=== PATIENT | female | born 1995 | race Caucasian/White ===

== ENCOUNTER → 2017-09-01 10:30 | Outpatient (CLI) | payer OTHER, SELFPAY | PROVIDERS: Visit Provider Obstetrics & Gynecology | DX: Z12.4 Encounter for screening for malignant neoplasm of cervix (principal) | CPT/HCPCS: 88175; G0145 ==

== ENCOUNTER → 2019-07-25 | Outpatient (CLI) | payer OTHER, SELFPAY ==
[2019-07-28 17:56] LABS: HPV Reflexed? NOT INDICATED
== END | disposition home or self-care (01) ==
PROVIDERS: Referring Provider Obstetrics & Gynecology; Visit Provider Obstetrics & Gynecology
DX: Z12.4 Encounter for screening for malignant neoplasm of cervix (principal)
CPT/HCPCS: 88175; G0145

== ENCOUNTER 2020-02-13 19:51 | Emergency (ER) | payer OTHER, SELFPAY ==
[2020-02-13 19:52] VITALS: BP 146/70; PULSE 89; RESP 16; TEMP 36.4; O2SAT 99; BMI 43.2
--- NOTE | 2020-02-13 20:12 | US_ITS ---
STUDY: ULTRASOUND TRANSVAGINAL CLINICAL: Female, 25 years old. Dysfunctional uterine bleeding. Bleeding since IUD removal in SEPTEMBER. TECHNIQUE: Transvaginal COMPARISON: None. FINDINGS: The uterus is anteverted and tilted to the left. It measures 9.5 x 4.7 x 5.7 cm There are no myometrial masses. Normal endometrial thickness measuring 20 mm. The endometrium is heterogenous.. There are no endometrial masses, and there is no fluid in the endometrial cavity. Is a nabothian cyst within the cervix. Normal right ovary, measuring 4.3 x 3.4 x 3.1 cm. There is a 3.2 x 2.6 x 2.4 cm simple cyst. DOPPLER signal in the right ovary is limited due to patient habitus and bowel gas. Left ovary is not visualized due to bowel gas and patient habitus. No left adnexal mass. There is mild free fluid in posterior cul-de-sac. Polycystic ovary disease: No. US/Transvaginal Non- IMPRESSION: 1. Thickened heterogenous endometrium. 2. Nabothian cyst. 3. Large right ovarian cyst. Left ovary is obscured. 4. Minimal free fluid in the posterior cul-de-sac. Electronically Signed: Johnnie Gleason DO at 21:33 EST Tel [phone], Service support ,
--- NOTE | 2020-02-13 20:13 | ED.VIS.GEN ---
History of Present Illness Chief Complaint: Vag Bleeding Informant: Patient Narrative: Patient is a 25-year-old female who presents to the emergency department for heavy vaginal bleeding. She states that she has had a chronic issue with this since being stopped on her IUD in October. She has had intermittent heavy bleeding since then. She is currently on a progesterone taper. This was started yesterday. She completed a similar taper last week which did help temporarily but when she came off it she started bleeding again. She states on average she typically will fill up to 4 menstrual cups. She did feel mildly lightheaded today but denies any chest pain, shortness of breath or heart palpitations. She does have some suprapubic abdominal cramping with this. She is on a progesterone only control she does have a history of blood clots. She denies any bleeding or easy bruising elsewhere. She denies any fevers or chills. No urinary symptoms. She denies ever being . Past Medical History - Allergies and Home Meds Allergies/Adverse Reactions: Allergies No Known Allergies Allergy (Verified 02/13/20 19:55) Prior records reviewed: Yes Smoking Status: Never smoker Review of Systems All systems negative except as indicated General: Denies: Chills, Fever, Sweats Eyes: Denies: Visual changes - bilaterally, Diplopia ENT: Denies: Rhinorrhea, Sore throat Cardiovascular: Denies: Chest pain, Palpitations Respiratory: Denies: Dyspnea, Cough, Dyspnea on exertion Gastrointestinal: Denies: Abdominal pain, Nausea, Vomiting, Diarrhea Genitourinary: Denies: Dysuria, Hematuria, Frequency Musculoskeletal: Denies: Back pain, Extremity Pain Skin: Denies: Rash, Wounds Neurological: Denies: Headache, Weakness, Numbness Physical Exam Vital Signs/Narrative: Vital Signs Temp Pulse Resp BP Pulse Ox 02/13/20 19:52 97.6 F L 89 16 146/70 H 99 Inital Vital Signs reviewed: Yes General: Well nourished, Well developed, No Acute Distress Head: Normocephalic, Atraumatic Eyes: Perrl, EOMI ENT: Moist mucous membranes, No rhinorrhea Neck: Supple, Nontender Cardiovascular: Regular rate, Regular rhythm, No murmurs Respiratory: No distress, CTA bilaterally, Chest nontender Abdomen: Soft, Nontender, Nondistended, Normal bowel sounds Back: Nontender, Normal Inspection. Negative for: CVA tenderness Extremities: Nontender, No edema Skin: Normal color, No rash Neurological: Alert, Normal Strength, Normal Sensation Psychological: Normal affect, Normal Mood Diagnostic/Tx/Re-eval - Medical Decision Making Patient presents to the emergency department for heavy vaginal bleeding. Upon arrival to the emergency department blood pressure within normal limits and she is not tachycardic. She does not appear in any acute distress. No significant pain on palpation of her abdomen. Will check basic lab work to evaluate for anemia status and obtain ultrasound of the pelvis. Patient's H&H did not reveal the patient to be significantly anemic. Does have a mildly elevated white blood cell count. Ultrasound of the pelvis showed a thickening of the endometrium as well as a nabothian cyst. No significant acute abnormality. She otherwise has been stable throughout ED stay. She is going to follow-up with her [employer] tomorrow. Warning signs and symptoms for which to return to the ED are reviewed with her. She understands and is agreeable this plan. All questions answered. ED Disposition - Plan for ED Patient: Disposition: Home or Assisted Living Diagnosis: Dysfunctional uterine bleeding Instructions: ED Bleed Irregular Vaginal Referrals: Tona Herron MD [Primary Care Provider] - 2 Days
[2020-02-13 20:29] LABS: Bacteria 0 SEEN /hpf (None Seen); Mucous, Urine 0 SEEN /hpf (<or=2+); Red Blood Cells-Urine 0 SEEN /hpf (0-5); White Blood Cells 0 SEEN /hpf (0-5)
[2020-02-13 20:37] LABS: Color, Urine Yellow (Yellow); Glucose, Dipstick Normal (Normal); Ketone-Dipstick 50 mg/dl (Negative); Leukocyte Esterase-Dipstick Negative /ul (Negative); Nitrite-Dipstick Negative (Negative); Occult Blood-Urine 25 /ul (Negative); Protein-Dipstick 30 mg/dl (Negative); Specific Gravity, Urine 1.015 (1.002-1.030); Urine Bilirubin Dipstick Negative (Negative); Urine Clarity Clear (Clear); Urine Urobilinogen Normal (Normal); Urine pH 6.5 (5.0 - 8.0)
[2020-02-13 20:39] LABS: Internal QC Validated? YES +Cl - CLEAR BKGD; Pregnancy, Urine Negative Negative
[2020-02-13 20:43] LABS: Absolute Lymphocyte Count 2.71 X10^3/uL (0.83-4.51); Absolute Neutrophil Count 12.4 X10^3/uL (2.0-7.7); Basophil# 0.04 X10^3/uL; Basophil% 0.2 % (0-1); Eosinophil# 0.04 X10^3/uL; Eosinophils% 0.2 % (0-5); Hematocrit 37.7 % (37-47); Hemoglobin 11.8 g/dL (12.0-15.0); Lymphocyte # 2.71 X10^3/ul (4.0); Lymphocyte % 16.6 % (19-41); Mean Corp Hgb Conc 31.3 g/dL (32-36); Mean Corpuscular Hgb 25.8 pg (27.0-32.0); Mean Corpuscular Volume 82.5 fL (81-99); Mean Platelet Vol. 11.2 fl (6.2-12.0); Monocyte# 1.07 X10^3/uL; Monocyte% 6.5 % (0-10); NRBC Flagged by Analyzer 0 % (0-5); Neutrophil # 12.44 X10^3/uL (2.7-7.7); Neutrophil % 76.2 % (47-70); Platelet Count 446 K/mm3 (150-450); RBC Distribution Width SD 44.8 fl (35.1-43.9); Red Blood Count 4.57 M/mm3 (4.2-5.4); White Blood Count 16.4 K/mm3 (4.4-11.0)
[2020-02-13 20:44] LABS: Squamous Epithelial Cells - UA 0-5 SEEN /hpf (5-10)
[2020-02-13 20:59] LABS: Anion Gap 10 (5-15); BUN 14 mg/dL (7-18); BUN/Creat Ratio 16.1 RATIO (10-20); Calcium,Total 9.1 mg/dL (8.5-10.1); Chloride 107 mmol/L (98-107); Creatinine, Serum 0.87 mg/dL (0.55-1.02); EST Glomerular Filtration Rate 83 mL/min (>60); Est Glom Filt Rate - Afr Amer 101 mL/min (>60); Glucose 88 mg/dL (74-106); Potassium 3.5 mmol/L (3.5-5.1); Sodium Level 139 mmol/L (136-145)
== END 2020-02-13 21:44 | disposition home or self-care (01) ==
PROVIDERS: Emergency Provider Emergency Medicine; PCP Family Medicine
DX: N93.8 Other specified abnormal uterine and vaginal bleeding (principal); Z86.718 Personal history of other venous thrombosis and embolism
CPT/HCPCS: 76830; 80048; 81001; 81025; 85025; 99282; A4216

== ENCOUNTER → 2020-02-17 14:48 | Outpatient (CLI) | payer OTHER, SELFPAY ==
[2020-02-13 19:52] VITALS: BMI 43.2
--- NOTE | 2020-02-17 14:40 | EMB_PTH ---
PATIENT: JAZMYN CASTELLANOS LOC: [facility] U#:[id number] AGE/SX: 30/F ROOM: RE02/17/[address]: Dr. Armen Herron MD : 1995 BED: DIS: SPEC #: [id number] RECD: 02/17/20 16:08 STATUS: SUSAN RETenzin #: [id number] NEENA: 02/17/20 14:[address]: Armen Herron DEPT: SURGICAL PATHOLOGY RECD BY: Lori Hdz ENTERED: 02/20/20 08:29 SP TYPE: ENDOM BX/C HERNANDEZ DR: Dr. Tona Herron MD Tissues: Endometrium, NOS Procedures: Surgery Specimen Level IV HEADER OPERATION: Endometrial biopsy PRE-OP DIAGNOSIS: Menometrorrhagia TISSUE SUBMITTED: Endometrial biopsy MICROSCOPIC DIAGNOSIS Endometrial biopsy: Fragments of benign endometrial tissue with extensive exogenous hormone effects. SJ:prabhakar 02/21/20 MICROSCOPIC DESCRIPTION Slides are reviewed. GROSS DESCRIPTION Received in fixative is one container labeled with the patient's name and designated EMB. The specimen consists of multiple fragments of hemorrhagic soft tissue that in aggregate measure 5 x 3 x 0.3 cm. The entire specimen is submitted in two cassettes. / SJ:prabhakar 02/20/20 TC:5 CPT: 51502
[2020-02-17 16:43] LABS: Follicle Stimulating Hormone 0.4 mIU/mL; Luteinizing Hormone < 0.2 mIU/mL; Prolactin 31.2 ng/mL
[2020-02-20 10:33] LABS: T4 Free Direct 1.14 ng/dL (0.76-1.46); Thyroid Stim Hormone (TSH) 0.52 uIU/mL (0.358-3.74)
[2020-02-24 21:28] LABS: 17-Hydroxyprogesterone 28 ng/dL (.)
== END ==
PROVIDERS: PCP Family Medicine; Visit Provider Obstetrics & Gynecology
DX: N92.0 Excessive and frequent menstruation with regular cycle (principal)
CPT/HCPCS: 36415; 82627; 83001; 83002; 83498; 84146; 84402; 84439; 84443; 88305; 82626

== ENCOUNTER 2020-03-12 09:55 | Day surgery (SDC) | payer OTHER, SELFPAY ==
--- NOTE | 2020-03-11 20:58 | HP.PCM_ITS ---
History and Physical Date of Admission: 03/12/20 Surgical History and Physical Laura Geiger, a 25 year old female 0 0 0 0 0, presents for D and C and hysteroscopy on March 12, 2020 at 11:45. -- Menorrhagia not responsive to medical management. Menorrhagia which began 7 months ago. Laura claims it started gradually and has been present 7 months. It is located in the Uterus. Severity is severe and worsening; It is relieved by progesterone taper. Associated signs and symptoms are cramps. MEDICATIONS HISTORY: Current medications prescribed by our practice are: 1. Aygestin 5 mg tablet, 1 daily ALLERGIES: NKDA Infections - chicken pox vaccine Illnesses - none Accidents - None Hospitalizations - see surgery Review of Systems: GENERAL - Denies fever, or chills SKIN - Denies skin changes EYES - Denies visual changes EARS - Denies difficulty hearing NOSE - Denies nasal congestion or bleeding MOUTH - Denies sore throat or difficulty swallowing NECK - Denies pain or swelling RESPIRATORY - Denies shortness of breath or wheezing CARDIOVASCULAR - Denies palpitations or chest pain GASTROINTESTINAL - Denies nausea, vomiting, diarrhea, constipation GENITOURINARY - prolonged vaginal bleeding MUSCULOSKELETAL - Denies joint or muscle pain NEUROLOGICAL - Denies localized numbness or weakness PSYCHIATRIC - Denies depression or anxiety ENDOCRINE - Denies heat or cold intolerance, weight loss or gain HEMATO-IMMUNOLOGIC - Denies excesive bleeding with cuts SOCIAL HISTORY: Alcohol Use - None Smoking - Never Diet - no special diet Lifestyle - moderate stress lifestyle and single Exercise - active Seat Belt Use - most of the time Employer - [employer] 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 Appendectomy, 2001 ; Romario Herron - 2. 2010 (L) ACL Reconstruction ; - 3. Lt Knee sx for meniscus repair 2017 ; Dr Ole Herron - 4. Ankle Surgery/plate and screws, 2018 ; - PHYSICAL EXAM BP- 130/84 R lower arm Weight- 262.79907 lbs Height- 64 inch BMI:45.07 CONSTITUTIONAL - NAD, well nourished, and well developed SKIN - No rash, lesions, or ulcers HEENT - Normocephalic, PERRLA, EOMI NECK - No nodes, no nuchal rigidity and thyroid normal size and texture LYMPH NODES - Palpation of lymph nodes in neck and groins within normal limits ABDOMEN - Without hepatosplenomegaly, distention, masses, rebound, or guarding; normal bowel sounds; no hernias EXTREMITIES - No edema or calf tenderness NEUROLOGICAL - Cranial nerves II-XII grossly intact PSYCHIATRIC - A and O to time, place, person, mood and affect External Genitial Vagina - non-tender without lesions Urethra/Urethral Meatus - non-tender Bladder - non-tender Vagina - vaginal issa are pink and moist without loss of rugae and no evidence of atropy Cervix - without cervical motion tenderness and has normal size and features without evident lesions Uterus - 5-6 cm in size, mobile and nontender Adnexa - clear without massess or tenderness ASSESSMENT/PLAN: 1. Irregular Menstrual Cycle Pt with AUB for her whole life. Pt has been on multiple Aygestin tapers with some relief. Initially had relief from IUD then had bleeding again and cramping, IUD was removed. Hx of PE after ankle surgery. Avoiding OCP. EMB benign follicular phase. Labs with elevated testosterone PCOS in appearance. Pt currently on Aygestin 5mg. After discussing Progesterone only vs IUD with or without Progeterone pill pt elects for Progesterone only pill. Also desires to take natural pathic meds. Not working so desires to proceed with D and C. Discussed RBAs and all questions answered.
[2020-03-12] VITALS (9 sets, daily range): BP systolic 107–135; BP diastolic 53–86; PULSE 52–73; RESP 14–16; TEMP 36.2–37.1; O2SAT 92–100; BMI 42.9
[2020-03-12 10:24] LABS: Hematocrit 41.1 % (37-47); Hemoglobin 12.5 g/dL (12.0-15.0); Mean Corp Hgb Conc 30.4 g/dL (32-36); Mean Corpuscular Volume 82.2 fL (81-99); Mean Platelet Vol. 10.7 fl (6.2-12.0); Platelet Count 408 K/mm3 (150-450); RBC Distribution Width CV 13.2 % (11.6-14.6); RBC Distribution Width SD 39.8 fl (35.1-43.9); White Blood Count 8.6 K/mm3 (4.4-11.0)
[2020-03-12 10:33] LABS: International Normalized Ratio 1.2; Partial Thromboplast Time 27.1 Seconds (24.1-36.2); Prothrombin Time (Protime)PT. 14.3 SECONDS (11.7-14.9)
[2020-03-12 10:37] LABS: Internal QC Validated? YES +Cl - CLEAR BKGD; Pregnancy, Urine Negative Negative
[2020-03-12] MEDS: Lactated Ringers 1,000 ML 100 ML IV ×2 (10:53→14:49)
[2020-03-12 10:54] LABS: Internal QC Validated? YES +Cl - CLEAR BKGD; Pregnancy, Serum, hCG Quali. NEGATIVE Negative
--- NOTE | 2020-03-12 11:14 | PCM.OPRPT ---
Report of Operation Date of Procedure: 03/12/20 Pre-Operative Diagnosis: Irregular Menstrual Bleeding Post-Operative Diagnosis: Irregular Menstrual Bleeding, Endometrial Polyps Surgery/Procedure Performed:: Diagnostic Hysteroscopy and Dilation and Curettage Description of Surgical Findings:: 8 cm endometrial cavity without fibroids. A single 0.25 cm polyp was noted near the right internal ostia and two 0.25 cm polyps were noted near the left internal tubal ostia. These were removed with the D&C specimen. Type of Anesthesia:: MAC Anesthesiologist: Chelsy Nevarez Specimen's removed: Endometrial curettings Estimated Blood Loss (mL): Minimal Fluids Replaced: Crystalloid Description of Procedure: Surgeon: Juma Das MD, FACOG Indications: This is a 25 year old patient who has the above diagnosis. The patient has been counseled regarding the risk and indications of this procedure including the possibility of bleeding, infection, and injury to surrounding structures such as bowel bladder. All questions were answered and we consider the patient well-informed. Procedure: The patient was taken to the operating room where after induction of general anesthesia, she was placed in the dorsolithotomy position and prepped and draped in the usual sterile fashion. The bladder was drained of approximately 300 cc of clear yellow urine with a red rubber catheter. Anterior cervix was grasped with the tenaculum and dilated to about 4-5 mm. A 3 mm hysteroscope was placed in the uterus of the above findings were noted. Cervix was dilated to about 7-8 mm and uterus was gently curetted removing all contents. Hysteroscope was reinserted and all material was noted to be removed. In the course of the procedure approximately 100 cc of saline distending media was used and virtually all of this was recovered. Patient tolerated procedure well was taken to recovery room in satisfactory condition sponge instrument and needle counts were all reportedly correct. Ancef 1 g IV was given in the course of the procedure. Estimated blood loss for the case was minimal. Specimens to pathology was endometrial curettings Complications: None Grafts/Implants Used: None - Admit VTE Documentation VTE Present on Admission: Yes VTE Mechan Device Prophylaxis: SCD's
--- NOTE | 2020-03-12 11:19 | DCINST_ITS ---
Discharge Diet: No Restrictions Discharge Activity: Return to Normal Activity, May Shower, May Take a Tub Bath May resume sexual activity in: 2 weeks Call your doctor if you observe: Fever of 101 or Higher, Inability to urinate, Inability to have a bowel movement, Using more than one pad per hour Allergies/Adverse Reactions: Allergies No Known Allergies Allergy (Verified 03/06/20 09:32) Medications to take at Discharge Aspirin E.C. [Ecotrin] 81 mg PO DAILY@0800 03/06/20 Norethindrone [Dian] 0.35 mg PO DAILY 03/06/20 Prebiotic 1 cap PO DAILY 03/06/20 Orders to be completed after discharge: Type & Screen - PAT ONLY Time Frame: 03/12/20, Facility: [facility], Location: Laboratory Primary Care Physician: Tona Herron MD [Primary Care Provider] - Test Results: Test results from this visit will be discussed in further detail at your follow- up appointment, if applicable. Please Follow Up With: Juma Das MD When: 2 to 3 weeks
--- NOTE | 2020-03-12 11:50 | EMB_PTH ---
PATIENT: JAZMYN CASTELLANOS LOC: [facility] [place] U#:[id number] AGE/SX: 25/F ROOM: RE03/12/[address]: Dr. Juma Das MD : 1995 BED: DIS: 03/12/2020 SPEC #: [id number] RECD: 03/12/20 12:28 STATUS: SUSAN TERA #: [id number] NEENA: 03/12/20 11:[address]: Juma Das DEPT: SURGICAL PATHOLOGY RECD BY: Lori Hdz ENTERED: 03/12/20 12:55 SP TYPE: ENDOM BX/C HERNANDEZ DR: Dr. Tona Herron MD Tissues: Endometrium, NOS Procedures: Surgery Specimen Level IV HEADER OPERATION: Hysteroscopy, dilation and curettage PRE-OP DIAGNOSIS: Irregular menstrual cycle; uterine polyps TISSUE SUBMITTED: Endometrial curettings and uterine polyp MICROSCOPIC DIAGNOSIS Endometrial curettings and uterine polyp: Proliferative endometrium. Mild chronic endometritis. Fragments of benign ectocervical epithelium and benign endocervical mucosa. Fragments of myometrium. See comment. CLARISSE:prabhakar 03/13/20 COMMENT Please make reference to previous specimen ([id number]) endometrial biopsy with diagnosis of fragments of benign endometrial tissue with extensive exogenous hormone effects. MICROSCOPIC DESCRIPTION Slides are reviewed. GROSS DESCRIPTION Received in fixative is one container labeled with the patient's name and designated endometrial curettings and uterine polyp. The specimen consists of multiple fragments of hemorrhagic soft tissue that in aggregate measure 7.5 x 3 x 0.3 cm. The specimen is totally submitted in three cassettes. / CLARISSE:prabhakar 03/12/20 TC:5 CPT: 14696
[2020-03-12] MEDS: Cefotetan 2 GM in 0.9% NS 100 ML IV (11:51)
== END 2020-03-12 15:32 | disposition home or self-care (01) ==
LOC: SDC 09:57 → AC 09:57
PROVIDERS: Anesthesiology; PCP Family Medicine; Referring Provider Obstetrics & Gynecology; Visit Provider Obstetrics & Gynecology
PROC: 0UDB8ZZ Extraction of Endometrium, Via Natural or Artificial Opening Endoscopic (ICD-10-PCS; CPT 58558; principal; 2020-03-12 11:40)
DX: N92.6 Irregular menstruation, unspecified (principal); N84.0 Polyp of corpus uteri; N71.1 Chronic inflammatory disease of uterus; G47.30 Sleep apnea, unspecified; Z79.3 Long term (current) use of hormonal contraceptives; Z20.828 Contact with and (suspected) exposure to other viral communicable diseases
CPT/HCPCS: 00952; 58558; 36415; 81025; 84703; 85027; 85610; 85730; 86850; 86900; 86901; 87426; 88305; C9803; J7120

== ENCOUNTER 2021-05-01 14:45 | Outpatient (CLI) | payer OTHER, SELFPAY ==
[2021-05-06 11:40] LABS: HPV Reflexed? NOT INDICATED
== END 2021-05-01 23:59 | disposition short-term general hospital (02) ==
LOC: LABSPEC 14:46
PROVIDERS: PCP Family Medicine; Visit Provider Obstetrics & Gynecology
DX: Z12.4 Encounter for screening for malignant neoplasm of cervix (principal)
CPT/HCPCS: 88175; G0145

== ENCOUNTER → 2022-12-05 | Outpatient (CLI) | payer OTHER, SELFPAY ==
[2022-12-05 16:08] LABS: Hemoglobin A1c 5.5 % (3.8-5.6)
[2022-12-05 16:49] LABS: Estradiol 112.8 pg/mL; Follicle Stimulating Hormone 2.4 mIU/mL; Luteinizing Hormone 1.5 mIU/mL; Prolactin 12.5 ng/mL; T4 Free Direct 0.93 ng/dL (0.76-1.46); Thyroid Stim Hormone (TSH) 0.81 uIU/mL (0.358-3.74)
[2022-12-12 11:09] LABS: Testosterone, % Free 1.38 % (0.50-2.80); Testosterone, Free 0.29 ng/dL (0.10-0.85); Testosterone, Total 21 ng/dL (13-71)
== END | disposition home or self-care (01) ==
LOC: WOBLAB 15:25
PROVIDERS: PCP Family Medicine; Visit Provider Obstetrics & Gynecology
DX: N93.9 Abnormal uterine and vaginal bleeding, unspecified (principal)
CPT/HCPCS: 36415; 82627; 82670; 83001; 83002; 83036; 84146; 84402; 84403; 84439; 84443; 82626

== ENCOUNTER 2024-10-21 12:24 | Emergency (ER) | payer OTHER, SELFPAY ==
[2024-10-21 12:24] VITALS: BP 128/81; PULSE 81; RESP 14; TEMP 36.7; O2SAT 98; BMI 41.0
[2024-10-21 14:24] VITALS: BP 128/70; PULSE 70; O2SAT 100
--- NOTE | 2024-10-21 15:10 | EX.ED.DYSGE1 ---
HPI History of Present Illness Chief Complaint: Headache Narrative Narrative: Chief complaint and HPI: Headache. 29-year-old female who is at 23 weeks presents for evaluation of headache. Patient states several days ago she woke up with a mild headache that progressively worsened. Associated symptoms are light and sound sensitivity. She states she has been taking Tylenol with some relief. She has had headaches in the past. She denies any fever, chills, neck pain, vision changes, numbness/tingling, weakness, neurological deficit, vomiting, URI symptoms, chest pain, shortness of breath. She states that she has baseline nausea from her . Patient was seen at the [employer]OR [employer] office today in which they told her to come over to the emergency department to receive a migraine cocktail. Review of systems: See HPI Medications: As listed on the chart Allergies: As listed on the chart PFSH: Per chart Vital signs: As listed on the chart. Reviewed. Physical exam: Gen: A&O x3, NAD, sitting with the lights dimmed Head: Normocephalic, atraumatic Eyes: No sclera icterus, conjunctiva clear, PERRL, EOMI ENT: TMs clear BL, moist mucous membranes, no facial asymmetry CV: RRR, no murmurs, no peripheral edema Resp: Lungs CTA BL, no w/r/c Musc: Full ROM, no deformity, strength +5/5 in all extremities Skin: Warm, dry, intact Neuro: Alert, oriented, grossly intact, sensation intact, no focal deficits Psych: Cooperative, appropriate mood and affect PFSH PFSH Medical History no medical history Home Medications ?Medication ?Instructions ?Recorded ?Last Taken ?Type Norethindrone [Dian] 0.35 mg PO DAILY 03/06/20 Unknown History Prebiotic 1 cap PO DAILY 03/06/20 Unknown History aspirin 81 mg tablet,delayed 81 mg PO DAILY@0800 03/06/20 Unknown History release Allergy/AdvReac Type Severity Reaction Status Date / Time No Known Allergies Allergy Verified 10/21/24 12:25 Surgical History no surgical history Social History Smoking Status: Never smoker EXAM Physical Exam Const Vital Signs: 10/21/24 12:24 10/21/24 14:24 Temperature 98.1 F Temperature Source Temporal Pulse Rate 81 70 Respiratory Rate 14 Blood Pressure 128/81 H 128/70 H Blood Pressure Mean 96 89 Pulse Ox 98 100 Oxygen Delivery Method Room Air MDM MDM MDM Narrative Medical decision making narrative: 29-year-old female who is at 23 weeks presents for evaluation of headache. Patient states several days ago she woke up with a mild headache that progressively worsened. Associated symptoms are light and sound sensitivity. She states she has been taking Tylenol with some relief. Patient was seen at the [employer] office today in which they told her to come over to the emergency department to receive a migraine cocktail. Denies acute onset of headache reaching maximal intensity in under one hour. The onset of the headache was not timed with exertional activity or trauma. Patient has not experienced any fever, unusual neck pain or stiffness, syncope, near syncope, neurological deficit. On presentation, patient in no acute distress. Her vitals are stable. Physical exam is unremarkable. Patient's symptoms consist of tension headache, migraine headache. Will give migraine cocktail however given she is will not give Toradol and instead will give morphine. Patient was given the risk and benefits of morphine during . She consented. On reevaluation, patient states her headache has improved. Patient is stable to discharge home. Follow-up with primary care physician. Return precautions explained. She felt understand the plan. Patient stable to discharge home. Impression: 1. Headache, suspect migraine 2. Second trimester Discharge Plan Triage Chief Complaint: Headache ED Provider: Aldo Rodriguez Dx/Rx/DC Orders Prescriptions: No Action aspirin 81 MG tablet 81 mg PO DAILY@0800 Norethindrone [Dian] 0.35 MG tablet 0.35 mg PO DAILY Prebiotic 1 cap PO DAILY Primary Care Provider: Tona Herron Referrals: Tona Herron MD [Primary Care Provider] - Print Language: Azeri
[2024-10-21] MEDS: 0.9% Normal Saline (1000mL) 1,000 ML 1000 ML IV (15:27)
[2024-10-21] MEDS: DiphenhydrAMINE 50 MG/ML Syringe 25 MG IV (15:27)
[2024-10-21 16:00] VITALS: BP 103/59; PULSE 61; RESP 22; O2SAT 99
[2024-10-21 16:22] VITALS: BP 103/59; PULSE 61; RESP 22; TEMP 37; O2SAT 99
== END 2024-10-21 16:26 | disposition home or self-care (01) ==
PROVIDERS: Emergency Provider Surgery; PCP Family Medicine; Visit Provider Surgery
DX: O99.891 Other specified diseases and conditions complicating pregnancy (principal); R51.9 Headache, unspecified; Z3A.23 23 weeks gestation of pregnancy
CPT/HCPCS: 96361; 96374; 96375; 99284; A4216

== ENCOUNTER 2024-12-26 14:20 | Outpatient (CLI) | payer OTHER, SELFPAY ==
[2024-12-26 14:38] VITALS: BP 136/70; PULSE 77
[2024-12-26 14:43] VITALS: BMI 41.6
[2024-12-26 15:29] LABS: ROM Internal Control Test YES-OK TO RESULT pt. (Internal QC); ROM Patient Test Negative (Negative)
[2024-12-26 15:30] LABS: Record Kit Lot#, ROM+ K3358
--- NOTE | 2024-12-26 18:26 | OB.TRI.NOTE ---
HPI - General General Date of Admission: 12/26/24 Date of Service: 12/26/24 Chief Complaint: LOF HPI Narrative JAZMYN CASTELLANOS, is a 29 F who presents after 1 gush of fluid at home. no further leaking or gushes of fluid. no bleeding or ctx's. good FM. PFSH PFSH Home Medications ?Medication ?Instructions ?Recorded ?Last Taken ?Type aspirin 81 mg tablet,delayed 81 mg PO DAILY@0800 03/06/20 12/25/24 21:30 History release calcium carb-ergocalciferol (vit tab PO 12/26/24 12/25/24 21:30 History D2) 600 mg calcium-200 unit tablet coenzyme Q10 100 mg capsule (Co 100 mg PO DAILY 12/26/24 12/26/24 12:30 History Q-10) metformin 500 mg tablet,extended 1,000 mg PO BID 12/26/24 12/26/24 12:30 History release 24 hr vit no.95-ferrous 1 tab PO DAILY 12/26/24 12/26/24 10:30 History fumarate 28 mg-folic acid 800 mcg tablet () Allergy/AdvReac Type Severity Reaction Status Date / Time chlorhexidine (From AdvReac Rash Verified 12/26/24 15:00 Hibiclens) Latex, Natural Rubber AdvReac Rash Verified 12/26/24 14:45 Social History Smoking Status: Never smoker NST FHR Rate Baby A Baseline: 140 Variability:: Moderate Accelerations:: 15 x 15 Decelerations:: None NST Reactive:: Yes FHR Category:: Category I Uterine Activity:: none Assessment & Plan (1) 33 weeks gestation of : (2) Vaginal discharge: PLAN: 1small gush of fluid at home. No continuous or further leaking. Pad dry during observation in triage ROM plus negative Return precautions given
== END 2024-12-26 16:06 | disposition home or self-care (01) ==
LOC: WPOUT 14:29 → WP 14:31
PROVIDERS: PCP Family Medicine; Referring Provider Obstetrics & Gynecology; Visit Provider Obstetrics & Gynecology
DX: O99.891 Other specified diseases and conditions complicating pregnancy (principal); N89.8 Other specified noninflammatory disorders of vagina; Z3A.33 33 weeks gestation of pregnancy
CPT/HCPCS: 59025; 59050; 84112; 99221; G0378

== ENCOUNTER 2025-01-19 13:41 | Outpatient (CLI) | payer OTHER, SELFPAY | END 2025-01-19 14:25 | disposition home or self-care (01) | LOC: WPOUT 13:42 → WP 13:42 | PROVIDERS: PCP Family Medicine; Referring Provider Obstetrics & Gynecology; Visit Provider Obstetrics & Gynecology | DX: Z34.90 Encounter for supervision of normal pregnancy, unspecified, unspecified trimester (principal) | CPT/HCPCS: 96158 ==

== ENCOUNTER 2025-01-31 19:13 | Inpatient (IN) | payer OTHER, SELFPAY ==
--- OUTSIDE RECORDS SUMMARY | 2025-01-31 19:03 | XMS RPT_ITS | CCD ---
Author Organization [facility] Inform ion Partnership [facility] Care Team Providers Care Nocturnist Name Role Phone Unavailable [facility] Unavail able [facility] Primary Care Provider Unavail able DAIANA ESPOSITO Attending Unavaila ble VANNESA HOOD Attending Unavailable ALFRED HOOD C.N.PJuanjo Attending Unavailabl e ALFRED HOOD.N.PJuanjo Attending [facility] [place] Primary Care Provider Unavail able CL BLANC MD Admitting Unavailable CL BLANC MD Attending Unavailable CL BLANC MD Primary Care Unavailable REINA BOGGS MD Consulting Unavailable PROVIDER, UNKNOWN Consulting Unavailable PROVIDER, UNKNOWN Consulting Unavailable PROVIDER, UNKNOWN Consulting Unavailable YASMIN DELVALLE Referring Unavailable MARY MENJIVAR Attending Unavailable CL BLANC Referring UnaJULIA Srinivasan Referring Unavailable Dr. Aldo Rodriguez DO Emergency Provider Jose C MARION, Dr. Aquino Primary Care Provider [facility], RJ Almeida Unavailable [phone] GRAHAM Unavailable Unavailable OLE BOGGS MD Unavailable AMANDA NEWTON Unavailable BLESSING PENA MD Unavailable [phone] JENA ELLSWORTH Unavailable Unavailable Elle CHASE MD Unavailable [phone] Dara Boggs Unavailable Unavailable Jane BOGGS MD Unavailable Lesly Butler Unavailable Unavailable Chloe Burnett Unavailable Unavailable SAURABH, XOCHITL Unavailable Unavailable Jono, Tasha Unavailable Unavailable Jono, Kulwinder Unavailable Unavailable EMANUEL, BRENT Unavailable Unavailable Castro, Antoinette Unavailable Unavailable Unavailable Unavailable Michael WAN, Dr. Carlson Attending Provider Dr. Lisandro Palencia DO Attending Provider Talha DO, Dr. Bryant Referring Provider Tad Ashley Attending Unavailable Mishra, Ashley Admitting Unavailable Pnea, Blessing Primary Care Unavailable Mishra, Ashley Referring Unavailable Wiswell, Lisandro Referring Unavailable Wiswell, Lisandro Attending Unavailable Pena, Blessing Primary Care Unavailable Aldo Rodriguez Attending Unavailabl e Pena, Blessing Primary Care Unavailable Wiswell, Lisandro Referring Unavailable Wiswell, Lisandro Attending Unavailable Pena, Blessing Primary Care Unavailable MISHRA, ASHLEY Referring Unavailable MISHRA, ASHLEY Referring Unavailable MISHRA, ASHLEY Attending Unavailable YASMIN DELVALLE Attending Unavailable MISHRA, ASHLEY Referring Unavailable MISHRA, ASHLEY Attending Unavailable MISHRA, ASHLEY Referring Unavailable MIR, JULIA Referring Unavailable MISHRA, ASHLEY Attending Unavailable SELF Referring Unavailable JUNE, MARYANN Referring Unavailable DEVANG DELUNA Attending Unavailable YASMIN DELVALLE Attending Unavailable DEVANG DELUNA Attending Unavailable MIR, JULIA Attending Unavailable RENETTA CABRERA Attending Unavailable [facility] Referring Glenny vailable MIR, JULIA Referring Unavailable MISHRA, ASHLEY Attending Unavailable MIR, JULIA Referring Unavailable CITLALY STUART Attending Unavail able MISHRA, ASHLEY Referring Unavailable ADELIA, YASMIN L Attending Unavailable MISHRA, ASHLEY Referring Unavailable MISHRA, ASHLEY Attending Unavailable WISWELL, LISANDRO Attending Unavailable MISHRA, ASHLEY Referring Unavailable MIR, JULIA Referring Unavailable MISHRA, ASHLEY Referring Unavailable ADELIA, YASMIN L Referring Unavailable Allergies Allergy Classification Reported Allergen(s) Allergy Type Date of Onset Reaction(s) Facility (20 sources) Chlorhexidine; Translations: [CHLORHEXIDINE] Drug Allergy 4 Itching [facility] Comment on above: [facility] (20 sources) Latex; Translations: [LATEX] Drug Allergy 5 Rash [facility] (3 sources) Hibiclens *ANTISEPTICS & DISINFECTANTS* 1 Eczema [facility] (1 source) natural latex rubber Propensity to adverse reactions 5 Rash [facility] (1 source) Chlorhexidine Drug Allergy 5 [facility] (1 source) natural latex rubber Drug allergy (disorder) 5 [facility] Medications Current Medications Medication Drug Class(es) Dates Sig (Normalized) Sig (Original) aspirin 81 mg delayed release oral tablet (20 sources) Platelet Aggregation Inhibitor, Nonsteroidal Anti-inflammatory Drug Start: 03-06-2020 take 1 tablet by mouth once daily aspirin, enteric coated (ECOTRIN LOW STRENGTH) 81 mg EC tablet Indications: Encounter for care in first trimester of first (HCC) , 7 weeks gestation of (HCC) Take 1 tablet by mouth once daily. 90 tablet 3 06/27/2024 Active benzonatate 100 mg oral capsule (1 source) Non-narcotic Antitussive Start: 06-18-2022 End: 06-25-2022 take 2 capsules by mouth three times daily as needed for cough benzonatate (TESSALON PERLES) 100 mg capsule Indications: Viral upper respiratory tract infection Take 2 capsules by mouth three times daily as needed for cough for up to 7 days. 42 capsule 0 06/18/2022 06/25/2022 Active Comment on above: Take 2 capsules by m out three times daily as needed for cough for up to 7 days. Breast Pump (6 sources) Start: 11-23-2024 End: 11-23-2025 Breast Pump Use as directed 1 each 11/23/2024 11/23/2025 Active Calcium Carbonate / vitamin D3 (20 sources) take 1 capsule by mouth once daily calcium carbonate/vitamin D3 (CALCIUM 600 + D ORAL) Take 1 capsule by mouth once daily. 200 international unit(s) of Vitamin D Active Calcium Carbonate-Vitamin D2 600 mg calcium- 200 unit tablet (1 source) Start: 12-26-2024 Calcium Carbonate-Vitamin D2 600 mg calcium- 200 unit tablet Active {tbl} PO December 26, 2024 12:00am cholecalciferol, vitamin D3, (VITAMIN D3 ORAL) (20 sources) take 2000 [IU] by mouth once daily cholecalciferol, vitamin D3, (VITAMIN D3 ORAL) Take 2,000 Units by mouth once daily. Active isopropyl alcohol 0.7 ml/ml medicated pad (12 sources) Start: 09-28-2024 alcohol swabs (ALCOHOL PREP PADS) Indications: 20 weeks gestation of ([facility]) , Supervision of high risk , antepartum ([facility]) , Obesity in ([facility]) , Diet controlled gestational diabetes mellitus (GDM) in second trimester ([facility]) Use as directed to check glucose levels up to seven times daily. 200 each 8 09/28/2024 Active 24 hr metFORMIN hydrochloride 500 mg extended release oral tablet (20 sources) Biguanide Start: 05-26-2024 End: 05-26-2025 take 40-44.9 tablets by mouth twice daily at mealtime metFORMIN ER (GLUCOPHAGE XR) 500 mg 24 hr tablet Indications: PCOS (polycystic ovarian syndrome) , Class 3 severe obesity with serious comorbidity and body mass index (BMI) of 40.0 to 44.9 in adult, unspecified obesity type (HCC) Take 2 tablets by mouth two times a day with meals. 360 tablet 3 05/26/2024 05/26/2025 Active Start: 06-16-2023 End: 09-23-2024 take 40-44.9 tablets by mouth twice daily at mealtime metFORMIN (GLUCOPHAGE) 500 mg tablet Indications: PCOS (polycystic ovarian syndrome) , Class 3 severe obesity with serious comorbidity and body mass index (BMI) of 40.0 to 44.9 in adult, unspecified obesity type (HCC) Take 2 tablets by mouth two times a day with meals. 360 tablet 3 09/24/2023 05/26/2024 Discontinued Comment on above: Take 1 tablet by jeannine th two times a day with meals. metoclopramide 10 mg oral tablet (9 sources) Dopamine-2 Receptor Antagonist Start: 025 take 1 tablet by mouth every eight hours as needed metoclopramide HCl (REGLAN) 10 mg tablet Take 1 tablet by mouth three times a day as needed (headache or nausea). 60 tablet 1 10/26/2024 Active multivitamin with iron (DAILY VITAMINS/IRON ORAL) (5 sources) multivitamin wit h iron (DAILY VITAMINS/IRON ORAL) Take by mouth. Active nitrofurantoin, macrocrystals 25 mg / nitrofurantoin, monohydrate 75 mg oral capsule (1 source) Nitrofuran Antibacterial Start: End: take 1 capsule by mouth twice daily nitrofurantoin monohydrate and macrocrystal (MACROBID) 100 mg capsule Take 1 capsule by mouth two times a day for 7 days. 14 capsule 0 09/17/2023 09/24/2023 Active phentermine hydrochloride 37.5 mg oral tablet (10 sources) Sympathomimetic Amine Anorectic Start: End: take 40-44.9 tablets by mouth once daily before breakfast Phentermine HCl 37.5 mg tablet Indications: NIVIA on CPAP , PCOS (polycystic ovarian syndrome) , Class 3 severe obesity with serious comorbidity and body mass index (BMI) of 40.0 to 44.9 in adult, unspecified obesity type (HCC) Take 1 tablet by mouth daily before breakfast for 90 days. 90 tablet 01/27/2024 04/26/2024 Active Start: 11-04-2023 End: 02-02-2024 take 40-44.9 capsules by mouth once daily before breakfast Phentermine HCl 37.5 mg capsule Indications: NIVIA on CPAP , PCOS (polycystic ovarian syndrome) , Class 3 severe obesity with serious comorbidity and body mass index (BMI) of 40.0 to 44.9 in adult, unspecified obesity type (HCC) Take 1 capsule by mouth daily before breakfast for 90 days. 90 capsule 11/04/2023 01/27/2024 Discontinued Start: 09-17-2023 End: 11-01-2023 take 40-44.9 tablets by mouth once daily before breakfast Phentermine HCl 37.5 mg tablet Indications: NIVIA on CPAP , PCOS (polycystic ovarian syndrome) , Class 3 severe obesity with serious comorbidity and body mass index (BMI) of 40.0 to 44.9 in adult, unspecified obesity type (HCC) Take 1 tablet by mouth daily before breakfast for 45 days. 45 tablet 0 09/17/2023 11/01/2023 Active Start: 08-06-2023 End: 09-20-2023 take 40-44.9 capsules by mouth once daily before breakfast Phentermine HCl 15 mg capsule Indications: NIVIA (obstructive sleep apnea) , Class 3 severe obesity with serious comorbidity and body mass index (BMI) of 40.0 to 44.9 in adult, unspecified obesity type (HCC) Take 1 capsule by mouth daily before breakfast for 45 days. 45 capsule 0 08/06/2023 09/17/2023 Discontinued Pnv No.95-Ferrous Fumarate-Fa () 28 mg iron- 800 mcg tablet (1 source) Start: 12-26-2024 Pnv No.95-Ferr ous Fumarate-Fa () 28 mg iron- 800 mcg tablet Active 1 {tbl} PO DAILY December 26, 2024 12:00am vit37/iron/folic acid (PRENATA ORAL) (20 sources) take 2 capsules by mouth once daily vit37/iron/folic acid (PRENATA ORAL) Take 2 capsules by mouth once daily. Active ubidecarenone 100 mg oral capsule (20 sources) Start: 12-26-2024 Coenzyme Q10 ( Co Q-10) 100 mg capsule Active 100 mg PO DAILY December 26, 2024 12:00am coenzyme Q10 (CO Q-10) 100 mg cap capsule Take 200 mg by mouth once daily. Active vitamin b12 1 mg extended release oral tablet (20 sources) Vitamin B12 take 1 tablet by mouth once daily Cyanocobalamin (VITAMIN B-12) 1,000 mcg TbER Take 1 tablet by mouth once daily. Active Completed/Discontinued Medications Medication Drug Class(es) Dates Sig (Normalized) Sig (Original) apixaban 5 mg oral tablet (3 sources) Factor Xa Inhibitor take 1 tablet by mouth twice daily Eliquis 5 MG Oral Tablet ; 1 two times daily (5 MG) Status: Inactive Blood-Glucose Meter (1 source) Start: 09-28-2024 End: 09-29-2024 Blood-Glucose Meter Indications: 20 weeks gestation of ([facility]) , Supervision of high risk , antepartum ([facility]) , Obesity in ([facility]) , Diet controlled gestational diabetes mellitus (GDM) in second trimester ([facility]) Use as directed to check glucose levels up to seven times daily. 1 each 09/28/2024 09/29/2024 cephalexin 500 mg oral capsule (3 sources) Cephalosporin Antibacterial Start: 06-30-2024 End: 07-05-2024 take 1 capsule by mouth four times daily cephALEXin (KEFLEX) 500 mg capsule Take 1 capsule by mouth four times daily for 5 days. 20 capsule 06/30/2024 07/05/2024 CPAP/BIPAP/OTHER (8 sources) Start: 09-14-2023 End: 06-27-2024 CPAP/BIPAP/OTHER Type .CPAPSettings into a note to see current settings/supplies/ DME information. 1 Each 09/14/2023 06/27/2024 Discontinued Start: 09-14-2023 End: 01-29-2051 CPAP/BIPAP/OTHER Type .CPAPS ettings into a note to see current settings/supplies/DME information. 1 Each 09/14/2023 01/29/2051 Active Start: 09-14-2023 End: 01-29-2051 CPAP/BIPAP/OTHER Type .CPAPS ettings into a note to see current settings/supplies/DME information. 1 Each 0 09/14/2023 01/29/2051 Active dextromethorphan hydrobromide 2 mg/ml / guaiFENesin 20 mg/ml oral solution (3 sources) Uncompetitive P-madpvq-I-aspartate Receptor Antagonist, Sigma-1 Agonist Start: 04-20-2017 End: 07-13-2017 take 5 mL by mouth every four to six hours as needed for cough Guaifenesin-DM 100-10 MG/5ML Oral Syrup ; 5 Milliliter every 4-6 hours as needed for cough for 0 days Quantity: 120 {Milliliter} Refills: 0 Ordered: 13-Jul-2017 Start: 20-Apr-2017 End: 13-Jul-2017 Status: Inactive Comments: Medication taken as needed. Comment on above: Medication taken as needed. Ethinyl Estradiol / norgestimate (3 sources) Progestin, Estrogen Start: 07-09-2015 End: 10-22-2015 take 1 tablet by mouth once daily SPRINTEC 28, 0.25-35MG-MCG (Oral Tablet) ; 1 (one) Tablet daily for 0 days Quantity: 1 {Package} Refills: 2 Ordered: 22-Oct-2015 Chloe Burnett Start: 09-Jul-2015 End: 22-Oct-2015 Status: Inactive ferrous sulfate 325 mg oral tablet (3 sources) take 1 tablet by mouth once daily Iron (Ferrous Sulfate) 325 MG Oral Tablet ; 1 daily (325 MG) Status: Inactive Inulin (13 sources) End: 11-04-2023 inulin (PREBIOTIC FIBER ORAL) Take by mouth. 0 11/04/2023 Discontinued inulin (PREBIOTI C FIBER ORAL) Take by mouth. 0 Active Comment on above: Take by mouth. Lactobacillus acidophilus (14 sources) End: 01-27-2024 Lactobacillus acidophilus (PROBIOTIC ORAL) Take by mouth. 01/27/2024 Discontinued Lactobacillus ac idophilus (PROBIOTIC ORAL) Take by mouth. 0 Active Comment on above: Take by mouth. letrozole 2.5 mg oral tablet (10 sources) Aromatase Inhibitor Start: 2023 End: 2023 letrozole (FEMARA) 2.5 mg tablet Take 1 tablet by mouth once daily. cycle day 3-7 5 tablet 2 04/17/2023 09/14/2023 Discontinued Comment on above: Take 1 tablet by jeannine th once daily. cycle day 3-7 medroxyPROGESTERone acetate 10 mg oral tablet (17 sources) Progestin Start: 2023 End: 2024 take 1 tablet by mouth once daily as needed medroxyPROGESTERone (PROVERA) 10 mg tablet Take 1 tablet by mouth once daily. 10 days a month as needed to start menses 30 tablet 1 06/08/2023 06/27/2024 Discontinued (Other) Start: 04-17-2023 take 1 tablet by jeannine th once daily as needed medroxyPROGESTERone (PROVERA) 10 mg tablet Take 1 tablet by mouth once daily. 10 days a month as needed to start menses 30 tablet 1 04/17/2023 Active Comment on above: Take 1 tablet by jeannine th once daily. 10 days a month as needed to start menses Mestranol / Norethindrone (3 sources) Estrogen Necon (28) Status: Inactive MULTI VITAMIN DAILY (Oral Tablet) (3 sources) take 1 tablet by mouth once daily MULTI VITAMIN DAILY (Oral Tablet) ; 1 (one) daily Status: Inactive MULTIVITAMIN ORAL (17 sources) End: MULTIVITAMIN ORAL Take by mouth. 06/27/2024 Discontinued (Other) MULTIVITAMIN ORA L Take by mouth. Active MULTIVITAMIN ORA L Take by mouth. 0 Active Comment on above: Take by mouth. norethindrone 0.35 mg oral tablet (6 sources) Start: 03-06-2020 End: 12-26-2024 take 1 tablet by mouth once daily Norethindrone (Dian) 0.35 MG tablet Discontinued 0.35 mg PO DAILY March 06, 2020 1:00am December 26, 2024 2:56pm Start: 03-06-2020 End: 03-12-2020 take 1 tablet by mouth once daily Norethindrone Acetate 5 MG tablet Discontinued 5 mg PO DAILY March 06, 2020 1:00am March 12, 2020 12:20pm Prebiotic (3 sources) Start: 03-06-2020 End: 12-26-2024 Prebiotic Discontinued 1 NMA PO DAILY March 06, 2020 1:00am December 26, 2024 2:56pm Start: 03-06-2020 Prebiotic Acti ve 1 NMA PO DAILY March 06, 2020 1:00am Start: 03-06-2020 take 1 capsule by mo uth once daily Prebiotic Active 1 CAP PO DAILY March 06, 2020 1:00am progesterone 200 mg oral capsule (3 sources) Progesterone take 1 capsule by mouth once daily Progesterone Micronized 200 MG Oral Capsule ; 1 daily (200 MG) Status: Inactive progesterone vaginal suppository 200 mg (CPD) (13 sources) End: 10-26-2024 progesterone vaginal suppository 200 mg (CPD) Use 200 mg vaginally daily at bedtime. Unwrap and insert as directed. 10/26/2024 Discontinued progesterone vag inal suppository 200 mg (CPD) Use 200 mg vaginally daily at bedtime. Unwrap and insert as directed. Active sulfamethoxazole 800 mg / trimethoprim 160 mg oral tablet (3 sources) Dihydrofolate Reductase Inhibitor Antibacterial, Sulfonamide Antimicrobial Start: 01-23-2023 End: 01-28-2023 Bactrim DS 800 mg-160 mg tablet ; 1 (one) Tablet two times daily for 5 days Quantity: 10 {Tablet} Refills: 0 Ordered: 30-Jan-2023 AYO BOGGS Start: 23-Jan-2023 End: 28-Jan-2023 Status: Inactive triamcinolone acetonide 5 mg/ml topical cream (3 sources) Corticosteroid Start: 04-20-2020 End: 11-14-2020 Triamcinolone Acetonide 0.5 % External Cream ; 1 (one) Application Application two times daily for 0 days Quantity: 1 {Tube} Refills: 0 Ordered: 14-Nov-2020 Start: 20-Apr-2020 End: 14-Nov-2020 Status: Inactive Problems Active Problems Problem Classification Problem Date Documented Date Episodic/Chronic Administrative/social admission (16 sources) Patient encounter status; Translations: [Dietary counseling and surveillance] 06-30-2023 Episodic Allergic reactions (9 sources) Hand eczema; Translations: [Dermatitis, unspecified] 12-06-2018 Episodic Deficiency and other anemia (3 sources) Anemia; Translations: [Anemia, unspecified] 05-30-2011 Episodic Female infertility (20 sources) Oligo-ovulation; Translations: [Female infertility associated with anovulation] Onset: 02-05-2024 04-17-2023 Chronic Headache; including migraine (2 sources) Migraine; Translations: [Migraine, unspecified, not intractable, without status migrainosus] 10-21-2024 Chronic Headache; including migraine (1 source) Headache; including migraine; Translations: [ headache in second trimester (HCC)] Onset: 10-26-2024 Immunizations and screening for infectious disease (9 sources) Needs influenza immunization; Translations: [Encounter for immunization] 02-03-2018 Episodic Malaise and fatigue (12 sources) Malaise and fatigue; Translations: [Other malaise] 06-30-2023 Episodic Menopausal disorders (20 sources) Other primary ovarian failure; 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] Onset: 02-03-2024 02-05-2024 Chronic Menstrual disorders (5 sources) Menstrual period late; Translations: [Irregular menstruation, unspecified] Onset: 05-22-2023 06-04-2023 Chronic Other circulatory disease (1 source) Elevated blood-pressure reading, without diagnosis of hypertension; Translations: [Elevated BP without diagnosis of hypertension] Onset: 01-27-2025 Episodic Other complications of (20 sources) Obesity; Translations: [Obesity complicating , unspecified trimester] Onset: 09-06-2024 08-09-2024 Chronic Other complications of (8 sources) Anemia in mother complicating , childbirth AND/OR puerperium; Translations: [Anemia complicating , third trimester] Onset: 11-27-2024 12-06-2024 Chronic Other complications of (1 source) Obesity complicating , unspecified trimester; Translations: [Obesity in (HCC)] Onset: 10-26-2024 Chronic Other complications of (1 source) Anemia complicating , third trimester; Translations: [Antepartum anemia complicating in third trimester ([facility])] Onset: 11-27-2024 Chronic Other complications of (1 source) Urinary tract infection in ; Translations: [Unspecified infection of urinary tract in , first trimester] 07-14-2024 Episodic Other complications of (1 source) Unspecified infection of urinary tract in , first trimester; Translations: [Recurrent urinary tract infection affecting in first trimester ([facility])] Onset: 07-19-2024 Episodic Other complications of (2 sources) Headache; Translations: [Other specified related conditions, second trimester] 10-21-2024 Episodic Other complications of (1 source) Supervision of high risk , unspecified, unspecified trimester; Translations: [Supervision of high risk , antepartum ([facility])] Onset: 01-19-2025 Episodic Other congenital anomalies (1 source) Chromosomal abnormality, unspecified; Translations: [Nonspecific abnormal findings on chromosomal analysis] Onset: 02-03-2024 Chronic Other endocrine disorders (20 sources) Polycystic ovary syndrome; Translations: [Polycystic ovarian syndrome] Onset: 06-16-2023 04-17-2023 Chronic Other endocrine disorders (1 source) Polycystic ovarian syndrome; Translations: [PCOS (polycystic ovarian syndrome)] Onset: 06-16-2023 Chronic Other female genital disorders (12 sources) Abnormal uterine bleeding; Translations: [Other specified abnormal uterine and vaginal bleeding] 02-14-2020 Chronic Other female genital disorders (6 sources) Vaginal bleeding; Translations: [Abnormal uterine and vaginal bleeding, unspecified] 10-22-2015 Chronic Other non-traumatic joint disorders (9 sources) Pain in left knee; Translations: [Pain in joint, lower leg] 11-16-2017 Episodic Other nutritional; endocrine; and metabolic disorders (1 source) Morbid obesity; Translations: [Morbid (severe) obesity due to excess calories] 04-17-2023 Chronic Other nutritional; endocrine; and metabolic disorders (20 sources) Body mass index 30+ - obesity; Translations: [Body mass index (BMI) 35.0-35.9, adult] Onset: 07-12-2017 06-27-2024 Chronic Other nutritional; endocrine; and metabolic disorders (1 source) Morbid (severe) obesity due to excess calories; Translations: [Class 3 severe obesity with serious comorbidity and body mass index (BMI) of 40.0 to 44.9 in adult, unspecified obesity type (HCC)] Onset: 09-16-2023 Chronic Other nutritional; endocrine; and metabolic disorders (1 source) Body mass index (BMI) 40.0-44.9, adult; Translations: [Class 3 severe obesity with serious comorbidity and body mass index (BMI) of 40.0 to 44.9 in adult, unspecified obesity type (HCC)] Onset: 09-16-2023 Chronic Other screening for suspected conditions (not mental disorders or infectious disease) (4 sources) Cancer cervix screening status; Translations: [Encounter for screening for malignant neoplasm of cervix] Onset: 02-03-2024 08-05-2023 Episodic Other upper respiratory infections (4 sources) Viral upper respiratory tract infection; Translations: [Acute upper respiratory infection, unspecified] Episodic Pulmonary heart disease (20 sources) Pulmonary embolism; Translations: [Other pulmonary embolism without acute cor pulmonale] Onset: 04-13-2017 06-27-2024 Episodic Comment on above: associated with leg fracture. Residual codes; unclassified (20 sources) Obstructive sleep apnea syndrome; Translations: [Obstructive sleep apnea (adult) (pediatric)] Onset: 06-16-2023 06-16-2023 Chronic Residual codes; unclassified (3 sources) Daytime somnolence; Translations: [Other hypersomnia] 06-30-2023 Chronic Residual codes; unclassified (1 source) Obstructive sleep apnea (adult) (pediatric); Translations: [NIVIA on CPAP] Onset: 11-03-2023 Chronic Residual codes; unclassified (1 source) Insomnia; Translations: [Insomnia, unspecified] 09-14-2023 Episodic Residual codes; unclassified (1 source) Immunization not carried out because of patient refusal; Translations: [COVID-19 vaccine series declined] Onset: 02-05-2024 Episodic Residual codes; unclassified (4 sources) Gestation period, 7 weeks; Translations: [Less than 8 weeks gestation of ] 06-27-2024 Episodic Residual codes; unclassified (2 sources) Gestation period, 13 weeks; Translations: [13 weeks gestation of ] 08-09-2024 Episodic Residual codes; unclassified (1 source) Gestation period, 17 weeks; Translations: [17 weeks gestation of ] 09-06-2024 Episodic Residual codes; unclassified (3 sources) Gestation period, 20 weeks; Translations: [20 weeks gestation of ] 10-04-2024 Episodic Residual codes; unclassified (1 source) Gestation period, 23 weeks; Translations: [23 weeks gestation of ] 10-21-2024 Episodic Residual codes; unclassified (6 sources) Overweight; Translations: [Other specified conditions influencing health status] 11-14-2020 Episodic Residual codes; unclassified (1 source) Gestation period, 24 weeks; Translations: [24 weeks gestation of ] 10-26-2024 Episodic Residual codes; unclassified (1 source) Gestation period, 28 weeks; Translations: [28 weeks gestation of ] 11-25-2024 Episodic Residual codes; unclassified (1 source) Gestation period, 30 weeks; Translations: [30 weeks gestation of ] 12-06-2024 Episodic Residual codes; unclassified (2 sources) Gestation period, 32 weeks; Translations: [32 weeks gestation of ] 12-22-2024 Episodic Residual codes; unclassified (1 source) 37 weeks gestation of ; Translations: [37 weeks gestation of (HCC)] Onset: 01-27-2025 Episodic Residual codes; unclassified (1 source) 36 weeks gestation of ; Translations: [36 weeks gestation of (HCC)] Onset: 01-19-2025 Episodic Residual codes; unclassified (1 source) 34 weeks gestation of ; Translations: [34 weeks gestation of (HCC)] Onset: 01-04-2025 Episodic Residual codes; unclassified (1 source) 32 weeks gestation of ; Translations: [32 weeks gestation of (HCC)] Onset: 12-22-2024 Episodic Residual codes; unclassified (1 source) 30 weeks gestation of ; Translations: [30 weeks gestation of (HCC)] Onset: 12-06-2024 Episodic Residual codes; unclassified (1 source) 28 weeks gestation of ; Translations: [28 weeks gestation of (HCC)] Onset: 11-23-2024 Episodic Sprains and strains (3 sources) Sprain of left ankle; Translations: [Sprain of unspecified ligament of left ankle, initial encounter] 07-14-2016 Episodic Unclassified (1 source) COVID-19 vaccine series declined; Translations: [COVID-19 vaccine series declined] Onset: 02-05-2024 Unclassified (20 sources) [facility] - COMMON Onset: 06-23-2024 06-23-2024 Unclassified (3 sources) LAB DRAW - The labs drawn today include: CBC. The lab was ordered by Harjit BryantGYNJuanjo 02-03-2020 Unclassified (3 sources) Knee Pain - The knee pain is characterized as a sharp stabbing. The knee pain is described as being located in the posterior knee (L side). The knee pain is aggravated by physical activity and sports activities. Note for Knee Pain: States tore ACL and was repaired [address] Lee. Has been doing PT for both ankle and knee. 11-16-2017 Unclassified (3 sources) LAB DRAW - The labs drawn today include: other: hgb and hct.. The lab was drawn from the left antecubital vein. The lab was ordered by Dr. dr. davion rodriguez. fax #: [phone] and Address: [facility]. 05-30-2011 Unclassified (1 source) Other specified diseases and conditions complicating ; Translations: [Other specified diseases and conditions complicating ] Onset: 01-09-2025 Unclassified (1 source) Class 3 severe obesity with serious comorbidity and body mass index (BMI) of 40.0 to 44.9 in adult, unspecified obesity type (HCC); Translations: [Class 3 severe obesity with serious comorbidity and body mass index (BMI) of 40.0 to 44.9 in adult, unspecified obesity type (HCC)] Onset: 09-16-2023 Urinary tract infections (7 sources) Urinary tract infection, site not specified; Translations: [Urinary tract infectious disease] Onset: 05-24-2023 01-23-2023 Episodic Past or Other Problems Problem Classification Problem Date Documented Date Episodic/Chronic Contraceptive and procreative management (20 sources) Encounter for fertility preservation procedure; Translations: [H/O: malignant neoplasm] Onset: 02-03-2024 02-05-2024 Episodic Diabetes mellitus without complication (12 sources) High hemoglobin A1c level; Translations: [Other abnormal glucose] Onset: 10-26-2024 10-26-2024 Episodic Diabetes or abnormal glucose tolerance complicating ; childbirth; or the puerperium (20 sources) Gestational diabetes mellitus; Translations: [Gestational diabetes mellitus in , diet controlled] Onset: 10-04-2024 10-04-2024 Episodic Genitourinary symptoms and ill-defined conditions (3 sources) Urinary symptoms ; Translations: [Unspecified symptoms and signs involving the genitourinary system] Onset: 05-24-2023 09-17-2023 Episodic Other complications of (20 sources) High risk ; Translations: [Supervision of high risk , unspecified, unspecified trimester] Onset: 06-27-2024 06-27-2024 Episodic Other complications of (1 source) Other specified related conditions, second trimester; Translations: [ headache in second trimester (HCC)] Onset: 10-26-2024 Episodic Other nervous system disorders (20 sources) Circadian rhythm sleep disorder of shift work type; Translations: [Circadian rhythm sleep disorder, shift work type] Onset: 06-16-2023 Resolved: 09-14-2023 06-16-2023 Chronic Other nutritional; endocrine; and metabolic disorders (20 sources) Severe obesity; Translations: [Morbid (severe) obesity due to excess calories] Onset: 07-15-2023 Resolved: 09-06-2024 06-30-2023 Chronic Other nutritional; endocrine; and metabolic disorders (20 sources) Obese class II; Translations: [Obesity, unspecified] Onset: 09-14-2023 Resolved: 09-06-2024 09-14-2023 Chronic Other and delivery including normal (10 sources) First trimester ; Translations: [ with uncertain dates] Onset: 06-27-2024 06-27-2024 Episodic Residual codes; unclassified (2 sources) Less than 8 weeks gestation of ; Translations: [7 weeks gestation of (HCC)] Onset: 07-19-2024 Episodic Residual codes; unclassified (1 source) 24 weeks gestation of ; Translations: [24 weeks gestation of (HCC)] Onset: 10-26-2024 Episodic Residual codes; unclassified (1 source) 23 weeks gestation of ; Translations: [23 weeks gestation of (HCC)] Onset: 10-21-2024 Episodic Residual codes; unclassified (1 source) 20 weeks gestation of ; Translations: [20 weeks gestation of (HCC)] Onset: 09-28-2024 Episodic Residual codes; unclassified (1 source) 17 weeks gestation of ; Translations: [17 weeks gestation of (HCC)] Onset: 09-06-2024 Episodic Residual codes; unclassified (1 source) 13 weeks gestation of ; Translations: [13 weeks gestation of (HCC)] Onset: 08-09-2024 Episodic Unclassified (1 source) 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[facility] Onset: 12-18-2021 Unclassified (3 sources) Urinary Tract Problems - The urinary symptoms are described as painful urination, frequency, burning and nocturia. The symptoms have been occurring for 3 days. The urine is described as yellow (cloudy). There has been no associated fever. 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 11-14-2020 Unclassified (3 sources) Physical examination - Her last menstrual period date was 09/03/2020, regular. Note for Physical examination: Pt. is changing jobs and would like a physical for pre-employment. Pt. was diagnosed with PCOS and has lost weight and started taking care of herself. Pt. 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 09-17-2020 Unclassified (3 sources) Immunization 02-03-2018 Unclassified (3 sources) Leg pain - The leg pain has been occurring for 4 months. The course has been without change. The leg pain is described as a sharp stabbing. Note for Leg pain: Pt. has history of DVT and broken left fibula 10-19-2017 Unclassified (3 sources) [ADDITIONAL REASON] Fatigue - Symptoms include fatigue. Onset was 2 week(s) ago. Note for Fatigue: Pt. is wondering if progesterone causes fatigue. 10-19-2017 Unclassified (3 sources) Chest pain - The onset of the chest pain has been acute and has been occurring in an intermittent pattern for 4 weeks. The chest pain is described as being located in the substernal area. The chest pain does not radiate. There are no precipitating factors. Note for Chest pain: felt the chest pain since in the hospital 4-5 weeks ago and they said it would get better in 2-3 weeks. 08-10-2017 Unclassified (3 sources) Transition into care - The patient is transitioning into care from a hospital ([facility] 07/05/17 - 07/08/17 for PE.) and a summary of care was reviewed. 07-13-2017 Unclassified (3 sources) cough - The onset of the cough has been acute and has been occurring in a persistent pattern for 3 days. The cough is characterized as productive of mucoid sputum. 04-20-2017 Unclassified (3 sources) Vaginal bleeding - The bleeding has been occuring in an irregular pattern. Menses: Last menstrual period date: (08/10/2016). Note for Vaginal bleeding: Similar symptoms 06/2015, started on BCP. No longer taking and menses are irregular.. 08-19-2016 Unclassified (3 sources) Ankle Pain - This condition occurred following a specific injury. The patient sustained an injury to the left ankle. The injury resulted from a fall. Symptoms include ankle pain, swelling, decreased range of motion and difficulty bearing weight. 07-14-2016 Unclassified (3 sources) !Patient notification of lab results 1 - Flakita. Note for !Patient notification of lab results 1: Laura, everything looked good on your ultrasound. So as long as your bleeding stays regular then there is nothing to worry about.Let us know if you have any questions. 10-26-2015 Unclassified (3 sources) Unspecified Diagnosis 10-22-2015 Unclassified (3 sources) Vaginal bleeding - The bleeding has been occuring in an irregular pattern. Note for Vaginal bleeding: Has not had mensrual period since off med, due to start at this time 10-22-2015 Unclassified (3 sources) !Patient notification of lab results 1 - Flakita. Note for !Patient notification of lab results 1: Laura, not suprisingly, you do have mild anemia. I don't think you need to add any iron to your diet though as long as your bleeding stops.If your bleeding hasn't completely stopped by now please let me know. 07-10-2015 Unclassified (3 sources) Vaginal bleeding - The bleeding has been occuring for 4 weeks. Note for Vaginal bleeding: Did not have a period for 3 months. Now has bled for 4 weeks - the first 2 weeks was heavy with clots and the last 2 weeks was light. Has had issues before and was on the pill. See notes from [address] Rodriguez on 201007-09-2015 Unclassified (3 sources) Immunization - Adacel was given. An immunization information sheet was provided. 08-10-2013 Results Test Name Value Interpretation Reference Range Facil ity SVETLANANon 01-30-2025 CNPN Telephone (OBGYWM) ---- LAURA CASTELLANOS ([id number]) [address] [facility] Date Time Provider Department 01/30/25 ASHLEY MISHRA During your visit today, we recorded the following information about you: Narciso Dunn RN 01/30/2025 10:27 AM Signed Ashley Mishra APRN.CNM to [facility] [employer] Pool 01/30/25 8:31 AM Result Note Labs normal. Lab did not get her urine. Can you please call patient and see how she is feeling. Thanks, Ashley Mishra APRN.CNM COMPLETE BLOOD COUNT AND DIFFERENTIAL; URIC ACID; COMPREHENSIVE METABOLIC PANEL Narciso Dunn RN 01/30/2025 10:27 AM Signed Pt notified. Pt states overall she feels pretty good today. States she just took her BP AND 137/86. BGT 96 this AM. Active movement. Pt has no concerns at this time and advised to call the office if she does have any concerns with decreased FM, high BP/or blood glucose levels. Pt voiced understanding. Do you want Pt to return to lab to have urine completed? Please advise. NIKHIL Abreu Jessica, APRN.CNM 01/30/2025 11:37 AM Signed She has induction tomorrow so not at this time unless BP 140/90. Thanks, Ashley Mishra APRN.CNM Allergies As of Date: 01/30/2025 Noted Allergy Reaction CHLORHEXIDINE 05/24/2023 9 - Itching LATEX 06/22/2024 2 - Rash Date Reviewed: 01/27/2025 Reviewed by: Alison Heard MA - Fully Assessed Reason for Visit: Patient Update [1234] Prescriptions as of 01/30/2025 - FERROUS SULFATE DRIED ORAL Take by mouth once daily. - Breast Pump Use as directed - metoclopramide HCl (REGLAN) 10 mg tablet Take 1 tablet by mouth three times a day as needed (headache or nausea). - blood sugar diagnostic test strip Use as directed to check glucose levels up to seven times daily. - Lancets Use as directed to check glucose levels up to seven times daily. - alcohol swabs (ALCOHOL PREP PADS) Use as directed to check glucose levels up to seven times daily. - aspirin, enteric coated (ECOTRIN LOW STRENGTH) 81 mg EC tablet Take 1 tablet by mouth once daily. - vit37/iron/folic acid (PRENATA ORAL) Take 2 capsules by mouth once daily. - coenzyme Q10 (CO Q-10) 100 mg cap capsule Take 200 mg by mouth once daily. - cholecalciferol, vitamin D3, (VITAMIN D3 ORAL) Take 2,000 Units by mouth once daily. - calcium carbonate/vitamin D3 (CALCIUM 600 + D ORAL) Take 1 capsule by mouth once daily. 200 international unit(s) of Vitamin D - Cyanocobalamin (VITAMIN B-12) 1,000 mcg TbER Take 1 tablet by mouth once daily. - metFORMIN ER (GLUCOPHAGE XR) 500 mg 24 hr tablet Take 2 tablets by mouth two times a day with meals. 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] 02/05/2024 History of pulmonary embolism [Z86.711] 2018 BMI 35.0-35.9,adult [Z68.35] 06/27/2024 Supervision of high risk , antepartum *06/27/2024 Obesity in (HCC) [O99.210] 09/06/2024 Diet controlled gestational diabetes mellitus (*10/04/2024 Elevated hemoglobin A1c [R73.09] 10/26/2024 Antepartum anemia complicating in thi*11/27/2024 Encounter Status:Closed by NARCISO DUNN on 01/30/25 Normal [facility] CBC W Auto Differential pane l (Bld)on 01-27-2025 Basophils (Bld) [#/Vol] 10*3/uL Normal <0.11 C [facility] Comment on above: Order Comment: Speci men Type: BLOOD SPECIMEN Ordering Facility: [facility] Address: [address] [place] [address] Performed By: #### 7 3752-8, 88929-7, 6-4 #### [facility] CLIA [id number] [address] [place] [address] [place] Basophils/100 WBC (Bld) 0.2 % Normal C [facility] Comment on above: Order Comment: Speci men Type: BLOOD SPECIMEN Ordering Facility: [facility] Address: [address] [place] [address] Performed By: #### 7 3752-8, 33058-9, 6-4 #### [facility] CLIA [id number] [address] [place] [address] [place] Differential cell count method Nom (Bld) Auto Normal [facility] Comment on above: Order Comment: Speci men Type: BLOOD SPECIMEN Ordering Facility: [facility] Address: [address] [place] [address] Performed By: #### 7 3752-8, 85392-4, 6-4 #### [facility] CLIA [id number] [address] [place] [address] [place] Eosinophils (Bld) [#/Vol] 0.05 10*3/uL Normal <0.46 [facility] Comment on above: Order Comment: Speci men Type: BLOOD SPECIMEN Ordering Facility: [facility] Address: [address] [place] [address] Performed By: #### 7 3752-8, 73715-6, 2275-4 #### [facility] CLIA [id number] [address] [place] [address] [place] Eosinophils/100 WBC (Bld) 0.4 % Normal [facility] Comment on above: Order Comment: Speci men Type: BLOOD SPECIMEN Ordering Facility: [facility] Address: [address] [place] [address] Performed By: #### 7 3752-8, 94322-1, 2275-4 #### [facility] CLIA [id number] [address] [place] [address] [place] Erythrocyte distribution width (RBC) [Ratio] 14.2 % Normal 11.5-15.0 [facility] Comment on above: Order Comment: Speci men Type: BLOOD SPECIMEN Ordering Facility: [facility] Address: [address] [place] [address] Performed By: #### 7 3752-8, 55037-7, 4 #### [facility] CLIA [id number] [address] [place] [address] [place] Hematocrit (Bld) [Volume fraction] 36.1 % Normal 36.0-46.0 [facility] Comment on above: Order Comment: Speci men Type: BLOOD SPECIMEN Ordering Facility: [facility] Address: [address] [place] [address] Performed By: #### 7 3752-8, 94464-0, 2275-4 #### [facility] CLIA [id number] [address] [place] [address] [place] Hemoglobin (Bld) [Mass/Vol] 11.9 g/dL Normal 11.5-15.5 [facility] Comment on above: Order Comment: Speci men Type: BLOOD SPECIMEN Ordering Facility: [facility] Address: [address] [place] [address] Performed By: #### 7 3752-8, 05755-8, 4 #### [facility] CLIA [id number] [address] [place] [address] [place] Immature granulocytes (Bld) [#/Vol] 0.07 10*3/uL Normal <0.10 [facility] Comment on above: Order Comment: Speci men Type: BLOOD SPECIMEN Ordering Facility: [facility] Address: [address] [place] [address] Performed By: #### 7 3752-8, 59043-6, 2275-07 #### [facility] CLIA [id number] [address] [place] [address] [place] Immature granulocytes/100 WBC (Bld) 0.6 % Normal [facility] Comment on above: Order Comment: Speci men Type: BLOOD SPECIMEN Ordering Facility: [facility] Address: [address] [place] [address] Performed By: #### 7 3752-8, 66128-6, 2275-07 #### [facility] CLIA [id number] [address] [place] [address] [place] Lymphocytes (Bld) [#/Vol] 1.61 10*3/uL Normal 1.00-4.00 [facility] Comment on above: Order Comment: Speci men Type: BLOOD SPECIMEN Ordering Facility: [facility] Address: [address] [place] [address] Performed By: #### 7 3752-8, 47939-0, 2275-4 #### [facility] CLIA [id number] [address] [place] [address] [place] Lymphocytes/100 WBC (Bld) 13.9 % Normal [facility] Comment on above: Order Comment: Speci men Type: BLOOD SPECIMEN Ordering Facility: [facility] Address: [address] [place] [address] Performed By: #### 7 3752-8, 78528-0, 2275-07 #### [facility] CLIA [id number] [address] [place] [address] [place] MCH (RBC) [Entitic mass] 29.1 pg Normal 26.0-34.0 [facility] Comment on above: Order Comment: Speci men Type: BLOOD SPECIMEN Ordering Facility: [facility] Address: [address] [place] [address] Performed By: #### 7 3752-8, 15592-0, 2275-07 #### [facility] CLIA [id number] [address] [place] [address] [place] MCHC (RBC) [Mass/Vol] 33.0 g/dL Normal 30.5-36.0 [facility] Comment on above: Order Comment: Speci men Type: BLOOD SPECIMEN Ordering Facility: [facility] Address: [address] [place] [address] Performed By: #### 7 3752-8, 67998-6, 2275-07 #### [facility] CLIA [id number] [address] [place], [place] [address] [place] MCV (RBC) [Entitic vol] 88.3 fL Normal 80.0-100.0 C [facility] Comment on above: Order Comment: Speci men Type: BLOOD SPECIMEN Ordering Facility: [facility] Address: [address] [place] [address] Performed By: #### 7 3752-8, 64916-4, 4 #### [facility] CLIA [id number] [address] [place] [address] [place] Monocytes (Bld) [#/Vol] 0.87 10*3/uL High <0.87 [facility] Comment on above: Order Comment: Speci men Type: BLOOD SPECIMEN Ordering Facility: [facility] Address: [address] [place] [address] Performed By: #### 7 3752-8, 32686-7, 4 #### [facility] CLIA [id number] [address] [place] [address] [place] Monocytes/100 WBC (Bld) 7.5 % Normal [facility] Comment on above: Order Comment: Speci men Type: BLOOD SPECIMEN Ordering Facility: [facility] Address: [address] [place] [address] Performed By: #### 7 3752-8, 93199-5, 4 #### [facility] CLIA [id number] [address] [place] [address] [place] Neutrophils (Bld) [#/Vol] 8.94 10*3/uL High 1.45-7.50 [facility] Comment on above: Order Comment: Speci men Type: BLOOD SPECIMEN Ordering Facility: [facility] Address: [address] [place] [address] Performed By: #### 7 3752-8, 20218-1, 2275-07 #### [facility] CLIA [id number] [address] [place] [address] [place] Neutrophils/100 WBC (Bld) 77.4 % Normal [facility] Comment on above: Order Comment: Speci men Type: BLOOD SPECIMEN Ordering Facility: [facility] Address: [address] [place] [address] Performed By: #### 7 3752-8, 49370-7, 2275-4 #### [facility] CLIA [id number] [address] [place] [address] [place] Nucleated RBC (Bld) [#/Vol] 10*3/uL Normal <0.01 [facility] Comment on above: Order Comment: Speci men Type: BLOOD SPECIMEN Ordering Facility: [facility] Address: [address] [place], [place] [id number] Performed By: #### 7 3752-8, 44149-0, 2275-4 #### [facility] CLIA [id number] [address] [place], [place] [address] [place] Nucleated RBC/100 WBC (Bld) [Ratio] 0.0 /100 WBC Normal [facility] Comment on above: Order Comment: Speci men Type: BLOOD SPECIMEN Ordering Facility: [facility] Address: [address] [place] [address] Performed By: #### 7 3752-8, 65791-0, 2275-4 #### [facility] CLIA [id number] [address] [place], [place] [address] [place] Platelet mean volume (Bld) [Entitic vol] 12.3 fL Normal 9.0-12.7 [facility] Comment on above: Order Comment: Speci men Type: BLOOD SPECIMEN Ordering Facility: [facility] Address: [address] [place] [address] Performed By: #### 7 3752-8, 27037-4, 2275- #### [facility] CLIA [id number] [address] [place], [place] [address] [place] Platelets (Bld) [#/Vol] 290 10*3/uL Normal 150-400 [facility] Comment on above: Order Comment: Speci men Type: BLOOD SPECIMEN Ordering Facility: [facility] Address: [address] [place] [address] Performed By: #### 7 3752-8, 72541-8, 2275-4 #### [facility] CLIA [id number] [address] [place], [place] [address] [place] RBC (Bld) [#/Vol] 4.09 10*6/uL Normal 3.90-5.20 [facility] Comment on above: Order Comment: Speci men Type: BLOOD SPECIMEN Ordering Facility: [facility] Address: [address] [place] [address] Performed By: #### 7 3752-8, 99765-6, 2276-4 #### [facility] CLIA [id number] [address] [place] [address] [place] WBC (Bld) [#/Vol] 11.56 10*3/uL High 3.70-11.00 [facility] Comment on above: Order Comment: Speci men Type: BLOOD SPECIMEN Ordering Facility: [facility] Address: [address] [place] [address] Performed By: #### 7 3752-8, 28185-9, 6-4 #### [facility] CLIA [id number] [address] [place] [address] [place] Comprehensive metabolic 2000 panelon 01-27-2025 Albumin [Mass/Vol] 3.8 g/dL Low 3.9-4.9 [facility] Comment on above: Order Comment: Speci men Type: BLOOD SPECIMEN Ordering Facility: [facility] Address: [address] [place] [address] Performed By: #### 7 3752-8, 07946-8, 6-4 #### [facility] CLIA [id number] [address] [place] [address] [place] ALP [Catalytic activity/Vol] 94 U/L Normal 34-123 [facility] Comment on above: Order Comment: Speci men Type: BLOOD SPECIMEN Ordering Facility: [facility] Address: [address] [place] [address] Performed By: #### 7 3752-8, 35298-1, 6-4 #### [facility] CLIA [id number] [address] [place] [address] [place] ALT [Catalytic activity/Vol] 26 U/L Normal 7-38 [facility] Comment on above: Order Comment: Speci men Type: BLOOD SPECIMEN Ordering Facility: [facility] Address: [address] [place] [address] Performed By: #### 7 3752-8, 44384-7, 6-4 #### [facility] CLIA [id number] [address] [place] [address] [place] Anion gap [Moles/Vol] 15 mmol/L Normal 8-15 [facility] Comment on above: Order Comment: Speci men Type: BLOOD SPECIMEN Ordering Facility: [facility] Address: [address] [place] [address] Performed By: #### 7 3752-8, 75186-8, 2275-4 #### [facility] CLIA [id number] [address] [place] [address] [place] AST [Catalytic activity/Vol] 16 U/L Normal 13-35 [facility] Comment on above: Order Comment: Speci men Type: BLOOD SPECIMEN Ordering Facility: [facility] Address: [address] [place] [address] Performed By: #### 7 3752-8, 88521-1, 4 #### [facility] CLIA [id number] [address] [place] [address] [place] Bilirubin [Mass/Vol] 0.2 mg/dL Normal 0.2-1.3 [facility] Comment on above: Order Comment: Speci men Type: BLOOD SPECIMEN Ordering Facility: [facility] Address: [address] [place] [address] Performed By: #### 7 3752-8, 99636-1, 2275-4 #### [facility] CLIA [id number] [address] [place] [address] [place] Calcium [Mass/Vol] 9.7 mg/dL Normal 8.5-10.2 [facility] Comment on above: Order Comment: Speci men Type: BLOOD SPECIMEN Ordering Facility: [facility] Address: [address] [place] [address] Performed By: #### 7 3752-8, 18761-3, 4 #### [facility] CLIA [id number] [address] [place] [address] [place] Chloride [Moles/Vol] 104 mmol/L Normal 98-107 [facility] Comment on above: Order Comment: Speci men Type: BLOOD SPECIMEN Ordering Facility: [facility] Address: [address] [place] [address] Performed By: #### 7 3752-8, 23702-5, 2275-07 #### [facility] CLIA [id number] [address] [place] [address] [place] CO2 [Moles/Vol] 18 mmol/L Low 22-30 [facility] Comment on above: Order Comment: Speci men Type: BLOOD SPECIMEN Ordering Facility: [facility] Address: [address] [place] [address] Performed By: #### 7 3752-8, 32827-6, 2275-07 #### [facility] CLIA [id number] [address] [place] [address] [place] Creatinine [Mass/Vol] 0.53 mg/dL Low 0.58-0.96 [facility] Comment on above: Order Comment: Speci men Type: BLOOD SPECIMEN Ordering Facility: [facility] Address: [address] [place] [address] Performed By: #### 7 3752-8, 66031-2, 4 #### [facility] CLIA [id number] [address] [place], [place] [id number] [place] eGFRcr SerPlBld CKD-EPI 2020 127 mL/min/1.73m??? Normal >=60 [facility] Comment on above: Order Comment: Romelia sanchez Type: BLOOD SPECIMEN Ordering Facility: [facility] Address: [address] [place] [address] Result Comment: Katerine mated Glomerular Filtration Rate (eGFR) is calculated using the 2020 CKD-EPI creatinine equation. This equation utilizes serum creatinine, sex, and age as parameters. The creatinine assay has traceable calibration to isotope dilution-mass spectrometry. Refer to KDIGO guidelines for clinical interpretation. In patients with unstable renal function, e.g. those with acute kidney injury, the eGFR may not accurately reflect actual GFR. Performed By: #### 7 3752-8, 63443-1, 2276-4 #### [facility] CLIA [id number] [address] [place] [address] [place] Glucose [Mass/Vol] 83 mg/dL Normal 74-99 [facility] Comment on above: Order Comment: Romelia sanchez Type: BLOOD SPECIMEN Ordering Facility: [facility] Address: [address] [place] [address] Result Comment: The [place] Diabetes [employer] (ADA) provides guidance for cutoff values for fasting glucose and random glucose. The ADA defines fasting as no caloric intake for at least 8 hours. Fasting plasma glucose results between 100 to 125 mg/dL indicate increased risk for diabetes (prediabetes). Fasting plasma glucose results greater than or equal to 126 mg/dL meet the criteria for diagnosis of diabetes. In the absence of unequivocal hyperglycemia, results should be confirmed by repeat testing. In a patient with classic symptoms of hyperglycemia or hyperglycemic crisis, random plasma glucose results greater than or equal to 200 mg/dL meet the criteria for diagnosis of diabetes. Reference: Standards of Medical Care in Diabetes 2016, [place] [employer]. Diabetes Care. 2016.39(Suppl 1). Performed By: #### 7 3752-8, 11646-2, 6-4 #### [facility] CLIA [id number] [address] [place] [address] [place] Potassium [Moles/Vol] 3.9 mmol/L Normal 3.7-5.1 [facility] Comment on above: Order Comment: Speci men Type: BLOOD SPECIMEN Ordering Facility: [facility] Address: [address] [place] [address] Performed By: #### 7 3752-8, 20576-5, 6-4 #### [facility] CLIA [id number] [address] [place] [address] [place] Protein [Mass/Vol] 7.1 g/dL Normal 6.3-8.0 [facility] Comment on above: Order Comment: Speci men Type: BLOOD SPECIMEN Ordering Facility: [facility] Address: [address] [place] [address] Performed By: #### 7 3752-8, 33178-8, 6-4 #### [facility] CLIA [id number] [address] [place] [address] [place] Sodium [Moles/Vol] 137 mmol/L Normal 136-144 [facility] Comment on above: Order Comment: Speci men Type: BLOOD SPECIMEN Ordering Facility: [facility] Address: [address] [place] [address] Performed By: #### 7 3752-8, 83730-4, 6-4 #### [facility] CLIA [id number] [address] [place] [address] [place] Urea nitrogen [Mass/Vol] 13 mg/dL Normal 7-21 [facility] Comment on above: Order Comment: Speci men Type: BLOOD SPECIMEN Ordering Facility: [facility] Address: [address] [place] [address] Performed By: #### 7 3752-8, 58564-8, 6-4 #### [facility] CLIA [id number] [address] [place] [address] [place] Urate SerPl-mCncon 17- 5 Urate [Mass/Vol] 5.5 mg/dL Normal 2.5-6.6 [facility] Comment on above: Order Comment: Speci men Type: BLOOD SPECIMEN Ordering Facility: [facility] Address: [address] [place] [address] Performed By: #### 7 3752-8, 89214-2, 2276-4 #### [facility] CLIA [id number] [address] [place] [address] [place] ROUTINE, GROUP B ST REPTOCOCCUS BY PCRon 01-19-2025 ROUTINE, GROUP B STREPTOCOCCUS BY PCR Not detected Normal [facility] Comment on above: Performed By: #### 7 3752-8, 40945-3, 2276-4 #### [facility] CLIA [id number] [address] [place] [address] OF [facility] CNPNon 01-05-2025 CNPN Telephone (OBGYWM) ---- LAURA CASTELLANOS ([id number]) 1995 [facility] Date Time Provider Department 01/05/25 LISANDRO PALENCIA OBGYWLance During your visit today, we recorded the following information about you: Regina Benitez RN 01/05/2025 4:51 PM Signed 34w4d Received written order from [facility] for GDM program. Left detailed message for patient to call office. Want to clarify that patient does want us to complete this for her. She already has testing supplies. Is she wanting us to check off the breast pump order? Form in nurse triage room. NIKHIL Bonilla Trisha, RN 01/06/2025 12:33 PM Signed Patient does want order completed because that is how she can get reimbursed for her testing supplies. She does want breast pump order checked off too. Order form filled out. To SW to sign. NIKHIL Wilkerson Sara, MD 01/06/2025 5:10 PM Signed signed Regina Benitez RN 01/09/2025 9:54 AM Signed Faxed. Regina Benitez RN Allergies As of Date: 01/05/2025 Noted Allergy Reaction CHLORHEXIDINE 05/24/2023 9 - Itching LATEX 06/22/2024 2 - Rash Date Reviewed: 01/04/2025 Reviewed by: Marcelle Mehta LPN - Fully Assessed Reason for Visit: Forms/letter [7661] Prescriptions as of 01/09/2025 - FERROUS SULFATE DRIED ORAL Take by mouth once daily. - multivitamin with iron (DAILY VITAMINS/IRON ORAL) Take by mouth. - Breast Pump Use as directed - metoclopramide HCl (REGLAN) 10 mg tablet Take 1 tablet by mouth three times a day as needed (headache or nausea). - blood sugar diagnostic test strip Use as directed to check glucose levels up to seven times daily. - Lancets Use as directed to check glucose levels up to seven times daily. - alcohol swabs (ALCOHOL PREP PADS) Use as directed to check glucose levels up to seven times daily. - aspirin, enteric coated (ECOTRIN LOW STRENGTH) 81 mg EC tablet Take 1 tablet by mouth once daily. - vit37/iron/folic acid (PRENATA ORAL) Take 2 capsules by mouth once daily. - coenzyme Q10 (CO Q-10) 100 mg cap capsule Take 200 mg by mouth once daily. - cholecalciferol, vitamin D3, (VITAMIN D3 ORAL) Take 2,000 Units by mouth once daily. - calcium carbonate/vitamin D3 (CALCIUM 600 + D ORAL) Take 1 capsule by mouth once daily. 200 international unit(s) of Vitamin D - Cyanocobalamin (VITAMIN B-12) 1,000 mcg TbER Take 1 tablet by mouth once daily. - metFORMIN ER (GLUCOPHAGE XR) 500 mg 24 hr tablet Take 2 tablets by mouth two times a day with meals. Problem List As Of Date 01/05/2025 Noted Resolved NIVIA on CPAP [G47.33] 06/16/2023 PCOS (polycystic ovarian syndrome) [E28.2] 06/16/2023 Circadian rhythm sleep disorder, shift work typ*06/16/2023 09/14/2023 Class 3 severe obesity with serious comorbidity* 024 09/06/2024 Obesity, Class II, BMI 35-39.9 [E66.812] 09/14/2023 09/06/2024 COVID-19 vaccine series declined [Z28.21, Z28.3*02/05/2024 Encounter for fertility preservation procedure *02/05/2024 Female infertility of uterine origin [N97.2] 02/05/2024 Resistant ovary syndrome [E28.39] 02/05/2024 History of pulmonary embolism [Z86.711] 2018 BMI 35.0-35.9,adult [Z68.35] 06/27/2024 Supervision of high risk , antepartum *06/27/2024 Obesity in (HCC) [O99.210] 09/06/2024 Diet controlled gestational diabetes mellitus (*10/04/2024 Elevated hemoglobin A1c [R73.09] 10/26/2024 Antepartum anemia complicating in thi*11/27/2024 Encounter Status:Closed by REGINA BENITEZ on 01/09/25 [facility] Of Membraneson 12-26-2024 ROM Negative Normal Negative [facility] Work Phone: Comment on above: Result Comment: Amni otic fluid not present indicates No Rupture of Membranes at time of specimen collection. Performed By: #### L 205.1000 #### [facility] [address] [place] [address]. [place], [address] [facility] 12-26-2024 [facility] Telephone (OBGYWM) ---- LAURA CASTELLANOS ([id number]) 1995 [address] [facility] [place] Date Time Provider Department 12/26/24 LISANDRO PALENCIA OBJUNEWLance During your visit today, we recorded the following information about you: Regina Benitez RN 12/26/2024 11:11 AM Signed 33w1d Patient states that while walking up the stairs she felt a gush of fluid. Happened 20 min before she called. Changed clothes, not wearing a pad/liner, and hasn't experienced any more since. Denies cramping, contractions, or VB. Having good FM. Advised to continue to monitor until she hears back from the office. Would you like her seen here, [facility], or [facility] to rule out SROM? NIKHIL Bonilla Sara, MD 12/26/2024 12:15 PM Signed Recommend [facility] for Cat Hinkle RN 12/26/2024 12:31 PM Signed Patient notified and [facility] notified patient coming in. Cat Villanueva RN Allergies As of Date: 12/26/2024 Noted Allergy Reaction CHLORHEXIDINE 05/24/2023 9 - Itching LATEX 06/22/2024 2 - Rash Date Reviewed: 12/22/2024 Reviewed by: Chelsy Walter MA - Fully Assessed Reason for Visit: OB Leaking Fluid [Other] Prescriptions as of 12/26/2024 - multivitamin with iron (DAILY VITAMINS/IRON ORAL) Take by mouth. - Breast Pump Use as directed - metoclopramide HCl (REGLAN) 10 mg tablet Take 1 tablet by mouth three times a day as needed (headache or nausea). - blood sugar diagnostic test strip Use as directed to check glucose levels up to seven times daily. - Lancets Use as directed to check glucose levels up to seven times daily. - alcohol swabs (ALCOHOL PREP PADS) Use as directed to check glucose levels up to seven times daily. - aspirin, enteric coated (ECOTRIN LOW STRENGTH) 81 mg EC tablet Take 1 tablet by mouth once daily. - vit37/iron/folic acid (PRENATA ORAL) Take 2 capsules by mouth once daily. - coenzyme Q10 (CO Q-10) 100 mg cap capsule Take 200 mg by mouth once daily. - cholecalciferol, vitamin D3, (VITAMIN D3 ORAL) Take 2,000 Units by mouth once daily. - calcium carbonate/vitamin D3 (CALCIUM 600 + D ORAL) Take 1 capsule by mouth once daily. 200 international unit(s) of Vitamin D - Cyanocobalamin (VITAMIN B-12) 1,000 mcg TbER Take 1 tablet by mouth once daily. - metFORMIN ER (GLUCOPHAGE XR) 500 mg 24 hr tablet Take 2 tablets by mouth two times a day with meals. Problem List As Of Date 12/26/2024 Noted Resolved NIVIA on CPAP [G47.33] 06/16/2023 PCOS (polycystic ovarian syndrome) [E28.2] 06/16/2023 Circadian rhythm sleep disorder, shift work typ*06/16/2023 09/14/2023 Class 3 severe obesity with serious comorbidity* 024 09/06/2024 Obesity, Class II, BMI 35-39.9 [E66.812] 09/14/2023 09/06/2024 COVID-19 vaccine series declined [Z28.21, Z28.3*02/05/2024 Encounter for fertility preservation procedure *02/05/2024 Female infertility of uterine origin [N97.2] 02/05/2024 Resistant ovary syndrome [E28.39] 02/05/2024 History of pulmonary embolism [Z86.711] 2018 BMI 35.0-35.9,adult [Z68.35] 06/27/2024 Supervision of high risk , antepartum *06/27/2024 Obesity in (HCC) [O99.210] 09/06/2024 Diet controlled gestational diabetes mellitus (*10/04/2024 Elevated hemoglobin A1c [R73.09] 10/26/2024 Antepartum anemia complicating in thi*11/27/2024 Encounter Status:Closed by CAT VILLANUEVA on 12/26/24 Normal [facility] OB Triage Physician Noteon 0 12-26-2024 OB Triage Physician Note [facility] Medical Records Department [address] [place] [address] OB Triage Physician Note 12/26/24 [id number] MR#: [id number] Acct: [id number] Name: LAURA CASTELLANOS Rep #: [id number] : 1995 29 From: Lisandro Palencia DO PCP: Dr. Blessing Pena MD Status:DEP CLI Y Location: [facility] HPI - General General Date of Admission: 12/26/24 Date of Service: 12/26/24 Chief Complaint: LOF HPI Narrative LAURA CASTELLANOS, is a 29 F who presents after 1 gush of fluid at home. no further leaking or gushes of fluid. no bleeding or ctx's. good FM. PFSH PFSH Home Medications ???Medication ???Instructions ???Recorded ???Last Taken ???Type aspirin 81 mg tablet,delayed 81 mg PO DAILY@0800 03/06/2012/25 21:30 History release calcium carb-ergocalciferol (vit tab PO 12/26/24 12/25/24 21:30 His tory D2) 600 mg calcium-200 unit tablet coenzyme Q10 100 mg capsule (Co 100 mg PO DAILY 12/26/24 12/26/24 12:30 History Q-10) metformin 500 mg tablet,extended 1,000 mg PO BID 12/26/24 12/26/24 12:30 History release 24 hr vit no.95-ferrous 1 tab PO DAILY 12/26/24 12/26/24 1 0:30 History fumarate 28 mg-folic acid 800 mcg tablet () Allergy/AdvReac Type Severity Reaction Status Date / Time chlorhexidine (From AdvReac Rash Verified 12/26/24 15:00 Hibiclens) Latex, Natural Rubber AdvReac Rash Verified 12/26/24 14:45 Social History Smoking Status: Never smoker NST FHR Rate Baby A Baseline: 140 Variability:: Moderate Accelerations:: 15 x 15 Decelerations:: None NST Reactive:: Yes FHR Category:: Category I Uterine Activity:: none Assessment Plan (1) 33 weeks gestation of : (2) Vaginal discharge: PLAN: 1small gush of fluid at home. No continuous or further leaking. Pad dry during observation in triage ROM plus negative Return precautions given 12/26/241826 Date Lisandro Palencia DO Cosigner Signature (if applicable): Date __ CC: Dr. Lisandro Palencia DO; Dr. Blessing Pena MD Signed Normal [facility] Examination level ultrasound on 12-23-2024 [facility] Examination level ultrasound on 12-22-2024 Radiology Study observation (narrative) [facility] URINE OB DIP B/Oon Glucose Ql (U) Negative Neg mg/dL [facility] Protein.monoclonal (U) [Mass/Vol] Negative Neg mg/dL [facility] Examination level ultrasound on 11-25-2024 [facility] CBC W Auto Differential pane l (Bld)on 11-23-2024 Basophils (Bld) [#/Vol] 10*3/uL Normal <0.11 C [facility] Comment on above: Order Comment: Speci men Type: BLOOD SPECIMEN Ordering Facility: [facility] Address: [address] [place] [address] Performed By: #### 5 7021-8 #### [facility] CLIA [id number] [address] [place] [address] [place] Basophils/100 WBC (Bld) 0.2 % Normal C [facility] Comment on above: Order Comment: Speci men Type: BLOOD SPECIMEN Ordering Facility: [facility] Address: [address] [place] [address] Performed By: #### 5 7021-8 #### [facility] CLIA [id number] [address] [place] [address] [place] Differential cell count method Nom (Bld) Auto Normal [facility] Comment on above: Order Comment: Speci men Type: BLOOD SPECIMEN Ordering Facility: [facility] Address: [address] [place] [address] Performed By: #### 5 7021-8 #### [facility] CLIA [id number] [address] [place] [address] [place] Eosinophils (Bld) [#/Vol] 0.06 10*3/uL Normal <0.46 [facility] Comment on above: Order Comment: Speci men Type: BLOOD SPECIMEN Ordering Facility: [facility] Address: [address] [place] [address] Performed By: #### 5 7021-8 #### [facility] CLIA [id number] [address] [place] [address] [place] Eosinophils/100 WBC (Bld) 0.5 % Normal [facility] Comment on above: Order Comment: Speci men Type: BLOOD SPECIMEN Ordering Facility: [facility] Address: [address] [place] [address] Performed By: #### 5 7021-8 #### [facility] CLIA [id number] [address] [place] [address] [place] Erythrocyte distribution width (RBC) [Ratio] 13.9 % Normal 11.5-15.0 [facility] Comment on above: Order Comment: Speci men Type: BLOOD SPECIMEN Ordering Facility: [facility] Address: [address] [place] [address] Performed By: #### 5 7021-8 #### [facility] CLIA [id number] [address] [place] [address] [place] Hematocrit (Bld) [Volume fraction] 33.2 % Low 36.0-46.0 [facility] Comment on above: Order Comment: Speci men Type: BLOOD SPECIMEN Ordering Facility: [facility] Address: [address] [place] [address] Performed By: #### 5 7021-8 #### [facility] CLIA [id number] [address] [place] [address] [place] Hemoglobin (Bld) [Mass/Vol] 10.7 g/dL Low 11.5-15.5 [facility] Comment on above: Order Comment: Speci men Type: BLOOD SPECIMEN Ordering Facility: [facility] Address: [address] [place] [address] Performed By: #### 5 7021-8 #### [facility] CLIA [id number] [address] [place] [address] [place] Immature granulocytes (Bld) [#/Vol] 0.05 10*3/uL Normal <0.10 [facility] Comment on above: Order Comment: Speci men Type: BLOOD SPECIMEN Ordering Facility: [facility] Address: [address] [place] [address] Performed By: #### 5 7021-8 #### [facility] CLIA [id number] [address] [place] [address] [place] Immature granulocytes/100 WBC (Bld) 0.4 % Normal [facility] Comment on above: Order Comment: Speci men Type: BLOOD SPECIMEN Ordering Facility: [facility] Address: [address] [place] [address] Performed By: #### 5 7021-8 #### [facility] CLIA [id number] [address] [place] [address] [place] Lymphocytes (Bld) [#/Vol] 1.68 10*3/uL Normal 1.00-4.00 [facility] Comment on above: Order Comment: Speci men Type: BLOOD SPECIMEN Ordering Facility: [facility] Address: [address] [place] [address] Performed By: #### 5 7021-8 #### [facility] CLIA [id number] [address] [place] [address] [place] Lymphocytes/100 WBC (Bld) 13.4 % Normal [facility] Comment on above: Order Comment: Speci men Type: BLOOD SPECIMEN Ordering Facility: [facility] Address: [address] [place] [address] Performed By: #### 5 7021-8 #### [facility] CLIA [id number] [address] [place] [address] [place] MCH (RBC) [Entitic mass] 28.1 pg Normal 26.0-34.0 [facility] Comment on above: Order Comment: Speci men Type: BLOOD SPECIMEN Ordering Facility: [facility] Address: [address] [place] [address] Performed By: #### 5 7021-8 #### [facility] CLIA [id number] [address] [place] [address] [place] MCHC (RBC) [Mass/Vol] 32.2 g/dL Normal 30.5-36.0 [facility] Comment on above: Order Comment: Speci men Type: BLOOD SPECIMEN Ordering Facility: [facility] Address: [address] [place] [address] Performed By: #### 5 7021-8 #### [facility] CLIA [id number] [address] [place] [address] [place] MCV (RBC) [Entitic vol] 87.1 fL Normal 80.0-100.0 C [facility] Comment on above: Order Comment: Speci men Type: BLOOD SPECIMEN Ordering Facility: [facility] Address: [address] [place] [address] Performed By: #### 5 7021-8 #### [facility] CLIA [id number] [address] [place] [address] [place] Monocytes (Bld) [#/Vol] 0.92 10*3/uL High <0.87 [facility] Comment on above: Order Comment: Speci men Type: BLOOD SPECIMEN Ordering Facility: [facility] Address: [address] [place] [address] Performed By: #### 5 7021-8 #### [facility] CLIA [id number] [address] [place] [address] [place] Monocytes/100 WBC (Bld) 7.4 % Normal C [facility] Comment on above: Order Comment: Speci men Type: BLOOD SPECIMEN Ordering Facility: [facility] Address: [address] [place] [address] Performed By: #### 5 7021-8 #### [facility] CLIA [id number] [address] [place] [address] [place] Neutrophils (Bld) [#/Vol] 9.78 10*3/uL High 1.45-7.50 [facility] Comment on above: Order Comment: Speci men Type: BLOOD SPECIMEN Ordering Facility: [facility] Address: [address] [place] [address] Performed By: #### 5 7021-8 #### [facility] CLIA [id number] [address] [place] [address] [place] Neutrophils/100 WBC (Bld) 78.1 % Normal [facility] Comment on above: Order Comment: Speci men Type: BLOOD SPECIMEN Ordering Facility: [facility] Address: [address] [place] [address] Performed By: #### 5 7021-8 #### [facility] CLIA [id number] [address] [place] [address] [place] Nucleated RBC (Bld) [#/Vol] 10*3/uL Normal <0.01 [facility] Comment on above: Order Comment: Speci men Type: BLOOD SPECIMEN Ordering Facility: [facility] Address: [address] [place] [address] Performed By: #### 5 7021-8 #### [facility] CLIA [id number] [address] [place] [address] [place] Nucleated RBC/100 WBC (Bld) [Ratio] 0.0 /100 WBC Normal [facility] Comment on above: Order Comment: Speci men Type: BLOOD SPECIMEN Ordering Facility: [facility] Address: [address] [place] [address] Performed By: #### 5 7021-8 #### [facility] [facility] CLIA [id number] [address] [place] [address] [place] Platelet mean volume (Bld) [Entitic vol] 11.4 fL Normal 9.0-12.7 [facility] Comment on above: Order Comment: Speci men Type: BLOOD SPECIMEN Ordering Facility: [facility] Address: [address] [place] [address] Performed By: #### 5 7021-8 #### [facility] CLIA [id number] [address] [place] [address] [place] Platelets (Bld) [#/Vol] 259 10*3/uL Normal 150-400 [facility] Comment on above: Order Comment: Speci men Type: BLOOD SPECIMEN Ordering Facility: [facility] Address: [address] [place] [address] Performed By: #### 5 7021-8 #### [facility] CLIA [id number] [address] [place] [address] [place] RBC (Bld) [#/Vol] 3.81 10*6/uL Low 3.90-5.20 [facility] Comment on above: Order Comment: Speci men Type: BLOOD SPECIMEN Ordering Facility: [facility] Address: [address] [place] [address] Performed By: #### 5 7021-8 #### [facility] CLIA [id number] [address] [place] [address] [place] WBC (Bld) [#/Vol] 12.51 10*3/uL High 3.70-11.00 [facility] Comment on above: Order Comment: Speci men Type: BLOOD SPECIMEN Ordering Facility: [facility] Address: [address] [place] [address] Performed By: #### 5 7021-8 #### [facility] CLIA [id number] [address] [place], [place] [address] [place] Examination level ultrasound on 11-23-2024 Radiology Study observation (narrative) [facility] Ferritin [Mass/Vol] 15.5 ng/mL Normal 14.7-205.1 [facility] Comment on above: Order Comment: Speci men Type: BLOOD SPECIMEN Ordering Facility: [facility] Address: [address] [place] [address] Performed By: #### 7 3752-8, 93330-2, 6-4 #### [facility] CLIA [id number] [address] [place] [address] [place] Iron and Iron binding capaci ty panelon 11-23-2024 Iron [Mass/Vol] 47 ug/dL Normal 41-186 [facility] Comment on above: Order Comment: Speci men Type: BLOOD SPECIMEN Ordering Facility: [facility] Address: [address] [place] [address] Performed By: #### 7 3752-8, 29966-7, 4 #### [facility] CLIA [id number] [address] [place] [address] [place] Iron binding capacity [Mass/Vol] 534 ug/dL High 232-386 [facility] Comment on above: Order Comment: Speci men Type: BLOOD SPECIMEN Ordering Facility: [facility] Address: [address] [place] [address] Performed By: #### 7 3752-8, 71000-3, 4 #### [facility] CLIA [id number] [address] [place] [address] [place] Iron/TIBC [Molar ratio] 8.8 % Low 15.0-57.0 C [facility] Comment on above: Order Comment: Speci men Type: BLOOD SPECIMEN Ordering Facility: [facility] Address: [address] [place] [address] Performed By: #### 7 3752-8, 13331-7, 6-4 #### [facility] CLIA [id number] [address] [place] [address] [place] Reagin and Treponema pallidu m IgG and IgM [Interp]on 11-23-2024 T. pallidum IgG+IgM IA Ql (S) Non-Reactive Normal Nonreactive [facility] Comment on above: Order Comment: Romelia sanchez Type: BLOOD SPECIMEN Ordering Facility: [facility] Address: [address] [place] [address] Performed By: #### 7 3752-8, 98608-9, 2276-4 #### [facility] CLIA [id number] [address] [place] [address] [place] Reagin+T pallidum IgG+IgM Se rPl-Impon 11-23-2024 Reagin and Treponema pallidum IgG and IgM [Interp] Cannot exclude recent Treponemal infection if specimen collected within 7-10 days after appearance of suspect lesions or 2-3 weeks after an exposure. Clinical correlation is required. Normal [facility] Comment on above: Order Comment: Romelia sanchez Type: BLOOD SPECIMEN Ordering Facility: [facility] Address: [address] [place] [address] Performed By: #### 7 3752-8, 65437-1, 2275-4 #### [facility] CLIA [id number] [address] [place] [address] [place] CBC panel Auto (Bld)on 10-26 Erythrocyte distribution width (RBC) [Ratio] 13.7 % 11.5 - 15.0 % [facility] Hematocrit (Bld) [Volume fraction] 35 % Low 36.0 - 46.0 % [facility] Hemoglobin (Bld) [Mass/Vol] 11.7 g/dL 11.5 - 15.5 g/dL [facility] Interpretation and review of laboratory results Abnormal [facility] MCH (RBC) [Entitic mass] 28.5 pg 26.0 - 34.0 pg [facility] MCHC (RBC) [Mass/Vol] 33.4 g/dL 30.5 - 36.0 g/dL [facility] MCV (RBC) [Entitic vol] 85.2 fL 80.0 - 100.0 fL [facility] Nucleated RBC (Bld) [#/Vol] NINF [facility] Platelet mean volume (Bld) [Entitic vol] 11.1 fL 9.0 - 12.7 fL [facility] Platelets (Bld) [#/Vol] 289 10*3/uL [facility] RBC (Bld) [#/Vol] 4.11 10*6/uL 3.90 - 5.2 0 m/uL [facility] WBC (Bld) [#/Vol] 12.51 10*3/uL High [facility] Erythrocyte distribution width (RBC) [Ratio] 13.7 % Normal 11.5-15.0 [facility] Comment on above: Order Comment: Speci men Type: BLOOD SPECIMEN Ordering Facility: [facility] Address: [address] [place] [address] Performed By: #### 7 3752-8, 14637-7, 2275-4 #### [facility] CLIA [id number] [address] [place] [address] [place] Hematocrit (Bld) [Volume fraction] 35.0 % Low 36.0-46.0 [facility] Comment on above: Order Comment: Speci men Type: BLOOD SPECIMEN Ordering Facility: [facility] Address: [address] [place] [address] Performed By: #### 7 3752-8, 83953-5, 2275-4 #### [facility] CLIA [id number] [address] [place] [address] [place] Hemoglobin (Bld) [Mass/Vol] 11.7 g/dL Normal 11.5-15.5 [facility] Comment on above: Order Comment: Speci men Type: BLOOD SPECIMEN Ordering Facility: [facility] Address: [address] [place] [address] Performed By: #### 7 3752-8, 90833-6, 2275-4 #### [facility] CLIA [id number] [address] [place] [address] [place] MCH (RBC) [Entitic mass] 28.5 pg Normal 26.0-34.0 [facility] Comment on above: Order Comment: Speci men Type: BLOOD SPECIMEN Ordering Facility: [facility] Address: [address] [place] [address] Performed By: #### 7 3752-8, 53314-5, 4 #### [facility] CLIA [id number] [address] [place] [address] [place] MCHC (RBC) [Mass/Vol] 33.4 g/dL Normal 30.5-36.0 [facility] Comment on above: Order Comment: Speci men Type: BLOOD SPECIMEN Ordering Facility: [facility] Address: [address] [place] [address] Performed By: #### 7 3752-8, 38406-2, 4 #### [facility] CLIA [id number] [address] [place] [address] [place] MCV (RBC) [Entitic vol] 85.2 fL Normal 80.0-100.0 [facility] Comment on above: Order Comment: Speci men Type: BLOOD SPECIMEN Ordering Facility: [facility] Address: [address] [place] [address] Performed By: #### 7 3752-8, 20435-8, 2275-07 #### [facility] CLIA [id number] [address] [place] [address] [place] Nucleated RBC (Bld) [#/Vol] 10*3/uL Normal <0.01 [facility] Comment on above: Order Comment: Speci men Type: BLOOD SPECIMEN Ordering Facility: [facility] Address: [address] [place] [address] Performed By: #### 7 3752-8, 69787-5, 4 #### [facility] CLIA [id number] [address] [place] [address] [place] Platelet mean volume (Bld) [Entitic vol] 11.1 fL Normal 9.0-12.7 [facility] Comment on above: Order Comment: Speci men Type: BLOOD SPECIMEN Ordering Facility: [facility] Address: [address] [place] [address] Performed By: #### 7 3752-8, 28143-5, 6-4 #### [facility] CLIA [id number] [address] [place] [address] [place] Platelets (Bld) [#/Vol] 289 10*3/uL Normal 150-400 [facility] Comment on above: Order Comment: Speci men Type: BLOOD SPECIMEN Ordering Facility: [facility] Address: [address] [place] [address] Performed By: #### 7 3752-8, 41157-8, 2275-4 #### [facility] CLIA [id number] [address] [place] [address] [place] RBC (Bld) [#/Vol] 4.11 10*6/uL Normal 3.90-5.20 [facility] Comment on above: Order Comment: Speci men Type: BLOOD SPECIMEN Ordering Facility: [facility] Address: [address] [place] [address] Performed By: #### 7 3752-8, 04816-2, 4 #### [facility] CLIA [id number] [address] [place] [address] [place] WBC (Bld) [#/Vol] 12.51 10*3/uL High 3.70-11.00 [facility] Comment on above: Order Comment: Speci men Type: BLOOD SPECIMEN Ordering Facility: [facility] Address: [address] [place] [address] Performed By: #### 7 3752-8, 82986-0, 2275-4 #### [facility] CLIA [id number] [address] [place], [place] [address] [place] Comprehensive metabolic 2000 panelOrdered By: Mary Jo Blair on 10-26-2024 Albumin [Mass/Vol] 3.9 g/dL 3.9 - 4.9 g/dL [facility] ALP [Catalytic activity/Vol] 66 U/L 34 - 123 U/L [facility] ALT [Catalytic activity/Vol] 24 U/L 7 - 38 U/L [facility] Anion gap [Moles/Vol] 14 mmol/L 8 - 15 mmol/L [facility] AST [Catalytic activity/Vol] 12 U/L Low 13 - 35 U/L [facility] Bilirubin [Mass/Vol] 0.2 mg/dL 0.2 - 1.3 mg/dL [facility] Calcium [Mass/Vol] 10.1 mg/dL 8.5 - 10. 2 mg/dL [facility] Chloride [Moles/Vol] 101 mmol/L 98 - 107 mmol/L [facility] CO2 [Moles/Vol] 19 mmol/L Low 22 - 30 mmol/L [facility] Creatinine [Mass/Vol] 0.65 mg/dL 0.58 - 0.96 mg/dL [facility] GFR/1.73 sq M.predicted among non-blacks MDRD (S/P/Bld) [Vol rate/Area] 121 mL/min/{1.73_m2} - PINF [facility] Comment on above: Estimated Glomerular Filtration Rate (eGFR) is calculated using the 2020 CKD-EPI creatinine equation. This equation utilizes serum creatinine, sex, and age as parameters. The creatinine assay has traceable calibration to isotope dilution-mass spectrometry. Refer to KDIGO guidelines for clinical interpretation. In patients with unstable renal function, e.g. those with acute kidney injury, the eGFR may not accurately reflect actual GFR. Glucose [Mass/Vol] 79 mg/dL 74 - 99 mg/dL [facility] Comment on above: The [place] Diab[employer] s Association (ADA) provides guidance for cutoff values for fasting glucose and random glucose. The ADA defines fasting as no caloric intake for at least 8 hours. Fasting plasma glucose results between 100 to 125 mg/dL indicate increased risk for diabetes (prediabetes). Fasting plasma glucose results greater than or equal to 126 mg/dL meet the criteria for diagnosis of diabetes. In the absence of unequivocal hyperglycemia, results should be confirmed by repeat testing. In a patient with classic symptoms of hyperglycemia or hyperglycemic crisis, random plasma glucose results greater than or equal to 200 mg/dL meet the criteria for diagnosis of diabetes. Reference: Standards of Medical Care in Diabetes 2016, [place] [employer]. Diabetes Care. 2016.39(Suppl 1). Interpretation and review of laboratory results Abnormal [facility] Potassium [Moles/Vol] 3.8 mmol/L 3.7 - 5.1 mmol/L [facility] Protein [Mass/Vol] 7.4 g/dL 6.3 - 8.0 g/dL [facility] Sodium [Moles/Vol] 134 mmol/L Low 136 - 144 mmol/L [facility] Urea nitrogen [Mass/Vol] 11 mg/dL 7 - 21 mg/dL [facility] Comprehensive metabolic 2000 panelon 10-26-2024 Albumin [Mass/Vol] 3.9 g/dL Normal 3.9-4.9 [facility] Comment on above: Order Comment: Romelia sanchez Type: BLOOD SPECIMEN Ordering Facility: [facility] Address: [address] [place] [address] Performed By: #### 7 3752-8, 42568-2, 2275-4 #### [facility] CLIA [id number] [address] [place] [address] [place] ALP [Catalytic activity/Vol] 66 U/L Normal 34-123 [facility] Comment on above: Order Comment: Romelia sanchez Type: BLOOD SPECIMEN Ordering Facility: [facility] Address: [address] [place] [address] Performed By: #### 7 3752-8, 53881-0, 2275-4 #### [facility] CLIA [id number] [address] [place] [address] [place] ALT [Catalytic activity/Vol] 24 U/L Normal 7-38 [facility] Comment on above: Order Comment: Hermiloi laura Type: BLOOD SPECIMEN Ordering Facility: [facility] Address: [address] [place] [address] Performed By: #### 7 3752-8, 05376-3, 2275-4 #### [facility] CLIA [id number] [address] [place] [address] [place] Anion gap [Moles/Vol] 14 mmol/L Normal 8-15 [facility] Comment on above: Order Comment: Speci men Type: BLOOD SPECIMEN Ordering Facility: [facility] Address: [address] [place] [address] Performed By: #### 7 3752-8, 92277-4, 2275-4 #### [facility] CLIA [id number] [address] [place] [address] [place] AST [Catalytic activity/Vol] 12 U/L Low 13-35 [facility] Comment on above: Order Comment: Speci men Type: BLOOD SPECIMEN Ordering Facility: [facility] Address: [address] [place] [address] Performed By: #### 7 3752-8, 30520-1, 4 #### [facility] CLIA [id number] [address] [place] [address] [place] Bilirubin [Mass/Vol] 0.2 mg/dL Normal 0.2-1.3 [facility] Comment on above: Order Comment: Speci men Type: BLOOD SPECIMEN Ordering Facility: [facility] Address: [address] [place] [address] Performed By: #### 7 3752-8, 59129-8, 4 #### [facility] CLIA [id number] [address] [place] [address] [place] Calcium [Mass/Vol] 10.1 mg/dL Normal 8.5-10.2 [facility] Comment on above: Order Comment: Speci men Type: BLOOD SPECIMEN Ordering Facility: [facility] Address: [address] [place] [address] Performed By: #### 7 3752-8, 04953-8, 2275-4 #### [facility] CLIA [id number] [address] [place] [address] [place] Chloride [Moles/Vol] 101 mmol/L Normal 98-107 [facility] Comment on above: Order Comment: Speci men Type: BLOOD SPECIMEN Ordering Facility: [facility] Address: [address] [place] [address] Performed By: #### 7 3752-8, 10144-2, 6-4 #### [facility] CLIA [id number] [address] [place] [address] [place] CO2 [Moles/Vol] 19 mmol/L Low 22-30 [facility] Comment on above: Order Comment: Speci men Type: BLOOD SPECIMEN Ordering Facility: [facility] Address: [address] [place] [address] Performed By: #### 7 3752-8, 79986-0, 6-4 #### [facility] CLIA [id number] [address] [place] [address] [place] Creatinine [Mass/Vol] 0.65 mg/dL Normal 0.58-0.96 [facility] Comment on above: Order Comment: Speci men Type: BLOOD SPECIMEN Ordering Facility: [facility] Address: [address] [place] [address] Performed By: #### 7 3752-8, 47192-9, 6-4 #### [facility] CLIA [id number] [address] [place] [address] [place] eGFRcr SerPlBld CKD-EPI 2020 121 mL/min/1.73m??? Normal >=60 [facility] Comment on above: Order Comment: Speci men Type: BLOOD SPECIMEN Ordering Facility: [facility] Address: [address] [place] [address] Result Comment: Katerine mated Glomerular Filtration Rate (eGFR) is calculated using the 2020 CKD-EPI creatinine equation. This equation utilizes serum creatinine, sex, and age as parameters. The creatinine assay has traceable calibration to isotope dilution-mass spectrometry. Refer to KDIGO guidelines for clinical interpretation. In patients with unstable renal function, e.g. those with acute kidney injury, the eGFR may not accurately reflect actual GFR. Performed By: #### 7 3752-8, 24852-1, 2275-4 #### [facility] CLIA [id number] [address] [place] [address] [place] Glucose [Mass/Vol] 79 mg/dL Normal 74-99 [facility] Comment on above: Order Comment: Romelia sanchez Type: BLOOD SPECIMEN Ordering Facility: [facility] Address: [address] [place] [address] Result Comment: The [place] Diabetes Association (ADA) provides guidance for cutoff values for fasting glucose and random glucose. The ADA defines fasting as no caloric intake for at least 8 hours. Fasting plasma glucose results between 100 to 125 mg/dL indicate increased risk for diabetes (prediabetes). Fasting plasma glucose results greater than or equal to 126 mg/dL meet the criteria for diagnosis of diabetes. In the absence of unequivocal hyperglycemia, results should be confirmed by repeat testing. In a patient with classic symptoms of hyperglycemia or hyperglycemic crisis, random plasma glucose results greater than or equal to 200 mg/dL meet the criteria for diagnosis of diabetes. Reference: Standards of Medical Care in Diabetes 2016, [place] [employer]. Diabetes Care. 2016.39(Suppl 1). Performed By: #### 7 3752-8, 59913-9, 4 #### [facility] CLIA [id number] [address] [place] [address] [place] Potassium [Moles/Vol] 3.8 mmol/L Normal 3.7-5.1 [facility] Comment on above: Order Comment: Romelia sanchez Type: BLOOD SPECIMEN Ordering Facility: [facility] Address: [address] [place] [address] Performed By: #### 7 3752-8, 82304-3, 4 #### [facility] CLIA [id number] [address] [place], [place] [address] [place] Protein [Mass/Vol] 7.4 g/dL Normal 6.3-8.0 [facility] Comment on above: Order Comment: Romelia sanchez Type: BLOOD SPECIMEN Ordering Facility: [facility] Address: [address] [place] [address] Performed By: #### 7 3752-8, 78002-9, 2275-4 #### [facility] CLIA [id number] [address] [place] [address] [place] Sodium [Moles/Vol] 134 mmol/L Low 136-144 [facility] Comment on above: Order Comment: Speci men Type: BLOOD SPECIMEN Ordering Facility: [facility] Address: [address] [place] [address] Performed By: #### 7 3752-8, 41579-9, 4 #### [facility] CLIA [id number] [address] [place] [address] [place] Urea nitrogen [Mass/Vol] 11 mg/dL Normal 7-21 [facility] Comment on above: Order Comment: Speci men Type: BLOOD SPECIMEN Ordering Facility: [facility] Address: [address] [place] [address] Performed By: #### 7 3752-8, 58418-9, 4 #### [facility] CLIA [id number] [address] [place] [address] [place] Prot/Creat Uron 10-26-2024 Protein/Creatinine (U) [Mass ratio] mg/g High <0.15 [facility] Comment on above: Order Comment: Speci men Type: BLOOD SPECIMEN Ordering Facility: [facility] Address: [address] [place] [address] Result Comment: Adul t Proteinuria Categories: <0.15 mg/mg is considered normal to mildly increased 0.15 - 0.50 mg/mg is considered moderately increased >0.50 mg/mg is considered severely increased KDIGO. (2013). KDIGO 2012 Clinical Practice Guideline for the Evaluation and Management of Chronic Kidney Disease. Official Journal of the International Society of Nephrology, 3(1), 1-150. Performed By: #### 7 3752-8, 47963-7, 2275-4 #### [facility] CLIA [id number] [address] [place], [place] [address] [place] Protein/Creatinine (U) [Mass ratio]on 10-26-2024 Creatinine (U) [Mass/Vol] 15.6 mg/dL Low 20.0-300.0 [facility] Comment on above: Order Comment: Speci men Type: BLOOD SPECIMEN Ordering Facility: [facility] Address: [address] [place] [address] Performed By: #### 7 3752-8, 98809-9, 2276-4 #### [facility] CLIA [id number] [address] [place] [address] [place] Protein (U) [Mass/Vol] mg/dL Normal 0-20 [facility] Comment on above: Order Comment: Speci men Type: BLOOD SPECIMEN Ordering Facility: [facility] Address: [address] [place] [address] Performed By: #### 7 3752-8, 42674-4, 2276-4 #### [facility] CLIA [id number] [address] [place] [address] [place] Emergency Department Summary on 10-21-2024 Emergency Department Summary [facility] Medical Records Department [address] [place] [id number] Emergency Department Summary 10/21/24 MR#: [id number] Acct: [id number] Name: LAURA CASTELLANOS Rep #: [id number] : 1995 29 From: Aldo Rodriguez DO PCP: Dr. Blessing Pena MD Status:REG ER Location: ED ADDENDUM by Dr. Aldo Rodriguez DO on 10/21/24 at 1614 Given that patient has no neurological deficits or concerning symptoms I do not think CT head was needed. Patient's pain also improved with migraine cocktail. 10/21/24 1614 Cosigner Signature (if applicable): cc: Dr. Blessing Pena MD * Signed HPI History of Present Illness Chief Complaint: Headache Narrative Narrative: Chief complaint and HPI: Headache. 29-year-old female who is at 23 weeks presents for evaluation of headache. Patient states several days ago she woke up with a mild headache that progressively worsened. Associated symptoms are light and sound sensitivity. She states she has been taking Tylenol with some relief. She has had headaches in the past. She denies any fever, chills, neck pain, vision changes, numbness/tingling, weakness, neurological deficit, vomiting, URI symptoms, chest pain, shortness of breath. She states that she has baseline nausea from her . Patient was seen at the [facility] office today in which they told her to come over to the emergency department to receive a migraine cocktail. Review of systems: See HPI Medications: As listed on the chart Allergies: As listed on the chart PFSH: Per chart Vital signs: As listed on the chart. Reviewed. Physical exam: Gen: A O x3, NAD, sitting with the lights dimmed Head: Normocephalic, atraumatic Eyes: No sclera icterus, conjunctiva clear, PERRL, EOMI ENT: TMs clear BL, moist mucous membranes, no facial asymmetry CV: RRR, no murmurs, no peripheral edema Resp: Lungs CTA BL, no w/r/c Musc: Full ROM, no deformity, strength +5/5 in all extremities Skin: Warm, dry, intact Neuro: Alert, oriented, grossly intact, sensation intact, no focal deficits Psych: Cooperative, appropriate mood and affect PFSH PFSH Medical History no medical history Home Medications ???Medication ???Instructions ???Recorded ???Last Taken ???Type Norethindrone [Dian] 0.35 mg PO DAILY 03/06/20 Unknown History Prebiotic 1 cap PO DAILY 03/06/20 Unknown Hi story aspirin 81 mg tablet,delayed 81 mg PO DAILY@0800 03/06/20 Unkno wn History release Allergy/AdvReac Type Severity Reaction Status Date / Time No Known Allergies Allergy Verified 10/21/24 12:25 Surgical History no surgical history Social History Smoking Status: Never smoker EXAM Physical Exam Const Vital Signs: 10/21/24 12:24 10/21/24 14:24 Temperature 98.1 F Temperature Source Temporal Pulse Rate 81 70 Respiratory Rate 14 Blood Pressure 128/81 H 128/70 H Blood Pressure Mean 96 89 Pulse Ox 98 100 Oxygen Delivery Method Room Air MDM MDM MDM Narrative Medical decision making narrative: 29-year-old female who is at 23 weeks presents for evaluation of headache. Patient states several days ago she woke up with a mild headache that progressively worsened. Associated symptoms are light and sound sensitivity. She states she has been taking Tylenol with some relief. Patient was seen at the [facility] office today in which they told her to come over to the emergency department to receive a migraine cocktail. Denies acute onset of headache reaching maximal intensity in under one hour. The onset of the headache was not timed with exertional activity or trauma. Patient has not experienced any fever, unusual neck pain or stiffness, syncope, near syncope, neurological deficit. On presentation, patient in no acute distress. Her vitals are stable. Physical exam is unremarkable. Patient's symptoms consist of tension headache, migraine headache. Will give migraine cocktail however given she is will not give Toradol and instead will give morphine. Patient was given the risk and benefits of morphine during . She consented. On reevaluation, patient states her headache has improved. Patient is stable to discharge home. Follow-up with primary care physician. Return precautions explained. She felt understand the plan. Patient stable to discharge home. Impression: 1. Headache, suspect migraine 2. Second trimester Discharge Plan Triage Chief Complaint: Headache ED Provider: Lorenzo Rodriguez Dx/Rx/DC Orders Prescriptions: No Action aspirin 81 MG tablet 81 mg PO DAILY@0800 Norethindrone [Dian] 0.35 MG tablet 0.35 mg PO DAILY Prebiotic 1 cap PO DAILY Primary Care Provider: Tona Boggs Referrals: Tona Boggs MD [Primary Care Provider] - Print Gregory (more content not included)... Normal Harjit [facility] Examination level ultrasound on 09-28-2024 Indication Detailed anatomic survey, Maternal obesity, BMI >30 Impression The patient is referred for a detailed anatomic survey. - Single, live, intrauterine . - biometry is consistent with the established gestational age. - No malformations were visualized on a complete detailed anatomic survey. - The amniotic fluid volume is normal amount. - The placenta is anterior, fundal. - The Transabdominal cervical length measures 42.7 mm with no evidence of funneling or other dynamic changes. - Not all structural malformations can be detected by ultrasound examination. Recommendations - growth every 4 weeks starting at 28 weeks. - Additional follow up as clinically indicated. Maternal Assessment Height 168 cm Height (ft) 5 ft Height (in) 6 in Physical Exam Initial weight (lb) 227 lb Initial BMI 36.64 kg/m Method Transabdominal ultrasound examination. View: Adequate visualization Taylor . Number of fetuses: 1 Dating LMP on: 05/08/2024 GA by LMP 20 w + 3 d PHYLLIS by LMP: 02/12/2025 GA by prior assessment 20 w + 3 d PHYLLIS by prior assessment: 02/12/2025 Ultrasound examination on: 09/28/2024 GA by U/S based upon: AC, BPD, Femur, HC GA by U/S 20 w + 3 d PHYLLIS by U/S: 02/12/2025 Assigned: based on the LMP, selected on 06/27/2024 Assigned GA 20 w + 3 d Assigned PHYLLIS: 02/12/2025 General Evaluation Cardiac activity present. FHR 148 bpm. movements: present. Presentation: variable Placenta: Placental site: anterior, fundal Umbilical cord: Cord vessels: 3 vessel cord. Insertion site: normal insertion Amniotic fluid: Amount of AF: normal amount. MVP 5.9 cm Growth Overview Exam date GA BPD (mm) HC (mm) AC (mm) FL (mm) HL (mm) EFW (g) 09/28/2024 20w 3d 46.8 37% 171.5 28% 165.4 80% 32.2 49% 29.6 24% 371 59% Biometry Standard BPD 46.8 mm 20w 1d 37% Hadlock OFD 60.7 mm 19w 5d 32% Nicolaides HC 171.5 mm 19w 5d 28% Trent Cerebellum tr 21.5 mm 20w 2d 67% Hill Nuchal fold 3.7 mm AC 165.4 mm 21w 4d 80% Hadlock Femur 32.2 mm 20w 1d 49% Trent Humerus 29.6 mm 19w 5d 24% Trent EFW 371 g 20w 4d 59% Hadlock EFW (lb) 0 lb EFW (oz) 13 oz EFW by: Hadlock (HC-AC-FL) Extended Carpet Sewer 7.0 mm CM 4.3 mm 23% Nicolaides Nasal bone 7.5 mm Extremities / Bony Struc FL / HC 0.19 55% Hadlock Other Structures FHR 148 bpm Anatomy Cranium: normal Lateral ventricles: normal Choroid plexus: normal Midline falx: normal Cavum septi pellucidi: normal Cerebellum: normal Cisterna magna: normal Head / Neck Vermis: normal Neck: normal Nuchal fold: normal Lips: normal Profile: normal Nose: normal Face Maxilla: normal Mandible: normal Orbits: normal Lens: normal 4-chamber view: normal RVOT view: normal LVOT view: normal 3-vessel view: normal 2-gigref-dziaepq view: normal Heart / Thorax Situs: situs solitus (normal) Aortic arch view: normal SVC: normal IVC: normal Cardiac axis: normal Rt lung: normal Lt lung: normal Diaphragm: normal Cord insertion: normal Stomach: normal Kidneys: normal Bladder: normal Genitals: normal Abdomen Abdom. wall: normal Cervical spine: normal Thoracic spine: normal Lumbar spine: normal Sacral spine: normal Arms: normal Legs: normal Rt upper arm: normal Rt forearm: normal Rt hand: normal Rt fingers: normal Lt upper arm: normal Lt forearm: normal Lt hand: normal Lt fingers: normal Rt upper leg: normal Rt lower leg: normal Rt foot: normal Lt upper leg: normal Lt lower leg: normal Lt foot: normal sex: female Wants to know sex: yes Maternal Structures Uterus / Cervix Uterus: Visualized Cervix: Visualized Approach: Transabdominal Cervical length 42.7 mm Other: Patient declined transvaginal ultrasound for cervical length. Ovaries / Tubes / Adnexa Rt ovary: Suboptimal Lt ovary: Suboptimal Performed By: Batool Ruiz RDMS Read By: Maryann Acosta M.D. MATERNAL MEDICINE [facility] Radiology Study observation (narrative) Justa askew [facility] Examination level ultrasound on 08-10-2024 Indication First trimester anatomic survey, Maternal obesity, BMI >35 Impression The patient is referred for a first trimester anatomy scan including nuchal translucency measurement as clinically indicated. - Single, live, intrauterine . - [place] rump length measurement is consistent with the established gestational age. - A qualitative screen of the nuchal translucency and other anatomic structures was unremarkable on a complete first trimester anatomic assessment. - Not all structural malformations can be detected by ultrasound examination. Maternal Structures: Right Ovary: Size 26 mm x 24 mm x 21 mm Left Ovary: Size 24 mm x 19 mm x 32 mm Recommendations - A standard anatomic survey at 16 weeks can be offered and a detailed exam at 20 weeks is recommended for increased risk. Maternal Assessment Height 168 cm Height (ft) 5 ft Height (in) 6 in Physical Exam Initial weight (lb) 227 lb Initial BMI 36.64 kg/m Method Transabdominal ultrasound examination, Color Doppler examination. View: Suboptimal view: limited by position Taylor . Number of fetuses: 1 Dating LMP on: 05/08/2024 GA by LMP 13 w + 2 d PHYLLIS by LMP: 02/12/2025 GA by prior assessment 13 w + 2 d PHYLLIS by prior assessment: 02/12/2025 Ultrasound examination on: 08/09/2024 GA by U/S based upon: CRL GA by U/S 13 w + 0 d PHYLLIS by U/S: 02/14/2025 Assigned: based on the LMP, selected on 06/27/2024 Assigned GA 13 w + 2 d Assigned PHYLLIS: 02/12/2025 General Evaluation Cardiac activity present Placenta: anterior Cord vessels: 3 vessel cord Amniotic fluid: normal amount Biometry Standard FHR 135 bpm CRL 67.5 mm 13w 0d 29% Hadlock First Trimester Anatomy Calvarium: normal Falx cerebri: normal Choroid plexus: normal Profile: normal Nasal bone: normal Retronasal triangle: normal Maxilla: normal Mandible: normal Nuchal translucency: Unremarkable Situs: normal Cardiac position: normal Cardiac axis: normal 4-chamber view: normal 4-chamber view with color: normal 9-onoeqp-ngtzutu view: normal Abdominal cord insertion: normal Stomach: normal Kidneys: normal Bladder: normal Color doppler of perivesical umbilical arteries: normal Vertebral alignment: normal Arms: normal Hands: normal Legs: normal Feet: normal Maternal Structures Uterus / Cervix Uterus: Visualized Uterus length 168 mm Uterus width 99 mm Uterus height 82 mm Uterus Vol 708.6 cm Ovaries / Tubes / Adnexa Rt ovary D1 26 mm Rt ovary D2 24 mm Rt ovary D3 21 mm Rt ovary Vol 6.8 cm Lt ovary D1 24 mm Lt ovary D2 19 mm Lt ovary D3 32 mm Lt ovary Vol 7.3 cm Performed By: Pooja Ahn RDMS Read By: Ana Laura Dumont M.D. MATERNAL MEDICINE [facility] Examination level ultrasound on 08-09-2024 Radiology Study observation (narrative) [facility] Bacteria Ur Culton Bacteria identified Cx Nom (U) CULTURE, URINE: No growth (<1,000 CFU/ml) Normal [facility] Comment on above: Performed By: #### 6 30-4 #### [facility] CLIA [id number] [address] [place] [address] [place] [address] [place] CBC W Auto Differential pane l (Bld)on 07-19-2024 Basophils (Bld) [#/Vol] 10*3/uL Normal <0.11 [facility] Comment on above: Order Comment: Speci men Type: BLOOD SPECIMEN Ordering Facility: [facility] Address: [address] [place] [address] Performed By: #### 5 7021-8 #### [facility] CLIA [id number] [address] [place] [address] [place] Basophils/100 WBC (Bld) 0.1 % Normal [facility] Comment on above: Order Comment: Speci men Type: BLOOD SPECIMEN Ordering Facility: [facility] Address: [address] [place] [address] Performed By: #### 5 7021-8 #### [facility] CLIA [id number] [address] [place] [address] [place] Differential cell count method Nom (Bld) Auto Normal [facility] Comment on above: Order Comment: Speci men Type: BLOOD SPECIMEN Ordering Facility: [facility] Address: [address] [place] [address] Performed By: #### 5 7021-8 #### [facility] CLIA [id number] [address] [place] [address] [place] Eosinophils (Bld) [#/Vol] 0.08 10*3/uL Normal <0.46 [facility] Comment on above: Order Comment: Speci men Type: BLOOD SPECIMEN Ordering Facility: [facility] Address: [address] [place] [address] Performed By: #### 5 7021-8 #### [facility] CLIA [id number] [address] [place] [address] [place] Eosinophils/100 WBC (Bld) 1.0 % Normal [facility] Comment on above: Order Comment: Speci men Type: BLOOD SPECIMEN Ordering Facility: [facility] Address: [address] [place] [address] Performed By: #### 5 7021-8 #### [facility] CLIA [id number] [address] [place] [address] [place] Erythrocyte distribution width (RBC) [Ratio] 13.0 % Normal 11.5-15.0 [facility] Comment on above: Order Comment: Speci men Type: BLOOD SPECIMEN Ordering Facility: [facility] Address: [address] [place] [address] Performed By: #### 5 7021-8 #### [facility] CLIA [id number] [address] [place] [address] [place] Hematocrit (Bld) [Volume fraction] 37.3 % Normal 36.0-46.0 [facility] Comment on above: Order Comment: Speci men Type: BLOOD SPECIMEN Ordering Facility: [facility] Address: [address] [place] [address] Performed By: #### 5 7021-8 #### [facility] CLIA [id number] [address] [place] [address] [place] Hemoglobin (Bld) [Mass/Vol] 11.7 g/dL Normal 11.5-15.5 [facility] Comment on above: Order Comment: Speci men Type: BLOOD SPECIMEN Ordering Facility: [facility] Address: [address] [place] [address] Performed By: #### 5 7021-8 #### [facility] CLIA [id number] [address] [place] [address] [place] Immature granulocytes (Bld) [#/Vol] 0.03 10*3/uL Normal <0.10 [facility] Comment on above: Order Comment: Speci men Type: BLOOD SPECIMEN Ordering Facility: [facility] Address: [address] [place] [address] Performed By: #### 5 7021-8 #### [facility] CLIA [id number] [address] [place] [address] [place] Immature granulocytes/100 WBC (Bld) 0.4 % Normal [facility] Comment on above: Order Comment: Speci men Type: BLOOD SPECIMEN Ordering Facility: [facility] Address: [address] [place] [address] Performed By: #### 5 7021-8 #### [facility] CLIA [id number] [address] [place] [address] [place] Lymphocytes (Bld) [#/Vol] 1.60 10*3/uL Normal 1.00-4.00 [facility] Comment on above: Order Comment: Speci men Type: BLOOD SPECIMEN Ordering Facility: [facility] Address: [address] [place] [address] Performed By: #### 5 7021-8 #### [facility] CLIA [id number] [address] [place] [address] [place] Lymphocytes/100 WBC (Bld) 19.8 % Normal [facility] Comment on above: Order Comment: Speci men Type: BLOOD SPECIMEN Ordering Facility: [facility] Address: [address] [place] [address] Performed By: #### 5 7021-8 #### [facility] CLIA [id number] [address] [place] [address] [place] MCH (RBC) [Entitic mass] 27.5 pg Normal 26.0-34.0 [facility] Comment on above: Order Comment: Speci men Type: BLOOD SPECIMEN Ordering Facility: [facility] Address: [address] [place] [address] Performed By: #### 5 7021-8 #### [facility] CLIA [id number] [address] [place] [address] [place] MCHC (RBC) [Mass/Vol] 31.4 g/dL Normal 30.5-36.0 [facility] Comment on above: Order Comment: Speci men Type: BLOOD SPECIMEN Ordering Facility: [facility] Address: [address] [place] [address] Performed By: #### 5 7021-8 #### [facility] CLIA [id number] [address] [place] [address] [place] MCV (RBC) [Entitic vol] 87.6 fL Normal 80.0-100.0 [facility] Comment on above: Order Comment: Speci men Type: BLOOD SPECIMEN Ordering Facility: [facility] Address: [address] [place] [address] Performed By: #### 5 7021-8 #### [facility] CLIA [id number] [address] [place] [address] [place] Monocytes (Bld) [#/Vol] 0.50 10*3/uL Normal <0.87 [facility] Comment on above: Order Comment: Speci men Type: BLOOD SPECIMEN Ordering Facility: [facility] Address: [address] [place] [address] Performed By: #### 5 7021-8 #### [facility] CLIA [id number] [address] [place] [address] [place] Monocytes/100 WBC (Bld) 6.2 % Normal [facility] Comment on above: Order Comment: Speci men Type: BLOOD SPECIMEN Ordering Facility: [facility] Address: [address] [place] [address] Performed By: #### 5 7021-8 #### [facility] CLIA [id number] [address] [place] [address] [place] Neutrophils (Bld) [#/Vol] 5.85 10*3/uL Normal 1.45-7.50 [facility] Comment on above: Order Comment: Speci men Type: BLOOD SPECIMEN Ordering Facility: [facility] Address: [address] [place] [address] Performed By: #### 5 7021-8 #### [facility] CLIA [id number] [address] [place] [address] [place] Neutrophils/100 WBC (Bld) 72.5 % Normal [facility] Comment on above: Order Comment: Speci men Type: BLOOD SPECIMEN Ordering Facility: [facility] Address: [address] [place] [address] Performed By: #### 5 7021-8 #### [facility] CLIA [id number] [address] [place] [address] [place] Nucleated RBC (Bld) [#/Vol] 10*3/uL Normal <0.01 [facility] Comment on above: Order Comment: Speci men Type: BLOOD SPECIMEN Ordering Facility: [facility] Address: [address] [place] [address] Performed By: #### 5 7021-8 #### [facility] CLIA [id number] [address] [place] [address] [place] Nucleated RBC/100 WBC (Bld) [Ratio] 0.0 /[address] [facility] Comment on above: Order Comment: Speci men Type: BLOOD SPECIMEN Ordering Facility: [facility] Address: [address] [place] [address] Performed By: #### 5 7021-8 #### [facility] CLIA [id number] [address] [place] [address] [place] Platelet mean volume (Bld) [Entitic vol] 10.9 fL Normal 9.0-12.7 [facility] Comment on above: Order Comment: Speci men Type: BLOOD SPECIMEN Ordering Facility: [facility] Address: [address] [place] [address] Performed By: #### 5 7021-8 #### [facility] CLIA [id number] [address] [place] [address] [place] Platelets (Bld) [#/Vol] 314 10*3/uL Normal 150-400 [facility] Comment on above: Order Comment: Speci men Type: BLOOD SPECIMEN Ordering Facility: [facility] Address: [address] [place] [address] Performed By: #### 5 7021-8 #### [facility] CLIA [id number] [address] [place] [address] [place] RBC (Bld) [#/Vol] 4.26 10*6/uL Normal 3.90-5.20 [facility] Comment on above: Order Comment: Speci men Type: BLOOD SPECIMEN Ordering Facility: [facility] Address: [address] [place] [address] Performed By: #### 5 7021-8 #### [facility] CLIA [id number] [address] [place] [address] [place] WBC (Bld) [#/Vol] 8.07 10*3/uL Normal 3.70-11.00 [facility] Comment on above: Order Comment: Speci men Type: BLOOD SPECIMEN Ordering Facility: [facility] Address: [address] [place] [address] Performed By: #### 5 7021-8 #### [facility] CLIA [id number] [address] [place] [address] [place] HBV surface Ag Ser Qlon 04- HBV surface Ag Ql (S) Negative Normal Negative [facility] Comment on above: Order Comment: Speci men Type: BLOOD SPECIMEN Ordering Facility: [facility] Address: [address] [place] [address] Performed By: #### 5 195-3 #### [facility] CLIA [id number] [address] [place] [address] [place] HCV Ab Ser Qlon 07-19-2024 HCV Ab Ql (S) Negative Normal Negative [facility] Comment on above: Order Comment: Speci men Type: BLOOD SPECIMEN Ordering Facility: [facility] Address: [address] [place] [address] Result Comment: The result suggests no evidence of infection with Hepatitis C virus. Should recent infection be suspected, repeat testing may be considered 4-6 weeks after this draw. Performed By: #### 1 6128-1 #### [facility] CLIA [id number] [address] [place] [address] [place] HIV 1+2 Ab IA Qlon HIV 1 and 2 Ab IA.rapid Nom (S/P/Bld) [facility] Comment on above: Order Comment: Speci men Type: BLOOD SPECIMEN Ordering Facility: [facility] Address: [address] [place] [address] Result Comment: Test not indicated. Performed By: #### 3 1201-7, 40744-8 #### [facility] CLIA [id number] [address] [place] [address] [place] HIV 1+2 Ab+HIV1 p24 Ag IA Ql Non-Reactive Normal Nonreactive [facility] Comment on above: Order Comment: Speci men Type: BLOOD SPECIMEN Ordering Facility: [facility] Address: [address] [place] [address] Performed By: #### 3 1201-7, 42885-3 #### [facility] CLIA [id number] [address] [place] [address] [place] HIV immunoassay testing algorithm interpretation (S/P/Bld) [Interp] [facility] Comment on above: Order Comment: Speci men Type: BLOOD SPECIMEN Ordering Facility: [facility] Address: [address] [place] [address] Result Comment: No e vidence of HIV-1 or HIV-2 infection. Should recent infection be suspected, repeat testing may be considered 2-3 weeks after this draw. [place] Rev. Code 3701.243(E): This information has been disclosed to you from confidential records protected from disclosure by state law. ???You shall make no further disclosure of this information without the specific, written, and informed release of the individual to whom it pertains or as otherwise permitted by state law. A general authorization for the release of medical or other information is not sufficient for the purpose of the release of HIV test results or diagnoses. Performed By: #### 3 1201-7, 09542-4 #### [facility] CLIA [id number] [address] [place] [address] [place] HbA1c (Bld)on 07-19-2024 Average glucose Estimated from glycated hemoglobin (Bld) [Mass/Vol] 117 mg/dL [facility] Comment on above: Order Comment: Speci men Type: BLOOD SPECIMEN Ordering Facility: [facility] Address: [address] [place] [address] Result Comment: eAG: (Estimated average glucose) is a calculated value from HgbA1c and is resources representative of the average blood glucose level in the last 2-3 month period. Performed By: #### 5 5454-3 #### [facility] CLIA [id number] [address] [place] [address] [place] HbA1c (Bld) [Mass fraction] 5.7 % Normal 4.3-6.1 [facility] Comment on above: Order Comment: Romelia sanchez Type: BLOOD SPECIMEN Ordering Facility: [facility] Address: [address] [place] [address] Result Comment: [place] Diabetes Association guidelines indicate that patients with HgbA1c in the range 5.7-6.4% are at increased risk for development of diabetes, and intervention by lifestyle modification may be beneficial. HgbA1c greater or equal to 6.5% is considered diagnostic of diabetes. Performed By: #### 5 5454-3 #### [facility] CLIA [id number] [address] [place] [address] [place] [id number] PLUSon 07-19-2024 Cell-free DNA./Cell-free DNA.total Dosage of chromosome-specific cfDNA (cfDNA) [Molar fraction] 13% Normal [facility] Comment on above: Order Comment: Romelia sanchez Type: BLOOD SPECIMEN Ordering Facility: [facility] Address: [address] [place] [address] Performed By: #### M AT21 #### [facility] CLIA [id number] [address] [place] [address] Chr 13+18+21+X+Y aneuploidy Dosage of chromosome-specific cfDNA Ql (cfDNA) Negative Normal [facility] Comment on above: Order Comment: Romelia sanchez Type: BLOOD SPECIMEN Ordering Facility: [facility] Address: [address] [place] [id number] Performed By: #### M AT21 #### [facility] CLIA [id number] [address] [place] [address] Chr 21 trisomy Dosage of chromosome-specific cfDNA Ql (cfDNA) Negative [facility] Comment on above: Order Comment: Speci men Type: BLOOD SPECIMEN Ordering Facility: [facility] Address: [address] [place] [address] Performed By: #### M AT21 #### [facility] CLIA [id number] [address] [place] [address] Chr X and Y aneuploidy risk Sequencing Ql (cfDNA) [Interp] Not detected [facility] Comment on above: Order Comment: Speci men Type: BLOOD SPECIMEN Ordering Facility: [facility] Address: [address] [place] [address] Result Comment: Not Detected Not Detected Performed By: #### M AT21 #### [facility] CLIA [id number] [address] [place] [address] Citation Osei (Reference lab test) Comment [facility] Comment on above: Order Comment: Speci men Type: BLOOD SPECIMEN Ordering Facility: [facility] Address: [address] [place] [address] Result Comment: 1. P herminio DURAN, et al. Julita Med. 2012;14(3):296-305. 2. Angelique CROWDER, et al. Prenat Diag. 2013;33(6):591-597. 3. Patrice C, et al. Clin Chem. 2015 Apr;61(4):608-616. 4. Shreyas DURAN, et al. Julita Med. 2011;13(11):913-920. 5. ACOG/SMFM Practice Bulletin No. 226, Jan 2020. Performed By: #### M AT21 #### [facility] CLIA [id number] [address] [place] [address] Gestational age Estimated from conception date Taylor [facility] Comment on above: Order Comment: Speci men Type: BLOOD SPECIMEN Ordering Facility: [facility] Address: [address] [place] [address] Performed By: #### M AT21 #### [facility] CLIA [id number] [address] [place] [address] GESTATIONALAGE AGE > OR = 9W Yes [facility] Comment on above: Order Comment: Romelia sanchez Type: BLOOD SPECIMEN Ordering Facility: [facility] Address: [address] [place] [address] Performed By: #### M AT21 #### [facility] CLIA [id number] [address] [place] [address] Laboratory comment Osei (Report) Comment [facility] Comment on above: Order Comment: Romelia sanchez Type: BLOOD SPECIMEN Ordering Facility: [facility] Address: [address] [place] [address] Result Comment: The MaterniT(R) 21 PLUS laboratory-developed test (LDT) analyzes circulating cell-free DNA from a maternal blood sample. This test is used for screening purposes and not diagnostic. Clinical correlation is recommended. Validation data on twin pregnancies is limited and the ability of this test to detect aneuploidy in higher multiple gestations has not yet been validated. Performed By: #### M AT21 #### [facility] CLIA [id number] [address] [place] [id number] activities director name Nom (Provider) Comment [facility] Comment on above: Order Comment: Romelia sanchez Type: BLOOD SPECIMEN Ordering Facility: [facility] Address: [address] [place] [address] Result Comment: This specimen showed an expected representation of chromosome 21, 18 and 13 material. Clinical correlation is suggested. Comment Elton Castaneda MD, PhD, Director, [employer] Performed By: #### M AT21 #### [facility] CLIA [id number] [address] [place] [address] LIMITATIONS OF THE TEST Comment [facility] Comment on above: Order Comment: Romelia sanchez Type: BLOOD SPECIMEN Ordering Facility: [facility] Address: [address] [place] [address] Result Comment: Arlene brizuela the results of these tests are highly reliable, discordant results, including inaccurate sex prediction, may occur due to placental, maternal, or mosaicism or neoplasm; vanishing twin; prior maternal organ transplant; or other causes. These tests are screening tests and not diagnostic; they do not replace the accuracy and precision of diagnosis with CVS or amniocentesis. A patient with a positive test result should be referred for genetic counseling and offered invasive diagnosis for confirmation of test results.[5] The results of this testing, including the benefits and limitations, should be discussed with a qualified healthcare provider. management decisions, including termination of the , should not be based on the results of these tests alone. The healthcare provider is responsible for the use of this information in the management of their patient. Sex chromosomal aneuploidies are not reportable for known multiple gestations. A negative result does not ensure an unaffected nor does it exclude the possibility of other chromosomal abnormalities or defects which are not a part of these tests. An uninformative result may be reported, the causes of which may include, but are not limited to, insufficient sequencing coverage, noise or artifacts in the region, amplification or sequencing bias, or insufficient fraction. These tests are not intended to identify pregnancies at risk for neural tube defects or ventral wall defects. Testing for whole chromosome abnormalities (including sex chromosomes) and for subchromosomal abnormalities could lead to the potential discovery of both and maternal genomic abnormalities that could have major, minor, or no, clinical significance. Evaluating the significance of a positive or a non-reportable result may involve both invasive testing and additional studies on the mother. Such investigations may lead to a diagnosis of maternal chromosomal or subchromosomal abnormalities, which on occasion may be associated with benign or malignant maternal neoplasms. These tests may not accurately identify triploidy, balanced rearrangements, or the precise location of subchromosomal duplications or deletions; these may be detected by diagnosis with CVS or amniocentesis. The ability to report results may be impacted by maternal BMI, maternal weight, maternal systemic lupus erythematosus (SLE) and/or by certain pharmaceutical agents such as low molecular weight heparin (for example: Lovenox(R), Xaparin(R), Clexane(R) and Fragmin(R)). Performed By: #### M AT21 #### [facility] CLIA [id number] [address] [place] [address] Monosomy X risk Dosage of chromosome-specific cfDNA Ql (Plasma cell-free+WBC DNA) [Interp] Not detected Normal [facility] Comment on above: Order Comment: Speci men Type: BLOOD SPECIMEN Ordering Facility: [facility] Address: [address] [place] [address] Performed By: #### M AT21 #### [facility] CLIA [id number] [address] [place] [address] NEGATIVE PREDICTIVE VALUE Note [facility] Comment on above: Order Comment: [facility] Type: BLOOD SPECIMEN Ordering Facility: [facility] Address: [address] [place] [address] Result Comment: The Negative Predictive Value (NPV) for trisomy 21, 18, and 13 is greater than 99%. The NPV for SCA and ESS cannot be calculated as SCA and ESS are only reported when an abnormality is detected. Performed By: #### M AT21 #### [facility] CLIA [id number] [address] [place] [address] PERFORMANCE CHARACTERISTICS Note [facility] Comment on above: Order Comment: Romelia [facility] Type: BLOOD SPECIMEN Ordering Facility: [facility] Address: [address] [place] [address] Result Comment: ! Sex ! Accuracy: 99.4% ! ! ! ! Region (associated syndrome) ! Est. Sens# ! Est. Spec ! ! ! ! Trisomy 21 (Down Syndrome) ! 99.1% ! 99.9% ! ! ! ! Trisomy 18 (Norris Syndrome) ! >99.9% ! 99.6% ! ! ! ! Trisomy 13 (Patau Syndrome) ! 91.7% ! 99.7% ! ! ! ! Sex Chromosome Aneuploidies## ! 96.2% ! 99.7% ! ! ! * As reported in [facility] database nstd37 [https://www.ncbi.nlm.nih.gov/dbvar/studies/nstd37/ ] # Estimated Sensitivity. Sensitivity estimated across the observed size distribution of each syndrome [per [facility] database nstd37] and across the range of fractions observed in routine clinical NIPT. Actual sensitivity can also be influenced by other factors such as the size of the event, total sequence counts, amplification bias, or sequence bias. ## Taylor gestation only. Performed By: #### M AT21 #### [facility] CLIA [id number] [address] [place] [address] POSITIVE PREDICTIVE VALUE N/A [facility] Comment on above: Order Comment: Romelia sanchez Type: BLOOD SPECIMEN Ordering Facility: [facility] Address: [address] [place] [address] Performed By: #### M AT21 #### [facility] CLIA [id number] [address] [place] [address] Reference Lab Test Method Comment [facility] Comment on above: Order Comment: Romelia sanchez Type: BLOOD SPECIMEN Ordering Facility: [facility] Address: [address] [place] [address] Result Comment: See Notes Circulating cell-free DNA was purified from the plasma component of maternal blood. The extracted DNA was then converted into a genomic DNA library for aneuploidy analysis of chromosomes 21, 18, and 13 via next generation sequencing.[1] Optional findings based on the test order include sex chromosome aneuploidy (SCA)[2], and enhanced sequencing series (ESS)[3], which will only be reported on as an additional finding when an abnormality is detected. SCA testing includes information on X and Y representation, while ESS testing includes deletions in selected regions (22q, 15q, 11q, 8q, 5p, 4p, 1p) and trisomy of chromosomes 16 and 22. Performed By: #### M AT21 #### [facility] CLIA [id number] [address] [place] [address] Service comment (Unsp spec) [Interp] Comment [facility] Comment on above: Order Comment: Speci men Type: BLOOD SPECIMEN Ordering Facility: [facility] Address: [address] [place] [address] Result Comment: See Notes [employer]. is a subsidiary of [employer], using the brand [employer]. This test was developed and its performance characteristics determined by [employer]. It has not been cleared or approved by the Food and Drug Administration. This laboratory is certified under the Clinical Laboratory Improvement Amendments (CLIA) as qualified to perform high complexity clinical laboratory testing and accredited by the [employer] (CAP). If there is future clinical need for adding MaterniT GENOME testing, this specimen will be available until term. [facility] samples will not be retained beyond 60 days. [facility] patients will have to send a new sample for re-sequencing ([facility] Test Code: 630076). Performed By: #### M AT21 #### [facility] CLIA [id number] [address] [place] [address] Sex Dosage of chromosome-specific cfDNA Nom (cfDNA) Comment [facility] Comment on above: Order Comment: Speci men Type: BLOOD SPECIMEN Ordering Facility: [facility] Address: [address] [id number] Result Comment: Cons istent with Female Performed By: #### M AT21 #### [facility] CLIA [id number] [address] [place] [address] Test performance information Osei (Unsp spec) Comment [facility] Comment on above: Order Comment: Romelia sanchez Type: BLOOD SPECIMEN Ordering Facility: [facility] Address: [address] [place] [address] Result Comment: The performance characteristics of the MaterniT(R) 21 PLUS laboratory-developed test (LDT) have been determined in a clinical validation study with women at increased risk for chromosomal aneuploidy.[1-4] Performed By: #### M AT21 #### [facility] CLIA [id number] [address] [place] [address] Trisomy 13 risk Dosage of chromosome-specific cfDNA Ql (cfDNA) [Interp] Negative [facility] Comment on above: Order Comment: Romelia sanchez Type: BLOOD SPECIMEN Ordering Facility: [facility] Address: [address] [place] [address] Performed By: #### M AT21 #### [facility] CLIA [id number] [address] [place] [address] Trisomy 18 risk Dosage of chromosome-specific cfDNA Ql (Plasma cell-free+WBC DNA) [Interp] Negative [facility] Comment on above: Order Comment: Romelia sanchez Type: BLOOD SPECIMEN Ordering Facility: [facility] Address: [address] [place] [address] Performed By: #### M AT21 #### [facility] CLIA [id number] [address] [place] [address] RUBELLA IGG ANTIBODYon 07-19 RUBELLA IGG AB, QUAL Positive Normal Positive [facility] Comment on above: Order Comment: Romelia sanchez Type: BLOOD SPECIMEN Ordering Facility: [facility] Address: [address] [place] [address] Result Comment: The result suggests recent or past exposure to Rubella virus or history of Rubella vaccination. Positive result may also be seen due to presence of passively-transferred antibodies. Please correlate with patient's history. Performed By: #### R UBIGG #### [facility] CLIA [id number] [address] [place] [address] [place] Reagin and Treponema pallidu m IgG and IgM [Interp]on 07-19-2024 T. pallidum IgG+IgM IA Ql (S) Non-Reactive Normal Nonreactive [facility] Comment on above: Order Comment: Speci men Type: BLOOD SPECIMEN Ordering Facility: [facility] Address: [address] [place] [address] Performed By: #### M AT21 #### [facility] CLIA [id number] [address] [place] [address] Reagin+T pallidum IgG+IgM Se rPl-Impon 07-19-2024 Reagin and Treponema pallidum IgG and IgM [Interp] Cannot exclude recent Treponemal infection if specimen collected within 7-10 days after appearance of suspect lesions or 2-3 weeks after an exposure. Clinical correlation is required. [facility] Comment on above: Order Comment: Speci men Type: BLOOD SPECIMEN Ordering Facility: [facility] Address: [address] [place] [address] Performed By: #### M AT21 #### [facility] CLIA [id number] [address] [place] [address] TYPE + SCREEN PRENATALon ABO AB [facility] Comment on above: Order Comment: Speci men Type: BLOOD SPECIMEN Ordering Facility: [facility] Address: [address] [place] [address] Performed By: #### T SPN #### [facility] CLIA [id number] [address] [place] [address] [place] Rh Nom (Bld) Positive [facility] Comment on above: Order Comment: Speci men Type: BLOOD SPECIMEN Ordering Facility: [facility] Address: [address] [place] [address] Performed By: #### T SPN #### [facility] CLIA [id number] [address] [place] [address] [place] TYPE AND SCREEN EXPIRATION 07/22/2024 23:[address] [facility] Comment on above: Order Comment: Speci men Type: BLOOD SPECIMEN Ordering Facility: [facility] Address: [address] [place] [id number] Performed By: #### T SPN #### [facility] CLIA [id number] [address] [place] [address] [place] Miracle 06-30-2024 SVETLANAN Telephone (OBGYWM) ---- LAURA CASTELLANOS ([id number]) 1995 F [facility] [place] Date Time Provider Department 06/30/24 JULIA HESTER During your visit today, we recorded the following information about you: Bozena Patton RN 06/30/2024 8:14 AM Signed +UTI, Keflex sent. Julia Hester APRN.Bozena Junior RN 06/30/2024 8:14 AM Signed Left message to call office. NIKHIL Lee Jennifer, RN 06/30/2024 10:02 AM Signed Patient notified. Regina Benitez RN Allergies As of Date: 06/30/2024 Noted Allergy Reaction CHLORHEXIDINE 05/24/2023 9 - Itching LATEX 06/22/2024 2 - Rash Date Reviewed: 06/22/2024 Reviewed by: Katiana Duncan MA - Fully Assessed Reason for Visit: Results [95] Prescriptions as of 06/30/2024 - cephALEXin (KEFLEX) 500 mg capsule Take 1 capsule by mouth four times daily for 5 days. - aspirin, enteric coated (ECOTRIN LOW STRENGTH) 81 mg EC tablet Take 1 tablet by mouth once daily. - vit37/iron/folic acid (PRENATA ORAL) Take 2 capsules by mouth once daily. - coenzyme Q10 (CO Q-10) 100 mg cap capsule Take 200 mg by mouth once daily. - cholecalciferol, vitamin D3, (VITAMIN D3 ORAL) Take 2,000 Units by mouth once daily. - calcium carbonate/vitamin D3 (CALCIUM 600 + D ORAL) Take 1 capsule by mouth once daily. 200 international unit(s) of Vitamin D - Cyanocobalamin (VITAMIN B-12) 1,000 mcg TbER Take 1 tablet by mouth once daily. - progesterone vaginal suppository 200 mg (CPD) Use 200 mg vaginally daily at bedtime. Unwrap and insert as directed. - metFORMIN ER (GLUCOPHAGE XR) 500 mg 24 hr tablet Take 2 tablets by mouth two times a day with meals. 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 saprophyticus urine isolates is not performed because uncomplicated UTIs respond to urine concentrations of agents commonly used (e.g. Nitrofurantoin, TMP/SMX, or a quinolone). Normal [facility] Comment on above: Performed By: #### 7 3752-8, 99630-9, 2276-4 #### [facility] CLIA [id number] [address] [place] [address] [place] C. trachomatis+N. gonorrhoea e DNA ANGELIA+probe Ql (Unsp spec)on 06-27-2024 C. trachomatis rRNA ANGELIA+probe Ql (Unsp spec) Not detected Normal Not detected [facility] Comment on above: Order Comment: Speci men Type: BLOOD SPECIMEN Ordering Facility: [facility] Address: [address] [place] [address] Performed By: #### 7 3752-8, 47479-8, 2276-4 #### [facility] CLIA [id number] [address] [place] [address] [place] N. 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 Confirmation of cardiac activity. Estimation of gestational age Impression cardiac activity is visualized, CRL is appropriate for clinical dates, corresponding to PHYLLIS 02/12/25 Recommendations Follow up for 1st Trimester Anatomy with Nuchal Translucency as clinically indicated if desired. Method Transvaginal ultrasound examination. View: Adequate visualization Taylor . Number of embryos: 1 Dating LMP on: 05/08/2024 GA by LMP 7 w + 1 d PHYLLIS by LMP: 02/12/2025 Ultrasound examination on: 06/27/2024 GA by U/S based upon: CRL GA by U/S 6 w + 5 d PHYLLIS by U/S: 02/15/2025 Assigned: based on the LMP, selected on 06/27/2024 Assigned GA 7 w + 1 d Assigned PHYLLIS: 02/12/2025 Biometry Standard FHR 128 bpm CRL 8.3 mm 6w 5d 16% Hadlock Assessment Gestational sac: visualized Location: intrauterine Yolk sac: visualized Embryo: visualized CRL 8.3 mm 6w 5d 16% Hadlock Cardiac activity: present FHR 128 bpm General Evaluation Cardiac activity present. FHR 128 bpm Performed By: Julia Hester CNP Read By: Julia Hester CNP MATERNAL MEDICINE [facility] Radiology Study observation (narrative) [facility] TRICHOMONAS VAGINALIS NAATon 06-27-2024 T. vaginalis DNA ANGELIA+probe Ql (Unsp spec) Not detected Normal Not detected [facility] Comment on above: Order Comment: Speci men Type: BLOOD SPECIMEN Ordering Facility: [facility] Address: [address] [place] [address] Performed By: #### 7 3752-8, 78667-5, 2276-4 #### [facility] CLIA [id number] [address] [place] [address] [place] Estradiol SerPl-mCncon 02-04 E2 [Mass/Vol] 42 pg/mL Normal See comment [facility] Comment on above: Order Comment: Speci laura Type: BLOOD SPECIMEN Ordering Facility: External Submitter Address: , , Result Comment: Foll icular Phase (-12 to -4 days): 19.5 - 144.2 pg/mL Midcycle Phase (-3 to +2 days): 63.9 - 356.7 pg/mL Luteal Phase (+4 to +12 days): 55.8 - 214.2 pg/mL Post-menopausal females: 0 - 32.2 pg/mL Performed By: #### 2 243-4 #### [facility] CLIA [id number] [address] [place] [address] [place] FSH SerPl-aCncon 02-05-2024 Follitropin Qn 6.5 m[IU]/mL Normal See Comment [facility] Comment on above: Order Comment: Speci laura Type: BLOOD SPECIMEN Ordering Facility: External Sub[facility] Address: , , Result Comment: Asim zaldivar range: Follicular: 2.5 to 10.2 mIU/mL Midcycle: 3.4 to 33.4 mIU/mL Luteal: 1.5 to 9.1 mIU/mL : <0.3 mIU/mL Post Deborah: 23.0 to 116.3 mIU/mL Reference range: Follicular: 3.5-12.5 mIU/mL Ovulation: 4.7-21.5 mIU/mL Luteal: 1.7-7.7 mIU/mL Postmenopausal: 25.8-134.8 mIU/mL Performed By: #### 1 5067-2, 19528-0 #### [facility] CLIA [id number] [address] [place] [address] [place] LH SerPl-aCncon 02-05-2024 Lutropin Qn 1.3 m[IU]/mL Normal See Chart [facility] Comment on above: Order Comment: Speci men Type: BLOOD SPECIMEN Ordering Facility: External Submitter Address: , , Result Comment: Refe rence range: Follicular: 1.9 - 12.5 mIU/mL Midcycle: 8.7 - 76.3 mIU/mL Luteal: 0.5 - 16.9 mIU/mL : 0.0 - 1.5 mIU/mL Post Menopausal: 15.9 - 54.0 mIU/mL Performed By: #### 1 5067-2, 80822-1 #### [facility] CLIA [id number] [address] [place] [address] [place] CHROM ANDRIY PERIPHon 024 BLOOD CYTOGENETICS CHROMO [facility] Comment on above: Order Comment: Speci men Type: BLOOD SPECIMEN Ordering Facility: External Submitter Address: , , Result Comment: Jhon ovalle Accession Number: [id number] Doctor: CL BLANC Clinical diagnosis: Symptomatic premature menopause, Encounter of female for testing for genetic disease carrier status for procreative management Specimen Type: Peripheral blood Received Date: 02/03/2024 Number of cells counted: 20 Number of cells analyzed: 5 Number of cells karyotyped: 5 Banding resolution: 550 Banding method: G-banding DIAGNOSIS: 46,XX INTERPRETATION: Normal, female karyotype COMMENT: Cytogenetic analysis on synchronized and unsynchronized PHA- stimulated, peripheral blood cultures showed a normal, female karyotype (46,XX). There was no significant numerical chromosome abnormality and no structural change detected within the limits of resolution. As reviewed by Antonino Clement, PhD, FACMG Performed by [facility] Molecular Pathology and Cytogenomics ([id number]), Division of Laboratory Medicine Ricardo Cloud [facility], [facility] [id number] [place] [address]. [place] [address] Toll free: Performed By: #### C HRBLD #### [facility] CLIA [id number] [address] [place], [place] [address] [place] [address] [facility] VARICELLA ZOSTER IGG AB [CCF ]on 01-17-2024 RESULT CRITICAL? NO Normal [facility] Comment on above: Performed By: #### 2 19044 #### [facility],[address] [place] [address] Performed By: #### 2 10586 #### [facility],[address] [place], [place] [id number] 17-HYDROXYPROGESTERONE, SERU M[CCL]on 01-16-2024 HydroxyProgesterone 66.63 ng/dL Normal <=206.00 [facility] Comment on above: Result Comment: INTE RPRETIVE INFORMATION for 17-Hydroxyprogesterone in females: Follicular 15 to 70 ng/dL Luteal 35 to 290 ng/dL REFERENCE INTERVAL: 17-Hydroxyprogesterone Qnt, HPLC-MS/MS Access complete set of age- and/or gender-specific reference intervals for this test in the [employer] Test Directory ([employer]). This test was developed and its performance characteristics determined by [facility]. It has not been cleared or approved by the US Food and Drug Administration. This test was performed in a CLIA certified laboratory and is intended for clinical purposes. Performed By: [facility] [address] [place] [id number] Application Development Team Lead: Karl Olivares MD, PhD CLIA Number: [id number] [place] [id number] Isidro Broussard III, M.D. [id number] Performed By: #### 2 [address] #### [address] [address] ANTI MULLERIAN HORMONE [CCL] on 01-16-2024 Anti Ritchie Hormone 0.30 ng/mL Low 0.58-8.13 [facility] Comment on above: Result Comment: [place] [id number] Isidro Broussard III, M.D. [id number] Performed By: #### 2 [address]122 #### [address] [address] HEP B SURFACE AG [CCL]on Hepatitis B Surf. Ag Negative Normal Negative [facility] Comment on above: Result Comment: [address] [address] Isidro Broussard III, M.D. [id number] Performed By: #### 2 95922 #### [address] [address] HEPATITIS C AB IA W/CONFIRM [CCL]on 01-16-2024 Hepatitis C Ab IA Negative Normal Negative [facility] Comment on above: Result Comment: The result suggests no evidence of active infection with Hepatitis C virus. Should recent infection be suspected, repeat testing may be considered 4-6 weeks after this draw. [place] [id number] Isidro Broussard III, M.D. [id number] Performed By: #### 2 17021 #### [address] [address] RPR [CCL]on 01-16-2024 Reagin Ab RPR Ql (S) Non-Reactive Normal Nonreactive [facility] Comment on above: Result Comment: Rapi d plasma reagin (RPR) test detects non-treponemal antibodies. RPR may be reactive in a variety of infectious and non-infectious conditions. Correlation with clinical picture and with treponemal antibody results is required for final interpretation. [place] [id number] Isidro Broussard III, M.D. [id number] Performed By: #### 2 45624 #### [address] [address] RUBELLA IgG ANTIBODY [CCL]on 01-16-2024 Rubella IgG Ab, Qual Positive Normal Positive [facility] Comment on above: Result Comment: The result suggests recent or past exposure to Rubella virus or history of Rubella vaccination. Positive result may also be seen due to presence of passively-transferred antibodies. Please correlate [place] [address] Isidro Broussard III, M.D. [id number] Performed By: #### 2 56886 #### [address] [address] TESTOSTERONE [CCL]on 024 Testosterone [Mass/Vol] 26 ng/dL Normal <40 J [facility] Comment on above: Result Comment: [place] [address] Isidro Broussard III, M.D. [id number] Performed By: #### 2 32410 #### [address] [address] VARICELLA ZOSTER IGG AB [CCF ]on 01-16-2024 V. zoster IgG, Qual Positive Normal Positive [facility] Comment on above: Result Comment: The result suggests recent or past exposure to Varicella-Zoster virus or chickenpox vaccination or zoster vaccination. Positive result may also be seen due to presence of passively-transferred antibodies. Please correlate with [place] [address] Isidro Broussard III, M.D. [id number] Performed By: #### 2 88130 #### [address] [address] HIV 1/2 COMBO (AG/AB) [CCL]o n 01-15-2024 HIV 1/2 COMBO (AG/AB) [CCL] Normal [facility] Comment on above: Result Comment: _HIV 1/2 COMBO (AG/AB) [CCL]_ SEE SEPARATE REPORT Performed By: #### 2 58548 #### [address] [address] DHEA-S [CCL]on 01-14-2024 DHEA-S 362.9 ug/dL Abnormal 98.8 - 340.0 ug/dL [facility] Comment on above: Result Comment: Refe rence ranges are age and gender specific. For additional information, reference range tables can be found in the laboratory test directory. The normal values are based on the following source: Dehydroepiandrosterone sulfate (DHEA S) [package insert V 17.0 Italian]. [facility], [place], [place]: November 2012. [facility] [email or web address] [address] [place] [address] Isidro Broussard III, M.D. [id number] Performed By: #### 2 02602 #### [address] [address] GC/CHLAM AMPLIFICATION [CCL] on 01-14-2024 SEND TO IC? NO Normal [facility] Comment on above: Performed By: #### 2 40153 #### [address] [address] Chlamydia Amplification Negative Normal Nega tive for Chlamydia tr [facility] Comment on above: Result Comment: For screening asymptomatic women, a vaginal swab specimen(APTIMA vaginal swab [id number]) is optimal. Urine specimens have reduced sensitivity for Chlamydia trachomatis or Neisseria gonorrhoeae infection in female patients without symptoms. SOURCE: Urine (Nonspecific) [facility] [address] [place] [address] Isidro Broussard III, M.D. [id number] Performed By: #### 2 91081 #### [facility],[address] [place], [place] [id number] GCAMP Negative Normal Negative for Neisseria go [facility] Comment on above: Performed By: #### 2 46733 #### [facility],[address] [place], [place] [id number] BB TYPE & SCREENon 4 ABO AB Normal [facility] Comment on above: Performed By: #### 2 37669 #### [facility],[address] [place] [address] ANTIBODY SCR Negative Normal [facility] Comment on above: Performed By: #### 2 87472 #### [facility],[address] [place] [address] BB TYPE & SCREEN Normal [facility] Comment on above: Result Comment: TYPE , Rh, AND SCREEN Performed By: #### 2 88249 #### [facility],[address] [place] [address] Rh Nom (Bld) Positive Normal [facility] Comment on above: Performed By: #### 2 81082 #### [facility],[address] [place], [place] [id number] HEMOGLOBIN A1C (POM)on 01-12 Glucose [Mass/Vol] 116.9 mg/dL High 0.0 - 0.0 [facility] Comment on above: Result Comment: BLDo HEMOGLOBIN A1C REFERENCE RANGESBLDo Suggested Diagnosis HbA1c(%) HbA1C (mmol/mol Diabetic >/=6.5 >/=48 Prediabetes 5.7 - 6.4 39 - 47 Normal <5.7 <39 Performed By: #### 2 29655 #### [facility],[address] [place], [place] [id number] HbA1c (Bld) [Mass fraction] 5.7 % Normal 0.0 - 6.5 % [facility] Comment on above: Performed By: #### 2 66852 #### [facility],[address] [place] [address] Laboratory - Blood bankon ABO group Nom (Bld) AB Normal [email or web address]; [facility] Work Phone: Blood group antibody screen Ql Negative Normal [email or web address]; [facility]. Work Phone: Laboratory - Chemistry and C hemistry - challengeon 01-13-2024 Average glucose Estimated from glycated hemoglobin (Bld) [Mass/Vol] 116.9 mg/dL Abnormal 0.0 - 0.0 mg/dL [facility]; [facility]. Work Phone: Testosterone [Mass/Vol] 26 ng/dL Normal E [facility].; [facility]. Work Phone: Laboratory - Microbiology an d Antimicrobial susceptibilityon 01-13-2024 Reagin Ab RPR Ql (S) Non-Reactive Normal [email or web address]; [facility] Work Phone: No Panel Informationon 01-12 Anti Ritchie Hormone 0.30 ng/mL Abnormal 0.58 - 8 .13 ng/mL [email or web address]; [facility]. Work Phone: BB TYPE Normal [facility] Hospital[facility]; [facility]. Work Phone: Chlamydia Amplification Negative Normal E [facility].; [facility]. Work Phone: GCAMP Negative Normal [facility] [email or web address]; [facility] [employer] Work Phone: Hepatitis B Surf. Ag Negative Normal [facility].; [facility]. Work Phone: Hepatitis C Ab IA Negative Normal [facility].; [facility] [employer]. Work Phone: HIV 1/2 COMBO (AG/AB) [CCL] [facility].; [facility]. Work Phone: HydroxyProgesterone 66.63 ng/dL Normal [facility].; [facility]. Work Phone: RESULT CRITICAL? NO Normal [facility].; [facility]. Work Phone: Rubella IgG Ab, Qual Positive [facility].; [facility]. Work Phone: SEND TO IC? NO [facility].; [facility]. Work Phone: V. zoster IgG, Qual Positive [facility].; [facility]. Work Phone: TSHon 01-13-2024 TSH Qn 0.83 m[IU]/L Normal 0.35 - 3.74 {uIU/ml} [facility] Comment on above: Performed By: #### 2 96433 #### [facility],[address] [place] [address] Urinalysis complete panel (U )Ordered By: Myah Schmitz on 09-17-2023 Bacteria LM.HPF (Urine sed) [#/Area] Negative Negative /HPF [facility] Bilirubin Ql (U) Negative Negative [facility] Clarity (Unsp spec) Clear Clear [facility] Color (U) Dark Yellow Abnormal Yellow [facility] Epithelial cells LM.HPF (Urine sed) [#/Area] None Seen /HPF [facility] Glucose Test strip (U) [Mass/Vol] Negative Negative [facility] Hemoglobin Ql (U) 2+ Abnormal Negative [facility] Hyaline casts (Urine sed) [#/Area] 0 /[LPF] 0 /LPF [facility] Interpretation and review of laboratory results Abnormal [facility] Ketones Ql (U) Negative Negative [facility] Leukocyte esterase Test strip Ql (U) 2+ Abnormal Negative [facility] Nitrite Ql (U) Negative Negative [facility] pH (U) 6.5 [pH] NINF - 8.5 [facility] Protein (U) [Mass/Vol] Trace Abnormal Negative [facility] RBC LM.HPF (Urine sed) [#/Area] 6-10 /HPF Abnormal 0-2 /HPF [facility] Specific gravity (U) [Rel density] 1.008 1.005 - 1.030 [facility] Urobilinogen Ql (U) 1.0 EU/dL 0.2-1.0 EU/dL [facility] WBC LM.HPF (Urine sed) [#/Area] /[HPF] Abnormal 0-5 /HPF [facility] Result rechecked. This test was developed and its performance characteristics determined by [facility]'s [facility] Pathology and Laboratory Medicine [place] ([facility]). It has not been cleared or approved by the FDA. [facility] is regulated under CLIA as qualified to perform high-complexity testing. This test is used for clinical purposes. It should not be regarded as investigational or for research. [facility] Bacteria Ur Culton 4 Bacteria identified Cx Nom (U) CULTURE, URINE: 10,000-<50,000 CFU/ml Normal Urogenital Shae Normal [facility] Comment on above: Performed By: #### 6 30-4 #### [facility] CLIA [id number] [address] [place] [address] [place] CNOVon 05-24-2023 CNOV Office Visit (UCMNCA) ---- LAURA CASTELLANOS ([id number]) 1995 F [facility] [place] Date Time Provider Department 05/24/23 11:20 AM M[facility] During your visit today, we recorded the following information about you: Temperature Pulse Respiration Blood pressure 99.2 degrees 75/minute 20/minute 120/76 Weight Last Period 108.9 kg 05/02/23 Mary Menjivar PA-C 05/24/2023 12:59 PM Signed Laura Castellanos is a 28 year old female who presents with Hematuria (S/S ongoing for (6) days) Patient is a 28-year-old female who presents to the office with 6 days of UTI symptoms. Patient states she has had hematuria, dysuria, urgency, frequency and pain with urination. Some nausea associated. Patient states that she has been taking Azo which was helping at first but not anymore. Patient is also been drinking cranberry juice. Denies abdominal pain, flank pain. Patient states he had very mild left lower back pain today. No fever, chills, vomiting, diarrhea, chest pain, shortness of breath, headache weakness. Patient states she did have a UTI back in the fall and was on Bactrim for symptom management. Patient states she has history of appendectomy. LMP May 02. Patient states she is sexually active. Patient states she is trying to get . Denies any additional complaints. The history is provided by the patient. No language translator was used. PAST MEDICAL HISTORY Diagnosis Date PCOS (polycystic ovarian syndrome) There is no problem list on file for this patient. Current Outpatient Medications Medication Sig Dispense Refill MULTIVITAMIN ORAL Take by mouth. inulin (PREBIOTIC FIBER ORAL) Take by mouth. Lactobacillus acidophilus (PROBIOTIC ORAL) Take by mouth. medroxyPROGESTERone (PROVERA) 10 mg tablet Take 1 tablet by mouth once daily. 10 days a month as needed to start menses 30 tablet 1 letrozole (FEMARA) 2.5 mg tablet Take 1 tablet by mouth once daily. cycle day 3-7 5 tablet 2 No current facility-administer ed medications for this visit. Social History Tobacco Use Smoking status: Never Smokeless tobacco: Never Vaping Use Vaping Use: Never used Substance Use Topics Alcohol use: Yes Comment: rarely Drug use: Never Alcohol Use: Yes (rarely) Tobacco Use: Never FAMILY HISTORY Problem Relation Age of Onset Diabetes Mother Review of Systems Constitutional: Negative for chills, fever and malaise/fatigue. HENT: Negative for congestion and sore throat. Eyes: Negative for blurred vision, double vision and pain. Respiratory: Negative for cough, shortness of breath and wheezing. Cardiovascular: Negative for chest pain. Gastrointestinal: Positive for nausea. Negative for abdominal pain, diarrhea and vomiting. Genitourinary: Positive for dysuria, frequency and urgency. Negative for flank pain and hematuria. Musculoskeletal: Positive for back pain (mild). Neurological: Negative for dizziness, weakness and headaches. Unless specified in HPI, remaining review of systems negative. BP 120/76 Pulse 75 Temp 99.2 Resp 20 Wt 240 lb (108.9kg) SpO2 98% LMP 05/02/2023 Physical Exam Vitals and nursing note reviewed. Constitutional: Appearance: Normal appearance. HENT: Head: Normocephalic and atraumatic. Nose: Nose normal. Right Sinus: No maxillary sinus tenderness or frontal sinus tenderness. Left Sinus: No maxillary sinus tenderness or frontal sinus tenderness. Mouth/Throat: Mouth: Mucous membranes are moist. Pharynx: Oropharynx is clear. Eyes: Extraocular Movements: Extraocular movements intact. Conjunctiva/sclera: Conjunctivae normal. Pupils: Pupils are equal, round, and reactive to light. Cardiovascular: Rate and Rhythm: Normal rate and regular rhythm. Pulses: Normal pulses. Heart sounds: Normal heart sounds. Pulmonary: Effort: Pulmonary effort is normal. Breath sounds: Normal breath sounds. Abdominal: General: Abdomen is flat. There is no distension. Palpations: Abdomen is soft. There is no mass. Tenderness: There is abdominal tenderness (mild) in the suprapubic area. There is no right CVA tenderness, left CVA tenderness, guarding or rebound. Negative signs include Moreira's sign, Rovsing's sign and McBurney's sign. Hernia: No hernia is present. Musculoskeletal: Cervical back: Normal range of motion and neck supple. No rigidity or tenderness. Lymphadenopathy: Cervical: No cervical adenopathy. Skin: General: Skin is warm and dry. Neurological: General: No focal deficit present. Mental Status: She is alert and oriented to person, place, and time. Mental status is at baseline. Psychiatric: Mood and Affect: Mood normal. Behavior: Behavior normal. ASSESSMENT/PLAN: 1. Urinary tract infection with hematuria, site unspecified - ICD9: 599.0, 599.70, ICD10: N39.0, R31.9 (primary diagnosis) - CEPHALEXIN 500 MG CAPSULE 2. UTI symptoms - IC (more content not included)... Normal [facility] HCG Preg Ur Qlon 05-24-2023 HCG ( test) Ql (U) Negative Normal Negative [facility] Comment on above: Order Comment: Speci men Type: URINE SPECIMEN Ordering Facility: [facility] Address: [address] [place] [address] Result Comment: This test is intended to aid in the early detection of . Very dilute urine samples, as indicated by a low specific gravity, may not contain resources representative levels of hCG. This test detects intact hCG only. This test does not reliably detect hCG degradation products, including free-beta subunit and beta-core fragment. Therefore, this test may show reduced reactivity in urine after 8 weeks gestation. A number of conditions other than , including trophoblastic disease and certain non-trophoblastic neoplasms cause elevated levels of hCG. As with any assay employing mouse antibodies, the possibility exists for interference by human anti-mouse antibodies (HAMA) in the specimen. The test provides a presumptive diagnosis for . Performed By: #### 2 106-3 #### [facility] CLIA [id number] [address] [place] [address] [place] URINALYSIS, DIPSTICK ONLYon 05-24-2023 Bilirubin Ql (U) Negative Normal Negative [facility] Comment on above: Order Comment: Speci men Type: URINE SPECIMEN Ordering Facility: [facility] Address: [address] [place] [address] Performed By: #### U A #### [facility] CLIA [id number] [address] [place] [address] [place] Clarity (Unsp spec) Cloudy Abnormal Clear [facility] Comment on above: Order Comment: Speci men Type: URINE SPECIMEN Ordering Facility: [facility] Address: [address] [place] [address] Performed By: #### U A #### [facility] CLIA [id number] [address] [place] [address] Color (U) Yellow Normal Yellow [facility] Comment on above: Order Comment: Speci men Type: URINE SPECIMEN Ordering Facility: [facility] Address: [address] [place] [address] Performed By: #### U A #### [facility] CLIA [id number] [address] [place] [address] Glucose Test strip (U) [Mass/Vol] Negative Normal Negative [facility] Comment on above: Order Comment: Speci men Type: URINE SPECIMEN Ordering Facility: [facility] Address: [address] [place] [address] Performed By: #### U A #### [facility] CLIA [id number] [address] [place] [address] Hemoglobin Ql (U) 3+ Abnormal Negative [facility] Comment on above: Order Comment: Speci men Type: URINE SPECIMEN Ordering Facility: [facility] Address: [address] [place] [address] Performed By: #### U A #### [facility] CLIA [id number] [address] [place] [address] Ketones Ql (U) Negative Normal Negative [facility] Comment on above: Order Comment: Speci men Type: URINE SPECIMEN Ordering Facility: [facility] Address: [address] [place] [address] Performed By: #### U A #### [facility] CLIA [id number] [address] [place] [address] Leukocyte esterase Test strip Ql (U) 3+ Abnormal Negative [facility] Comment on above: Order Comment: Speci men Type: URINE SPECIMEN Ordering Facility: [facility] Address: [address] [place] [address] Performed By: #### U A #### [facility] CLIA [id number] [address] [place] [address] [place] Nitrite Ql (U) Negative Normal Negative [facility] Comment on above: Order Comment: Speci men Type: URINE SPECIMEN Ordering Facility: [facility] Address: [address] [place] [address] Performed By: #### U A #### [facility] CLIA [id number] [address] [place] [address] [place] pH (U) 6.0 [pH] Normal 5.0-8.0 [facility] Comment on above: Order Comment: Speci men Type: URINE SPECIMEN Ordering Facility: [facility] Address: [address] [place] [address] Performed By: #### U A #### [facility] CLIA [id number] [address] [place] [address] Protein (U) [Mass/Vol] Negative Normal Negative [facility] Comment on above: Order Comment: Speci men Type: URINE SPECIMEN Ordering Facility: [facility] Address: [address] [place] [address] Performed By: #### U A #### [facility] CLIA [id number] [address] [place] [address] Specific gravity (U) [Rel density] 1.010 Normal 1.005-1.030 [facility] Comment on above: Order Comment: Speci men Type: URINE SPECIMEN Ordering Facility: [facility] Address: [address] [place] [address] Performed By: #### U A #### [facility] CLIA [id number] [address] [place] [address] Urobilinogen Ql (U) Negative Normal Negative [facility] Comment on above: Order Comment: Speci men Type: URINE SPECIMEN Ordering Facility: [facility] Address: [address] [place] [address] Performed By: #### U A #### [facility] CLIA [id number] [address] [place] [id number] [place] Progest SerPl-mCncon 024 Progesterone [Mass/Vol] 3.4 ng/mL Normal See comment [facility] Comment on above: Order Comment: Speci men Type: BLOOD SPECIMEN Ordering Facility: External Submitter Address: , , Result Comment: Mens trual Cycle Progesterone Reference Ranges: Follicular: 0.1 - 1.4 ng/mL Luteal: 3.3 - 25.6 ng/mL Mid-luteal: 4.4 - 28.0 ng/mL Postmenopausal: 0.0 - 0.7 ng/mL Progesterone Reference Ranges vary by gestational period: First Trimester: 11.2 - 90.0 ng/mL Second Trimester: 25.5 - 89.4 ng/mL Third Trimester: 48.4 - 422.5 ng/mL The presence of DHEA-S (a metabolite of DHEA, a steroid hormone that may be used as part of in vitro fertilization (IVF) protocols to improve ovarian response and IVF treatment outcomes), causes falsely elevated progesterone results around the clinically important decision level of 1 ng/mL of progesterone, on the [employer] assay. For patients taking DHEA supplements, an alternate methodology should be used to measure progesterone concentrations. Performed By: #### 2 839-9 #### [facility] CLIA [id number] [address] [place] [id number] [place] Laboratory - Chemistry and C hemistry - challengeon 01-23-2023 Beta HCG ( test) Ql (U) Negative Normal [facility] [employer] [facility] [employer] [facility] Bilirubin Ql (U) Negative Normal [facility] Info [facility] [employer] [facility] Ketones Ql (U) Negative Normal [facility] Info [facility] [employer] Info [facility] pH (U) 6.0 [pH] Normal [facility] [employer] [facility] Mas Info [facility] Specific gravity (U) [Rel density] 1.020 Normal [facility] [employer] [facility].; [facility] Info [facility] Laboratory - Hematology and Cell countson 01-23-2023 Hemoglobin Ql (U) +++ Abnormal [facility] Laboratory - Specimen inform ationon 01-23-2023 Appearance (U) CLOUDY Abnormal [facility] Color (U) YELLOW Normal [facility] Laboratory - Urinalysison Glucose Test strip (U) [Mass/Vol] Negative Normal [facility].; [facility] Leukocyte esterase Test strip Ql (U) 3+ Abnormal [facility] Nitrite Ql (U) Negative Normal [facility] Protein Ql (U) 2+ Abnormal [facility] No Panel Informationon 01-23 UA - ODOR Negative Normal [facility] UA - UROBILIGEN 0.2 Normal [facility], Thumb Reading. Laboratory - Chemistry and C hemistry - challengeOrdered By: Armen Bogsg on 12-05-2022 Free T4 [Mass/Vol] 0.93 ng/dL 0.76-1.46 [facility] No Panel InformationOrdered By: Armen Boggs on 12-05-2022 Follicle Stimulating Hormone 2.4 mIU/mL [facility] Comment on above: NORMAL REFERENCE RAN [facility] FEMALE FOLLICULAR 2.3 - 12.6 mIU/mL MID-CYCLE PEAK 5.2 - 17.5 mIU/mL LUTEAL 1.7 - 12.9 mIU/mL POST-MENOPAUSAL ON MHT 5.9 - 72.8 mIU/mL NOT ON MHT 12.7 - 132.2 mlU/mL MALE 0.7 - 10.8 mIU/mL Luteinizing Hormone 1.5 mIU/mL [facility] Comment on above: NORMAL REFERENCE RAN GES FEMALE FOLLICULAR 1.9 - 26.2 mIU/mL MID-CYCLE PEAK 22.8 - 76.1 mIU/mL LUTEAL 0.6 - 16.6 mIU/mL POST-MENOPAUSAL ON MHT 1.1 - 52.4 mIU/mL NOT ON MHT 8.6 - 61.8 mIU/mL MALE 1.2 - 10.6 mIU/mL Thyroid Stimulating Hormone (TSH) 0.81 uIU/mL 0.358-3.74 [facility] No Panel Informationon 12-05 DHEA SULFATE 278.0 ug/dL Normal 84.8 - 378.0 ug/dL [facility].; [facility], [facility]. Work Phone: ESTRADIOL 112.8 pg/mL Normal [facility]; [facility], [facility]. Work Phone: FSH 2.4 m[iU]/mL Normal [facility].; [facility]. Work Phone: LH 1.5 m[iU]/mL Normal [facility].; [facility], [facility]. Work Phone: PROLACTIN 12.5 ng/mL Normal [facility].; [facility], [facility]. Work Phone: T4 FREE DIRECT 0.93 ng/dL Normal 0.76 - 1.46 ng/dL [facility].; [facility], [facility]. Work Phone: TESTOSTERONE, F 0.29 ng/dL Normal 0.10 - 0.85 ng/dL [facility].; [facility], [facility]. Work Phone: TESTOSTERONE, T 21 ng/dL Normal 13 - 71 ng/dL [facility], [facility].; [facility], [facility]. Work Phone: TESTOSTERONE,%F 1.38 Normal 0.50 - 2.80 [facility].; [facility] Work Phone: TSH 0.81 {uIU/mL} Normal 0.358 - 3.74 {uIU/mL} [facility]; [facility] Work Phone: Serum or plasma estradiol (E 2) measurement (mass/volume)Ordered By: Armen Boggs on 12-05-2022 E2 [Mass/Vol] 112.8 pg/mL [facility] Comment on above: NORMAL REFERENCE RAN [facility] FEMALE FOLLICULAR 21.4 - 164.8 pg/mL MID-CYCLE PEAK 49.9 - 367.2 pg/mL LUTEAL 40.2 - 259.0 pg/mL POST-MENOPAUSAL ON MHT <11.0 - 462.1 pg/mL NOT ON MHT <11.0 - 58.3 pg/mL MALE <11.0 - 52.5 pg/mL NOTE:[employer] HAS CONFIRMED THE DRUG FULVETRANT (FASLODEX) MAY CAUSE FALSELY ELEVATED ESTRADIOL RESULTS WHEN USING THIS TEST METHOD. IF PATIENT IS TAKING FULVESTRANT AN ALTERNATIVE METHOD SHOULD BE USED TO DETERMINE ESTRADIOL CONCENTRATION. Serum or plasma prolactin me asurement (mass/volume)Ordered By: Armen Boggs on 12-05-2022 Prolactin [Mass/Vol] 12.5 ng/mL [facility] Comment on above: NORMAL REFERENCE RAN GES FEMALE NON- 2.2 - 30.3 ng/mL 8.1 - 347.6 ng/mL POST-MENOPAUSAL 0.7 - 31.5 ng/mL MALE 2.5 - 17.4 ng/mL Whole blood hemoglobin A1c/t otal hemoglobin ratio (mass fraction)Ordered By: Armen Boggs on 12-05-2022 HbA1c (Bld) [Mass fraction] 5.5 % Normal 3.8 - 5.6 [facility] Comment on above: Normal < 5.7 % Predi abetic 5.7 - 6.4 % Diabetic >or= 6.5 % Please note range changes. EKGon 11-06-2022 Atrial Rate 57 BPM [facility] Calculated P [place] 12 degrees [facility] Calculated R [place] 28 degrees [facility] Calculated T [place] 17 degrees [facility] P-R Interval 162 ms [facility] QRS Duration 92 ms [facility] QT Interval 426 ms [facility] QTC Calculation (Bazett) 414 ms [facility] Ventricular Rate 57 BPM [facility] CBCon 11-05-2022 BASO# 0.02 x10(3) Normal 0.00-0.10 [facility] Comment on above: Performed By: #### L 200.0010 #### [facility] - LABORATORY [address] [place] [address] 63106 Basophils/100 WBC (Bld) 0.3 % Normal 0.0-1.0 [facility] Comment on above: Performed By: #### L 200.0010 #### [facility] - LABORATORY [address] [place] [address] 26878 EOS# 0.06 x10(3) Normal 0.00-0.54 [facility] Comment on above: Performed By: #### L 200.0010 #### ML - LABORATORY [address] [place] [address] 43961 Eosinophils/100 WBC (Bld) 1.0 % Normal 0.5-4.9 [facility] Comment on above: Performed By: #### L 200.0010 #### [facility] - LABORATORY [address] [place] [address] 18972 Erythrocyte distribution width (RBC) [Ratio] 13.0 % Normal 12.5-15.7 [facility] Comment on above: Performed By: #### L 200.0010 #### [facility] - LABORATORY [address] [place] [address] 87561 Hematocrit (Bld) [Volume fraction] 39.2 % Normal 36.0-48.0 [facility] Comment on above: Performed By: #### L 200.0010 #### [facility] - LABORATORY [address] [place] [address] 93696 Hemoglobin (Bld) [Mass/Vol] 12.6 g/dL Normal 12.0-16.0 [facility] Comment on above: Performed By: #### L 200.0010 #### [facility] - LABORATORY [address] [place] [address] 18431 IMM GRAN# 0.01 x10(3) High 0-0 [facility] Comment on above: Performed By: #### L 200.0010 #### [facility] - LABORATORY [address] [place] [address] 48636 IMM GRAN% 0.2 % Normal [facility] Comment on above: Performed By: #### L 200.0010 #### [facility] - [facility]ATORY [address] [place] [address] 69766 LYMPH# 1.73 x10(3) Normal 1.00-3.50 [facility] Comment on above: Performed By: #### L 200.0010 #### [facility] - LABORATORY [address] [place] [address] 43980 Lymphocytes/100 WBC (Bld) 28.4 % Normal 16.0-48.0 [facility] Comment on above: Performed By: #### L 200.0010 #### ML [facility] [address] [place] [address] 32496 MCH (RBC) [Entitic mass] 27.1 pg Low 28.5-32.9 [facility] Comment on above: Performed By: #### L 200.0010 #### ML - LABORATORY [address] [place] [address] 80023 MCHC (RBC) [Mass/Vol] 32.1 g/dL Low 33.0-36.0 Counts include 234 beds at the [facility] Comment on above: Performed By: #### L 200.0010 #### [facility] - LABORATORY [address] [place] [address] 56352 MCV (RBC) [Entitic vol] 84.3 fL Normal 80.0-99.0 [facility] Comment on above: Performed By: #### L 200.0010 #### [facility] - LABORATORY [address] [place] [address] 55951 MONO# 0.49 x10(3) Normal 0.30-0.80 [facility] Comment on above: Performed By: #### L 200.0010 #### ML [facility] [address] [place] [address] 19235 Monocytes/100 WBC (Bld) 8.0 % Normal 4.3-11.2 [facility] Comment on above: Performed By: #### L 200.0010 #### [facility] - LABORATORY [address] [place] [address] 85191 NEUT# 3.78 x10(3) Normal 1.40-6.50 [facility] Comment on above: Performed By: #### L 200.0010 #### ML - LABORATORY [address] [place] [address] 16468 Neutrophils/100 WBC (Bld) 62.1 % Normal 45.0-73.0 [facility] Comment on above: Performed By: #### L 200.0010 #### ML - LABORATORY [address] [place] [address] 06592 Platelet mean volume (Bld) [Entitic vol] 11.3 fL High 7.5-9.5 [facility] Comment on above: Performed By: #### L 200.0010 #### ML [facility] [address] [place] [address] 78044 PLT 300 X10(3) Normal 150-450 [facility] Comment on above: Performed By: #### L 200.0010 #### ML - LABORATORY [address] [place] [address] 75140 RBC 4.65 x10(6) Normal 3.30-5.00 [facility] Comment on above: Performed By: #### L 200.0010 #### ML - LABORATORY [address] [place] [address] 13780 WBC 6.1 x10(3) Normal 4.5-10.0 [facility] Comment on above: Performed By: #### L 200.0010 #### ML - LABORATORY [address] [place] [address] 93172 CBC W Auto Differential pane l (Bld)on 11-05-2022 BASO ABS 0.02 x10(3) 0.00 - 0.10 x10(3) [facility] Basophils/100 WBC (Bld) 0.3 % 0.0 - 1.0 % [facility] EOS ABS 0.06 x10(3) 0.00 - 0.54 x10(3) [facility] Eosinophils/100 WBC (Bld) 1.0 % 0.5 - 4.9 % [facility] Erythrocyte distribution width (RBC) [Ratio] 13.0 % 12.5 - 15.7 % [facility] Hematocrit (Bld) [Volume fraction] 39.2 % 36.0 - 48.0 % [facility] Hemoglobin (Bld) [Mass/Vol] 12.6 g/dL 12.0 - 16.0 g/dL [facility] Immature Gran % 0.2 % [facility] Immature Gran Abs 0.01 x10(3) High 0 - 0 x10(3) [facility] LYMPH ABS 1.73 x10(3) 1.00 - 3.50 x10(3) [facility] Lymphocytes/100 WBC (Bld) 28.4 % 16.0 - 48.0 % [facility] MCH (RBC) [Entitic mass] 27.1 pg Low 28.5 - 32.9 pg [facility] MCHC (RBC) [Mass/Vol] 32.1 g/dL Low 33.0 - 36.0 g/dL [facility] MCV (RBC) [Entitic vol] 84.3 fL 80.0 - 99.0 fl [facility] MONO ABS 0.49 x10(3) 0.30 - 0.80 x10(3) [facility] Monocytes/100 WBC (Bld) 8.0 % 4.3 - 11.2 % [facility] Neutrophil Ab 3.78 x10(3) 1.40 - 6.50 x10(3) [facility] Neutrophils/100 WBC (Bld) 62.1 % 45.0 - 73.0 % [facility] Platelet mean volume (Bld) [Entitic vol] 11.3 fL High 7.5 - 9.5 fl [facility] Platelets (Bld) [#/Vol] 300 X10(3) 150 - 450 X10(3) [facility] RBC (Bld) [#/Vol] 4.65 x10(6) 3.30 - 5.0 0 x10(6) [facility] WBC (Bld) [#/Vol] 6.1 x10(3) 4.5 - 10.0 x10(3) [facility] CMPon 11-05-2022 A:G RATIO 1.20 Normal 1.1-2.5 [facility] Comment on above: Performed By: #### L 100.0005, L100.0040 #### [facility] - LABORATORY [address] [place] [address] 27841 Albumin [Mass/Vol] 4.2 g/dL Normal 3.5-5.2 [facility] Comment on above: Performed By: #### L 100.0005, L100.0040 #### ML - LABORATORY [address] [place] [address] 55713 ALK. PHOS 59 U/L Normal 35-105 [facility] Comment on above: Performed By: #### L 100.0005, L100.0040 #### ML - LABORATORY [address] [place] [address] 92654 ALT [Catalytic activity/Vol] 12 U/L Normal 5-33 [facility] Comment on above: Performed By: #### L 100.0005, L100.0040 #### ML - LABORATORY [address] [place] [address] 56295 Anion gap [Moles/Vol] 15.9 mmol/L Normal 15-22 [facility] Comment on above: Performed By: #### L 100.0005, L100.0040 #### [facility] - LABORATORY [address] [place] [address] 13620 AST [Catalytic activity/Vol] 14 U/L Normal 5-32 [facility] Comment on above: Performed By: #### L 100.0005, L100.0040 #### ML - LABORATORY [address] [place] [address] 19487 Bilirubin [Mass/Vol] 0.3 mg/dL Normal 0.2-1.2 [facility] Comment on above: Performed By: #### L 100.0005, L100.0040 #### ML - LABORATORY [address] [place] [address] 66777 Calcium [Mass/Vol] 9.5 mg/dL Normal 8.6-10.0 [facility] Comment on above: Performed By: #### L 100.0005, L100.0040 #### ML - LABORATORY [address] [place] [address] 75816 Chloride [Moles/Vol] 104 mmol/L Normal 98-107 [facility] Comment on above: Performed By: #### L 100.0005, L100.0040 #### ML - LABORATORY [address] [place] [address] 32525 CO2 [Moles/Vol] 23 mmol/L Normal 22-29 [facility] Comment on above: Performed By: #### L 100.0005, L100.0040 #### ML [facility] [address] [place] [address] 23093 Creatinine [Mass/Vol] 0.67 mg/dL Normal 0.50-0.90 Counts include 234 beds at the [facility] Comment on above: Performed By: #### L 100.0005, L100.0040 #### ML - LABORATORY [address] [place] [address] 04683 eGFR if AFR GAVIN > 60 ml/min/1.73m2 Normal [facility] Comment on above: Result Comment: eGFR >= 60 Indicates normal kidney function. * eGFR IS AN ESTIMATE * (AFR GAVIN = ) (non-AFR AM = NON-) MDRD calculation used in the eGFR should not be used to dose medications. For further limitations of the eGFR please refer to the Physician Website or the National Kidney Disease Education Program website (www.nkdep.nih.gov). Performed By: #### L 100.0005, L100.0040 #### ML - LABORATORY [address] [place] [address] 38607 eGFR nonAFR Gavin > 60 ml/Min/1.73m2 Normal [facility] Comment on above: Performed By: #### L 100.0005, L100.0040 #### ML - LABORATORY [address] [place] [address] 96417 Globulin (S) [Mass/Vol] 3.5 g/dL Normal 1.5-4.5 [facility] Comment on above: Performed By: #### L 100.0005, L100.0040 #### ML - LABORATORY [address] [place] [address] 07768 Glucose [Mass/Vol] 92 mg/dL Normal 74-106 [facility] Comment on above: Performed By: #### L 100.0005, L100.0040 #### [facility] - [facility] [address] [place] [address] 93462 Potassium [Moles/Vol] 3.9 mmol/L Normal 3.5-5.0 Counts include 234 beds at the [facility] Comment on above: Performed By: #### L 100.0005, L100.0040 #### ML - [facility] [address] [place] [address] 98601 Protein [Mass/Vol] 7.7 g/dL Normal 6.4-8.3 [facility] Comment on above: Performed By: #### L 100.0005, L100.0040 #### ML - LABORATORY [address] [place] [address] 64496 Sodium [Moles/Vol] 139 mmol/L Normal 135-145 [facility] Comment on above: Performed By: #### L 100.0005, L100.0040 #### [facility] - [facility] [address] [place] [address] 92527 Urea nitrogen [Mass/Vol] 17 mg/dL Normal 6-20 [facility] Comment on above: Performed By: #### L 100.0005, L100.0040 #### ML - LABORATORY [address] [place] [address] 99613 Comprehensive metabolic 2000 panelon 11-05-2022 Albumin [Mass/Vol] 4.2 g/dL 3.5 - 5.2 g/dL [facility] Albumin/Globulin [Mass ratio] 1.20 {ratio} 1.1 - 2.5 [facility] ALP [Catalytic activity/Vol] 59 U/L 35 - 105 U/L [facility] ALT [Catalytic activity/Vol] 12 U/L 5 - 33 U/L [facility] Anion gap [Moles/Vol] 15.9 mmol/L 15 - 22 mmol/ L [facility] AST [Catalytic activity/Vol] 14 U/L 5 - 32 U/L [facility] Bilirubin [Mass/Vol] 0.3 mg/dL 0.2 - 1.2 mg/dL [facility] Calcium [Mass/Vol] 9.5 mg/dL 8.6 - 10. 0 mg/dL [facility] Chloride [Moles/Vol] 104 mmol/L 98 - 107 mmol/L [facility] CO2 [Moles/Vol] 23 mmol/L 22 - 29 mmol/L [facility] Creatinine [Mass/Vol] 0.67 mg/dL 0.50 - 0.90 mg/dL [facility] eGFR-All Other Races > 60 ml/Min/1.73m2 [facility] GFR/1.73 sq M.predicted among blacks MDRD (S/P/Bld) [Vol rate/Area] mL/min/{1.73_m2} [facility] Globulin (S) [Mass/Vol] 3.5 g/dL 1.5 - 4.5 g/ dL [facility] Glucose [Mass/Vol] 92 mg/dL 74 - 106 mg/dL Cl [facility] Potassium [Moles/Vol] 3.9 mmol/L 3.5 - 5.0 mmol/L [facility] Protein [Mass/Vol] 7.7 g/dL 6.4 - 8.3 g/dL Cl [facility] Sodium [Moles/Vol] 139 mmol/L 135 - 145 mmol/L [facility] Urea nitrogen [Mass/Vol] 17 mg/dL 6 - 20 mg/dL [facility] ELECTROCARDIOGRAMon 11-06-19 23 [place] [address] [facility]ALTH [facility]FORMATION MANAGEMENT ELECTROCARDIOGRAM REPORT Patient: LAURA CASTELLANOS Ordering: ALFRED HOOD C.N.P. [id number] [age] F Exam Date: 11/05/22 Report #: [id number] Status: REG CLI CARD Test Reason : Blood Pressure : / mmHG Vent. Rate : 057 BPM Atrial Rate : 057 BPM P-R Int : 162 ms QRS Dur : 092 ms QT Int : 426 ms P-R-T Axes : 012 028 017 degrees QTc Int : 414 ms Sinus bradycardia Otherwise normal ECG No previous ECGs available Confirmed by JANETH BLACK MD ([id number]) on 11/06/2022 11:30:03 AM Referred By: Confirmed By:JANETH BLACK MD Signed in GE MUSE 11/06/22 1130 JANETH BLACK M.D. cc: << Signature on File>> Reported By: JANETH BLACK M.D. Signed By: JANETH BLACK M.D. Tests performed at: [address] [address] [facility] LIPID PANELon 11-05-2022 Cholesterol [Mass/Vol] 148 mg/dL Normal 130-200 [facility] Comment on above: Performed By: #### L 100.0005, L100.0040 #### ML - LABORATORY [address] [place] [address] 77744 Cholesterol in HDL [Mass/Vol] 53 mg/dL Normal [facility] Comment on above: Result Comment: Marie onal Cholesterol Education Program (NCEP) guidelines: <40 mg/dL: Low HDL-Cholesterol(major risk factor for CHD) > or = 60 mg/dL: High HDL-Cholesterol(negative risk factor for CHD) HDL-cholesterol is affected by a number of factors, e.g., smoking, exercise, hormones, sex, and age. 4th Generation Test; Results may be approximately 7% lower than previous values. Performed By: #### L 100.0005, L100.0040 #### ML - LABORATORY [address] [place] [address] 15498 Cholesterol in LDL [Mass/Vol] 77 mg/dL Normal [facility] Comment on above: Result Comment: LDL: OPTIMAL FOR PEOPLE AT VERY HIGH RISK <70 OPTIMAL <100 NEAR OPTIMAL 100-129 BORDERLINE HIGH 130-159 HIGH 160-189 VERY HIGH >=190 Source: 2009 NCEP ATP III, ADA Guidelines Reviewed: July, Performed By: #### L 100.0005, L100.0040 #### [facility] - [facility] [address] [place] [address] 13445 Cholesterol in VLDL [Mass/Vol] 18 mg/dL Normal 6-40 [facility] Comment on above: Performed By: #### L 100.0005, L100.0040 #### ML - [facility] [address] [place] [address] LDL/HDL RATIO 1.5 Normal [facility] Comment on above: Performed By: #### L 100.0005, L100.0040 #### ML - [facility] [address] [place] [address] Triglyceride [Mass/Vol] 92 mg/dL Normal [facility] Comment on above: Result Comment: TRIG : DESIRABLE: <150 mg/dL Performed By: #### L 100.0005, L100.0040 #### ML - [facility] [address] [place] [address] 47041 Lipid 1996 panelon 3 Cholesterol [Mass/Vol] 148 mg/dL 130 - 200 mg/ dL [facility] Cholesterol in HDL [Mass/Vol] 53 mg/dL [facility] Cholesterol in LDL [Mass/Vol] 77 mg/dL [facility] LDL:HDL Ratio 1.5 [facility] Triglyceride [Mass/Vol] 92 mg/dL [facility] VLDL Cholesterol 18 mg/dL 6 - 40 mg/dL [facility] XR CHEST 2V FRONTAL/LATon [facility] EXERCISE STRESS WO IMAGINGon 10-20-2022 [facility] NON NUCLEAR STRESS TESTon [place] [address] HEALTH INFORMATION MANAGEMENT CARDIOLOGY REPORT Patient: LAURA CASTELLANOS KATELYTaran Lucas C.N.P. [id number] [age] F Status: REG REF CARD Exam # Type/Exam [id number] CARD / NON NUCLEAR STRESS TEST DATE OF SERVICE: 10/20/2022 PHYSICIAN: Alfred Hood CNP. PROTOCOL: Chirag. REASON FOR TEST: Pre-employment physical. MEDICAL THERAPY: None. HEMODYNAMICS: Resting blood pressure 120/78 with resting heart rate of 60. Maximum blood pressure 178/84, maximum heart rate was 169. Target heart rate was 162, which was achieved. The patient exercised a total of 9 minutes and 15 seconds, which is 10.1 METs. Double product 30,082. EKG: Shows normal sinus rhythm no exercise-induced arrhythmias were appreciated. CONCLUSION: The patient completed stress test via Chirag protocol. Stress test concluded secondary to end of protocol. Hemodynamic response was normal. EKG without arrhythmias. Exercise tolerance excellent. The patient should be cleared for any pre-employment physical activity. The supervising and interpreting provider, Danielle Nix CNP, is immediately available and in the department. Dr. Ruben Fernandes is available by phone for collaboration if needed. Report#: Dict ID [id number] / Int ID [id number] 10/21/22 1320 DANIELLE NIX C.N.P. cc: ALFRED HOOD C.N.P. << Signature on File>> Reported By: DANIELLE NIX C.N.P. Signed By: DANIELLE NIX C.N.P. Tests performed at: [place] [address] [facility] No Panel Informationon 05-01 ADEQ Comment [place] [employer] Work Phone: COMM . Exit41 [facility] Find That File.; [facility] [employer] Work Phone: COMMENT Comment [facility] [employer] [facility].; [facility] [employer] [facility] Work Phone: DIAG Comment [facility] [employer].; [place] [facility] [employer] Work Phone: HPV RFLX Comment [facility] [employer] [place] [facility] [employer] Work Phone: PAPSMR Comment [facility] [employer].; [employer] [facility] [employer] Work Phone: PERFORM Comment [facility] [employer], [employer].; [employer] [facility] [employer] Work Phone: GLUon 06-12-2020 Glucose [Mass/Vol] 78 mg/dL Normal 70 - 110 mg/dL [facility] ([place]) Comment on above: Performed By: #### Sugar JOLLY, LIPID #### [address] [address] LIPIDon 06-12-2020 Cholesterol [Mass/Vol] 131 mg/dL Normal 50 - 199 mg/d L [facility] ([place]) Comment on above: Result Comment: Chol esterol Reference Interval: Less than 200 Desirable 200-239 Borderline high risk 240 and above High risk Performed By: #### Sugar JOLLY, LIPID #### [address] [address] Cholesterol in HDL [Mass/Vol] 45 mg/dL Normal 40 - 59 mg/dL [facility] ([place]) Comment on above: Performed By: #### Sugar JOLLY, LIPID #### [address] [address] Cholesterol in LDL [Mass/Vol] 75 mg/dL Normal 0 - 129 mg/dL [facility] ([place]) Comment on above: Performed By: #### Sugar JOLLY, LIPID #### [address] [address] Triglyceride [Mass/Vol] 54 mg/dL Normal 3 - 149 mg/d L [facility] ([place]) Comment on above: Performed By: #### Sugar JOLLY, LIPID #### [address] [address] HepB SurfaceAb,Quanton 03-21 HepB SurfaceAb,Quant 449.38 mIU/mL High <8.00 [facility] Reference [facility] Comment on above: Performed By: #### M EASLG, AHBSQ, MUMPSG, RUBIGG #### [facility] Routine Lab [address] [place], [place] [address] Measles IgG Antibodyon 03-21 Measles IgG Ab, Qual Abnormal Negative [facility] Reference Lab Comment on above: Result Comment: Posi tive Presence of detectable measles virus IgG antibodies. A positive result generally indicates exposure to measles virus or previous vaccination. Performed By: #### M EASLG, AHBSQ, MUMPSG, RUBIGG #### [facility] Routine Lab [address] [place] [address] Measles IgG Antibody Normal [facility] Reference Lab Comment on above: Result Comment: 205. 0 AU/mL Negative Specimens <13.5 Equivocal Specimens >=13.5 to <16.5 Positive Specimens >=16.5 The magnitude of the measured result, above the cutoff, is not indicative of the amount of antibody present. Value Negative Specimens <13.5 Equivocal Specimens >=13.5 to <16.5 Positive Specimens >=16.5 The magnitude of the measured result, above the cutoff, is not indicative of the amount of antibody present. interpreted as Negative Specimens <13.5 Equivocal Specimens >=13.5 to <16.5 Positive Specimens >=16.5 The magnitude of the measured result, above the cutoff, is not indicative of the amount of antibody present. follows: Negative Specimens <13.5 Equivocal Specimens >=13.5 to <16.5 Positive Specimens >=16.5 The magnitude of the measured result, above the cutoff, is not indicative of the amount of antibody present. Performed By: #### M EASLG, AHBSQ, MUMPSG, RUBIGG #### [facility] Routine Lab [address] [address] Mumps IgG Abon 03-21-2020 Mumps IgG Ab 31.9 AU/mL Normal [facility] Reference Lab Comment on above: Performed By: #### M EASLG, AHBSQ, MUMPSG, RUBIGG #### [facility] Routine Lab [address] [address] Mumps IgG, Qual Positive Abnormal Negative [facility] Reference Lab Comment on above: Performed By: #### M EASLG, AHBSQ, MUMPSG, RUBIGG #### [facility] Routine Lab [address] [address] Rubella IgG Antibodyon 03-21 Rubella IgG Ab 3.35 Index Value Normal [facility] Reference Lab Comment on above: Performed By: #### M EASLG, AHBSQ, MUMPSG, RUBIGG #### [facility] Routine Lab [address] [place], [place] [id number] Rubella IgG Ab, Qual Positive Abnormal Negative [facility] Reference Lab Comment on above: Performed By: #### M EASLG, AHBSQ, MUMPSG, RUBIGG #### [facility] Routine Lab [address] [place], [place] [id number] Laboratory - Chemistry and C hemistry - challengeon 03-20-2020 Cholesterol [Mass/Vol] 144 mg/dL Normal 0 - 240 mg/dL [facility]; [facility] Work Phone: Cholesterol in HDL [Mass or moles/Vol] 44 mg/dL Normal 40 - 60 mg/dL [facility]; [facility] Work Phone: Cholesterol in LDL [Mass/Vol] 89 mg/dL Normal 0 - 129 mg/dL [facility]; [facility] Work Phone: Cholesterol.total/Yamileth sterol in HDL [Mass ratio] 3.3 {ratio} Normal 0.0 - 5.0 [facility]; [facility]. Work Phone: Glucose [Mass/Vol] 83 mg/dL Normal 74 - 106 mg/dL [facility]; [facility] Work Phone: Lipid 1996 panel Normal [facility]; [facility] Work Phone: Triglyceride [Mass/Vol] 53 mg/dL Normal 0 - 150 mg/d L [facility]; [facility], [facility] Work Phone: No Panel Informationon 03-20 COTININE Negative Normal [facility].; [facility], [facility]. Work Phone: HepB SurfaceAb,Quant 449.38 m[iU]/mL Abnormal [facility].; [facility]. Work Phone: Measles IgG Ab, Qual Positive Abnormal [facility].; [facility], [facility]. Work Phone: Measles IgG Antibody 205.0 AU/mL Normal [facility]3].; [facility], [facility]. Work Phone: Mumps IgG Ab 31.9 AU/mL Normal [facility].; [facility]. Work Phone: Mumps IgG, Qual Positive Abnormal [facility].; [facility]. Work Phone: Rubella IgG Ab 3.35 {Indexlue} Normal [facility].; [facility], [facility]. Work Phone: Rubella IgG Ab, Qual Positive Abnormal [facility].; [facility], [facility]. Work Phone: Laboratory - Blood bankon ABO and Rh group Nom (Bld) Blood group AB Rh(D) positive Normal [facility].; [facility]. Work Phone: Laboratory - Coagulationon 1 05-12-2019 aPTT Coag (Bld) [Time] 27.1 s Normal 24.1 - 36.2 s [facility].; [facility]. Work Phone: INR Coag (PPP) [Relative time] 1.2 {INR} Normal [facility].; [facility]. Work Phone: PT Coag (PPP) [Time] 14.3 s Normal 11.7 - 14.9 s [facility]; [facility] Work Phone: Laboratory - Hematology and Cell countson 03-12-2020 Erythrocyte distribution width (RBC) [Ratio] 13.2 % Normal 11.6 - 14.6 % [facility] [email or web address]; [facility] Work Phone: Hematocrit (Bld) [Volume fraction] 41.1 % Normal 37 - 47 % [email or web address]; [facility] Work Phone: Hemoglobin (Bld) [Mass/Vol] 12.5 g/dL Normal 12.0 - 15.0 g/dL [email or web address]; [facility]. Work Phone: MCH (RBC) [Entitic mass] 25.0 pg Abnormal 27.0 - 32.0 pg [facility]; [facility]. Work Phone: MCHC (RBC) [Mass/Vol] 30.4 g/dL Abnormal 32 - 36 g/dL E [facility] Hospital[facility].; [facility]. Work Phone: MCV (RBC) [Entitic vol] 82.2 fL Normal 81 - 99 fL E [facility] Info [facility].; [facility]. Work Phone: Platelet mean volume (Bld) [Entitic vol] 10.7 fL Normal 6.2 - 12.0 fL [facility]; [facility]. Work Phone: Platelets (Bld) [#/Vol] 408 10*3/uL Normal 150 - 450 K /mm3 [facility] Info [facility]; [facility]. Work Phone: RBC (Bld) [#/Vol] 5.00 10*6/uL Normal 4.2 - 5.4 {M/mm3} [facility].; [facility] Work Phone: WBC (Bld) [#/Vol] 8.6 10*3/uL Normal 4.4 - 11.0 K/mm3 [facility].; [facility] Work Phone: No Panel Informationon 03-12 ENDOMETRIAL BX/CURETTINGS See Note Normal [facility].; [facility] Work Phone: HCGSQUAL Negative Normal [facility].; [facility] Work Phone: RDW SD 39.8 fL Normal 35.1 - 43.9 fL [facility].; [facility] Work Phone: No Panel Informationon 02-16 DHEA SULF 4020 264.0 ug/dL Normal 84.8 - 378.0 ug/dL [facility].; [facility] Work Phone: ENDOMETRIAL BX/CURETTINGS See Note Normal [facility].; [facility]. Work Phone: FSH 0.4 m[iU]/mL Normal [facility].; [facility]. Work Phone: HYDROXPROG 17 28 ng/dL Normal [facility].; [facility] Work Phone: LH < 0.2 Normal [facility].; [facility] Work Phone: PROLACTIN 31.2 ng/mL Normal [facility]; [facility]. Work Phone: T4 FREE DIRECT 1.14 ng/dL Normal 0.76 - 1.46 ng/dL [facility] [email or web address]; [facility]. Work Phone: TEST FR [id number] 13.0 pg/mL Abnormal 0.0 - 4.2 pg/mL [facility] [email or web address]; [facility]. Work Phone: TSH 0.52 {uIU/mL} Normal 0.358 - 3.74 {uIU/mL} [facility] [email or web address]; [facility]. Work Phone: .Auto Diffon 02-03-2020 Ammonia (P) [Mass/Vol] 0.70 10 3/mcL Normal 0.09-1.40 [facility] ([place]) Comment on above: Performed By: #### C AVTAR MARSHALL ANEU #### [address] [address] Basophils (Bld) [#/Vol] 0.00 10 3/mcL Normal 0.00-0.27 [facility] ([place]) Comment on above: Performed By: #### AVTAR FU ANEU #### [address] [address] Basophils/100 WBC (Bld) 0.3 % Normal 0.0 - 2.5 % [facility] ([place]) Comment on above: Performed By: #### AVTAR FU ANEU #### [address] [address] Eosinophils (Bld) [#/Vol] 0.10 10 3/mcL Normal 0.00-0.65 [facility] ([place]) Comment on above: Performed By: #### AVTAR FU ANEU #### [address] [address] Eosinophils/100 WBC (Bld) 1.0 % Normal 0.0 - 6.0 % [facility] ([place]) Comment on above: Performed By: #### C AVTAR MARSHALL ANEU #### [address] [address] Lymphocytes (Bld) [#/Vol] 2.10 10 3/mcL Normal 0.90-4.32 [facility] ([place]) Comment on above: Performed By: #### AVTAR FU, ANEU #### [address] [address] Lymphocytes/100 WBC (Bld) 19.9 % Abnormal 20.0 - 40.0 % [facility] ([place]) Comment on above: Performed By: #### AVTAR FU ANEU #### [address] [address] Monocytes/100 WBC (Bld) 6.3 % Normal 2.0 - 13.0 % [facility] ([place]) Comment on above: Performed By: #### AVTAR FU ANEU #### [address] [address] Neutrophils/100 WBC (Bld) 72.5 % Normal 50.0 - 75.0 % [facility] ([place]) Comment on above: Performed By: #### AVTAR FU, ANEU #### [address] [address] .NEUABSon 02-03-2020 Neutrophils (Bld) [#/Vol] 7.60 10 3/mcL Normal 2.25-8.10 [facility] ([place]) Comment on above: Performed By: #### AVTAR FU, ANEU #### [address] [address] CBCon 02-03-2020 Erythrocyte distribution width (RBC) [Ratio] 16.4 % Abnormal 11.5 - 15.5 % [facility] Comment on above: Performed By: #### AVTAR FU, ANEU #### [address] [address] Hematocrit (Bld) [Volume fraction] 34.8 % Normal 34.0 - 46.0 % [facility], [employer]. Comment on above: Performed By: #### C AVTAR MARSHALL ANEU #### [address] [address] Hemoglobin (Bld) [Mass/Vol] 11.5 G/dL Abnormal 12.0 - 16.0 g/dL [facility] Comment on above: Performed By: #### C AVTAR MARSHALL, ANEU #### [address] [address] MCH (RBC) [Entitic mass] 26.3 pg Abnormal 27.0 - 33.0 pg [facility] Comment on above: Performed By: #### C AVTAR MARSHALL ANEU #### [address] [address] MCHC (RBC) [Mass/Vol] 33.0 G/dL Normal 32.0 - 36.0 g/dL [facility] Comment on above: Performed By: #### C AVTAR MARSHALL ANEU #### [address] [address] MCV (RBC) [Entitic vol] 79.7 fL Abnormal 80.0 - 99.0 fL [facility], [employer]. Comment on above: Performed By: #### C AVTAR MARSHALL, ANEU #### [address] [address] Platelet mean volume (Bld) [Entitic vol] 9.4 fL Normal 6.6 - 10.5 fL [facility], [facility].; [facility] Comment on above: Performed By: #### C AVTAR MARSHALL, ANEU #### [address] [address] Platelets (Bld) [#/Vol] 349 10 3/mcL Normal 150-450 [facility] ([place]) Comment on above: Performed By: #### C AVTAR MARSHALL ANEU #### [facility] [address] [place] [address] RBC (Bld) [#/Vol] 4.37 10 6/mcL Normal 4.10-5.30 [facility] ([place]) Comment on above: Performed By: #### C BC, ADIFF, ANEU #### [facility] [address] [place] [address] WBC (Bld) [#/Vol] 10.50 10 3/mcL Normal 4.50-10.80 [facility] ([place]) Comment on above: Performed By: #### C BC, ADIFF, ANEU #### [facility] [address] [place] [address] Laboratory - Hematology and Cell countson 02-03-2020 Basophils (Bld) [#/Vol] 0.00 {10^3/mcL} Normal 0 .00 - 0.27 {10^3/mcL} [place] [employer] [facility] [employer]. Work Phone: Eosinophils (Bld) [#/Vol] 0.10 {10^3/mcL} Normal 0.00 - 0.65 {10^3/mcL} [place] [employer] [facility] [employer]. Work Phone: Lymphocytes (Bld) [#/Vol] 2.10 {10^3/mcL} Normal 0.90 - 4.32 {10^3/mcL} [place] [place] [employer] [facility] [employer]. Work Phone: Monocytes (Bld) [#/Vol] 0.70 {10^3/mcL} Normal 0 .09 - 1.40 {10^3/mcL} [place] [employer] [facility] [employer]. Work Phone: Neutrophils (Bld) [#/Vol] 7.60 {10^3/mcL} Normal 2.25 - 8.10 {10^3/mcL} [place] [employer] [facility] [employer]. Work Phone: [phone] Platelets (Bld) [#/Vol] 349 {10^3/mcL} Normal 15 0 - 450 {10^3/mcL} [place] [employer]. RBC (Bld) [#/Vol] 4.37 {10^6/mcL} Normal 4.10 - 5.30 {10^6/mcL} [place] [facility] [employer]. WBC (Bld) [#/Vol] 10.50 {10^3/mcL} Normal 4.50 - 10.80 {10^3/mcL} [place] [facility] [employer]. No Panel Informationon 02-02 Eosinophil, Absolute 0.10 {10^3/mcL} Normal 0.00 - 0.65 {10^3/mcL} [place] [employer] [facility] [employer]. Work Phone: .Auto Diffon 02-01-2020 Ammonia (P) [Mass/Vol] 0.80 10 3/mcL Normal 0.09-1.40 [facility] ([place]) Comment on above: Performed By: #### AVTAR FU ANEU #### [address] [address] Basophils (Bld) [#/Vol] 0.00 10 3/mcL Normal 0.00-0.27 [facility] ([place]) Comment on above: Performed By: #### AVTAR FU ANEU #### [address] [address] Basophils/100 WBC (Bld) 0.3 % Normal 0.0-2.5 [facility] ([place] Comment on above: Performed By: #### AVTAR FU ANEU #### [address] [address] Eosinophils (Bld) [#/Vol] 0.10 10 3/mcL Normal 0.00-0.65 [facility] ([place]) Comment on above: Performed By: #### AVTAR FU ANEU #### [address] [address] Eosinophils/100 WBC (Bld) 0.7 % Normal 0.0-6.0 [facility] ([place]) Comment on above: Performed By: #### C AVTAR MARSHALL, ANEU #### [address] [address] Lymphocytes (Bld) [#/Vol] 2.30 10 3/mcL Normal 0.90-4.32 [facility] ([place]) Comment on above: Performed By: #### C AVTAR MARSHALL, ANEU #### [address] [address] Lymphocytes/100 WBC (Bld) 20.7 % Normal 20.0-40.0 [facility] ([place]) Comment on above: Performed By: #### C AVTAR MARSHALL, ANEU #### [address] [address] Monocytes/100 WBC (Bld) 7.7 % Normal 2.0-13.0 [facility] ([place]) Comment on above: Performed By: #### C AVTAR MARSHALL, ANEU #### [address] [address] Neutrophils/100 WBC (Bld) 70.6 % Normal 50.0-75.0 [facility] ([place]) Comment on above: Performed By: #### C AVTAR MARSHALL, ANEU #### [address] [address] .NEUABSon 02-01-2020 Neutrophils (Bld) [#/Vol] 7.80 10 3/mcL Normal 2.25-8.10 [facility] ([place]) Comment on above: Performed By: #### C AVTAR MARSHALL, ANEU #### [address] [address] CBCon 02-01-2020 Erythrocyte distribution width (RBC) [Ratio] 16.2 % High 11.5-15.5 [facility] ([place]) Comment on above: Performed By: #### C AVTAR MARSHALL, ANEU #### [address] [address] Hematocrit (Bld) [Volume fraction] 36.8 % Normal 34.0-46.0 [facility] ([place]) Comment on above: Performed By: #### AVTAR FU ANEU #### [address] [address] Hemoglobin (Bld) [Mass/Vol] 12.0 G/dL Normal 12.0-16.0 [facility] ([place]) Comment on above: Performed By: #### AVTAR FU, ANEU #### [address] [address] MCH (RBC) [Entitic mass] 26.1 pg Low 27.0-33.0 [facility] ([place]) Comment on above: Performed By: #### AVTAR FU, ANEU #### [address] [address] MCHC (RBC) [Mass/Vol] 32.7 G/dL Normal 32.0-36.0 [facility] ([place]) Comment on above: Performed By: #### C AVTAR MARSHALL, MANJU #### [address] [address] MCV (RBC) [Entitic vol] 80.0 fL Normal 80.0-99.0 [facility] ([place]) Comment on above: Performed By: #### C AVTAR MARSHALL, ANEU #### [address] [address] Platelet mean volume (Bld) [Entitic vol] 8.4 fL Normal 6.6-10.5 [facility] ([place]) Comment on above: Performed By: #### C AVTAR MARSHALL, ANEU #### [address] [address] Platelets (Bld) [#/Vol] 336 10 3/mcL Normal 150-450 [facility] ([place]) Comment on above: Performed By: #### AVTAR FU, MANJU #### [address] [address] RBC (Bld) [#/Vol] 4.60 10 6/mcL Normal 4.10-5.30 [facility] ([place]) Comment on above: Performed By: #### C AVTAR MARSHALL, ANEU #### [address] [address] WBC (Bld) [#/Vol] 11.10 10 3/mcL High 4.50-10.80 [facility] ([place]) Comment on above: Performed By: #### C AVTAR MARSHALL, ANEU #### [address] [address] GLUon 12-27-2019 Glucose [Mass/Vol] 92 mg/dL Normal 70 - 110 mg/dL [facility] ([place]) Comment on above: Performed By: #### Sugar JOLLY, LIPID #### [address] [address] LIPIDon 12-27-2019 Cholesterol [Mass/Vol] 148 mg/dL Normal 50 - 199 mg/d L [facility] ([place]) Comment on above: Result Comment: Chol esterol Reference Interval: Less than 200 Desirable 200-239 Borderline high risk 240 and above High risk Performed By: #### Sugar JOLLY, LIPID #### [place] [address] Cholesterol in HDL [Mass/Vol] 48 mg/dL Normal 40 - 59 mg/dL [facility] ([place]) Comment on above: Performed By: #### Sugar JOLLY, LIPID #### [place] [address] Cholesterol in LDL [Mass/Vol] 81 mg/dL Normal 0 - 129 mg/dL [facility] ([place]) Comment on above: Performed By: #### Sugar JOLLY, LIPID #### [place] [address] Triglyceride [Mass/Vol] 97 mg/dL Normal 3 - 149 mg/d L [facility] ([place]) Comment on above: Performed By: #### Sugar JOLLY, LIPID #### [address] [address] HBSABon 07-21-2019 Hep B Surf Ab >1000.0 Normal [facility] ([place]) Comment on above: Result Comment: Anti -HBs Interpretation: 0 to <5.0 mIU/mL Negative Patient is considered to be not immune to infection with HBV. >/= 5.0 and <12.0 mIU/mL Equivocal Unable to determine if anti-HBs is present at levels consistent with immunity. Patient's immune status should be further assessed by considering other clinical information or retesting another sample drawn at a later time. >/= 12.0 mIU/mL Positive Patient is considered to be immune to infection with HBV. It has not been determined what the clinical significance is for values greater than or equal to 12.0 mIU/mL, other than the individual is considered to be immune to HBV infection. Performed By: #### H BSAB #### [place] [address] Laboratory - Chemistry and C hemistry - challengeon 10-19-2017 Albumin BCP dye [Mass/Vol] 3.9 g/dL Normal 3.2 - 4.8 g/dL [facility], [facility].; [facility], [facility]. Albumin/Globulin [Mass ratio] 1.0 {ratio} Normal 0.9 - 1.6 {ratio} [facility].; [facility], [facility]. ALP [Catalytic activity/Vol] 70 U/L Normal 38 - 126 U/L [facility].; [facility], [facility]. ALT No additional P-5'-P [Catalytic activity/Vol] 20 U/L Normal 10 - 49 U/L [facility].; [facility], [facility]. ALT With P-5'-P [Catalytic activity/Vol] 20 U/L Normal 10 - 49 U/L [facility].; [facility], [facility]. AST [Catalytic activity/Vol] 10 U/L Normal 8 - 34 U/L [facility], [facility].; [facility], [facility]. AST With P-5'-P [Catalytic activity/Vol] 10 U/L Normal 8 - 34 U/L [facility], [facility].; [facility], [facility]. Bilirubin [Mass/Vol] 0.4 mg/dL Normal 0.2 - 1.2 mg/dL [facility]; [facility] Calcium [Mass/Vol] 10.1 mg/dL Normal 8.4 - 10. 1 mg/dL [facility]; [facility] Chloride [Moles/Vol] 106 mmol/L Normal 98 - 110 meq/L [facility]; [facility] CO2 [Moles/Vol] 24 mmol/L Normal 22 - 32 meq/L [facility]; [facility] Creatinine [Mass/Vol] 0.70 mg/dL Normal 0.50 - 1.20 mg/dL [facility]; [facility] GFR/1.73 sq M.predicted among blacks MDRD (S/P/Bld) [Vol rate/Area] mL/min/{1.73_m2} Normal [facility]; [facility] Work Phone: GFR/1.73 sq M.predicted among non-blacks MDRD (S/P/Bld) [Vol rate/Area] mL/min/{1.73_m2} Normal [facility].; [facility], [facility] Work Phone: Globulin (S) [Mass/Vol] 3.9 g/dL Abnormal 1.5 - 3.8 g/ dL [facility]; [facility] Glucose [Mass/Vol] 85 mg/dL Normal 70 - 110 mg/dL [facility]; [facility] Potassium [Moles/Vol] 4.1 mmol/L Normal 3.5 - 5.0 meq/ L [facility]; [facility], [facility] Protein [Mass/Vol] 7.8 g/dL Normal 6.0 - 8.5 g/dL [facility].; [facility] Sodium [Moles/Vol] 142 mmol/L Normal 136 - 145 meq/L [facility].; [facility] TSH Qn 0.440 m[IU]/L Normal 0.360 - 3.740 {mcIU/mL} [facility].; [facility] Urea nitrogen [Mass/Vol] 10.0 mg/dL Normal 8.0 - 22.0 mg/dL [facility]; [facility] Urea nitrogen/Creatinine [Mass ratio] 14.3 {ratio} Normal 10.0 - 22.0 {ratio} [facility].; [facility] Laboratory - Hematology and Cell countson 10-19-2017 Basophils (Bld) [#/Vol] 0.00 {10^3/mcL} Normal 0 .00 - 0.27 {10^3/mcL} [facility].; [facility] Work Phone: Basophils/100 WBC (Bld) 0.4 % Normal 0.0 - 2.5 % [facility]; [facility] Work Phone: Eosinophils (Bld) [#/Vol] 0.00 {10^3/mcL} Normal 0.00 - 0.65 {10^3/mcL} [facility].; [facility] Work Phone: Eosinophils/100 WBC (Bld) 0.4 % Normal 0.0 - 6.0 % [facility].; [facility] Work Phone: Erythrocyte distribution width (RBC) [Ratio] 14.6 % Normal 11.5 - 15.5 % [facility].; [facility] Hematocrit (Bld) [Volume fraction] 38.0 % Normal 34.0 - 46.0 % [facility]; [facility] Hemoglobin (Bld) [Mass/Vol] 12.6 g/dL Normal 12.0 - 16.0 g/dL [facility].; [facility], [facility] Lymphocytes (Bld) [#/Vol] 1.30 {10^3/mcL} Normal 0.90 - 4.32 {10^3/mcL} [facility].; [facility] Work Phone: Lymphocytes/100 WBC (Bld) 16.8 % Abnormal 20.0 - 40.0 % [facility].; [facility] Work Phone: MCH (RBC) [Entitic mass] 26.8 pg Abnormal 27.0 - 33.0 pg [facility].; [facility], [facility] MCHC (RBC) [Mass/Vol] 33.0 g/dL Normal 32.0 - 36.0 g/dL [facility].; [facility], [facility] MCV (RBC) [Entitic vol] 81.1 fL Normal 80.0 - 99.0 fL [facility]; [facility] Monocytes (Bld) [#/Vol] 0.50 {10^3/mcL} Normal 0 .09 - 1.40 {10^3/mcL} [facility].; [facility], [facility]. Work Phone: Monocytes/100 WBC (Bld) 6.9 % Normal 2.0 - 13.0 % [facility].; [facility]. Work Phone: Neutrophils (Bld) [#/Vol] 6.00 {10^3/mcL} Normal 2.25 - 8.10 {10^3/mcL} [facility].; [facility]. Work Phone: Neutrophils/100 WBC (Bld) 75.5 % Abnormal 50.0 - 75.0 % [place] [facility] [employer]. Work Phone: Platelet mean volume (Bld) [Entitic vol] 10.0 fL Normal 6.6 - 10.5 fL [facility] [employer].; [facility] [employer]. Platelets (Bld) [#/Vol] 316 {10^3/mcL} Normal 15 0 - 450 {10^3/mcL} [facility] [employer].; [facility] [employer] RBC (Bld) [#/Vol] 4.69 {10^6/mcL} Normal 4.10 - 5.30 {10^6/mcL} [place] [employer] WBC (Bld) [#/Vol] 8.00 {10^3/mcL} Normal 4.50 - 10.80 {10^3/mcL} [place] [facility] [employer]. No Panel Informationon 10-19 Electrolyte Balance 12.0 meq/L Normal 4.0 - 15 .0 meq/L [facility] [employer].; [employer] [facility] [employer]. Eosinophil, Absolute 0.00 {10^3/mcL} Normal 0.00 - 0.65 {10^3/mcL} [place] [facility] [employer] Work Phone: Laboratory - Chemistry and C hemistry - challengeon 07-13-2017 Hemoglobin.gastrointest inal Ql (Stl) Negative Normal [place].; [facility] [employer] [facility] [employer] Laboratory - Coagulationon 0 07-08-2017 Clotting time.intrinsic coagulation system activated Rotational TEG (Bld) 80.4 {sec} Abnormal 43.0 - 78.0 {sec} [place].; [employer] [facility] [employer] Work Phone: Laboratory - Hematology and Cell countson 07-08-2017 Basophils (Bld) [#/Vol] 0.00 {x10EE3/UL} Normal 0.00 - 0.10 {x10EE3/UL} [facility] [email or web address]; [facility] Work Phone: Basophils/100 WBC (Bld) 0.5 % Normal 0.0 - 2.0 % [facility] [email or web address]; [facility]. Work Phone: Eosinophils (Bld) [#/Vol] 0.20 {x10EE3/UL} Normal 0.00 - 0.50 {x10EE3/UL} [facility].; [facility]. Work Phone: Eosinophils/100 WBC (Bld) 2.6 % Normal 0.0 - 7.0 % [facility] [email or web address]; [facility]. Work Phone: Erythrocyte distribution width (RBC) [Ratio] 13.9 % Normal 12.0 - 15.6 % [facility] HospitalL[facility]; [facility] Work Phone: Hematocrit (Bld) [Volume fraction] 34.5 % Normal 34.0 - 46.0 % [facility] HospitalL[facility]; [facility] Work Phone: Hemoglobin (Bld) [Mass/Vol] 11.5 g/dL Abnormal 12.0 - 16.0 g/dL [facility] [email or web address]; [facility]. Work Phone: Lymphocytes (Bld) [#/Vol] 2.50 {x10EE3/UL} Normal 0.80 - 2.80 {x10EE3/UL} [facility] HospitalLing[facility]ub; [facility] ClinicsBio[facility]. Work Phone: Lymphocytes/100 WBC (Bld) 26.3 % Normal 20.0 - 45.0 % [facility].; [facility]. Work Phone: MCH (RBC) [Entitic mass] 27 pg Normal 27 - 33 pg [facility].; [facility]. Work Phone: MCHC (RBC) [Mass/Vol] 33 {X10_3} Normal 32 - 36 {X10_3 } [facility].; [facility]. Work Phone: MCV (RBC) [Entitic vol] 81 fL Normal 80 - 99 fL [facility].; [facility]. Work Phone: Monocytes (Bld) [#/Vol] 0.60 {x10EE3/UL} Normal 0.20 - 1.00 {x10EE3/UL} [facility].; [facility]. Work Phone: Monocytes/100 WBC (Bld) 6.5 % Normal 0.0 - 10.0 % [facility] HospitalBio[facility].; [facility]. Work Phone: Morphology Osei (Bld) [Interp] N/A Normal [facility].; [facility]. Work Phone: Neutrophils (Bld) [#/Vol] 6.10 {x10EE3/UL} Normal 1.50 - 7.10 {x10EE3/UL} [facility].; [facility]. Work Phone: Neutrophils/100 WBC (Bld) 64.1 % Normal 46.0 - 76.0 % [facility].; [facility]icsBio[employer]. Work Phone: Platelet mean volume (Bld) [Entitic vol] 9.5 fL Normal 6.6 - 10.5 fL [facility].; [facility] Healthcare[facility]. Work Phone: Platelets (Bld) [#/Vol] 299 {x10EE3/UL} Normal 1 50 - 450 {x10EE3/UL} [facility] [employer].; [facility]. Work Phone: RBC (Bld) [#/Vol] 4.28 {x_10EE6/UL} Normal 4.10 - 5.30 {x_10EE6/UL} [facility] [employer].; [facility] [employer]. Work Phone: WBC (Bld) [#/Vol] 9.5 {x_10EE3/UL} Normal 4.5 - 10.8 {x_10EE3/UL} [facility].; [facility] [employer]. Work Phone: No Panel Informationon 07-08 MANUAL DIFF N/A Normal [facility]; [facility] [employer]. Work Phone: Laboratory - Coagulationon 0 07-07-2017 Clotting time.intrinsic coagulation system activated Rotational TEG (Bld) 65.8 {sec} Normal 43.0 - 78.0 {sec} [facility].; [facility] [employer]. Work Phone: Laboratory - Hematology and Cell countson 07-07-2017 Basophils (Bld) [#/Vol] 0.00 {x10EE3/UL} Normal 0.00 - 0.10 {x10EE3/UL} [employer] [facility].; [facility] [employer]. Work Phone: Basophils/100 WBC (Bld) 0.5 % Normal 0.0 - 2.0 % [facility].; [facility] [employer]. Work Phone: Eosinophils (Bld) [#/Vol] 0.20 {x10EE3/UL} Normal 0.00 - 0.50 {x10EE3/UL} [facility]; [facility] Work Phone: Eosinophils/100 WBC (Bld) 2.0 % Normal 0.0 - 7.0 % [facility]; [facility] Work Phone: Erythrocyte distribution width (RBC) [Ratio] 14.2 % Normal 12.0 - 15.6 % [facility]; [facility] Work Phone: Hematocrit (Bld) [Volume fraction] 33.3 % Abnormal 34.0 - 46.0 % [facility]; [facility] Work Phone: Hemoglobin (Bld) [Mass/Vol] 11.1 g/dL Abnormal 12.0 - 16.0 g/dL [facility]; [facility]. Work Phone: Lymphocytes (Bld) [#/Vol] 2.40 {x10EE3/UL} Normal 0.80 - 2.80 {x10EE3/UL} [facility].; [facility]. Work Phone: Lymphocytes/100 WBC (Bld) 24.1 % Normal 20.0 - 45.0 % [facility]; [facility] Work Phone: MCH (RBC) [Entitic mass] 27 pg Normal 27 - 33 pg [facility]; [facility] Work Phone: MCHC (RBC) [Mass/Vol] 33 {X10_3} Normal 32 - 36 {X10_3 } [facility]; [facility] ClinicsBio[facility]. Work Phone: MCV (RBC) [Entitic vol] 81 fL Normal 80 - 99 fL E [facility] HospitalBio[facility].; [facility]icsBio[facility]. Work Phone: Monocytes (Bld) [#/Vol] 0.70 {x10EE3/UL} Normal 0.20 - 1.00 {x10EE3/UL} [facility].; [facility]icsBio[facility]. Work Phone: Monocytes/100 WBC (Bld) 6.9 % Normal 0.0 - 10.0 % [facility] HospitalBio[facility].; [facility]. Work Phone: Morphology Osei (Bld) [Interp] N/A Normal [facility] HospitalBio[facility].; [facility]. Work Phone: Neutrophils (Bld) [#/Vol] 6.50 {x10EE3/UL} Normal 1.50 - 7.10 {x10EE3/UL} [facility]Bio[facility].; [facility]. Work Phone: Neutrophils/100 WBC (Bld) 66.5 % Normal 46.0 - 76.0 % [facility] HospitalBio[facility].; [facility]. Work Phone: Platelet mean volume (Bld) [Entitic vol] 9.5 fL Normal 6.6 - 10.5 fL [facility] Info [facility] HealthcareBio[facility].; [facility]. Work Phone: Platelets (Bld) [#/Vol] 290 {x10EE3/UL} Normal 1 50 - 450 {x10EE3/UL} [facility].; [facility]icsBio[facility]. Work Phone: RBC (Bld) [#/Vol] 4.10 {x_10EE6/UL} Normal 4.10 - 5.30 {x_10EE6/UL} [place].; [facility] [employer]. Work Phone: WBC (Bld) [#/Vol] 9.8 {x_10EE3/UL} Normal 4.5 - 10.8 {x_10EE3/UL} [facility].; [facility] [employer]. Work Phone: No Panel Informationon 07-07 MANUAL DIFF N/A Normal [facility]; [facility] [employer]. Work Phone: Laboratory - Coagulationon 0 07-06-2017 Clotting time.intrinsic coagulation system activated Rotational TEG (Bld) 61.0 {sec} Normal 43.0 - 78.0 {sec} [facility] [employer].; [employer] [facility]. Work Phone: Clotting time.intrinsic coagulation system activated Rotational TEG (Bld) 61.6 {sec} Normal 43.0 - 78.0 {sec} [place].; [employer] [facility] [employer]. Work Phone: Laboratory - Hematology and Cell countson 07-06-2017 Basophils (Bld) [#/Vol] 0.10 {x10EE3/UL} Normal 0.00 - 0.10 {x10EE3/UL} [place].; [facility] [employer]. Work Phone: Basophils/100 WBC (Bld) 0.7 % Normal 0.0 - 2.0 % [place]; [employer] [facility] [employer]. Work Phone: Eosinophils (Bld) [#/Vol] 0.10 {x10EE3/UL} Normal 0.00 - 0.50 {x10EE3/UL} [facility] [employer].; [facility] [employer]. Work Phone: Eosinophils/100 WBC (Bld) 1.7 % Normal 0.0 - 7.0 % [facility]; [facility] Work Phone: Erythrocyte distribution width (RBC) [Ratio] 14.1 % Normal 12.0 - 15.6 % [facility]; [facility]. Work Phone: Hematocrit (Bld) [Volume fraction] 33.2 % Abnormal 34.0 - 46.0 % [facility].; [facility] Work Phone: Hemoglobin (Bld) [Mass/Vol] 11.1 g/dL Abnormal 12.0 - 16.0 g/dL [facility]; [facility] Work Phone: Lymphocytes (Bld) [#/Vol] 2.80 {x10EE3/UL} Normal 0.80 - 2.80 {x10EE3/UL} [facility].; [facility]. Work Phone: Lymphocytes/100 WBC (Bld) 32.2 % Normal 20.0 - 45.0 % [facility]; [facility] Work Phone: MCH (RBC) [Entitic mass] 27 pg Normal 27 - 33 pg [facility]; [facility] Work Phone: MCHC (RBC) [Mass/Vol] 33 {X10_3} Normal 32 - 36 {X10_3 } [facility].; [facility]. Work Phone: MCV (RBC) [Entitic vol] 80 fL Normal 80 - 99 fL E [facility].; [facility] Work Phone: Monocytes (Bld) [#/Vol] 0.80 {x10EE3/UL} Normal 0.20 - 1.00 {x10EE3/UL} [facility].; [facility]. Work Phone: Monocytes/100 WBC (Bld) 8.7 % Normal 0.0 - 10.0 % [facility].; [facility]. Work Phone: Morphology Osei (Bld) [Interp] N/A Normal [facility].; [facility]. Work Phone: Neutrophils (Bld) [#/Vol] 4.90 {x10EE3/UL} Normal 1.50 - 7.10 {x10EE3/UL} [facility].; [facility]. Work Phone: Neutrophils/100 WBC (Bld) 56.7 % Normal 46.0 - 76.0 % [facility].; [facility]. Work Phone: Platelet mean volume (Bld) [Entitic vol] 9.5 fL Normal 6.6 - 10.5 fL [facility].; [facility]. Work Phone: Platelets (Bld) [#/Vol] 320 {x10EE3/UL} Normal 1 50 - 450 {x10EE3/UL} [facility].; [facility]. Work Phone: RBC (Bld) [#/Vol] 4.13 {x_10EE6/UL} Normal 4.10 - 5.30 {x_10EE6/UL} [facility] HospitalBio[facility].; [facility]. Work Phone: WBC (Bld) [#/Vol] 8.7 {x_10EE3/UL} Normal 4.5 - 10.8 {x_10EE3/UL} [facility] HospitalLing[facility]ub; [facility]icsBio[employer]. Work Phone: No Panel Informationon 07-06 MANUAL DIFF N/A Normal [facility]; [facility]icsBio[facility]. Work Phone: Laboratory - Chemistry and C hemistry - challengeon 07-05-2017 Anion gap [Moles/Vol] 16 mmol/L Normal 10 - 20 mmol/L [facility] HospitalZ[facility] [email or web address]; [facility]icsBio[employer]. Work Phone: Calcium [Mass/Vol] 9.4 mg/dL Normal 8.6 - 10. 2 mg/dL [facility] HospitalL[facility]; [facility]icsBio[employer]. Work Phone: Chloride [Moles/Vol] 105 mmol/L Normal 98 - 107 mmol/L [facility]; [facility]icsBio[employer]. Work Phone: CO2 [Moles/Vol] 21.1 mmol/L Normal 21.0 - 31.0 mmol/L [facility]; [facility]ics[facility] Work Phone: Creatinine [Mass/Vol] 0.8 mg/dL Normal 0.6 - 1.2 mg/d L [facility]; [facility]icsBio[facility]. Work Phone: GFR/1.73 sq M.predicted among blacks MDRD (S/P/Bld) [Vol rate/Area] mL/min/{1.73_m2} Normal 60 - 999 {ML/MINUTE} [facility]Bio[facility].; [facility]icsBio[facility]. Work Phone: GFR/1.73 sq M.predicted MDRD (S/P/Bld) [Vol rate/Area] mL/min/{1.73_m2} Normal 60 - 999 {ML/MINUTE} [facility]; [facility] Work Phone: Glucose [Mass/Vol] 113 mg/dL Abnormal 74 - 106 mg/dL [facility]; [facility] Work Phone: Potassium [Moles/Vol] 3.7 mmol/L Normal 3.5 - 5.1 mmol/L [facility]; [facility] Work Phone: Sodium [Moles/Vol] 138 mmol/L Normal 136 - 145 mmol/L [facility]; [facility] Work Phone: Urea nitrogen [Mass/Vol] 13 mg/dL Normal 6 - 20 mg/dL [facility]; [facility] Work Phone: Laboratory - Coagulationon 0 07-05-2017 aPTT Coag (Bld) [Time] 23.1 s Normal 21.6 - 35.4 {sec} [facility]; [facility] Work Phone: aPTT Coag (Bld) [Time] 75.3 s Abnormal 21.6 - 35.4 {sec} [facility]; [facility] Work Phone: Clotting time.intrinsic coagulation system activated Rotational TEG (Bld) 64.8 {sec} Normal 43.0 - 78.0 {sec} [facility]; [facility] Work Phone: INR Coag (PPP) [Relative time] 1.1 {INR} Normal 0.8 - 1.2 [facility]; [facility] Work Phone: PT Coag (Bld) [Time] 13.0 s Normal [facility]Bio[facility].; [facility]. Work Phone: Laboratory - Hematology and Cell countson 07-05-2017 Basophils (Bld) [#/Vol] 0.10 {x10EE3/UL} Normal 0.00 - 0.10 {x10EE3/UL} [facility].; [facility]. Work Phone: Basophils/100 WBC (Bld) 0.7 % Normal 0.0 - 2.0 % [facility].; [facility]. Work Phone: CBC panel Auto (Bld) Normal [facility] [email or web address]; [facility]. Work Phone: Eosinophils (Bld) [#/Vol] 0.10 {x10EE3/UL} Normal 0.00 - 0.50 {x10EE3/UL} [facility].; [facility]. Work Phone: Eosinophils/100 WBC (Bld) 0.8 % Normal 0.0 - 7.0 % [facility].; [facility], [facility]. Work Phone: Erythrocyte distribution width (RBC) [Ratio] 13.9 % Normal 12.0 - 15.6 % [facility] HospitalBio[facility].; [facility]. Work Phone: Hematocrit (Bld) [Volume fraction] 38.0 % Normal 34.0 - 46.0 % [facility] HospitalBio[facility].; [facility]. Work Phone: Hemoglobin (Bld) [Mass/Vol] 12.7 g/dL Normal 12.0 - 16.0 g/dL [facility] HospitalBio[facility].; [facility]. Work Phone: Lymphocytes (Bld) [#/Vol] 2.20 {x10EE3/UL} Normal 0.80 - 2.80 {x10EE3/UL} [facility].; [facility]. Work Phone: Lymphocytes/100 WBC (Bld) 19.9 % Abnormal 20.0 - 45.0 % [facility].; [facility]. Work Phone: MCH (RBC) [Entitic mass] 27 pg Normal 27 - 33 pg [facility].; [facility]. Work Phone: MCHC (RBC) [Mass/Vol] 33 {X10_3} Normal 32 - 36 {X10_3 } [facility].; [facility]. Work Phone: MCV (RBC) [Entitic vol] 80 fL Normal 80 - 99 fL E [facility]Bio[facility].; [facility]ics[facility]. Work Phone: Monocytes (Bld) [#/Vol] 1.00 {x10EE3/UL} Normal 0.20 - 1.00 {x10EE3/UL} [facility].; [facility]. Work Phone: Monocytes/100 WBC (Bld) 8.7 % Normal 0.0 - 10.0 % [facility].; [facility]. Work Phone: Morphology Osei (Bld) [Interp] N/A Normal [facility].; [facility]. Work Phone: Neutrophils (Bld) [#/Vol] 7.90 {x10EE3/UL} Abnormal 1.50 - 7.10 {x10EE3/UL} [facility].; [facility]. Work Phone: Neutrophils/100 WBC (Bld) 69.9 % Normal 46.0 - 76.0 % [facility].; [facility] Info [facility]. Work Phone: Platelet mean volume (Bld) [Entitic vol] 9.1 fL Normal 6.6 - 10.5 fL [facility] [employer]. Work Phone: Platelets (Bld) [#/Vol] 389 {x10EE3/UL} Normal 1 50 - 450 {x10EE3/UL} [facility].; [facility] Info [facility]. Work Phone: RBC (Bld) [#/Vol] 4.76 {x_10EE6/UL} Normal 4.10 - 5.30 {x_10EE6/UL} [facility] Info [facility]. Work Phone: WBC (Bld) [#/Vol] 11.3 {x_10EE3/UL} Abnormal 4.5 - 10.8 {x_10EE3/UL} [facility].; [facility] [employer]. Work Phone: No Panel Informationon 07-05 AGE 22 {years} Normal [facility] [employer].; [facility] [employer]. Work Phone: BMP with eGFR Normal [facility] [employer].; [facility] [employer]. Work Phone: MANUAL DIFF N/A Normal [facility] [employer].; [facility] [employer]. Work Phone: PROTHROMBIN TIME AND INR Normal [facility] [employer].; [facility]. Work Phone: Laboratory - Hematology and Cell countson 06-24-2017 Basophils (Bld) [#/Vol] 0.00 {x10EE3/UL} Normal 0.00 - 0.10 {x10EE3/UL} [facility].; [facility] Work Phone: Basophils/100 WBC (Bld) 0.4 % Normal 0.0 - 2.0 % [facility].; [facility]. Work Phone: CBC panel Auto (Bld) Normal [facility]; [facility]. Work Phone: Eosinophils (Bld) [#/Vol] 0.10 {x10EE3/UL} Normal 0.00 - 0.50 {x10EE3/UL} [facility].; [facility]. Work Phone: Eosinophils/100 WBC (Bld) 1.5 % Normal 0.0 - 7.0 % [facility].; [facility]. Work Phone: Erythrocyte distribution width (RBC) [Ratio] 14.0 % Normal 12.0 - 15.6 % [facility] HospitalStarbelly.com; [facility] Work Phone: Hematocrit (Bld) [Volume fraction] 37.4 % Normal 34.0 - 46.0 % [facility].; [facility]. Work Phone: Hemoglobin (Bld) [Mass/Vol] 12.5 g/dL Normal 12.0 - 16.0 g/dL [facility].; [facility] Work Phone: Lymphocytes (Bld) [#/Vol] 1.70 {x10EE3/UL} Normal 0.80 - 2.80 {x10EE3/UL} [facility].; [facility]. Work Phone: Lymphocytes/100 WBC (Bld) 22.4 % Normal 20.0 - 45.0 % [facility].; [facility]. Work Phone: MCH (RBC) [Entitic mass] 27 pg Normal 27 - 33 pg [facility].; [facility]. Work Phone: MCHC (RBC) [Mass/Vol] 34 {X10_3} Normal 32 - 36 {X10_3 } [facility].; [facility]. Work Phone: MCV (RBC) [Entitic vol] 81 fL Normal 80 - 99 fL E [facility].; [facility]. Work Phone: Monocytes (Bld) [#/Vol] 0.60 {x10EE3/UL} Normal 0.20 - 1.00 {x10EE3/UL} [facility].; [facility]. Work Phone: Monocytes/100 WBC (Bld) 8.4 % Normal 0.0 - 10.0 % [facility].; [facility]. Work Phone: Morphology Osei (Bld) [Interp] N/A Normal [facility].; [facility]. Work Phone: Neutrophils (Bld) [#/Vol] 5.20 {x10EE3/UL} Normal 1.50 - 7.10 {x10EE3/UL} [facility].; [facility], [employer]. Work Phone: Neutrophils/100 WBC (Bld) 67.3 % Normal 46.0 - 76.0 % [facility].; [facility]. Work Phone: Platelet mean volume (Bld) [Entitic vol] 9.3 fL Normal 6.6 - 10.5 fL [facility] [employer].; [facility]. Work Phone: Platelets (Bld) [#/Vol] 276 {x10EE3/UL} Normal 1 50 - 450 {x10EE3/UL} [facility].; [facility]. Work Phone: RBC (Bld) [#/Vol] 4.62 {x_10EE6/UL} Normal 4.10 - 5.30 {x_10EE6/UL} [facility].; [facility] Info [facility]. Work Phone: WBC (Bld) [#/Vol] 7.7 {x_10EE3/UL} Normal 4.5 - 10.8 {x_10EE3/UL} [facility].; [facility]. Work Phone: No Panel Informationon 06-24 INTERNAL QC PASS Normal [facility] [employer]; [facility]. Work Phone: MANUAL DIFF N/A Normal [facility].; [facility]. Work Phone: Observation duration YES Normal [facility] [employer].; [facility] Info [facility]. Work Phone: UR Negative Normal [facility].; [facility] Info [facility]. Work Phone: Laboratory - Hematology and Cell countson 07-09-2015 Basophils/100 WBC (Bld) 0.4 % Normal 0.0 - 2.5 % [facility] [employer].; [facility] Eosinophils/100 WBC (Bld) 1.8 % Normal 0.0 - 6.0 % [facility]; [facility], [facility] Erythrocyte distribution width (RBC) [Ratio] 13.5 % Normal 11.5 - 15.5 % [facility]; [facility] Hematocrit (Bld) [Volume fraction] 34.4 % Normal 34.0 - 46.0 % [facility]; [facility], [facility] Hemoglobin (Bld) [Mass/Vol] 11.4 g/dL Abnormal 12.0 - 16.0 g/dL [facility]; [facility], [facility] Lymphocytes/100 WBC (Bld) 18.8 % Abnormal 20.0 - 40.0 % [facility]; [facility], [facility] MCH (RBC) [Entitic mass] 27.3 pg Normal 27.0 - 33.0 pg [facility]; [facility], [facility] MCHC (RBC) [Mass/Vol] 33.1 g/dL Normal 32.0 - 36.0 g/dL [facility].; [facility], [facility]. MCV (RBC) [Entitic vol] 82.4 fL Normal 80.0 - 99.0 fL [facility]; [facility], [facility] Monocytes/100 WBC (Bld) 9.4 % Normal 2.0 - 13.0 % [facility].; [facility], [facility] Neutrophils (Bld) [#/Vol] 5.00 {10_3/mcL} Normal 1.90 - 7.90 {10_3/mcL} [facility].; [facility], [facility] Neutrophils/100 WBC (Bld) 69.6 % Normal 50.0 - 75.0 % [facility].; [facility], [facility] Platelet mean volume (Bld) [Entitic vol] 9.5 fL Normal 6.6 - 10.5 fL [facility]; [facility]. Platelets (Bld) [#/Vol] 305 {10_3/mcL} Normal 15 0 - 450 {10_3/mcL} [facility].; [facility], [facility]. RBC (Bld) [#/Vol] 4.18 {10_6/mcL} Normal 4.10 - 5.30 {10_6/mcL} [facility].; [facility]. WBC (Bld) [#/Vol] 7.10 {10_3/mcL} Normal 4.50 - 10.80 {10_3/mcL} [facility].; [facility], [employer]. Laboratory - Hematology and Cell countson 05-30-2011 Hematocrit (Bld) [Volume fraction] 35.2 % Normal 34.0 - 46.0 % [facility].; [facility]. Work Phone: Hemoglobin (Bld) [Mass/Vol] 11.9 g/dL Abnormal 12.0 - 16.0 g/dL [facility].; [facility]. Work Phone: Vital Signs Date Time Vital Sign Value Performing Clinician Facility 12-26-2024 14:43-0400 Body height 165.[address] Aldo Rodriguez DO Work Phone: [facility] 12-26-2024 14:43-0400 Body mass index (BMI) [Ratio] 41.6 kg/m2 Dr. Aldo Rodriguez DO Work Phone: [facility] 12-26-2024 14:43-0400 Body weight 113.[address] Aldo Rodriguez DO Work Phone: [facility] 12-26-2024 14:38-0400 Diastolic blood pressure 70 mm[Hg] Dr. Aldo Rodriguez DO Work Phone: [facility] 12-26-2024 14:38-0400 Heart rate 77 /min Dr. Aldo Rodriguez DO Work Phone: [facility] 12-26-2024 14:38-0400 Systolic blood pressure 136 mm[Hg] Dr. Aldo Rodriguez DO Work Phone: [facility] 12-22-2024 15:36-0400 Body mass index (BMI) [Ratio] 41.48 kg/m2 Lisandro Palencia MD Work Phone: [facility] 12-22-2024 15:36-0400 Body weight 116.57 kg Lisandro Palencia MD Work Phone: [facility] 12-22-2024 15:36-0400 Diastolic blood pressure 64 mm[Hg] Lisandro Palencia MD Work Phone: [facility] 12-22-2024 15:36-0400 Systolic blood pressure 120 mm[Hg] Lisandro Palencia MD Work Phone: [facility] 12-06-2024 14:28-0400 Body mass index (BMI) [Ratio] 41 kg/m2 Ashley Misrha FEDERAL APPELLATE CLERK.CNM Work Phone: [facility] 12-06-2024 14:28-0400 Body weight 115.21 kg Ashley Mishra FEDERAL APPELLATE CLERK.CNM Work Phone: [facility] 12-06-2024 14:28-0400 Diastolic blood pressure 64 mm[Hg] Ashley Mishra FEDERAL APPELLATE CLERK.CNM Work Phone: [facility] 12-06-2024 14:28-0400 Systolic blood pressure 120 mm[Hg] Ashley Mishra FEDERAL APPELLATE CLERK.CNM Work Phone: [facility] 11-23-2024 15:39-0400 Body mass index (BMI) [Ratio] 41 kg/m2 Yasmin Delvalle MD Work Phone: [facility] 11-23-2024 15:39-0400 Body weight 115.21 kg Yasmin Delvalle MD Work Phone: [facility] 11-23-2024 15:39-0400 Diastolic blood pressure 64 mm[Hg] Yasmin Delvalle MD Work Phone: [facility] 11-23-2024 15:39-0400 Systolic blood pressure 116 mm[Hg] Yasmin Delvalle MD Work Phone: [facility] 10-26-2024 14:39-0400 Body mass index (BMI) [Ratio] 39.71 kg/m2 Yasmin Delvalle MD Work Phone: [facility] 10-26-2024 14:39-0400 Body weight 111.58 kg Yasmin Delvalle MD Work Phone: [facility] 10-26-2024 14:39-0400 Diastolic blood pressure 68 mm[Hg] Yasmin Delvalle MD Work Phone: [facility] 10-26-2024 14:39-0400 Systolic blood pressure 116 mm[Hg] Yasmin Delvalle MD Work Phone: [facility] 10-21-2024 16:22-0400 Body temperature 98.6 [degF] Dr. Aldo Rodriguez DO Work Phone: [facility] 10-21-2024 16:22-0400 Diastolic blood pressure 59 mm[Hg] Dr. Aldo Rodriguez DO Work Phone: [facility] 10-21-2024 16:22-0400 Heart rate 61 /min Dr. Aldo Rodriguez DO Work Phone: [facility] 10-21-2024 16:22-0400 Respiratory rate 22 /min Dr. Aldo Rodriguez DO Work Phone: [facility] 10-21-2024 16:22-0400 SaO2% (BldA) [Mass fraction] 99 % Dr. Aldo Rodriguez DO Work Phone: [facility] 10-21-2024 16:22-0400 Systolic blood pressure 103 mm[Hg] Dr. Aldo Rodriguez DO Work Phone: [facility] 10-21-2024 12:24-0400 Body height 165.[address] Aldo Rodriguez DO Work Phone: [facility] 10-21-2024 12:24-0400 Body mass index (BMI) [Ratio] 41 kg/m2 Dr. Aldo Rodrigeuz DO Work Phone: [facility] 10-21-2024 12:24-0400 Body weight 111.[address] Aldo Rodriguez DO Work Phone: [facility] 10-21-2024 11:40-0400 Body mass index (BMI) [Ratio] 39.93 kg/m2 Ashley Mishra APRN.CNM Work Phone: [facility] 10-21-2024 11:40-0400 Body weight 112.22 kg Ashley Mishra APRN.CNM Work Phone: [facility] 10-21-2024 11:40-0400 Diastolic blood pressure 74 mm[Hg] Ashley Tad FEDERAL APPELLATE CLERK.CNM Work Phone: [facility] 10-21-2024 11:40-0400 Systolic blood pressure 122 mm[Hg] Ashley Tad FEDERAL APPELLATE CLERK.CNM Work Phone: [facility] 09-28-2024 13:47-0400 Body mass index (BMI) [Ratio] 39.77 kg/m2 Ashleyclarissa Mishra FEDERAL APPELLATE CLERK.CNM Work Phone: [facility] 09-28-2024 13:47-0400 Body weight 111.77 kg Ashley Mishra FEDERAL APPELLATE CLERK.CNM Work Phone: [facility] 09-28-2024 13:47-0400 Diastolic blood pressure 70 mm[Hg] Ashley Mishra FEDERAL APPELLATE CLERK.CNM Work Phone: [facility] 09-28-2024 13:47-0400 Systolic blood pressure 110 mm[Hg] Ashley Mishra FEDERAL APPELLATE CLERK.CNM Work Phone: [facility] 09-06-2024 13:23-0400 Body mass index (BMI) [Ratio] 38.9 kg/m2 Ashley Mishra FEDERAL APPELLATE CLERK.CNM Work Phone: [facility] 09-06-2024 13:23-0400 Body weight 109.32 kg Ashley Mishra FEDERAL APPELLATE CLERK.CNM Work Phone: [facility] 09-06-2024 13:23-0400 Diastolic blood pressure 60 mm[Hg] Ashley Mishra FEDERAL APPELLATE CLERK.CNM Work Phone: [facility] 09-06-2024 13:23-0400 Systolic blood pressure 98 mm[Hg] Ashley Mishra FEDERAL APPELLATE CLERK.CNM Work Phone: [facility] 08-09-2024 16:09-0400 Body mass index (BMI) [Ratio] 37.61 kg/m2 Citlaly Rutherford MD Work Phone: [facility] 08-09-2024 16:09-0400 Body weight 105.69 kg Citlaly Rutherford MD Work Phone: [facility] 08-09-2024 16:09-0400 Diastolic blood pressure 60 mm[Hg] Citlaly Rutherford MD Work Phone: [facility] 08-09-2024 16:09-0400 Systolic blood pressure 106 mm[Hg] Citlaly Rutherford MD Work Phone: [facility] 06-27-2024 14:36-0400 Body height 167.6 cm Julia [place] FEDERAL APPELLATE CLERK.MORTGAGE COUNSELOR Work Phone: [facility] 06-27-2024 14:36-0400 Body mass index (BMI) [Ratio] 36.67 kg/m2 Julia [place] FEDERAL APPELLATE CLERK.MORTGAGE COUNSELOR Work Phone: [facility] 06-27-2024 14:36-0400 Body weight 103.06 kg Julia Mir FEDERAL APPELLATE CLERK.MORTGAGE COUNSELOR Work Phone: [facility] Comment on above: weight at home today was 219 06-27-2024 14:36-0400 Diastolic blood pressure 64 mm[Hg] Julia [place] FEDERAL APPELLATE CLERK.MORTGAGE COUNSELOR Work Phone: [facility] 06-27-2024 14:36-0400 Systolic blood pressure 116 mm[Hg] Julia Mir FEDERAL APPELLATE CLERK.MORTGAGE COUNSELOR Work Phone: [facility] 05-26-2024 11:28-0500 Body mass index (BMI) [Ratio] 33.86 kg/m2 Renetta Cabrera FEDERAL APPELLATE CLERK.MORTGAGE COUNSELOR Work Phone: [facility] 05-26-2024 11:28-0500 Body weight 96.62 kg Renetta Cabrera APRN.MORTGAGE COUNSELOR Work Phone: [facility] 05-26-2024 11:28-0500 Diastolic blood pressure 75 mm[Hg] Renetta Cabrera APRN.MORTGAGE COUNSELOR Work Phone: [facility] 05-26-2024 11:28-0500 Heart rate 65 /min Renetta Cabrera APRN.MORTGAGE COUNSELOR Work Phone: [facility] 05-26-2024 11:28-0500 Systolic blood pressure 124 mm[Hg] Renetta Cabrera FEDERAL APPELLATE CLERK.MORTGAGE COUNSELOR Work Phone: [facility] 01-27-2024 15:58-0400 Body mass index (BMI) [Ratio] 35.29 kg/m2 Renetta Cabrera APRN.MORTGAGE COUNSELOR Work Phone: [facility] 01-27-2024 15:58-0400 Body weight 100.7 kg Renetta Cabrera APRN.MORTGAGE COUNSELOR Work Phone: [facility] 01-27-2024 15:58-0400 Diastolic blood pressure 84 mm[Hg] Renetta Santanahrie FEDERAL APPELLATE CLERK.MORTGAGE COUNSELOR Work Phone: [facility] 01-27-2024 15:58-0400 Heart rate 88 /min Renetta Cabrera APRN.MORTGAGE COUNSELOR Work Phone: [facility] 01-27-2024 15:58-0400 Systolic blood pressure 129 mm[Hg] Renetta Cabrera APRN.MORTGAGE COUNSELOR Work Phone: [facility] 11-04-2023 10:10-0400 Body mass index (BMI) [Ratio] 35.93 kg/m2 Renetta Cabrera APRN.MORTGAGE COUNSELOR Work Phone: [facility] 11-04-2023 10:10-0400 Body weight 102.51 kg Renetta Cabrera APRN.MORTGAGE COUNSELOR Work Phone: [facility] 11-04-2023 10:10-0400 Diastolic blood pressure 74 mm[Hg] Renetta Cabrera APRN.MORTGAGE COUNSELOR Work Phone: [facility] 11-04-2023 10:10-0400 Heart rate 74 /min Renetta Cabrera APRN.MORTGAGE COUNSELOR Work Phone: [facility] 11-04-2023 10:10-0400 Systolic blood pressure 133 mm[Hg] Renetta Cabrera APRN.MORTGAGE COUNSELOR Work Phone: [facility] 09-17-2023 14:02-0400 Body mass index (BMI) [Ratio] 39.11 kg/m2 Renetta Cabrera APRN.MORTGAGE COUNSELOR Work Phone: [facility] 09-17-2023 14:02-0400 Body weight 111.58 kg Renetta Cabrera APRN.MORTGAGE COUNSELOR Work Phone: [facility] 09-17-2023 14:02-0400 Diastolic blood pressure 66 mm[Hg] Renetta Cabrera APRN.MORTGAGE COUNSELOR Work Phone: [facility] 09-17-2023 14:02-0400 Heart rate 84 /min Renetta Cabrera APRN.MORTGAGE COUNSELOR Work Phone: [facility] 09-17-2023 14:02-0400 SaO2% (BldA) [Mass fraction] 96 % Renetta Cabrera APRN.MORTGAGE COUNSELOR Work Phone: [facility] 09-17-2023 14:02-0400 Systolic blood pressure 124 mm[Hg] Renetta Cabrera APRN.MORTGAGE COUNSELOR Work Phone: [facility] 09-14-2023 09:10-0400 Body mass index (BMI) [Ratio] 39.52 kg/m2 Yasmin Vero FEDERAL APPELLATE CLERK.MORTGAGE COUNSELOR Work Phone: [facility] 09-14-2023 09:10-0400 Body weight 112.76 kg Yasmin Vero FEDERAL APPELLATE CLERK.MORTGAGE COUNSELOR Work Phone: [facility] 09-14-2023 09:10-0400 Diastolic blood pressure 82 mm[Hg] Yasmin Vero FEDERAL APPELLATE CLERK.MORTGAGE COUNSELOR Work Phone: [facility] 09-14-2023 09:10-0400 Heart rate 70 /min Yasmin Vero FEDERAL APPELLATE CLERK.MORTGAGE COUNSELOR Work Phone: [facility] 09-14-2023 09:10-0400 Respiratory rate 18 /min Yasmin Vero FEDERAL APPELLATE CLERK.MORTGAGE COUNSELOR Work Phone: [facility] 09-14-2023 09:10-0400 SaO2% (BldA) [Mass fraction] 98 % Yasmin Vero FEDERAL APPELLATE CLERK.MORTGAGE COUNSELOR Work Phone: [facility] 09-14-2023 09:10-0400 Systolic blood pressure 147 mm[Hg] Yasmin Vero FEDERAL APPELLATE CLERK.MORTGAGE COUNSELOR Work Phone: [facility] 08-06-2023 13:58-0400 Body mass index (BMI) [Ratio] 39.91 kg/m2 Renetta Cabrera APRN.MORTGAGE COUNSELOR Work Phone: [facility] 08-06-2023 13:58-0400 Body weight 113.85 kg Renetta Cabrera APRN.MORTGAGE COUNSELOR Work Phone: [facility] 08-06-2023 13:58-0400 Diastolic blood pressure 80 mm[Hg] Renetta Cabrera APRN.MORTGAGE COUNSELOR Work Phone: [facility] 08-06-2023 13:58-0400 Heart rate 73 /min Renetta Cabrera APRN.MORTGAGE COUNSELOR Work Phone: [facility] 08-06-2023 13:58-0400 Systolic blood pressure 115 mm[Hg] Renetta Cabrera APRN.MORTGAGE COUNSELOR Work Phone: [facility] 08-05-2023 14:240400 Body height 168.9 cm Yasmin Delvalle MD Work Phone: [facility] 08-05-2023 14:24-040 Body mass index (BMI) [Ratio] 39.91 kg/m2 Yasmin Delvalle MD Work Phone: [facility] 08-05-2023 14:24040 Body weight 113.85 kg Yasmin Delvalle MD Work Phone: [facility] 08-05-2023 14:240400 Diastolic blood pressure 82 mm[Hg] Yasmin Delvalle MD Work Phone: [facility] 08-05-2023 14:24040 Systolic blood pressure 116 mm[Hg] Yasmin Delvalle MD Work Phone: [facility] 07-15-2023 10:03040 Body weight 115.12 kg Renetta Cabrera APRN.MORTGAGE COUNSELOR Work Phone: [facility] 07-15-2023 10:03-0400 Diastolic blood pressure 74 mm[Hg] Renetta Cabrera APRN.MORTGAGE COUNSELOR Work Phone: [facility] 07-15-2023 10:03-0400 Heart rate 68 /min Renetta Cabrera APRN.MORTGAGE COUNSELOR Work Phone: [facility] 07-15-2023 10:03-0400 SaO2% (BldA) [Mass fraction] 97 % Renetta Cabrera APRN.MORTGAGE COUNSELOR Work Phone: [facility] 07-15-2023 10:03-0400 Systolic blood pressure 122 mm[Hg] Renetta Cabrera APRN.MORTGAGE COUNSELOR Work Phone: [facility] 06-30-2023 12:21-0400 Body height 168.[address] [facility] 06-30-2023 12:210400 Body weight 116.[address] [facility] 04-17-2023 14:050 Body weight 117.48 kg Yasmin Delvalle MD Work Phone: [facility] 04-17-2023 14:29-0500 Diastolic blood pressure 74 mm[Hg] Yasmin Delvalle MD Work Phone: [facility] 04-17-2023 14:29-0500 Systolic blood pressure 112 mm[Hg] Yasmin Delvalle MD Work Phone: [facility] 01-23-2023 10:33-0400 Body temperature 98.6 [degF] RJ BOGGS REPOSSESSOR-BC Work Phone: [facility].; [facility] Info [facility] Comment on above: Method: Oral 01-23-2023 10:33-0400 Body weight 112.04 kg RJ BOGGS REPOSSESSOR-BC Work Phone: [facility].; [facility] Info [facility]. 01-23-2023 10:33-0400 Diastolic blood pressure 78 mm[Hg] RJ BOGGS REPOSSESSOR-BC Work Phone: [facility] Info [facility].; [facility] Info [facility]. Comment on above: Patient Position: Sitting; Cuff Location : Left Arm; Cuff Size: Standard 01-23-2023 10:33-0400 Heart rate 79 /min RJ FLAKITA REPOSSESSOR-BC Work Phone: [facility].; [place] [employer] [facility]. Comment on above: Pattern: Regular 01-23-2023 10:33-0400 Systolic blood pressure 129 mm[Hg] RJ FLAKITA REPOSSESSOR-BC Work Phone: [employer] [facility].; [place] [employer] [facility] [employer]. Comment on above: Patient Position: Sitting; Cuff Location : Left Arm; Cuff Size: Standard 06-18-2022 08:07-0500 Body temperature 98.2 [degF] Gilbert Vail APRN.CNP Work Phone: [facility] 06-18-2022 08:07-0500 Body weight 99.79 kg Gilbert Vail APRN.MORTGAGE COUNSELOR Work Phone: [facility] 06-18-2022 08:07-0500 Diastolic blood pressure 86 mm[Hg] Gilbert Vail APRN.MORTGAGE COUNSELOR Work Phone: [facility] 06-18-2022 08:07-0500 Heart rate 73 /min Gilbert Vail APRN.MORTGAGE COUNSELOR Work Phone: [facility] 06-18-2022 08:07-0500 Respiratory rate 16 /min Gilbert Vail APRN.MORTGAGE COUNSELOR Work Phone: [facility] 06-18-2022 08:07-0500 SaO2% (BldA) [Mass fraction] 98 % Gilbert Vail APRN.MORTGAGE COUNSELOR Work Phone: [facility] 06-18-2022 08:07-0500 Systolic blood pressure 133 mm[Hg] Gilbert Vail APRN.MORTGAGE COUNSELOR Work Phone: [facility] 11-14-2020 11:17-0400 Body height 165.1 cm RJ BOGGS REPOSSESSOR- Work Phone: [employer] [facility].; [employer] [facility] [employer] [facility]. 11-14-2020 11:17-0400 Body mass index (BMI) [Ratio] 31.95 kg/m2 RJ BOGGS REPOSSESSOR- Work Phone: [facility] [employer] [facility].; [employer] [facility] [employer]. 11-14-2020 11:17-0400 Body surface area Derived from formula 1.94 m2 RJ BOGGS REPOSSESSOR- Work Phone: [employer]. 11-14-2020 11:17-0400 Body weight 87.09 kg RJ BOGGS REPOSSESSOR-BC Work Phone: [facility] [employer] [facility].; [employer]. 11-14-2020 11:17-0400 Diastolic blood pressure 70 mm[Hg] RJ BOGGS REPOSSESSOR-BC Work Phone: [facility]; [employer] [facility] Info [facility]. Comment on above: Patient Position: Sitting; Cuff Location : Right Arm; Cuff Size: Standard 11-14-2020 11:17-0400 Heart rate 69 /min RJ BOGGS REPOSSESSOR-BC Work Phone: [facility]; [employer] [facility] Info [facility]. Comment on above: Pattern: Regular 11-14-2020 11:17-0400 Inhaled oxygen concentration 21 % RJ BOGGS REPOSSESSOR-BC Work Phone: [facility]; [employer] [facility] Info [facility]. Comment on above: Room air 11-14-2020 11:17-0400 Respiratory rate 16 /min RJ BOGGS REPOSSESSOR-BC Work Phone: [facility]; [employer] [facility] Info [facility]. Comment on above: Pattern: Unlabored 11-14-2020 11:17-0400 SaO2% (BldA) [Mass fraction] 98 % RJ BOGGS REPOSSESSOR-BC Work Phone: [facility]; [employer] [facility] Info [facility]. 11-14-2020 11:17-0400 Systolic blood pressure 116 mm[Hg] RJ BOGGS REPOSSESSOR-BC Work Phone: [facility]; [employer] [facility] Info [facility]. Comment on above: Patient Position: Sitting; Cuff Location : Right Arm; Cuff Size: Standard 09-17-2020 14:05-0400 Body height 165.1 cm Dara Tee Boggs [facility] Info [facility].; [facility]. 09-17-2020 14:05-0400 Body mass index (BMI) [Ratio] 32.52 kg/m2 Dara Tee Boggs [facility].; [facility] Info [facility]. 09-17-2020 14:05-0400 Body surface area Derived from formula 1.96 m2 Dara Sorensen [employer] [facility].; [place] [employer] [facility] [employer] [facility] 09-17-2020 14:05-0400 Body weight 88.63 kg Dara Sorensen Mas Info [facility].; [facility] Info [facility] 09-17-2020 14:05-0400 Diastolic blood pressure 67 mm[Hg] Dara Sorensen [employer] [facility].; [facility] Info [facility] Comment on above: Patient Position: Sitting; Cuff Location : Left Arm; Cuff Size: Standard 09-17-2020 14:05-0400 Heart rate 56 /min Dara Sorensen [employer] [facility] Inc.; [place] [employer] [facility] Info [facility] Comment on above: Pattern: Regular 09-17-2020 14:05-0400 Systolic blood pressure 100 mm[Hg] Dara Sorensen [employer] [facility] Inc.; [place] [employer] [facility] Info [facility] Comment on above: Patient Position: Sitting; Cuff Location : Left Arm; Cuff Size: Standard 11-16-2017 11:23-0400 Body height 165.1 cm RJ BOGGS [employer] Work Phone: [employer] [place] [employer] 11-16-2017 11:23-0400 Body mass index (BMI) [Ratio] 40.94 kg/m2 RJ BOGGS REPOSSESSOR-BC Work Phone: [employer] [place] [employer] [facility] [employer] 11-16-2017 11:23-0400 Body surface area Derived from formula 2.16 m2 RJ Headright GamesP-C[employer] Work Phone: [employer].; [place] [employer] 11-16-2017 11:23-0400 Body weight 111.59 kg RJ Headright GamesP-BC Work Phone: [employer].; [place] [employer] 11-16-2017 11:23-0400 Diastolic blood pressure 82 mm[Hg] RJ BOGGS REPOSSESSOR-BC Work Phone: [employer].; [facility] [employer]. Comment on above: Patient Position: Sitting; Cuff Location : Left Arm; Cuff Size: Large 11-16-2017 11:23-0400 Heart rate 73 /min RJ BOGGS REPOSSESSOR-BC Work Phone: [employer].; [facility] [employer] Comment on above: Pattern: Regular 11-16-2017 11:23-0400 Systolic blood pressure 123 mm[Hg] RJ BOGGS REPOSSESSOR-BC Work Phone: [employer].; [facility] [employer] Comment on above: Patient Position: Sitting; Cuff Location : Left Arm; Cuff Size: Large 10-19-2017 11:20-0400 Body height 165.1 cm Dara Tee [employer].; [facility] [employer] 10-19-2017 11:20-0400 Body mass index (BMI) [Ratio] 41.27 kg/m2 Dara Tee [employer], [employer].; [facility] [employer] 10-19-2017 11:20-0400 Body surface area Derived from formula 2.17 m2 Dara Tee [employer].; [facility] [employer] 10-19-2017 11:20-0400 Body weight 112.49 kg Dara Tee [employer].; [facility] [employer] 10-19-2017 11:20-0400 Diastolic blood pressure 73 mm[Hg] Dara Tee [employer].; [facility] [employer] Comment on above: Patient Position: Sitting; Cuff Location : Left Arm; Cuff Size: Large 10-19-2017 11:20-0400 Heart rate 68 /min Dara Tee [employer].; [facility] [employer] Comment on above: Pattern: Regular 10-19-2017 11:20-0400 Systolic blood pressure 138 mm[Hg] Dara Boggs [facility] [employer] [facility].; [facility]. Comment on above: Patient Position: Sitting; Cuff Location : Left Arm; Cuff Size: Large 08-13-2017 11:54-0400 Diastolic blood pressure 90 mm[Hg] RJ BOGGS REPOSSESSOR-BC Work Phone: [employer] [place] [employer] [facility] [employer] Comment on above: Patient Position: Sitting; Cuff Location : Left Arm; Cuff Size: Large 08-13-2017 11:54-0400 Heart rate 89 /min RJ BOGGS REPOSSESSOR-BC Work Phone: [employer].; [facility] [employer] Comment on above: Pattern: Regular 08-13-2017 11:54-0400 Systolic blood pressure 142 mm[Hg] RJ BOGGS REPOSSESSOR-BC Work Phone: [facility] [employer].; [place] [employer] [facility] [employer]. Comment on above: Patient Position: Sitting; Cuff Location : Left Arm; Cuff Size: Large 08-10-2017 13:24-0400 Body height 165.1 cm RJ BOGGS REPOSSESSOR-BC Work Phone: [employer].; [employer] 08-10-2017 13:24-0400 Body mass index (BMI) [Ratio] 42.43 kg/m2 RJ BOGGS REPOSSESSOR-BC Work Phone: [employer].; [employer] 08-10-2017 13:24-0400 Body surface area Derived from formula 2.19 m2 RJ BOGGS REPOSSESSOR-BC Work Phone: [employer].; [employer]. 08-10-2017 13:24-0400 Body weight 115.67 kg RJ BOGGS REPOSSESSOR-BC Work Phone: [employer].; [employer]. 08-10-2017 13:24-0400 Diastolic blood pressure 86 mm[Hg] RJ Headright GamesP-BC Work Phone: [employer].; [place] [employer]. Comment on above: Patient Position: Sitting; Cuff Location : Left Arm; Cuff Size: Large 08-10-2017 13:24-0400 Heart rate 104 /min RJ BOGGS REPOSSESSOR-BC Work Phone: [employer].; [employer]. Comment on above: Pattern: Regular 08-10-2017 13:24-0400 Systolic blood pressure 180 mm[Hg] RJ Headright GamesP-BC Work Phone: [employer].; [place] [employer]. Comment on above: Patient Position: Sitting; Cuff Location : Left Arm; Cuff Size: Large 07-13-2017 13:40-0400 Body height 165.1 cm RJ Headright GamesP-BC Work Phone: [employer].; [place] [employer] [facility] [employer] 07-13-2017 13:40-0400 Body mass index (BMI) [Ratio] 42.43 kg/m2 RJ Headright GamesP-BC Work Phone: [employer].; [place] [employer] [facility] [employer] 07-13-2017 13:40-0400 Body surface area Derived from formula 2.19 m2 RJ Headright GamesP-BC Work Phone: [employer].; [facility] SCIenergy [facility] [employer] 07-13-2017 13:40-0400 Body weight 115.67 kg RJ Headright GamesP-BC Work Phone: [employer].; [facility] [employer]. 07-13-2017 13:40-0400 Diastolic blood pressure 80 mm[Hg] RJ Headright GamesP-BC Work Phone: [employer].; [place] [employer] [facility] [employer]. Comment on above: Patient Position: Sitting; Cuff Location : Left Arm; Cuff Size: Large 07-13-2017 13:40-0400 Heart rate 84 /min RJ BOGGS REPOSSESSOR-BC Work Phone: [employer].; [place] [employer] [facility] [employer]. Comment on above: Pattern: Regular 07-13-2017 13:40-0400 Systolic blood pressure 120 mm[Hg] RJ BOGGS REPOSSESSOR-BC Work Phone: [employer].; [place] [employer] [facility] [employer]. Comment on above: Patient Position: Sitting; Cuff Location : Left Arm; Cuff Size: Large 04-20-2017 11:14-0500 Body temperature 97.7 [degF] RJ BOGGS REPOSSESSOR-BC Work Phone: [employer].; [facility] [employer]. Comment on above: Method: Oral 04-20-2017 11:14-0500 Body weight 115.85 kg RJ BOGGS REPOSSESSOR-BC Work Phone: [employer].; [employer]. 04-20-2017 11:14-0500 Diastolic blood pressure 91 mm[Hg] RJ BOGGS REPOSSESSOR-BC Work Phone: [employer].; [facility] [employer]. Comment on above: Patient Position: Sitting; Cuff Location : Left Arm; Cuff Size: Large 04-20-2017 11:14-0500 Heart rate 79 /min RJ BOGGS REPOSSESSOR-BC Work Phone: [employer].; [employer]. Comment on above: Pattern: Regular 04-20-2017 11:14-0500 Inhaled oxygen concentration 21 % RJ BOGGS REPOSSESSOR-BC Work Phone: [employer].; [employer]. Comment on above: Room air 04-20-2017 11:14-0500 SaO2% (BldA) [Mass fraction] 98 % RJ BOGGS REPOSSESSOR-BC Work Phone: [employer]; [employer]. 04-20-2017 11:14-0500 Systolic blood pressure 146 mm[Hg] RJ BOGGS REPOSSESSOR-BC Work Phone: [employer].; [employer]. Comment on above: Patient Position: Sitting; Cuff Location : Left Arm; Cuff Size: Large 08-19-2016 08:52-0400 Body height 165.1 cm RJ BOGGS REPOSSESSOR-BC Work Phone: [employer]; [facility] [employer] 08-19-2016 08:52-0400 Body mass index (BMI) [Ratio] 41.77 kg/m2 RJ BOGGS REPOSSESSOR-BC Work Phone: [employer]; [facility] [employer]. 08-19-2016 08:52-0400 Body surface area Derived from formula 2.18 m2 RJ BOGGS REPOSSESSOR-BC Work Phone: [employer]; [facility] [employer]. 08-19-2016 08:52-0400 Body weight 113.85 kg RJ BOGGS REPOSSESSOR-BC Work Phone: [employer]; [facility] [employer]. 08-19-2016 08:52-0400 Diastolic blood pressure 85 mm[Hg] RJ BOGGS REPOSSESSOR-BC Work Phone: [employer]; [facility] [employer] Comment on above: Patient Position: Sitting; Cuff Location : Left Arm; Cuff Size: Standard 08-19-2016 08:52-0400 Heart rate 103 /min RJ BOGGS REPOSSESSOR-BC Work Phone: [employer]; [facility] [employer] Comment on above: Pattern: Regular 08-19-2016 08:52-0400 Systolic blood pressure 135 mm[Hg] RJ BOGGS REPOSSESSOR-BC Work Phone: [employer].; [facility] [employer]. Comment on above: Patient Position: Sitting; Cuff Location : Left Arm; Cuff Size: Standard 07-14-2016 10:45-0400 Body height 165.1 cm RJ BOGGS REPOSSESSOR-BC Work Phone: [employer].; [facility] [employer]. 07-14-2016 10:45-0400 Body mass index (BMI) [Ratio] 40.94 kg/m2 RJ BOGGS REPOSSESSOR-BC Work Phone: [employer].; [facility] [employer]. 07-14-2016 10:45-0400 Body surface area Derived from formula 2.16 m2 RJ BOGGS REPOSSESSOR-BC Work Phone: [employer].; [facility] [employer]. 07-14-2016 10:45-0400 Body weight 111.59 kg RJ BOGGS REPOSSESSOR-BC Work Phone: [employer].; [facility] [employer]. 07-14-2016 10:45-0400 Diastolic blood pressure 82 mm[Hg] RJ BOGGS REPOSSESSOR-BC Work Phone: [employer].; [facility] [employer]. Comment on above: Patient Position: Sitting; Cuff Location : Left Arm; Cuff Size: Large 07-14-2016 10:45-0400 Heart rate 76 /min RJ BOGGS REPOSSESSOR-BC Work Phone: [employer].; [facility] [employer]. Comment on above: Pattern: Regular 07-14-2016 10:45-0400 Systolic blood pressure 132 mm[Hg] RJ BOGGS REPOSSESSOR-BC Work Phone: [employer].; [place] [employer] [facility]. Comment on above: Patient Position: Sitting; Cuff Location : Left Arm; Cuff Size: Large 10-22-2015 10:40-0400 Body height 165.1 cm [facility].; [facility] Info [facility] 10-22-2015 10:40-0400 Body mass index (BMI) [Ratio] 41.93 kg/m2 [facility] Info [facility] Inc.; [facility] Inc[facility] 10-22-2015 10:40-0400 Body surface area Derived from formula 2.18 m2 [facility] [place] Info [facility].; [facility] Info [facility]. 10-22-2015 10:40-0400 Body weight 114.31 kg [facility] [place] Info [facility].; [facility] Info [facility]. 10-22-2015 10:40-0400 Diastolic blood pressure 86 mm[Hg] [facility] [place] Info [facility].; [facility] Info [facility]. Comment on above: Patient Position: Sitting; Cuff Location : Left Arm; Cuff Size: Standard 10-22-2015 10:40-0400 Heart rate 81 /min [facility] [place] Info [facility].; [place] [employer] [facility] Info [facility]. Comment on above: Pattern: Regular 10-22-2015 10:40-0400 Systolic blood pressure 131 mm[Hg] [facility] [place] Info [facility].; [facility] Info [facility] Comment on above: Patient Position: Sitting; Cuff Location : Left Arm; Cuff Size: Standard 07-09-2015 10:38-0400 Body height 165.1 cm RJ Headright GamesP-C[employer] Work Phone: [facility].; [facility] [employer] 07-09-2015 10:38-0400 Body mass index (BMI) [Ratio] 42.27 kg/m2 RJ Headright GamesP-BC Work Phone: [facility].; [place] [facility] [place] Find That File. 07-09-2015 10:38-0400 Body surface area Derived from formula 2.19 m2 RJ BOGGS REPOSSESSOR-BC Work Phone: [employer]; [employer]. 07-09-2015 10:38-0400 Body temperature 99.7 [degF] RJ BOGGS REPOSSESSOR-BC Work Phone: [employer]; [employer]. Comment on above: Method: Oral 07-09-2015 10:38-0400 Body weight 115.21 kg RJ BOGGS REPOSSESSOR-BC Work Phone: [employer]; [employer]. 07-09-2015 10:38-0400 Diastolic blood pressure 71 mm[Hg] RJ BOGGS REPOSSESSOR-BC Work Phone: [employer]; [employer]. Comment on above: Patient Position: Sitting; Cuff Location : Left Arm; Cuff Size: Standard 07-09-2015 10:38-0400 Heart rate 71 /min RJ BOGGS REPOSSESSOR-BC Work Phone: [employer]; [employer]. Comment on above: Pattern: Regular 07-09-2015 10:38-0400 Systolic blood pressure 117 mm[Hg] RJ BOGGS REPOSSESSOR-BC Work Phone: [employer]; [employer]. Comment on above: Patient Position: Sitting; Cuff Location : Left Arm; Cuff Size: Standard Encounters Encounter Date Encounter Type Care Provider Facility Start: 01-31-2025 ambulatory [facility] Facility: [facility] Start: 01-27-2025 End: 01-27-2025 ambulatory [facility] Facility:[facility] Start: 01-27-2025 End: 01-27-2025 ambulatory [facility] Facility:[facility] Start: 01-24-2025 End: 01-24-2025 ambulatory [facility] Facility:[facility] Start: 01-19-2025 End: 01-19-2025 ambulatory ASHLEY MISHRA Facility:[facility] Start: 01-19-2025 End: 01-19-2025 ambulatory Lisandro Palencia Facility:[facility] Start: 01-04-2025 End: 01-04-2025 ambulatory YASMIN DELVALLE Facility:[facility] Start: 12-26-2024 End: 12-26-[address] Aldo Rodriguez DO Work Phone: [facility] Start: 12-26-2024 End: 12-26-[address] Lisandro Palencia DO -[facility] Work Phone: Start: 12-26-2024 End: 12-26-2024 Telephone encounter Lisandro Palencia MD Work Phone: OB/Gynecology Comment on above: OB Leaking Fluid Start: 12-22-2024 End: 12-22-2024 Patient encounter procedure Lisandro Palencia MD Work Phone: OB/Gynecology Comment on above: Supervision of high risk , antepartum (HCC) (Primary Dx); Obesity in (HCC); Diet controlled gestational diabetes mellitus (GDM) in third trimester (HCC); 32 weeks gestation of (HCC) 20 weeks gestation o f (HCC); Supervision of high risk , antepartum (HCC); Obesity in (HCC); Diet controlled gestational diabetes mellitus (GDM) in second trimester (HCC) Start: 12-22-2024 End: 12-22-2024 ambulatory LISANDRO PALENCIA Facility:[facility] Start: 12-06-2024 End: 12-06-2024 Patient encounter procedure Ashley Mishra APRN.CNM Work Phone: OB/Gynecology Comment on above: Supervision of high risk , antepartum (HCC) (Primary Dx); 30 weeks gestation of (HCC); Obesity in (HCC); Diet controlled gestational diabetes mellitus (GDM) in second trimester (HCC); Antepartum anemia complicating in third trimester (HCC); Elevated hemoglobin A1c; History of pulmonary embolism; NIVIA on CPAP Start: 12-06-2024 End: 12-07-2024 ambulatory Ashley Mishra APRN.CNM Work Phone: OB/Gynecology Comment on above: BGL Start: 11-23-2024 End: 11-23-2024 ambulatory ASHLEY MISHRA Facility:[facility] Start: 11-23-2024 End: 11-23-2024 Patient encounter procedure Yasmin Delvalle MD Work Phone: OB/Gynecology Comment on above: Supervision of high risk , antepartum (HCC) (Primary Dx); Obesity in (HCC); Diet controlled gestational diabetes mellitus (GDM) in second trimester (HCC) 28 weeks gestation o f (HCC) (Primary Dx); Obesity in (HCC); Suspected problem with growth not found Start: 10-26-2024 End: 10-26-2024 ambulatory YASMIN DELVALLE Facility:[facility] Start: 10-26-2024 End: 12-26-2024 Follow-up encounter Yasmin Delvalle MD Work Phone: OB/Gynecology Start: 10-26-2024 End: 10-26-2024 Patient encounter procedure Yasmin Delvalle MD Work Phone: OB/Gynecology Comment on above: Supervision of high risk , antepartum (HCC) (Primary Dx); 24 weeks gestation of (HCC); Obesity in (HCC); Elevated hemoglobin A1c; headache in second trimester (HCC); History of pulmonary embolism Start: 10-21-2024 End: 10-21-2024 Emergency department patient visit Dr. Aldo Rodriguez DO Work Phone: -Emergency Department Work Phone: Start: 10-21-2024 End: 10-21-2024 Patient encounter procedure Ashley Mishra APRN.CNM Work Phone: OB/Gynecology Comment on above: Supervision of high risk , antepartum (HCC) (Primary Dx); 23 weeks gestation of (HCC); headache in second trimester (HCC) Start: 10-21-2024 End: 10-21-2024 ambulatory ASHLEY MISHRA Facility:[facility] Start: 10-20-2024 End: 10-21-2024 ambulatory Ashley Mishra APRN.CNM Work Phone: OB/Gynecology Comment on above: Headache Start: 09-28-2024 End: 09-28-2024 Patient encounter procedure [employer] 1 Layer [employer] [facility] Comment on above: Obesity in (HCC) (Primary Dx); Encounter for care in first trimester of first (HCC); 7 weeks gestation of (HCC) 20 weeks gestation o f (HCC) (Primary Dx); Supervision of high risk , antepartum (HCC); Obesity in (HCC); Diet controlled gestational diabetes mellitus (GDM) in second trimester (HCC); NIVIA on CPAP; History of pulmonary embolism Start: 09-28-2024 End: 09-28-2024 [facility] Facility:[facility] Start: 09-06-2024 End: 09-06-2024 Patient encounter procedure Ashley Mishra APRN.CNM Work Phone: OB/Gynecology Comment on above: Supervision of high risk , antepartum (HCC) (Primary Dx); 17 weeks gestation of (HCC); Obesity in (HCC); NIVIA on CPAP; History of pulmonary embolism Start: 09-06-2024 End: 09-06-2024 [facility] Facility:[facility] Start: 08-09-2024 End: 08-09-2024 Patient encounter procedure Citlaly Rutherford MD Work Phone: OB/Gynecology Comment on above: Supervision of high risk , antepartum (HCC) (Primary Dx); Pulmonary embolism, unspecified chronicity, unspecified pulmonary embolism type, unspecified whether acute cor pulmonale present (HCC); Obesity in (HCC); 13 weeks gestation of (HCC) Encounter for antena margie screening for malformation using ultrasound (HCC) (Primary Dx); 13 weeks gestation of (HCC) Start: 08-09-2024 End: 08-09-2024 ambulatory [facility] Facility:[facility] Start: 07-19-2024 End: 07-19-2024 [facility] Facility:[id number] Start: 07-13-2024 End: 07-14-2024 ambulatory Julia Hester FEDERAL APPELLATE CLERK.MORTGAGE COUNSELOR Work Phone: OB/Gynecology Comment on above: NIPT testing Start: 07-01-2024 End: 07-01-2024 ambulatory Julia Machucaruben BAUGHN.MORTGAGE COUNSELOR Work Phone: OB/Gynecology Comment on above: Symptoms Start: 06-30-2024 End: 06-30-2024 Telephone encounter Julia Mirleon MONTES DE OCA.MORTGAGE COUNSELOR Work Phone: OB/Gynecology Comment on above: Results Start: 06-27-2024 End: 06-27-2024 ambulatory JULIA COWARD Facility:[facility] Start: 06-27-2024 End: 06-27-2024 Patient encounter procedure Julia Mir TAVON.MORTGAGE COUNSELOR Work Phone: OB/Gynecology Comment on above: Supervision of high risk , antepartum (Primary Dx); 7 weeks gestation of ; with uncertain dates in first trimester; Encounter for care in first trimester of first ; BMI 35.0-35.9,adult Start: 06-27-2024 End: 08-27-2024 Follow-up encounter Julia Hester APRN.SVETLANA Work Phone: OB/Gynecology Comment on above: Results Start: 05-26-2024 End: 05-26-2024 ambulatory Renetta Cabrera APRN.MORTGAGE COUNSELOR Work Phone: OB/Gynecology Comment on above: NIVIA on CPAP (Primary Dx); PCOS (polycystic ovarian syndrome); Class 3 severe obesity with serious comorbidity and body mass index (BMI) of 40.0 to 44.9 in adult, unspecified obesity type (HCC) Start: 05-26-2024 End: 05-26-2024 Telemedicine consultation with patient Renetta Cabrera APRN.SVETLANA Work Phone: OB/Gynecology Start: 02-05-2024 End: 02-05-2024 ambulatory CL [facility] Facility:[id number] Start: 02-03-2024 End: 02-03-2024 ambulatory JULIA COWARD Facility:[id number] Start: 01-27-2024 End: 01-27-2024 Telemedicine consultation with patient Renetta Cabrera APRN.MORTGAGE COUNSELOR Work Phone: OB/Gynecology Start: 01-27-2024 End: 01-28-2024 ambulatory Renetta Cabrera APRN.MORTGAGE COUNSELOR Work Phone: OB/Gynecology Comment on above: NIVIA on CPAP (Primary Dx); PCOS (polycystic ovarian syndrome); Class 3 severe obesity with serious comorbidity and body mass index (BMI) of 40.0 to 44.9 in adult, unspecified obesity type (HCC) Vitals Start: 01-13-2024 End: 01-13-2024 ambulatory CL [facility] Start: 11-04-2023 End: 11-04-2023 ambulatory Renetta Cabrera APRN.MORTGAGE COUNSELOR Work Phone: OB/Gynecology Comment on above: NIVIA on CPAP (Primary Dx); PCOS (polycystic ovarian syndrome); Class 3 severe obesity with serious comorbidity and body mass index (BMI) of 40.0 to 44.9 in adult, unspecified obesity type (HCC) Start: 11-04-2023 End: 11-04-2023 Telemedicine consultation with patient Renetta Cabrera APRN.MORTGAGE COUNSELOR Work Phone: OB/Gynecology Start: 09-17-2023 End: 09-17-2023 Office outpatient visit 25 minutes Renetta Cabrera APRN.MORTGAGE COUNSELOR Work Phone: OB/Gynecology Comment on above: NIVIA on CPAP (Primary Dx); PCOS (polycystic ovarian syndrome); Class 3 severe obesity with serious comorbidity and body mass index (BMI) of 40.0 to 44.9 in adult, unspecified obesity type (HCC); UTI symptoms Start: 09-17-2023 Orders Only Renetta SANDOVAL RN.MORTGAGE COUNSELOR Work Phone: OB/Gynecology Start: 09-14-2023 End: 09-14-2023 Patient encounter procedure Yasmin Pham APRN.MORTGAGE COUNSELOR Work Phone: Neurology Comment on above: NIVIA (obstructive sle ep apnea) (Primary Dx); Insomnia, unspecified type; Obesity, Class II, BMI 35-39.9 Start: 09-10-2023 Telephone encounter Neurology Provid er Neurology Start: 08-06-2023 End: 08-06-2023 Office outpatient visit 25 minutes Renetta Cabrera APRN.MORTGAGE COUNSELOR Work Phone: OB/Gynecology Comment on above: NIVIA (obstructive sle ep apnea) (Primary Dx); PCOS (polycystic ovarian syndrome); Circadian rhythm sleep disorder, shift work type; Excessive daytime sleepiness; Malaise and fatigue; Class 3 severe obesity with serious comorbidity and body mass index (BMI) of 40.0 to 44.9 in adult, unspecified obesity type (HCC) Start: 08-05-2023 End: 08-05-2023 Patient encounter procedure Yasmin Delvalle MD Work Phone: OB/Gynecology Comment on above: Encounter for gyneco logical examination (general) (routine) without abnormal findings (Primary Dx); Screening for cervical cancer; Encounter for screening for human papillomavirus (HPV) Start: 08-05-2023 End: 08-05-2023 Patient encounter status Yasmin Delvalle MD Work Phone: [facility] Start: 07-15-2023 End: 07-15-2023 Patient encounter procedure Renetta Cabrera APRN.MORTGAGE COUNSELOR Work Phone: OB/Gynecology Comment on above: NIVIA (obstructive sle ep apnea) (Primary Dx); PCOS (polycystic ovarian syndrome); Circadian rhythm sleep disorder, shift work type; Excessive daytime sleepiness; Malaise and fatigue; Class 3 severe obesity with serious comorbidity and body mass index (BMI) of 40.0 to 44.9 in adult, unspecified obesity type (HCC) Start: 06-30-2023 End: 06-30-[address] OB/Gynecology Comment on above: Assessment; Patient Education Start: 06-21-2023 ambulatory Yasmin august MD Work Phone: OB/Gynecology Comment on above: Period Start: 06-04-2023 ambulatory Yasmin august MD Work Phone: OB/Gynecology Comment on above: 34 Start: 05-24-2023 End: 05-24-2023 ambulatory MARY MENJIVAR Facility:[id number] Start: 05-22-2023 End: 05-22-2023 ambulatory Yasmin Delvalle MD Work Phone: OB/Gynecology Comment on above: Progesterone Start: 04-17-2023 End: 04-17-2023 Patient encounter procedure Yasmin Delvalle MD Work Phone: OB/Gynecology Comment on above: Oligo-ovulation (Elena kermit Dx); Morbid obesity (HCC); PCOS (polycystic ovarian syndrome) Start: 01-23-2023 End: 01-23-2023 Office outpatient visit 15 minutes RJ BOGGS [facility]- Work Phone: [facility] Start: 12-23-2022 ambulatory Yasmin august MD Work Phone: OB/Gynecology Comment on above: Received Outside [facility] Records Start: 12-05-2022 End: 12-05-2022 ambulatory [facility] Work Phone: Start: 12-05-2022 End: 12-05-2022 Patient encounter procedure [facility]-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, [place]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 Start: 11-05-2022 ambulatory ALFRED Snyder cility:UNI Start: 11-05-2022 ambulatory WW-ALFRED Tao lity:UNI Start: 11-05-2022 End: 11-05-2022 Subsequent hospital visit by physician Alfred Hood APRN.MORTGAGE COUNSELOR Work Phone: [facility] Comment on above: PRE-EMPLOYMENT Start: 11-05-2022 End: 11-05-2022 Subsequent hospital visit by physician Provider [facility] Comment on above: PRE EMPLOY UDS CXR L ABS PFT/[employer] Start: 10-20-2022 ambulatory ALFRED Snyder cility:UNI Start: 10-20-2022 End: 10-20-2022 Subsequent hospital visit by physician Provider [facility] Comment on above: PRE EMPLOYMENT PHYSI SUJATHA/FIRE DEPT [place] Start: 06-18-2022 End: 06-18-2022 Patient encounter procedure Gilbert Vail APRN.MORTGAGE COUNSELOR Work Phone: [facility] Comment on above: Viral upper respirat ory tract infection (Primary Dx) Start: 12-18-2021 ambulatory WW-NICK Nay ESPOSITO Facility:UNI Start: 12-18-2021 End: 12-18-2021 Subsequent hospital visit by physician Provider [facility] Comment on above: 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 [employer] Start: 09-17-2020 End: 09-17-2020 Patient encounter status Elle CHASE MD Work Phone: [employer] [employer] Start: 09-17-2020 End: 09-17-2020 Periodic preventive med est patient 18-39 yrs RJ BOGGS REPOSSESSOR-BC Work Phone: [facility] [employer] Start: 07-23-2020 End: 07-23-2020 Subsequent hospital visit by physician Provider [facility] Comment on above: PRE EMP UDS/ SUGAR[place] [employer] Start: 02-03-2020 End: 02-03-2020 Lab Only RJ BOGGS REPOSSESSOR-BC Work Phone: [facility] [employer] Start: 12-06-2018 End: 12-06-2018 Medication Refill/Order RJ BOGGS REPOSSESSOR-BC Work Phone: [facility] [employer] Start: 06-05-2018 End: 06-05-2018 Historical Summary RJ FLAKITA REPOSSESSOR-BC Work Phone: [place] [employer] Start: 02-03-2018 End: 02-03-2018 Injection/immunization only RJ BOGGS REPOSSESSOR-BC Work Phone: [facility] [employer] Start: 11-20-2017 End: 11-20-2017 Historical Summary RJ BOGGS REPOSSESSOR-BC Work Phone: [facility] Start: 11-16-2017 End: 11-16-2017 Transition of Care RJ BOGGS REPOSSESSOR-BC Work Phone: [facility] Start: 11-16-2017 End: 11-16-2017 Office outpatient visit 15 minutes RJ BOGGS REPOSSESSOR-BC Work Phone: [facility] Start: 10-20-2017 End: 10-20-2017 Historical Summary RJ BOGGS REPOSSESSOR-BC Work Phone: [facility] Start: 10-20-2017 End: 10-20-2017 Historical Summary RJ BOGGS REPOSSESSOR-BC Work Phone: [facility] Start: 10-19-2017 End: 10-19-2017 Office outpatient visit 15 minutes RJ BOGGS REPOSSESSOR-BC Work Phone: [facility] Start: 08-13-2017 End: 08-13-2017 Historical Summary RJ BOGGS REPOSSESSOR-BC Work Phone: [facility] Start: 08-10-2017 End: 08-10-2017 Office outpatient visit 10 minutes RJ BOGGS REPOSSESSOR-BC Work Phone: [facility] Start: 07-20-2017 End: 07-20-2017 Historical Summary RJ BOGGS REPOSSESSOR-BC Work Phone: [facility] Start: 07-13-2017 End: 07-13-2017 Office outpatient visit 15 minutes RJ BOGGS REPOSSESSOR-BC Work Phone: [facility] Start: 07-06-2017 End: 07-06-2017 Historical Summary RJ BOGGS REPOSSESSOR-BC Work Phone: [facility] [employer] Start: 04-20-2017 End: 04-20-2017 Office outpatient visit 15 minutes RJ BOGGS REPOSSESSOR-BC Work Phone: [employer] [facility] [employer] Start: 08-19-2016 End: 08-19-2016 Office outpatient visit 10 minutes RJ BOGGS REPOSSESSOR-BC Work Phone: [facility] [employer]. Start: 07-14-2016 End: 07-14-2016 Office outpatient visit 10 minutes RJ BOGGS REPOSSESSOR-BC Work Phone: [facility] [employer] Start: 10-26-2015 End: 10-26-2015 Results Review RJ BOGGS REPOSSESSOR-BC Work Phone: [employer] [facility] [employer] Start: 10-22-2015 End: 10-22-2015 Office outpatient visit 10 minutes RJ BOGGS REPOSSESSOR-BC Work Phone: [facility] [employer] Start: 07-10-2015 End: 07-10-2015 Results Review RJ BOGGS REPOSSESSOR-BC Work Phone: [facility] Start: 07-09-2015 End: 07-09-2015 Office outpatient visit 10 minutes RJ BOGGS REPOSSESSOR-BC Work Phone: [employer] [facility] [employer] Start: 08-10-2013 End: 08-10-2013 Injection/immunization only RJ BOGGS REPOSSESSOR-BC Work Phone: [employer] [facility] [employer]. Start: 05-30-2011 End: 05-30-2011 Lab Only RJ BOGGS REPOSSESSOR-BC Work Phone: [employer] Procedures Date Procedure Procedure Detail Performing Clinician Start: 12-26-2024 Measurement of pH in vaginal fluid specimen using nitrazine yellow for detection of rupture of amniotic membrane Dr. Aldo Rodriguez DO Work Phone: Comment on above: Amniotic fluid not p resent indicates No Rupture of FetalMembranes at time of specimen collection. Start: 12-22-2024 Urnls dip stick/tabl et rgnt non-auto w/o micrscp Lisandro Palencia MD Work Phone: Start: 12-22-2024 Us preg uterus after 1st trimest 1/ gestation Ashley Mishra FEDERAL APPELLATE CLERK.CNM Work Phone: Start: 11-23-2024 Us preg uterus after 1st trimest 1/ gestation Maryann Acosta MD Work Phone: Start: 09-28-2024 Us preg uterus after 1st trimest 1/ gestation Julia Hester FEDERAL APPELLATE CLERK.MORTGAGE COUNSELOR Work Phone: Start: 08-09-2024 Us preg uterus after 1st trimest 1/ gestation Julia Mir FEDERAL APPELLATE CLERK.MORTGAGE COUNSELOR Work Phone: Start: 07-19-2024 Antibody screen JULIA ROMANO Comment on above: Order Comment: Speci men Type: BLOOD SPECIMEN Ordering Facility: [facility] Address: [address] [place] [address] Performed By: #### [facility] #### [facility] [place] [id number] [address] [place] [address] [place] Start: 06-27-2024 Us uterus l imited 1/> fetuses Julia [place] FEDERAL APPELLATE CLERK.MORTGAGE COUNSELOR Work Phone: Start: 02-05-2024 Vaccine refused by patient COV ID-19 vaccine series declined Renetta Cabrera FEDERAL APPELLATE CLERK.MORTGAGE COUNSELOR Work Phone: Start: 01-23-2023 End: 01-23-2023 Dischrg meds reconciled w/current med list RJ BOGGS REPOSSESSOR-BC Work Phone: Start: 11-05-2022 CBC + DIFF Alfred puckett FEDERAL APPELLATE CLERK.MORTGAGE COUNSELOR Work Phone: Start: 11-05-2022 Comprehensive metabo lic 2000 panel - Serum or Plasma Alfred Hood FEDERAL APPELLATE CLERK.MORTGAGE COUNSELOR Work Phone: Start: 11-05-2022 LIPID PANEL BASIC Ingli sh Cassidy[place] FEDERAL APPELLATE CLERK.MORTGAGE COUNSELOR Work Phone: Start: 11-05-2022 Ecg routine ecg w/le ast 12 lds trcg only w/o i&r [facility] Provider Start: 11-05-2022 Radiologic exam ches t 2 views Ingaiden Hood FEDERAL APPELLATE CLERK.MORTGAGE COUNSELOR Work Phone: Start: 10-20-2022 Cv strs tst xers&/or rx cont ecg w/si&r Inglish Cassidyut FEDERAL APPELLATE CLERK.MORTGAGE COUNSELOR Work Phone: Start: 11-14-2020 End: 11-14-2020 Dischrg meds reconciled w/current med list Elle CHASE MD Work Phone: Start: 11-14-2020 End: 11-14-2020 Urinary Incontinence RJ BOGGS [facility]- Work Phone: Comment on above: Normal. Start: 04-14-2020 End: 04-14-2020 Vaccination given Dara Boggs Comment on above: Moderna, 2nd dose wa s May 09, 2020 Start: 03-13-2020 End: 03-13-2020 D&C Elle CHASE MD Work Phone: Comment on above: Dr. Newton Start: 03-12-2020 Antibody screen RJ MENDOZA REPOSSESSOR- Work Phone: Start: 11-11-2017 End: 11-11-2017 Sleep Study Diagnostic J REINA BOGGS MD Work Phone: Comment on above: Abnormal. mild NIVIA Start: 06-11-2017 End: 06-11-2017 L fibular fx Elle CHASE MD Work Phone: Comment on above: Surgical repair Dr. Ole Boggs Start: 08-10-2013 End: 08-10-2013 Adacel RJ BOGGS REPOSSESSOR-BC Work Phone: Start: 04-13-2009 End: 04-13-2009 ACL reconstruction Elle CHASE MD Work Phone: Appendectomy Elle CHASE MD Work Phone: Plan of Treatment Date Care Activity Detail Author Start: 08-04-2028 Screening for malignant neoplasm of cervix [facility] Start: 05-01-2026 Screening for malignant neoplasm of cervix Pap Testing [facility] Start: 02-02-2025 End: 02-02-2025 Patient encounter procedure 02/02/2025 1:15 PM EDT Routine Office Visit OB/Gynecology [address] [place] [address] Angelina Meek APRN.CNM [address] [place] [address] OB OB/Gynecology Comment on above: OB Start: 01-27-2025 End: 01-27-2025 Patient encounter procedure 01/27/2025 2:30 PM EDT Routine Office Visit OB/Gynecology [address] [place] [address] Ashley Mishra APRN.CNM [address] [place] [address] OB OB/Gynecology Comment on above: OB Start: 01-19-2025 End: 01-19-2025 Patient encounter procedure [facility] Comment on above: Growth Start: 01-04-2025 End: 01-04-2025 Patient encounter procedure 01/04/2025 4:20 PM EDT Routine Office Visit OB/Gynecology [address] [place] [address] Yasmin Delvalle MD [address] [place] [address] OB OB/Gynecology Comment on above: OB Start: 12-26-2024 Nonstress test [facility] Start: 12-26-2024 Obstetric monitoring [facility] Start: 12-26-2024 Vital signs measurements [facility] Start: 12-26-2024 [facility] Start: 12-26-2024 Patient discharge [facility] Start: 12-22-2024 End: 12-22-2024 Patient encounter procedure [facility] Comment on above: Growth OB Start: 12-18-2024 RSV Vaccine (1 - Risk 1-dose series) RSV Vaccine (1 - Risk 1-dose series) [facility] Start: 12-12-2024 Influenza vaccination [facility] Start: 12-06-2024 End: 12-06-2024 Patient encounter procedure 12/06/2024 2:30 PM EDT Routine Office Visit OB/Gynecology [address] [place] [address] Ashley Mishra APRN.CNM [address] [place] [address] OB OB/Gynecology Comment on above: OB Start: 11-26-2024 End: 02-25-2025 ANEMIA REFLEX PANEL ANEMIA REFLEX PANEL Lab Routine Supervision of high risk , antepartum (HCC) Expected: 11/26/2024, Expires: 02/25/2025 [facility] Comment on above: Expected: 11/26/2024, Expires: 5 Start: 11-26-2024 End: 10-26-2025 SYPHILIS TREPONEMAL W/REFLEX SYPHILIS TREPONEMAL W/REFLEX Lab Routine Supervision of high risk , antepartum (HCC) Expected: 11/26/2024, Expires: 10/26/2025 [facility] Work Phone: Comment on above: Expected: 11/26/2024, Expires: 6 Start: 11-23-2024 End: 11-23-2024 Patient encounter procedure [facility] Comment on above: growth Growth/OB Start: 10-26-2024 End: 10-26-2024 Patient encounter procedure Maternal Fet al Medicine Comment on above: Growth Growth/OB Start: 10-26-2024 End: 01-25-2025 Protein/Creatinine [Mass Ratio] in Urine [facility] Comment on above: Expected: 10/26/2024, Expires: 5 Start: 10-21-2024 [facility] Start: 09-28-2024 End: 09-28-2024 Patient encounter procedure [facility] Comment on above: Anatomy Scan OB Routine Start: 09-06-2024 End: 09-06-2024 Patient encounter procedure 09/06/2024 1:15 PM EDT Routine Office Visit OB/Gynecology [address] [place] [address] Ashley Mishra APRN.CNM [address] [place] [address] OB Routine OB/Gynecology Comment on above: OB Routine Start: 08-24-2024 End: 08-24-2024 Patient encounter procedure 08/24/2024 11:30 AM EDT Office Visit OB/Gynecology [address] [place] [address] Renetta Cabrera APRN.MORTGAGE COUNSELOR [address] [place] [address] wt mgmt f/u OB/Gynecology Comment on above: wt mgmt f/u Start: 08-19-2024 End: 08-19-2024 Patient encounter procedure 08/19/2024 2:20 PM EDT Office Visit OB/Gynecology [address] [place] [address] Yasmin Delvalle MD [address] [place] [address] Annual OB/Gynecology Comment on above: Annual Start: 08-09-2024 End: 08-09-2024 Patient encounter procedure [facility] Comment on above: NUCAL OB Start: 07-14-2024 End: 10-13-2024 Bacteria identified in Urine by Culture BACTERIAL CULTURE, URINE Microbiology Routine Recurrent urinary tract infection affecting in first trimester (HCC) Expected: 07/14/2024, Expires: 10/13/2024 [facility] Comment on above: Expected: 07/14/2024, Expires: Start: 07-14-2024 End: 10-13-2024 Chromosome 21 trisomy [Presence] in Blood or Tissue by Cytogenetics [id number] PLUS Lab Routine Encounter for supervision of normal first in first trimester ([facility]) Expected: 07/14/2024, Expires: 10/13/2024 [facility] Work Phone: Comment on above: Expected: 07/14/2024, Expires: Start: 06-27-2024 End: 09-26-2024 ANEMIA REFLEX PANEL ANEMIA REFLEX PANEL Lab Routine Encounter for care in first trimester of first 7 weeks gestation of Expected: 06/27/2024, Expires: 09/26/2024 [facility] Work Phone: Comment on above: Expected: 06/27/2024, Expires: Start: 06-27-2024 End: 09-26-2024 Hemoglobin A1c in Blood HEMOGLOBIN A1C Lab Routine Encounter for care in first trimester of first 7 weeks gestation of Expected: 06/27/2024, Expires: 09/26/2024 [facility] Comment on above: Expected: 06/27/2024, Expires: Start: 06-27-2024 End: 09-26-2024 Hepatitis B virus surface Ag [Presence] in Serum HEPATITIS B SURFACE ANTIGEN Lab Routine Encounter for care in first trimester of first 7 weeks gestation of Expected: 06/27/2024, Expires: 09/26/2024 [facility] Comment on above: Expected: 06/27/2024, Expires: Start: 06-27-2024 End: 09-26-2024 Hepatitis C virus Ab [Presence] in Serum HEPATITIS C ANTIBODY IA WITH CONFIRMATION Lab Routine Encounter for care in first trimester of first 7 weeks gestation of Expected: 06/27/2024, Expires: 09/26/2024 [facility] Comment on above: Expected: 06/27/2024, Expires: Start: 06-27-2024 End: 09-26-2024 HIV 1+2 Ab [Presence] in Serum or Plasma by Immunoassay HIV 1/2 COMBO WITH REFLEX TO DIFFERENTIATION Lab Routine Encounter for care in first trimester of first 7 weeks gestation of Expected: 06/27/2024, Expires: 09/26/2024 [facility] Comment on above: Expected: 06/27/2024, Expires: Start: 06-27-2024 End: 06-27-2025 OBSTETRIC ULTRASOUND WHI OBSTETRIC ULTRASOUND WHI Anc Imaging Routine Encounter for care in first trimester of first 7 weeks gestation of Expected: 06/27/2024, Expires: 06/27/2025 [facility] Comment on above: Expected: 06/27/2024, Expires: Start: 06-27-2024 End: 09-26-2024 RUBELLA IGG ANTIBODY RUBELLA IGG ANTIBODY Lab Routine Encounter for care in first trimester of first 7 weeks gestation of Expected: 06/27/2024, Expires: 09/26/2024 [facility] Comment on above: Expected: 06/27/2024, Expires: Start: 06-27-2024 End: 09-26-2024 SYPHILIS TREPONEMAL W/REFLEX SYPHILIS TREPONEMAL W/REFLEX Lab Routine Encounter for care in first trimester of first 7 weeks gestation of Expected: 06/27/2024, Expires: 09/26/2024 [facility] Comment on above: Expected: 06/27/2024, Expires: Start: 06-27-2024 End: 09-26-2024 TYPE + SCREEN TYPE + SCREEN Blood Bank Routine Encounter for care in first trimester of first 7 weeks gestation of Expected: 06/27/2024, Expires: 09/26/2024 [facility] Comment on above: Expected: 06/27/2024, Expires: Start: 01-27-2024 End: 01-27-2024 ambulatory 01/27/2024 4:00 PM EDT [facility] OB/Gynecology [address] [place] [address] Renetta Cabrera APRN.MORTGAGE COUNSELOR [address] [place] [address] [facility] OB/Gynecology Comment on above: Wgt Mgmt Start: 12-13-2023 Covid-19 Vaccine ( season) Covid-19 Vaccine () [facility] Start: 12-13-2023 Influenza vaccination Influ[facility] (#1) [facility] Start: 11-04-2023 End: 11-04-2023 ambulatory 11/04/2023 10:00 AM EDT [facility] OB/Gynecology [address] [place] [address] Renetta Cabrera, FEDERAL APPELLATE CLERK.MORTGAGE COUNSELOR [address] [place] [address] wt mgmt f/u OB/Gynecology Comment on above: wt mgmt f/u Start: 09-17-2023 End: 12-17-2023 Bacteria identified in Urine by Culture [facility] Work Phone: Comment on above: Expected: 09/17/2023, Expires: Start: 09-17-2023 End: 09-17-2023 Patient encounter procedure 09/17/2023 2:00 PM EDT Office Visit OB/Gynecology [address] [place] [address] Renetta Cabrera, FEDERAL APPELLATE CLERK.MORTGAGE COUNSELOR [address] [place] [address] WT MGMT F/U OB/Gynecology Comment on above: WT MGMT F/U Start: 09-14-2023 End: 09-14-2023 Patient encounter procedure 09/14/2023 9:00 AM EDT Office Visit Neurology [address] [place] [address] Yasmin Pham, FEDERAL APPELLATE CLERK.MORTGAGE COUNSELOR [address] [address] NIVIA (obstructive sleep apnea) [G47.33]; Class 3 severe obesity with serious comorbidity and body mass index (BMI) of 40.0 to 44.9 in adult, unspecified obesity type (HCC) [E66.01, Z68.41] Neurology Comment on above: NIVIA (obstructive sleep apnea) [G47.33]; Class 3 severe obesity with serious comorbidity and body mass index (BMI) of 40.0 to 44.9 in adult, unspecified obesity type (HCC) [E66.01, Z68.41] Start: 08-11-2023 Urine microalbumin profile DTaP,Tdap,Td Vaccine (7 - Td or Tdap) [facility] Start: 08-06-2023 End: 08-06-2023 Patient encounter procedure 08/06/2023 2:00 PM EDT Office Visit OB/Gynecology [address] [place] [address] Renetta Cabrera APRN.MORTGAGE COUNSELOR [address] [place] [address] 3 wk mgmt follow up appt OB/Gynecology Comment on above: 3 wk mgmt follow up appt Start: 06-04-2023 End: 09-03-2023 Choriogonadotropin.beta subunit [Units/volume] in Serum or Plasma [facility] Work Phone: Comment on above: Expected: 06/04/2023, Expires: Start: 04-13-2023 Behavioral Health Screening Behavioral Health Screening [facility] Start: 04-13-2023 Depression Assessment Depression Assessment [facility] Start: 2023 Screening for malignant neoplasm of cervix HPV Testing [facility] Start: 12-12-2022 Covid-19 Vaccine ( season) Covid-19 Vaccine ( season) [facility] Start: 12-12-2022 Influenza vaccination Influenza Vaccine (#1) [facility] Start: 04-13-2022 DEPRESSION ASSESSMENT DEPRESSION ASSESSMENT [facility] Start: 12-12-2021 Influenza vaccination INFLUENZA (#1) [facility] Start: 11-14-2020 Patient Education [facility], [facility]. Start: 10-07-2020 COVID-19 VACCINE (3 - Booster for Moderna series) COVID-19 VACCINE (3 - Booster for Moderna series) [facility] Start: 07-04-2020 COVID-19 VACCINE (3 - Booster for Moderna series) COVID-19 VACCINE (3 - Booster for Moderna series) [facility] Start: 07-04-2020 Covid-19 Vaccine (3 - Moderna series) Covid-19 Vaccine (3 - Moderna series) [facility] Start: 02-09-2020 HPV Vaccine (1 - 3-dose SCDM series) HPV Vaccine (1 - 3-dose SCDM series) [facility] Start: 11-16-2017 Mri any jt lower extrem w/o contrast matrl MRI KNEE W/O CONTRAST ([id number]) Start: 16-Nov-2017 Intent Comments: left [facility]; [employer] Comment on above: left Start: 10-20-2017 Polysom any age sleep stage 1-3 addl lianne attnd POLYSOMNOGRAPHY, 1-3 (69390) Start: 20-Oct-2017 Intent [facility]; [facility]. Start: 07-14-2016 Patient Education ANKLE SPRAIN Indication: Sprain of left ankle, unspecified ligament, initial encounter Start: 14-Jul-2016 Instruction Type: Patient Education [facility]. Start: 10-22-2015 Us pelvic nonobstetric real-time image complete US PELVIS, COMPLETE ([id number]) Start: 22-Oct-2015 Intent [facility]. Start: 2014 PAP TESTING PAP TESTING [facility] Start: 02-09-2012 Urine microalbumin profile [facility] Start: 05-30-2011 Blood count hemoglobin HGB (HEMOGLOBIN) (20483) Start: 30-May-2011 09:22-05:00 Request [facility] [employer] Start: 05-30-2011 Blood count hematocrit HCT (HEMATOCRIT) ([id number]) Start: 30-May-2011 09:22-05:00 Request [facility] [employer]. Start: 2011 Anxiety Screening Anxiety Screening [facility] Start: 2011 Depression Screening Depression Screening [facility] Start: 2011 HEPATITIS C SCREENING HEPATITIS C SCREENING [facility] Start: 2011 Hepatitis C screening Hepatitis C Screening [facility] Start: 2011 HIV SCREENING HIV SCREENING [facility] Start: 2011 HIV screening HIV Screening [facility] Start: 2005 Adult depression screening assessment DEPRESSION SCREENING [facility] Start: 02-09-2004 Urine microalbumin profile DTaP,Tdap,Td Vaccine (6 - Tdap) [facility] Start: 1993 HEPATITIS B (1 of 3 - 3-dose series) HEPATITIS B (1 of 3 - 3-dose series) [facility] Start: 1993 Hepatitis B Vaccine (1 of 3 - 3-dose series) Hepatitis B Vaccine (1 of 3 - 3-dose series) [facility] Bacteria identified in Urine by Culture BACTERIAL CULTURE, URINE Microbiology Routine Encounter for care in first trimester of first 7 weeks gestation of 06/27/2024 3:26 PM EDT [facility] Chlamydia trachomatis+Neisseria gonorrhoeae DNA [Presence] in Unspecified specimen by ANGELIA with probe detection GONORRHEA/CHLAMYDIA NAAT Lab Routine Encounter for care in first trimester of first 7 weeks gestation of 06/27/2024 3:26 PM EDT [facility] Dehydroepiandrostero ne sulfate (DHEA-S) [Mass/volume] in Serum or Plasma [facility] End: 02-12-2025 nonstress test NON-STRESS TEST Procedures Routine Supervision of high risk , antepartum (HCC) Obesity in (HCC) Diet controlled gestational diabetes mellitus (GDM) in third trimester (HCC) 32 weeks gestation of (HCC) Once per week for 5 Occurrences starting 12/22/2024 until 02/12/2025 [facility] Work Phone: Comment on above: Once per week for 5 Occurrences starting 12/22/2024 until 02/12/2025 End: 03-27-2025 OBSTETRIC ULTRASOUND WHI OBSTETRIC ULTRASOUND WHI Anc Imaging Routine Obesity in (HCC) Once per month for 5 Occurrences starting 09/28/2024 until 03/27/2025 [facility] Work Phone: Comment on above: Once per month for 5 Occurrences startin g 09/28/2024 until 03/27/2025 End: 02-21-2025 OBSTETRIC ULTRASOUND WHI OBSTETRIC ULTRASOUND WHI Anc Imaging Routine 20 weeks gestation of (HCC) Supervision of high risk , antepartum (HCC) Obesity in (HCC) Diet controlled gestational diabetes mellitus (GDM) in second trimester (HCC) Once per month for 5 Occurrences starting 09/28/2024 until 02/21/2025 [facility] Work Phone: Comment on above: Once per month for 5 Occurrences startin g 09/28/2024 until 02/21/2025 PAP TEST PAP TEST Lab [facility] allen Encounter for gynecological examination (general) (routine) without abnormal findings Screening for cervical cancer Encounter for screening for human papillomavirus (HPV) 08/05/2023 2:45 PM EDT [facility] Work Phone: Patient Education [facility] Work Phone: Testosterone Free [Mass/volume] in Serum or Plasma [facility] Testosterone measurement [facility] TRICHOMONAS VAGINALIS NAAT TRICH OMONAS VAGINALIS NAAT Lab Routine 7 weeks gestation of 06/27/2024 3:26 PM EDT [facility] URINE OB DIP B/O URINE OB DIP B/ O Lab Routine Supervision of high risk , antepartum (HCC) Obesity in (HCC) Diet controlled gestational diabetes mellitus (GDM) in second trimester (HCC) Ordered: 11/23/2024 [facility] Work Phone: Comment on above: Ordered: 11/23/2024 URINE OB DIP B/O URINE OB DIP B/ O Lab Routine Supervision of high risk , antepartum (HCC) 30 weeks gestation of (HCC) Obesity in (HCC) Diet controlled gestational diabetes mellitus (GDM) in second trimester (HCC) Antepartum anemia complicating in third trimester (HCC) Elevated hemoglobin A1c History of pulmonary embolism NIVIA on CPAP Ordered: 12/06/2024 [facility] Work Phone: Comment on above: Ordered: 12/06/2024 [facility] Immunizations Immunization Date Immunization Notes Care Provider Claudio renandez 02-18-2023 influenza, injectabl e, quadrivalent, preservative free Yasmin Delvalle MD Work Phone: [facility] 02-18-2023 influenza virus vaccine, unspecified formulation Renetta Cabrera APRN.MORTGAGE COUNSELOR Work Phone: [facility] 02-21-2022 influenza, injectabl e, quadrivalent, preservative free Yasmin Delvalle MD Work Phone: [facility] 11-26-2020 tuberculin skin test ; purified protein derivative solution, intradermal Renetta Cabrera APRN.MORTGAGE COUNSELOR Work Phone: [facility] 05-09-2020 COVID-Moderna (100 MCG/0.5 ML) [facility] Work Phone: [facility] [employer] 04-14-2020 COVID-Moderna (100 MCG/0.5 ML) [facility] Work Phone: [facility] [employer]. 02-03-2018 influenza virus vaccine, unspecified formulation [facility] Work Phone: [facility] [employer]. Comment on above: Had immunization. 02-03-2018 unknown vaccine or immune globulin [facility]- Work Phone: [facility]; [facility]. 02-03-2018 influenza, injectabl e, quadrivalent, contains preservative [facility]- Work Phone: [facility] [employer] Comment on above: Site: Left DeltoidVI S Given: * Influenza - Inactivated (11/17/14) 08-10-2013 *IMMUNIZATION ADMIN ([id number]) [facility]- Work Phone: [facility] 08-10-2013 tetanus toxoid, redu divya diphtheria toxoid, and acellular pertussis vaccine, adsorbed [facility]- Work Phone: [facility].; [facility]. Comment on above: Site: Deltoid (Left) 09-03-1999 hepatitis B vaccine, pediatric or pediatric/adolescent dosage Yasmin Delvalle MD Work Phone: [facility] 02-13-1999 diphtheria, tetanus toxoids and acellular pertussis vaccine, unspecified formulation Yasmin Delvalle MD Work Phone: [facility] 02-13-1999 hepatitis B vaccine, pediatric or pediatric/adolescent dosage Yasmin Delvalle MD Work Phone: [facility] 02-13-1999 measles, mumps and rubella virus vaccine Yasmin Delvalle MD Work Phone: [facility] 02-13-1999 trivalent poliovirus vaccine, live, oral Yasmin Delvalle MD Work Phone: [facility] 07-20-1998 hepatitis B vaccine, pediatric or pediatric/adolescent dosage Yasmin Delvalle MD Work Phone: [facility] 07-20-1998 varicella virus vaccine Hilary Delvalle MD Work Phone: [facility] 09-30-1994 DTP-Haemophilus influenzae type b conjugate vaccine Yasmin Delvalle MD Work Phone: [facility] 09-30-1994 measles, mumps and rubella virus vaccine Yasmin Delvalle MD Work Phone: [facility] 02-18-1994 diphtheria, tetanus toxoids and pertussis vaccine Yasmin Delvalle MD Work Phone: [facility] 02-18-1994 haemophilus influenz ae type b vaccine, conjugate unspecified formulation Yasmin Delvalle MD Work Phone: [facility] 02-18-1994 trivalent poliovirus vaccine, live, oral Yasmin Delvalle MD Work Phone: [facility] 1993 diphtheria, tetanus toxoids and pertussis vaccine Yasmin Delvalle MD Work Phone: [facility] 1993 trivalent poliovirus vaccine, live, oral Yasmin Delvalle MD Work Phone: [facility] 1993 diphtheria, tetanus toxoids and pertussis vaccine Yasmin Delvalle MD Work Phone: [facility] 1993 haemophilus influenz ae type b vaccine, conjugate unspecified formulation Yasmin Delvalle MD Work Phone: [facility] 1993 trivalent poliovirus vaccine, live, oral Yasmin Delvalle MD Work Phone: [facility] Payers Date Payer Category Payer Self-pay [id number] 2024 Private Health Insurance [employer] [id number] 2022 Unknown [id number] 2022 Unknown [id number] 2020 Unknown [id number] Self-pay [id number] Unknown [id number] Unknown [id number] Unknown [facility] [id number] Unknown [id number] Unknown [id number] Unknown [id number] Unknown [id number] Social History Date Type Detail Facility Tobacco smoking stat [facility] Unknown if ever smoked [facility] Start: 1995 Sex Assigned At Not on file [facility] Start: 03-06-2020 Tobacco smoking stat [facility] Tobacco smoking consumption unknown [facility] Start: 06-18-2022 End: 10-21-2024 Tobacco smoking status PRIS Never smoked tobacco [facility] Start: 06-18-2022 Tobacco use and exposure Smokeless tobacco non-user [facility] Start: 03-06-2020 Non-smoker [facility] Start: 1995 Sex Assigned At Female [facility] Start: 06-18-2022 End: 09-14-2023 History of Social function [facility] Start: 06-18-2022 End: 09-14-2023 Tobacco use panel [facility] Start: 11-26-2017 National Score (1-100), lower number is lower risk Not on file [facility] Start: 04-17-2023 End: 05-26-2024 Alcohol intake Current drinker of alcohol (finding) [facility] Start: 04-13-2023 Gender identity Identifies as female gender (finding) [facility] Start: 05-24-2023 Alcohol Comment rarely [facility] Start: 06-27-2024 End: 10-21-2024 Alcoholic beverage intake Ex-drinker (finding) [facility] Start: 06-22-2024 Education 15 [facility] Start: 05-22-2024 [facility] Alcohol Use: Alcohol Use: ; Occasional [facility] use. [facility] Tobacco use: Tobacco use: ; N ever smoker. [facility] Medical Equipment Procedure Code Equipment Code Equipment Origin al Text Equipment Identifier Dates Use as directed to check glucose levels up to seven times daily. [id number] Start: 09-28-2024 Use as directed to check glucose levels up to seven times daily. [id number] Start: 09-28-2024 Goals Date Patient Goal Desired Activity /State Personal health goal Personal health goal Mental Status Date Assessment Result Facility 10-21-2024 Cognitive function Level Of Cons ciousness Awake;Alert;Appropriate;Follow s Commands [facility] Work Phone: Clinical Notes 06-18-2022 to 01-30-2025 Telephone Encounter - Cat Villanueva RN - 12/26/2024 12:28 PM EDTTelephone Encounter - Cat Villanueva RN - 12/26/2024 12:28 PM EDTTelephone Encounter - Lisandro Palencia MD - 12/26/2024 12:14 PM EDT Note Date & Type Note Facility 01-30-2025 Note HNO ID: [id number] Author: MARTINA VASQUEZ, ? Service: ? 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 No direct outreach was made. Reason for Outreach Medicaid OB/Peds Care Gaps due: N/A Patient Contacted: Unable or unnecessary to reach patient: line patroller added Navigation Signature: Martina Vasquez Population Health Navigator January 30, 2025 7:35 AM [facility] 01-30-2025 Note Patient Outreach (JOSSY GENAO) LAURA CASTELLANOS ([id number]) 1995 F [facility] [place] Date Time Provider Department 01/30/25 CECILIATiaMARTINA CARLA During your visit today, we recorded the following information about you: Martina Vasquez 01/30/2025 7:35 AM Signed POPULATION HEALTH NAVIGATION OUTREACH Action/FYI Added line patroller to the chart through a note. No direct outreach was made. Reason for Outreach Medicaid OB/Peds Care Gaps due: N/A Patient Contacted: Unable or unnecessary to reach patient: [place] line patroller added Navigation Signature: Martina Vasquez Population Health Navigator January 30, 2025 7:35 AM Allergies As of Date: 01/30/2025 Noted Allergy Reaction CHLORHEXIDINE 05/24/2023 9 - Itching LATEX 06/22/2024 2 - Rash Date Reviewed: 01/27/2025 Reviewed by: Alison Heard MA - Fully Assessed Reason for Visit: Population Health Navigation Outreach [3910] Cmt: to PCP/OB Prescriptions as of 01/30/2025 - FERROUS SULFATE DRIED ORAL Take by mouth once daily. - Breast Pump Use as directed - metoclopramide HCl (REGLAN) 10 mg tablet Take 1 tablet by mouth three times a day as needed (headache or nausea). - blood sugar diagnostic test strip Use as directed to check glucose levels up to seven times daily. - Lancets Use as directed to check glucose levels up to seven times daily. - alcohol swabs (ALCOHOL PREP PADS) Use as directed to check glucose levels up to seven times daily. - aspirin, enteric coated (ECOTRIN LOW STRENGTH) 81 mg EC tablet Take 1 tablet by mouth once daily. - vit37/iron/folic acid (PRENATA ORAL) Take 2 capsules by mouth once daily. - coenzyme Q10 (CO Q-10) 100 mg cap capsule Take 200 mg by mouth once daily. - cholecalciferol, vitamin D3, (VITAMIN D3 ORAL) Take 2,000 Units by mouth once daily. - calcium carbonate/vitamin D3 (CALCIUM 600 + D ORAL) Take 1 capsule by mouth once daily. 200 international unit(s) of Vitamin D - Cyanocobalamin (VITAMIN B-12) 1,000 mcg TbER Take 1 tablet by mouth once daily. - metFORMIN ER (GLUCOPHAGE XR) 500 mg 24 hr tablet Take 2 tablets by mouth two times a day with meals. 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 Author Type: Physician Type: Progress Notes Filed: 01/24/2025 16:01 Note Text: NST SUMMARY PROVIDER ASSESSMENT AND INTERPRETATION Laura Castellanos is a 29 year old female, , who is at 37w2d with an PHYLLIS of 02/12/2025, by Last Menstrual Period dating method. Indications for NST: Decreased Movement Baseline: 150 Variability: Moderate Accelerations: Present 15 X 15 Decelerations: Variable Contractions: TOCO: None Interpretation: Reactive SIGNATURE: Devang Deluna MD [facility] 12-26-2024 Telephone encount er Note Patient notified and L&D notified patient coming in. Cat Villanueva RN [facility] 12-26-2024 Miscellaneous Notes Formattin g of this note might be different from the original. Patient notified and L&D notified patient coming in. Cat Villanueva RN Recommend L&D for eval 33w1d Patient states that while walking up the stairs she felt a gush of fluid. Happened 20 min before she called. Changed clothes, not wearing a pad/liner, and hasn't experienced any more since. Denies cramping, contractions, or VB. Having good FM. Advised to continue to monitor until she hears back from the office. Would you like her seen here, L&D, or [facility] to rule out SROM? Regina Benitez RN documented in this encounter [facility] 12-26-2024 Telephone encount er Note Recommend L&D for eval [facility] Work Phone: 12-26-2024 Telephone encount er Note 33w1d Patient states that while walking up the stairs she felt a gush of fluid. Happened 20 min before she called. Changed clothes, not wearing a pad/liner, and hasn't experienced any more since. Denies cramping, contractions, or VB. Having good FM. Advised to continue to monitor until she hears back from the office. Would you like her seen here, L&D, or [facility] to rule out SROM? Regina Benitez, RN [facility] 12-23-2024 Note Indication Evaluation of growth Gestational diabetes mellitus before 24 weeks, Maternal obesity, BMI >35 Impression REMOTE READ - Single, live, intrauterine . - presentation is cephalic. - The biometry is consistent with the assigned gestational dating. - The EFW is 2134 g, at the 59%. AC is at the 79%. - Amniotic fluid volume is normal amount with an MVP of 6.7 cm and SAÚL of 23.3 cm. - The placenta is posterior, fundal. - No malformations visualized on a limited survey as detailed below. Recommendations - growth scan every 4 weeks - Additional follow up as clinically indicated. Maternal Assessment Height 168 cm Height (ft) 5 ft Height (in) 6 in Physical Exam Initial weight (lb) 227 lb Initial BMI 36.64 kg/m Maternal assessment other: 1 Para 0 Method Transabdominal ultrasound examination Taylor . Number of fetuses: 1 Dating LMP on: 05/08/2024 GA by LMP 32 w + 4 d PHYLLIS by LMP: 02/12/2025 GA by prior assessment 32 w + 4 d PHYLLIS by prior assessment: 02/12/2025 Ultrasound examination on: 12/22/2024 GA by U/S based upon: AC, BPD, Femur, HC GA by U/S 33 w + 1 d PHYLLIS by U/S: 2025 Assigned: based on stated PHYLLIS, selected on 12/22/2024 Assigned GA 32 w + 4 d Assigned PHYLLIS: 02/12/2025 General Evaluation Cardiac activity present. FHR 137 bpm. movements: present. Presentation: cephalic Placenta: Placental site: posterior, fundal Umbilical cord: Cord vessels: 3 vessel cord Amniotic fluid: Amount of AF: normal amount. MVP 6.7 cm. SAÚL 23.3 cm. Q1 5.3 cm, Q2 6.1 cm, Q3 5.2 cm, Q4 6.7 cm Growth Overview Exam date GA BPD (mm) HC (mm) AC (mm) FL (mm) HL (mm) EFW (g) 09/28/2024 20w 3d 46.8 37% 171.5 28% 165.4 80% 32.2 49% 29.6 24% 371 59% 11/23/2024 28w 3d 70.9 39% 269.8 60% 236.9 30% 51.2 28% 1164 24% 12/22/2024 32w 4d 83.4 72% 314.2 80% 296.1 79% 60.2 26% 2134 59% Biometry Standard BPD 83.4 mm 33w 4d 72% Hadlock OFD 112.4 mm 34w 3d 82% Nicolaides HC 314.2 mm 34w 2d 80% Trent AC 296.1 mm 33w 4d 79% Hadlock Femur 60.2 mm 31w 2d 26% Trent EFW 2,134 g 32w 6d 59% Hadlock EFW (lb) 4 lb EFW (oz) 11 oz EFW by: Hadlock (HC-AC-FL) Extended Carpet Sewer 7.2 mm Extremities / Bony Struc FL / HC 0.19 Other Structures FHR 137 bpm Anatomy Lateral ventricles: normal Cavum septi pellucidi: normal Cerebellum: normal Cisterna magna: normal 4-chamber view: normal RVOT view: normal LVOT view: normal 3-vessel view: normal Heart / Thorax Situs: situs solitus (normal) Diaphragm: normal Stomach: normal Kidneys: normal Bladder: normal sex: female Wants to know sex: yes Performed By: Bozena Roach RDMS, RVT Read By: Maryann Acosta M.D. [facility] 12-22-2024 Progress note Formatting of t his note might be different from the original. SW- Was having cramping last night. She has not noticed cramping today. No contractions, vb, lof. No urinary symptoms of changes in BM's. Good FM. PE: Gen- NAD, well appearing See flowsheet A/p 32 wk gestation - A1GDM: BG log reviewed. Growth US today and final report pending. Repeat growth US 4 weeks - Obesity: Weekly NST's ordered - Cont LDA - H/o PE: Lovenox for 6 weeks - RTO 2 wks Lisandro Palencia DO [facility] 12-22-2024 Miscellaneous Notes Formattin g of this note might be different from the original. SW- Was having cramping last night. She has not noticed cramping today. No contractions, vb, lof. No urinary symptoms of changes in BM's. Good FM. PE: Gen- NAD, well appearing See flowsheet A/p 32 wk gestation - A1GDM: BG log reviewed. Growth US today and final report pending. Repeat growth US 4 weeks - Obesity: Weekly NST's ordered - Cont LDA - H/o PE: Lovenox for 6 weeks - RTO 2 wks Lisandro Palencia DO documented in this encounter [facility] 12-22-2024 Instructions Chelsy Walter MA - 12/22/2024 3:03 PM EDT SEQUENTIAL SCREENINGS The [facility] offers sequential screenings for women who are interested in screenings for chromosomal abnormalities and certain defects during a . The sequential screen combines ultrasound and blood tests to determine the risk of chromosomal abnormalities, including Down's Syndrome (Trisomy 21) and Trisomy 18, as well as open neural tube defects including spina bifida. Ultrasound examination is performed between 11 weeks and 13 weeks gestational age. Blood tests are drawn after the ultrasound and again later in the between 15 and 21 weeks gestational age. Please let your physician know if you are interested in this testing. It will require an appointment with our interactive video technician. This is not an ultrasound performed by a physician in our office during a routine visit. SIGNS AND SYMPTOMS OF LABOR 1. Contractions every 10 minutes or more often 2. Clear, pink, or brownish fluid (water) leaking from vagina 3. Feeling that baby is pushing down, pressure 4. Low, dull backache 5. Cramps that feel like a period 6. Cramps with or without diarrhea If you notice any of the above symptoms, contact our office at [phone] and ask to speak with a nurse. After hours, you can call doctors registry at [phone] OR call [facility] at [phone] and ask to have the doctor transition lead paged. If you consider this an emergency, dial 9-1-1 or go to your nearest emergency department. NEED HELP? Are you dealing with a violent or abusive relationship? Are you a victim of rape or sexual assult? Call [facility] ([place]) 24 hour Crisis Hotline: 455.604.3066 or 721-615-4766. MANUAL Your Guide to a Healthy manual is now on-line. Visit [email or web address] to download your free copy documented in this encounter [facility] 12-07-2024 Telephone encount er Note I can't treat based on those numbers. Needs to be more consistent. Fastings look good. [facility] 12-07-2024 Miscellaneous Notes Formattin g of this note might be different from the original. I can't treat based on those numbers. Needs to be more consistent. Fastings look good. 30w2d Saw JAX today. Cat Villanueva RN documented in this encounter [facility] 12-06-2024 Telephone encount er Note 30w2d Saw JAX today. Cat Villanueva RN [facility] 12-06-2024 Progress note Formatting of t his note might be different from the original. JAX-S: Laura Castellanos is a 29 year old female who presents at 30w2d with PHYLLIS:02/12/2025, by Last Menstrual Period for a routine visit. Denies headache, visual changes, chest pain, shortness of breath, vaginal bleeding, leakage of fluid, or dysuria. Feeling well, no complaints. O: See flow sheet Gen: No apparent distress Abd: Gravid, nontender BG per patient recall, fasting all normal. 3 elevated 2hr levels in last week, 199, 184, 160, all after carbohydrates/maple syrup ASSESSMENT/PLAN: 1. Supervision of high risk , antepartum -Continue PNV -Continue ASA - plan reviewed, desires unmedicated 2. 30 weeks gestation of 3. Obesity in -Pregravid BMI 35 4. Diet controlled gestational diabetes mellitus -Good glycemic control -Reviewed ways to improve PP numbers -Send BG log weekly -Growth US every 4 weeks 5. Antepartum anemia complicating in third trimester -Continue Iron supplement, repeat CBC at 32 weeks 6. Elevated hemoglobin A1c 7. History of pulmonary embolism -Postsurgical PE -Anticoagulation therapy PP 8. NIVIA on CPAP -Recommend follow up with sleep medicine PTL precautions reviewed and when to call RTO in 2 weeks Ashley Mishra APRN.CNM [facility] 12-06-2024 Miscellaneous Notes Formattin g of this note might be different from the original. JAX-S: Laura Castellanos is a 29 year old female who presents at 30w2d with PHYLLIS:02/12/2025, by Last Menstrual Period for a routine visit. Denies headache, visual changes, chest pain, shortness of breath, vaginal bleeding, leakage of fluid, or dysuria. Feeling well, no complaints. O: See flow sheet Gen: No apparent distress Abd: Gravid, nontender BG per patient recall, fasting all normal. 3 elevated 2hr levels in last week, 199, 184, 160, all after carbohydrates/maple syrup ASSESSMENT/PLAN: 1. Supervision of high risk , antepartum -Continue PNV -Continue ASA - plan reviewed, desires unmedicated 2. 30 weeks gestation of 3. Obesity in -Pregravid BMI 35 4. Diet controlled gestational diabetes mellitus -Good glycemic control -Reviewed ways to improve PP numbers -Send BG log weekly -Growth US every 4 weeks 5. Antepartum anemia complicating in third trimester -Continue Iron supplement, repeat CBC at 32 weeks 6. Elevated hemoglobin A1c 7. History of pulmonary embolism -Postsurgical PE -Anticoagulation therapy PP 8. NIVIA on CPAP -Recommend follow up with sleep medicine PTL precautions reviewed and when to call RTO in 2 weeks Ashley Mishra APRN.CNM documented in this encounter [facility] 12-06-2024 Instructions Ewa Salinas MA - 12/06/2024 2:24 PM EDT SEQUENTIAL SCREENINGS The [facility] offers sequential screenings for women who are interested in screenings for chromosomal abnormalities and certain defects during a . The sequential screen combines ultrasound and blood tests to determine the risk of chromosomal abnormalities, including Down's Syndrome (Trisomy 21) and Trisomy 18, as well as open neural tube defects including spina bifida. Ultrasound examination is performed between 11 weeks and 13 weeks gestational age. Blood tests are drawn after the ultrasound and again later in the between 15 and 21 weeks gestational age. Please let your physician know if you are interested in this testing. It will require an appointment with our interactive video technician. This is not an ultrasound performed by a physician in our office during a routine visit. SIGNS AND SYMPTOMS OF LABOR 1. Contractions every 10 minutes or more often 2. Clear, pink, or brownish fluid (water) leaking from vagina 3. Feeling that baby is pushing down, pressure 4. Low, dull backache 5. Cramps that feel like a period 6. Cramps with or without diarrhea If you notice any of the above symptoms, contact our office at [phone] and ask to speak with a nurse. After hours, you can call doctors registry at [phone] OR call [facility] at [phone] and ask to have the doctor transition lead paged. If you consider this an emergency, dial 9-1 or go to your nearest emergency department. NEED HELP? Are you dealing with a violent or abusive relationship? Are you a victim of rape or sexual assult? Call [facility] ([place]) 24 hour Crisis Hotline: 710.911.6550 or 888-807-4349. MANUAL Your Guide to a Healthy manual is now on-line. Visit [email or web address] to download your free copy documented in this encounter [facility] 11-25-2024 Note Indication Evaluation of growth Gestational diabetes mellitus before 24 weeks, Maternal obesity, BMI >35 Impression - Single, live, intrauterine . - presentation is cephalic. - The biometry is consistent with the assigned gestational dating. - The EFW is 1164 g, at the 24%. AC is at the 30%. - Amniotic fluid volume is normal amount with an MVP of 6.7 cm and SAÚL of 22.5 cm. - The placenta is anterior, fundal. - No malformations visualized on a limited survey as detailed below. Recommendations Serial growth ultrasounds every 4 weeks. Weekly testing starting at 36 weeks. Additional follow-up as clinically indicated. Maternal Assessment Height 168 cm Height (ft) 5 ft Height (in) 6 in Physical Exam Initial weight (lb) 227 lb Initial BMI 36.64 kg/m Maternal assessment other: 1 Para 0 REMOTE READ Method Transabdominal ultrasound examination Taylor . Number of fetuses: 1 Dating LMP on: 05/08/2024 GA by LMP 28 w + 3 d PHYLLIS by LMP: 02/12/2025 GA by prior assessment 28 w + 3 d PHYLLIS by prior assessment: 02/12/2025 Ultrasound examination on: 11/23/2024 GA by U/S based upon: AC, BPD, Femur, HC GA by U/S 28 w + 2 d PHYLLIS by U/S: 02/13/2025 Assigned: based on the LMP, selected on 06/27/2024 Assigned GA 28 w + 3 d Assigned PHYLLIS: 02/12/2025 General Evaluation Cardiac activity present. FHR 135 bpm. movements: present. Presentation: cephalic Placenta: Placental site: anterior, fundal Umbilical cord: Cord vessels: 3 vessel cord Amniotic fluid: Amount of AF: normal amount. MVP 6.7 cm. SAÚL 22.5 cm. Q1 6.1 cm, Q2 6.7 cm, Q3 5.6 cm, Q4 4.2 cm Growth Overview Exam date GA BPD (mm) HC (mm) AC (mm) FL (mm) HL (mm) EFW (g) 09/28/2024 20w 3d 46.8 37% 171.5 28% 165.4 80% 32.2 49% 29.6 24% 371 59% 11/23/2024 28w 3d 70.9 39% 269.8 60% 236.9 30% 51.2 28% 1164 24% Biometry Standard BPD 70.9 mm 28w 3d 39% Hadlock OFD 96.8 mm 28w 4d 67% Nicolaides HC 269.8 mm 28w 6d 60% Trent AC 236.9 mm 28w 0d 30% Hadlock Femur 51.2 mm 27w 4d 28% Trent EFW 1,164 g 27w 5d 24% Hadlock EFW (lb) 2 lb EFW (oz) 9 oz EFW by: Hadlock (HC-AC-FL) Extended Carpet Sewer 6.7 mm Extremities / Bony Struc FL / HC 0.19 Other Structures FHR 135 bpm Anatomy Lateral ventricles: normal Cavum septi pellucidi: normal Cerebellum: normal Cisterna magna: normal 4-chamber view: normal RVOT view: normal LVOT view: normal 3-vessel view: normal Heart / Thorax Situs: situs solitus (normal) Diaphragm: normal Stomach: normal Kidneys: normal Bladder: normal sex: female Wants to know sex: yes Performed By: Bozena Roach RDMS, RVT Read By: Katherine Regalado M.D. [facility] 11-23-2024 Progress note Formatting of t his note might be different from the original. RR- VB No. LOF No. CTXS No. Movement: present. Other c/o: YUSUF much improved Medication list reviewed. SENSITIVE EXAM: Sensitive exam not performed. Physical Exam See Flow Sheet Abd: soft, nontender A/P 28w3d Estimated Date of Delivery: 02/12/25 ASSESSMENT/PLAN: 1. Supervision of high risk , antepartum (HCC) - ICD9: V23.9, ICD10: O09.90 (primary diagnosis) 28 week labs today, not 1 hr - URINE OB DIP B/O 2. Obesity in (HCC) - ICD9: 649.10, ICD10: O99.210 growth scans ordered - URINE OB DIP B/O 4. Diet controlled gestational diabetes mellitus (GDM) in second trimester ([facility]) - ICD9: 648.83, ICD10: O24.410 BS log reviewed, only 2 Postprandials elevated, cont. to monitor - URINE OB DIP B/O Yasmin Delvalle MD [facility] 11-23-2024 Miscellaneous Notes Formattin g of this note might be different from the original. RR- VB No. LOF No. CTXS No. Movement: present. Other c/o: YUSUF much improved Medication list reviewed. SENSITIVE EXAM: Sensitive exam not performed. Physical Exam See Flow Sheet Abd: soft, nontender A/P 28w3d Estimated Date of Delivery: 02/12/25 ASSESSMENT/PLAN: 1. Supervision of high risk , antepartum ([facility]) - ICD9: V23.9, ICD10: O09.90 (primary diagnosis) 28 week labs today, not 1 hr - URINE OB DIP B/O 2. Obesity in ([facility]) - ICD9: 649.10, ICD10: O99.210 growth scans ordered - URINE OB DIP B/O 4. Diet controlled gestational diabetes mellitus (GDM) in second trimester ([facility]) - ICD9: 648.83, ICD10: O24.410 BS log reviewed, only 2 Postprandials elevated, cont. to monitor - URINE OB DIP B/O Yasmin Delvalle MD documented in this encounter [facility] 11-23-2024 Instructions Alison Heard MA - 11/23/2024 3:39 PM EDT SEQUENTIAL SCREENINGS The [facility] offers sequential screenings for women who are interested in screenings for chromosomal abnormalities and certain defects during a . The sequential screen combines ultrasound and blood tests to determine the risk of chromosomal abnormalities, including Down's Syndrome (Trisomy 21) and Trisomy 18, as well as open neural tube defects including spina bifida. Ultrasound examination is performed between 11 weeks and 13 weeks gestational age. Blood tests are drawn after the ultrasound and again later in the between 15 and 21 weeks gestational age. Please let your physician know if you are interested in this testing. It will require an appointment with our interactive video technician. This is not an ultrasound performed by a physician in our office during a routine visit. SIGNS AND SYMPTOMS OF LABOR 1. Contractions every 10 minutes or more often 2. Clear, pink, or brownish fluid (water) leaking from vagina 3. Feeling that baby is pushing down, pressure 4. Low, dull backache 5. Cramps that feel like a period 6. Cramps with or without diarrhea If you notice any of the above symptoms, contact our office at [phone] and ask to speak with a nurse. After hours, you can call doctors registry at [phone] OR call [facility] at [phone] and ask to have the doctor transition lead paged. If you consider this an emergency, dial -[phone] or go to your nearest emergency department. NEED HELP? Are you dealing with a violent or abusive relationship? Are you a victim of rape or sexual assult? Call [facility] ([place]) 24 hour Crisis Hotline: 109.514.2707 or 274-926-6965. MANUAL Your Guide to a Healthy manual is now on-line. Visit [email or web address] to download your free copy documented in this encounter [facility] 10-26-2024 Progress note Formatting of t his note might be different from the original. RR- VB No. LOF No. CTXS No. Movement: present. Other c/o: YUSUF since last week. Went to ED for migraine cocktail and helped some but back. No visual changes. Resting helps, closing her eyes. Doesn't keep her awake, tried benadryl and that made her sleep (tried this b/c theygave her in ED). No h/o YUSUF this persistent when not . Feels lightheaded but not like room is spinning. Medication list reviewed. SENSITIVE EXAM: Sensitive exam not performed. Physical Exam See Flow Sheet Abd: soft, nontender, gravid Ext: edema: Trace A/P 24w3d Estimated Date of Delivery: 02/12/25 Assessment & Plan Supervision of high risk , antepartum (HCC) Orders: SYPHILIS TREPONEMAL W/REFLEX; Future ANEMIA REFLEX PANEL; Future COMPLETE BLOOD COUNT; Future COMPREHENSIVE METABOLIC PANEL; Future PROTEIN / CREATININE RATIO; Future 24 weeks gestation of ([facility]) Orders: COMPLETE BLOOD COUNT; Future COMPREHENSIVE METABOLIC PANEL; Future PROTEIN / CREATININE RATIO; Future Obesity in ([facility]) Orders: COMPLETE BLOOD COUNT; Future COMPREHENSIVE METABOLIC PANEL; Future PROTEIN / CREATININE RATIO; Future Elevated hemoglobin A1c GDM FBS 86-95 feels like good control since watching these Orders: COMPLETE BLOOD COUNT; Future COMPREHENSIVE METABOLIC PANEL; Future PROTEIN / CREATININE RATIO; Future headache in second trimester ([facility]) Orders: COMPLETE BLOOD COUNT; Future COMPREHENSIVE METABOLIC PANEL; Future PROTEIN / CREATININE RATIO; Future YUSUF- d/w her symptomatic measures, trial reglan and tylenol, maybe add fioricet if not relieved w/ this, check labs 28 week labs ordered H/o PE< didn't have thrombophilia workup. States father had sushma workup after he had a VTE. D/w her risks/benefits of antiocagulation, would likely recommend PP. Yasmin Delvalle M.D. [facility] 10-26-2024 Miscellaneous Notes Formattin g of this note might be different from the original. RR- VB No. LOF No. CTXS No. Movement: present. Other c/o: YUSUF since last week. Went to ED for migraine cocktail and helped some but back. No visual changes. Resting helps, closing her eyes. Doesn't keep her awake, tried benadryl and that made her sleep (tried this b/c theygave her in ED). No h/o YUSUF this persistent when not . Feels lightheaded but not like room is spinning. Medication list reviewed. SENSITIVE EXAM: Sensitive exam not performed. Physical Exam See Flow Sheet Abd: soft, nontender, gravid Ext: edema: Trace A/P 24w3d Estimated Date of Delivery: 02/12/25 Assessment & Plan Supervision of high risk , antepartum (HCC) Orders: SYPHILIS TREPONEMAL W/REFLEX; Future ANEMIA REFLEX PANEL; Future COMPLETE BLOOD COUNT; Future COMPREHENSIVE METABOLIC PANEL; Future PROTEIN / CREATININE RATIO; Future 24 weeks gestation of (HCC) Orders: COMPLETE BLOOD COUNT; Future COMPREHENSIVE METABOLIC PANEL; Future PROTEIN / CREATININE RATIO; Future Obesity in (HCC) Orders: COMPLETE BLOOD COUNT; Future COMPREHENSIVE METABOLIC PANEL; Future PROTEIN / CREATININE RATIO; Future Elevated hemoglobin A1c GDM FBS 86-95 feels like good control since watching these Orders: COMPLETE BLOOD COUNT; Future COMPREHENSIVE METABOLIC PANEL; Future PROTEIN / CREATININE RATIO; Future headache in second trimester (HCC) Orders: COMPLETE BLOOD COUNT; Future COMPREHENSIVE METABOLIC PANEL; Future PROTEIN / CREATININE RATIO; Future YUSUF- d/w her symptomatic measures, trial reglan and tylenol, maybe add fioricet if not relieved w/ this, check labs 28 week labs ordered H/o PE< didn't have thrombophilia workup. States father had sushma workup after he had a VTE. D/w her risks/benefits of antiocagulation, would likely recommend PP. Yasmin Delvalle M.D. documented in this encounter [facility] 10-21-2024 Discharge summary [facility] 10-21-2024 Discharge summary Note Date/Time October 21, 2024 4:14pm [facility] Medical Records Department [address] [place] [address] Emergency Department Summary 10/21/24 MR#: [id number] Acct: [id number] Name: LAURA CASTELLANOS Rep #:[id number] : 1995 29 From: Aldo martinez DO PCP: Dr. Blessing Pena MD Status:REG E R Location: ED ADDENDUM by Dr. Aldo Rodriguez DO on 10/21/24 at 1614 Given that patient has no neurological deficits or concerning symptoms I do not think CT head was needed. Patient's pain also improved with migraine cocktail. 10/21/24 1614<Electronically signed by Aldo Rodriguez DO> Cosigner Signature (if applicable): cc: Dr. Blessing Pena MD ~* Signed HPI History of Present Illness Chief Complaint: Headache Narrative Narrative: Chief complaint and HPI: Headache. 29-year-old female who is at 23 weeks presents for evaluation of headache. Patient states several days ago she woke up with a mild headache that progressively worsened. Associated symptoms are light and sound sensitivity. She states she has been taking Tylenol with some relief. She has had headaches in the past. She denies any fever, chills, neck pain, vision changes, numbness/tingling, weakness, neurological deficit, vomiting, URI symptoms, chest pain, shortness of breath. She states that she has baseline nausea from her . Patient was seen at the [facility] office today in which they told her to come over to the emergency department to receivea migraine cocktail. Review of systems: See HPI Medications: As listed on the chart Allergies: As listed on the chart PFSH: Per chart Vital signs: As listed on the chart. Reviewed. Physical exam: Gen: A&O x3, NAD, sitting with the lights dimmed Head: Normocephalic, atraumatic Eyes: No sclera icterus, conjunctiva clear, PERRL, EOMI ENT: TMs clear BL, moist mucous membranes, no facial asymmetry CV: RRR, no murmurs, no peripheral edema Resp: Lungs CTA BL, no w/r/c Musc: Full ROM, no deformity, strength +5/5 in all extremities Skin: Warm, dry, intact Neuro: Alert, oriented, grossly intact, sensation intact, no focal deficits Psych: Cooperative, appropriate mood and affect PFSH PFSH Medical History no medical history Home Medications ?Medication ?Instructions ?Recorded ?Last Taken ?Type Norethindrone [Dian] 0.35 mg PO DAILY 03/06/20 Un known History Prebiotic 1 cap PO DAILY 03/06/20 Unkn own History aspirin 81 mg tablet,delayed 81 mg PO DAILY@0800 03/06 Unknown History release Allergy/AdvReac Type Severity Reaction Status Date / Time No Known Allergies Allergy Verified 10/21/24 12:25 Surgical History no surgical history Social History Smoking Status: Never smoker EXAM Physical Exam Const Vital Signs: 10/21/24 12:24 10/21/24 14:24 Temperature 98.1 F Temperature Source Temporal Pulse Rate 81 70 Respiratory Rate 14 Blood Pressure 128/81 H 128/70 H Blood Pressure Mean 96 89 Pulse Ox 98 100 Oxygen Delivery Method Room Air MDM MDM MDM Narrative Medical decision making narrative: 29-year-old female who is at 23 weeks presents for evaluation of headache. Patient states several days ago she woke up with a mild headache that progressively worsened. Associated symptoms are light and sound sensitivity. She states she has been taking Tylenol with some relief. Patient was seen at the [facility] office today in which they told her to come over to the emergency department to receive a migraine cocktail. Denies acute onset of headache reaching maximal intensity in under one hour. The onset of the headache was not timed with exertional activity or trauma. Patient has not experienced any fever, unusual neck pain or stiffness, syncope, near syncope, neurological deficit. On presentation, patient in no acute distress. Her vitals are stable. Physical exam is unremarkable. Patient's symptoms consist of tension headache, migraine headache. Will give migraine cocktail however given she is will not give Toradol and instead will give morphine. Patient was given the risk and benefits of morphine during . She consented. On reevaluation, patient states her headache has improved. Patient is stable to discharge home. Follow-up with primary care physician. Return precautions explained. She felt understand the plan. Patient stable to discharge home. Impression: 1. Headache, suspect migraine 2. Second trimester Discharge Plan Triage Chief Complaint: Headache ED Provider: Aldo Rodriguez Dx/Rx/DC Orders Prescriptions: No Action aspirin 81 MG tablet 81 mg PO DAILY@0800 Norethindrone [Dian] 0.35 MG tablet 0.35 mg PO DAILY Prebiotic 1 cap PO DAILY Primary Care Provider: Tona Boggs Referrals: Tona Boggs MD [Primary Care Provider] - Print Language: Italian What to do if you have Problems For any increased pain, shortness of breath, bleeding, nausea or vomiting, chestpain, or any unexpected problems, contact your Primary Care Provider. Call Doctors Registry ([phone]) or report to the closest Emergency Room. Call 911 if necessary. 10/21/24 1612 <Electronically signed by Aldo Rodriguez DO> Cosigner Signature (if applicable): CC: Dr. Blessing Pena MD ~ Signed [facility] Work Phone: [phone] 963-235907-11-2025 Progress note* Quick Notes - Ashley Mishra APRN.CNM - 10/21/2024 11:53 AM EDT JAX-S: Laura Castellanos is a 29 year old female who presents at 02/12/2025, by Last Menstrual Period for a problem visit. Denies chest pain, shortness of breath, vaginal bleeding, leakage of fluid, or dysuria Headaches since Thursday but getting worse. Improved some on thu and back today. Nauseated. No history of migraines and this is new. Tylenol helped a little but didn't take it away. Headache wraps around head, and today back of neck and frontal behind eyes. Denies any visual changes. Nausea. Blood glucose levels in good range, did not have log. Feels she has good control and avoids what she knows elevates her levels. O: See flow sheet Gen: No apparent distress Abd: Gravid, nontender No clonus, DTR +2/4 bilateral ASSESSMENT/PLAN: 1. Supervision of high risk , antepartum 2. 23 weeks gestation of 3. headache in second trimester -BP normal today, no signs of preeclampsia. -Reviewed option for reglan/benadryl/flexeril for migraine relief or to go to ED since this has been 5 days with no relief. At this time she would like to go to the ED. ED called and notified patientseen and did not need to go to L&D PTL precautions reviewed and when to call RTO as scheduled Ashley Mishra APRN.CNM [facility]07-11-2025 Miscellaneous Notes* Quick Notes - Ashley Mishra APRN.CNM - 10/21/2024 11:53 AM EDT JAX-S: Laura Castellanos is a 29 year old female who presents at 02/12/2025, by Last Menstrual Period for a problem visit. Denies chest pain, shortness of breath, vaginal bleeding, leakage of fluid, or dysuria Headaches since Thursday but getting worse. Improved some on thu and back today. Nauseated. No history of migraines and this is new. Tylenol helped a little but didn't take it away. Headache wraps around head, and today back of neck and frontal behind eyes. Denies any visual changes. Nausea. Blood glucose levels in good range, did not have log. Feels she has good control and avoids what she knows elevates her levels. O: See flow sheet Gen: No apparent distress Abd: Gravid, nontender No clonus, DTR +2/4 bilateral ASSESSMENT/PLAN: 1. Supervision of high risk , antepartum 2. 23 weeks gestation of 3. headache in second trimester -BP normal today, no signs of preeclampsia. -Reviewed option for reglan/benadryl/flexeril for migraine relief or to go to ED since this has been 5 days with no relief. At this time she would like to go to the ED. ED called and notified patientseen and did not need to go to L&D PTL precautions reviewed and when to call RTO as scheduled Ashley Mishra APRN.CNM documented in this encounterTri[facility]25 Instructions* Patient Instructions* Marcelle Mehta LPN - 10/21/2024 11:34 AM EDT SEQUENTIAL SCREENINGS The [facility] offers sequential screenings for women who are interested in screenings for chromosomal abnormalities and certain defects during a . The sequential screen combinesultrasound and blood tests to determine the risk of chromosomal abnormalities, including Down's Syndrome (Trisomy 21) and Trisomy 18, as well as open neural tube defects including spina bifida. Ultrasound examination is performed between 11 weeks and 13 weeks gestational age. Blood tests are drawn after the ultrasound and again later in the between 15 and 21 weeks gestational age. Please let your physician know if you are interested in this testing. It will require an appointment withour interactive video technician. This is not an ultrasound performed by a physician in our office during a routine visit. SIGNS AND SYMPTOMS OF LABOR 1. Contractions every 10 minutes or more often 2. Clear, pink, or brownish fluid (water) leaking from vagina 3. Feeling that baby is pushing down, pressure 4. Low, dull backache 5. Cramps that feel like a period 6. Cramps with or without diarrhea If you notice any of the above symptoms, contact our office at [phone] and ask to speak with anurse. After hours, you can call doctors registry at [phone] OR call [facility] at [phone] ask to have the doctor transition lead paged. If you consider this an emergency, dial 12-12-5 or go to your nearest emergency department. NEED HELP? Are you dealing with a violent or abusive relationship? Are you a victim of rape or sexual assult? Call [facility] ([place]) 24 hour Crisis Hotline: 799.614.2100 or 115-398-2431. MANUAL Your Guide to a Healthy manual is now on-line. Visit [email or web address] to download your free copy documented in this encounterTrihealth [facility]07-11-2025 Telephone encounter Note * Telephone Encounter - Bozena Patton RN - 10/21/2024 10:08 AM EDT Patient called and appointment scheduled. Bozena Patton RN [facility]07-11-2025 Miscellaneous Notes* Telephone Encounter - Bozena Patton RN - 10/21/2024 10:08 AM EDT Patient called and appointment scheduled. Bozena Patton RN * Telephone Encounter - Ashley Mishra APRN.CNM - 10/21/2024 9:56 AM EDT Please just fit her in I will see her at 1130 * Telephone Encounter - Bozena Patton RN - 10/21/2024 9:51 AM EDT Patient calling back in this morning asking for an appointment to be seen. Patient states she is still having a headache. She did take Tylenol last night as Dr. Palencia instructed and she states it did improve her headache but did not take it away. Patient states she has not taken her blood pressure since Thursday, she does have the ability to take it at home, instructed patient to take. Would you like to work patient into your schedule and if so where? Bozena Patton RN * Telephone Encounter - Lisandro Palencia MD - 10/20/2024 4:42 PM EDT Message sent to patient * Telephone Encounter - Bozena Patton RN - 10/20/2024 4:27 PM EDT Can you review in CP's absence? Bozena Patton RN documented in this encounterTrihealth [facility]07-11-2025 Telephone encounter Note * Telephone Encounter - Ashley Mishra APRN.CNM - 10/21/2024 9:56 AM EDT Please just fit her in I will see her at 1130 [facility]07-11-2025 Telephone encounter Note* Telephone Encounter - Bozena Patton RN - 10/21/2024 9:51 AM EDT Patient calling back in this morning asking for an appointment to be seen. Patient states she is still having a headache. She did take Tylenol last night as Dr. Palencia instructed and she states it did improve her headache but did not take it away. Patient states she has not taken her blood pressure since Thursday, she does have the ability to take it at home, instructed patient to take. Would you like to work patient into your schedule and if so where? Bozena Patton RN [facility]07-10-2025 Telephone encounter Note* Telephone Encounter - Lisandro Palencia MD - 10/20/2024 4:42 PM EDT Message sent to patient [facility] Work Phone: 1(742) 722-407007-10-2025 Telephone encounter Note* Telephone Encounter - Bozena Patton RN - 10/20/2024 4:27 PM EDT Can you review in CP's absence? Bozena Patton RN [facility]06-18-2025 NoteHNO ID: [id number] Author: ASHLEY MISHRA APRN.KARI Service: ? Author Type: Cardiology Physician Type: Progress Notes Filed: 10/04/2024 11:38 Note Text: JAX-S: Laura Castellanos is a 29 year old female who presents at 17w2d with PHYLLIS:02/12/2025, by Last Menstrual Period for a routine visit. Denies headache, visual changes, chest pain, shortness of breath, vaginal bleeding, leakage of fluid, or dysuria. Feeling well, no complaints. Had dizzy spell and checked her blood glucose level. This was elevated and instructed to test blood glucose four times a day and to bring to visit today. O: See flow sheet Gen: No apparent distress Abd: Gravid, nontender 6/10 elevated fasting 3/25 1h PP elevated ASSESSMENT/PLAN: 1. Supervision of high risk , antepartum -Continue PNV -Continue ASA -20 wk Anatomy US -Discussed CBE and information 2. 20 weeks gestation of 3. Obesity in -pregravid BMI 35 4. NIVIA on CPAP -Had followed up with sleep medicine and had stopped using it. Recommended to notify provider for recommendations in . 5. Diet Controlled gestational diabetes mellitus in second trimster -Reviewed with blood glucose levels, diagnosis of GDM. Reviewed importance of diet control, walking 15-20 minutes after meals, and testing 4 times a day. To send log weekly. 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 Reviewed if levels continue to be increased will imitate insulin therapy. 6.History of pulmonary embolism -postsurgical PE -Anticoagulation therapy PP PTL precautions reviewed and when to call RTO in 4 weeks Ashley Mishra APRN.CN[facility] History of Present illness Narrative* Ashley Mishra APRN.CNM - 09/28/2024 1:59 PM EDT JAX-S: Laura Castellanos is a 29 year old female who presents at 17w2d with PHYLLIS:02/12/2025, by Last Menstrual Period for a routine visit. Denies headache, visual changes, chest pain, shortness of breath, vaginal bleeding, leakage of fluid, or dysuria. Feeling well, no complaints. Had dizzy spell and checked her blood glucose level. This was elevated and instructed to test blood glucose four times a day and to bring to visit today. O: See flow sheet Gen: No apparent distress Abd: Gravid, nontender 09/20 elevated fasting 07/05 1h PP elevated ASSESSMENT/PLAN: 1. Supervision of high risk , antepartum -Continue PNV -Continue ASA -20 wk Anatomy US -Discussed CBE and information 2. 20 weeks gestation of 3. Obesity in -pregravid BMI 35 4. NIVIA on CPAP -Had followed up with sleep medicine and had stopped using it. Recommended to notify provider for recommendations in . 5. Diet Controlled gestational diabetes mellitus in second trimster -Reviewed with blood glucose levels, diagnosis of GDM. Reviewed importance of diet control, [id number] minutes after meals, and testing 4 times a day. To send log weekly. 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 Reviewed if levels continue to be increased will imitate insulin therapy. 6.History of pulmonary embolism -postsurgical PE -Anticoagulation therapy PP PTL precautions reviewed and when to call RTO in 4 weeks Ashley Mishra APRN.CNM documented in this encounterTrihealth [facility]06-18-2025 Instructions* Patient Instructions* Ashley Mishra APRN.CNM - 09/28/2024 1:46 PM EDT Send blood glucose log weekly SIGNS AND SYMPTOMS OF LABOR 1. Contractions every 10 minutes or more often 2. Clear, pink, or brownish fluid (water) leaking from vagina 3. Feeling that baby is pushing down, pressure 4. Low, dull backache 5. Cramps that feel like a period 6. Cramps with or without diarrhea If you notice any of the above symptoms, contact our office at [phone] and ask to speak with anurse. After hours, you can call doctors registry at [phone] OR call [facility] at [phone] ask to have the doctor transition lead paged. If you consider this an emergency, dial 8-8-3 or go to your nearest emergency department. NEED HELP? Are you dealing with a violent or abusive relationship? Are you a victim of rape or sexual assult? Call [facility] ([place]) 24 hour Crisis Hotline: 653.294.5562 or 943-717-5688. MANUAL Your Guide to a Healthy manual is now on-line. Visit [email or web address] to download your free copy documented in this encounterTrihealth [facility]05-27-2025 Instructions* Patient Instructions* Ashley Mishra APRN.CNM - 09/06/2024 1:21 PM EDT [email or web address]://wwwnc.cdc.gov/travel/destinations/traveler/none/[email or web address]-[email or web address] Lemon Eucalpytus oil SIGNS AND SYMPTOMS OF LABOR 1. Contractions every 10 minutes or more often 2. Clear, pink, or brownish fluid (water) leaking from vagina 3. Feeling that baby is pushing down, pressure 4. Low, dull backache 5. Cramps that feel like a period 6. Cramps with or without diarrhea If you notice any of the above symptoms, contact our office at [phone] and ask to speak with anurse. After hours, you can call doctors registry at [phone] OR call [facility] at [phone] ask to have the doctor transition lead paged. If you consider this an emergency, dial 9-1-9 or go to your nearest emergency department. NEED HELP? Are you dealing with a violent or abusive relationship? Are you a victim of rape or sexual assult? Call [facility] ([place]) 24 hour Crisis Hotline: 655.882.3901 or 040-825-5014. MANUAL Your Guide to a Healthy manual is now on-line. Visit [email or web address] to download your free copy documented in this encounterTrihealth [facility]05-27-2025 Miscellaneous Notes* Quick Notes - Ashley Mishra APRN.CNM - 09/06/2024 1:15 PM EDT JAX-S: Laura Castellanos is a 29 year old female who presents at 17w2d with PHYLLIS:02/12/2025, by Last Menstrual Period for a routine visit. Denies headache, visual changes, chest pain, shortness of breath, vaginal bleeding, leakage of fluid, or dysuria. Feeling well, no complaints. O: See flow sheet Gen: No apparent distress Abd: Gravid, nontender ASSESSMENT/PLAN: 1. Supervision of high risk , antepartum -Continue PNV -Continue ASA -20 wk Anatomy US -Discussed CBE and information 2. 17 weeks gestation of 3. Obesity in -pregravid BMI 35 4. NIVIA on CPAP -Had followed up with sleep medicine and had stopped using it. Recommended to notify provider for recommendations in . 5. History of pulmonary embolism -postsurgical PE -Anticoagulation therapy PP PTL precautions reviewed and when to call RTO in 3 weeks Ashley Mishra APRN.CNM documented in this encounterTrihealth [facility]05-27-2025 Progress note* Quick Notes - Ashley Mishra APRN.CNM - 09/06/2024 1:15 PM EDT JAX-S: Laura Castellanos is a 29 year old female who presents at 17w2d with PHYLLIS:02/12/2025, by Last Menstrual Period for a routine visit. Denies headache, visual changes, chest pain, shortness of breath, vaginal bleeding, leakage of fluid, or dysuria. Feeling well, no complaints. O: See flow sheet Gen: No apparent distress Abd: Gravid, nontender ASSESSMENT/PLAN: 1. Supervision of high risk , antepartum -Continue PNV -Continue ASA -20 wk Anatomy US -Discussed CBE and information 2. 17 weeks gestation of 3. Obesity in -pregravid BMI 35 4. NIVIA on CPAP -Had followed up with sleep medicine and had stopped using it. Recommended to notify provider for recommendations in . 5. History of pulmonary embolism -postsurgical PE -Anticoagulation therapy PP PTL precautions reviewed and when to call RTO in 3 weeks Ashley Mishra APRN.CNM [facility]04-29-2025 Evaluation + Plan note* Assessment & Plan Note - Citlaly Stuart MD - 08/09/2024 5:06 PM EDTAssociated Problem(s): Supervision of high risk , antepartum (HCC) STOP vaginal Progesterone [facility]04-29-2025 Evaluation + Plan note* Assessment & Plan Note - Citlaly Stuart MD - 08/09/2024 5:06 PM EDTAssociated Problem(s): Pulmonary embolism (HCC) - after leg surgery- would offer PP anticoagulation therapy- need to discuss risks/benefits at upcoming appts. I can't see any blood work on her chart or scanned documents- if she had work up done for clotting disorder. Continue ASA at this time [facility]04-29-2025 Miscellaneous Notes* Assessment & Plan Note - Citlaly Stuart MD - 08/09/2024 5:06 PM EDTAssociated Problem(s): Supervision of high risk , antepartum (HCC) STOP vaginal Progesterone * Assessment & Plan Note - Citlaly Stuart MD - 08/09/2024 5:06 PM EDT Associated Problem(s): Pulmonary embolism ([facility]) - after leg surgery- would offer PP anticoagulation therapy- need to discuss risks/benefits at upcoming appts. I can't see any blood work on her chart or scanned documents- if she had work up done for clotting disorder. Continue ASA at this time * Quick Notes - Citlaly Stuart MD - 08/09/2024 4:57 PM EDT DM-Pt doing well. Denies vaginal Bleeding, Leaking fluid, or regular Contractions. Pt reports good movement Physical Exam: Gen: female in no apparent distress Abd: soft, Gravid. Non tender to palpation. See flow sheet @ 13.2 weeks Assessment & Plan Supervision of high risk , antepartum (HCC) STOP vaginal Progesterone Pulmonary embolism, unspecified chronicity, unspecified pulmonary embolism type, unspecified whether acute cor pulmonale present ([facility]) - after leg surgery- would offer PP anticoagulation therapy- need to discuss risks/benefits at upcoming appts. I can't see any blood work on her chart or scanned documents- if she had work up done for clotting disorder. Continue ASA at this time Obesity in (HCC) Asa to continue Declines 16 week anatomy Will schedule 20 week anatomy us 13 weeks gestation of (HCC) Citlaly James MD documented in this encounterTrihealth [facility]04-29-2025 Progress note* Quick Notes - Citlaly Stuart MD - 08/09/2024 4:57 PM EDT DM-Pt doing well. Denies vaginal Bleeding, Leaking fluid, or regular Contractions. Pt reports good movement Physical Exam: Gen: female in no apparent distress Abd: soft, Gravid. Non tender to palpation. See flow sheet @ 13.2 weeks Assessment & Plan Supervision of high risk , antepartum (HCC) STOP vaginal Progesterone Pulmonary embolism, unspecified chronicity, unspecified pulmonary embolism type, unspecified whether acute cor pulmonale present (HCC) - after leg surgery- would offer PP anticoagulation therapy- need to discuss risks/benefits at upcoming appts. I can't see any blood work on her chart or scanned documents- if she had work up done for clotting disorder. Continue ASA at this time Obesity in (HCC) Asa to continue Declines 16 week anatomy Will schedule 20 week anatomy us 13 weeks gestation of (HCC) Citlaly James MD [facility]04-29-[facility] Instructions* Patient Instructions* Chelsy Walter MA - 08/09/2024 3:22 PM EDT SEQUENTIAL SCREENINGS The [facility] offers sequential screenings for women who are interested in screenings for chromosomal abnormalities and certain defects during a . The sequential screen combinesultrasound and blood tests to determine the risk of chromosomal abnormalities, including Down's Syndrome (Trisomy 21) and Trisomy 18, as well as open neural tube defects including spina bifida. Ultrasound examination is performed between 11 weeks and 13 weeks gestational age. Blood tests are drawn after the ultrasound and again later in the between 15 and 21 weeks gestational age. Please let your physician know if you are interested in this testing. It will require an appointment withour interactive video technician. This is not an ultrasound performed by a physician in our office during a routine visit. SIGNS AND SYMPTOMS OF LABOR 1. Contractions every 10 minutes or more often 2. Clear, pink, or brownish fluid (water) leaking from vagina 3. Feeling that baby is pushing down, pressure 4. Low, dull backache 5. Cramps that feel like a period 6. Cramps with or without diarrhea If you notice any of the above symptoms, contact our office at [phone] and ask to speak with anurse. After hours, you can call doctors registry at [phone] OR call [facility] at [phone] ask to have the doctor transition lead paged. If you consider this an emergency, dial 0--6 or go to your nearest emergency department. NEED HELP? Are you dealing with a violent or abusive relationship? Are you a victim of rape or sexual assult? Call [facility] ([place]) 24 hour Crisis Hotline: 367.552.7887 or 866-521-0136. MANUAL Your Guide to a Healthy manual is now on-line. Visit [email or web address] to download your free copy documented in this encounterTrihealth [facility]03-20-2025 Telephone encounter Note * Telephone Encounter - Regina Benitez RN - 06/30/2024 10:01 AM EDT Patient notified. Regina Benitez RN [facility]03-20-2025 Miscellaneous Notes* Telephone Encounter - Regina Benitez RN - 06/30/2024 10:01 AM EDT Patient notified. Regina Benitez RN * Telephone Encounter - Bozena Patton RN - 06/30/2024 8:13 AM EDT Left message to call office. Bozena Patton RN * Telephone Encounter - Bozena Patton RN - 06/30/2024 8:12 AM EDT +UTI, Keflex sent. Julia Hester APRN.CNP documented in this encounterTrihealth Good Sam[facility]03-20-2025 Telephone encounter Note * Telephone Encounter - Bozena Patton RN - 06/30/2024 8:13 AM EDT Left message to call office. Bozena Patton RN [facility]03-20-2025 Telephone encounter Note* Telephone Encounter - Bozena Patton RN - 06/30/2024 8:12 AM EDT +UTI, Keflex sent. Julia Hester APRN.CNP [facility]03-20-2025 Telephone encounter Note* Telephone Encounter - Julia Hester APRN.CNP - 06/30/2024 6:56 AM EDT +UTI, Keflex sent. Julia Hester APRN.MORTGAGE COUNSELOR [facility]03-20-2025 Miscellaneous Notes* Telephone Encounter - Julia Hester APRN.CNP - 06/30/2024 6:56 AM EDT +UTI, Keflex sent. Julia Hester APRN.MORTGAGE COUNSELOR documented in this encounterTrihealth Good Sam[facility]itan Hospital03-17-2025 Instructions* Patient Instructions* Marcelle Mehta LPN - 06/27/2024 2:27 PM EDT Please select the following link to access the [facility] Your Guide to a Healthy . [email or web address] documented in this encounterTrihealth Good Samaritan Hospital03-12-2025 NoteHNO ID: [id number] Author: JULIA HESTER APRN.SVETLANA Service: ? 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 INITIAL OB ASSESSMENT HPI: Laura is a 29 year old White Female here to establish Obstetrical Care. Patient's last menstrual period was 05/08/2024 (approximate). from OB Dating Form. was planned IUI was done 05/23/24 Complaints: No OB History Gravida1 Para0 Term0 Preterm0 AB0 Living0 SAB0 IAB0 Ectopic0 Multiple0 Live Births0 Previous history: Prior : never History of 4th degree laceration: NA History of shoulder dystocia: No History of Hypertensive disorders including pre-eclampsia or gestational hypertension: No History of gestational diabetes: NA Patient's Risk Screening for delivery: Have you had a prior taylor between 20w and 36w6d? No How many pregnancies have you had before? 0 Did you have a previous baby with a GBS Infection? No Please select all that apply for any prior : N/A MEDICAL/PSYCHOSOCIAL HISTORY: History of hemorrhage or bleeding concerns: Yes Self and family hx of blood clots Thyroid Disease: No History of chronic hypertension: No History of pre-existing diabetes: No No results found for: ABORHD BMI 36.67 kg/(m2) Last Pap: 08/17/2023 History of abnormal pap: No Prior treatment for cervical dysplasia: none. Last HPV: 08/17/2023 History of STDs: None Partner History of STDs: None Did you have a partner with Herpes? No Tobacco use: No E-Cigarette/Vaping Use: No Caffeine use: Yes Drug use: No Alcohol use: No Multivitamin with Folic acid: Yes Would refuse blood transfusion if medically necessary: No Social Needs: How often does this describe you? I don't have enough money to pay my bills: Never Within the past 12 months, have you worried that your food would run out before you had money to buy more? Never In the past 12 months, has lack of reliable transportation kept you from going to medical appointments or work, or from getting things needed for daily living? Never In the past 12 months, have you had any concerns about having a place to live, or about the condition or quality of your housing? Never Would you like more information on any of the following (please check all that apply)? Not interested Social History: Do you have any history of depression, anxiety, PTSD, or other mood problems? No Do you have a history of abuse or trauma that may impact your experience? No Are you currently employed? Yes Depression/Anxiety Screening: denies symptoms of depression. OB Depression and Anxiety Screening- This Encounter (since 06/26/2024) None Genetic Screening: Partner present: No Patient verbalized knowledge of partner family health history: Yes Do you or your partner have any personal or family history of defects not previously discussed: No Do you have history of a complicated by anomaly, genetic condition, or demise: No Preeclampsia Risk Screening: Screening for prevention of preeclampsia: High risk factors: None Moderate risk ractors: Nulliparity and Obesity (body mass index greater than 30) OB Risk Screening: Completed, no positive findings documented. Marital Status: Partner: Name: Forrest Age: 36 Occupation: [employer] Gender: Male PAST MEDICAL HISTORY Diagnosis Date Low anti-Mullerian hormone .3 NIVIA on CPAP 2017 2023 - has not been using CPAP PCOS (polycystic ovarian syndrome) Pulmonary embolism (HCC) 2018 post leg surgery PAST SURGICAL HISTORY Procedure Laterality Date APPENDECTOMY HX DANDC, DIAG AND/OR THERAPEUTIC 02/2020 KNEE SURGERY HX 2019 LEG SURGERY HX Current Outpatient Medications Medication Sig Dispense Refill vit37/iron/folic acid (PRENATA ORAL) Take 2 capsules by mouth once daily. coenzyme Q10 (CO Q-10) 100 mg cap capsule Take 200 mg by mouth once daily. cholecalciferol, vitamin D3, (VITAMIN D3 ORAL) Take 2,000 Units by mouth once daily. calcium carbonate/vitamin D3 (CALCIUM 600 + D ORAL) Take 1 capsule by mouth once daily. 200 international unit(s) of Vitamin D Cyanocobalamin (VITAMIN B-12) 1,000 mcg TbER Take 1 tablet by mouth once daily. progesterone vaginal suppository 200 mg (CPD) Use 200 mg vaginally daily at bedtime. Unwrap and insert as directed. metFORMIN ER (GLUCOPHAGE XR) 500 mg 24 hr tablet Take 2 tablets by mouth two times a day with meals. 360 tablet 3 No current facility-administered medications for this visit. 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 INITIAL OB ASSESSMENT HPI: Laura is a 29 year old White Female here to establish Obstetrical Care. Patient's last menstrual period was 05/08/2024 (approximate). from OB Dating Form. was planned IUI was done 05/23/24 Complaints: No OB History Gravida1 Para0 Term0 Preterm0 AB0 Living0 SAB0 IAB0 Ectopic0 Multiple0 Live Births0 Previous history: Prior : never History of 4th degree laceration: NA History of shoulder dystocia: No History of Hypertensive disorders including pre-eclampsia or gestational hypertension: No History of gestational diabetes: NA Patient's Risk Screening for delivery: Have you had a prior taylor between 20w and 36w6d? No How many pregnancies have you had before? 0 Did you have a previous baby with a GBS Infection? No Please select all that apply for any prior : N/A MEDICAL/PSYCHOSOCIAL HISTORY: History of hemorrhage or bleeding concerns: Yes Self and family hx of blood clots Thyroid Disease: No History of chronic hypertension: No History of pre-existing diabetes: No No results found for: ABORHD BMI 36.67 kg/(m^2) Last Pap: 08/17/2023 History of abnormal pap: No Prior treatment for cervical dysplasia: none. Last HPV: 08/17/2023 History of STDs: None Partner History of STDs: None Did you have a partner with Herpes? No Tobacco use: No E-Cigarette/Vaping Use: No Caffeine use: Yes Drug use: No Alcohol use: No Multivitamin with Folic acid: Yes Would refuse blood transfusion if medically necessary: No Social Needs: How often does this describe you? I don't have enough money to pay my bills: Never Within the past 12 months, have you worried that your food would run out before you had money to buy more? Never In the past 12 months, has lack of reliable transportation kept you from going to medical appointments or work, or from getting things needed for daily living? Never In the past 12 months, have you had any concerns about having a place to live, or about the condition or quality of your housing? Never Would you like more information on any of the following (please check all that apply)? Not interested Social History: Do you have any history of depression, anxiety, PTSD, or other mood problems? No Do you have a history of abuse or trauma that may impact your experience? No Are you currently employed? Yes Depression/Anxiety Screening: denies symptoms of depression. OB Depression and Anxiety Screening- This Encounter (since 06/26/2024) None Genetic Screening: Partner present: No Patient verbalized knowledge of partner family health history: Yes Do you or your partner have any personal or family history of defects not previously discussed: No Do you have history of a complicated by anomaly, genetic condition, or demise: No Preeclampsia Risk Screening: Screening for prevention of preeclampsia: High risk factors: None Moderate risk ractors: Nulliparity and Obesity (body mass index greater than 30) OB Risk Screening: Completed, no positive findings documented. Marital Status: Partner: Name: Forrest Age: 38 Occupation: [employer] Gender: Male PAST MEDICAL HISTORY Diagnosis Date Low anti-Mullerian hormone .3 NIVIA on CPAP 2017 2023 - has not been using CPAP PCOS (polycystic ovarian syndrome) Pulmonary embolism (HCC) 2018 post leg surgery PAST SURGICAL HISTORY Procedure Laterality Date APPENDECTOMY HX D&C, DIAG AND/OR THERAPEUTIC 02/2020 KNEE SURGERY HX 2019 LEG SURGERY HX Current Outpatient Medications Medication Sig Dispense Refill vit37/iron/folic acid (PRENATA ORAL) Take 2 capsules by mouth once daily. coenzyme Q10 (CO Q-10) 100 mg cap capsule Take 200 mg by mouth once daily. cholecalciferol, vitamin D3, (VITAMIN D3 ORAL) Take 2,000 Units by mouth once daily. calcium carbonate/vitamin D3 (CALCIUM 600 + D ORAL) Take 1 capsule by mouth once daily. 200 international unit(s) of Vitamin D Cyanocobalamin (VITAMIN B-12) 1,000 mcg TbER Take 1 tablet by mouth once daily. progesterone vaginal suppository 200 mg (CPD) Use 200 mg vaginally daily at bedtime. Unwrap and insert as directed. metFORMIN ER (GLUCOPHAGE XR) 500 mg 24 hr tablet Take 2 tablets by mouth two times a day with meals. 360 tablet 3 No current facility-administered medications for this visit. Allergies As of Date: 06/27/2024 Allergen Noted Reaction CHLORHEXIDINE 05/24/2023 Itching LATEX 06/22/2024 Rash Fully Assessed 06/22/2024 Does patient have penicillin allergy: No REVIEW OF SYSTEMS: GENERAL: Negative for: Fever or Chills HEENT: Negative for: Headache, Impaired Vision, Ringing in Ears, Nosebleeds NECK: Negative for: Swelling, Pain, Stiffness RESPIRATORY: Negative for: Cough, Shortness of breath, Wheezing GASTROINTESTINAL: Negative for: Heartburn, Constipation, Diarrhea, Blood in stool, Vomiting and Positive for: Nausea MUSCULOSKELETAL: Negative for: Muscle or joint pain, stiffness, Joint swelling NEUROLOGIC/PSYCHIATRIC: Negative for: Weakness, Paralysis, Numbness, Tingling, Tremor, Anxiety, Depression, Memory loss SKIN: Negative for: Rash, Itching GENITOURINARY: Negative for: vaginal itching, vaginal discharge, hematuria or dysuria SENSITIVE EXAM: The sensitive examination was discussed with the Patient or Patient's Authorized Race And Sports Book Writer. As applicable, any other physician, advance practice provider, medical student, or other health professional student that will be observing or involved in the sensitive examination for educational or training purposes was discussed with the Patient or Authorized Race And Sports Book Writer. The Patient or Authorized Race And Sports Book Writer has agreed to proceed with the sensitive examination. (Sensitive examination includes inspection and/or palpation of the breasts, pelvis, prostate and anorectal regions). PHYSICAL EXAM: BP 116/64 Ht 5' 6 (1.68m) Wt 227 lb 3.2 oz (103.1kg) LMP 05/08/2024 BMI 36.69 kg/(m^2). GENERAL: pleasant in no apparent distress DERMATOLOGY: Normal, without lesions, non-icteric, and non-hirsute NECK: Supple, full range of motion, no adenopathy, and thyroid normal CHEST: Normal inspiratory effort BREAST: soft, non-tender, symmetric, no dominant mass, normal nipple-areolar complex, no lymphadenopathy, and no nipple discharge ABDOMEN: soft, non-tender, and no masses NEURO: alert and oriented x3,exam grossly non-focal PELVIS: External genitalia normal without lesions. Perineal body intact. No vaginal or cervical lesions. Cervix closed. No adnexal masses or tenderness. Clinical Pelvimetry: Pelvimetry clinically assessed as adequate Limited OB ultrasound exam: single intrauterine , positive cardiac activity, and POCUS performed. +cardiac activity, CRL consistent with LMP. Julia Hester, FEDERAL APPELLATE CLERK.MORTGAGE COUNSELOR ASSESSMENT: 29 year old at 7w1d wks gestational age PLAN: 1) Patient oriented to practice. Patient given new OB orientation folder. Discussed nutrition, folic acid supplementation, dietary guidelines, exercise, smoking, alcohol, caffeine, and drug use. Discussed gestational weight gain guidelines. Discussed routine OB labs including STD/HIV. Discussed how to access Your guide to a health and the Weigher Bulker. Reviewed midwifery and closing specialist services that are available. 2) Screening: Hemoglobin A1C: ordered Baby Aspirin: The patient has been counseled about the potential benefits of low dose aspirin in and our recommendation that this be offered to all patients, regardless of whether they meet the high risk criteria specified above. She Accepts Aneuploidy Screening: Discussed aneuploidy screening, nuchal translucency/first trimester early anatomy ultrasound and NIPT. The risks/benefits and limitations of NIPT/aneuploidy screening were reviewed including the potential for false negative and false positive results. The availability of genetic counseling was reviewed. Information on aneuploidy screening was provided. The patient chooses toproceed with First trimester early anatomy ultrasound (12-13w6d) Myriad Carrier Screening: Discussed myriad carrier screening. We discussed the availability of professional-society guided carrier screening and reviewed the conditions screened and limitations of screening. The availability of genetic counseling was reviewed. Information on carrier screening was provided. The patient Declines 3) Patient offered option of Virtual Visits. Patient unsure. May consider in future. 4) Obesity (BMI >30), will order early glucose screen or Hemoglobin A1C. Waiting on records from [facility] Follow up in 4 weeks or sooner prn. Julia Hester APRN.CNP documented in this encounterTri[facility] Instructions* Patient Instructions* Renetta Cabrera APRN.CNP - 05/26/2024 11:48 AM EST - Whole food balanced protein, controlled carbohydrate nutrition plan - 30 g of protein 3 times a day and up to 30 g of carbs at lunch and dinner only. Breakfast - 30 gm protein with limit of 2 gm carbohydrates. Options include: Premier Protein or generic 30 gm protein 1 gm sugar or 5 eggs or 2-3 eggs and some unbreaded meat and/or cheese. No fruit,vegetables, bread, grain, yogurt, Smoothies, etc. Lunch and dinner - 30 gm protein is the goal with less than 30 gm carbohydrates Snacks - all protein or more protein than carbs Protein - no carbs Egg 1 large - 6g Egg white 1 large 3.6g 3 oz is approximately the size of a deck of cards and equals 21 g protein so 4 oz is 28 gm protein Beef, Chicken, [place], Pork, Tang 1 oz 7g Fish, Tuna Fish 1 oz 7g (Starkist tuna packet 2.6 oz 17 gm protein) Seafood (Crabmeat, Shrimp, Lobster) 1 oz 6g Protein shakes (read labels) Premier Protein or generic [employer] Equate, Me[employer] High Performance- 30g protein & 1g carb - meal replacement Premier Protein powder or generic- 30 gm protein, 1g carb Premier Protein plant protein powder - 25 gm protein, 0 sugar/2 carb Vanilla and chocolate (not a meal replacement) Fairlife 30 gram protein - 30g protein & 3g carb BOOST Glucose Control Max 30g Protein Nutritional Drink - 30g protein & 1 carb - meal replacement Slimfast High Protein - 20g protein & 1g carb Ensure Max Protein Nutrition Shake 30g protein & 2 carb Protein AND carbs Beef/[place] Jerky 1 oz dried 10-15g protein - check carb count, can be high if sugar added Slim Ghulam - 6 gm protein and 4 net carb Great Value original turkey sausage sticks - 7 gm protein and 2 gm carb Sandra & Charanjit (at [facility]) Original smoked sausage sticks - 8 gm protein and 0 carb Imitation Crab Meat 1 oz - 2g protein & 4g carb Milk, skim 2% or 1% 8 oz - 8g protein & 12g carb Fairlife 2% milk 8 oz -13 g protein & 6g carb [place] yogurt Full Fat [place] Yogurt 1 cup - 20.4g protein & 9.1g carb 2% [place] Yogurt 1 cup - 22.7g protein & 9.1g carb 0% (fat-free) [place] Yogurt - 1 cup 24g protein & 9.3g carb Aldi Protein [place] yogurt single svg - 15g protein & 7g carb Chobani Zero Sugar single svg: - 12g protein & 5g carb Dannon Citizen [place] Light + Fit 1 single svg - 12g protein & 9g carb Oikos Pro single svg - 20g protein & 8g carb Oikos Triple Zero [place] Nonfat Yogurt 1 single svg - 15g protein & 7g carb :ratio, KETO Friendly Dairy Snack 1 single svg - 15g protein & 2g carb :ratio Protein 1 single svg - 25g protein & 8g carb Two Good Lowfat [place] Yogurt, [place], Lower Sugar - 12g protein & 2g carb Yoplait Protein 1 single svg 15gm protein & 5gm carb Dairy Free - [place] unsweetened [place] almond/soy 15 gm protein & 3 gm carb Dairy Free - True Goodness by [facility] coconut-based yogurt alternative 1 gm protein 1 gm net carb 180 sujatha Cheese each oz Brie 5.9g protein & 0.1g carb Cheddar 7g protein & 0.4g carb Piotr 6.7g protein & 0.7g carb Cream Cheese 1.7g protein & 1.2g carb Feta 4g protein & 1.2g carb Mozzarella 6.3g protein & 0.6g carb Parmesan 10g protein & 0.9g carb Trinid[place] 7.6g protein & 1.5g carb Cottage Cheese 1/2 c Breakstone 2% 13g protein 7g carb Yesi 2% 13g protein 5 g carb Good Culture 2% 14g protein 3g carb Galo s Low Fat 12g protein & 4g carb Legumes Lentils cup 9g protein & 20g carb Mak beans cup 7g protein & 20g carb Kidney, Black, [place], Cannellini beans cup 8g protein & 20g carb Soybeans 1/2 c 14g complete protein & 8.5g carb [place] milk, unsweetened 8 oz 1g protein & 2g carb Soy milk 8 oz 3.5g protein & 1.6g carb Tofu 1/2 cup 10g protein & 2.3g carb Peanut butter, natural 2 Tbsp 7-8g protein & 4g net carbs, 190 calories PB2 powder 2 Tbsp 6g protein & 5g carb Nuts and Seeds per oz Almonds - 5.9g protein & 6.1g carb [place] Nuts - 4.0g protein & 3.4g carb Cashews - 5.1g protein & 9.2g carb Hazelnuts - 4.2g protein & 4.7g carb Hemp seeds/hearts 3 T/30 gms - 9.5 gm complete protein and 2.5 gm carb Peanuts - 7g protein & 4.6g carb Pecans - 2.6g protein & 3.9g carb Pistachios - 5.8g protein & 7.8g carb Pumpkin Seeds - 6.9g protein & 5g carb [place] Seeds - 5.8g protein & 5.6g carb Walnuts - 4.3g protein & 3.8g carb Edamame Beans (soybean) snack 1 pack 11 gm complete protein 2 carb 5 (FIVE) gram carb vegetable options 1 cup raw OR cup cooked: Asparagus Carrera sprouts Beets Broccoli Brussel sprouts Cabbage Carrots Cauliflower Celery [place] Eggplant Green beans Lettuce Peppers Snap peas Spaghetti squash Spinach Tomato Turnips Zucchini 15 gram carb vegetable options cup cooked corn or hominy corn on the cob, large (5 oz) cup cooked green peas 4.3 gm complete protein cup cooked mak beans 1 small potato or sweet potato cup cooked potato, plain cup cooked sweet potato, plain 1 cup winter squash (pumpkin, acorn, butternut) 1 cup marinara or pasta sauce - check label cup tomato juice cup tomato puree Beans, Seeds, Nuts cup cooked beans (kidney, cr, red, green, etc.) cup cooked lentils cup baked beans 4 tablespoons nut butter <15 gram carb fruit options Berries have the lowest sugar content 1/2 medium apple - 12.5 carbs 1/2 medium avocado - 6.5 gm carbs 1/2 medium banana - 15 carbs 1/2 cup blueberries - 11 carbs - may actually help you lose weight 1/2 cup fresh cherries -11 carbs 1 medium Nella -9 carbs 1/2 cup fresh cranberries - 6.5 carbs 1/2 c grapes - 15 carbs 1/2 medium grapefruit - 10.5 carbs 1/2 cup diced honeydew melon - 8 carbs 1 medium kiwi without skin - 11 carbs 1/2 cup sliced chris -14 carbs 1 medium nectarine - 15 carbs 1 medium orange -15.5 carbs 1 medium peach -14.5 carbs 1/2 cup fresh pineapple -11 carbs 1 medium plum -7.5 carbs 1 prune - 6 carbs 1/4 c raisins - 31.25 carbs 1/2 cup raspberries -7.5 carbs 1/2 c strawberries - 12.7 carbs 1 medium tangerine -12 carbs 1/2 cup diced watermelon - 6 carbs Grains Brown rice 1/2 c 5.5g protein 24 carb White long-grain rice 1/2 c 2g protein 22.5 carb Quinoa 1/2 c 4 gm complete protein 25 carb Oatmeal, old fashioned 1/2 c 5g protein 27g carb High Protein Snack Ideas 1. Jerky 2. [place] mix without dried fruit 3. [place] roll-ups 4. [place] yogurt 5. Veggies and yogurt dip 6. Tuna 7. Hard-boiled eggs 8. Peanut butter with celery 9. Cheese slices/ Cheese Stick 10. Handful of almonds, peanuts or walnuts 11. Cottage Cheese 12. Beef sticks 13. Protein bars 14. Canned [place] 15. Pumpkin seeds 16. Nut butter 17. Protein shakes 18. Avocado and chicken salad 19. Egg muffins 20. Leftover protein or lunch meat 21. 1/2 c blended cottage cheese or [place] yogurt with dry ranch/Mrs. Dash/herb seasoning mix to make protein dip 22. 1/2 c blended cottage cheese with 1 Tbsp sugar-free dry cheesecake pudding mix 12g protein 10 carb 23. Pudding - 1 30 gm protein shake with 1/2 pkg sugar-free pudding 4 svgs - 7.8 gm protein, 5 carbeach svg 24. SF Sunkist or Root Beer with 1-2 Tablespoons heavy whipping cream 25. Mini frozen dessert bites - layer protein yogurt, skinny syrup and crushed nuts and freeze documented in this encounterTri[facility] History of Present illness Narrative* Renetta Cabrera APRN.SVETLANA - 05/26/2024 11:30 AM EST Images from the original note were not included. Virtual Visit: This is a virtual visit using [employer] Zoom Video Visit. It required patient- provider interaction for the medical decision making as documented below. I have communicated my name and active licensure. The patient s identity and physical location wereverified at the time of this visit. Either the patient or their legal resources representative has been informed of the risks and benefits of -- and alternatives to -- treatment through a remote evaluation andconsents to proceed with the evaluation remotely. Some documentation from previous visit of 01/27/2024 was copied and pasted, documentation has been reviewed and edited as necessary for today's visit. Patient Summary: Laura is a 29 year old Female who presents for follow-up evaluation of obesity/weight management to treat NIVIA, PCOS and prevent related co-morbidities. In our previous visits we havediscussed lifestyle intervention including a nutrition recommendations and physical activity optimization. Her last visit was 4 months ago. Assessment/plan from last visit: - Phentermine 37.5 mg in am - Metformin 500 MG for smaller size - 1 gm lunch and dinner Sleep medicine- auto CPAP nasal mask has not been using - does not feel she need it now IUI through [facility] Interval History PT specifies the following items as new or significant updates since the last appointment: Same weight since past 2.5 months. Decreased cravings Went to [facility] - IUI New home. Weight loss since last vist: 9 lbs for a total of 44 lbs Date: Weight: BMI: Medications: 05/26/2024 213 lb 33.86 phentermine DC - [facility] for IUI 01/27/2024 222 lb 35.29 stopped phentermine - see above, plans to restart 11/04/2023 226 lb 35.93 09/17/2023 246 lb 39.11 phentermine 37.5 mg 08/06/2023 251 lb 39.91 phentermine 15 mg 07/15/2023 253 lb 40.35 06/16/2023 257 lb 40.92 WC 45.25 in [place] 15 in Metformin 5% weight loss = 245 lbs, 10% weight loss = 232 lbs [place] body weight: 60.5 kg (133 lb 4.3 oz) Adjusted ideal body weight: 77.3 kg (170 lb 5.8 oz) Anti-obesity medications: Metformin. Benefit: decreased hunger and increased fullness Adverse effects: occasional diarrhea Phentermine Benefit: decreased hunger, increased fullness and decreased cravings Adverse effects: none Weight promoting medications: none Previous Diet (initial appointment): Awake - variable works 24 hrs on and 48 hrs off B - 30-60 min after wakening - chocolate milk at home, also had protein cookie S - 2-3 hrs later - breakfast sandwich at station L - leftovers from home or yogurt or almonds/raisins - Home: tomato soup and toast cheese S - handful almonds D - 4:30 or 6:30 usually unbreaded protein, veg - low-carb and most of the time rice/red potato/corn/pasta S - rarely ice cream Fluids - chocolate milk morning, water, Propel packs Bedtime - varies 5-8 hrs Dietary changes: Awake - 0630 2 days a week or between [id number] B - 0730 or as late as 10 - 30 gm protein shake with iced coffee 5-6 days or rare protein cereal/Fairlife milk S - rare L - 12-1pm leftovers or Aldi protein yogurt with lunch meat/cheese/dill pickle S - none D - 1630-6 pm usually protein, LC veg. Sometimes rice. Rare tapioca. Rare Fairlife chocolate milk with 1/2 protein shake S - rare Dove chocolate Current Barriers: none Exercise: stable made home gym - starting treadmill and weights, still working on house Stress: stable Sleep: stable- 8 hrs NIVIA Yes CPAP auto not using routinely because she does not feel like she needsit CrCl cannot be calculated (Patient's most recent lab result is older than the maximum 180 days allowed.). PAST MEDICAL HISTORY Diagnosis Date NIVIA on CPAP 2017 2023 - has not been using CPAP PCOS (polycystic ovarian syndrome) Pulmonary embolism (HCC) 2018 post leg surgery Current Outpatient Medications Medication Sig Dispense Refill metFORMIN (GLUCOPHAGE) 500 mg tablet Take 2 tablets by mouth two times a day with meals. 360 tablet3 CPAP/BIPAP/OTHER Type .CPAPSettings into a note to see current settings/supplies/DME information. 1Each 0 medroxyPROGESTERone (PROVERA) 10 mg tablet Take 1 tablet by mouth once daily. 10 days a month as needed to start menses 30 tablet 1 MULTIVITAMIN ORAL Take by mouth. No current facility-administered medications for this visit. 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 Latest Ref Rng & Units 06/18/2023 CMP Sodium 136 - 144 mmol/L 139 Potassium 3.7 - 5.1 mmol/L 3.8 Chloride 97 - 105 mmol/L 105 CO2 22 - 30 mmol/L 25 Glucose 74 - 99 mg/dL 94 BUN 7 - 21 mg/dL 15 Creatinine 0.58 - 0.96 mg/dL 0.81 EGFR >=60 mL/min/1.73m 100 Protein, Total 6.3 - 8.0 g/dL 7.5 Albumin 3.9 - 4.9 g/dL 4.2 Calcium 8.5 - 10.2 mg/dL 9.0 Bilirubin, Total 0.2 - 1.3 mg/dL 0.5 AST 13 - 35 U/L 12 ALT 7 - 38 U/L 15 Alkaline Phosphatase 34 - 123 U/L 60 Latest Ref Rng & Units 06/18/2023 CBC WBC 3.70 - 11.00 k/uL 7.28 RBC 3.90 - 5.20 m/uL 4.74 Hemoglobin 11.5 - 15.5 g/dL 13.0 Hematocrit 36.0 - 46.0 % 40.3 MCV 80.0 - 100.0 fL 85.0 MCH 26.0 - 34.0 pg 27.4 MCHC 30.5 - 36.0 g/dL 32.3 RDW-CV 11.5 - 15.0 % 12.7 Platelet Count 150 - 400 k/uL 319 MPV 9.0 - 12.7 fL 10.8 Cholesterol, Total (mg/dL) Date Value 06/18/2023 159 11/05/2022 148 HDL Cholesterol (mg/dL) Date Value 06/18/2023 48 11/05/2022 53 LDL Cholesterol (mg/dL) Date Value 06/18/2023 95 LDL (mg/dL) Date Value 11/05/2022 77 Triglyceride (mg/dL) Date Value 06/18/2023 82 11/05/2022 92 TSH (mIU/L) Date Value 06/18/2023 0.757 Vitamin D 25 Hydroxy (ng/mL) Date Value 06/18/2023 40.7 CrCl cannot be calculated (Patient's most recent lab result is older than the maximum 180 days allowed.). Hemoglobin A1C (%) Date Value 06/18/2023 5.5 FIB-4 Calculation: 0.29 at 06/18/2023 6:41 AM Calculated from: SGOT/AST: 12 U/L at 06/18/2023 6:41 AM SGPT/ALT: 15 U/L at 06/18/2023 6:41 AM Platelets: 319 k/uL at 06/18/2023 6:41 AM Age: 28 years Assessment/Plan: Laura Castellanos is a 29 year old yo with Class III obesity who presented today for follow up for supervised weight loss to treat and prevent related co-morbidities. 1. NIVIA on CPAP - ICD9: 327.23, ICD10: G47.33 (primary diagnosis) - no longer using CPAP as she feels NIVIA has resolved with weight loss - Whole food balanced protein low-carb nutrition 2. PCOS (polycystic ovarian syndrome) - ICD9: 256.4, ICD10: E28.2 - METFORMIN ER 500 MG 3. Class 3 severe obesity with serious comorbidity and body mass index (BMI) of 40.0 to 44.9 in adult, unspecified obesity type (HCC) - ICD9: 278.01, V85.41, ICD10: E66.01, Z68.41 Weight decreasing - METFORMIN ER 500 MG - 1 gm twice a day - Phentermine discontinued as she is seeing [facility] and has started IUI. - Continue Whole food balanced protein low-carb nutrition - Continue to increase physical activity and exercise with goal of 150-200 min/week Prescription instructions reviewed with patient as applicable. Potential red flag symptoms discussed with the patient. Reviewed appropriate action plan to take ifred flag symptoms occur. Patient agreeable to treatment plan. Follow up virtual visit 05/26/2023 Renetta Cabrera CNP Advanced Education from the [employer] I spent a total of 36 minutes on the date of the service which included preparing to see the patient, [id number] patient care, completing clinical documentation, obtaining and/or reviewing separately obtained history, performing a medically appropriate examination, counseling and educating the pat ient/family/caregiver, and ordering medications, tests, or procedures. documented in this encounterTri[facility] NoteHNO ID: [id number] Author: RENETTA CABRERA APRN.CNP Service: ? Author Type: Nurse Practitioner Type: Progress Notes Filed: 05/26/2024 18:46 Note Text: Virtual Visit: This is a virtual visit using [employer] Video Visit. It required patient-provider interaction for the medical decision making as documented below. I have communicated my name and active licensure. The patient?s identity and physical location were verified at the time of this visit. Either the patient or their legal resources representative has been informed of the risks and benefits of -- and alternatives to -- treatment through a remote evaluation and consents to proceed with the evaluation remotely. Some documentation from previous visit of 01/27/2024 was copied and pasted, documentation has been reviewed and edited as necessary for today's visit. Patient Summary: Laura is a 29 year old Female who presents for follow-up evaluation of obesity/weight management to treat NIVIA, PCOS and prevent related co-morbidities. In our previous visits we have discussed lifestyle intervention including a nutrition recommendations and physical activity optimization. Her last visit was 4 months ago. Assessment/plan from last visit: - Phentermine 37.5 mg in am - Metformin 500 MG for smaller size - 1 gm lunch and dinner Sleep medicine- auto CPAP nasal mask has not been using - does not feel she need it now IUI through [facility] Interval History PT specifies the following items as new or significant updates since the last appointment: Same weight since past 2.5 months. Decreased cravings Went to [facility] - IUI New home. Weight loss since last vist: 9 lbs for a total of 44 lbs Date: Weight: BMI: Medications: 05/26/2024 213 lb 33.86 phentermine DC - [facility] for IUI 01/27/2024 222 lb 35.29 stopped phentermine - see above, plans to restart 11/04/2023 226 lb 35.93 09/17/2023 246 lb 39.11 phentermine 37.5 mg 08/06/2023 251 lb 39.91 phentermine 15 mg 07/15/2023 253 lb 40.35 06/16/2023 257 lb 40.92 WC 45.25 in [place] 15 in Metformin 5% weight loss = 245 lbs, 10% weight loss = 232 lbs [place] body weight: 60.5 kg (133 lb 4.3 oz) Adjusted ideal body weight: 77.3 kg (170 lb 5.8 oz) Anti-obesity medications: Metformin. Benefit: decreased hunger and increased fullness Adverse effects: occasional diarrhea Phentermine Benefit: decreased hunger, increased fullness and decreased cravings Adverse effects: none Weight promoting medications: none Previous Diet (initial appointment): Awake - variable works 24 hrs on and 48 hrs off B - 30-60 min after wakening - chocolate milk at home, also had protein cookie S - 2-3 hrs later - breakfast sandwich at station L - leftovers from home or yogurt or almonds/raisins - Home: tomato soup and toast cheese S - handful almonds D - 4:30 or 6:30 usually unbreaded protein, veg - low-carb and most of the time rice/red potato/corn/pasta S - rarely ice cream Fluids - chocolate milk morning, water, Propel packs Bedtime - varies 5-8 hrs Dietary changes: Awake - 0630 2 days a week or between [id number] B - 0730 or as late as 10 - 30 gm protein shake with iced coffee 5-6 days or rare protein cereal/Fairlife milk S - rare L - 12-1pm leftovers or [employer] protein yogurt with lunch meat/cheese/dill pickle S - none D - 1630-6 pm usually protein, LC veg. Sometimes rice. Rare tapioca. Rare Fairlife chocolate milk with 1/2 protein shake S - rare Dove chocolate Current Barriers: none Exercise: stable made home gym - starting treadmill and weights, still working on house Stress: stable Sleep: stable- 8 hrs NIVIA Yes CPAP auto not using routinely because she does not feel like she needs it CrCl cannot be calculated (Patient's most recent lab result is older than the maximum 180 days allowed.). PAST MEDICAL HISTORY Diagnosis Date NIVIA on CPAP 2017 2023 - has not been using CPAP PCOS (polycystic ovarian syndrome) Pulmonary embolism (HCC) 2018 post leg surgery Current Outpatient Medications Medication Sig Dispense Refill metFORMIN (GLUCOPHAGE) 500 mg tablet Take 2 tablets by mouth two times a day with meals. 360 tablet 3 CPAP/BIPAP/OTHER Type .CPAPSettings into a note to see current settings/supplies/DME information. 1 Each 0 medroxyPROGESTERone (PROVERA) 10 mg tablet Take 1 tablet by mouth once daily. 10 days a month as needed to start menses 30 tablet 1 MULTIVITAMIN ORAL Take by mouth. No current facility-administered medications for this visit. 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 Results: recent labs reviewed with the patient. Latest Ref Rng AND Units 06/18/2023 CMP Sodium 136 - 144 mmol/L 139 Potassium 3.7 - 5.1 mmol/L 3.8 Chloride 97 - 105 mmol/ (more content not included)...[facility] 01-27-2024 History of Present illness Narrative* Renetta Cabrera APRN.SVETLANA - 01/27/2024 4:00 PM EDT Images from the original note were not included. Virtual Visit: This is a virtual visit using [employer] Zoom Video Visit. It required patient- provider interaction for the medical decision making as documented below. I have communicated my name and active licensure. The patient s identity and physical location wereverified at the time of this visit. Either the patient or their legal resources representative has been informed of the risks and benefits of -- and alternatives to -- treatment through a remote evaluation andconsents to proceed with the evaluation remotely. Some documentation from previous visit of 11/04/2023 was copied and pasted, documentation has been reviewed and edited as necessary for today's visit. Patient Summary: Laura is a 28 year old Female who presents for follow-up evaluation of obesity/weight management to treat NIVIA, PCOS and prevent related co-morbidities. In our previous visits we havediscussed lifestyle intervention including a nutrition recommendations and physical activity optimization. Her last visit was 3 months ago. Assessment/plan from last visit: Phentermine 37.5 mg in am - stopped 4 weeks ago due to nausea, unsure of cause but did have large ovarian cyst that may need drained if it does not shrink. Increase in appetite slightly. Metformin 500 MG - 1 gm lunch and dinner Sleep medicine- auto CPAP nasal mask using occasionally Femara - stopped for now Interval History PT specifies the following items as new or significant updates since the last appointment: Same weight since past 2.5 months. Decreased cravings Went to [facility] - AMH level low. Will try to get on 's insurance in open enrollment. Not preventing but needs to use cyclic Provera to have withdrawal menses. PCOS New home. Weight loss since last vist: 4 lbs for a total of 35 lbs Date: Weight: BMI: Medications: 01/27/2024 222 lb 35.29 stopped phentermine - see above, plans to restart 11/04/2023 226 lb 35.93 09/17/2023 246 lb 39.11 phentermine 37.5 mg 08/06/2023 251 lb 39.91 phentermine 15 mg 07/15/2023 253 lb 40.35 06/16/2023 257 lb 40.92 WC 45.25 in [place] 15 in Metformin 5% weight loss = 245 lbs, 10% weight loss = 232 lbs [place] body weight: 60.5 kg (133 lb 4.3 oz) Adjusted ideal body weight: 77.3 kg (170 lb 5.8 oz) Anti-obesity medications: Metformin. Benefit: decreased hunger and increased fullness Adverse effects: occasional diarrhea Phentermine Benefit: decreased hunger, increased fullness and decreased cravings Adverse effects: none Weight promoting medications: none Previous Diet (initial appointment): Awake - variable works 24 hrs on and 48 hrs off B - 30-60 min after wakening - chocolate milk at home, also had protein cookie S - 2-3 hrs later - breakfast sandwich at station L - leftovers from home or yogurt or almonds/raisins - Home: tomato soup and toast cheese S - handful almonds D - 4:30 or 6:30 usually unbreaded protein, veg - low-carb and most of the time rice/red potato/corn/pasta S - rarely ice cream Fluids - chocolate milk morning, water, Propel packs Bedtime - varies 5-8 hrs Dietary changes: Awake - 0630 2 days a week or between [id number] B - 0730 or as late as 10 - 30 gm protein shake with iced coffee 5-6 days or protein cereal/Fairlife milk or egg bites with eggs, cottage cheese, rose and shredded cheese S - none L - 12-1pm leftovers or Aldi protein yogurt with lunch meat/cheese/dill pickle S - none D - 1630-6 pm protein, LC veg, freezer slaw, corn bread Occasional Fairlife chocolate milk - equal protein and carbs S - none Current Barriers: none Exercise: increased new dog so going on walks but working on house daily and new job is active Stress: has been increased but calming down Sleep: stable- 8 hrs NIVIA Yes CPAP auto not using routinely CrCl cannot be calculated (Patient's most recent lab result is older than the maximum 180 days allowed.). PAST MEDICAL HISTORY Diagnosis Date NIVIA on CPAP 2017 2023 - has not been using CPAP PCOS (polycystic ovarian syndrome) Pulmonary embolism (HCC) 2018 post leg surgery Current Outpatient Medications Medication Sig Dispense Refill Phentermine HCl 37.5 mg capsule Take 1 capsule by mouth daily before breakfast for 90 days. 90 capsule 0 metFORMIN (GLUCOPHAGE) 500 mg tablet Take 2 tablets by mouth two times a day with meals. 360 tablet3 CPAP/BIPAP/OTHER Type .CPAPSettings into a note to see current settings/supplies/DME information. 1Each 0 medroxyPROGESTERone (PROVERA) 10 mg tablet Take 1 tablet by mouth once daily. 10 days a month as needed to start menses 30 tablet 1 MULTIVITAMIN ORAL Take by mouth. Lactobacillus acidophilus (PROBIOTIC ORAL) Take by mouth. No current facility-administered medications for this visit. 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 Latest Ref Rng & Units 06/18/2023 CMP Sodium 136 - 144 mmol/L 139 Potassium 3.7 - 5.1 mmol/L 3.8 Chloride 97 - 105 mmol/L 105 CO2 22 - 30 mmol/L 25 Glucose 74 - 99 mg/dL 94 BUN 7 - 21 mg/dL 15 Creatinine 0.58 - 0.96 mg/dL 0.81 EGFR >=60 mL/min/1.73m 100 Protein, Total 6.3 - 8.0 g/dL 7.5 Albumin 3.9 - 4.9 g/dL 4.2 Calcium 8.5 - 10.2 mg/dL 9.0 Bilirubin, Total 0.2 - 1.3 mg/dL 0.5 AST 13 - 35 U/L 12 ALT 7 - 38 U/L 15 Alkaline Phosphatase 34 - 123 U/L 60 Latest Ref Rng & Units 06/18/2023 CBC WBC 3.70 - 11.00 k/uL 7.28 RBC 3.90 - 5.20 m/uL 4.74 Hemoglobin 11.5 - 15.5 g/dL 13.0 Hematocrit 36.0 - 46.0 % 40.3 MCV 80.0 - 100.0 fL 85.0 MCH 26.0 - 34.0 pg 27.4 MCHC 30.5 - 36.0 g/dL 32.3 RDW-CV 11.5 - 15.0 % 12.7 Platelet Count 150 - 400 k/uL 319 MPV 9.0 - 12.7 fL 10.8 Cholesterol, Total (mg/dL) Date Value 06/18/2023 159 11/05/2022 148 HDL Cholesterol (mg/dL) Date Value 06/18/2023 48 11/05/2022 53 LDL Cholesterol (mg/dL) Date Value 06/18/2023 95 LDL (mg/dL) Date Value 11/05/2022 77 Triglyceride (mg/dL) Date Value 06/18/2023 82 11/05/2022 92 TSH (mIU/L) Date Value 06/18/2023 0.757 Vitamin D 25 Hydroxy (ng/mL) Date Value 06/18/2023 40.7 CrCl cannot be calculated (Patient's most recent lab result is older than the maximum 180 days allowed.). Hemoglobin A1C (%) Date Value 06/18/2023 5.5 FIB-4 Calculation: 0.29 at 06/18/2023 6:41 AM Calculated from: SGOT/AST: 12 U/L at 06/18/2023 6:41 AM SGPT/ALT: 15 U/L at 06/18/2023 6:41 AM Platelets: 319 k/uL at 06/18/2023 6:41 AM Age: 28 years Assessment/Plan: Laura Castellanos is a 28 year old yo with Class III obesity who presented today for follow up for supervised weight loss to treat and prevent related co-morbidities. 1. NIVIA on CPAP - ICD9: 327.23, ICD10: G47.33 (primary diagnosis) - auto CPAP nasal mask until more weight loss - Whole food balanced protein low-carb nutrition - PHENTERMINE 37.5 MG TAB 2. PCOS (polycystic ovarian syndrome) - ICD9: 256.4, ICD10: E28.2 - continue cyclic provera - METFORMIN 500 MG 3. Class 3 severe obesity with serious comorbidity and body mass index (BMI) of 40.0 to 44.9 in adult, unspecified obesity type (HCC) - ICD9: 278.01, V85.41, ICD10: E66.01, Z68.41 Weight decreasing - METFORMIN 500 MG - 1 gm twice a day, requests 500 mg tablets for smaller size - PHENTERMINE 37.5 MG TAB - restart. Lengthy discussion regarding risks/benefits of taking phentermine with no contraception. She has PCOS and take cyclic provera to induce withdrawal bleed with no history of . Discussed benefit of additional weight loss prior to infertility treatment and that phentermine should be discontinued at beginning of treatment or anytime she wishes. Patient has met the weight loss requirement of 5% TBW in initial 3 months using phentermine withoutany adverse side effects. Pt has responded well and would like to continue use for weight management. She understands that continued use is off label for penitentiary management of weight control. The patient is currently enrolled in a diet and exercise program The patient has no known history of contraindications The patient is free from drug or ETHO abuse The patient is not or and is aware not to become while using this medication OARS was reviewed. PDMP website checked and validated. All prescriptions have been APPROPRIATELY filled. No suspicious activity was identified. - Continue Whole food balanced protein low-carb nutrition - Continue to increase physical activity and exercise with goal of 150-200 min/week Prescription instructions reviewed with patient as applicable. Potential red flag symptoms discussed with the patient. Reviewed appropriate action plan to take ifred flag symptoms occur. Patient agreeable to treatment plan. Follow up virtual visit 05/26/2023 Renetta Cabrera CNP Advanced Education from the [employer]esity [employer] Association Medical Decision Making: Problems: Moderate: 2+ stable chronic illnesses and 1+ chronic illnesses with change Risk: Moderate: Drug management and Moderate risk from testing/treatment Medical Decision Making Level: 4 - Moderate documented in this encounterTri[facility]07-24-[facility]24 Instructions* Patient Instructions* Renetta Cabrera APRN.CNP - 11/04/2023 10:12 AM EDT When thinking about weight-loss, one often has an ideal body weight in mind or an ultimate weight-loss goal. It s very common for people to think that unless they lose dozens of pounds, they will notbe any healthier. This is a misconception. Studies have shown that health benefits resulting from weight-loss are evident with a weight reduction as low as 5-10 percent. This means that an individual that weighs 200 pounds will benefit greatly from losing 10 to 20 pounds. A 5-10 percent weight-loss can result in: A five point increase in HDL cholesterol. Decrease triglycerides by an average of 40 mg/dl Decrease in blood pressure, both systolic and diastolic, by 5 mmHg on average. Decrease HgB A1C by half a point on average Significant decrease in insulin levels May improve sleep apnea and sometimes if the apnea was not very severe, one can be weaned from the CPAP breathing machine Decrease in levels of inflammatory substances circulating in the blood drop significantly and therefore the risk of vascular damage is reduced as well documented in this encounterTri[facility]07-24-2024 History of Present illness Narrative* Renetta Cabrera APRN.SVETLANA - 11/04/2023 10:00 AM EDT Images from the original note were not included. Virtual Visit: This is a virtual visit using [employer] Zoom Video Visit. It required patient- provider interaction for the medical decision making as documented below. I have communicated my name and active licensure. The patient s identity and physical location wereverified at the time of this visit. Either the patient or their legal resources representative has been informed of the risks and benefits of -- and alternatives to -- treatment through a remote evaluation andconsents to proceed with the evaluation remotely. Some documentation from previous visit of 09/17/2023 was copied and pasted, documentation has been reviewed and edited as necessary for today's visit. Patient Summary: Laura is a 28 year old Female who presents for follow-up evaluation of obesity/weight management to treat NIVIA, PCOS and prevent related co-morbidities. In our previous visits we havediscussed lifestyle intervention including a nutrition recommendations and physical activity optimization. Her last office visit was 1.5 months ago. 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 Previous home had mold. Started CPAP 6 weeks ago Decreased cravings Feeling much better about self Weight loss since last vist: 5 lbs for a total of 11lbs 11/04/23 226 lb BMI 35.93 09/17/23 246 lb BMI 39.11 phentermine 37.5 mg 08/06/23 251lb BMI 39.91 phentermine 15 mg 07/15/23 253 lb BMI 40.35 06/16/23 257 lb 12.8 oz (116.9 kg) BMI 40.92 WC 45.25 in [place] 15 in Metformin 5% weight loss = 245 lbs, 10% weight loss = 232 lbs [place] body weight: 60.5 kg (133 lb 4.3 oz) Adjusted ideal body weight: 77.3 kg (170 lb 5.8 oz) Anti-obesity medications: Metformin. Benefit: decreased hunger and increased fullness Adverse effects: occasional diarrhea Phentermine Benefit: decreased hunger, increased fullness and decreased cravings Adverse effects: none Weight promoting medications: none Previous Diet (initial appointment): Awake - variable works 24 hrs on and 48 hrs off B - 30-60 min after wakening - chocolate milk at home, also had protein cookie S - 2-3 hrs later - breakfast sandwich at station L - leftovers from home or yogurt or almonds/raisins - Home: tomato soup and toast cheese S - handful almonds D - 4:30 or 6:30 usually unbreaded protein, veg - low-carb and most of the time rice/red potato/corn/pasta S - rarely ice cream Fluids - chocolate milk morning, water, Propel packs Bedtime - varies 5-8 hrs Dietary changes: Awake - 0630 B - 0730 - 30 gm protein shake with iced coffee S - none L - 12-1pm Aldi yogurt with lunch meat/cheese and sometimes 1/2 Keto sandwich thin(6 gm protein & 2 carb)with lunch meat/cheese S - none D - 6 pm protein, veg - low-carb. Occasional Fairlife chocolate milk - equal protein and carbs S - Rare - ice cream Current Barriers: none Exercise: increased No regular exercise but working on house daily and new job is active Stress: stable Sleep: increased - 8 hrs NIVIA Yes CPAP auto sleeping much better Estimated Creatinine Clearance: 129.7 mL/min (based on SCr of 0.81 mg/dL). PAST MEDICAL HISTORY Diagnosis Date NIVIA on CPAP 2017 2023 - has not been using CPAP PCOS (polycystic ovarian syndrome) Pulmonary embolism (HCC) 2018 post leg surgery Current Outpatient Medications Medication Sig Dispense Refill metFORMIN (GLUCOPHAGE) 500 mg tablet Take 2 tablets by mouth two times a day with meals. 360 tablet3 CPAP/BIPAP/OTHER Type .CPAPSettings into a note to see current settings/supplies/DME information. 1Each 0 medroxyPROGESTERone (PROVERA) 10 mg tablet Take 1 tablet by mouth once daily. 10 days a month as needed to start menses 30 tablet 1 MULTIVITAMIN ORAL Take by mouth. inulin (PREBIOTIC FIBER ORAL) Take by mouth. Lactobacillus acidophilus (PROBIOTIC ORAL) Take by mouth. No current facility-administered medications for this visit. 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 Latest Ref Rng & Units 06/18/2023 CMP Sodium 136 - 144 mmol/L 139 Potassium 3.7 - 5.1 mmol/L 3.8 Chloride 97 - 105 mmol/L 105 CO2 22 - 30 mmol/L 25 Glucose 74 - 99 mg/dL 94 BUN 7 - 21 mg/dL 15 Creatinine 0.58 - 0.96 mg/dL 0.81 EGFR >=60 mL/min/1.73m 100 Protein, Total 6.3 - 8.0 g/dL 7.5 Albumin 3.9 - 4.9 g/dL 4.2 Calcium 8.5 - 10.2 mg/dL 9.0 Bilirubin, Total 0.2 - 1.3 mg/dL 0.5 AST 13 - 35 U/L 12 ALT 7 - 38 U/L 15 Alkaline Phosphatase 34 - 123 U/L 60 Latest Ref Rng & Units 06/18/2023 CBC WBC 3.70 - 11.00 k/uL 7.28 RBC 3.90 - 5.20 m/uL 4.74 Hemoglobin 11.5 - 15.5 g/dL 13.0 Hematocrit 36.0 - 46.0 % 40.3 MCV 80.0 - 100.0 fL 85.0 MCH 26.0 - 34.0 pg 27.4 MCHC 30.5 - 36.0 g/dL 32.3 RDW-CV 11.5 - 15.0 % 12.7 Platelet Count 150 - 400 k/uL 319 MPV 9.0 - 12.7 fL 10.8 Cholesterol, Total (mg/dL) Date Value 06/18/2023 159 11/05/2022 148 HDL Cholesterol (mg/dL) Date Value 06/18/2023 48 11/05/2022 53 LDL Cholesterol (mg/dL) Date Value 06/18/2023 95 LDL (mg/dL) Date Value 11/05/2022 77 Triglyceride (mg/dL) Date Value 06/18/2023 82 11/05/2022 92 TSH (mIU/L) Date Value 06/18/2023 0.757 Vitamin D 25 Hydroxy (ng/mL) Date Value 06/18/2023 40.7 ] Estimated Creatinine Clearance: 129.7 mL/min (based on SCr of 0.81 mg/dL). Hemoglobin A1C (%) Date Value 06/18/2023 5.5 FIB-4 Calculation: 0.29 at 06/18/2023 6:41 AM Calculated from: SGOT/AST: 12 U/L at 06/18/2023 6:41 AM SGPT/ALT: 15 U/L at 06/18/2023 6:41 AM Platelets: 319 k/uL at 06/18/2023 6:41 AM Age: 28 years Assessment/Plan: Laura Castellanos is a 28 year old yo with Class III obesity who presented today for follow up for supervised weight loss to treat and prevent related co-morbidities. 1. NIVIA on CPAP - ICD9: 327.23, ICD10: G47.33 (primary diagnosis) - auto CPAP nasal mask until more weight loss - benefits of weight loss - Whole food balanced protein low-carb nutrition - PHENTERMINE 37.5 MG TAB 2. PCOS (polycystic ovarian syndrome) - ICD9: 256.4, ICD10: E28.2 - continue cyclic provera - has discontinued letrozole temporarily - METFORMIN 500 MG 3. Class 3 severe obesity with serious comorbidity and body mass index (BMI) of 40.0 to 44.9 in adult, unspecified obesity type (HCC) - ICD9: 278.01, V85.41, ICD10: E66.01, Z68.41 Weight decreasing Plan: - METFORMIN 500 MG - 1 gm twice a day, requests 500 mg tablets for smaller size - PHENTERMINE 37.5 MG TAB Patient has met the weight loss requirement of 5% TBW in initial 3 months using phentermine withoutany adverse side effects. Pt has responded well and would like to continue use for weight management. 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 The patient is currently enrolled in a diet and exercise program The patient has no known history of contraindications The patient is free from drug or ETHO abuse The patient is not or and is aware not to become while using this medication OARS was reviewed. PDMP website checked and validated. All prescriptions have been APPROPRIATELY filled. No suspicious activity was identified. - Continue Whole food balanced protein low-carb nutrition - Continue to increase physical activity and exercise with goal of 150-200 min/week Prescription instructions reviewed with patient as applicable. Potential red flag symptoms discussed with the patient. Reviewed appropriate action plan to take ifred flag symptoms occur. Patient agreeable to treatment plan. Will notify of results. Follow up in 12 weeks virtual visit Renetta Cabrera CNP Advanced Education from the [employer] Medical Decision Making: Problems: Moderate: 1+ chronic illnesses with change and 2+ stable chronic illnesses Risk: Moderate: Drug management and Moderate risk from testing/treatment Medical Decision Making Level: 4 - Moderate documented in this encounterTri[facility] Telephone encounter Note * Telephone Encounter - Marcelle Mehta LPN - 09/22/2023 5:40 PM EDT Sleep Study received, no further action. Marcelle Mehta LPN [facility]06-[facility] Miscellaneous Notes* Telephone Encounter - Marcelle Mehta LPN - 09/22/2023 5:40 PM EDT Sleep Study received, no further action. Marcelle Mehta LPN * Telephone Encounter - Marcelle Mehta LPN - 09/14/2023 8:09 AM EDT Phone call placed to [facility] [phone] spoke to Nataly abrams study for review. Marcelle Mehta LPN documented in this encounterTrihealth [facility]06-06-2024 Instructions* Patient Instructions* Renetta Cabrera APRN.MORTGAGE COUNSELOR - 09/17/2023 2:22 PM EDT Weight Management: You have taken the initiative to become a healthier version of yourself and to decrease the risks that come with the diagnosis of obesity or being overweight. We are happy to help you along this journey but know this is a lifetime commitment to yourself. Losing just 3-10 % of your body weight can decrease your risks of many other serious diseases like diabetes, heart disease, osteoarthritis, hypertension, cancer and so many others. During this time you will have triumphs, setbacks and plateaus-your body will fight against you but we are here to give you the tools and the resources to continue to reach your goals. We recommend during this time that you track your weight daily or at least five times per week as well as tracking your nutrition. You may track your activity but do not use hitting your fitness goals as a reward system as this can derail your success. We recommend weekly physical activity of 150-200 min/week-although physical exercise, this will be especially important for weight maintenance. Exe rcise can have many other benefits including improving insulin resistance, improving balance, bone health, improving mental health and cardiovascular health. Do not feel overwhelmed - we will discussthis more at your visits. Our time will be limited with each visit but we will try to touch on factors that are important to you and to your overall goals. We will try to set a goal at the end of each visit and then decide onwhat we want to accomplish with your upcoming visits. On your After Visit Summary (AVS), we will provide you with information that may be useful during this journey so please remember to read the information given. Check your AVS a few days after your appointment because we may have added more information specifically for you. Remember that if you are placed on medications, they are tools that can help you succeed but you must put in the work. Your nutrition will be the main factor. There are medications that work well forsome and not for others- so it may take time to find the right combination for your body's needs. Please remember that factors such as other health co-morbidities one might have, as well as insurance coverage, will play a factor in determining which medications you can take. Most of the newer medications that are all the craze ,injectables, may not be covered or will only be covered if you fail months of oral medications or have Type 2 diabetes so please be patient with the process. It would be beneficial for you to determine what your insurance covers as far as Anti-Obesity Medications (AOMs), Nutritional Counseling, behavioral intervention and weight loss surgery. Please call your health insurance prior to your first appointment and write down coverage for each of those therapies. Most importantly, remember that ultimately our goal is to help you get to a healthier weight which will decrease your overall health risks. We will work together as a team and try to reach your personalized goals as well. Follow-up appointments Please arrive to follow-up visits a minimum of 15 minutes prior to your appointment. Follow-up weight management visits can be virtual. You will need to report a current blood pressure, heart rate (pulse) and weight at the beginning of each virtual appointment so you will need to have a reliable BP cuff, either wrist or upper arm. If you need to reschedule your appointment time or switch from an in-office visit to a virtual visit or vice versa, you need to call our office as we have designated appointment slots. This should not be done on [facility] as you will not be scheduled appropriately and will need to be rescheduled. We appreciate that you have entrusted us with your health and know that we are committed to this process with you. Sincerely, Citlaly Rutherford MD, BROOK[place]NN, CRYSTAL & Renetta Cabrera CNP Advanced Education from the Obesity Medicine Association Protein - no carbs Egg 1 large - 6g Egg white 1 large 3.6g 3 oz is approximately the size of a deck of cards and equals 21 g protein so 4 oz is 28 gm protein Beef, Chicken, [place], Pork, Tang 1 oz 7g Fish, Tuna Fish 1 oz 7g (Starkist tuna packet 2.6 oz 17 gm protein) Seafood (Crabmeat, Shrimp, Lobster) 1 oz 6g Protein shakes (read labels) Premier Protein or generic [employer] Equate, [employer] High Performance- 30g protein & 1g carb - meal replacement Premier Protein powder or generic- 30 gm protein, 1g carb Premier Protein plant protein powder - 25 gm protein, 0 suger/2 carb Vanilla and chocolate (not a meal replacement) Fairlife 30 gram protein - 30g protein & 3g carb BOOST Glucose Control Max 30g Protein Nutritional Drink - 30g protein & 1 carb - meal replacement Slimfast High Protein - 20g protein & 1g carb Ensure Max Protein Nutrition Shake 30g protein & 2 carb Protein AND carbs Beef/[place] Jerky 1 oz dried 10-15g protein - check carb count, can be high if sugar added Slim Ghulam - 6 gm protein and 4 net carb Great Value original turkey sausage sticks - 7 gm protein and 2 gm carb Sandra & Charanjit (at [employer]) Original smoked sausage sticks - 8 gm protein and 0 carb Imitation Crab Meat 1 oz - 2g protein & 4g carb Milk, skim 2% or 1% 8 oz - 8g protein & 12g carb [place] yogurt Full Fat [place] Yogurt 1 cup - 20.4g protein & 9.1g carb 2% [place] Yogurt 1 cup - 22.7g protein & 9.1g carb 0% (fat-free) [place] Yogurt - 1 cup 24g protein & 9.3g carb Aldi Protein Citizen [place] yogurt single svg - 15g protein & 7g carb Chobani Zero Sugar single svg: - 11g protein & 5g carb Dannon Light + Fit 1 single svg - 12g protein & 9g carb Oikos Pro single svg - 20g protein & 8g carb Oikos Triple Zero [place] Nonfat Yogurt 1 single svg - 15g protein & 7g carb :ratio, KETO Friendly Dairy Snack 1 single svg - 15g protein & 2g carb :ratio Protein 1 single svg - 25g protein & 8g carb Two Good Lowfat [place] Yogurt, [place], Lower Sugar - 12g protein & 2g carb Yoplait Protein 1 single svg 15gm protein & 5gm carb Cheese each oz Brie 5.9g protein & 0.1g carb Cheddar Cheese 7g protein & 0.4g carb Mozzarella Cheese 6.3g protein & 0.6g carb Piotr Cheese 6.7g protein & 0.7g carb Parmesan Cheese 10g protein & 0.9g carb Cream Cheese 1.7g protein & 1.2g carb Feta 4g protein & 1.2g carb Trin[place] Cheese 7.6g protein & 1.5g carb Galo s Low Fat Cottage Cheese 1/2cup 12g protein & 4g carb Legumes Lentils cup 9g protein & 20g carb Mak beans cup 7g protein & 20g carb Kidney, Black, [place], Cannellini beans cup 8g protein & 20g carb Soybeans 1/2 c 14g complete protein & 8.5g carb [place] milk, unsweetened 8 oz 1g protein & 2g carb Soy milk 8 oz 3.5g protein & 1.6g carb Tofu 1/2 cup 10g protein & 2.3g carb Peanut butter, natural 2 Tbsp 7-8g protein & 4g net carbs, 190 calories PB2 powder 2 Tbsp 6g protein & 5g carb Nuts and Seeds per oz Almonds - 5.9g protein & 6.1g carb [place] Nuts - 4.0g protein & 3.4g carb Cashews - 5.1g protein & 9.2g carb Hazelnuts - 4.2g protein & 4.7g carb Hemp seeds 3 T/30 gms - 9.5 gm complete protein and 2.5 gm carb Peanuts - 7g protein & 4.6g carb Pecans - 2.6g protein & 3.9g carb Pistachios - 5.8g protein & 7.8g carb Pumpkin Seeds - 6.9g protein & 5g carb [place] Seeds - 5.8g protein & 5.6g carb Walnuts - 4.3g protein & 3.8g carb documented in this encounterTri[facility]06-06-[facility]24 History of Present illness Narrative* Renetta Cabrera APRN.SVETLANA - 09/17/2023 2:00 PM EDT Images from the original note were not included. Some documentation from previous visit of 08/06/2023 was copied and pasted, documentation has been reviewed and edited as necessary for today's visit. Patient Summary: Laura is a 28 year old Female who presents for follow-up evaluation of obesity/weight management to treat NIVIA, PCOS and prevent related co-morbidities. In our previous visits we havediscussed lifestyle intervention including a nutrition recommendations and physical activity optimization. Her last office visit was 1 month ago. 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 Benefit: decreased hunger and increased fullness Adverse effects: occasional diarrhea Phentermine Benefit: decreased hunger, increased fullness and decreased cravings Adverse effects: none Weight promoting medications: none Previous Diet (initial appointment): Awake - variable works 24 hrs on and 48 hrs off B - 30-60 min after wakening - chocolate milk at home, also had protein cookie S - 2-3 hrs later - breakfast sandwich at station L - leftovers from home or yogurt or almonds/raisins - Home: tomato soup and toast cheese S - handful almonds D - 4:30 or 6:30 usually unbreaded protein, veg - low-carb and most of the time rice/red potato/corn/pasta S - rarely ice cream Fluids - chocolate milk morning, water, Propel packs Bedtime - varies 5-8 hrs Dietary changes: Awake - B - 0800 - 30 gm protein shake S - none L - 12-1pm 1/2 Keto sandwich thin(6 gm protein & 2 carb)with lunch meat/cheese and mustard and Aldi yogurt and sometimes berries S - none D - 4:30 or 6:30 protein, veg - low-carb and most of the time sweet potato and black beans S - Rare - ice cream Current Barriers: excessive hunger/lack of satiety signals Exercise: stable No regular exercise but working on house Stress: stable Sleep: increased - 8 hrs NIVIA Yes 2018; CPAP auto Estimated Creatinine Clearance: 130.5 mL/min (based on SCr of 0.81 mg/dL). PAST MEDICAL HISTORY Diagnosis Date NIVIA on CPAP 2017 2023 - has not been using CPAP PCOS (polycystic ovarian syndrome) Pulmonary embolism (HCC) 2018 post leg surgery Current Outpatient Medications Medication Sig Dispense Refill CPAP/BIPAP/OTHER Type .CPAPSettings into a note to see current settings/supplies/DME information. 1Each 0 metFORMIN (GLUCOPHAGE) 500 mg tablet Take 2 tablets by mouth two times a day with meals. 180 tablet0 Phentermine HCl 15 mg capsule Take 1 capsule by mouth daily before breakfast for 45 days. 45 capsule 0 medroxyPROGESTERone (PROVERA) 10 mg tablet Take 1 tablet by mouth once daily. 10 days a month as needed to start menses 30 tablet 1 MULTIVITAMIN ORAL Take by mouth. inulin (PREBIOTIC FIBER ORAL) Take by mouth. Lactobacillus acidophilus (PROBIOTIC ORAL) Take by mouth. No current facility-administered medications for this visit. 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 Latest Ref Rng & Units 06/18/2023 CMP Sodium 136 - 144 mmol/L 139 Potassium 3.7 - 5.1 mmol/L 3.8 Chloride 97 - 105 mmol/L 105 CO2 22 - 30 mmol/L 25 Glucose 74 - 99 mg/dL 94 BUN 7 - 21 mg/dL 15 Creatinine 0.58 - 0.96 mg/dL 0.81 EGFR >=60 mL/min/1.73m 100 Protein, Total 6.3 - 8.0 g/dL 7.5 Albumin 3.9 - 4.9 g/dL 4.2 Calcium 8.5 - 10.2 mg/dL 9.0 Bilirubin, Total 0.2 - 1.3 mg/dL 0.5 AST 13 - 35 U/L 12 ALT 7 - 38 U/L 15 Alkaline Phosphatase 34 - 123 U/L 60 Latest Ref Rng & Units 06/18/2023 CBC WBC 3.70 - 11.00 k/uL 7.28 RBC 3.90 - 5.20 m/uL 4.74 Hemoglobin 11.5 - 15.5 g/dL 13.0 Hematocrit 36.0 - 46.0 % 40.3 MCV 80.0 - 100.0 fL 85.0 MCH 26.0 - 34.0 pg 27.4 MCHC 30.5 - 36.0 g/dL 32.3 RDW-CV 11.5 - 15.0 % 12.7 Platelet Count 150 - 400 k/uL 319 MPV 9.0 - 12.7 fL 10.8 Cholesterol, Total (mg/dL) Date Value 06/18/2023 159 11/05/2022 148 HDL Cholesterol (mg/dL) Date Value 06/18/2023 48 11/05/2022 53 LDL Cholesterol (mg/dL) Date Value 06/18/2023 95 LDL (mg/dL) Date Value 11/05/2022 77 Triglyceride (mg/dL) Date Value 06/18/2023 82 11/05/2022 92 TSH (mIU/L) Date Value 06/18/2023 0.757 Vitamin D 25 Hydroxy (ng/mL) Date Value 06/18/2023 40.7 ] Estimated Creatinine Clearance: 130.5 mL/min (based on SCr of 0.81 mg/dL). Hemoglobin A1C (%) Date Value 06/18/2023 5.5 FIB-4 Calculation: 0.29 at 06/18/2023 6:41 AM Calculated from: SGOT/AST: 12 U/L at 06/18/2023 6:41 AM SGPT/ALT: 15 U/L at 06/18/2023 6:41 AM Platelets: 319 k/uL at 06/18/2023 6:41 AM Age: 28 years Assessment/Plan: Laura Castellanos is a 28 year old yo with Class III obesity who presented today for follow up for supervised weight loss to treat and prevent related co-morbidities. 1. NIVIA on CPAP - ICD9: 327.23, ICD10: G47.33 (primary diagnosis) - auto CPAP nasal mask until more weight loss - benefits of weight loss - Whole food balanced protein low-carb nutrition - PHENTERMINE 37.5 MG TAB 2. PCOS (polycystic ovarian syndrome) - ICD9: 256.4, ICD10: E28.2 - continue cyclic provera - has discontinued letrozole temporarily - METFORMIN 500 MG 3. Class 3 severe obesity with serious comorbidity and body mass index (BMI) of 40.0 to 44.9 in adult, unspecified obesity type (HCC) - ICD9: 278.01, V85.41, ICD10: E66.01, Z68.41 Weight decreasing Plan: - METFORMIN 500 MG - 1 gm twice a day, requests 500 mg tablets for smaller size - - PHENTERMINE 37.5 MG TAB The patient is currently enrolled in a diet and exercise program The patient has no known history of contraindications The patient is free from drug or ETHO abuse The patient is not or and is aware not to become while using this medication [place]ARS was reviewed. PDMP website checked and validated. All prescriptions have been APPROPRIATELY filled. No suspicious activity was identified. - Continue Whole food balanced protein low-carb nutrition - Continue to increase physical activity and exercise with goal of 150-200 min/week Prescription instructions reviewed with patient as applicable. Potential red flag symptoms discussed with the patient. Reviewed appropriate action plan to take ifred flag symptoms occur. Patient agreeable to treatment plan. 4. UTI symptoms - ICD9: 788.99, ICD10: R39.9 PROBLEM: 2 recent UTI's treated with Bactrim. Recurrence of UTI symptoms x 1 week - URINALYSIS, WITH MICROSCOPIC - URINE CULTURE - Cystex supplement, increase fluid intake, avoid bladder irritants. Will notify of results. Follow up in 6 weeks Renetta Cabrera CNP Advanced Education from the Obesity Medicine Association Medical Decision Making: Problems: Low: Acute, uncomplicated illness or injury Moderate: 1+ chronic illnesses with change and 2+ stable chronic illnesses Data: Unique test(s) ordered: 2 Risk: Moderate: Drug management and Moderate risk from testing/treatment Medical Decision Making Level: 4 - Moderate documented in this encounterTri[facility]06-[facility] History of Present illness Narrative* Yasmin Pham APRN.CNP - 09/14/2023 9:00 AM EDT Images from the original note were not included. [facility] New Patient Evaluation PATIENT NAME: Laura Castellanos DATE OF SERVICE: September 11, 2023 CONSULTING PROVIDER: Renetta [address] [facility] [address] REASON FOR CONSULT: Renetta Cabrera sends the patient for an opinion about NIVIA. My findings and recommendations will be transmitted electronically via shared medical record to the consulting provider. HPI: Laura Castellanos is a 28 year old female. Sleep-related history: mild NIVIA Not using her PAP, got it in 2018, used it for 2-3 yrs, lost wt so she didn't need it any longer, but has gained the weight back. No issues with using PAP, just somewhat annoying to use it. Nasal mask. Had an HSAT. LUZ Salazar. SLEEP-WAKE SCHEDULE Bedtime: 9-1030 PM. She does not have a hard time falling asleep. Wake time: 7-8 AM, with an alarm. After falling asleep: she does not usually wake up during the night. But maybe once a week she awakes at 2 am and can't fall back asleep. On weekends, she sleeps until 9 AM Average total sleep time (in a 24 hour period): 7-9 hours. SLEEP-RELATED DETAILS Preferred sleep position: side or back Breathing disturbances and other behaviors during sleep: occas snoring. Bruxism: No GERD or aspiration: No Waking up with heart pounding or racing: No Anxiety or rumination: Yes She does not report having an urge to move the legs in the evening (when resting) that is accompanied or caused by uncomfortable and/or unpleasant sensations in the legs. She has not been told that she has leg kicking during sleep. She denies any history of parasomnias. Daytime sleepiness is not a problem. She does not report sleep paralysis or sleep-related hallucinations or cataplexy WAKE-RELATED DETAILS She works but is not a shift worker. 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 She does not have difficulty with memory or concentration. She denies falling asleep or dozing off when driving. She does not take naps. She does not drink caffeinated beverages. She has lost 10 pounds since 2 mos. Patient Questionnaires Sleep Scores PAST TREATMENTS: AutoPAP PRIOR SLEEP STUDIES: A Home Sleep Test (HST) performed on 11/2017 revealed an AHI of 5.1 PAST MEDICAL HISTORY Diagnosis Date NIVIA on CPAP 2017 2023 - has not been using CPAP PCOS (polycystic ovarian syndrome) Pulmonary embolism (HCC) 2018 post leg surgery PAST SURGICAL HISTORY Procedure Laterality Date APPENDECTOMY HX D&C, DIAG AND/OR THERAPEUTIC 02/2020 KNEE SURGERY HX 2019 LEG SURGERY HX ACTIVE PROBLEM LIST Nivia (Obstructive Sleep Apnea) Pcos (Polycystic Ovarian Syndrome) Circadian Rhythm Sleep Disorder, Shift Work Type Obesity, Class II, Bmi 35-39.9 Allergies As of Date: 09/14/2023 Allergen Noted Reaction CHLORHEXIDINE 05/24/2023 Itching Fully Assessed 09/14/2023 CURRENT MEDICATIONS: metFORMIN (GLUCOPHAGE) 500 mg tablet Take 2 tablets by mouth two times a day with meals. Phentermine HCl 15 mg capsule Take 1 capsule by mouth daily before breakfast for 45 days. medroxyPROGESTERone (PROVERA) 10 mg tablet Take 1 tablet by mouth once daily. 10 days a month as needed to start menses MULTIVITAMIN ORAL Take by mouth. inulin (PREBIOTIC FIBER ORAL) Take by mouth. Lactobacillus acidophilus (PROBIOTIC ORAL) Take by mouth. CPAP/BIPAP/OTHER Type .CPAPSettings into a note to see current settings/supplies/DME information. Review of Systems Constitutional: Negative for recent unintentional weight change. Cardiovascular: Negative for palpitations. Gastrointestinal: Negative for heartburn. Genitourinary: Negative for nocturia. Neurological: Positive for headaches (including morning headaches). SOCIAL HISTORY: Social History Tobacco Use Smoking status: Never Smokeless tobacco: Never Vaping Use Vaping Use: Never used Substance Use Topics Alcohol use: Yes Comment: rarely Drug use: Never FAMILY HISTORY: FAMILY HISTORY Problem Relation Age of Onset Diabetes Mother Obesity Mother Obesity Father Obesity Sister Obesity Sister Obesity Sister Obesity Maternal Grandmother There is a family history of: Sleep apnea. Relative: father PHYSICAL EXAMINATION: Vital Signs: BP 147/82 Pulse 70 Resp 18 Wt 112.8 kg (248 lb 9.6 oz) LMP 07/21/2023 (Approximate) SpO2 98% BMI 39.52 kg/m PHYSICAL EXAM: General appearance: pleasant, NAD Mental status: alert and oriented, able to provide own history Constitutional: obese Skin: No visible rashes on exposed skin Neuro: No focal deficits observed, no tremors ENT : Posterior airspace: Dooley tongue position 2, retrognathia absent. Overbite absent. High arched palate present. Tongue scalloping/ridging absent. Uvula: midline IMPRESSION/PLAN: G47.33 NIVIA (obstructive sleep apnea) (primary encounter diagnosis) G47.00 Insomnia, unspecified type E66.9 Obesity, Class II, BMI 35-39.9 Laura Castellanos is a 28 year old female with PMH of mild NIVIA (AHI 5.1), previous autoCPAP use, occasional sleep maintenance insomnia, obesity, PCOS. She no longer does shift work. We discussed NIVIA, benefit to using PAP therapy to help with weight loss. - Will resume Auto CPAP 4-20 cmH2O with a Nasal mask. I think she only needs to use it until she loses some weight, when no longer snoring like before, since her apnea is so mild. - I will have a prescription sent to a DME (durable medical equipment) company - [employer] who will becalling you in the next 1-2 weeks or so. Please call them directly or us if you do not hear from them in this time frame. - You should be eligible for new supplies approximately every 3-6 months, depending on your insurance coverage. - If your mask doesn't fit well, call the DME company before 30 days are up to get a new mask without an additional charge. - Insurance requires regular usage and periodic office follow ups for PAP therapy, to continue to cover supplies. Yasmin Pham APRN.SVETLANA documented in this encounterTrihealth [facility]06-[facility]24 Telephone encounter Note * Telephone Encounter - Marcelle Mehta LPN - 09/14/2023 8:09 AM EDT Phone call placed to [facility] [phone] spoke to Nataly [facility]omez [facility] review. Marcelle Mehta LPN [facility]04-25-[facility]24 Instructions* Patient Instructions* Renetta Cabrera APRN.SVETLANA - 08/06/2023 2:45 PM EDT Images from the original note were not included. PHENTERMINE -- Please take tablet or capsule as directed. May need to decrease dose or stop if uncontrolled BP or sustained elevated pulse. -- Please monitor your blood pressure (either purchase BP cuff, or go to pharmacy to check your BP at a local pharmacy). Please avoid any stimulants (in the form of caffeinated beverages like coffee,tea, sports drinks) and caution with decongestants. We will require an updated blood pressure and heart rate at follow up visits (this includes virtual visits). -- Please monitor for , if at any point you become please stop the medication. THIS IS A SUMMARY OF OUR DISCUSSION ABOUT THIS MEDICATION. PLEASE READ IT IS IMPORTANT FOR YOUR WEIGHT LOSS PLAN Per updated [place] state rules, initially, a one month supply of phentermine is prescribed. You will need to be seen every month for the first 3 months for follow-up and to assess effectiveness with a total 5% weight loss in that 3 month period. If the phentermine is effective for you, treatment with phentermine can continue with a one month supply of phentermine prescribed at a time with 2 refills. You, the patient, are responsible for making an appointment to see a provider within 12 weeks in order to get a refill of this medication. It is imperative that you get this (and future) phentermine prescriptions within 7 days as pharmacists will NOT refill prescriptions outside this 7 day window per State law. Phentermine can only be prescribed for a 3 month interval at a time. You are aware of the following statements per the [facility] pharmacy board rules. 1. Timely refills are required 2. Every 12 weeks office visits are required. 3. ALL prescriptions need to be filled within 7 days of the written prescription 4. Refills need to be done EVEN IF there is medication still available ? Phentermine (fen ter meen) What are the common names? Adipex-P, Ionamin Why is this medication prescribed? Phentermine was approved by the FDA in 1958 for short term weight loss. It works by decreasing appetite. Phentermine is absorbed by the body and travels to the appetite center of the brain. It works by helping you feel less hungry, less driven to eat, more satisfied with less food. I ve heard about fen-phen. Will phentermine affect my heart? The two drug combination fenfluramine/phentermine, usually called fen-phen, became popular in the early as a diet pill. However, it was withdrawn by the FDA in late 1996 after studies which showed that fenfluramine can cause fatal pulmonary hypertension and heart valve problems. Phentermine is not a combination medication and does not contain the compound fenfluramine. What special precautions should I follow? Before having phentermine prescribed, tell your doctor and pharmacist: If you have allergies to any component of phentermine If you are , plan to become , are breast-feeding, or if you become while taking phentermine What are the absolute contraindications? Stroke or Transient Ischemic Attacks Cardiac arrhythmias or Atrial fibrillation Coronary artery disease Seizure Disorder Uncontrolled blood pressure Angina Congestive Heart Failure Valvular Heart Disease or primary pulmonary hypertension Drug interactions. Use of monamine oxidase inhibitors (MAOI s) What are the side effects of phentermine? Immediately discontinue the medicine and seek medical help if you have severe symptoms such as chest pain, shortness of breath, feeling faint, ability to think clearly, eye pain or other visual symptoms: Palpitations (strong or rapid heartbeat) Difficulty sleeping or falling asleep Elevated blood pressure Dry mouth Anxiety or agitation Getting a stimulant/or hyper effect or jitteriness-(Usually goes away after a few days or weeks) Glaucoma In case of emergency/overdose In case of overdose, call your local poison control center at or call local emergency services at [phone]. What other information should I know? Keep all appointments with your doctor and the laboratory. Do not let anyone else take your medication. Phentermine is a controlled substance. It is FDA approved for up to 3 months. Prescriptions may be refilled only a limited number of times. Keep a written list of all of your prescription and nonprescription ([id number]-[id number]) medicines, in addition to vitamins, minerals, or other dietary supplements. If you are taking the extended-release (long-acting) tablets, do not split, chew, or crush them tablet. There are some tablets that can be crushed and mixed with food Alcohol can make the side effects of phentermine worse How should I monitor while on this medication? Please check your blood pressure (BP) and resting pulse weekly (twice a week in the first 2 weeks).If the BP is over 140/90 (either one), or if the resting pulse is over 96 per minute (count for 10 seconds and multiply by 6), then stop the medication and call your doctor. Continue to improve your dietary and physical activity habits as the combination works best while on this medication. Start out by taking the medication in the morning at least 30 minutes prior to meals. If the effectseems to wear off by dinner time, try taking it later in the morning, but taking too late may result in trouble falling asleep. Be sure to eat regular meals. Less hunger does not make it appropriate to skip meals. Monitor your caffeine intake and use of decongestants as they may worsen the effects of phentermine Make sure to have an eye exam, including the pressure in your eyes (intra-ocular pressure), once a year. What should I do if I forget a dose? Skip the missed dose and continue your regular dosing schedule the next day. Do not take a double dose to make up for a missed one. Sources [facility] Consumer Medication Info: http://www.ncbi.nlm.nih.gov/pubmedhealth/RVA7386286/ AMA patient handouts: http://www.amaassn.org/ama1/pub/upload/mm/433/phrxsurgery.pdf Drugs.com: http://www.drugs.com/pro/phentermine.html documented in this encounterTri[facility] History of Present illness Narrative* Renetta Cabrera APRN.SVETLANA - 08/06/2023 2:00 PM EDT Images from the original note were not included. Some documentation from previous visit of 06/16/2023 was copied and pasted, documentation has been reviewed and edited as necessary for today's visit. Patient Summary: Laura is a 28 year old Female who presents for follow-up evaluation of obesity/weight management to treat and prevent related co- morbidities. In our previous visits we have discussedlifestyle intervention including a nutrition recommendations and physical activity optimization. Her last office visit was 3 weeks ago. 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 Benefit: decreased hunger and increased fullness Adverse effects: occasional diarrhea Weight promoting medications: none Previous Diet (initial appointment): Awake - variable works 24 hrs on and 48 hrs off B - 30-60 min after wakening - chocolate milk at home, also had protein cookie S - 2-3 hrs later - breakfast sandwich at station L - leftovers from home or yogurt or almonds/raisins - Home: tomato soup and toast cheese S - handful almonds D - 4:30 or 6:30 usually unbreaded protein, veg - low-carb and most of the time rice/red potato/corn/pasta S - rarely ice cream Fluids - chocolate milk morning, water, Propel packs Bedtime - varies 5-8 hrs Dietary changes: Awake - 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 Protein fiber ball - protein powder, 2 c oatmeal, flax, fatimah, PB, honey, saumya chips L - Two Good or Triple zero yogurt with berries S - none D - 4:30 or 6:30 protein, veg - low-carb and most of the time rice/red potato/corn/pasta or chickennoodle soup S - Rare - ice cream Current Barriers: grazing/irregular meal patterns and excessive hunger/lack of satiety signals, stress/mindless eating Exercise: stable No regular exercise but going on more walks. Work-related activity: Depends on theday. Gym Membership: no Activity Tracker: yes - doesn't wear it often Stress: stable Work Sleep: stable - goal of 8 hrs but sometimes only 5 hours which could be disrupted hours. NIVIA Yes 2018; CPAP does not use Estimated Creatinine Clearance: 131.3 mL/min (based on SCr of 0.81 mg/dL). PAST MEDICAL HISTORY Diagnosis Date NIVIA on CPAP 2017 2023 - has not been using CPAP PCOS (polycystic ovarian syndrome) Pulmonary embolism (HCC) 2018 post leg surgery Current Outpatient Medications Medication Sig Dispense Refill metFORMIN (GLUCOPHAGE) 500 mg tablet Take 1 tablet by mouth two times a day with meals. 180 tablet 0 medroxyPROGESTERone (PROVERA) 10 mg tablet Take 1 tablet by mouth once daily. 10 days a month as needed to start menses 30 tablet 1 MULTIVITAMIN ORAL Take by mouth. inulin (PREBIOTIC FIBER ORAL) Take by mouth. Lactobacillus acidophilus (PROBIOTIC ORAL) Take by mouth. letrozole (FEMARA) 2.5 mg tablet Take 1 tablet by mouth once daily. cycle day 3- 7 (Patient not taking: Reported on 07/15/2023) 5 tablet 2 No current facility-administered medications for this visit. 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 Latest Ref Rng & Units 06/18/2023 CMP Sodium 136 - 144 mmol/L 139 Potassium 3.7 - 5.1 mmol/L 3.8 Chloride 97 - 105 mmol/L 105 CO2 22 - 30 mmol/L 25 Glucose 74 - 99 mg/dL 94 BUN 7 - 21 mg/dL 15 Creatinine 0.58 - 0.96 mg/dL 0.81 EGFR >=60 mL/min/1.73m 100 Protein, Total 6.3 - 8.0 g/dL 7.5 Albumin 3.9 - 4.9 g/dL 4.2 Calcium 8.5 - 10.2 mg/dL 9.0 Bilirubin, Total 0.2 - 1.3 mg/dL 0.5 AST 13 - 35 U/L 12 ALT 7 - 38 U/L 15 Alkaline Phosphatase 34 - 123 U/L 60 Latest Ref Rng & Units 06/18/2023 CBC WBC 3.70 - 11.00 k/uL 7.28 RBC 3.90 - 5.20 m/uL 4.74 Hemoglobin 11.5 - 15.5 g/dL 13.0 Hematocrit 36.0 - 46.0 % 40.3 MCV 80.0 - 100.0 fL 85.0 MCH 26.0 - 34.0 pg 27.4 MCHC 30.5 - 36.0 g/dL 32.3 RDW-CV 11.5 - 15.0 % 12.7 Platelet Count 150 - 400 k/uL 319 MPV 9.0 - 12.7 fL 10.8 Cholesterol, Total (mg/dL) Date Value 06/18/2023 159 11/05/2022 148 HDL Cholesterol (mg/dL) Date Value 06/18/2023 48 11/05/2022 53 LDL Cholesterol (mg/dL) Date Value 06/18/2023 95 LDL (mg/dL) Date Value 11/05/2022 77 Triglyceride (mg/dL) Date Value 06/18/2023 82 11/05/2022 92 TSH (mIU/L) Date Value 06/18/2023 0.757 Vitamin D 25 Hydroxy (ng/mL) Date Value 06/18/2023 40.7 ] Estimated Creatinine Clearance: 131.3 mL/min (based on SCr of 0.81 mg/dL). Hemoglobin A1C (%) Date Value 06/18/2023 5.5 FIB-4 Calculation: 0.29 at 06/18/2023 6:41 AM Calculated from: SGOT/AST: 12 U/L at 06/18/2023 6:41 AM SGPT/ALT: 15 U/L at 06/18/2023 6:41 AM Platelets: 319 k/uL at 06/18/2023 6:41 AM Age: 28 years Assessment/Plan: Laura Castellanos is a 28 year old yo with Class III obesity who presented today for follow up for supervised weight loss to treat and prevent related co-morbidities. 1. NIVIA (obstructive sleep apnea) - ICD9: 327.23, ICD10: G47.33 (primary diagnosis) - has not been using CPAP - CONSULT sleep medicine - appt 09/2023 - benefits of weight loss discussed - Whole food balanced protein low-carb nutrition 2. PCOS (polycystic ovarian syndrome) - ICD9: 256.4, ICD10: E28.2 - continue cyclic provera - has discontinued letrozole temporarily - METFORMIN 500 MG 3. Circadian rhythm sleep disorder, shift work type - ICD9: 327.36, ICD10: G47.26 - Is currently seeking for day-shift position in near future - CONSULT sleep medicine - appt 09/2023 4. Excessive daytime sleepiness - ICD9: 780.54, ICD10: G47.19 - CONSULT sleep medicine - appt 09/2023 5. Malaise and fatigue - ICD9: 780.79, ICD10: R53.81, R53.83 - CONSULT sleep medicine - appt 09/2023 6. Class 3 severe obesity with serious comorbidity and body mass index (BMI) of 40.0 to 44.9 in adult, unspecified obesity type (HCC) - ICD9: 278.01, V85.41, ICD10: E66.01, Z68.41 Weight decreasing Plan: - CONSULT sleep medicine - appt - had nutrition appointment - METFORMIN 500 MG - 1 gm twice a day, requests 500 mg tablets for smaller size - Continue Whole food balanced protein low-carb nutrition - PHENTERMINE 15 MG CAPSULE Phentermine. Risk/benefits discussed at length including potential side effects of increased anxiety, insomnia, increased heart rate, and increased blood pressure. I have asked the patient to monitorblood pressure and avoid any stimulants (in the form of caffeinated beverages like coffee, tea, sports drinks) initially. Patient denies history of arrhythmias, coronary artery disease (atherosclerosis), heart failure, pulmonary hypertension, stroke, valvular heart disease (prolapse, regurgitation,stenosis). The patient is currently enrolled in a diet and exercise program The patient has no known history of contraindications The patient is free from drug or ETHO abuse The patient is not or and is aware not to become while using this medication OARS was reviewed. PDMP website checked and validated. All prescriptions have been APPROPRIATELY filled. No suspicious activity was identified. - Continue to increase physical activity and exercise with goal of 150-200 min/week - discussed nutrition strategies for vacation. Prescription instructions reviewed with patient as applicable. Potential red flag symptoms discussed with the patient. Reviewed appropriate action plan to take ifred flag symptoms occur. Patient agreeable to treatment plan. Follow up in 6 weeks Renetta Cabrera CNP Advanced Education from the Obesity [employer] Medical Decision Making: Problems: Moderate: 1+ chronic illnesses with change and 2+ stable chronic illnesses Risk: Moderate: Moderate risk from testing/treatment and Drug management Medical Decision Making Level: 4 - Moderate documented in this encounterTri[facility]04-24-[facility] History of Present illness Narrative* Yasmin Delvalle MD - 08/05/2023 2:21 PM EDT Laura is a 28 year old who presents for an annual gynecologic exam with complaints, would like to conceive. Last 2 menses 4 weeks apart. One 3 days, one 5. . Started on metformin for wt loss/insulin resistance Menses: cycles every 28-30 days and 3-5 days of flow. 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: none HPV vaccine: No Last Pap: normal HPV: negative History of abnormal pap: No Last mammogram: never OB History T0 L0 SAB0 IAB0 Ectopic0 Multiple0 Live Births0 [place] History LMP: 07/21/2023 (Approximate), Having periods Age at Menarche: Age at First : Age at Menopause: [place] History Comments: Sexual Activity: Yes; Male 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: No contraception data on record PAST MEDICAL HISTORY Diagnosis Date NIVIA on CPAP 2017 2023 - has not been using CPAP PCOS (polycystic ovarian syndrome) Pulmonary embolism (HCC) 2018 post leg surgery PAST SURGICAL HISTORY Procedure Laterality Date APPENDECTOMY HX D&C, DIAG AND/OR THERAPEUTIC 02/2020 KNEE SURGERY HX 2019 LEG SURGERY HX FAMILY HISTORY Problem Relation Age of Onset Diabetes Mother Obesity Mother Obesity Father Obesity Sister Obesity Sister Obesity Sister Obesity Maternal Grandmother SOCIAL HISTORY Social History Tobacco Use Smoking status: Never Smokeless tobacco: Never Vaping Use Vaping Use: Never used Substance Use Topics Alcohol use: Yes Comment: rarely Drug use: Never REVIEW OF SYSTEMS Abdomen: No abdominal pain, nausea, vomiting, diarrhea, or constipation. No bloating, early satiety, indigestion, or increased flatulence. Bladder: No dysuria, gross hematuria, urinary frequency, urinary urgency, or incontinence. Breast: No breast lumps, nipple d/c, overlying skin changes, redness or skin retraction. Allergies and current medication updated:Yes EXAM: BP 116/82 Ht 5' 6.5 (1.69m) Wt 251 lb (113.9kg) LMP 07/21/2023 BMI 39.91 kg/(m^2). GENERAL: pleasant, female in no apparent distress HEENT: Normocephalic, atraumatic, mucus membranes moist, and no lesions NECK: Supple, full range of motion, no adenopathy, and thyroid normal DERMATOLOGY: Normal, without lesions, non-icteric, and non-hirsute BREAST: soft, non-tender, symmetric, no dominant mass, normal nipple-areolar complex, no lymphadenopathy, and no nipple discharge CHEST: Normal inspiratory effort ABDOMEN: soft, non-tender, and no masses PELVIC: external genitalia normal, normal Bartholin's glands, urethra, [place]'s glands, no vulvar lesions, no cervical lesions, good vaginal support, physiologic discharge present, normal appearing perineal body and perianal region BIMANUAL: uterus normal size, shape and consistency, no adnexal masses, and non-tender RECTOVAGINAL: deferred. NEURO: alert and oriented x3,exam grossly non-focal EXTREMITIES: normal ASSESSMENT/PLAN: 1) Health maintenance: Pap done with HPV. Mammogram starting age 40. 2) 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: none. Contraceptive options reviewed and information provided. 3) STD screening: Declined STD check. 4) Follow up one year or sooner as needed would like to trial julia again now that she is on metformin. enocuraged to cont. w/ wt loss and would be willing to retrial julia for her Yasmin Delvalle MD documented in this encounterTri[facility]04-03-2024 Instructions* Patient Instructions* Renetta Cabrera APRN.MORTGAGE COUNSELOR - 07/15/2023 10:36 AM EDT Metformin - increase gradually to 1 gm twice a day - Whole food low-carb diet with 30 g of protein 3 times a day and up to 30 g of carbs at lunch and dinner only. Meals - protein is a goal and carbohydrates are a limit Snacks - all protein or more protein than carbs Use tracking log as a worksheet and bring with you to your next appointment. Protein - no carbs Egg 1 large - 6g Egg white 1 large 3.6g 3 oz is approximately the size of a deck of cards and equals 21 g protein Beef, Chicken, [place], Pork, Tang 1 oz 7g Fish, Tuna Fish 1 oz 7g (Starkist tuna packet 2.6 oz 17 gm protein) Seafood (Crabmeat, Shrimp, Lobster) 1 oz 6g Protein shakes (read labels) Premier Protein or generic [employer] Equate, [employer] High Performance- 30g protein & 1g carb - meal replacement Premier Protein plant protein powder - 25 gm protein, 0 suger/2 carb Vanilla and chocolate (not a meal replacement) Fairlife 30 gram protein - 30g protein & 3g carb BOOST Glucose Control Max 30g Protein Nutritional Drink - 30g protein & 1 carb - meal replacement Slimfast High Protein - 20g protein & 1g carb Ensure Max Protein Nutrition Shake 30g protein & 2 carb Protein AND carbs Beef/[place] Jerky 1 oz dried 10-15g protein - check carb count, can be high if sugar added Slim Ghulam - 6 gm protein and 4 net carb Great Value original turkey sausage sticks - 7 gm protein and 2 gm carb Sandra & Charanjit (at [employer]) Original smoked sausage sticks - 8 gm protein and 0 carb Imitation Crab Meat 1 oz - 2g protein & 4g carb Milk, skim 2% or 1% 8 oz - 8g protein & 12g carb [place] yogurt Full Fat [place] Yogurt 1 cup - 20.4g protein & 9.1g carb 2% [place] Yogurt 1 cup - 22.7g protein & 9.1g carb 0% (fat-free) [place] Yogurt - 1 cup 24g protein & 9.3g carb :ratio, KETO Friendly Dairy Snack 1 single svg - 15g protein & 2g carb :ratio Protein 1 single svg - 25g protein & 8g carb Dannon Light + Fit 1 single csvg - 12g protein & 9g carb Two Good Lowfat [place] Yogurt, [place], Lower Sugar - 12g protein & 2g carb [place] Triple Zero [place] Nonfat Yogurt 1 single svg - 15g protein & 7g carb Aldi Protein [place] yogurt 15g protein & 7g carb Cheese each oz Brie 5.9g protein & 0.1g carb Cheddar Cheese 7g protein & 0.4g carb Mozzarella Cheese 6.3g protein & 0.6g carb Piotr Cheese 6.7g protein & 0.7g carb Parmesan Cheese 10g protein & 0.9g carb Cream Cheese 1.7g protein & 1.2g carb Feta 4g protein & 1.2g carb [place] Cheese 7.6g protein & 1.5g carb Galo s Low Fat Cottage Cheese 1/2cup 12g protein & 4g carb Legumes Lentils cup 9g protein & 20g carb Mak beans cup 7g protein & 20g carb Kidney, Black, [place], Cannellini beans cup 8g protein & 20g carb Soybeans 1/2 c 14g protein & 8.5g carb Peanut butter, natural 2 Tbsp 7-8g protein & 4g net carbs, 190 calories PB2 powder 2 Tbsp 6g protein & 5g carb [place] milk, unsweetened 8 oz 1g protein & 2g carb Soy milk 8 oz 3.5g protein & 1.6g carb Tofu 1/2 cup 10g protein & 2.3g carb Nuts and Seeds per oz Pumpkin Seeds - 6.9g protein & 5g carb Almonds - 5.9g protein & 6.1g carb [place] Seeds - 5.8g protein & 5.6g carb Pistachios - 5.8g protein & 7.8g carb Cashews - 5.1g protein & 9.2g carb Walnuts - 4.3g protein & 3.8g carb Hazelnuts - 4.2g protein & 4.7g carb [place] Nuts - 4.0g protein & 3.4g carb Pecans - 2.6g protein & 3.9g carb Peanuts - 7g protein & 4.6g carb <15 gram carb fruit options Berries have the lowest sugar content 1/2 cup diced honeydew melon - 8 carbs 1/2 cup diced watermelon - 6 carbs One half medium grapefruit - 10.5 carbs 1 medium orange -15.5 carbs 1 medium peach -14.5 carbs 1/2 cup fresh cranberries - 6.5 carbs 1 medium plum -7.5 carbs 1/2 cup raspberries -7.5 carbs 1 medium Nella -9 carbs 1/2 cup fresh pineapple -11 carbs 1 medium nectarine - 15 carbs 1/2 cup blueberries - 11 carbs - may actually help you lose weight 1 medium kiwi without skin - 11 carbs 1/2 cup fresh cherries -11 carbs 1 medium tangerine -12 carbs 1/2 cup sliced chris -14 carbs 1/2 medium banana 1/2 c grapes 1/2 medium apple - 12.5 carbs 1/2 c strawberries - 12.7 carbs 5 (FIVE) gram carb vegetable options 1 cup raw OR cup cooked: Asparagus Cabbage Spinach Peppers Green beans Carrots Tomato [place] sprouts Cauliflower Lettuce Snap peas Broccoli Eggplant Zucchini Turnips Spaghetti squash Brussel sprouts 15 gram carb vegetable options cup cooked green peas cup cooked corn or hominy corn on the cob, large (5 oz) cup cooked sweet potato, plain cup cooked potato, plain 1 small potato or sweet potato 1 cup winter squash (pumpkin, acorn, butternut) 1 cup marinara or pasta sauce - check label cup tomato juice cup tomato puree Beans, Seeds, Nuts cup cooked beans (kidney, cr, red, green, etc.) cup cooked lentils cup baked beans 4 tablespoons nut butter Grains Brown rice 1/2 c 5.5g protein 24 carb White long-grain rice 1/2 c 2g protein 22.5 carb Quinoa 1/2 c 4 gm complete protein 25 carb Oatmeal, old fashioned 1/2 c 5g protein 27g carb 30 High Protein Snack Ideas 1. Jerky 2. [place] mix without dried fruit 3. [place] roll-ups 4. [place] yogurt 5. Veggies and yogurt dip 6. Tuna 7. Hard-boiled eggs 8. Peanut butter with celery 9. Cheese slices/ Cheese Stick 10. Handful of almonds, peanuts or walnuts 11. Cottage Cheese 12. Beef sticks 13. Protein bars 14. Canned [place] 15. Pumpkin seeds 16. Nut butter 17. Protein shakes 18. Avocado and chicken salad 19. Egg muffins 20. Leftover protein or lunch meat 21. 1/2 c blended cottage cheese with 1 Tbsp sugar-free dry cheesecake pudding mix 12g protein 10 carb documented in this encounterTri[facility]04-03-[facility] History of Present illness Narrative* Renetta Cabrera APRN.CNP - 07/15/2023 10:00 AM EDT Some documentation from previous visit of 06/16/2023 was copied and pasted, documentation has been reviewed and edited as necessary for today's visit. Patient Summary: Laura is a 28 year old Female who presents for follow-up evaluation of obesity/weight management to treat and prevent related co- morbidities. In our previous visits we have discussedlifestyle intervention including a nutrition recommendations and physical activity optimization. Her last office visit was 1 month ago. 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 Benefit: has not noticed any Adverse effects: no side effects Weight promoting medications: none Previous Diet (initial appointment): Awake - variable works 24 hrs on and 48 hrs off B - 30-60 min after wakening - chocolate milk at home, also had protein cookie S - 2-3 hrs later - breakfast sandwich at station L - leftovers from home or yogurt or almonds/raisins - Home: tomato soup and toast cheese S - handful almonds D - 4:30 or 6:30 usually unbreaded protein, veg - low-carb and most of the time rice/red potato/corn/pasta S - rarely ice cream Fluids - chocolate milk morning, water, Propel packs Bedtime - varies 5-8 hrs Dietary changes: Awake - 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 B - 15-60 min after wakening - 30 gm protein shake (hungry within 1-2 hours) S - 1 hour later - oatmeal cookie or sourdough toast with honey/jelly S - 0930 2 HB eggs or cottage cheese or Triple Zero yogurt L - coffee drink with milk, SF jello with cottage cheese or sourdough bread with turkey /cheese or snack type foods S - Rare - had cream stick yesterday D - 4:30 or 6:30 usually unbreaded protein, veg - low-carb and most of the time rice/red potato/corn/pasta S - Rare - ice cream Current Barriers: grazing/irregular meal patterns and excessive hunger/lack of satiety signals, stress/mindless eating Exercise: stable No regular exercise but going on more walks. Work-related activity: Depends on theday. Gym Membership: no Activity Tracker: yes - doesn't wear it often Stress: increased Work Sleep: stable - goal of 8 hrs but sometimes only 5 hourswhich could be disrupted hours. NIVIA Yes 2018; CPAP does not use Estimated Creatinine Clearance: 131.9 mL/min (based on SCr of 0.81 mg/dL). PAST MEDICAL HISTORY Diagnosis Date NIVIA on CPAP 2017 2023 - has not been using CPAP PCOS (polycystic ovarian syndrome) Pulmonary embolism (HCC) 2018 post leg surgery Current Outpatient Medications Medication Sig Dispense Refill metFORMIN (GLUCOPHAGE) 500 mg tablet Take 1 tablet by mouth two times a day with meals. 180 tablet 0 medroxyPROGESTERone (PROVERA) 10 mg tablet Take 1 tablet by mouth once daily. 10 days a month as needed to start menses 30 tablet 1 MULTIVITAMIN ORAL Take by mouth. inulin (PREBIOTIC FIBER ORAL) Take by mouth. Lactobacillus acidophilus (PROBIOTIC ORAL) Take by mouth. letrozole (FEMARA) 2.5 mg tablet Take 1 tablet by mouth once daily. cycle day 3- 7 (Patient not taking: Reported on 07/15/2023) 5 tablet 2 No current facility-administered medications for this visit. 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 Glucose (mg/dL) Date Value 06/18/2023 94 11/05/2022 92 Potassium (mmol/L) Date Value 06/18/2023 3.8 11/05/2022 3.9 Sodium (mmol/L) Date Value 06/18/2023 139 11/05/2022 139 Chloride (mmol/L) Date Value 06/18/2023 105 11/05/2022 104 CO2 (mmol/L) Date Value 06/18/2023 25 11/05/2022 23 Creatinine (mg/dL) Date Value 06/18/2023 0.81 11/05/2022 0.67 BUN (mg/dL) Date Value 06/18/2023 15 11/05/2022 17 Anion Gap (mmol/L) Date Value 06/18/2023 9 11/05/2022 15.9 Calcium (mg/dL) Date Value 11/05/2022 9.5 Calcium, Total (mg/dL) Date Value 06/18/2023 9.0 Protein, Total (g/dL) Date Value 06/18/2023 7.5 11/05/2022 7.7 Albumin (g/dL) Date Value 06/18/2023 4.2 11/05/2022 4.2 Bilirubin, Total (mg/dL) Date Value 06/18/2023 0.5 11/05/2022 0.3 Alkaline Phosphatase (U/L) Date Value 06/18/2023 60 11/05/2022 59 AST (U/L) Date Value 06/18/2023 12 11/05/2022 14 ALT (U/L) Date Value 06/18/2023 15 11/05/2022 12 WBC Date Value 06/18/2023 7.28 k/uL 11/05/2022 6.1 x10(3) RBC Date Value 06/18/2023 4.74 m/uL 11/05/2022 4.65 x10(6) Hemoglobin (g/dL) Date Value 06/18/2023 13.0 11/05/2022 12.6 Hematocrit (%) Date Value 06/18/2023 40.3 11/05/2022 39.2 MCV Date Value 06/18/2023 85.0 fL 11/05/2022 84.3 fl MCH (pg) Date Value 06/18/2023 27.4 11/05/2022 27.1 (L) MCHC (g/dL) Date Value 06/18/2023 32.3 11/05/2022 32.1 (L) RDW-CV (%) Date Value 06/18/2023 12.7 Platelet Count Date Value 06/18/2023 319 k/uL 11/05/2022 300 X10(3) MPV Date Value 06/18/2023 10.8 fL 11/05/2022 11.3 fl (H) Cholesterol, Total (mg/dL) Date Value 06/18/2023 159 11/05/2022 148 HDL Cholesterol (mg/dL) Date Value 06/18/2023 48 11/05/2022 53 LDL Cholesterol (mg/dL) Date Value 06/18/2023 95 LDL (mg/dL) Date Value 11/05/2022 77 Triglyceride (mg/dL) Date Value 06/18/2023 82 11/05/2022 92 Estimated Creatinine Clearance: 131.9 mL/min (based on SCr of 0.81 mg/dL). Hemoglobin A1C (%) Date Value 06/18/2023 5.5 FIB-4 Calculation: 0.29 at 06/18/2023 6:41 AM Calculated from: SGOT/AST: 12 U/L at 06/18/2023 6:41 AM SGPT/ALT: 15 U/L at 06/18/2023 6:41 AM Platelets: 319 k/uL at 06/18/2023 6:41 AM Age: 28 years Assessment/Plan: Laura Castellanos is a 28 year old yo with Class III obesity who presented today for follow up for supervised weight loss to treat and prevent related co-morbidities. 1. NIVIA (obstructive sleep apnea) - ICD9: 327.23, ICD10: G47.33 (primary diagnosis) - has not been using CPAP - CONSULT sleep medicine - appt 09/2023 - benefits of weight loss discussed - Whole food balanced protein low-carb nutrition 2. PCOS (polycystic ovarian syndrome) - ICD9: 256.4, ICD10: E28.2 - continue cyclic provera - will discontinue letrozole temporarily - METFORMIN 500 MG 3. Circadian rhythm sleep disorder, shift work type - ICD9: 327.36, ICD10: G47.26 - Is currently seeking for day-shift position in near future - CONSULT TO SLEEP MEDICINE - ADULT 4. Excessive daytime sleepiness - ICD9: 780.54, ICD10: G47.19 - CONSULT TO SLEEP MEDICINE - ADULT 5. Malaise and fatigue - ICD9: 780.79, ICD10: R53.81, R53.83 - CONSULT TO SLEEP MEDICINE - ADULT 6. Class 3 severe obesity with serious comorbidity and body mass index (BMI) of 40.0 to 44.9 in adult, unspecified obesity type (HCC) - ICD9: 278.01, V85.41, ICD10: E66.01, Z68.41 Plan: -- Based on the severity and resistance of the obesity/overweight with co- morbidities, I believe a combination of behavioral and pharmacological intervention is the best and most appropriate [facility] therapeutic option. - CONSULT TO SLEEP MEDICINE - ADULT - 09/14/2023 - had nutrition appointment - METFORMIN 500 MG - If tolerating will increase to 2 tablets twice a day - Whole food low-carb diet with 30 g of protein 3 times a day and up to 30 g of carbs at lunch and dinner only. Meals - protein is a goal and carbohydrates are a limit Snacks - all protein or more protein than carbs Use tracking log as a worksheet and bring with you to your next appointment. - Continue to increase physical activity and exercise Prescription instructions reviewed with patient as applicable. Potential red flag symptoms discussed with the patient. Reviewed appropriate action plan to take ifred flag symptoms occur. Patient agreeable to treatment plan. Follow up in 4 weeks Renetta Cabrera CNP Advanced Education from the [employer] I spent a total of 35 minutes on the date of the service which included preparing to see the patient, [id number] patient care, completing clinical documentation, obtaining and/or reviewing separately obtained history, performing a medically appropriate examination, counseling and educating the pat ient/family/caregiver, and communicating results to the patient/family/caregiver. documented in this encounterTri[facility]03-19-[facility] Instructions* Patient Instructions* Alondra Jones RD - 06/30/2023 12:54 PM EDT Start exercise, start with 30 min walking 5 days per week (treadmill, part, etc) Aim for approx 30 grams protein per meal, lean meats, beans, high protein grains with added additional protein Spread intake evenly throughout the day All meals and snacks at the dinner table; minimize distractions, no TV while eating. Make meals last at least 20 min, chew each bite of food 20 x per bite.Portion out all foods, never eat out of container. Become more mindful of meal: Enjoy flavors, textures etc. Use hunger/fullness scale. 1.Aim for a well balanced diet of lean proteins, whole grains, fruits and vegetables, healthy fats with very low sugar and refined carbs. Goal for frequent small meals and to avoid large amounts of carb at any one time. 2. Aim for < 30% of calories from fat; 30-35% of calories from protein; 35-40% calories from carb 3. choose lean/lowfat protein sources only; limiting fat-especially saturated fat 4. Choose whole grain/high fiber foods; low glycemic index type foods 5. Aim for frequent small meals to spread carbohydrate intake throughout the day 6. Fiber goal 25-30 grams daily; choose fruits, vegetables, and beans 7. Aim for regular exercise, preferably at least 30 min daily 5-6 times per week; include weight resistance exercise 2-3 days per week 8. limit sodium intake to 2400 mg daily 9. Include an MVI; fish oil supplement 1000 mg omega 3's; ALA 20-50 mg; Vit E 400 IU, B vitamins, Ensure adequate Calcium- aim for 3 servings daily of fat free or low fat milk or dairy and Vit D-may supplement as needed and include a vitamin C Source daily such as citrus fruits, kiwi, red pepper, strawberries, green pepper, broccoli, Brussel sprouts, guava, canteloup, papaya. If not losing weight considering tracking 2-3 x per week aiming for 1700 sujatha, try the pool Milk. documented in this encounterTri[facility]03-19-2024 History of Present illness Narrative* Alondra Jones RD - 06/30/2023 12:19 PM EDT Nutrition Therapy Initial Assessment Nutrition Diagnosis: Overweight/obesity, related to, excess energy intake and physical inactivity, as evidenced by BMI above normative standard for age and gender. RECOMMENDED MALNUTRITION DIAGNOSIS: NO MALNUTRITION IDENTIFIED NUTRITION CARE PLAN Nutrition Intervention 06/30/2023: modify type and amount of food or beverage Start exercise, start with 30 min walking 5 days per week (treadmill, part, etc) Aim for approx 30 grams protein per meal, lean meats, beans, high protein grains with added additional protein Spread intake evenly throughout the day All meals and snacks at the dinner table; minimize distractions, no TV while eating. Make meals last at least 20 min, chew each bite of food 20 x per bite.Portion out all foods, never eat out of container. Become more mindful of meal: Enjoy flavors, textures etc. Use hunger/fullness scale. 1.Aim for a well balanced diet of lean proteins, whole grains, fruits and vegetables, healthy fats with very low sugar and refined carbs. Goal for frequent small meals and to avoid large amounts of carb at any one time. 2. Aim for < 30% of calories from fat; 30-35% of calories from protein; 35-40% calories from carb 3. choose lean/lowfat protein sources only; limiting fat-especially saturated fat 4. Choose whole grain/high fiber foods; low glycemic index type foods 5. Aim for frequent small meals to spread carbohydrate intake throughout the day 6. Fiber goal 25-30 grams daily; choose fruits, vegetables, and beans 7. Aim for regular exercise, preferably at least 30 min daily 5-6 times per week; include weight resistance exercise 2-3 days per week 8. limit sodium intake to 2400 mg daily 9. Include an MVI; fish oil supplement 1000 mg omega 3's; ALA 20-50 mg; Vit E 400 IU, B vitamins, Ensure adequate Calcium- aim for 3 servings daily of fat free or low fat milk or dairy and Vit D-may supplement as needed and include a vitamin C Source daily such as citrus fruits, kiwi, red pepper, strawberries, green pepper, broccoli, Brussel sprouts, guava, canteloup, papaya. If not losing weight considering tracking 2-3 x per week aiming for 1700 sujatha, try the pool Milk. Nutrition Monitoring & Evaluation: 1-2 lb weight loss per week Need for Follow up: 1 month Patient presents for initial MNT as relates to class 3 Body mass index is 40.92 kg/m . Other medical issues NIVIA, PCOS, has had several surgeries, pulmonary embolism. Highest weight 262, lowest [id number] with a goal weight of 190 lb. Struggled with weight all of life. Has tried restricting intake, avoiding foods; Optivia - prepackaged foods, did well with this reaching 190 lbs but regained. Currently avoiding sugar and feels better. Typically eating 3 meals, usually no snacks unless hungry the snacks appropriately on almonds. Beverages appropriate. Has tried tracking but did not like tracking. No regular exercise , some activity at home and at work. 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, occ able to sleep during the night if not busy Patient's symptoms are: Weight Concerns: failure to lose weight Diet History: Breakfast - [place] and premier Sleep: nap Snack - no Lunch - left overs, egg cups made with cottage cheese and veggies; breakfast stack; rose, eggs, hashbrowns; Triple zero daily Snack - no Dinner - when home; vegetable and meat (chicken, occ burger)occ additional carb; if at work: protein and veg Snack - no Beverages - water, propel, Ice drinks, sparkling water Alcohol- occ one x per month if out Vitamins/Supplements - MVI, fish oil, vit D Occ snacks of almonds if needed (hungry) Activity: Activities of Daily Living: activities around the house, some activity at work Additional Activity: Sedentary (Little or no exercise: <1x/week) No - tired Does have a treadmill Anthropometrics: Height: Last 1 Encounter Ht Readings: Date: Ht: 06/30/2023 5' 6.5 (1.689 m) Current weight: Last 1 Encounter Wt Readings: Date: Wt: 06/30/2023 257 lb 6.4 oz (116.8 kg) Body mass index is 40.92 kg/m . Resting Metabolic Rate: 1913 Malnutrition Screening Significant unintentional weight loss? No Eating less than 75% of usual intake for more than 2 weeks? No Potential Signs of Inflammation: no identifiable sources Education Materials Provided: Lean Protein Foods and Whole Foods Plant Based Diet READINESS TO LEARN Cognitive ability: Alert and oriented Motivation to learn: Interested Family support: Unable to assess - Family not present Instruction provided to: Patient Patient learns best by: Individual Instruction Factors affecting learning: None Physical limitations affecting learning: None Referred/Supervised by: Nabor BALL Billing Type: Initial Assess/15 min 3 units SIGNATURE: Alondra Jones RD PATIENT NAME: Laura Castellanos DATE: June 30, 2023 TIME: 12:19 PM documented in this encounterTri[facility]02-22-2024 Miscellaneous Notes* Telephone Encounter - Devang Deluna MD - 06/04/2023 12:12 PM EST Hcg quant ordered Devang Deluna MD * Telephone Encounter - Cat Villanueva RN - 06/04/2023 11:29 AM EST Patient called in because she took another urine test since sending this message and saw a very faint positive result now. Asking if she can get blood work done. Hcg quant order pending if okay. Cat Villanueva RN documented in this encounterTrihealth [facility]02-11-2024 NoteHNO ID: [id number] Author: MARY MENJIVAR PA-C Service: ? Author Type: Physician Sales Communications Manager Type: Progress Notes Filed: 05/24/2023 12:59 Note Text: Laura Castellanos is a 28 year old female who presents with Hematuria (S/S ongoing for (6) days) Patient is a 28-year-old female who presents to the office with 6 days of UTI symptoms. Patient states she has had hematuria, dysuria, urgency, frequency and pain with urination. Some nausea associated. Patient states that she has been taking Azo which was helping at first but not anymore. Patient is also been drinking cranberry juice. Denies abdominal pain, flank pain. Patient states he had very mild left lower back pain today. No fever, chills, vomiting, diarrhea, chest pain, shortness of breath, headache weakness. Patient states she did have a UTI back in the fall and was on Bactrim for symptom management. Patient states she has history of appendectomy. LMP May 02. Patient states she is sexually active. Patient states she is trying to get . Denies any additional complaints. The history is provided by the patient. No language translator was used. PAST MEDICAL HISTORY Diagnosis Date PCOS (polycystic ovarian syndrome) There is no problem list on file for this patient. Current Outpatient Medications Medication Sig Dispense Refill MULTIVITAMIN ORAL Take by mouth. inulin (PREBIOTIC FIBER ORAL) Take by mouth. Lactobacillus acidophilus (PROBIOTIC ORAL) Take by mouth. medroxyPROGESTERone (PROVERA) 10 mg tablet Take 1 tablet by mouth once daily. 10 days a month as needed to start menses 30 tablet 1 letrozole (FEMARA) 2.5 mg tablet Take 1 tablet by mouth once daily. cycle day 3-7 5 tablet 2 No current facility-administered medications for this visit. Social History Tobacco Use Smoking status: Never Smokeless tobacco: Never Vaping Use Vaping Use: Never used Substance Use Topics Alcohol use: Yes Comment: rarely Drug use: Never Alcohol Use: Yes (rarely) Tobacco Use: Never FAMILY HISTORY Problem Relation Age of Onset Diabetes Mother Review of Systems Constitutional: Negative for chills, fever and malaise/fatigue. HENT: Negative for congestion and sore throat. Eyes: Negative for blurred vision, double vision and pain. Respiratory: Negative for cough, shortness of breath and wheezing. Cardiovascular: Negative for chest pain. Gastrointestinal: Positive for nausea. Negative for abdominal pain, diarrhea and vomiting. Genitourinary: Positive for dysuria, frequency and urgency. Negative for flank pain and hematuria. Musculoskeletal: Positive for back pain (mild). Neurological: Negative for dizziness, weakness and headaches. Unless specified in HPI, remaining review of systems negative. BP 120/76 Pulse 75 Temp 99.2 Resp 20 Wt 240 lb (108.9kg) SpO2 98% LMP 05/02/2023 Physical Exam Vitals and nursing note reviewed. Constitutional: Appearance: Normal appearance. HENT: Head: Normocephalic and atraumatic. Nose: Nose normal. Right Sinus: No maxillary sinus tenderness or frontal sinus tenderness. Left Sinus: No maxillary sinus tenderness or frontal sinus tenderness. Mouth/Throat: Mouth: Mucous membranes are moist. Pharynx: Oropharynx is clear. Eyes: Extraocular Movements: Extraocular movements intact. Conjunctiva/sclera: Conjunctivae normal. Pupils: Pupils are equal, round, and reactive to light. Cardiovascular: Rate and Rhythm: Normal rate and regular rhythm. Pulses: Normal pulses. Heart sounds: Normal heart sounds. Pulmonary: Effort: Pulmonary effort is normal. Breath sounds: Normal breath sounds. Abdominal: General: Abdomen is flat. There is no distension. Palpations: Abdomen is soft. There is no mass. Tenderness: There is abdominal tenderness (mild) in the suprapubic area. There is no right CVA tenderness, left CVA tenderness, guarding or rebound. Negative signs include Moreira's sign, Rovsing's sign and McBurney's sign. Hernia: No hernia is present. Musculoskeletal: Cervical back: Normal range of motion and neck supple. No rigidity or tenderness. Lymphadenopathy: Cervical: No cervical adenopathy. Skin: General: Skin is warm and dry. Neurological: General: No focal deficit present. Mental Status: She is alert and oriented to person, place, and time. Mental status is at baseline. Psychiatric: Mood and Affect: Mood normal. Behavior: Behavior normal. ASSESSMENT/PLAN: 1. Urinary tract infection with hematuria, site unspecified - ICD9: 599.0, 599.70, ICD10: N39.0, R31.9 (primary diagnosis) - CEPHALEXIN 500 MG CAPSULE 2. UTI symptoms - ICD9: 788.99, ICD10: R39.9 - URINALYSIS, DIPSTICK ONLY - URINE CULTURE - HCG QUAL UR Latest Reference Range AND Units 05/24/23 12:42 Color Yellow Yellow Clarity Clear Cloudy ! Specific [place], Ur 1.005 - 1.030 1.010 pH, Urine 5.0 - 8.0 6.0 Protein, Urine Negative Negative Glucose, Urine Negative Ne (more content not included)...[facility] 04-17-2023 Instructions* Patient Instructions* Yasmin Delvalle MD - 04/17/2023 3:14 PM EST Start the femara on day 3 of your cycle. Cycle day one is the first day of menstrual flow (usually more than spotting, when you would wear more than a pantyliner for protection). Take the femara for 5 days. If you are prescribed more than one pill of femara you make take them all at the same time. Time intercourse every other day cycle day 9-16. Use an ovulation prediction kit starting at about day 10 if you want. Record date/dates that you get color changes if you get color changes. Get a day 21 progesterone level drawn (if day 21 is a Thursday it is ok to get it a day early or day late). Call with onset of your period or on day 32 w/ the results of a home test if you haven't started your period yet. Risks of ovulation induction include but are not limited to : multiple gestatations (twins or rarely triplets), ovarian hyperstimulation syndrome that results in large ovarian cysts and sometimes pain and electrolyte abnormalities that need treated by hospitalization, increased pain or bleeding with menstruation, moodiness, nausea, breast tenderness or allergic reactions to the medication. documented in this encounterTri[facility]01-[facility]24 History of Present illness Narrative* Yasmin Delvalle MD - 04/17/2023 2:26 PM EST Laura Castellanos is a 28 year old female who presents for problem visit for C/O IRREG MENSES AND PRECONCEPTUAL COUNSELING. HPI: 28 yof PRESENTS ATTEMPTING FOR 6 MONTHS. h/O IRREG MENSES AND THEN WERE REGULAR FOR A WHILE NOW IRREG AGAIN. [facility] in past. Brings w/ her some labs. has never fathered a . Has had Pelvic US in past and dx w/ PCOS in past. Has had EMB in past as well. HadD&C. Has h/o wt loss after D&C and has gained some. OB History [employer] History LMP: 04/16/2023 (Approximate), Having periods Age at Menarche: Age at First : Age at Menopause: [employer] History Comments: Sexual Activity: Yes; Male 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: No contraception data on record PAST MEDICAL HISTORY Diagnosis Date PCOS (polycystic ovarian syndrome) PAST SURGICAL HISTORY Procedure Laterality Date APPENDECTOMY HX D&C, DIAG AND/OR THERAPEUTIC 02/2020 KNEE SURGERY HX 2019 LEG SURGERY HX FAMILY HISTORY Problem Relation Age of Onset Diabetes Mother Social History Tobacco Use Smoking status: Never Smokeless tobacco: Never Vaping Use Vaping Use: Never used Substance Use Topics Alcohol use: Yes Drug use: Never Current Outpatient Medications Medication Sig MULTIVITAMIN ORAL Take by mouth. inulin (PREBIOTIC FIBER ORAL) Take by mouth. Lactobacillus acidophilus (PROBIOTIC ORAL) Take by mouth. No current facility-administered medications for this visit. Allergies As of Date: 04/17/2023 (No Known Allergies) Fully Assessed 04/17/2023 Breast: no galactorrhea. Expanded ROS: N/A Allergies and current medication updated:Yes EXAM: BP 112/74 Wt 259 lb (117.5kg) LMP 04/16/2023 GENERAL: pleasant, female in no apparent distress ASSESSMENT AND PLAN: preconceptual counseling- Family h/o dwarfism for patient's sister. Offered her carrier panel screening and if she knows the type of dwarfism her sister has we can screen potentially for this as well. Patient declines for now but will consider. Had chickenpox vaccine and other routine vaccines as achild. Continue multivitamin with folic acid in anticipation of . obesity-discussed with her health optimization before . Consider 15 to 20 pounds weight loss. Recommend she consider weight management consultation. If patient desires that she will scheduleon the way out. Reviewed patient's labs and previous US that she brought w/ her and does seem to have PCOS and oligo ovulation. We discussed risk benefits and alternatives to trial of Femara for ovulation induction.We reviewed the instructions for this. See patient instructions. Patient would like to proceed withthis. Discussed with her recommend strongly Provera withdrawal monthly to induce menses. She is in u nderstanding and agreement with this plan. Medical Decision Making: Problems: Moderate: New problem with uncertain prognosis Data: Unique test result(s) reviewed: 3+ Risk: Moderate: Drug management Medical Decision Making Level: 4 - Moderate Yasmin Delvalle MD documented in this encounterTri[facility]09-12-[facility]23 History of Present illness Narrative* Regina Benitez RN - 12/23/2022 2:21 PM EDT Received records from [facility]. Placed in binder for upcoming appointment. Regina Benitez RN documented in this encounterTrihealth [facility]03-08-2023 History of Present illness Narrative* Gilbert Vail APRN.MORTGAGE COUNSELOR - 06/18/2022 8:13 AM EST June 18, 2022 HPI: Laura Geiger is a 27 year old female who presents today for cough x 5 days. Patient stated that chest feels congested. OTC: Dayquil. History reviewed. No pertinent past medical history. PAST SURGICAL HISTORY Procedure Laterality Date APPENDECTOMY HX LEG SURGERY HX History reviewed. No pertinent family history. Social History Tobacco Use Smoking status: Never Smokeless tobacco: Never ALLERGIES No Known Allergies Immunization History Administered Date(s) Administered COVID-19 original vaccine, full dose, monovalent (MODERNA) 04/14/2020 05/09/2020 tuberculin skin test (TST-PPD), purified protein derivative, intradermal 11/26/2020 Current Medications: benzonatate (TESSALON PERLES) 100 mg capsule Take 2 capsules by mouth three times daily as needed for cough for up to 7 days. Review of Systems Constitutional: Negative for chills and fever. HENT: Negative for ear pain and sore throat. Respiratory: Positive for cough. Negative for sputum production and shortness of breath. Cardiovascular: Negative for chest pain. All other systems reviewed and are negative. Objective BP 133/86 Pulse 73 Temp 98.2 Resp 16 Wt 220 lb (99.8kg) SpO2 98% LMP 06/10/2022 Physical Exam Constitutional: General: She is not in acute distress. Appearance: Normal appearance. She is not ill-appearing or toxic-appearing. HENT: Head: Normocephalic and atraumatic. Right Ear: Tympanic membrane normal. Left Ear: Tympanic membrane normal. Nose: Nose normal. Mouth/Throat: Mouth: Mucous membranes are moist. Pharynx: Oropharynx is clear. No posterior oropharyngeal erythema. Eyes: Conjunctiva/sclera: Conjunctivae normal. Cardiovascular: Rate and Rhythm: Normal rate and regular rhythm. Pulmonary: Effort: Pulmonary effort is normal. No respiratory distress. Breath sounds: Normal breath sounds. No stridor. No wheezing. Musculoskeletal: Cervical back: No rigidity or tenderness. Lymphadenopathy: Cervical: No cervical adenopathy. Skin: General: Skin is warm and dry. Capillary Refill: Capillary refill takes less than 2 seconds. Findings: No petechiae or rash. Neurological: Mental Status: She is alert and oriented to person, place, and time. Psychiatric: Mood and Affect: Mood normal. Behavior: Behavior normal. ASSESSMENT/PLAN: 1. Viral upper respiratory tract infection - ICD9: 465.9, ICD10: J06.9 - Discussed viral etiology and rationale for treatment. - Symptomatic treatment with prn analgesia - Supportive care with fluids and rest - Follow up in 3-5 days if symptoms persist or sooner if worsening of symptoms - BENZONATATE 100 MG CAPSULE Gilbert Vail APRN.CNP [facility] Inst[facility]* Patient Instructions* Gilbert Vail APRN.CNP - 06/18/2022 8:13 AM EST Pt will follow up with PCP if not better in 2-3 days or go to emergency department if worsening condition RESPIRATORY INFECTION GENERAL INFORMATION: An upper respiratory tract infection, or cold, is a viral infection of the airway passages. It can be caused by any one of almost 200 different viruses. Common symptoms include a runny or stuffy nose, sneezing, watery eyes, sore throat, cough, and slight fever. Colds are contagious, especially during the first 3 or 4 days and cannot be cured by antibiotics. They are spread by coughs, sneezes, anddirect contact, especially [id number]. A respiratory tract infection usually clears up in a few days, but some people may be sick for a week or two. INSTRUCTIONS: 1. Be careful not to blow your nose too hard because this may cause a nosebleed. 2. Use a cool-mist humidifier (vaporizer) to increase air moisture. This will make it easier for you to breathe. Do not use hot steam. 3. Rest as much as possible and get plenty of sleep. 4. Wash your hands often, especially after you blow your nose. Cover your mouth and nose with a tissue when you sneeze or cough. 5. Drink plenty of clear fluids (8 glasses a day) such as water, fruit juice, tea, clear soups, andcarbonated beverages. CONTACT YOUR DOCTOR IF : 1. Your fever lasts more than 3 days. 2. You have a sore throat that gets worse or you see white or yellow spots in your throat. 3. Your cough gets worse or lasts more than 10 days. 4. You develop a rash anywhere on your skin. 5. You have an earache or a headache. 6. You have thick greenish or yellowish discharge from your nose. RETURN IMMEDIATELY IF: 1. You cough up thick yellow, green, hughes, or bloody sputum. 2. You have difficulty breathing, pain in your chest, or your skin or nails look hughes or blue. 3. You have shaking chills or a temperature over 102 F (39 C). [facility]* Diagnosis Viral upper respiratory tract infection- Primary Acute upper respiratory infections of unspecified site [facility] noteNo assessment information availableWDetwiler [facility] Work Phone: Evaluation note* Diagnosis Oligo-ovulation- Primary Female infertility associated with anovulation Morbid obesity (HCC) Morbid obesity PCOS (polycystic ovarian syndrome) Polycystic ovaries documented in this encounter [facility] note* Diagnosis Late menses- Primary Other disorder of menstruation and other abnormal bleeding from female genital tract documented in [facility]* Diagnosis Dietary counseling- Primary Dietary surveillance and counseling NIVIA (obstructive sleep apnea) Obstructive sleep apnea (adult) (pediatric) PCOS (polycystic ovarian syndrome) Polycystic ovaries Circadian rhythm sleep disorder, shift work type Excessive daytime sleepiness Malaise and fatigue Other malaise and fatigue Class 3 severe obesity with serious comorbidity and body mass index (BMI) of 40.0 to 44.9 in adult, unspecified obesity type (HCC) documented in [facility]* Diagnosis NIVIA (obstructive sleep apnea)- Primary Obstructive sleep apnea (adult) (pediatric) PCOS (polycystic ovarian syndrome) Polycystic ovaries Circadian rhythm sleep disorder, shift work type Excessive daytime sleepiness Malaise and fatigue Other malaise and fatigue Class 3 severe obesity with serious comorbidity and body mass index (BMI) of 40.0 to 44.9 in adult, unspecified obesity type (HCC) documented in this encounter [facility] note* Diagnosis Encounter for gynecological examination (general) (routine) without abnormal findings- Primary Screening for cervical cancer Screening for malignant neoplasm of the cervix Encounter for screening for human papillomavirus (HPV) Special screening examination for human papillomavirus (HPV) NIVIA (obstructive sleep apnea)- Primary Obstructive sleep apnea (adult) (pediatric) PCOS (polycystic ovarian syndrome) Polycystic ovaries Circadian rhythm sleep disorder, shift work type Excessive daytime sleepiness Malaise and fatigue Other malaise and fatigue Class 3 severe obesity with serious comorbidity and body mass index (BMI) of 40.0 to 44.9 in adult, unspecified obesity type (HCC) [facility] Diagnosis NIVIA (obstructive sleep apnea)- Primary Obstructive sleep apnea (adult) (pediatric) PCOS (polycystic ovarian syndrome) Polycystic ovaries Circadian rhythm sleep disorder, shift work type Excessive daytime sleepiness Malaise and fatigue Other malaise and fatigue Class 3 severe obesity with serious comorbidity and body mass index (BMI) of 40.0 to 44.9 in adult, unspecified obesity type (HCC) [facility]* Diagnosis NIVIA (obstructive sleep apnea)- Primary Obstructive sleep apnea (adult) (pediatric) Insomnia, unspecified type Obesity, Class II, BMI 35-39.9 Obesity, unspecified [facility]* Diagnosis NIVIA on CPAP- Primary Obstructive sleep apnea (adult) (pediatric) PCOS (polycystic ovarian syndrome) Polycystic ovaries Class 3 severe obesity with serious comorbidity and body mass index (BMI) of 40.0 to 44.9 in adult, unspecified obesity type (HCC) UTI symptoms Other symptoms involving urinary system [facility]* Diagnosis NIVIA on CPAP- Primary Obstructive sleep apnea (adult) (pediatric) PCOS (polycystic ovarian syndrome) Polycystic ovaries Class 3 severe obesity with serious comorbidity and body mass index (BMI) of 40.0 to 44.9 in adult, unspecified obesity type (HCC) [facility]* Diagnosis NIVIA on CPAP- Primary Obstructive sleep apnea (adult) (pediatric) PCOS (polycystic ovarian syndrome) Polycystic ovaries Class 3 severe obesity with serious comorbidity and body mass index (BMI) of 40.0 to 44.9 in adult, unspecified obesity type (HCC) [facility]* Diagnosis NIVIA on CPAP- Primary Obstructive sleep apnea (adult) (pediatric) PCOS (polycystic ovarian syndrome) Polycystic ovaries Class 3 severe obesity with serious comorbidity and body mass index (BMI) of 40.0 to 44.9 in adult, unspecified obesity type (HCC) documented in [facility]* Diagnosis Supervision of high risk , antepartum- Primary 7 weeks gestation of state, incidental with uncertain dates in first trimester Encounter for care in first trimester of first BMI 35.0-35.9,adult Body Mass Index 35.0-35.9, adult documented in this encounter [facility]* Diagnosis Encounter for supervision of normal first in first trimester (HCC)- Primary Supervision of normal first Recurrent urinary tract infection affecting in first trimester (HCC) documented in this encounter [facility]* Diagnosis Supervision of high risk , antepartum (HCC)- Primary Pulmonary embolism, unspecified chronicity, unspecified pulmonary embolism type, unspecified whether acute cor pulmonale present (HCC) Obesity in (HCC) Obesity complicating , childbirth, or the puerperium, unspecified as to episode of care or not applicable 13 weeks gestation of ([facility]) state, incidental documented in [facility]* Diagnosis Supervision of high risk , antepartum (HCC)- Primary Pulmonary embolism, unspecified chronicity, unspecified pulmonary embolism type, unspecified whether acute cor pulmonale present (HCC) Obesity in (HCC) Obesity complicating , childbirth, or the puerperium, unspecified as to episode of care or not applicable 13 weeks gestation of ([facility]) state, incidental Encounter for screening for malformation using ultrasound ([facility])- Primary 13 weeks gestation of ([facility]) state, incidental documented in this [facility]* Diagnosis Supervision of high risk , antepartum (HCC)- Primary Pulmonary embolism, unspecified chronicity, unspecified pulmonary embolism type, unspecified whether acute cor pulmonale present (HCC) Obesity in (HCC) Obesity complicating , childbirth, or the puerperium, unspecified as to episode of care or not applicable 13 weeks gestation of ([facility]) state, incidental Supervision of high risk , antepartum (HCC)- Primary 17 weeks gestation of ([facility]) state, incidental Obesity in (HCC) Obesity complicating , childbirth, or the puerperium, unspecified as to episode of care or not applicable NIVIA on CPAP Obstructive sleep apnea (adult) (pediatric) History of pulmonary embolism Personal history of pulmonary embolism [facility] Diagnosis Supervision of high risk , antepartum (HCC)- Primary Pulmonary embolism, unspecified chronicity, unspecified pulmonary embolism type, unspecified whether acute cor pulmonale present (HCC) Obesity in (HCC) Obesity complicating , childbirth, or the puerperium, unspecified as to episode of care or not applicable 13 weeks gestation of (HCC) state, incidental Obesity in (HCC)- Primary Obesity complicating , childbirth, or the puerperium, unspecified as to episode of care or not applicable Encounter for care in first trimester of first ([facility]) 7 weeks gestation of ([facility]) state, incidental documented in this [facility]* Diagnosis Supervision of high risk , antepartum (HCC)- Primary Pulmonary embolism, unspecified chronicity, unspecified pulmonary embolism type, unspecified whether acute cor pulmonale present (HCC) Obesity in (HCC) Obesity complicating , childbirth, or the puerperium, unspecified as to episode of care or not applicable 13 weeks gestation of ([facility]) state, incidental 20 weeks gestation of ([facility])- Primary state, incidental Supervision of high risk , antepartum (HCC) Obesity in (HCC) Obesity complicating , childbirth, or the puerperium, unspecified as to episode of care or not applicable Diet controlled gestational diabetes mellitus (GDM) in second trimester ([facility]) NIVIA on CPAP Obstructive sleep apnea (adult) (pediatric) History of pulmonary embolism Personal history of pulmonary embolism [facility]* Diagnosis Supervision of high risk , antepartum (HCC)- Primary Pulmonary embolism, unspecified chronicity, unspecified pulmonary embolism type, unspecified whether acute cor pulmonale present (HCC) Obesity in (HCC) Obesity complicating , childbirth, or the puerperium, unspecified as to episode of care or not applicable 13 weeks gestation of (HCC) state, incidental Supervision of high risk , antepartum (HCC)- Primary 23 weeks gestation of ([facility]) state, incidental headache in second trimester ([facility]) documented in this [facility]* Diagnosis Supervision of high risk , antepartum (HCC)- Primary Pulmonary embolism, unspecified chronicity, unspecified pulmonary embolism type, unspecified whether acute cor pulmonale present (HCC) Obesity in (HCC) Obesity complicating , childbirth, or the puerperium, unspecified as to episode of care or not applicable 13 weeks gestation of (HCC) state, incidental Supervision of high risk , antepartum (HCC)- Primary 24 weeks gestation of (HCC) state, incidental Obesity in (HCC) Obesity complicating , childbirth, or the puerperium, unspecified as to episode of care or not applicable Elevated hemoglobin A1c Other abnormal blood chemistry headache in second trimester (HCC) History of pulmonary embolism Personal history of pulmonary embolism * Assessment & Plan Note - Yasmin Delvalle MD - 10/26/2024 3:08 PM EDT Associated Problem(s): Supervision of high risk , antepartum (HCC) Orders: SYPHILIS TREPONEMAL W/REFLEX; Future ANEMIA REFLEX PANEL; Future COMPLETE BLOOD COUNT; Future COMPREHENSIVE METABOLIC PANEL; Future PROTEIN / CREATININE RATIO; Future * Assessment & Plan Note - Yasmin Delvalle MD - 10/26/2024 3:08 PM EDT Associated Problem(s): Obesity in (HCC) Orders: COMPLETE BLOOD COUNT; Future COMPREHENSIVE METABOLIC PANEL; Future PROTEIN / CREATININE RATIO; Future * Assessment & Plan Note - Yasmin Delvalle MD - 10/26/2024 3:08 PM EDT Associated Problem(s): Elevated hemoglobin A1c GDM FBS 86-95 feels like good control since watching these Orders: COMPLETE BLOOD COUNT; Future COMPREHENSIVE METABOLIC PANEL; Future PROTEIN / CREATININE RATIO; Future documented in [facility]* Diagnosis Supervision of high risk , antepartum (HCC)- Primary Pulmonary embolism, unspecified chronicity, unspecified pulmonary embolism type, unspecified whether acute cor pulmonale present (HCC) Obesity in (HCC) Obesity complicating , childbirth, or the puerperium, unspecified as to episode of care or not applicable 13 weeks gestation of ([facility]) state, incidental Supervision of high risk , antepartum ([facility])- Primary 24 weeks gestation of ([facility]) state, incidental Obesity in ([facility]) Obesity complicating , childbirth, or the puerperium, unspecified as to episode of care or not applicable Elevated hemoglobin A1c Other abnormal blood chemistry headache in second trimester ([facility]) History of pulmonary embolism Personal history of pulmonary embolism Supervision of high risk , antepartum ([facility])- Primary Obesity in ([facility]) Obesity complicating , childbirth, or the puerperium, unspecified as to episode of care or not applicable Diet controlled gestational diabetes mellitus (GDM) in second trimester ([facility]) documented in [facility]* Diagnosis Supervision of high risk , antepartum ([facility])- Primary Pulmonary embolism, unspecified chronicity, unspecified pulmonary embolism type, unspecified whether acute cor pulmonale present ([facility]) Obesity in ([facility]) Obesity complicating , childbirth, or the puerperium, unspecified as to episode of care or not applicable 13 weeks gestation of ([facility]) state, incidental Supervision of high risk , antepartum ([facility])- Primary 24 weeks gestation of ([facility]) state, incidental Obesity in ([facility]) Obesity complicating , childbirth, or the puerperium, unspecified as to episode of care or not applicable Elevated hemoglobin A1c Other abnormal blood chemistry headache in second trimester ([facility]) History of pulmonary embolism Personal history of pulmonary embolism 28 weeks gestation of ([facility])- Primary state, incidental Obesity in ([facility]) Obesity complicating , childbirth, or the puerperium, unspecified as to episode of care or not applicable Suspected problem with growth not found [facility] Diagnosis Supervision of high risk , antepartum ([facility])- Primary Pulmonary embolism, unspecified chronicity, unspecified pulmonary embolism type, unspecified whether acute cor pulmonale present (HCC) Obesity in ([facility]) Obesity complicating , childbirth, or the puerperium, unspecified as to episode of care or not applicable 13 weeks gestation of ([facility]) state, incidental Supervision of high risk , antepartum ([facility])- Primary 24 weeks gestation of ([facility]) state, incidental Obesity in (HCC) Obesity complicating , childbirth, or the puerperium, unspecified as to episode of care or not applicable Elevated hemoglobin A1c Other abnormal blood chemistry headache in second trimester ([facility]) History of pulmonary embolism Personal history of pulmonary embolism Supervision of high risk , antepartum ([facility])- Primary 30 weeks gestation of ([facility]) state, incidental Obesity in ([facility]) Obesity complicating , childbirth, or the puerperium, unspecified as to episode of care or not applicable Diet controlled gestational diabetes mellitus (GDM) in second trimester ([facility]) Antepartum anemia complicating in third trimester ([facility]) Elevated hemoglobin A1c Other abnormal blood chemistry History of pulmonary embolism Personal history of pulmonary embolism NIVIA on CPAP Obstructive sleep apnea (adult) (pediatric) documented in [facility]* Diagnosis Supervision of high risk , antepartum ([facility])- Primary Pulmonary embolism, unspecified chronicity, unspecified pulmonary embolism type, unspecified whether acute cor pulmonale present ([facility]) Obesity in ([facility]) Obesity complicating , childbirth, or the puerperium, unspecified as to episode of care or not applicable 13 weeks gestation of ([facility]) state, incidental Supervision of high risk , antepartum ([facility])- Primary 24 weeks gestation of ([facility]) state, incidental Obesity in ([facility]) Obesity complicating , childbirth, or the puerperium, unspecified as to episode of care or not applicable Elevated hemoglobin A1c Other abnormal blood chemistry headache in second trimester ([facility]) History of pulmonary embolism Personal history of pulmonary embolism Supervision of high risk , antepartum ([facility])- Primary Obesity in ([facility]) Obesity complicating , childbirth, or the puerperium, unspecified as to episode of care or not applicable Diet controlled gestational diabetes mellitus (GDM) in third trimester ([facility]) 32 weeks gestation of ([facility]) state, incidental documented in [facility]* Diagnosis Supervision of high risk , antepartum ([facility])- Primary Pulmonary embolism, unspecified chronicity, unspecified pulmonary embolism type, unspecified whether acute cor pulmonale present (HCC) Obesity in (HCC) Obesity complicating , childbirth, or the puerperium, unspecified as to episode of care or not applicable 13 weeks gestation of (HCC) state, incidental Supervision of high risk , antepartum (HCC)- Primary 24 weeks gestation of ([facility]) state, incidental Obesity in (HCC) Obesity complicating , childbirth, or the puerperium, unspecified as to episode of care or not applicable Elevated hemoglobin A1c Other abnormal blood chemistry headache in second trimester ([facility]) History of pulmonary embolism Personal history of pulmonary embolism 20 weeks gestation of ([facility]) state, incidental Supervision of high risk , antepartum ([facility]) Obesity in (HCC) Obesity complicating , childbirth, or the puerperium, unspecified as to episode of care or not applicable Diet controlled gestational diabetes mellitus (GDM) in second trimester ([facility]) [facility] Diagnosis Supervision of high risk , antepartum (HCC)- Primary Pulmonary embolism, unspecified chronicity, unspecified pulmonary embolism type, unspecified whether acute cor pulmonale present (HCC) Obesity in (HCC) Obesity complicating , childbirth, or the puerperium, unspecified as to episode of care or not applicable 13 weeks gestation of ([facility]) state, incidental Supervision of high risk , antepartum (HCC)- Primary 24 weeks gestation of ([facility]) state, incidental Obesity in (HCC) Obesity complicating , childbirth, or the puerperium, unspecified as to episode of care or not applicable Elevated hemoglobin A1c Other abnormal blood chemistry headache in second trimester ([facility]) History of pulmonary embolism Personal history of pulmonary embolism Antepartum anemia complicating in third trimester ([facility])- Primary [facility] Dis[facility] instructionsAdditional Instructions Follow-up with primary care physician. Return back to the ED as symptoms change or worsen.[facility] Work Phone: Hospital Discharge instructionsAdditional Instructions follow up as scheduled or neededWDetw[facility] Work Phone: Reason for referral (narrative)No reason for referral information availableWDetwiler Memorial Hospital Work Phone: Reason for visit Narrative* Consult, Test, Treat (Routine) - Authorized Specialty Diagnoses / Procedures Referred By Staci simmons Referred To Contact Bricklayer / MEDICARE COORDINATOR Diagnoses NIVIA on CPAP OB Procedures OFFICE/OUTPATIENT ESTABLISHED HIGH MDM 40 MIN OFFICE/OUTPATIENT EST PT MAY NOT REQ PHYS/QHP EST [facility] OB Julia Hester, TAVON.MORTGAGE COUNSELOR [address] [place] [address] Phone: tel: fax: Citlaly Stuart MD [address] [place] [address] Phone: tel: fax: Referral ID Status Reason Start Date Expiration Date V isits Requested Visits Authorized [id number] Authorized 09/06/2024 04/12/2025 99 99 [facility] Summary Purpose Family History No Family History Records Found Brother (s) Status:Active Comments:1. Father Status:Active Comments:1965 Grzegorz; CIARAs Mother Status:Active Comments:. 1961 ; Jena Carr; DM2 Sister (s) Status:Active Comments:3. Brother (s) Status:Active Comments:1. Father Status:Active Comments:1965 Grzegorz; DVTs Mother Status:Active Comments:b. 1961 ; Jena Carr; DM2 Sister (s) Status:Active Comments:3. Brother (s) Status:Active Comments:1. Father Status:Active Comments:1965 Grzegorz; DVTs Mother Status:Active Comments:. 1961 ; Jena Carr; DM2 Sister (s) Status:Active Comments:3. Advance Directives No Advanced Directives Records Found Advance Directive Response Recorded Date/ Time Living Will No March 06 10:34am Power of Documentation Coordinator No March 06, 2020 10:34am Advance Directive Response Recorded Date/ Time Do you have a Healthcare Power of Documentation Coordinator? No October 21, 2024 3:42pm Reason for Referral Specialty Diagnoses / Procedures Referred By Staci simmons Referred To Contact Diagnoses NIVIA (obstructive sleep apnea) Class 3 severe obesity with serious comorbidity and body mass index (BMI) of 40.0 to 44.9 in adult, unspecified obesity type (HCC) Renetta Cabrera APRN.MORTGAGE COUNSELOR [address] [place] [address] Referral ID Status Reason Start Date Expiration Date Visits Re quested Visits Authorized [id number] Closed 1 1 Chief Complaint and Reason for Visit Chief Complaint Admit Date MIGRAINE October 21, 2024 12:2 4pm Chief Complaint Admit Date MIGRAINE October 21, 2024 12:2 4pm R/O ROM December 26, 2024 2:20pm Additional Source Comments INFORMATION SOURCE (unrecogn ized section and content) DATE CREATED AUTHOR 03/22/2020 [facility] DATE CREATED AUTHOR AUTHOR'S ORGANIZ ATION 06/13/2020 [facility] ([place]) DATE CREATED AUTHOR AUTHOR'S ORGANIZ ATION 11/06/2022 [facility] DATE CREATED AUTHOR AUTHOR'S ORGANIZ ATION 01/18/2024 [facility] DATE CREATED AUTHOR AUTHOR'S ORGANIZ ATION 02/07/2024 [facility] DATE CREATED AUTHOR AUTHOR'S ORGANIZ ATION 07/25/2024 [facility] DATE CREATED AUTHOR AUTHOR'S ORGANIZ ATION 01/29/2025 [facility] DATE CREATED AUTHOR AUTHOR'S ORGANIZ ATION 01/31/2025 [facility] Source Comments (unrecognize d section and content) In the event this informatio n is protected by the Federal Confidentiality of Alcohol and Drug Abuse Patient Records regulations: The Federal rules restrict any use of the information to criminally investigate or prosecute any alcohol or drug abuse patient.[facility] HospitalIn the event this information is protected by the Federal Confidentiality of Alcohol and Drug Abuse Patient Records regulations: The Federal rules restrict any use of the information to criminally investigate or prosecute any alcohol or drug abuse patient.[facility] the event this information is protected by the Federal Confidentiality of Alcohol and Drug Abuse Patient Records regulations: The Federal rules restrict any use of the information to criminally investigate or prosecute any alcohol or drug abuse patient.[facility] HospitalIn the event this information is protected by the Federal Confidentiality of Alcohol and Drug Abuse Patient Records regulations: The Federal rules restrict any use of the information to criminally investigate or prosecute any alcohol or drug abuse patient.[facility] HospitalIn the event this information is protected by the Federal Confidentiality of Alcohol and Drug Abuse Patient Records regulations: The Federal rules restrict any use of the information to criminally investigate or prosecute any alcohol or drug abuse patient.[facility] HospitalIn the event this information is protected by the Federal Confidentiality of Alcohol and Drug Abuse Patient Records regulations: The Federal rules restrict any use of the information to criminally investigate or prosecute any alcohol or drug abuse patient.[facility] HospitalIn the event this information is protected by the Federal Confidentiality of Alcohol and Drug Abuse Patient Records regulations: The Federal rules restrict any use of the information to criminally investigate or prosecute any alcohol or drug abuse patient.[facility] HospitalIn the event this information is protected by the Federal Confidentiality of Alcohol and Drug Abuse Patient Records regulations: The Federal rules restrict any use of the information to criminally investigate or prosecute any alcohol or drug abuse patient.[facility] HospitalIn the event this information is protected by the Federal Confidentiality of Alcohol and Drug Abuse Patient Records regulations: The Federal rules restrict any use of the information to criminally investigate or prosecute any alcohol or drug abuse patient.[facility] HospitalIn the event this information is protected by the Federal Confidentiality of Alcohol and Drug Abuse Patient Records regulations: The Federal rules restrict any use of the information to criminally investigate or prosecute any alcohol or drug abuse patient.[facility] HospitalIn the event this information is protected by the Federal Confidentiality of Alcohol and Drug Abuse Patient Records regulations: The Federal rules restrict any use of the information to criminally investigate or prosecute any alcohol or drug abuse patient.[facility] HospitalIn the event this information is protected by the Federal Confidentiality of Alcohol and Drug Abuse Patient Records regulations: The Federal rules restrict any use of the information to criminally investigate or prosecute any alcohol or drug abuse patient.[facility] HospitalIn the event this information is protected by the Federal Confidentiality of Alcohol and Drug Abuse Patient Records regulations: The Federal rules restrict any use of the information to criminally investigate or prosecute any alcohol or drug abuse patient.[facility] HospitalIn the event this information is protected by the Federal Confidentiality of Alcohol and Drug Abuse Patient Records regulations: The Federal rules restrict any use of the information to criminally investigate or prosecute any alcohol or drug abuse patient.[facility] HospitalIn the event this information is protected by the Federal Confidentiality of Alcohol and Drug Abuse Patient Records regulations: The Federal rules restrict any use of the information to criminally investigate or prosecute any alcohol or drug abuse patient.[facility] HospitalIn the event this information is protected by the Federal Confidentiality of Alcohol and Drug Abuse Patient Records regulations: The Federal rules restrict any use of the information to criminally investigate or prosecute any alcohol or drug abuse patient.[facility] HospitalIn the event this information is protected by the Federal Confidentiality of Alcohol and Drug Abuse Patient Records regulations: The Federal rules restrict any use of the information to criminally investigate or prosecute any alcohol or drug abuse patient.[facility] HospitalIn the event this information is protected by the Federal Confidentiality of Alcohol and Drug Abuse Patient Records regulations: The Federal rules restrict any use of the information to criminally investigate or prosecute any alcohol or drug abuse patient.[facility] HospitalIn the event this information is protected by the Federal Confidentiality of Alcohol and Drug Abuse Patient Records regulations: The Federal rules restrict any use of the information to criminally investigate or prosecute any alcohol or drug abuse patient.[facility] HospitalIn the event this information is protected by the Federal Confidentiality of Alcohol and Drug Abuse Patient Records regulations: The Federal rules restrict any use of the information to criminally investigate or prosecute any alcohol or drug abuse patient.[facility] HospitalIn the event this information is protected by the Federal Confidentiality of Alcohol and Drug Abuse Patient Records regulations: The Federal rules restrict any use of the information to criminally investigate or prosecute any alcohol or drug abuse patient.[facility] HospitalIn the event this information is protected by the Federal Confidentiality of Alcohol and Drug Abuse Patient Records regulations: The Federal rules restrict any use of the information to criminally investigate or prosecute any alcohol or drug abuse patient.[facility] HospitalIn the event this information is protected by the Federal Confidentiality of Alcohol and Drug Abuse Patient Records regulations: The Federal rules restrict any use of the information to criminally investigate or prosecute any alcohol or drug abuse patient.[facility] HospitalIn the event this information is protected by the Federal Confidentiality of Alcohol and Drug Abuse Patient Records regulations: The Federal rules restrict any use of the information to criminally investigate or prosecute any alcohol or drug abuse patient.[facility] HospitalIn the event this information is protected by the Federal Confidentiality of Alcohol and Drug Abuse Patient Records regulations: The Federal rules restrict any use of the information to criminally investigate or prosecute any alcohol or drug abuse patient.[facility] HospitalIn the event this information is protected by the Federal Confidentiality of Alcohol and Drug Abuse Patient Records regulations: The Federal rules restrict any use of the information to criminally investigate or prosecute any alcohol or drug abuse patient.[facility] HospitalIn the event this information is protected by the Federal Confidentiality of Alcohol and Drug Abuse Patient Records regulations: The Federal rules restrict any use of the information to criminally investigate or prosecute any alcohol or drug abuse patient.[facility] HospitalIn the event this information is protected by the Federal Confidentiality of Alcohol and Drug Abuse Patient Records regulations: The Federal rules restrict any use of the information to criminally investigate or prosecute any alcohol or drug abuse patient.[facility] HospitalIn the event this information is protected by the Federal Confidentiality of Alcohol and Drug Abuse Patient Records regulations: The Federal rules restrict any use of the information to criminally investigate or prosecute any alcohol or drug abuse patient.[facility] HospitalIn the event this information is protected by the Federal Confidentiality of Alcohol and Drug Abuse Patient Records regulations: The Federal rules restrict any use of the information to criminally investigate or prosecute any alcohol or drug abuse patient.[facility] HospitalIn the event this information is protected by the Federal Confidentiality of Alcohol and Drug Abuse Patient Records regulations: The Federal rules restrict any use of the information to criminally investigate or prosecute any alcohol or drug abuse patient.[facility] HospitalIn the event this information is protected by the Federal Confidentiality of Alcohol and Drug Abuse Patient Records regulations: The Federal rules restrict any use of the information to criminally investigate or prosecute any alcohol or drug abuse patient.[facility] HospitalIn the event this information is protected by the Federal Confidentiality of Alcohol and Drug Abuse Patient Records regulations: The Federal rules restrict any use of the information to criminally investigate or prosecute any alcohol or drug abuse patient.[facility] HospitalIn the event this information is protected by the Federal Confidentiality of Alcohol and Drug Abuse Patient Records regulations: The Federal rules restrict any use of the information to criminally investigate or prosecute any alcohol or drug abuse patient.[facility] HospitalIn the event this information is protected by the Federal Confidentiality of Alcohol and Drug Abuse Patient Records regulations: The Federal rules restrict any use of the information to criminally investigate or prosecute any alcohol or drug abuse patient.[facility] HospitalIn the event this information is protected by the Federal Confidentiality of Alcohol and Drug Abuse Patient Records regulations: The Federal rules restrict any use of the information to criminally investigate or prosecute any alcohol or drug abuse patient.[facility] HospitalIn the event this information is protected by the Federal Confidentiality of Alcohol and Drug Abuse Patient Records regulations: The Federal rules restrict any use of the information to criminally investigate or prosecute any alcohol or drug abuse patient.[facility] HospitalIn the event this information is protected by the Federal Confidentiality of Alcohol and Drug Abuse Patient Records regulations: The Federal rules restrict any use of the information to criminally investigate or prosecute any alcohol or drug abuse patient.[facility] HospitalIn the event this information is protected by the Federal Confidentiality of Alcohol and Drug Abuse Patient Records regulations: The Federal rules restrict any use of the information to criminally investigate or prosecute any alcohol or drug abuse patient.[facility] HospitalIn the event this information is protected by the Federal Confidentiality of Alcohol and Drug Abuse Patient Records regulations: The Federal rules restrict any use of the information to criminally investigate or prosecute any alcohol or drug abuse patient.[facility] HospitalIn the event this information is protected by the Federal Confidentiality of Alcohol and Drug Abuse Patient Records regulations: The Federal rules restrict any use of the information to criminally investigate or prosecute any alcohol or drug abuse patient.[facility] HospitalIn the event this information is protected by the Federal Confidentiality of Alcohol and Drug Abuse Patient Records regulations: The Federal rules restrict any use of the information to criminally investigate or prosecute any alcohol or drug abuse patient.[facility] HospitalIn the event this information is protected by the Federal Confidentiality of Alcohol and Drug Abuse Patient Records regulations: The Federal rules restrict any use of the information to criminally investigate or prosecute any alcohol or drug abuse patient.[facility] HospitalIn the event this information is protected by the Federal Confidentiality of Alcohol and Drug Abuse Patient Records regulations: The Federal rules restrict any use of the information to criminally investigate or prosecute any alcohol or drug abuse patient.[facility] HospitalIn the event this information is protected by the Federal Confidentiality of Alcohol and Drug Abuse Patient Records regulations: The Federal rules restrict any use of the information to criminally investigate or prosecute any alcohol or drug abuse patient.[facility] Care Teams (unrecognized sec tion and content) Nocturnist Relationship Specialty Start Date End Date [facility] PCP - General 11/26/20 Nocturnist Relationship Specialty Start Date End Date [facility] PCP - General 11/26/20 Team Status: Active Member Role Status Dates Dr. Tona Boggs MD Primary Care Provider Active Team Status: Inactive Member Role Status Dates Dr. Tona Boggs MD Primary Care Provider Active Dr. Armen Boggs MD Attending Provider Active Nocturnist Relationship Specialty Start Date End Date [facility] PCP - General 11/26/20 Nocturnist Relationship Specialty Start Date End Date [facility] PCP - General 11/26/20 Nocturnist Relationship Specialty Start Date End Date [facility] PCP - General 11/26/20 Nocturnist Relationship Specialty Start Date End Date [facility] PCP - General 11/26/20 Nocturnist Relationship Specialty Start Date End Date [facility] PCP - General 11/26/20 Nocturnist Relationship Specialty Start Date End Date [facility] PCP - General 11/26/20 Nocturnist Relationship Specialty Start Date End Date [facility] PCP - General 11/26/20 Nocturnist Relationship Specialty Start Date End Date [facility] PCP - General 11/26/20 Nocturnist Relationship Specialty Start Date End Date [facility] PCP - General 11/26/20 Nocturnist Relationship Specialty Start Date End Date [facility] PCP - General 11/26/20 Nocturnist Relationship Specialty Start Date End Date [facility] PCP - General 11/26/20 Nocturnist Relationship Specialty Start Date End Date Family [facility] PCP - General 11/26/20 Nocturnist Relationship Specialty Start Date End Date Family [facility] PCP - General 11/26/20 Nocturnist Relationship Specialty Start Date End Date Family [facility] PCP - General 11/26/20 Nocturnist Relationship Specialty Start Date End Date Family [facility] PCP - General 11/26/20 Nocturnist Relationship Specialty Start Date End Date Family [facility] PCP - General 11/26/20 Nocturnist Relationship Specialty Start Date End Date Family [facility] PCP - General 11/26/20 Nocturnist Relationship Specialty Start Date End Date Family [facility] PCP - General 11/26/20 Nocturnist Relationship Specialty Start Date End Date Family [facility] PCP - General 11/26/20 Nocturnist Relationship Specialty Start Date End Date Family [facility] PCP - General 11/26/20 Nocturnist Relationship Specialty Start Date End Date Family [facility] PCP - General 11/26/20 Nocturnist Relationship Specialty Start Date End Date Family [facility] PCP - General 11/26/20 Nocturnist Relationship Specialty Start Date End Date Family [facility] PCP - General 11/26/20 Nocturnist Relationship Specialty Start Date End Date Family [facility] PCP - General 11/26/20 Nocturnist Relationship Specialty Start Date End Date Family [facility] PCP - General 11/26/20 Nocturnist Relationship Specialty Start Date End Date Family [facility] PCP - General 11/26/20 Team Status: Active Member Role/Relationship Status Dates Dr. Blessing Pena MD Primary Care Provider Active Team Status: Inactive Member Role/Relationship Status Dates Dr. Aldo Rodriguez DO Emergency Provider Activ e Start: October 21, 2024 End: October 21, 2024 Dr. Blessing Pena MD Primary Care Provider Active Start: October 21, 2024 End: October 21, 2024 Nocturnist Relationship Specialty Start Date End Date Family [facility] PCP - General 11/26/20 Nocturnist Relationship Specialty Start Date End Date Family [facility] PCP - General 11/26/20 Nocturnist Relationship Specialty Start Date End Date Family [facility] PCP - General 11/26/20 Nocturnist Relationship Specialty Start Date End Date Family [facility] PCP - General 11/26/20 Nocturnist Relationship Specialty Start Date End Date Family [facility] PCP - General 11/26/20 Nocturnist Relationship Specialty Start Date End Date Edu [facility] PCP - General 11/26/20 Nocturnist Relationship Specialty Start Date End Date Edu [facility] PCP - General 11/26/20 Nocturnist Relationship Specialty Start Date End Date Edu [facility] PCP - General 11/26/20 Nocturnist Relationship Specialty Start Date End Date Edu [facility] PCP - General 11/26/20 Team Status: Inactive Member Role/Relationship Status Dates Dr. Aldo Rodriguez DO Attending Provider Activ e Start: October 21, 2024 End: October 21, 2024 Dr. Aldo Rodriguez DO Emergency Provider Activ e Start: October 21, 2024 End: October 21, 2024 Dr. Blessing Pena MD Primary Care Provider Active Start: October 21, 2024 End: October 21, 2024 Team Status: Inactive Member Role/Relationship Status Dates Dr. Blessing Pena MD Primary Care Provider Active Start: December 26, 2024 End: December 26, 2024 Dr. Lisandro Palencia DO Attending Provider Active Start: December 26, 2024 End: December 26, 2024 Dr. Lisandro Palencia DO Referring Provider Active Start: December 26, 2024 End: December 26, 2024 Nocturnist Relationship Specialty Start Date End Date [facility] - General 11/26/20 Nocturnist Relationship Specialty Start Date End Date Edu [facility] PCP - General 11/26/20 Reason for Visit (unrecogniz ed section and content) Reason Onset Date Comments Care 11/23/2024 Specialty Diagnoses / Procedures Referred By Staci simmons Referred To Contact Bricklayer / MEDICARE COORDINATOR Diagnoses NIVIA on CPAP OB Procedures OFFICE/OUTPATIENT ESTABLISHED HIGH MDM 40 MIN OFFICE/OUTPATIENT EST PT MAY NOT REQ PHYS/QHP EST WHI OB [place], Julia, FEDERAL APPELLATE CLERK.MORTGAGE COUNSELOR [address] [place] [address] Phone: tel: fax:[phone] Citlaly Stuart MD [address] [place] [place] [address] Phone: tel: fax: Referral ID Status Reason Start Date Expiration Date V isits Requested Visits Authorized [id number] Authorized 09/06/2024 04/12/2025 99 99 Reason Onset Date Comments Care 10/21/2024 Reason Onset Date Comments Care 09/06/2024 Reason Comments Weight Management Specialty Diagnoses / Procedures Referred By Contac t Referred To Contact [facility]MENT Diagnoses . Procedures . [facility] [address] [place] [address] [facility] [place] [address] Referral ID Status Reason Start Date Expiration Date V isits Requested Visits Authorized [id number] Closed Financial Clearance Required - Self Pay Patient Cleared - Qualified for [id number] 02/06/2024 05/03/2024 1 1 Specialty Diagnoses / Procedures Referred By Contac t Referred To Contact Gynecology / MEDICARE COORDINATOR Diagnoses Wgt Mgmt Procedures VIDEO EST WHI PATIENT Self Renetta Cabrera APRN.MORTGAGE COUNSELOR [address] [place] [address] Referral ID Status Reason Start Date Expiration Date V isits Requested Visits Authorized [id number] Closed Financial Clearance Required - Self Pay Clearance Not Met - Admin/Order Entry Administrator /Director Advise to Postpone/Heydi edule or Not Proceed Patient Cleared - Qualified for [id number] 01/27/2024 04/26/2024 1 1 Specialty Diagnoses / Procedures Referred By Contac t Referred To Contact [facility] Diagnoses Consult, Test, Treat Procedures CONSULT TO NUTRITION THERAPY All Medically Necessary Services Renetta Cabrera APRN.MORTGAGE COUNSELOR [address] [place] [address] [place] [address] Referral ID Status Reason Start Date Expiration Date Visits Requested Visits Authorized [id number] Authorized PCP Requested Referral Financial Clearance Required - Self Pay Patient Cleared - Qualified [id number] 08/28/2023 11/26/2023 99 99 Reason Comments Follow Up Weight Management Reason Comments Cough Patient stated that cough x 5 days. Patient stated that chest feels congested. OTC: Dayquil. Reason Comments Received Outside Medical Records Reason Comments Assessment Patient Education Specialty Diagnoses / Procedures Referred By Contac t Referred To Contact Nutrition Diagnoses NIVIA (obstructive sleep apnea) PCOS (polycystic ovarian syndrome) Circadian rhythm sleep disorder, shift work type Excessive daytime sleepiness Malaise and fatigue Class 3 severe obesity with serious comorbidity and body mass index (BMI) of 40.0 to 44.9 in adult, unspecified obesity type (HCC) Procedures CONSULT TO NUTRITION THERAPY Renetta Cabrera APRN.MORTGAGE COUNSELOR [address] [place] [address] [facility] [address] [place] [address] Referral ID Status Reason Start Date Expiration Date Visits Requested Visits Authorized [id number] Ref Not Required PCP Requested Referral 06/16/2023 06/15/2024 1 1 Reason Comments Yearly Exam Reason Comments Weight Management Reason Comments New Patient Evaluation Reason Comments Initial OB Visit Reason Comments Results Reason Onset Date Comments Care 08/09/2024 Referral ID Status Reason Start Date Expiration Date V isits Requested Visits Authorized [id number] Authorized 08/09/2024 04/12/2025 99 99 Reason Comments US Specialty Diagnoses / Procedures Referred By Contac t Referred To Contact [facility] Diagnoses Encounter for care in first trimester of first (HCC) 7 weeks gestation of (HCC) Procedures OBSTETRIC ULTRASOUND WHI US PREG UTERUS AFTER 1ST TRIMEST GESTATION Julia Hester APRN.MORTGAGE COUNSELOR [address] [place] [address] Phone: tel: fax: [address] [address] Referral ID Status Reason Start Date Expiration Date V isits Requested Visits Authorized [id number] Closed Auto-Generate d Referral 06/27/2024 06/27/2025 1 1 Reason Onset Date Comments Results 06/27/2024 Reason Comments US Specialty Diagnoses / Procedures Referred By Contac t Referred To Contact [facility] Diagnoses Encounter for care in first trimester of first (HCC) 7 weeks gestation of (HCC) Procedures OBSTETRIC ULTRASOUND WHI US PREG UTERUS AFTER 1ST TRIMEST GESTATION Julia Hester, TAVON.MORTGAGE COUNSELOR [address] [place] [address] Phone: tel: fax: [phone] [place] [address] Referral ID Status Reason Start Date Expiration Date V isits Requested Visits Authorized [id number] Closed Auto-Generate d Referral 06/27/2024 06/27/2025 1 1 Reason Onset Date Comments Care 09/28/2024 Specialty Diagnoses / Procedures Referred By Contac t Referred To Contact Bricklayer / MEDICARE COORDINATOR Diagnoses NIVIA on CPAP OB Procedures OFFICE/OUTPATIENT ESTABLISHED HIGH MDM 40 MIN OFFICE/OUTPATIENT EST PT MAY NOT REQ PHYS/QHP EST WHI OB Julia Hester, FEDERAL APPELLATE CLERK.MORTGAGE COUNSELOR [address] [place] [address] Phone: tel: fax:[phone] Citlaly Stuart MD [address] [place] [address] Phone: tel: fax: Specialty Diagnoses / Procedures Referred By Contac t Referred To Contact [facility] Diagnoses Obesity in (HCC) Procedures OBSTETRIC ULTRASOUND WHI US PREG UTERUS AFTER 1ST TRIMEST GESTATION Maryann Acosta MD [address] [place] [address] Phone: tel: fax: [address] [phone] Referral ID Status Reason Start Date Expiration Date V isits Requested Visits Authorized [id number] Closed Auto-Generate d Referral 09/28/2024 09/28/2025 1 1 Reason Onset Date Comments Care 12/06/2024 Reason Onset Date Comments Care 12/22/2024 Specialty Diagnoses / Procedures Referred By Contac t Referred To Contact [facility] Diagnoses 20 weeks gestation of (HCC) Supervision of high risk , antepartum (HCC) Obesity in (HCC) Diet controlled gestational diabetes mellitus (GDM) in second trimester (HCC) Procedures OBSTETRIC ULTRASOUND WHI US PREG UTERUS AFTER 1ST TRIMEST GESTATION Ashley Mishra, FEDERAL APPELLATE CLERK.CNM [address] [place] [address] Phone: tel: fax: [facility] [address] [place] [address] Referral ID Status Reason Start Date Expiration Date V isits Requested Visits Authorized [id number] Closed Auto-Generate d Referral 09/28/2024 09/28/2025 5 1 Reason Comments OB Leaking Fluid Goals (unrecognized section and content) Goals may be documented in a n alternate sectionGoals may be documented in an alternate sectionGoals may be documented in an alternate section FOR RECORDS PERTAINING TO PATIENTS WHO ARE OR HAVE BEEN ENROLLED IN A CHEMICAL DEPENDENCY/SUBSTANCEABUSE PROGRAM, SOME INFORMATION MAY BE OMITTED. This clinical summary was aggregated from multiple sources. Caution should be exercised in using it in the provision of clinical care. This summary normalizes information from multiple sources, and as a consequence, information in this document may materially change the coding, format and clinical context of patient data. In addition, data may be omitted in some cases. CLINICAL DECISIONS SHOULD BE BASED ON THE PRIMARY CLINICAL RECORDS. [employer] provides no warranty or guarantee of the accuracy or completeness of information in this document.
--- OUTSIDE RECORDS SUMMARY | 2025-01-31 19:31 | XMS RPT_ITS | CCD ---
Author Organization [facility] Inform ion Partnership [facility] Care Team Providers Care Life Sciences Teacher Name Role Phone Unavailable [facility] Provider Unavail able [facility] Primary Care Provider Unavail able DAIANA ESPOSITO Attending Unavaila ble VANNESA HOOD Attending Unavailable ALFRED HOOD C.N.PJuanjo Attending Unavailabl e ALFRED HOOD.N.PJuanjo Att[facility] Primary Care Provider Unavail able CL BLANC [...] MARION, Dr. Aquino Primary Care Provider FLAKITA [facility], RJ Almeida Unavailable [phone] ODESSA Unavailable Unavailable OLE BOGGS MD Unavailable AMANDA NEWTON Unavailable BLESSING PENA MD Unavailable JENA ELLSWORTH Unavailable Unavailable Elle CHASE MD Unavailable [phone] Dara Boggs Unavailable Unavailable Jane BOGGS [...] Ashley Attending Unavailable Mishra, Ashley Admitting Unavailable Pena, Blessing Primary Care Unavailable Mishra, Ashley Referring [...] JULIA Attending Unavailable RENETTA CABRERA Attending Unavailable [facility] Referring Glenny vailable MIR, JULIA Referring [...] Translations: [CHLORHEXIDINE] Drug Allergy 4 Itching [facility] Comment on above: CH (20 sources) Latex; Translations: [LATEX] Drug Allergy 5 Rash [facility] (3 sources) Hibiclens *ANTISEPTICS & DISINFECTANTS* 1 Eczema [facility] [place] [facility] (1 source) natural latex rubber Propensity to adverse reactions 5 Rash [facility] (1 source) Chlorhexidine Drug Allergy 5 [facility] (1 source) natural latex rubber Drug allergy (disorder) 5 [facility] Medications Current Medications Medication Drug Class(es) [...] PREP PADS) Indications: 20 weeks gestation of ([facility]) , Supervision of high risk , antepartum ([facility]) , Obesity in ([facility]) , Diet controlled gestational diabetes mellitus (GDM) in second trimester ([facility]) Use as directed to check glucose [...] Blood-Glucose Meter Indications: 20 weeks gestation of ([facility]) , Supervision of high risk , antepartum ([facility]) , Obesity in ([facility]) , Diet controlled gestational diabetes mellitus (GDM) in second trimester ([facility]) Use as directed to check glucose [...] 20 mg/ml oral solution (3 sources) Uncompetitive I-oztuqu-N-aspartate Receptor Antagonist, Sigma-1 Agonist Start: 04-20-2017 End: [...] Translations: [Antepartum anemia complicating in third trimester ([facility])] Onset: 11-27-2024 Chronic Other complications of (1 source) Urinary tract infection in ; Translations: [Unspecified infection of urinary tract in , first trimester] 07-14-2024 Episodic Other complications of (1 source) Unspecified infection of urinary tract in , first trimester; Translations: [Recurrent urinary tract infection affecting in first trimester ([facility])] Onset: 07-19-2024 Episodic Other complications of (2 sources) Headache; Translations: [Other specified related conditions, second trimester] 10-21-2024 Episodic Other complications of (1 source) Supervision of high risk , unspecified, unspecified trimester; Translations: [Supervision of high risk , antepartum ([facility])] Onset: 01-19-2025 Episodic Other congenital anomalies [...] by Dr. dr. davion rodriguez. fax #: [phone] and Address: [facility]. 05-30-2011 Unclassified (1 source) Other specified [...] 08-09-2024 Episodic Unclassified (1 source) 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 Onset: 12-18-2021 Unclassified (3 sources) Urinary Tract Problems - The urinary symptoms are described as painful urination, frequency, burning and nocturia. The symptoms have been occurring for 3 days. The urine is described as yellow (cloudy). There has been no associated fever. 01-23-2023 Unclassified (3 sources) Physical examination - The patient is here for a other ( [employer] ) physical. 11-14-2020 Unclassified (3 sources) Physical examination - Her last menstrual period date was 09/03/2020, regular. Note for Physical examination: Pt. is changing jobs and would like a physical for pre-employment. Pt. was diagnosed with PCOS and has lost weight and started taking care of herself. Pt. sees an Road Freight Brake Coupler for Paps and breast exams. 09-17-2020 Unclassified [...] is transitioning into care from a hospital ([facility] 07/[facility]/17 - 07/08/17 for PE.) and a [...] 01-30-2025 CNPN Telephone (OBGYWM) ---- LAURA CASTELLANOS ([id number]) [address] [facility] Date Time Provider Department 01/30/25 ASHLEY MISHRA During your visit today, we recorded the following information about you: Narciso Dunn RN 01/30/2025 10:27 AM Signed Ashley Mishra APRN.CNM to [facility] Ob-Inspector [employer] Pool 01/30/25 8:31 AM Result Note Labs [...] Status:Closed by NARCISO DUNN on 01/30/25 Normal [facility] CBC W Auto Differential pane l (Bld)on 01-27-2025 Basophils (Bld) [#/Vol] 10*3/uL Normal <0.11 C [facility] Comment on above: Order Comment: Speci men Type: BLOOD SPECIMEN [facility] Address: [address] [place] [address] Performed By: #### 7 3752-8, 06204-3, 6-4 #### [facility] CLIA [id number] [address] [place] [address] [place] Basophils/100 WBC (Bld) 0.2 % Normal C [facility] Comment on above: Order Comment: Speci men Type: BLOOD SPECIMEN [facility]ing Facility: [facility] Address: [address] [place] [address] Performed By: #### 7 3752-8, 03929-8, 6-4 #### [facility] CLIA [id number] [address] [place] [address] [place] Differential cell count method Nom (Bld) Auto Normal [facility] Comment on above: Order Comment: Speci men Type: BLOOD SPECIMEN [facility]ing [facility]: [facility] Address: [address] [place] [address] Performed By: #### 7 3752-8, 45856-8, 6-4 #### [facility] CLIA [id number] [address] [place] [address] [place] Eosinophils (Bld) [#/Vol] 0.05 10*3/uL Normal <0.46 [facility] Comment on above: Order Comment: Speci men Type: BLOOD SPECIMEN [facility] Address: [address] [place] [address] Performed By: #### 7 3752-8, 78159-4, 2275-4 #### [facility] CLIA [id number] [address] [place] [address] [place] Eosinophils/100 WBC (Bld) 0.4 % Normal [facility] Comment on above: Order Comment: Speci men Type: BLOOD SPECIMEN [facility] Address: [address] [place] [address] Performed By: #### 7 3752-8, 19021-7, 2275-4 #### [facility] CLIA [id number] [address] [place] [address] [place] Erythrocyte distribution width (RBC) [Ratio] 14.2 % Normal 11.5-15.0 [facility] Comment on above: Order Comment: Speci men Type: BLOOD SPECIMEN [facility] Address: [address] [place] [address] Performed By: #### 7 3752-8, 11923-2, 4 #### [facility] CLIA [id number] [address] [place] [address] [place] Hematocrit (Bld) [Volume fraction] 36.1 % Normal 36.0-46.0 [facility] Comment on above: Order Comment: Speci men Type: BLOOD SPECIMEN [facility] Address: [address] [place] [address] Performed By: #### 7 3752-8, 02642-6, 2275-4 #### [facility] CLIA [id number] [address] [place] [address] [place] Hemoglobin (Bld) [Mass/Vol] 11.9 g/dL Normal 11.5-15.5 [facility] Comment on above: Order Comment: Speci men Type: BLOOD SPECIMEN [facility] Address: [address] [place] [address] Performed By: #### 7 3752-8, 78718-3, 4 #### [facility] CLIA [id number] [address] [place] [address] [place] Immature granulocytes (Bld) [#/Vol] 0.07 10*3/uL Normal <0.10 [facility] Comment on above: Order Comment: Speci men Type: BLOOD SPECIMEN [facility] Address: [address] [place] [address] Performed By: #### 7 3752-8, 62297-6, 2275-07 #### [facility] CLIA [id number] [address] [place] [address] [place] Immature granulocytes/100 WBC (Bld) 0.6 % Normal [facility] Comment on above: Order Comment: Speci men Type: BLOOD SPECIMEN [facility] Address: [address] [place] [address] Performed By: #### 7 3752-8, 11242-3, 2275-07 #### [facility] CLIA [id number] [address] [place] [address] [place] Lymphocytes (Bld) [#/Vol] 1.61 10*3/uL Normal 1.00-4.00 [facility] Comment on above: Order Comment: Speci men Type: BLOOD SPECIMEN [facility] Address: [address] [place] [address] Performed By: #### 7 3752-8, 34232-8, 2275-4 #### [facility] CLIA [id number] [address] [place] [address] [place] Lymphocytes/100 WBC (Bld) 13.9 % Normal [facility] Comment on above: Order Comment: Speci men Type: BLOOD SPECIMEN [facility] Address: [address] [place] [address] Performed By: #### 7 3752-8, 53971-3, 2275-07 #### [facility] CLIA [id number] [address] [place] [address] [place] MCH (RBC) [Entitic mass] 29.1 pg Normal 26.0-34.0 [facility] Comment on above: Order Comment: Speci men Type: BLOOD SPECIMEN [facility] Address: [address] [place] [address] Performed By: #### 7 3752-8, 98068-6, 2275-07 #### [facility] CLIA [id number] [address] [place] [address] [place] MCHC (RBC) [Mass/Vol] 33.0 g/dL Normal 30.5-36.0 [facility] Comment on above: Order Comment: Speci men Type: BLOOD SPECIMEN [facility] Address: [address] [place] [address] Performed By: #### 7 3752-8, 62672-5, 2275-07 #### [facility] CLIA [id number] [address] [place], [place] [address] [place] MCV (RBC) [Entitic vol] 88.3 fL Normal 80.0-100.0 C [facility] Comment on above: Order Comment: Speci men Type: BLOOD SPECIMEN [facility] Address: [address] [place] [address] Performed By: #### 7 3752-8, 33144-6, 4 #### [facility] CLIA [id number] [address] [place] [address] [place] Monocytes (Bld) [#/Vol] 0.87 10*3/uL High <0.87 [facility] Comment on above: Order Comment: Speci men Type: BLOOD SPECIMEN [facility] Address: [address] [place] [address] Performed By: #### 7 3752-8, 40624-9, 4 #### [facility] CLIA [id number] [address] [place] [address] [place] Monocytes/100 WBC (Bld) 7.5 % Normal [facility] Comment on above: Order Comment: Speci men Type: BLOOD SPECIMEN [facility] Address: [address] [place] [address] Performed By: #### 7 3752-8, 62408-7, 4 #### [facility] CLIA [id number] [address] [place] [address] [place] Neutrophils (Bld) [#/Vol] 8.94 10*3/uL High 1.45-7.50 [facility] Comment on above: Order Comment: Speci men Type: BLOOD SPECIMEN [facility] Address: [address] [place] [address] Performed By: #### 7 3752-8, 68148-6, 2275-07 #### [facility] CLIA [id number] [address] [place] [address] [place] Neutrophils/100 WBC (Bld) 77.4 % Normal [facility] Comment on above: Order Comment: Speci men Type: BLOOD SPECIMEN [facility] Address: [address] [place] [address] Performed By: #### 7 3752-8, 22293-9, 2275-4 #### [facility] CLIA [id number] [address] [place] [address] [place] Nucleated RBC (Bld) [#/Vol] 10*3/uL Normal <0.01 [facility] Comment on above: Order Comment: Speci men Type: BLOOD SPECIMEN [facility] Address: [address] [place], [place] [address] Performed By: #### 7 3752-8, 71700-2, 2275-4 #### [facility] CLIA [id number] [address] [place], [place] [address] [place] Nucleated RBC/100 WBC (Bld) [Ratio] 0.0 /100 WBC Normal [facility] Comment on above: Order Comment: Speci men Type: BLOOD SPECIMEN [facility] Address: [address] [place] [address] Performed By: #### 7 3752-8, 47793-1, 2275-4 #### [facility] CLIA [id number] [address] [place], [place] [address] [place] Platelet mean volume (Bld) [Entitic vol] 12.3 fL Normal 9.0-12.7 [facility] Comment on above: Order Comment: Speci men Type: BLOOD SPECIMEN [facility] Address: [address] [place] [address] Performed By: #### 7 3752-8, 30699-4, 2275- #### [facility] CLIA [id number] [address] [place], [place] [address] [place] Platelets (Bld) [#/Vol] 290 10*3/uL Normal 150-400 [facility] Comment on above: Order Comment: Speci men Type: BLOOD SPECIMEN [facility] Address: [address] [place] [address] Performed By: #### 7 3752-8, 71381-4, 2275-4 #### [facility] CLIA [id number] [address] [place], [place] [address] [place] RBC (Bld) [#/Vol] 4.09 10*6/uL Normal 3.90-5.20 [facility] Comment on above: Order Comment: Speci men Type: BLOOD SPECIMEN [facility] Address: [address] [place] [address] Performed By: #### 7 3752-8, 59709-6, 2276-4 #### [facility] CLIA [id number] [address] [place] [address] [place] WBC (Bld) [#/Vol] 11.56 10*3/uL High 3.70-11.00 [facility] Comment on above: Order Comment: Speci men Type: BLOOD SPECIMEN [facility] Address: [address] [place] [address] Performed By: #### 7 3752-8, 26671-6, 6-4 #### [facility] CLIA [id number] [address] [place] [address] [place] Comprehensive metabolic 2000 panelon 01-27-2025 Albumin [Mass/Vol] 3.8 g/dL Low 3.9-4.9 [facility] Comment on above: Order Comment: Speci men Type: BLOOD SPECIMEN [facility] Address: [address] [place] [address] Performed By: #### 7 3752-8, 36310-3, 6-4 #### [facility] CLIA [id number] [address] [place] [address] [place] ALP [Catalytic activity/Vol] 94 U/L Normal 34-123 [facility] Comment on above: Order Comment: Speci men Type: BLOOD SPECIMEN [facility] Address: [address] [place] [address] Performed By: #### 7 3752-8, 91716-6, 6-4 #### [facility] CLIA [id number] [address] [place] [address] [place] ALT [Catalytic activity/Vol] 26 U/L Normal 7-38 [facility] Comment on above: Order Comment: Speci men Type: BLOOD SPECIMEN [facility] Address: [address] [place] [address] Performed By: #### 7 3752-8, 37845-1, 6-4 #### [facility] CLIA [id number] [address] [place] [address] [place] Anion gap [Moles/Vol] 15 mmol/L Normal 8-15 [facility] Comment on above: Order Comment: Speci men Type: BLOOD SPECIMEN [facility] Address: [address] [place] [address] Performed By: #### 7 3752-8, 07633-7, 2275-4 #### [facility] CLIA [id number] [address] [place] [address] [place] AST [Catalytic activity/Vol] 16 U/L Normal 13-35 [facility] Comment on above: Order Comment: Speci men Type: BLOOD SPECIMEN [facility] Address: [address] [place] [address] Performed By: #### 7 3752-8, 38470-0, 4 #### [facility] CLIA [id number] [address] [place] [address] [place] Bilirubin [Mass/Vol] 0.2 mg/dL Normal 0.2-1.3 [facility] Comment on above: Order Comment: Speci men Type: BLOOD SPECIMEN [facility] Address: [address] [place] [address] Performed By: #### 7 3752-8, 92910-1, 2275-4 #### [facility] CLIA [id number] [address] [place] [address] [place] Calcium [Mass/Vol] 9.7 mg/dL Normal 8.5-10.2 [facility] Comment on above: Order Comment: Speci men Type: BLOOD SPECIMEN [facility] Address: [address] [place] [address] Performed By: #### 7 3752-8, 85641-1, 4 #### [facility] CLIA [id number] [address] [place] [address] [place] Chloride [Moles/Vol] 104 mmol/L Normal 98-107 [facility] Comment on above: Order Comment: Speci men Type: BLOOD SPECIMEN [facility] Address: [address] [place] [address] Performed By: #### 7 3752-8, 77606-4, 2275-07 #### [facility] CLIA [id number] [address] [place] [address] [place] CO2 [Moles/Vol] 18 mmol/L Low 22-30 [facility] Comment on above: Order Comment: Speci men Type: BLOOD SPECIMEN [facility] Address: [address] [place] [address] Performed By: #### 7 3752-8, 94515-3, 2275-07 #### [facility] CLIA [id number] [address] [place] [address] [place] Creatinine [Mass/Vol] 0.53 mg/dL Low 0.58-0.96 [facility] Comment on above: Order Comment: Speci men Type: BLOOD SPECIMEN [facility] Address: [address] [place] [address] Performed By: #### 7 3752-8, 71561-9, 4 #### [facility] CLIA [id number] [address] [place], [place] [address] [place] eGFRcr SerPlBld CKD-EPI 2020 127 mL/min/1.73m??? Normal >=60 [facility] Comment on above: Order Comment: Romelia sanchez Type: BLOOD SPECIMEN [facility] Address: [address] [place] [address] Result Comment: Katerine mated Glomerular Filtration Rate [...] actual GFR. Performed By: #### 7 3752-8, 17251-7, 2276-4 #### [facility] CLIA [id number] [address] [place] [address] [place] Glucose [Mass/Vol] 83 mg/dL Normal 74-99 [facility] Comment on above: Order Comment: Romelia sanchez Type: BLOOD SPECIMEN [facility] Address: [address] [place] [address] Result Comment: The [place] [employer] (ADA) provides guidance for cutoff [...] Standards of Medical Care in Diabetes 2016, [place] [employer]. Diabetes Care. 2016.39(Suppl 1). Performed By: #### 7 3752-8, 27746-3, 6-4 #### [facility] CLIA [id number] [address] [place] [address] [place] Potassium [Moles/Vol] 3.9 mmol/L Normal 3.7-5.1 [facility] Comment on above: Order Comment: Speci men Type: BLOOD SPECIMEN [facility] Address: [address] [place] [address] Performed By: #### 7 3752-8, 08462-6, 6-4 #### [facility] CLIA [id number] [address] [place] [address] [place] Protein [Mass/Vol] 7.1 g/dL Normal 6.3-8.0 [facility] Comment on above: Order Comment: Speci men Type: BLOOD SPECIMEN [facility] Address: [address] [place] [address] Performed By: #### 7 3752-8, 95214-5, 6-4 #### [facility] CLIA [id number] [address] [place] [address] [place] Sodium [Moles/Vol] 137 mmol/L Normal 136-144 [facility] Comment on above: Order Comment: Speci men Type: BLOOD SPECIMEN [facility] Address: [address] [place] [address] Performed By: #### 7 3752-8, 00841-4, 6-4 #### [facility] CLIA [id number] [address] [place] [address] [place] Urea nitrogen [Mass/Vol] 13 mg/dL Normal 7-21 [facility] Comment on above: Order Comment: Speci men Type: BLOOD SPECIMEN [facility] Address: [address] [place] [address] Performed By: #### 7 3752-8, 56353-1, 6-4 #### [facility] CLIA [id number] [address] [place] [address] [place] Urate SerPl-mCncon 17- 5 Urate [Mass/Vol] 5.5 mg/dL Normal 2.5-6.6 [facility] Comment on above: Order Comment: Speci men Type: BLOOD SPECIMEN [facility] Address: [address] [place] [address] Performed By: #### 7 3752-8, 69605-5, 2276-4 #### [facility] CLIA [id number] [address] [place] [address] [place] ROUTINE, GROUP B ST REPTOCOCCUS BY PCRon 01-19-2025 ROUTINE, GROUP B STREPTOCOCCUS BY PCR Not detected Normal [facility] Comment on above: Performed By: #### 7 3752-8, 81926-7, 2276-4 #### [facility] CLIA [id number] [address] [place] [address] [facility] CNPNon 01-05-2025 CNPN Telephone (OBGYWM) ---- LAURA CASTELLANOS ([id number]) 1995 [facility] Date Time Provider Department 01/05/25 LISANDRO PALENCIA OBGYWLance During your visit today, we recorded the following information about you: Regina Benitez RN 01/05/2025 4:51 PM Signed 34w4d Received written order from [facility] for GDM program. Left detailed message for [...] - Fully Assessed Reason for Visit: Forms/letter [4301] Prescriptions as of 01/09/2025 - FERROUS SULFATE [...] Status:Closed by REGINA BENITEZ on 01/09/25 [facility] Ru[facility] Of Membraneson 12-26-2024 ROM Negative Normal Negative [facility]; [facility] Work Phone: Comment on above: Result Comment: Amni otic fluid not present indicates No Rupture of Membranes at time of specimen collection. Performed By: #### L 205.1000 #### [facility] [address] [place] [address]. [place], [address] [facility] 12-26-2024 [facility] Telephone (OBGYWM) ---- LAURA CASTELLANOS ([id number]) 1995 [address] [facility] Date Time Provider Department 12/26/24 LISANDRO PALENCIA [...] you like her seen here, DINH, or [facility] to rule out SROM? NIKHIL Bonilla [...] Status:Closed by CAT VILLANUEVA on 12/26/24 Normal [facility] OB Triage Physician Noteon 0 12-26-2024 OB Triage Physician Note [facility] Medical Records Department [address] [place] [address] OB Triage Physician Note 12/26/24 [id number] MR#: [id number] Acct: [id number] Name: LAURA CASTELLANOS Rep #: [id number] : 1995 29 From: Lisandro Palencia DO PCP: Dr. Blessing Pena MD Status:DEP CLI Y Location: [facility] HPI - General General Date of Admission: [...] DO; Dr. Blessing Pena MD Signed Normal [facility] Examination level ultrasound on 12-23-2024 [facility] Examination level ultrasound on 12-22-2024 Radiology Study observation (narrative) [facility] URINE OB DIP B/Oon Glucose Ql (U) Negative Neg mg/dL [facility] Protein.monoclonal (U) [Mass/Vol] Negative Neg mg/dL [facility] Examination level ultrasound on 11-25-2024 [facility] CBC W Auto Differential pane l (Bld)on 11-23-2024 Basophils (Bld) [#/Vol] 10*3/uL Normal <0.11 C [facility] Comment on above: Order Comment: Speci men Type: BLOOD SPECIMEN [facility] Facility[facility] Address: [address] [place] [address] Performed By: #### 5 7021-8 #### [facility] CLIA [id number] [address] [place] [address] [place] Basophils/100 WBC (Bld) 0.2 % Normal C [facility] Comment on above: Order Comment: Speci men Type: BLOOD SPECIMEN [facility]ing Facility: [facility] Address: [address] [place] [address] Performed By: #### 5 7021-8 #### [facility] CLIA [id number] [address] [place] [address] [place] Differential cell count method Nom (Bld) Auto Normal [facility] Comment on above: Order Comment: Speci men Type: BLOOD SPECIMEN [facility]ing [facility]: [facility] Address: [address] [place] [address] Performed By: #### 5 7021-8 #### [facility] CLIA [id number] [address] [place] [address] [place] Eosinophils (Bld) [#/Vol] 0.06 10*3/uL Normal <0.46 [facility] Comment on above: Order Comment: Speci men Type: BLOOD SPECIMEN [facility]ing Facility: [facility] Address: [address] [place] [address] Performed By: #### 5 7021-8 #### [facility] CLIA [id number] [address] [place] [address] [place] Eosinophils/100 WBC (Bld) 0.5 % Normal [facility] Comment on above: Order Comment: Speci men Type: BLOOD SPECIMEN [facility]ing Facility: [facility] Address: [address] [place] [address] Performed By: #### 5 7021-8 #### [facility] CLIA [id number] [address] [place] [address] [place] Erythrocyte distribution width (RBC) [Ratio] 13.9 % Normal 11.5-15.0 [facility] Comment on above: Order Comment: Speci men Type: BLOOD SPECIMEN [facility]: [facility] Address: [address] [place] [address] Performed By: #### 5 7021-8 #### [facility] CLIA [id number] [address] [place] [address] [place] Hematocrit (Bld) [Volume fraction] 33.2 % Low 36.0-46.0 [facility] Comment on above: Order Comment: Speci men Type: BLOOD SPECIMEN [facility] Address: [address] [place] [address] Performed By: #### 5 7021-8 #### [facility] CLIA [id number] [address] [place] [address] [place] Hemoglobin (Bld) [Mass/Vol] 10.7 g/dL Low 11.5-15.5 [facility] Comment on above: Order Comment: Speci men Type: BLOOD SPECIMEN [facility] Address: [address] [place] [address] Performed By: #### 5 7021-8 #### [facility] CLIA [id number] [address] [place] [address] [place] Immature granulocytes (Bld) [#/Vol] 0.05 10*3/uL Normal <0.10 [facility] Comment on above: Order Comment: Speci men Type: BLOOD SPECIMEN [facility] Address: [address] [place] [address] Performed By: #### 5 7021-8 #### [facility] CLIA [id number] [address] [place] [address] [place] Immature granulocytes/100 WBC (Bld) 0.4 % Normal [facility] Comment on above: Order Comment: Speci men Type: BLOOD SPECIMEN [facility] Address: [address] [place] [address] Performed By: #### 5 7021-8 #### [facility] CLIA [id number] [address] [place] [address] [place] Lymphocytes (Bld) [#/Vol] 1.68 10*3/uL Normal 1.00-4.00 [facility] Comment on above: Order Comment: Speci men Type: BLOOD SPECIMEN [facility] Address: [address] [place] [address] Performed By: #### 5 7021-8 #### [facility] CLIA [id number] [address] [place] [address] [place] Lymphocytes/100 WBC (Bld) 13.4 % Normal [facility] Comment on above: Order Comment: Speci men Type: BLOOD SPECIMEN [facility] Address: [address] [place] [address] Performed By: #### 5 7021-8 #### [facility] CLIA [id number] [address] [place] [address] [place] MCH (RBC) [Entitic mass] 28.1 pg Normal 26.0-34.0 [facility] Comment on above: Order Comment: Speci men Type: BLOOD SPECIMEN [facility] Address: [address] [place] [address] Performed By: #### 5 7021-8 #### [facility] CLIA [id number] [address] [place] [address] [place] MCHC (RBC) [Mass/Vol] 32.2 g/dL Normal 30.5-36.0 [facility] Comment on above: Order Comment: Speci men Type: BLOOD SPECIMEN [facility] Address: [address] [place] [address] Performed By: #### 5 7021-8 #### [facility] CLIA [id number] [address] [place] [address] [place] MCV (RBC) [Entitic vol] 87.1 fL Normal 80.0-100.0 C [facility] Comment on above: Order Comment: Speci men Type: BLOOD SPECIMEN [facility] Address: [address] [place] [address] Performed By: #### 5 7021-8 #### [facility] CLIA [id number] [address] [place] [address] [place] Monocytes (Bld) [#/Vol] 0.92 10*3/uL High <0.87 [facility] Comment on above: Order Comment: Speci men Type: BLOOD SPECIMEN [facility] Address: [address] [place] [address] Performed By: #### 5 7021-8 #### [facility] CLIA [id number] [address] [place] [address] [place] Monocytes/100 WBC (Bld) 7.4 % Normal C [facility] Comment on above: Order Comment: Speci men Type: BLOOD SPECIMEN [facility] Address: [address] [place] [address] Performed By: #### 5 7021-8 #### [facility] CLIA [id number] [address] [place] [address] [place] Neutrophils (Bld) [#/Vol] 9.78 10*3/uL High 1.45-7.50 [facility] Comment on above: Order Comment: Speci men Type: BLOOD SPECIMEN [facility] Address: [address] [place] [address] Performed By: #### 5 7021-8 #### [facility] CLIA [id number] [address] [place] [address] [place] Neutrophils/100 WBC (Bld) 78.1 % Normal [facility] Comment on above: Order Comment: Speci men Type: BLOOD SPECIMEN [facility] Address: [address] [place] [address] Performed By: #### 5 7021-8 #### [facility] CLIA [id number] [address] [place] [address] [place] Nucleated RBC (Bld) [#/Vol] 10*3/uL Normal <0.01 [facility] Comment on above: Order Comment: Speci men Type: BLOOD SPECIMEN [facility] Address: [address] [place] [address] Performed By: #### 5 7021-8 #### [facility] CLIA [id number] [address] [place] [address] [place] Nucleated RBC/100 WBC (Bld) [Ratio] 0.0 /100 WBC Normal [facility] Comment on above: Order Comment: Speci men Type: BLOOD SPECIMEN [facility] Address: [address] [place] [address] Performed By: #### 5 7021-8 #### [facility] CLIA [id number] [address] [place] [address] [place] Platelet mean volume (Bld) [Entitic vol] 11.4 fL Normal 9.0-12.7 [facility] Comment on above: Order Comment: Speci men Type: BLOOD SPECIMEN [facility] Address: [address] [place] [address] Performed By: #### 5 7021-8 #### [facility] CLIA [id number] [address] [place] [address] [place] Platelets (Bld) [#/Vol] 259 10*3/uL Normal 150-400 [facility] Comment on above: Order Comment: Speci men Type: BLOOD SPECIMEN [facility] Address: [address] [place] [address] Performed By: #### 5 7021-8 #### [facility] CLIA [id number] [address] [place] [address] [place] RBC (Bld) [#/Vol] 3.81 10*6/uL Low 3.90-5.20 [facility] Comment on above: Order Comment: Speci men Type: BLOOD SPECIMEN [facility] Address: [address] [place] [address] Performed By: #### 5 7021-8 #### [facility] CLIA [id number] [address] [place] [address] [place] WBC (Bld) [#/Vol] 12.51 10*3/uL High 3.70-11.00 [facility] Comment on above: Order Comment: Speci men Type: BLOOD SPECIMEN [facility] Address: [address] [place] [address] Performed By: #### 5 7021-8 #### [facility] CLIA [id number] [address] [place], [place] [address] [place] Examination level ultrasound on 11-23-2024 Radiology Study observation (narrative) [facility] Ferritin [Mass/Vol] 15.5 ng/mL Normal 14.7-205.1 [facility] Comment on above: Order Comment: Speci men Type: BLOOD SPECIMEN [facility] Address: [address] [place] [address] Performed By: #### 7 3752-8, 33312-5, 6-4 #### [facility] CLIA [id number] [address] [place] [address] [place] Iron and Iron binding capaci ty panelon 11-23-2024 Iron [Mass/Vol] 47 ug/dL Normal 41-186 [facility] Comment on above: Order Comment: Speci men Type: BLOOD SPECIMEN [facility] Address: [address] [place] [address] Performed By: #### 7 3752-8, 58232-8, 4 #### [facility] CLIA [id number] [address] [place] [address] [place] Iron binding capacity [Mass/Vol] 534 ug/dL High 232-386 [facility] Comment on above: Order Comment: Speci men Type: BLOOD SPECIMEN [facility] Address: [address] [place] [address] Performed By: #### 7 3752-8, 30802-5, 4 #### [facility] CLIA [id number] [address] [place] [address] [place] Iron/TIBC [Molar ratio] 8.8 % Low 15.0-57.0 C [facility] Comment on above: Order Comment: Speci men Type: BLOOD SPECIMEN [facility] Address: [address] [place] [address] Performed By: #### 7 3752-8, 64075-9, 6-4 #### [facility] CLIA [id number] [address] [place] [address] [place] Reagin and Treponema pallidu m IgG and IgM [Interp]on 11-23-2024 T. pallidum IgG+IgM IA Ql (S) Non-Reactive Normal Nonreactive [facility] Comment on above: Order Comment: Romelia sanchez Type: BLOOD SPECIMEN [facility] Address: [address] [place] [address] Performed By: #### 7 3752-8, 23704-6, 2276-4 #### [facility] CLIA [id number] [address] [place] [address] [place] Reagin+T pallidum IgG+IgM Se rPl-Impon 11-23-2024 Reagin and Treponema pallidum IgG and IgM [Interp] Cannot exclude recent Treponemal infection if specimen collected within 7-10 days after appearance of suspect lesions or 2-3 weeks after an exposure. Clinical correlation is required. Normal [facility] Comment on above: Order Comment: Romelia sanchez Type: BLOOD SPECIMEN [facility] Address: [address] [place] [address] Performed By: #### 7 3752-8, 26677-6, 2275-4 #### [facility] CLIA [id number] [address] [place] [address] [place] CBC panel Auto (Bld)on 10-26 Erythrocyte distribution width (RBC) [Ratio] 13.7 % 11.5 - 15.0 % [facility] Hematocrit (Bld) [Volume fraction] 35 % Low 36.0 - 46.0 % [facility] Hemoglobin (Bld) [Mass/Vol] 11.7 g/dL 11.5 - 15.5 g/dL [facility] Interpretation and review of laboratory results Abnormal [facility] MCH (RBC) [Entitic mass] 28.5 pg 26.0 - 34.0 pg [facility] MCHC (RBC) [Mass/Vol] 33.4 g/dL 30.5 - 36.0 g/dL [facility] MCV (RBC) [Entitic vol] 85.2 fL 80.0 - 100.0 fL [facility] Nucleated RBC (Bld) [#/Vol] NINF [facility] Platelet mean volume (Bld) [Entitic vol] 11.1 fL 9.0 - 12.7 fL [facility] Platelets (Bld) [#/Vol] 289 10*3/uL [facility] RBC (Bld) [#/Vol] 4.11 10*6/uL 3.90 - 5.2 0 m/uL [facility] WBC (Bld) [#/Vol] 12.51 10*3/uL High [facility] Erythrocyte distribution width (RBC) [Ratio] 13.7 % Normal 11.5-15.0 [facility] Comment on above: Order Comment: Speci men Type: BLOOD SPECIMEN [facility] Address: [address] [place] [address] Performed By: #### 7 3752-8, 67545-5, 2275-4 #### [facility] CLIA [id number] [address] [place] [address] [place] Hematocrit (Bld) [Volume fraction] 35.0 % Low 36.0-46.0 [facility] Comment on above: Order Comment: Speci men Type: BLOOD SPECIMEN [facility] Address: [address] [place] [address] Performed By: #### 7 3752-8, 56950-3, 2275-4 #### [facility] CLIA [id number] [address] [place] [address] [place] Hemoglobin (Bld) [Mass/Vol] 11.7 g/dL Normal 11.5-15.5 [facility] Comment on above: Order Comment: Speci men Type: BLOOD SPECIMEN [facility] Address: [address] [place] [address] Performed By: #### 7 3752-8, 09623-4, 2275-4 #### [facility] CLIA [id number] [address] [place] [address] [place] MCH (RBC) [Entitic mass] 28.5 pg Normal 26.0-34.0 [facility] Comment on above: Order Comment: Speci men Type: BLOOD SPECIMEN [facility] Address: [address] [place] [address] Performed By: #### 7 3752-8, 83062-5, 4 #### [facility] CLIA [id number] [address] [place] [address] [place] MCHC (RBC) [Mass/Vol] 33.4 g/dL Normal 30.5-36.0 [facility] Comment on above: Order Comment: Speci men Type: BLOOD SPECIMEN [facility] Address: [address] [place] [address] Performed By: #### 7 3752-8, 29974-8, 4 #### [facility] CLIA [id number] [address] [place] [address] [place] MCV (RBC) [Entitic vol] 85.2 fL Normal 80.0-100.0 [facility] Comment on above: Order Comment: Speci men Type: BLOOD SPECIMEN [facility] Address: [address] [place] [address] Performed By: #### 7 3752-8, 24982-4, 2275-07 #### [facility] CLIA [id number] [address] [place] [address] [place] Nucleated RBC (Bld) [#/Vol] 10*3/uL Normal <0.01 [facility] Comment on above: Order Comment: Speci men Type: BLOOD SPECIMEN [facility] Address: [address] [place] [address] Performed By: #### 7 3752-8, 32538-5, 4 #### [facility] CLIA [id number] [address] [place] [address] [place] Platelet mean volume (Bld) [Entitic vol] 11.1 fL Normal 9.0-12.7 [facility] Comment on above: Order Comment: Speci men Type: BLOOD SPECIMEN [facility] Address: [address] [place] [address] Performed By: #### 7 3752-8, 16501-3, 6-4 #### [facility] CLIA [id number] [address] [place] [address] [place] Platelets (Bld) [#/Vol] 289 10*3/uL Normal 150-400 [facility] Comment on above: Order Comment: Speci men Type: BLOOD SPECIMEN [facility] Address: [address] [place] [address] Performed By: #### 7 3752-8, 01485-9, 2275-4 #### [facility] CLIA [id number] [address] [place] [address] [place] RBC (Bld) [#/Vol] 4.11 10*6/uL Normal 3.90-5.20 [facility] Comment on above: Order Comment: Speci men Type: BLOOD SPECIMEN [facility] Address: [address] [place] [address] Performed By: #### 7 3752-8, 59239-5, 4 #### [facility] CLIA [id number] [address] [place] [address] [place] WBC (Bld) [#/Vol] 12.51 10*3/uL High 3.70-11.00 [facility] Comment on above: Order Comment: Speci men Type: BLOOD SPECIMEN [facility] Address: [address] [place] [address] Performed By: #### 7 3752-8, 52415-3, 2275-4 #### [facility] CLIA [id number] [address] [place], [place] [address] [place] Comprehensive metabolic 2000 panelOrdered By: Mary Jo Blair on 10-26-2024 Albumin [Mass/Vol] 3.9 g/dL 3.9 - 4.9 g/dL [facility] ALP [Catalytic activity/Vol] 66 U/L 34 - 123 U/L [facility] ALT [Catalytic activity/Vol] 24 U/L 7 - 38 U/L [facility] Anion gap [Moles/Vol] 14 mmol/L 8 - 15 mmol/L [facility] AST [Catalytic activity/Vol] 12 U/L Low 13 - 35 U/L [facility] Bilirubin [Mass/Vol] 0.2 mg/dL 0.2 - 1.3 mg/dL [facility] Calcium [Mass/Vol] 10.1 mg/dL 8.5 - 10. 2 mg/dL [facility] Chloride [Moles/Vol] 101 mmol/L 98 - 107 mmol/L [facility] CO2 [Moles/Vol] 19 mmol/L Low 22 - 30 mmol/L [facility] Creatinine [Mass/Vol] 0.65 mg/dL 0.58 - 0.96 mg/dL [facility] GFR/1.73 sq M.predicted among non-blacks MDRD (S/P/Bld) [Vol rate/Area] 121 mL/min/{1.73_m2} - PINF [facility] Comment on above: Estimated Glomerular Filtration [...] [Mass/Vol] 79 mg/dL 74 - 99 mg/dL [facility] Comment on above: The [place] [employer] (ADA) provides guidance for [...] Standards of Medical Care in Diabetes 2016, [place] [employer]. Diabetes Care. 2016.39(Suppl 1). Interpretation and review of laboratory results Abnormal [facility] Potassium [Moles/Vol] 3.8 mmol/L 3.7 - 5.1 mmol/L [facility] Protein [Mass/Vol] 7.4 g/dL 6.3 - 8.0 g/dL [facility] Sodium [Moles/Vol] 134 mmol/L Low 136 - 144 mmol/L [facility] Urea nitrogen [Mass/Vol] 11 mg/dL 7 - 21 mg/dL [facility] Comprehensive metabolic 2000 panelon 10-26-2024 Albumin [Mass/Vol] 3.9 g/dL Normal 3.9-4.9 [facility] Comment on above: Order Comment: Romelia sanchez Type: BLOOD SPECIMEN [facility] Address: [address] [place] [address] Performed By: #### 7 3752-8, 09427-9, 2275-4 #### [facility] CLIA [id number] [address] [place] [address] [place] ALP [Catalytic activity/Vol] 66 U/L Normal 34-123 [facility] Comment on above: Order Comment: Romelia sanchez Type: BLOOD SPECIMEN [facility] Address: [address] [place] [address] Performed By: #### 7 3752-8, 59865-9, 2275-4 #### [facility] CLIA [id number] [address] [place] [address] [place] ALT [Catalytic activity/Vol] 24 U/L Normal 7-38 [facility] Comment on above: Order Comment: Hermiloi alura Type: BLOOD SPECIMEN [facility] Address: [address] [place] [address] Performed By: #### 7 3752-8, 42617-4, 2275-4 #### [facility] CLIA [id number] [address] [place] [address] [place] Anion gap [Moles/Vol] 14 mmol/L Normal 8-15 [facility] Comment on above: Order Comment: Speci men Type: BLOOD SPECIMEN [facility] Address: [address] [place] [address] Performed By: #### 7 3752-8, 30510-2, 2275-4 #### [facility] CLIA [id number] [address] [place] [address] [place] AST [Catalytic activity/Vol] 12 U/L Low 13-35 [facility] Comment on above: Order Comment: Speci men Type: BLOOD SPECIMEN [facility] Address: [address] [place] [address] Performed By: #### 7 3752-8, 46383-9, 4 #### [facility] CLIA [id number] [address] [place] [address] [place] Bilirubin [Mass/Vol] 0.2 mg/dL Normal 0.2-1.3 [facility] Comment on above: Order Comment: Speci men Type: BLOOD SPECIMEN [facility] Address: [address] [place] [address] Performed By: #### 7 3752-8, 10878-2, 4 #### [facility] CLIA [id number] [address] [place] [address] [place] Calcium [Mass/Vol] 10.1 mg/dL Normal 8.5-10.2 [facility] Comment on above: Order Comment: Speci men Type: BLOOD SPECIMEN [facility] Address: [address] [place] [address] Performed By: #### 7 3752-8, 25232-2, 2275-4 #### [facility] CLIA [id number] [address] [place] [address] [place] Chloride [Moles/Vol] 101 mmol/L Normal 98-107 [facility] Comment on above: Order Comment: Speci men Type: BLOOD SPECIMEN [facility] Address: [address] [place] [address] Performed By: #### 7 3752-8, 16501-0, 6-4 #### [facility] [facility] CLIA [id number] [address] [place] [address] [place] CO2 [Moles/Vol] 19 mmol/L Low 22-30 [facility] Comment on above: Order Comment: Speci men Type: BLOOD SPECIMEN [facility] Address: [address] [place] [address] Performed By: #### 7 3752-8, 29288-4, 6-4 #### [facility] CLIA [id number] [address] [place] [address] [place] Creatinine [Mass/Vol] 0.65 mg/dL Normal 0.58-0.96 [facility] Comment on above: Order Comment: Speci men Type: BLOOD SPECIMEN [facility]ing Facility: [facility] Address: [address] [place] [address] Performed By: #### 7 3752-8, 25000-1, 6-4 #### [facility] CLIA [id number] [address] [place] [address] [place] eGFRcr SerPlBld CKD-EPI 2020 121 mL/min/1.73m??? Normal >=60 [facility] Comment on above: Order Comment: Speci men Type: BLOOD SPECIMEN [facility]: [facility] Address: [address] [place] [address] Result Comment: Katerine mated Glomerular Filtration Rate [...] actual GFR. Performed By: #### 7 3752-8, 00641-1, 2275-4 #### [facility] CLIA [id number] [address] [place] [address] [place] Glucose [Mass/Vol] 79 mg/dL Normal 74-99 [facility] Comment on above: Order Comment: Romelia sanchez Type: BLOOD SPECIMEN [facility] Address: [address] [place] [address] Result Comment: The [place] Diabetes Association (ADA) provides guidance for cutoff [...] Standards of Medical Care in Diabetes 2016, [place] Diabetes Association. Diabetes Care. 2016.39(Suppl 1). Performed By: #### 7 3752-8, 05880-7, 4 #### [facility] CLIA [id number] [address] [place] [address] [place] Potassium [Moles/Vol] 3.8 mmol/L Normal 3.7-5.1 [facility] Comment on above: Order Comment: Romelia sanchez Type: BLOOD SPECIMEN [facility] Address: [address] [place] [address] Performed By: #### 7 3752-8, 89943-3, 4 #### [facility] CLIA [id number] [address] [place], [place] [address] [place] Protein [Mass/Vol] 7.4 g/dL Normal 6.3-8.0 [facility] Comment on above: Order Comment: Romelia sanchez Type: BLOOD SPECIMEN [facility] Address: [address] [place] [address] Performed By: #### 7 3752-8, 45949-0, 2275-4 #### [facility] CLIA [id number] [address] [place] [address] [place] Sodium [Moles/Vol] 134 mmol/L Low 136-144 [facility] Comment on above: Order Comment: Speci men Type: BLOOD SPECIMEN [facility] Address: [address] [place] [address] Performed By: #### 7 3752-8, 38922-5, 4 #### [facility] CLIA [id number] [address] [place] [address] [place] Urea nitrogen [Mass/Vol] 11 mg/dL Normal 7-21 [facility] Comment on above: Order Comment: Speci men Type: BLOOD SPECIMEN [facility] Address: [address] [place] [address] Performed By: #### 7 3752-8, 41907-1, 4 #### [facility] CLIA [id number] [address] [place] [address] [place] Prot/Creat Uron 10-26-2024 Protein/Creatinine (U) [Mass ratio] mg/g High <0.15 [facility] Comment on above: Order Comment: Speci men Type: BLOOD SPECIMEN [facility] Address: [address] [place] [address] Result Comment: Adul t Proteinuria Categories: <0.15 mg/mg is considered normal to mildly increased 0.15 - 0.50 mg/mg is considered moderately increased >0.50 mg/mg is considered severely increased KDIGO. (2013). KDIGO 2012 Clinical Practice Guideline for the Evaluation and Management of Chronic Kidney Disease. Official Journal of the International Society of Nephrology, 3(1), 1-150. Performed By: #### 7 3752-8, 84749-7, 2275-4 #### [facility] CLIA [id number] [address] [place], [place] [address] [place] Protein/Creatinine (U) [Mass ratio]on 10-26-2024 Creatinine (U) [Mass/Vol] 15.6 mg/dL Low 20.0-300.0 [facility] Comment on above: Order Comment: Speci men Type: BLOOD SPECIMEN [facility] Address: [address] [place] [address] Performed By: #### 7 3752-8, 47437-0, 2276-4 #### [facility] CLIA [id number] [address] [place] [address] [place] Protein (U) [Mass/Vol] mg/dL Normal 0-20 [facility] Comment on above: Order Comment: Speci men Type: BLOOD SPECIMEN [facility] Address: [address] [place] [address] Performed By: #### 7 3752-8, 64842-7, 2276-4 #### [facility] CLIA [id number] [address] [place] [address] [place] Emergency Department Summary on 10-21-2024 Emergency Department Summary [facility] Medical Records Department [address] [place] [id number] Emergency Department Summary 10/21/24 MR#: [id number] Acct: [id number] Name: LAURA CASTELLANOS Rep #: [id number] : 1995 29 From: Aldo Rodriguez DO [...] her . Patient was seen at the [facility] DIRECTOR office today in which they told her [...] some relief. Patient was seen at the GROUP ACCOUNT DIRECTOR office today in which they told her [...] Gregory (more content not included)... Normal Harjit [facility] Examination level ultrasound on 09-28-2024 Indication Detailed [...] 13 oz EFW by: Hadlock (HC-AC-FL) Extended Web Administrator 7.0 mm CM 4.3 mm 23% Nicolaides [...] normal LVOT view: normal 3-vessel view: normal 0-rnmkjc-lvkxrvx view: normal Heart / Thorax Situs: situs [...] By: Maryann Acosta M.D. MATERNAL MEDICINE [facility] Radiology Study observation (narrative) Justa askew [facility] Examination level ultrasound on 08-10-2024 Indication First trimester anatomic survey, Maternal obesity, BMI >35 Impression The patient is referred for a first trimester anatomy scan including nuchal translucency measurement as clinically indicated. - Single, live, intrauterine . - Mcconnico rump length measurement is consistent with the [...] view: normal 4-chamber view with color: normal 5-avpxej-ogvwrok view: normal Abdominal cord insertion: normal Stomach: [...] Ana Laura Dumont M.D. MATERNAL MEDICINE [facility] Examination level ultrasound on 08-09-2024 Radiology Study observation (narrative) [facility] Bacteria Ur Culton Bacteria identified Cx Nom (U) CULTURE, URINE: No growth (<1,000 CFU/ml) Normal [facility] Comment on above: Performed By: #### 6 30-4 #### [facility] CLIA [id number] [address] [place] [address] [place] [address] [place] CBC W Auto Differential pane l (Bld)on 07-19-2024 Basophils (Bld) [#/Vol] 10*3/uL Normal <0.11 [facility] Comment on above: Order Comment: Speci men Type: BLOOD SPECIMEN [facility] Address: [address] [place] [address] Performed By: #### 5 7021-8 #### [facility] CLIA [id number] [address] [place] [address] [place] Basophils/100 WBC (Bld) 0.1 % Normal [facility] Comment on above: Order Comment: Speci men Type: BLOOD SPECIMEN [facility] Address: [address] [place] [address] Performed By: #### 5 7021-8 #### [facility] CLIA [id number] [address] [place] [address] [place] Differential cell count method Nom (Bld) Auto Normal [facility] Comment on above: Order Comment: Speci men Type: BLOOD SPECIMEN [facility] Address: [address] [place] [address] Performed By: #### 5 7021-8 #### [facility] CLIA [id number] [address] [place] [address] [place] Eosinophils (Bld) [#/Vol] 0.08 10*3/uL Normal <0.46 [facility] Comment on above: Order Comment: Speci men Type: BLOOD SPECIMEN [facility] Address: [address] [place] [address] Performed By: #### 5 7021-8 #### [facility] CLIA [id number] [address] [place] [address] [place] Eosinophils/100 WBC (Bld) 1.0 % Normal [facility] Comment on above: Order Comment: Speci men Type: BLOOD SPECIMEN [facility] Address: [address] [place] [address] Performed By: #### 5 7021-8 #### [facility] CLIA [id number] [address] [place] [address] [place] Erythrocyte distribution width (RBC) [Ratio] 13.0 % Normal 11.5-15.0 [facility] Comment on above: Order Comment: Speci men Type: BLOOD SPECIMEN [facility] Address: [address] [place] [address] Performed By: #### 5 7021-8 #### [facility] CLIA [id number] [address] [place] [address] [place] Hematocrit (Bld) [Volume fraction] 37.3 % Normal 36.0-46.0 [facility] Comment on above: Order Comment: Speci men Type: BLOOD SPECIMEN [facility] Address: [address] [place] [address] Performed By: #### 5 7021-8 #### [facility] CLIA [id number] [address] [place] [address] [place] Hemoglobin (Bld) [Mass/Vol] 11.7 g/dL Normal 11.5-15.5 [facility] Comment on above: Order Comment: Speci men Type: BLOOD SPECIMEN [facility] Address: [address] [place] [address] Performed By: #### 5 7021-8 #### [facility] CLIA [id number] [address] [place] [address] [place] Immature granulocytes (Bld) [#/Vol] 0.03 10*3/uL Normal <0.10 [facility] Comment on above: Order Comment: Speci men Type: BLOOD SPECIMEN [facility] Address: [address] [place] [address] Performed By: #### 5 7021-8 #### [facility] CLIA [id number] [address] [place] [address] [place] Immature granulocytes/100 WBC (Bld) 0.4 % Normal [facility] Comment on above: Order Comment: Speci men Type: BLOOD SPECIMEN [facility] Address: [address] [place] [address] Performed By: #### 5 7021-8 #### [facility] CLIA [id number] [address] [place] [address] [place] Lymphocytes (Bld) [#/Vol] 1.60 10*3/uL Normal 1.00-4.00 [facility] Comment on above: Order Comment: Speci men Type: BLOOD SPECIMEN [facility] Address: [address] [place] [address] Performed By: #### 5 7021-8 #### [facility] CLIA [id number] [address] [place] [address] [place] Lymphocytes/100 WBC (Bld) 19.8 % Normal [facility] Comment on above: Order Comment: Speci men Type: BLOOD SPECIMEN [facility] Address: [address] [place] [address] Performed By: #### 5 7021-8 #### [facility] CLIA [id number] [address] [place] [address] [place] MCH (RBC) [Entitic mass] 27.5 pg Normal 26.0-34.0 [facility] Comment on above: Order Comment: Speci men Type: BLOOD SPECIMEN [facility] Address: [address] [place] [address] Performed By: #### 5 7021-8 #### [facility] CLIA [id number] [address] [place] [address] [place] MCHC (RBC) [Mass/Vol] 31.4 g/dL Normal 30.5-36.0 [facility] Comment on above: Order Comment: Speci men Type: BLOOD SPECIMEN [facility] Address: [address] [place] [address] Performed By: #### 5 7021-8 #### [facility] CLIA [id number] [address] [place] [address] [place] MCV (RBC) [Entitic vol] 87.6 fL Normal 80.0-100.0 [facility] Comment on above: Order Comment: Speci men Type: BLOOD SPECIMEN [facility] Address: [address] [place] [address] Performed By: #### 5 7021-8 #### [facility] CLIA [id number] [address] [place] [address] [place] Monocytes (Bld) [#/Vol] 0.50 10*3/uL Normal <0.87 [facility] Comment on above: Order Comment: Speci men Type: BLOOD SPECIMEN [facility] Address: [address] [place] [address] Performed By: #### 5 7021-8 #### [facility] CLIA [id number] [address] [place] [address] [place] Monocytes/100 WBC (Bld) 6.2 % Normal [facility] Comment on above: Order Comment: Speci men Type: BLOOD SPECIMEN [facility] Address: [address] [place] [address] Performed By: #### 5 7021-8 #### [facility] CLIA [id number] [address] [place] [address] [place] Neutrophils (Bld) [#/Vol] 5.85 10*3/uL Normal 1.45-7.50 [facility] Comment on above: Order Comment: Speci men Type: BLOOD SPECIMEN [facility] Address: [address] [place] [address] Performed By: #### 5 7021-8 #### [facility] CLIA [id number] [address] [place] [address] [place] Neutrophils/100 WBC (Bld) 72.5 % Normal [facility] Comment on above: Order Comment: Speci men Type: BLOOD SPECIMEN [facility] Address: [address] [place] [address] Performed By: #### 5 7021-8 #### [facility] CLIA [id number] [address] [place] [address] [place] Nucleated RBC (Bld) [#/Vol] 10*3/uL Normal <0.01 [facility] Comment on above: Order Comment: Speci men Type: BLOOD SPECIMEN [facility] Address: [address] [place] [address] Performed By: #### 5 7021-8 #### [facility] CLIA [id number] [address] [place] [address] [place] Nucleated RBC/100 WBC (Bld) [Ratio] 0.0 /100 WBC Normal [facility] Comment on above: Order Comment: Speci men Type: BLOOD SPECIMEN [facility] Address: [address] [place] [address] Performed By: #### 5 7021-8 #### [facility] CLIA [id number] [address] [place] [address] [place] Platelet mean volume (Bld) [Entitic vol] 10.9 fL Normal 9.0-12.7 [facility] Comment on above: Order Comment: Speci men Type: BLOOD SPECIMEN [facility] Address: [address] [place] [address] Performed By: #### 5 7021-8 #### [facility] CLIA [id number] [address] [place] [address] [place] Platelets (Bld) [#/Vol] 314 10*3/uL Normal 150-400 [facility] Comment on above: Order Comment: Speci men Type: BLOOD SPECIMEN [facility] Address: [address] [place] [address] Performed By: #### 5 7021-8 #### [facility] CLIA [id number] [address] [place] [address] [place] RBC (Bld) [#/Vol] 4.26 10*6/uL Normal 3.90-5.20 [facility] Comment on above: Order Comment: Speci men Type: BLOOD SPECIMEN [facility] Address: [address] [place] [address] Performed By: #### 5 7021-8 #### [facility] CLIA [id number] [address] [place] [address] [place] WBC (Bld) [#/Vol] 8.07 10*3/uL Normal 3.70-11.00 [facility] Comment on above: Order Comment: Speci men Type: BLOOD SPECIMEN [facility] Address: [address] [place] [address] Performed By: #### 5 7021-8 #### [facility] CLIA [id number] [address] [place] [address] [place] HBV surface Ag Ser Qlon 04- HBV surface Ag Ql (S) Negative Normal Negative [facility] Comment on above: Order Comment: Speci men Type: BLOOD SPECIMEN [facility] Address: [address] [place] [address] Performed By: #### 5 195-3 #### [facility] CLIA [id number] [address] [place] [address] [place] HCV Ab Ser Qlon 07-19-2024 HCV Ab Ql (S) Negative Normal Negative [facility] Comment on above: Order Comment: Speci men Type: BLOOD SPECIMEN [facility] Address: [address] [place] [address] Result Comment: The result suggests no evidence of infection with Hepatitis C virus. Should recent infection be suspected, repeat testing may be considered 4-6 weeks after this draw. Performed By: #### 1 6128-1 #### [facility] CLIA [id number] [address] [place] [address] [place] HIV 1+2 Ab IA Qlon HIV 1 and 2 Ab IA.rapid Nom (S/P/Bld) [facility] Comment on above: Order Comment: Speci men Type: BLOOD SPECIMEN [facility] Address: [address] [place] [address] Result Comment: Test not indicated. Performed By: #### 3 1201-7, 04527-6 #### [facility] CLIA [id number] [address] [place] [address] [place] HIV 1+2 Ab+HIV1 p24 Ag IA Ql Non-Reactive Normal Nonreactive [facility] Comment on above: Order Comment: Speci men Type: BLOOD SPECIMEN [facility] Address: [address] [place] [address] Performed By: #### 3 1201-7, 70937-9 #### [facility] CLIA [id number] [address] [place] [address] [place] HIV immunoassay testing algorithm interpretation (S/P/Bld) [Interp] [facility] Comment on above: Order Comment: Speci men Type: BLOOD SPECIMEN [facility] Address: [address] [place] [address] Result Comment: No e vidence of HIV-1 or HIV-2 infection. Should recent infection be suspected, repeat testing may be considered 2-3 weeks after this draw. [place] Rev. Code 3701.243(E): This information has been [...] or diagnoses. Performed By: #### 3 1201-7, 66406-9 #### [facility] CLIA [id number] [address] [place] [address] [place] HbA1c (Bld)on 07-19-2024 Average glucose Estimated from glycated hemoglobin (Bld) [Mass/Vol] 117 mg/dL [facility] Comment on above: Order Comment: Speci men Type: BLOOD SPECIMEN [facility] Address: [address] [place] [address] Result Comment: eAG: (Estimated average glucose) is a calculated value from HgbA1c and is hotel services sales representative of the average blood glucose level in the last 2-3 month period. Performed By: #### 5 5454-3 #### [facility] CLIA [id number] [address] [place] [address] [place] HbA1c (Bld) [Mass fraction] 5.7 % Normal 4.3-6.1 [facility] Comment on above: Order Comment: Romelia sanchez Type: BLOOD SPECIMEN [facility] Address: [address] [place] [address] Result Comment: [place] Diabetes Association guidelines indicate that patients with HgbA1c in the range 5.7-6.4% are at increased risk for development of diabetes, and intervention by lifestyle modification may be beneficial. HgbA1c greater or equal to 6.5% is considered diagnostic of diabetes. Performed By: #### 5 5454-3 #### [facility] CLIA [id number] [address] [place] [address] [place] [id number] PLUSon 07-19-2024 Cell-free DNA./Cell-free DNA.total Dosage of chromosome-specific cfDNA (cfDNA) [Molar fraction] 13% Normal [facility] Comment on above: Order Comment: Romelia sanchez Type: BLOOD SPECIMEN [facility] Address: [address] [place] [address] Performed By: #### M AT21 #### [facility] CLIA [id number] [address] [place] [address] Chr 13+18+21+X+Y aneuploidy Dosage of chromosome-specific cfDNA Ql (cfDNA) Negative Normal [facility] Comment on above: Order Comment: Romelia sanchez Type: BLOOD SPECIMEN [facility] Address: [address] [place] [id number] Performed By: #### M AT21 #### [facility] CLIA [id number] [address] [place] [address] Chr 21 trisomy Dosage of chromosome-specific cfDNA Ql (cfDNA) Negative [facility] Comment on above: Order Comment: Speci men Type: BLOOD SPECIMEN [facility] Address: [address] [place] [address] Performed By: #### M AT21 #### [facility] CLIA [id number] [address] [place] [address] Chr X and Y aneuploidy risk Sequencing Ql (cfDNA) [Interp] Not detected [facility] Comment on above: Order Comment: Speci men Type: BLOOD SPECIMEN [facility] Address: [address] [place] [address] Result Comment: Not Detected Not Detected Performed By: #### M AT21 #### [facility] CLIA [id number] [address] [place] [address] Citation Osei (Reference lab test) Comment [facility] Comment on above: Order Comment: Speci men Type: BLOOD SPECIMEN [facility] Address: [address] [place] [address] Result Comment: 1. P herminio DURAN, et al. Julita Med. 2012;14(3):296-305. 2. Angelique CROWDER, et al. Prenat Diag. 2013;33(6):591-597. 3. Patrice C, et al. Clin Chem. 2015 Apr;61(4):608-616. 4. Shreyas DURAN, et al. Julita Med. 2011;13(11):913-920. 5. ACOG/SMFM Practice Bulletin No. 226, Jan 2020. Performed By: #### M AT21 #### [facility] CLIA [id number] [address] [place] [address] Gestational age Estimated from conception date [facility] Comment on above: Order Comment: Speci men Type: BLOOD SPECIMEN [facility] Address: [address] [place] [address] Performed By: #### M AT21 #### [facility] CLIA [id number] [address] [place] [address] GESTATIONALAGE AGE > OR = 9W Yes [facility] Comment on above: Order Comment: Romelia sanchez Type: BLOOD SPECIMEN [facility] Address: [address] [place] [address] Performed By: #### M AT21 #### [facility] CLIA [id number] [address] [place] [address] Laboratory comment Osei (Report) Comment [facility] Comment on above: Order Comment: Romelia sanchez Type: BLOOD SPECIMEN [facility] Address: [address] [place] [address] Result Comment: The MaterniT(R) 21 PLUS laboratory-developed test (LDT) analyzes circulating cell-free DNA from a maternal blood sample. This test is used for screening purposes and not diagnostic. Clinical correlation is recommended. Validation data on twin pregnancies is limited and the ability of this test to detect aneuploidy in higher multiple gestations has not yet been validated. Performed By: #### M AT21 #### [facility] CLIA [id number] [address] [id number] director sales training name Nom (Provider) Comment [facility] Comment on above: Order Comment: Romelia sanchez Type: BLOOD SPECIMEN [facility] Address: [address] [place] [address] Result Comment: This specimen showed an expected representation of chromosome 21, 18 and 13 material. Clinical correlation is suggested. Comment Elton Castaenda MD, PhD, Director, Seratis Performed By: #### M AT21 #### [facility] CLIA [id number] [address] [place] [address] LIMITATIONS OF THE TEST Comment [facility] Comment on above: Order Comment: Romelia sanchez Type: BLOOD SPECIMEN [facility] Facility[facility] Address: [address] [place] [address] Result Comment: Arlene brizuela the results of [...] Fragmin(R)). Performed By: #### M AT21 #### [facility] CLIA [id number] [address] [facility] [address] Monosomy X risk Dosage of chromosome-specific cfDNA Ql (Plasma cell-free+WBC DNA) [Interp] Not detected Normal [facility] Comment on above: Order Comment: Speci men Type: BLOOD SPECIMEN [facility]ing Facility: [facility] Address: [address] [place] [address] Performed By: #### M AT21 #### [facility] CLIA [id number] [address] [place] [address] NEGATIVE PREDICTIVE VALUE Note [facility] Comment on above: Order Comment: [facility] Type: BLOOD SPECIMEN [facility] Address: [address] [place] [address] Result Comment: The Negative Predictive Value (NPV) for trisomy 21, 18, and 13 is greater than 99%. The NPV for SCA and ESS cannot be calculated as SCA and ESS are only reported when an abnormality is detected. Performed By: #### M AT21 #### [facility] CLIA [id number] [address] [place] [address] PERFORMANCE CHARACTERISTICS Note [facility] Comment on above: Order Comment: Romelia [facility] Type: BLOOD SPECIMEN [facility] Address: [address] [place] [address] Result Comment: ! Sex ! Accuracy: 99.4% [...] ! ! ! * As reported in [facility] database nstd37 [https://www.ncbi.nlm.nih.gov/dbvar/studies/nstd37/ ] # Estimated Sensitivity. Sensitivity estimated across the observed size distribution of each syndrome [per [facility] nstd37] and across the range of fractions observed in routine clinical NIPT. Actual sensitivity can also be influenced by other factors such as the size of the event, total sequence counts, amplification bias, or sequence bias. ## Taylor gestation only. Performed By: #### M AT21 #### [facility] CLIA [id number] [address] [place] [address] POSITIVE PREDICTIVE VALUE N/A [facility] Comment on above: Order Comment: Romelia sanchez Type: BLOOD SPECIMEN [facility] Address: [address] [place] [address] Performed By: #### M AT21 #### [facility] CLIA [id number] [address] [place] [address] Reference Lab Test Method Comment [facility] Comment on above: Order Comment: Romelia sanchez Type: BLOOD SPECIMEN [facility] Address: [address] [place] [address] Result Comment: See Notes Circulating cell-free DNA [...] 22. Performed By: #### M AT21 #### [facility] CLIA [id number] [address] [place] [address] Service comment (Unsp spec) [Interp] Comment [facility] Comment on above: Order Comment: Speci men Type: BLOOD SPECIMEN [facility]ing [facility] Address: [address] [place] [address] Result Comment: See Notes [employer] is a subsidiary of [employer], using the brand [facility]. This test was developed and its performance characteristics determined by [facility]. It has not been cleared or approved by the Food and Drug Administration. This laboratory is certified under the Clinical Laboratory Improvement Amendments (CLIA) as qualified to perform high complexity clinical laboratory testing and accredited by the [employer] (CAP). If there is future clinical need for adding MaterniT GENOME testing, this specimen will be available until term. [facility] samples will not be retained beyond 60 days. [facility] patients will have to send a new sample for re-sequencing ([facility] Test Code: [id number]). Performed By: #### M AT21 #### [facility] CLIA [id number] [address] [place] [address] Sex Dosage of chromosome-specific cfDNA Nom (cfDNA) Comment [facility] Comment on above: Order Comment: Speci men Type: BLOOD SPECIMEN [facility] Address: [address] [id number] Result Comment: Cons istent with Female Performed By: #### M AT21 #### [facility] CLIA [id number] [address] [place] [address] Test performance information Osei (Unsp spec) Comment [facility] Comment on above: Order Comment: Romelia sanchez Type: BLOOD SPECIMEN [facility] Address: [address] [place] [address] Result Comment: The performance characteristics of the MaterniT(R) 21 PLUS laboratory-developed test (LDT) have been determined in a clinical validation study with women at increased risk for chromosomal aneuploidy.[1-4] Performed By: #### M AT21 #### [facility] CLIA [id number] [address] [place] [address] Trisomy 13 risk Dosage of chromosome-specific cfDNA Ql (cfDNA) [Interp] Negative [facility] Comment on above: Order Comment: Romelia sanchez Type: BLOOD SPECIMEN [facility] Address: [address] [place] [address] Performed By: #### M AT21 #### [facility] CLIA [id number] [address] [place] [address] Trisomy 18 risk Dosage of chromosome-specific cfDNA Ql (Plasma cell-free+WBC DNA) [Interp] Negative [facility] Comment on above: Order Comment: Romelia sanchez Type: BLOOD SPECIMEN [facility] Address: [address] [place] [address] Performed By: #### M AT21 #### [facility] CLIA [id number] [address] [place] [address] RUBELLA IGG ANTIBODYon 07-19 RUBELLA IGG AB, QUAL Positive Normal Positive [facility] Comment on above: Order Comment: Romelia sanchez Type: BLOOD SPECIMEN [facility] Address: [address] [place] [address] Result Comment: The result suggests recent or past exposure to Rubella virus or history of Rubella vaccination. Positive result may also be seen due to presence of passively-transferred antibodies. Please correlate with patient's history. Performed By: #### R UBIGG #### [facility] CLIA [id number] [address] [place] [address] [place] Reagin and Treponema pallidu m IgG and IgM [Interp]on 07-19-2024 T. pallidum IgG+IgM IA Ql (S) Non-Reactive Normal Nonreactive [facility] Comment on above: Order Comment: Speci men Type: BLOOD SPECIMEN [facility] Address: [address] [place] [address] Performed By: #### M AT21 #### [facility] CLIA [id number] [address] [place] [address] Reagin+T pallidum IgG+IgM Se rPl-Impon 07-19-2024 Reagin and Treponema pallidum IgG and IgM [Interp] Cannot exclude recent Treponemal infection if specimen collected within 7-10 days after appearance of suspect lesions or 2-3 weeks after an exposure. Clinical correlation is required. [facility] Comment on above: Order Comment: Speci men Type: BLOOD SPECIMEN [facility] Address: [address] [place] [address] Performed By: #### M AT21 #### [facility] CLIA [id number] [address] [place] [address] TYPE + SCREEN PRENATALon ABO AB [facility] Comment on above: Order Comment: Speci men Type: BLOOD SPECIMEN [facility] Address: [address] [place] [address] Performed By: #### T SPN #### [facility] CLIA [id number] [address] [place] [address] [place] Rh Nom (Bld) Positive [facility] Comment on above: Order Comment: Speci men Type: BLOOD SPECIMEN [facility] Address: [address] [place] [address] Performed By: #### T SPN #### [facility] CLIA [id number] [address] [place] [address] [place] TYPE AND SCREEN EXPIRATION 07/22/2024 23:59 Normal [facility] Comment on above: Order Comment: Speci men Type: BLOOD SPECIMEN [facility] Address: [address] [place] [id number] Performed By: #### T SPN #### [facility] CLIA [id number] [address] [place] [address] [place] Miracle 06-30-2024 SVETLANAN Telephone (OBGYWM) ---- LAURA CASTELLANOS ([id number]) 1995 [address] [facility] Date Time Provider Department 06/30/24 JULIA HESTER During your visit today, we recorded the following information about you: Bozena Patton RN 06/30/2024 8:14 AM Signed +UTI, Keflex sent. Julia Hester APRN.Bozena Junior RN 06/30/2024 8:14 AM Signed Left message to call office. NIKHIL Lee Jennifer, RN 06/30/2024 10:02 AM Signed Patient notified. Regina Benietz RN Allergies As of Date: 06/30/2024 Noted [...] Status:Closed by REGINA BENITEZ on 06/30/24 Normal [facility] Bacteria Ur Culton Bacteria identified Cx Nom (U) ORGANISM ID: 1 10,000 -<50,000 CFU/ml Staphylococcus saprophyticus Routine susceptibility testing of S. saprophyticus urine isolates is not performed because uncomplicated UTIs respond to urine concentrations of agents commonly used (e.g. Nitrofurantoin, TMP/SMX, or a quinolone). Normal [facility] Comment on above: Performed By: #### 7 3752-8, 42941-7, 2276-4 #### [facility] CLIA [id number] [address] [place] [address] [place] C. trachomatis+N. gonorrhoea e DNA ANGELIA+probe Ql (Unsp spec)on 06-27-2024 C. trachomatis rRNA ANGELIA+probe Ql (Unsp spec) Not detected Normal Not detected [facility] Comment on above: Order Comment: Speci men Type: BLOOD SPECIMEN [facility] Address: [address] [place] [address] Performed By: #### 7 3752-8, 41115-9, 2276-4 #### [facility] CLIA [id number] [address] [place] [address] [place] N. gonorrhoeae rRNA ANGELIA+probe Ql (Unsp spec) Not detected Normal Not detected [facility] Comment on above: Order Comment: Speci men Type: BLOOD SPECIMEN [facility] Address: [address] [place] [address] Performed By: #### 7 3752-8, 39941-9, 2276-4 #### [facility] CLIA [id number] [address] [place] [address] [place] POC CUSTOMER ORDER CLERK ULTRASOUNDon 06-28-19 Indication Confirmation of intrauterine . [...] By: Julia Hester CNP MATERNAL MEDICINE [facility] Radiology Study observation (narrative) [facility] TRICHOMONAS VAGINALIS NAATon 06-27-2024 T. vaginalis DNA ANGELIA+probe Ql (Unsp spec) Not detected Normal Not detected [facility] Comment on above: Order Comment: Speci men Type: BLOOD SPECIMEN [facility] Address: [address] [place] [address] Performed By: #### 7 3752-8, 92911-6, 2276-4 #### [facility] CLIA [id number] [address] [place] [address] [place] Estradiol SerPl-mCncon 02-04 E2 [Mass/Vol] 42 pg/mL Normal See comment [facility] Comment on above: Order Comment: [...] pg/mL Performed By: #### 2 243-4 #### [facility] CLIA [id number] [address] [place] [address] [place] FSH SerPl-aCncon 02-05-2024 Follitropin Qn 6.5 m[IU]/mL Normal See Comment [facility] Comment on above: Order Comment: Speci [...] 25.8-134.8 mIU/mL Performed By: #### 1 5067-2, 72736-9 #### [facility] CLIA [id number] [address] [place] [address] [place] LH SerPl-aCncon 02-05-2024 Lutropin Qn 1.3 m[IU]/mL Normal See Chart [facility] Comment on above: Order Comment: Speci men Type: BLOOD SPECIMEN Ordering Facility: External Submitter Address: , , Result Comment: Refe rence range: Follicular: 1.9 - 12.5 mIU/mL Midcycle: 8.7 - 76.3 mIU/mL Luteal: 0.5 - 16.9 mIU/mL : 0.0 - 1.5 mIU/mL Post Menopausal: 15.9 - 54.0 mIU/mL Performed By: #### 1 5067-2, 70382-6 #### [facility] CLIA [id number] [address] [place] [address] [place] CHROM ANDRIY PERIPHon 024 BLOOD CYTOGENETICS CHROMO [facility] Comment on above: Order Comment: Speci men Type: BLOOD SPECIMEN Ordering Facility: External Sub[facility] Address: , , Result Comment: Jhon ovalle Accession Number: [id number] Doctor: CL BLANC Clinical diagnosis: Symptomatic premature [...] Antonino Clement, PhD, FACMG Performed by [facility] Molecular Pathology and Cytogenomics ([id number]), Division of Laboratory Medicine Ricardo Cloud [facility], [facility] [address] [place] [address]. [place] [address] Toll free: Performed By: #### C HRBLD #### [facility] CLIA [id number] [address] [place], [place] [address] [place] [address] [place] [facility] VARICELLA ZOSTER IGG AB [CCF ]on 01-17-2024 RESULT CRITICAL? NO Normal [facility] Comment on above: Performed By: #### 2 87336 #### [facility],[address] [place] [address] Performed By: #### 2 57273 #### [facility],[address] [place], [place] [id number] 17-HYDROXYPROGESTERONE, SERU M[CCL]on 01-16-2024 HydroxyProgesterone 66.63 ng/dL Normal <=206.00 [facility] Comment on above: Result Comment: INTE RPRETIVE INFORMATION for 17-Hydroxyprogesterone in females: Follicular 15 to 70 ng/dL Luteal 35 to 290 ng/dL REFERENCE INTERVAL: 17-Hydroxyprogesterone Qnt, HPLC-MS/MS Access complete set of age- and/or gender-specific reference intervals for this test in the [employer] [facility] Test Directory (Div[employer]). This test was developed and its performance characteristics determined by [facility]. It has not been cleared or approved by the US Food and Drug Administration. This test was performed in a CLIA certified laboratory and is intended for clinical purposes. Performed By: [facility] [address] [place] [address] Breaker Layer: Karl Olivares MD, PhD CLIA Number: [id number] [place] [id number] Isidro Broussard III, M.D. [id number] Performed By: #### 2 [address]2885 #### [address] [address] ANTI MULLERIAN HORMONE [CCL] on 01-16-2024 Anti Ritchie Hormone 0.30 ng/mL Low 0.58-8.13 [facility] Comment on above: Result Comment: [place] [id number] Isidro Broussard III, M.D. [id number] Performed By: #### 2 88851 #### [address] [address] HEP B SURFACE AG [CCL]on Hepatitis B Surf. Ag Negative Normal Negative [facility] Comment on above: Result Comment: [address] [address] Isidro Broussard III, M.D. [id number] Performed By: #### 2 69453 #### [address] [address] HEPATITIS C AB IA W/CONFIRM [CCL]on 01-16-2024 Hepatitis C Ab IA Negative Normal Negative [facility] Comment on above: Result Comment: The result suggests no evidence of active infection with Hepatitis C virus. Should recent infection be suspected, repeat testing may be considered 4-6 weeks after this draw. [place] [id number] Isidro Broussard III, M.D. [id number] Performed By: #### 2 63662 #### [address] [address] RPR [CCL]on 01-16-2024 Reagin Ab RPR Ql (S) Non-Reactive Normal Nonreactive [facility] Comment on above: Result Comment: Rapi d plasma reagin (RPR) test detects non-treponemal antibodies. RPR may be reactive in a variety of infectious and non-infectious conditions. Correlation with clinical picture and with treponemal antibody results is required for final interpretation. [place] [id number] Isidro Broussard III, M.D. [id number] Performed By: #### 2 57169 #### [address] [address] RUBELLA IgG ANTIBODY [CCL]on 01-16-2024 Rubella IgG Ab, Qual Positive Normal Positive [facility] Comment on above: Result Comment: The result suggests recent or past exposure to Rubella virus or history of Rubella vaccination. Positive result may also be seen due to presence of passively-transferred antibodies. Please correlate [place] [address] Isidro Broussard III, M.D. [id number] Performed By: #### 2 83272 #### [address] [address] TESTOSTERONE [CCL]on 024 Testosterone [Mass/Vol] 26 ng/dL Normal <40 [facility] Comment on above: Result Comment: [place] [address] Isidro Broussard III, M.D. [id number] Performed By: #### 2 21771 #### [address] [address] VARICELLA ZOSTER IGG AB [CCF ]on 01-16-2024 V. zoster IgG, Qual Positive Normal Positive [facility] Comment on above: Result Comment: The result suggests recent or past exposure to Varicella-Zoster virus or chickenpox vaccination or zoster vaccination. Positive result may also be seen due to presence of passively-transferred antibodies. Please correlate [place] [address] Isidro Broussard III, M.D. [id number] Performed By: #### 2 97091 #### [address] [address] HIV 1/2 COMBO (AG/AB) [CCL]o n 01-15-2024 HIV 1/2 COMBO (AG/AB) [CCL] Normal [facility] Comment on above: Result Comment: _HIV 1/2 COMBO (AG/AB) [CCL]_ SEE SEPARATE REPORT Performed By: #### 2 16538 #### [address] [address] DHEA-S [CCL]on 01-14-2024 DHEA-S 362.9 ug/dL Abnormal 98.8 - 340.0 ug/dL [facility] Comment on above: Result Comment: Refe rence ranges are age and gender specific. For additional information, reference range tables can be found in the laboratory test directory. The normal values are based on the following source: Dehydroepiandrosterone sulfate (DHEA S) [package insert V 17.0 Korean]. [facility], [place], [place]: November 2012. [facility] [address] [place] [address] Isidro Broussard III, M.D. [id number] Performed By: #### 2 57218 #### [address] [address] GC/CHLAM AMPLIFICATION [CCL] on 01-14-2024 SEND TO IC? NO Normal [facility] Comment on above: Performed By: #### 2 17558 #### [address] [address] Chlamydia Amplification Negative Normal Nega tive for Chlamydia tr [facility] Comment on above: Result Comment: For screening asymptomatic women, a vaginal swab specimen(APTIMA vaginal swab 530635) is optimal. Urine specimens have reduced sensitivity for Chlamydia trachomatis or Neisseria gonorrhoeae infection in female patients without symptoms. SOURCE: Urine (Nonspecific) [facility] [address] [place] [address] Isidro Broussard III, M.D. [id number] Performed By: #### 2 89921 #### [facility],[address] [place], [place] [address] GCAMP Negative Normal Negative for Neisseria go [facility] Comment on above: Performed By: #### 2 38616 #### [facility],[address] [place], [place] [address] BB TYPE & SCREENon 4 ABO AB Normal [facility] Comment on above: Performed By: #### 2 16944 #### [facility],[address] [place] [address] ANTIBODY SCR Negative Normal [facility] Comment on above: Performed By: #### 2 83866 #### [facility],[address] [place] [address] BB TYPE & SCREEN Normal [facility] Comment on above: Result Comment: TYPE , Rh, AND SCREEN Performed By: #### 2 45919 #### [facility],[address] [place] [address] Rh Nom (Bld) Positive Normal [facility] Comment on above: Performed By: #### 2 93502 #### [facility],[address] [place], [place] [id number] HEMOGLOBIN A1C (POM)on 01-12 Glucose [Mass/Vol] 116.9 mg/dL High 0.0 - 0.0 [facility] Comment on above: Result Comment: BLDo HEMOGLOBIN A1C REFERENCE RANGESBLDo Suggested Diagnosis HbA1c(%) HbA1C (mmol/mol Diabetic >/=6.5 >/=48 Prediabetes 5.7 - 6.4 39 - 47 Normal <5.7 <39 Performed By: #### 2 03960 #### [facility],[address] [place], [place] [id number] HbA1c (Bld) [Mass fraction] 5.7 % Normal 0.0 - 6.5 % [facility] Comment on above: Performed By: #### 2 97140 #### [facility],[address] [place] [address] Laboratory - Blood bankon ABO group Nom (Bld) AB Normal [facility]; [facility] Work Phone: Blood group antibody screen Ql Negative Normal [facility]; [facility]. Work Phone: Laboratory - Chemistry and C hemistry - challengeon 01-13-2024 Average glucose Estimated from glycated hemoglobin (Bld) [Mass/Vol] 116.9 mg/dL Abnormal 0.0 - 0.0 mg/dL [facility]; [facility]. Work Phone: Testosterone [Mass/Vol] 26 ng/dL Normal [facility]. Work Phone: Laboratory - Microbiology an d Antimicrobial susceptibilityon 01-13-2024 Reagin Ab RPR Ql (S) Non-Reactive Normal [facility]; [facility] Work Phone: No Panel Informationon 01-12 Anti Ritchie Hormone 0.30 ng/mL Abnormal 0.58 - 8 .13 ng/mL [facility]; [facility]. Work Phone: BB TYPE Normal [facility]; [facility]. Work Phone: Chlamydia Amplification Negative Normal [facility]. Work Phone: GCAMP Negative Normal [facility]; [facility] Work Phone: Hepatitis B Surf. Ag Negative Normal [facility].; [facility]. Work Phone: Hepatitis C Ab IA Negative Normal [facility].; [facility] [place]. Work Phone: HIV 1/2 COMBO (AG/AB) [CCL] [facility].; [facility]. Work Phone: HydroxyProgesterone 66.63 ng/dL Normal [facility].; [facility]. Work Phone: RESULT CRITICAL? NO Normal [facility].; [facility]. Work Phone: Rubella IgG Ab, Qual Positive [facility].; [facility]. Work Phone: SEND TO IC? NO [facility].; [facility]. Work Phone: V. zoster IgG, Qual Positive [facility].; [facility]. Work Phone: TSHon 01-13-2024 TSH Qn 0.83 m[IU]/L Normal 0.35 - 3.74 {uIU/ml} [facility] Comment on above: Performed By: #### 2 32775 #### [facility],[address] [place] [address] Urinalysis complete panel (U )Ordered By: Myah Schmitz on 09-17-2023 Bacteria LM.HPF (Urine sed) [#/Area] Negative Negative /HPF [facility] Bilirubin Ql (U) Negative Negative [facility] Clarity (Unsp spec) Clear Clear [facility] [facility] Color (U) Dark Yellow Abnormal Yellow [facility] Epithelial cells LM.HPF (Urine sed) [#/Area] None Seen /HPF [facility] Glucose Test strip (U) [Mass/Vol] Negative Negative [facility] Hemoglobin Ql (U) 2+ Abnormal Negative [facility] Hyaline casts (Urine sed) [#/Area] 0 /[LPF] 0 /LPF [facility] Interpretation and review of laboratory results Abnormal [facility] Ketones Ql (U) Negative Negative [facility] Leukocyte esterase Test strip Ql (U) 2+ Abnormal Negative [facility] Nitrite Ql (U) Negative Negative [facility] pH (U) 6.5 [pH] NINF - 8.5 [facility] Protein (U) [Mass/Vol] Trace Abnormal Negative [facility] RBC LM.HPF (Urine sed) [#/Area] 6-10 /HPF Abnormal 0-2 /HPF [facility] Specific gravity (U) [Rel density] 1.008 1.005 - 1.030 [facility] Urobilinogen Ql (U) 1.0 EU/dL 0.2-1.0 EU/dL [facility] WBC LM.HPF (Urine sed) [#/Area] /[HPF] Abnormal 0-5 /HPF [facility] Result rechecked. This test was developed and its performance characteristics determined by [facility]'s [facility] [place] ([facility]). It has not been cleared or approved by the FDA. [facility] is regulated under CLIA as qualified to perform high-complexity testing. This test is used for clinical purposes. It should not be regarded as investigational or for research. [facility] Bacteria Ur Culton 4 Bacteria identified Cx Nom (U) CULTURE, URINE: 10,000-<50,000 CFU/ml Normal Urogenital Shae Normal [facility] Comment on above: Performed By: #### 6 30-4 #### [facility] CLIA [id number] [address] [place] [address] [place] CNOVon 05-24-2023 CNOV Office Visit (UCMNCA) ---- LAURA CASTELLANOS ([id number]) 1995 F [facility] Date Time Provider Department 05/24/23 11:20 AM [facility] During your visit today, we recorded [...] history is provided by the patient. 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 PAST MEDICAL HISTORY Diagnosis Date [...] - IC (more content not included)... Normal [facility] HCG Preg Ur Qlon 05-24-2023 HCG ( test) Ql (U) Negative Normal Negative [facility] Comment on above: Order Comment: Speci men Type: URINE SPECIMEN [facility] Facility: [facility] Address: [address] [place] [address] Result Comment: This test is intended to aid in the early detection of . Very dilute urine samples, as indicated by a low specific gravity, may not contain hotel services sales representative levels of hCG. This test detects [...] . Performed By: #### 2 106-3 #### [facility] CLIA [id number] [address] [place] [address] [place] URINALYSIS, DIPSTICK ONLYon 05-24-2023 Bilirubin Ql (U) Negative Normal Negative [facility] Comment on above: Order Comment: Speci men Type: URINE SPECIMEN [facility]ing Facility: [facility] Address: [address] [place] [address] Performed By: #### U A #### [facility] CLIA [id number] [address] [place] [address] [place] Clarity (Unsp spec) Cloudy Abnormal Clear [facility] Comment on above: Order Comment: Speci men Type: URINE SPECIMEN [facility]: [facility] Address: [address] [place] [address] Performed By: #### U A #### [facility] CLIA [id number] [address] [place] [address] Color (U) Yellow Normal Yellow [facility] Comment on above: Order Comment: Speci men Type: URINE SPECIMEN [facility] Address: [address] [place] [address] Performed By: #### U A #### [facility] CLIA [id number] [address] [place] [address] Glucose Test strip (U) [Mass/Vol] Negative Normal Negative [facility] Comment on above: Order Comment: Speci men Type: URINE SPECIMEN [facility] Address: [address] [place] [address] Performed By: #### U A #### [facility] CLIA [id number] [address] [place] [address] Hemoglobin Ql (U) 3+ Abnormal Negative [facility] Comment on above: Order Comment: Speci men Type: URINE SPECIMEN [facility] Address: [address] [place] [address] Performed By: #### U A #### [facility] CLIA [id number] [address] [place] [address] Ketones Ql (U) Negative Normal Negative [facility] Comment on above: Order Comment: Speci men Type: URINE SPECIMEN [facility] Address: [address] [place] [address] Performed By: #### U A #### [facility] CLIA [id number] [address] [place] [address] Leukocyte esterase Test strip Ql (U) 3+ Abnormal Negative [facility] Comment on above: Order Comment: Speci men Type: URINE SPECIMEN [facility] Address: [address] [place] [address] Performed By: #### U A #### [facility] CLIA [id number] [address] [place] [address] [place] Nitrite Ql (U) Negative Normal Negative [facility] Comment on above: Order Comment: Speci men Type: URINE SPECIMEN [facility] Address: [address] [place] [address] Performed By: #### U A #### [facility] CLIA [id number] [address] [place] [address] [place] pH (U) 6.0 [pH] Normal 5.0-8.0 [facility] Comment on above: Order Comment: Speci men Type: URINE SPECIMEN [facility] Address: [address] [place] [address] Performed By: #### U A #### [facility] CLIA [id number] [address] [place] [address] Protein (U) [Mass/Vol] Negative Normal Negative [facility] Comment on above: Order Comment: Speci men Type: URINE SPECIMEN [facility] Address: [address] [place] [address] Performed By: #### U A #### [facility] CLIA [id number] [address] [place] [address] Specific gravity (U) [Rel density] 1.010 Normal 1.005-1.030 [facility] Comment on above: Order Comment: Speci men Type: URINE SPECIMEN [facility] Address: [address] [place] [address] Performed By: #### U A #### [facility] CLIA [id number] [address] [place] [address] Urobilinogen Ql (U) Negative Normal Negative [facility] Comment on above: Order Comment: Speci men Type: URINE SPECIMEN [facility] Address: [address] [place] [address] Performed By: #### U A #### [facility] CLIA [id number] [address] [id number] [place] Progest SerPl-mCncon 024 Progesterone [Mass/Vol] 3.4 ng/mL Normal See comment [facility] Comment on above: Order Comment: [...] concentrations. Performed By: #### 2 839-9 #### [facility] CLIA [id number] [address] [id number] [place] Laboratory - Chemistry and C hemistry - challengeon 01-23-2023 Beta HCG ( test) Ql (U) Negative Normal [facility] [employer] [facility] [employer] [facility] Bilirubin Ql (U) Negative Normal [facility] [employer] [facility] [employer] [facility] Ketones Ql (U) Negative Normal [facility] [employer] [facility] [employer] [facility] pH (U) 6.0 [pH] Normal [facility] [employer] [facility] [employer] [facility] Specific gravity (U) [Rel density] 1.020 Normal [facility] [employer] [facility] [employer] [facility] Laboratory - Hematology and Cell countson 01-23-2023 Hemoglobin Ql (U) +++ Abnormal [facility] Laboratory - Specimen inform ationon 01-23-2023 Appearance (U) CLOUDY Abnormal [facility] [employer] Color (U) YELLOW Normal [facility] Laboratory - Urinalysison Glucose Test strip (U) [Mass/Vol] Negative Normal [facility] [employer] Leukocyte esterase Test strip Ql (U) 3+ Abnormal [facility] [employer] Nitrite Ql (U) Negative Normal [facility] [employer] Protein Ql (U) 2+ Abnormal [facility] [employer] No Panel Informationon 01-23 UA - ODOR Negative Normal [facility] [employer] UA - UROBILIGEN 0.2 Normal [facility], [place]. Laboratory - Chemistry and C hemistry - challengeOrdered By: Armen Boggs on 12-05-2022 Free T4 [Mass/Vol] 0.93 ng/dL 0.76-1.46 [facility] No Panel InformationOrdered By: Armen Boggs on 12-05-2022 Follicle Stimulating Hormone 2.4 mIU/mL [facility] Comment on above: NORMAL REFERENCE RAN [facility] FEMALE FOLLICULAR 2.3 - 12.6 mIU/mL MID-CYCLE PEAK 5.2 - 17.5 mIU/mL LUTEAL 1.7 - 12.9 mIU/mL POST-MENOPAUSAL ON MHT 5.9 - 72.8 mIU/mL NOT ON MHT 12.7 - 132.2 mlU/mL MALE 0.7 - 10.8 mIU/mL Luteinizing Hormone 1.5 mIU/mL [facility] Comment on above: NORMAL REFERENCE RAN GES FEMALE FOLLICULAR 1.9 - 26.2 mIU/mL [place]AK 22.8 - 76.1 mIU/mL LUTEAL 0.6 - 16.6 mIU/mL POST-MENOPAUSAL ON MHT 1.1 - 52.4 mIU/mL NOT ON MHT 8.6 - 61.8 mIU/mL MALE 1.2 - 10.6 mIU/mL Thyroid Stimulating Hormone (TSH) 0.81 uIU/mL 0.358-3.74 [facility] No Panel Informationon 12-05 DHEA SULFATE 278.0 ug/dL Normal 84.8 - 378.0 ug/dL [facility], [facility]. Work Phone: ESTRADIOL 112.8 pg/mL Normal [facility]; [facility], [facility]. Work Phone: FSH 2.4 m[iU]/mL Normal [facility]. Work Phone: LH 1.5 m[iU]/mL Normal [facility].; [facility], [facility]. Work Phone: PROLACTIN 12.5 ng/mL Normal [facility].; [facility], [facility]. Work Phone: T4 FREE DIRECT 0.93 ng/dL Normal 0.76 - 1.46 ng/dL [facility].; [facility], [facility]. Work Phone: TESTOSTERONE, F 0.29 ng/dL Normal 0.10 - 0.85 ng/dL [facility].; [facility], [facility]. Work Phone: TESTOSTERONE, T 21 ng/dL Normal 13 - 71 ng/dL [facility], [facility].; [facility], [facility]. Work Phone: TESTOSTERONE,%F 1.38 Normal 0.50 - 2.80 [facility] Work Phone: TSH 0.81 {uIU/mL} Normal 0.358 - 3.74 {uIU/mL} [facility]; [facility] Work Phone: Serum or plasma estradiol (E 2) measurement (mass/volume)Ordered By: Armen Boggs on 12-05-2022 E2 [Mass/Vol] 112.8 pg/mL [facility] Comment on above: NORMAL REFERENCE RAN [facility] FEMALE FOLLICULAR 21.4 - 164.8 [...] Boggs on 12-05-2022 Prolactin [Mass/Vol] 12.5 ng/mL [facility] Comment on above: NORMAL REFERENCE RAN GES FEMALE NON- 2.2 - 30.3 ng/mL 8.1 - 347.6 ng/mL POST-MENOPAUSAL 0.7 - 31.5 ng/mL MALE 2.5 - 17.4 ng/mL Whole blood hemoglobin A1c/t otal hemoglobin ratio (mass fraction)Ordered By: Armen Boggs on 12-05-2022 HbA1c (Bld) [Mass fraction] 5.5 % Normal 3.8 - 5.6 [facility] Comment on above: Normal < 5.7 % Predi abetic 5.7 - 6.4 % Diabetic >or= 6.5 % Please note range changes. EKGon 11-06-2022 Atrial Rate 57 BPM [facility] Calculated P [place] 12 degrees [facility] Calculated R [place] 28 degrees [facility] Calculated T [place] 17 degrees [facility] P-R Interval 162 ms [facility] QRS Duration 92 ms [facility] QT Interval 426 ms [facility] QTC Calculation (Bazett) 414 ms [facility] Ventricular Rate 57 BPM [facility] CBCon 11-05-2022 BASO# 0.02 x10(3) Normal 0.00-0.10 [facility] Comment on above: Performed By: #### L 200.0010 #### [facility] [address] [place] [address] 69683 Basophils/100 WBC (Bld) 0.3 % Normal 0.0-1.0 [facility] Comment on above: Performed By: #### L 200.0010 #### [facility] [address] [place] [address] 52261 EOS# 0.06 x10(3) Normal 0.00-0.54 [facility] Comment on above: Performed By: #### L 200.0010 #### [facility] [address] [place] [address] 40861 Eosinophils/100 WBC (Bld) 1.0 % Normal 0.5-4.9 [facility] Comment on above: Performed By: #### L 200.0010 #### [facility] [address] [place] [address] 52090 Erythrocyte distribution width (RBC) [Ratio] 13.0 % Normal 12.5-15.7 [facility] Comment on above: Performed By: #### L 200.0010 #### [facility] [address] [place] [address] 88229 Hematocrit (Bld) [Volume fraction] 39.2 % Normal 36.0-48.0 [facility] Comment on above: Performed By: #### L 200.0010 #### [facility] [address] [place] [address] 86533 Hemoglobin (Bld) [Mass/Vol] 12.6 g/dL Normal 12.0-16.0 [facility] Comment on above: Performed By: #### L 200.0010 #### [facility] [address] [place] [address] 39679 IMM GRAN# 0.01 x10(3) High 0-0 [facility] Comment on above: Performed By: #### L 200.0010 #### [facility] [address] [place] [address] 00132 IMM GRAN% 0.2 % Normal [facility] Comment on above: Performed By: #### L 200.0010 #### [facility] [address] [place] [address] 41294 LYMPH# 1.73 x10(3) Normal 1.00-3.50 [facility] Comment on above: Performed By: #### L 200.0010 #### [facility] [address] [place] [address] 81562 Lymphocytes/100 WBC (Bld) 28.4 % Normal 16.0-48.0 [facility] Comment on above: Performed By: #### L 200.0010 #### ML [facility] [address] [place] [address] 26448 MCH (RBC) [Entitic mass] 27.1 pg Low 28.5-32.9 [facility] Comment on above: Performed By: #### L 200.0010 #### [facility] [address] [place] [address] 25017 MCHC (RBC) [Mass/Vol] 32.1 g/dL Low 33.0-36.0 [facility] Comment on above: Performed By: #### L 200.0010 #### [facility] [address] [place] [address] 52426 MCV (RBC) [Entitic vol] 84.3 fL Normal 80.0-99.0 [facility] Comment on above: Performed By: #### L 200.0010 #### [facility] [address] [place] [address] 89056 MONO# 0.49 x10(3) Normal 0.30-0.80 [facility] Comment on above: Performed By: #### L 200.0010 #### ML [facility] [address] [place] [address] 73996 Monocytes/100 WBC (Bld) 8.0 % Normal 4.3-11.2 [facility] Comment on above: Performed By: #### L 200.0010 #### [facility] [address] [place] [address] 37755 NEUT# 3.78 x10(3) Normal 1.40-6.50 [facility] Comment on above: Performed By: #### L 200.0010 #### [facility] [address] [place] [address] 47769 Neutrophils/100 WBC (Bld) 62.1 % Normal 45.0-73.0 [facility] Comment on above: Performed By: #### L 200.0010 #### [facility] [address] [place] [address] 12965 Platelet mean volume (Bld) [Entitic vol] 11.3 fL High 7.5-9.5 [facility] Comment on above: Performed By: #### L 200.0010 #### ML [facility] [address] [place] [address] 61971 PLT 300 X10(3) Normal 150-450 [facility] Comment on above: Performed By: #### L 200.0010 #### [facility] [address] [place] [address] 57128 RBC 4.65 x10(6) Normal 3.30-5.00 [facility] Comment on above: Performed By: #### L 200.0010 #### [facility] [address] [place] [address] 07083 WBC 6.1 x10(3) Normal 4.5-10.0 [facility] Comment on above: Performed By: #### L 200.0010 #### [facility] [address] [place] [address] 95494 CBC W Auto Differential pane l (Bld)on 11-05-2022 BASO ABS 0.02 x10(3) 0.00 - 0.10 x10(3) [facility] Basophils/100 WBC (Bld) 0.3 % 0.0 - 1.0 % [facility] EOS ABS 0.06 x10(3) 0.00 - 0.54 x10(3) [facility] Eosinophils/100 WBC (Bld) 1.0 % 0.5 - 4.9 % [facility] Erythrocyte distribution width (RBC) [Ratio] 13.0 % 12.5 - 15.7 % [facility] Hematocrit (Bld) [Volume fraction] 39.2 % 36.0 - 48.0 % [facility] Hemoglobin (Bld) [Mass/Vol] 12.6 g/dL 12.0 - 16.0 g/dL [facility] Immature Gran % 0.2 % [facility] Immature Gran Abs 0.01 x10(3) High 0 - 0 x10(3) [facility] LYMPH ABS 1.73 x10(3) 1.00 - 3.50 x10(3) [facility] Lymphocytes/100 WBC (Bld) 28.4 % 16.0 - 48.0 % [facility] MCH (RBC) [Entitic mass] 27.1 pg Low 28.5 - 32.9 pg [facility] MCHC (RBC) [Mass/Vol] 32.1 g/dL Low 33.0 - 36.0 g/dL [facility] MCV (RBC) [Entitic vol] 84.3 fL 80.0 - 99.0 fl [facility] MONO ABS 0.49 x10(3) 0.30 - 0.80 x10(3) [facility] Monocytes/100 WBC (Bld) 8.0 % 4.3 - 11.2 % [facility] Neutrophil Ab 3.78 x10(3) 1.40 - 6.50 x10(3) [facility] Neutrophils/100 WBC (Bld) 62.1 % 45.0 - 73.0 % [facility] Platelet mean volume (Bld) [Entitic vol] 11.3 fL High 7.5 - 9.5 fl [facility] Platelets (Bld) [#/Vol] 300 X10(3) 150 - 450 X10(3) [facility] RBC (Bld) [#/Vol] 4.65 x10(6) 3.30 - 5.0 0 x10(6) [facility] WBC (Bld) [#/Vol] 6.1 x10(3) 4.5 - 10.0 x10(3) [facility] CMPon 11-05-2022 A:G RATIO 1.20 Normal 1.1-2.5 [facility] Comment on above: Performed By: #### L 100.0005, L100.0040 #### [facility] [address] [place] [address] 23864 Albumin [Mass/Vol] 4.2 g/dL Normal 3.5-5.2 [facility] Comment on above: Performed By: #### L 100.0005, L100.0040 #### [facility] [address] [place] [address] 47656 ALK. PHOS 59 U/L Normal 35-105 [facility] Comment on above: Performed By: #### L 100.0005, L100.0040 #### [facility] [address] [place] [address] 61375 ALT [Catalytic activity/Vol] 12 U/L Normal 5-33 [facility] Comment on above: Performed By: #### L 100.0005, L100.0040 #### [facility] [address] [place] [address] 01885 Anion gap [Moles/Vol] 15.9 mmol/L Normal 15-22 [facility] Comment on above: Performed By: #### L 100.0005, L100.0040 #### [facility] [address] [place] [address] 51939 AST [Catalytic activity/Vol] 14 U/L Normal 5-32 [facility] Comment on above: Performed By: #### L 100.0005, L100.0040 #### [facility] [address] [place] [address] 43660 Bilirubin [Mass/Vol] 0.3 mg/dL Normal 0.2-1.2 [facility] Comment on above: Performed By: #### L 100.0005, L100.0040 #### [facility] [address] [place] [address] 34712 Calcium [Mass/Vol] 9.5 mg/dL Normal 8.6-10.0 [facility] Comment on above: Performed By: #### L 100.0005, L100.0040 #### [facility] [address] [place] [address] 34936 Chloride [Moles/Vol] 104 mmol/L Normal 98-107 [facility] Comment on above: Performed By: #### L 100.0005, L100.0040 #### [facility] [address] [place] [address] 46805 CO2 [Moles/Vol] 23 mmol/L Normal 22-29 [facility] Comment on above: Performed By: #### L 100.0005, L100.0040 #### ML [facility] [address] [place] [address] 03496 Creatinine [Mass/Vol] 0.67 mg/dL Normal 0.50-0.90 [facility] Comment on above: Performed By: #### L 100.0005, L100.0040 #### [facility] [address] [place] [address] 39774 eGFR if AFR GAVIN > 60 ml/min/1.73m2 Normal [facility] Comment on above: Result Comment: eGFR >= [...] L 100.0005, L100.0040 #### [facility] [address] [place] [address] 67740 eGFR nonAFR Gavin > 60 ml/Min/1.73m2 Normal [facility] Comment on above: Performed By: #### L 100.0005, L100.0040 #### [facility] [address] [place] [address] 62831 Globulin (S) [Mass/Vol] 3.5 g/dL Normal 1.5-4.5 [facility] Comment on above: Performed By: #### L 100.0005, L100.0040 #### [facility] [address] [place] [address] 50514 Glucose [Mass/Vol] 92 mg/dL Normal 74-106 [facility] Comment on above: Performed By: #### L 100.0005, L100.0040 #### [facility] [address] [place] [address] 20978 Potassium [Moles/Vol] 3.9 mmol/L Normal 3.5-5.0 [facility] Comment on above: Performed By: #### L 100.0005, L100.0040 #### [facility] [address] [place] [address] 02932 Protein [Mass/Vol] 7.7 g/dL Normal 6.4-8.3 [facility] Comment on above: Performed By: #### L 100.0005, L100.0040 #### [facility] [address] [place] [address] 46554 Sodium [Moles/Vol] 139 mmol/L Normal 135-145 [facility] Comment on above: Performed By: #### L 100.0005, L100.0040 #### [facility] [address] [place] [address] 94399 Urea nitrogen [Mass/Vol] 17 mg/dL Normal 6-20 [facility] Comment on above: Performed By: #### L 100.0005, L100.0040 #### [facility] - [facility]ATORY [address] [place] [address] 82063 Comprehensive metabolic 2000 panelon 11-05-2022 Albumin [Mass/Vol] 4.2 g/dL 3.5 - 5.2 g/dL [facility] Albumin/Globulin [Mass ratio] 1.20 {ratio} 1.1 - 2.5 [facility] ALP [Catalytic activity/Vol] 59 U/L 35 - 105 U/L [facility] ALT [Catalytic activity/Vol] 12 U/L 5 - 33 U/L [facility] Anion gap [Moles/Vol] 15.9 mmol/L 15 - 22 mmol/ L [facility] AST [Catalytic activity/Vol] 14 U/L 5 - 32 U/L [facility] Bilirubin [Mass/Vol] 0.3 mg/dL 0.2 - 1.2 mg/dL [facility] Calcium [Mass/Vol] 9.5 mg/dL 8.6 - 10. 0 mg/dL [facility] Chloride [Moles/Vol] 104 mmol/L 98 - 107 mmol/L [facility] CO2 [Moles/Vol] 23 mmol/L 22 - 29 mmol/L [facility] Creatinine [Mass/Vol] 0.67 mg/dL 0.50 - 0.90 mg/dL [facility] eGFR-All Other Races > 60 ml/Min/1.73m2 [facility] GFR/1.73 sq M.predicted among blacks MDRD (S/P/Bld) [Vol rate/Area] mL/min/{1.73_m2} [facility] Globulin (S) [Mass/Vol] 3.5 g/dL 1.5 - 4.5 g/ dL [facility] Glucose [Mass/Vol] 92 mg/dL 74 - 106 mg/dL [facility] Potassium [Moles/Vol] 3.9 mmol/L 3.5 - 5.0 mmol/L [facility] Protein [Mass/Vol] 7.7 g/dL 6.4 - 8.3 g/dL [facility] Sodium [Moles/Vol] 139 mmol/L 135 - 145 mmol/L [facility] Urea nitrogen [Mass/Vol] 17 mg/dL 6 - 20 mg/dL [facility] ELECTROCARDIOGRAMon 11-06-19 23 [place] [address] HEALTH INFORMATION MANAGEMENT ELECTROCARDIOGRAM REPORT Patient: LAURA CASTELLANOS Ordering: ALFRED HOOD C.N.P. [id number] [age] F Exam Date: 11/05/22 Report #: [id number] Status: REG CLI CARD Test Reason : Blood Pressure : / mmHG Vent. Rate : 057 BPM Atrial Rate : 057 BPM P-R Int : 162 ms QRS Dur : 092 ms QT Int : 426 ms P-R-T Axes : 012 028 017 degrees QTc Int : 414 ms Sinus bradycardia Otherwise normal ECG No previous ECGs available Confirmed by JANETH BLACK MD ([id number]) on 11/06/2022 11:30:03 AM Referred By: Confirmed By:JANETH BLACK MD Signed in GE MUSE 11/06/22 1130 JANETH BLACK M.D. cc: << Signature on File>> Reported By: JANETH BLACK M.D. Signed By: JANETH BLACK M.D. Tests performed at: [address] [address] [facility] LIPID PANELon 11-05-2022 Cholesterol [Mass/Vol] 148 mg/dL Normal 130-200 [facility] Comment on above: Performed By: #### L 100.0005, L100.0040 #### [facility] - LABORATORY [address] [place] [address] Cholesterol in HDL [Mass/Vol] 53 mg/dL Normal [facility] Comment on above: Result Comment: Marie onal [...] L 100.0005, L100.0040 #### [facility] - LABORATORY [address] [place] [address] Cholesterol in LDL [Mass/Vol] 77 mg/dL Normal [facility] Comment on above: Result Comment: LDL: OPTIMAL FOR PEOPLE AT VERY HIGH RISK <70 OPTIMAL <100 NEAR OPTIMAL 100-129 BORDERLINE HIGH 130-159 HIGH 160-189 VERY HIGH >=190 Source: 2009 NCEP ATP III, ADA Guidelines Reviewed: July, Performed By: #### L 100.0005, L100.0040 #### [facility] [address] [place] [address] Cholesterol in VLDL [Mass/Vol] 18 mg/dL Normal 6-40 [facility] Comment on above: Performed By: #### L 100.0005, L100.0040 #### [facility] [address] [place] [address] LDL/HDL RATIO 1.5 Normal [facility] Comment on above: Performed By: #### L 100.0005, L100.0040 #### [facility] [address] [place] [address] Triglyceride [Mass/Vol] 92 mg/dL Normal [facility] Comment on above: Result Comment: TRIG : DESIRABLE: <150 mg/dL Performed By: #### L 100.0005, L100.0040 #### [facility] [address] [place] [address] Lipid 1996 panelon 3 Cholesterol [Mass/Vol] 148 mg/dL 130 - 200 mg/ dL [facility] Cholesterol in HDL [Mass/Vol] 53 mg/dL [facility] Cholesterol in LDL [Mass/Vol] 77 mg/dL [facility] LDL:HDL Ratio 1.5 [facility] Triglyceride [Mass/Vol] 92 mg/dL [facility] VLDL Cholesterol 18 mg/dL 6 - 40 mg/dL [facility] XR CHEST 2V FRONTAL/LATon [facility] EXERCISE STRESS WO IMAGINGon 10-20-2022 [facility] NON NUCLEAR STRESS TEST[place] [address] HEALTH INFORMATION MANAGEMENT CARDIOLOGY REPORT Patient: LAURA CASTELLANOS KATELYTaran Lucas C.N.P. [id number] [age] F Status: REG REF CARD Exam # Type/Exam [id number] CARD / NON NUCLEAR STRESS TEST DATE [...] for collaboration if needed. Report#: Dict ID [id number] / Int ID [id number] 10/21/22 1320 DANIELLE NIX C.N.P. cc: ALFRED HOOD C.N.P. << Signature on File>> Reported By: DANIELLE NIX C.N.P. Signed By: DANIELLE NIX C.N.P. Tests performed at: [place] [address] [facility] No Panel Informationon 05-01 ADEQ Comment [employer] Work Phone: COMM . [employer] [facility] [employer].; [facility] [employer] Work Phone: COMMENT Comment [facility] [employer] [facility] Emergency DepartmentBambisa.; [facility] [employer] [facility], Inc[employer] Work Phone: DIAG Comment [facility] [employer].; [employer] [facility] [employer] Work Phone: HPV RFLX Comment [facility] [employer] [facility] [employer] Work Phone: PAPSMR Comment [facility] [employer].; [employer] [facility] [employer] Work Phone: PERFORM Comment [facility] [employer], [place] [facility] [employer] Work Phone: GLUon 06-12-2020 Glucose [Mass/Vol] 78 mg/dL Normal 70 - 110 mg/dL [facility] ([place]) Comment on above: Performed By: #### Sugar JOLLY, LIPID #### [address] [address] LIPIDon 06-12-2020 Cholesterol [Mass/Vol] 131 mg/dL Normal 50 - 199 mg/d L [facility] ([place]) Comment on above: Result Comment: Chol esterol Reference Interval: Less than 200 Desirable 200-239 Borderline high risk 240 and above High risk Performed By: #### Sugar JOLLY, LIPID #### [address] [address] Cholesterol in HDL [Mass/Vol] 45 mg/dL Normal 40 - 59 mg/dL [facility] ([place]) Comment on above: Performed By: #### Sugar JOLLY, LIPID #### [address] [address] Cholesterol in LDL [Mass/Vol] 75 mg/dL Normal 0 - 129 mg/dL [facility] ([place]) Comment on above: Performed By: #### Sugar JOLLY, LIPID #### [address] [address] Triglyceride [Mass/Vol] 54 mg/dL Normal 3 - 149 mg/d L [facility] ([place]) Comment on above: Performed By: #### Sugar JOLLY, LIPID #### [address] [address] HepB SurfaceAb,Quanton 03-21 HepB SurfaceAb,Quant 449.38 mIU/mL High <8.00 [facility] Comment on above: Performed By: #### M EASLG, AHBSQ, MUMPSG, RUBIGG #### [facility] Laboratories Routine Lab [address] [place], [place] [address] Measles IgG Antibodyon 03-21 Measles IgG Ab, Qual Abnormal Negative [facility] Comment on above: Result Comment: Posi tive Presence of detectable measles virus IgG antibodies. A positive result generally indicates exposure to measles virus or previous vaccination. Performed By: #### M EASLG, AHBSQ, MUMPSG, RUBIGG #### [facility] Routine Lab [address] [place] [address] Measles IgG Antibody Normal [facility] Comment on above: Result Comment: [...] #### M EASLG, AHBSQ, MUMPSG, RUBIGG #### [facility] Routine Lab [address] [place] [address] Mumps IgG Abon 03-21-2020 Mumps IgG Ab 31.9 AU/mL Normal [facility] Reference [facility] Comment on above: Performed By: #### M EASLG, AHBSQ, MUMPSG, RUBIGG #### [facility] Routine Lab [address] [place] [address] Mumps IgG, Qual Positive Abnormal Negative [facility] Reference [facility] Comment on above: Performed By: #### M EASLG, AHBSQ, MUMPSG, RUBIGG #### [facility] Routine Lab [address] [place] [address] Rubella IgG Antibodyon 03-21 Rubella IgG Ab 3.35 Index Value Normal [facility] Comment on above: Performed By: #### M EASLG, AHBSQ, MUMPSG, RUBIGG #### [facility] Routine Lab [address] [place], [place] [id number] Rubella IgG Ab, Qual Positive Abnormal Negative [facility] Comment on above: Performed By: #### M EASLG, AHBSQ, MUMPSG, RUBIGG #### [facility] Routine Lab [address] [place], [place] [id number] Laboratory - Chemistry and C hemistry - challengeon 03-20-2020 Cholesterol [Mass/Vol] 144 mg/dL Normal 0 - 240 mg/dL [facility]; [facility] Work Phone: Cholesterol in HDL [Mass or moles/Vol] 44 mg/dL Normal 40 - 60 mg/dL [facility]; [facility] Work Phone: Cholesterol in LDL [Mass/Vol] 89 mg/dL Normal 0 - 129 mg/dL [facility]; [facility] Work Phone: Cholesterol.total/Yamileth sterol in HDL [Mass ratio] 3.3 {ratio} Normal 0.0 - 5.0 [facility]; [facility]. Work Phone: Glucose [Mass/Vol] 83 mg/dL Normal 74 - 106 mg/dL [facility]; [facility] Work Phone: Lipid 1996 panel Normal [facility]; [facility] Work Phone: Triglyceride [Mass/Vol] 53 mg/dL Normal 0 - 150 mg/d L [facility]; [facility], [facility] Work Phone: No Panel Informationon 03-20 COTININE Negative Normal [facility], [facility]. Work Phone: HepB SurfaceAb,Quant 449.38 m[iU]/mL Abnormal [facility].; [facility]. Work Phone: Measles IgG Ab, Qual Positive Abnormal [facility].; [facility], [facility]. Work Phone: Measles IgG Antibody 205.0 AU/mL Normal [facility].; [facility], [facility]. Work Phone: Mumps IgG Ab 31.9 AU/mL Normal [facility].; [facility]. Work Phone: Mumps IgG, Qual Positive Abnormal [facility].; [facility]. Work Phone: Rubella IgG Ab 3.35 {Indexlue} Normal [facility].; [facility], [facility]. Work Phone: Rubella IgG Ab, Qual Positive Abnormal [facility].; [facility], [facility]. Work Phone: Laboratory - Blood bankon ABO and Rh group Nom (Bld) Blood group AB Rh(D) positive Normal [facility].; [facility]. Work Phone: Laboratory - Coagulationon 1 05-12-2019 aPTT Coag (Bld) [Time] 27.1 s Normal 24.1 - 36.2 s [facility].; [facility]. Work Phone: INR Coag (PPP) [Relative time] 1.2 {INR} Normal [facility].; [facility]. Work Phone: PT Coag (PPP) [Time] 14.3 s Normal 11.7 - 14.9 s E [facility]; [facility] Work Phone: Laboratory - Hematology and Cell countson 03-12-2020 Erythrocyte distribution width (RBC) [Ratio] 13.2 % Normal 11.6 - 14.6 % [facility] CenterFR[facility]; [facility] Work Phone: Hematocrit (Bld) [Volume fraction] 41.1 % Normal 37 - 47 % [facility] CenterFR[facility]; [facility] Work Phone: Hemoglobin (Bld) [Mass/Vol] 12.5 g/dL Normal 12.0 - 15.0 g/dL [facility] CenterFR[facility]; [facility]. Work Phone: MCH (RBC) [Entitic mass] 25.0 pg Abnormal 27.0 - 32.0 pg [facility]; [facility]. Work Phone: MCHC (RBC) [Mass/Vol] 30.4 g/dL Abnormal 32 - 36 g/dL E [facility].; [facility]. Work Phone: MCV (RBC) [Entitic vol] 82.2 fL Normal 81 - 99 fL E [facility] [employer] [facility] Emergency DepartmentBambisa.; [facility]. Work Phone: Platelet mean volume (Bld) [Entitic vol] 10.7 fL Normal 6.2 - 12.0 fL [facility]; [facility]. Work Phone: Platelets (Bld) [#/Vol] 408 10*3/uL Normal 150 - 450 K /mm3 [facility] [employer] [facility] Emergency DepartmentSolidcore Systems; [facility]. Work Phone: RBC (Bld) [#/Vol] 5.00 10*6/uL Normal 4.2 - 5.4 {M/mm3} [facility].; [facility] Work Phone: WBC (Bld) [#/Vol] 8.6 10*3/uL Normal 4.4 - 11.0 K/mm3 [facility].; [facility] Work Phone: No Panel Informationon 03-12 ENDOMETRIAL BX/CURETTINGS See Note Normal [facility].; [facility] Work Phone: HCGSQUAL Negative Normal [facility].; [facility] Work Phone: RDW SD 39.8 fL Normal 35.1 - 43.9 fL [facility].; [facility] Work Phone: No Panel Informationon 02-16 DHEA SULF 4020 264.0 ug/dL Normal 84.8 - 378.0 ug/dL [facility].; [facility] Work Phone: ENDOMETRIAL BX/CURETTINGS See Note Normal [facility].; [facility]. Work Phone: FSH 0.4 m[iU]/mL Normal [facility].; [facility]. Work Phone: HYDROXPROG 17 28 ng/dL Normal [facility].; [facility] Work Phone: LH < 0.2 Normal [facility].; [facility] Work Phone: PROLACTIN 31.2 ng/mL Normal [facility]; [facility]. Work Phone: T4 FREE DIRECT 1.14 ng/dL Normal 0.76 - 1.46 ng/dL [facility] CenterFRESS; [facility]. Work Phone: TEST FR [id number] 13.0 pg/mL Abnormal 0.0 - 4.2 pg/mL [facility] CenterFR[facility]; [facility]. Work Phone: TSH 0.52 {uIU/mL} Normal 0.358 - 3.74 {uIU/mL} [facility] CenterFR[facility]; [facility]. Work Phone: .Auto Diffon 02-03-2020 Ammonia (P) [Mass/Vol] 0.70 10 3/mcL Normal 0.09-1.40 [facility] ([place]) Comment on above: Performed By: #### C AVTAR MARSHALL ANEU #### [address] [address] Basophils (Bld) [#/Vol] 0.00 10 3/mcL Normal 0.00-0.27 [facility] ([place]) Comment on above: Performed By: #### AVTAR FU ANEU #### [address] [address] Basophils/100 WBC (Bld) 0.3 % Normal 0.0 - 2.5 % [facility] ([place]) Comment on above: Performed By: #### AVTAR FU ANEU #### [address] [address] Eosinophils (Bld) [#/Vol] 0.10 10 3/mcL Normal 0.00-0.65 [facility] ([place]) Comment on above: Performed By: #### AVTAR FU ANEU #### [address] [address] Eosinophils/100 WBC (Bld) 1.0 % Normal 0.0 - 6.0 % [facility] ([place]) Comment on above: Performed By: #### C AVTAR MARSHALL ANEU #### [address] [address] Lymphocytes (Bld) [#/Vol] 2.10 10 3/mcL Normal 0.90-4.32 [facility] ([place]) Comment on above: Performed By: #### AVTAR FU, ANEU #### [address] [address] Lymphocytes/100 WBC (Bld) 19.9 % Abnormal 20.0 - 40.0 % [facility] ([place]) Comment on above: Performed By: #### AVTAR FU ANEU #### [address] [address] Monocytes/100 WBC (Bld) 6.3 % Normal 2.0 - 13.0 % [facility] ([place]) Comment on above: Performed By: #### AVTAR FU ANEU #### [address] [address] Neutrophils/100 WBC (Bld) 72.5 % Normal 50.0 - 75.0 % [facility] ([place]) Comment on above: Performed By: #### AVTAR FU, ANEU #### [address] [address] .NEUABSon 02-03-2020 Neutrophils (Bld) [#/Vol] 7.60 10 3/mcL Normal 2.25-8.10 [facility] ([place]) Comment on above: Performed By: #### AVTAR FU, ANEU #### [address] [address] CBCon 02-03-2020 Erythrocyte distribution width (RBC) [Ratio] 16.4 % Abnormal 11.5 - 15.5 % [facility], [facility].; [facility], Inc[facility] Comment on above: Performed By: #### AVTAR FU, ANEU #### [address] [address] Hematocrit (Bld) [Volume fraction] 34.8 % Normal 34.0 - 46.0 % [facility], [employer] [facility], [employer]. Comment on above: Performed By: #### C AVTAR MARSHALL ANEU #### [address] [address] Hemoglobin (Bld) [Mass/Vol] 11.5 G/dL Abnormal 12.0 - 16.0 g/dL [facility], [facility].; [facility], Inc[employer] Comment on above: Performed By: #### C AVTAR MARSHALL, ANEU #### [address] [address] MCH (RBC) [Entitic mass] 26.3 pg Abnormal 27.0 - 33.0 pg [facility], Inc.; [facility], Inc[employer] Comment on above: Performed By: #### C AVTAR MARSHALL ANEU #### [address] [address] MCHC (RBC) [Mass/Vol] 33.0 G/dL Normal 32.0 - 36.0 g/dL [facility], [facility].; [facility], Inc[employer] Comment on above: Performed By: #### C AVTAR MARSHALL ANEU #### [address] [address] MCV (RBC) [Entitic vol] 79.7 fL Abnormal 80.0 - 99.0 fL [facility], [employer].; [facility], [place]. Comment on above: Performed By: #### C AVTAR MARSHALL, ANEU #### [address] [address] Platelet mean volume (Bld) [Entitic vol] 9.4 fL Normal 6.6 - 10.5 fL [facility], [facility].; [facility], [employer] Comment on above: Performed By: #### C AVTAR MARSHALL, ANEU #### [address] [address] Platelets (Bld) [#/Vol] 349 10 3/mcL Normal 150-450 [facility] ([place]) Comment on above: Performed By: #### C AVTAR MARSHALL ANEU #### [facility] [address] [place] [address] RBC (Bld) [#/Vol] 4.37 10 6/mcL Normal 4.10-5.30 [facility] ([place]) Comment on above: Performed By: #### C BC, ADIFF, ANEU #### [facility] [address] [place] [address] WBC (Bld) [#/Vol] 10.50 10 3/mcL Normal 4.50-10.80 [facility] ([place]) Comment on above: Performed By: #### C BC, ADIFF, ANEU #### [facility] [address] [place] [address] Laboratory - Hematology and Cell countson 02-03-2020 Basophils (Bld) [#/Vol] 0.00 {10^3/mcL} Normal 0 .00 - 0.27 {10^3/mcL} [employer] [facility] [employer]. Work Phone: Eosinophils (Bld) [#/Vol] 0.10 {10^3/mcL} Normal 0.00 - 0.65 {10^3/mcL} [employer] [facility]. Work Phone: Lymphocytes (Bld) [#/Vol] 2.10 {10^3/mcL} Normal 0.90 - 4.32 {10^3/mcL} [employer] [facility]. Work Phone: Monocytes (Bld) [#/Vol] 0.70 {10^3/mcL} Normal 0 .09 - 1.40 {10^3/mcL} [employer] [facility]. Work Phone: Neutrophils (Bld) [#/Vol] 7.60 {10^3/mcL} Normal 2.25 - 8.10 {10^3/mcL} [employer] [facility]. Work Phone: [phone] Platelets (Bld) [#/Vol] 349 {10^3/mcL} Normal 15 0 - 450 {10^3/mcL} [employer] [facility] Re[facility]ult. RBC (Bld) [#/Vol] 4.37 {10^6/mcL} Normal 4.10 - 5.30 {10^6/mcL} [employer] [facility] [employer] WBC (Bld) [#/Vol] 10.50 {10^3/mcL} Normal 4.50 - 10.80 {10^3/mcL} [employer] [facility] Re[employer]. No Panel Informationon 02-02 Eosinophil, Absolute 0.10 {10^3/mcL} Normal 0.00 - 0.65 {10^3/mcL} [employer] [facility]. Work Phone: .Auto Diffon 02-01-2020 Ammonia (P) [Mass/Vol] 0.80 10 3/mcL Normal 0.09-1.40 [facility] ([place] Comment on above: Performed By: #### AVTAR FU ANEU #### [address] [address] Basophils (Bld) [#/Vol] 0.00 10 3/mcL Normal 0.00-0.27 [facility] ([place] Comment on above: Performed By: #### AVTAR FU ANEU #### [address] [address] Basophils/100 WBC (Bld) 0.3 % Normal 0.0-2.5 A [facility] ([place]) Comment on above: Performed By: #### AVTAR FU ANEU #### [address] [address] Eosinophils (Bld) [#/Vol] 0.10 10 3/mcL Normal 0.00-0.65 [facility] ([place] Comment on above: Performed By: #### AVTAR FU ANEU #### [address] [address] Eosinophils/100 WBC (Bld) 0.7 % Normal 0.0-6.0 [facility] ([place]) Comment on above: Performed By: #### C AVTAR MARSHALL, ANEU #### [address] [address] Lymphocytes (Bld) [#/Vol] 2.30 10 3/mcL Normal 0.90-4.32 [facility] ([place]) Comment on above: Performed By: #### C AVTAR MARSHALL, ANEU #### [address] [address] Lymphocytes/100 WBC (Bld) 20.7 % Normal 20.0-40.0 [facility] ([place]) Comment on above: Performed By: #### C AVTAR MARSHALL, ANEU #### [address] [address] Monocytes/100 WBC (Bld) 7.7 % Normal 2.0-13.0 [facility] ([place]) Comment on above: Performed By: #### C AVTAR MARSHALL, ANEU #### [address] [address] Neutrophils/100 WBC (Bld) 70.6 % Normal 50.0-75.0 [facility] ([place]) Comment on above: Performed By: #### C AVTAR MARSHALL, ANEU #### [address] [address] .NEUABSon 02-01-2020 Neutrophils (Bld) [#/Vol] 7.80 10 3/mcL Normal 2.25-8.10 [facility] ([place]) Comment on above: Performed By: #### C AVTAR MARSHALL, ANEU #### [address] [address] CBCon 02-01-2020 Erythrocyte distribution width (RBC) [Ratio] 16.2 % High 11.5-15.5 [facility] ([place]) Comment on above: Performed By: #### C AVTAR MARSHALL, ANEU #### [address] [address] Hematocrit (Bld) [Volume fraction] 36.8 % Normal 34.0-46.0 [facility] ([place]) Comment on above: Performed By: #### AVTAR FU ANEU #### [address] [address] Hemoglobin (Bld) [Mass/Vol] 12.0 G/dL Normal 12.0-16.0 [facility] ([place]) Comment on above: Performed By: #### AVTAR FU, ANEU #### [address] [address] MCH (RBC) [Entitic mass] 26.1 pg Low 27.0-33.0 [facility] ([place]) Comment on above: Performed By: #### AVTAR FU, ANEU #### [address] [address] MCHC (RBC) [Mass/Vol] 32.7 G/dL Normal 32.0-36.0 [facility] ([place]) Comment on above: Performed By: #### C AVTAR MARSHALL, MANJU #### [address] [address] MCV (RBC) [Entitic vol] 80.0 fL Normal 80.0-99.0 A [facility] ([place]) Comment on above: Performed By: #### C AVTAR MARSHALL, ANEU #### [address] [address] Platelet mean volume (Bld) [Entitic vol] 8.4 fL Normal 6.6-10.5 [facility] ([place]) Comment on above: Performed By: #### C AVTAR MARSHALL, ANEU #### [address] [address] Platelets (Bld) [#/Vol] 336 10 3/mcL Normal 150-450 [facility] ([place]) Comment on above: Performed By: #### AVTAR FU, MANJU #### [address] [address] RBC (Bld) [#/Vol] 4.60 10 6/mcL Normal 4.10-5.30 [facility] ([place]) Comment on above: Performed By: #### C AVTAR MARSHALL, ANEU #### [address] [address] WBC (Bld) [#/Vol] 11.10 10 3/mcL High 4.50-10.80 [facility] ([place]) Comment on above: Performed By: #### C AVTAR MARSHALL, ANEU #### [address] [address] GLUon 12-27-2019 Glucose [Mass/Vol] 92 mg/dL Normal 70 - 110 mg/dL [facility] ([place]) Comment on above: Performed By: #### Sugar OJLLY, LIPID #### [address] [address] LIPIDon 12-27-2019 Cholesterol [Mass/Vol] 148 mg/dL Normal 50 - 199 mg/d L [facility] ([place]) Comment on above: Result Comment: Chol esterol Reference Interval: Less than 200 Desirable 200-239 Borderline high risk 240 and above High risk Performed By: #### Sugar JOLLY, LIPID #### [place] [address] Cholesterol in HDL [Mass/Vol] 48 mg/dL Normal 40 - 59 mg/dL [facility] ([place]) Comment on above: Performed By: #### Sugar JOLLY, LIPID #### [place] [address] Cholesterol in LDL [Mass/Vol] 81 mg/dL Normal 0 - 129 mg/dL [facility] ([place]) Comment on above: Performed By: #### Sugar JOLLY, LIPID #### [place] [address] Triglyceride [Mass/Vol] 97 mg/dL Normal 3 - 149 mg/d L [facility] ([place]) Comment on above: Performed By: #### Sugar JOLLY, LIPID #### [address] [address] HBSABon 07-21-2019 Hep B Surf Ab >1000.0 Normal [facility] ([place]) Comment on above: Result Comment: Anti -HBs [...] infection. Performed By: #### H BSAB #### [place] [address] Laboratory - Chemistry and C hemistry - challengeon 10-19-2017 Albumin BCP dye [Mass/Vol] 3.9 g/dL Normal 3.2 - 4.8 g/dL [facility], [facility].; [facility], [facility]. Albumin/Globulin [Mass ratio] 1.0 {ratio} Normal 0.9 - 1.6 {ratio} [facility], [facility]. ALP [Catalytic activity/Vol] 70 U/L Normal 38 - 126 U/L [facility].; [facility], [facility]. ALT No additional P-5'-P [Catalytic activity/Vol] 20 U/L Normal 10 - 49 U/L [facility].; [facility], [facility]. ALT With P-5'-P [Catalytic activity/Vol] 20 U/L Normal 10 - 49 U/L [facility].; [facility], [facility]. AST [Catalytic activity/Vol] 10 U/L Normal 8 - 34 U/L [facility], [facility].; [facility], [facility]. AST With P-5'-P [Catalytic activity/Vol] 10 U/L Normal 8 - 34 U/L [facility], [facility].; [facility], [facility]. Bilirubin [Mass/Vol] 0.4 mg/dL Normal 0.2 - 1.2 mg/dL [facility]; [facility] Calcium [Mass/Vol] 10.1 mg/dL Normal 8.4 - 10. 1 mg/dL [facility]; [facility] Chloride [Moles/Vol] 106 mmol/L Normal 98 - 110 meq/L [facility]; [facility] CO2 [Moles/Vol] 24 mmol/L Normal 22 - 32 meq/L [facility].; [facility] Creatinine [Mass/Vol] 0.70 mg/dL Normal 0.50 - 1.20 mg/dL [facility]; [facility] GFR/1.73 sq M.predicted among blacks MDRD (S/P/Bld) [Vol rate/Area] mL/min/{1.73_m2} Normal [facility]; [facility] Work Phone: GFR/1.73 sq M.predicted among non-blacks MDRD (S/P/Bld) [Vol rate/Area] mL/min/{1.73_m2} Normal [facility].; [facility], [facility] Work Phone: Globulin (S) [Mass/Vol] 3.9 g/dL Abnormal 1.5 - 3.8 g/ dL [facility]; [facility] Glucose [Mass/Vol] 85 mg/dL Normal 70 - 110 mg/dL [facility]; [facility] Potassium [Moles/Vol] 4.1 mmol/L Normal 3.5 - 5.0 meq/ L [facility]; [facility], [facility] Protein [Mass/Vol] 7.8 g/dL Normal 6.0 - 8.5 g/dL [facility].; [facility] Sodium [Moles/Vol] 142 mmol/L Normal 136 - 145 meq/L [facility].; [facility] TSH Qn 0.440 m[IU]/L Normal 0.360 - 3.740 {mcIU/mL} [facility].; [facility] Urea nitrogen [Mass/Vol] 10.0 mg/dL Normal 8.0 - 22.0 mg/dL [facility]; [facility] Urea nitrogen/Creatinine [Mass ratio] 14.3 {ratio} Normal 10.0 - 22.0 {ratio} [facility].; [facility] Laboratory - Hematology and Cell countson 10-19-2017 Basophils (Bld) [#/Vol] 0.00 {10^3/mcL} Normal 0 .00 - 0.27 {10^3/mcL} [facility].; [facility] Work Phone: Basophils/100 WBC (Bld) 0.4 % Normal 0.0 - 2.5 % [facility]; [facility] Work Phone: Eosinophils (Bld) [#/Vol] 0.00 {10^3/mcL} Normal 0.00 - 0.65 {10^3/mcL} [facility].; [facility] Work Phone: Eosinophils/100 WBC (Bld) 0.4 % Normal 0.0 - 6.0 % [facility].; [facility] Work Phone: Erythrocyte distribution width (RBC) [Ratio] 14.6 % Normal 11.5 - 15.5 % [facility].; [facility] Hematocrit (Bld) [Volume fraction] 38.0 % Normal 34.0 - 46.0 % [facility]; [facility] Hemoglobin (Bld) [Mass/Vol] 12.6 g/dL Normal 12.0 - 16.0 g/dL [facility].; [facility], [facility] Lymphocytes (Bld) [#/Vol] 1.30 {10^3/mcL} Normal 0.90 - 4.32 {10^3/mcL} [facility].; [facility] Work Phone: Lymphocytes/100 WBC (Bld) 16.8 % Abnormal 20.0 - 40.0 % [facility].; [facility] Work Phone: MCH (RBC) [Entitic mass] 26.8 pg Abnormal 27.0 - 33.0 pg [facility].; [facility], [facility] MCHC (RBC) [Mass/Vol] 33.0 g/dL Normal 32.0 - 36.0 g/dL [facility].; [facility], [facility] MCV (RBC) [Entitic vol] 81.1 fL Normal 80.0 - 99.0 fL [facility]; [facility] Monocytes (Bld) [#/Vol] 0.50 {10^3/mcL} Normal 0 .09 - 1.40 {10^3/mcL} [facility].; [facility], [facility]. Work Phone: Monocytes/100 WBC (Bld) 6.9 % Normal 2.0 - 13.0 % [facility].; [facility]. Work Phone: Neutrophils (Bld) [#/Vol] 6.00 {10^3/mcL} Normal 2.25 - 8.10 {10^3/mcL} [facility].; [facility]. Work Phone: Neutrophils/100 WBC (Bld) 75.5 % Abnormal 50.0 - 75.0 % [employer] [facility] [employer] [place]. Work Phone: Platelet mean volume (Bld) [Entitic vol] 10.0 fL Normal 6.6 - 10.5 fL [facility] [employer].; [facility] [employer] [place]. Platelets (Bld) [#/Vol] 316 {10^3/mcL} Normal 15 0 - 450 {10^3/mcL} [facility] [employer].; [facility] [employer] RBC (Bld) [#/Vol] 4.69 {10^6/mcL} Normal 4.10 - 5.30 {10^6/mcL} [employer] [facility] [employer] WBC (Bld) [#/Vol] 8.00 {10^3/mcL} Normal 4.50 - 10.80 {10^3/mcL} [employer] [facility] [employer] [place]. No Panel Informationon 10-19 Electrolyte Balance 12.0 meq/L Normal 4.0 - 15 .0 meq/L [facility] [employer].; [employer] [facility] [employer] [place]. Eosinophil, Absolute 0.00 {10^3/mcL} Normal 0.00 - 0.65 {10^3/mcL} [employer] [facility] [employer] Work Phone: Laboratory - Chemistry and C hemistry - challengeon 07-13-2017 Hemoglobin.gastrointest inal Ql (Stl) Negative Normal [employer] [facility] [employer] [facility] [employer] Laboratory - Coagulationon 0 07-08-2017 Clotting time.intrinsic coagulation system activated Rotational TEG (Bld) 80.4 {sec} Abnormal 43.0 - 78.0 {sec} [employer] [facility] [employer] Work Phone: Laboratory - Hematology and Cell countson 07-08-2017 Basophils (Bld) [#/Vol] 0.00 {x10EE3/UL} Normal 0.00 - 0.10 {x10EE3/UL} [facility]; [facility] Work Phone: Basophils/100 WBC (Bld) 0.5 % Normal 0.0 - 2.0 % [facility] CenterFR[facility]; [facility]. Work Phone: Eosinophils (Bld) [#/Vol] 0.20 {x10EE3/UL} Normal 0.00 - 0.50 {x10EE3/UL} [facility].; [facility]. Work Phone: Eosinophils/100 WBC (Bld) 2.6 % Normal 0.0 - 7.0 % [facility] CenterFR[facility]; [facility]. Work Phone: Erythrocyte distribution width (RBC) [Ratio] 13.9 % Normal 12.0 - 15.6 % [facility]; [facility] Work Phone: Hematocrit (Bld) [Volume fraction] 34.5 % Normal 34.0 - 46.0 % [facility]; [facility] Work Phone: Hemoglobin (Bld) [Mass/Vol] 11.5 g/dL Abnormal 12.0 - 16.0 g/dL [facility]; [facility]. Work Phone: Lymphocytes (Bld) [#/Vol] 2.50 {x10EE3/UL} Normal 0.80 - 2.80 {x10EE3/UL} [facility]; [facility]. Work Phone: Lymphocytes/100 WBC (Bld) 26.3 % Normal 20.0 - 45.0 % [facility].; [facility]. Work Phone: MCH (RBC) [Entitic mass] 27 pg Normal 27 - 33 pg [facility].; [facility]. Work Phone: MCHC (RBC) [Mass/Vol] 33 {X10_3} Normal 32 - 36 {X10_3 } [facility].; [facility]. Work Phone: MCV (RBC) [Entitic vol] 81 fL Normal 80 - 99 fL [facility].; [facility]. Work Phone: Monocytes (Bld) [#/Vol] 0.60 {x10EE3/UL} Normal 0.20 - 1.00 {x10EE3/UL} [facility].; [facility]. Work Phone: Monocytes/100 WBC (Bld) 6.5 % Normal 0.0 - 10.0 % [facility].; [facility]. Work Phone: Morphology Osei (Bld) [Interp] N/A Normal [facility].; [facility]. Work Phone: Neutrophils (Bld) [#/Vol] 6.10 {x10EE3/UL} Normal 1.50 - 7.10 {x10EE3/UL} [facility].; [facility]. Work Phone: Neutrophils/100 WBC (Bld) 64.1 % Normal 46.0 - 76.0 % [facility].; [facility]. Work Phone: Platelet mean volume (Bld) [Entitic vol] 9.5 fL Normal 6.6 - 10.5 fL [facility].; [facility] [employer] [facility] DepartmentB[facility]isa. Work Phone: Platelets (Bld) [#/Vol] 299 {x10EE3/UL} Normal 1 50 - 450 {x10EE3/UL} [facility] [employer] [facility] [employer] [facility] DepartmentB[facility]isa. Work Phone: RBC (Bld) [#/Vol] 4.28 {x_10EE6/UL} Normal 4.10 - 5.30 {x_10EE6/UL} [facility] [employer] [facility] [employer]. Work Phone: WBC (Bld) [#/Vol] 9.5 {x_10EE3/UL} Normal 4.5 - 10.8 {x_10EE3/UL} [facility].; [facility] [employer]. Work Phone: No Panel Informationon 07-08 MANUAL DIFF N/A Normal [facility]; [facility] [employer]. Work Phone: Laboratory - Coagulationon 0 07-07-2017 Clotting time.intrinsic coagulation system activated Rotational TEG (Bld) 65.8 {sec} Normal 43.0 - 78.0 {sec} [facility].; [facility] [employer]. Work Phone: Laboratory - Hematology and Cell countson 07-07-2017 Basophils (Bld) [#/Vol] 0.00 {x10EE3/UL} Normal 0.00 - 0.10 {x10EE3/UL} [employer].; [facility] [employer]. Work Phone: Basophils/100 WBC (Bld) 0.5 % Normal 0.0 - 2.0 % [facility].; [facility] [employer]. Work Phone: Eosinophils (Bld) [#/Vol] 0.20 {x10EE3/UL} Normal 0.00 - 0.50 {x10EE3/UL} [facility]; [facility] Work Phone: Eosinophils/100 WBC (Bld) 2.0 % Normal 0.0 - 7.0 % [facility]; [facility] Work Phone: Erythrocyte distribution width (RBC) [Ratio] 14.2 % Normal 12.0 - 15.6 % [facility]; [facility] Work Phone: Hematocrit (Bld) [Volume fraction] 33.3 % Abnormal 34.0 - 46.0 % [facility]; [facility] Work Phone: Hemoglobin (Bld) [Mass/Vol] 11.1 g/dL Abnormal 12.0 - 16.0 g/dL [facility]; [facility]. Work Phone: Lymphocytes (Bld) [#/Vol] 2.40 {x10EE3/UL} Normal 0.80 - 2.80 {x10EE3/UL} [facility].; [facility]. Work Phone: Lymphocytes/100 WBC (Bld) 24.1 % Normal 20.0 - 45.0 % [facility]; [facility] Work Phone: MCH (RBC) [Entitic mass] 27 pg Normal 27 - 33 pg [facility]; [facility] Work Phone: MCHC (RBC) [Mass/Vol] 33 {X10_3} Normal 32 - 36 {X10_3 } [facility]; [facility]. Work Phone: MCV (RBC) [Entitic vol] 81 fL Normal 80 - 99 fL E [facility].; [facility]. Work Phone: Monocytes (Bld) [#/Vol] 0.70 {x10EE3/UL} Normal 0.20 - 1.00 {x10EE3/UL} [facility].; [facility]. Work Phone: Monocytes/100 WBC (Bld) 6.9 % Normal 0.0 - 10.0 % [facility].; [facility]. Work Phone: Morphology Osei (Bld) [Interp] N/A Normal [facility].; [facility]. Work Phone: Neutrophils (Bld) [#/Vol] 6.50 {x10EE3/UL} Normal 1.50 - 7.10 {x10EE3/UL} [facility].; [facility]. Work Phone: Neutrophils/100 WBC (Bld) 66.5 % Normal 46.0 - 76.0 % [facility].; [facility]. Work Phone: Platelet mean volume (Bld) [Entitic vol] 9.5 fL Normal 6.6 - 10.5 fL [facility] [employer] [facility] DepartmentB[facility].; [facility]. Work Phone: Platelets (Bld) [#/Vol] 290 {x10EE3/UL} Normal 1 50 - 450 {x10EE3/UL} [facility].; [facility]. Work Phone: RBC (Bld) [#/Vol] 4.10 {x_10EE6/UL} Normal 4.10 - 5.30 {x_10EE6/UL} [employer] [facility] [employer]. Work Phone: WBC (Bld) [#/Vol] 9.8 {x_10EE3/UL} Normal 4.5 - 10.8 {x_10EE3/UL} [facility].; [facility] [employer]. Work Phone: No Panel Informationon 07-07 MANUAL DIFF N/A Normal [facility]; [facility] [employer]. Work Phone: Laboratory - Coagulationon 0 07-06-2017 Clotting time.intrinsic coagulation system activated Rotational TEG (Bld) 61.0 {sec} Normal 43.0 - 78.0 {sec} [facility] [employer].; [employer] [facility]. Work Phone: Clotting time.intrinsic coagulation system activated Rotational TEG (Bld) 61.6 {sec} Normal 43.0 - 78.0 {sec} [employer].; [employer] [facility] [employer]. Work Phone: Laboratory - Hematology and Cell countson 07-06-2017 Basophils (Bld) [#/Vol] 0.10 {x10EE3/UL} Normal 0.00 - 0.10 {x10EE3/UL} [employer].; [facility] [employer]. Work Phone: Basophils/100 WBC (Bld) 0.7 % Normal 0.0 - 2.0 % [place]; [employer] [facility] [employer]. Work Phone: Eosinophils (Bld) [#/Vol] 0.10 {x10EE3/UL} Normal 0.00 - 0.50 {x10EE3/UL} [facility] [employer].; [facility] [employer]. Work Phone: Eosinophils/100 WBC (Bld) 1.7 % Normal 0.0 - 7.0 % [facility]; [facility] Work Phone: Erythrocyte distribution width (RBC) [Ratio] 14.1 % Normal 12.0 - 15.6 % [facility]; [facility]. Work Phone: Hematocrit (Bld) [Volume fraction] 33.2 % Abnormal 34.0 - 46.0 % [facility].; [facility] Work Phone: Hemoglobin (Bld) [Mass/Vol] 11.1 g/dL Abnormal 12.0 - 16.0 g/dL [facility]; [facility] Work Phone: Lymphocytes (Bld) [#/Vol] 2.80 {x10EE3/UL} Normal 0.80 - 2.80 {x10EE3/UL} [facility].; [facility]. Work Phone: Lymphocytes/100 WBC (Bld) 32.2 % Normal 20.0 - 45.0 % [facility]; [facility] Work Phone: MCH (RBC) [Entitic mass] 27 pg Normal 27 - 33 pg [facility]; [facility] Work Phone: MCHC (RBC) [Mass/Vol] 33 {X10_3} Normal 32 - 36 {X10_3 } [facility].; [facility]. Work Phone: MCV (RBC) [Entitic vol] 80 fL Normal 80 - 99 fL E [facility].; [facility] Work Phone: Monocytes (Bld) [#/Vol] 0.80 {x10EE3/UL} Normal 0.20 - 1.00 {x10EE3/UL} [facility].; [facility]. Work Phone: Monocytes/100 WBC (Bld) 8.7 % Normal 0.0 - 10.0 % [facility].; [facility]. Work Phone: Morphology Osei (Bld) [Interp] N/A Normal [facility].; [facility]. Work Phone: Neutrophils (Bld) [#/Vol] 4.90 {x10EE3/UL} Normal 1.50 - 7.10 {x10EE3/UL} [facility].; [facility]. Work Phone: Neutrophils/100 WBC (Bld) 56.7 % Normal 46.0 - 76.0 % [facility].; [facility]. Work Phone: Platelet mean volume (Bld) [Entitic vol] 9.5 fL Normal 6.6 - 10.5 fL [facility].; [facility]. Work Phone: Platelets (Bld) [#/Vol] 320 {x10EE3/UL} Normal 1 50 - 450 {x10EE3/UL} [facility].; [facility]. Work Phone: RBC (Bld) [#/Vol] 4.13 {x_10EE6/UL} Normal 4.10 - 5.30 {x_10EE6/UL} [facility].; [facility]. Work Phone: WBC (Bld) [#/Vol] 8.7 {x_10EE3/UL} Normal 4.5 - 10.8 {x_10EE3/UL} [facility]; [facility]. Work Phone: No Panel Informationon 07-06 MANUAL DIFF N/A Normal [facility]; [facility]. Work Phone: Laboratory - Chemistry and C hemistry - challengeon 07-05-2017 Anion gap [Moles/Vol] 16 mmol/L Normal 10 - 20 mmol/L [facility]; [facility]. Work Phone: Calcium [Mass/Vol] 9.4 mg/dL Normal 8.6 - 10. 2 mg/dL [facility]; [facility]. Work Phone: Chloride [Moles/Vol] 105 mmol/L Normal 98 - 107 mmol/L [facility]; [facility]. Work Phone: CO2 [Moles/Vol] 21.1 mmol/L Normal 21.0 - 31.0 mmol/L [facility]; [facility] Work Phone: Creatinine [Mass/Vol] 0.8 mg/dL Normal 0.6 - 1.2 mg/d L [facility]; [facility]. Work Phone: GFR/1.73 sq M.predicted among blacks MDRD (S/P/Bld) [Vol rate/Area] mL/min/{1.73_m2} Normal 60 - 999 {ML/MINUTE} [facility].; [facility]. Work Phone: GFR/1.73 sq M.predicted MDRD (S/P/Bld) [Vol rate/Area] mL/min/{1.73_m2} Normal 60 - 999 {ML/MINUTE} [facility]; [facility] Work Phone: Glucose [Mass/Vol] 113 mg/dL Abnormal 74 - 106 mg/dL [facility]; [facility] Work Phone: Potassium [Moles/Vol] 3.7 mmol/L Normal 3.5 - 5.1 mmol/L [facility]; [facility] Work Phone: Sodium [Moles/Vol] 138 mmol/L Normal 136 - 145 mmol/L [facility]; [facility] Work Phone: Urea nitrogen [Mass/Vol] 13 mg/dL Normal 6 - 20 mg/dL [facility]; [facility] Work Phone: Laboratory - Coagulationon 0 07-05-2017 aPTT Coag (Bld) [Time] 23.1 s Normal 21.6 - 35.4 {sec} [facility]; [facility] Work Phone: aPTT Coag (Bld) [Time] 75.3 s Abnormal 21.6 - 35.4 {sec} [facility]; [facility] Work Phone: Clotting time.intrinsic coagulation system activated Rotational TEG (Bld) 64.8 {sec} Normal 43.0 - 78.0 {sec} [facility]; [facility] Work Phone: INR Coag (PPP) [Relative time] 1.1 {INR} Normal 0.8 - 1.2 [facility]; [facility] Work Phone: PT Coag (Bld) [Time] 13.0 s Normal [facility].; [facility]. Work Phone: Laboratory - Hematology and Cell countson 07-05-2017 Basophils (Bld) [#/Vol] 0.10 {x10EE3/UL} Normal 0.00 - 0.10 {x10EE3/UL} [facility].; [facility]. Work Phone: Basophils/100 WBC (Bld) 0.7 % Normal 0.0 - 2.0 % [facility].; [facility]. Work Phone: CBC panel Auto (Bld) Normal [facility] CenterFR[facility]; [facility]. Work Phone: Eosinophils (Bld) [#/Vol] 0.10 {x10EE3/UL} Normal 0.00 - 0.50 {x10EE3/UL} [facility].; [facility]. Work Phone: Eosinophils/100 WBC (Bld) 0.8 % Normal 0.0 - 7.0 % [facility].; [facility], [facility]. Work Phone: Erythrocyte distribution width (RBC) [Ratio] 13.9 % Normal 12.0 - 15.6 % [facility].; [facility]. Work Phone: Hematocrit (Bld) [Volume fraction] 38.0 % Normal 34.0 - 46.0 % [facility].; [facility]. Work Phone: Hemoglobin (Bld) [Mass/Vol] 12.7 g/dL Normal 12.0 - 16.0 g/dL [facility].; [facility]. Work Phone: Lymphocytes (Bld) [#/Vol] 2.20 {x10EE3/UL} Normal 0.80 - 2.80 {x10EE3/UL} [facility].; [facility]. Work Phone: Lymphocytes/100 WBC (Bld) 19.9 % Abnormal 20.0 - 45.0 % [facility].; [facility]. Work Phone: MCH (RBC) [Entitic mass] 27 pg Normal 27 - 33 pg [facility].; [facility]. Work Phone: MCHC (RBC) [Mass/Vol] 33 {X10_3} Normal 32 - 36 {X10_3 } [facility].; [facility]. Work Phone: MCV (RBC) [Entitic vol] 80 fL Normal 80 - 99 fL [facility].; [facility]. Work Phone: Monocytes (Bld) [#/Vol] 1.00 {x10EE3/UL} Normal 0.20 - 1.00 {x10EE3/UL} [facility].; [facility]. Work Phone: Monocytes/100 WBC (Bld) 8.7 % Normal 0.0 - 10.0 % [facility].; [facility]. Work Phone: Morphology Osei (Bld) [Interp] N/A Normal [facility].; [facility]. Work Phone: Neutrophils (Bld) [#/Vol] 7.90 {x10EE3/UL} Abnormal 1.50 - 7.10 {x10EE3/UL} [facility].; [facility]. Work Phone: Neutrophils/100 WBC (Bld) 69.9 % Normal 46.0 - 76.0 % [facility] [employer] [facility].; [facility] [employer] [facility] DepartmentB[facility]. Work Phone: Platelet mean volume (Bld) [Entitic vol] 9.1 fL Normal 6.6 - 10.5 fL [facility].; [facility] [employer] Work Phone: Platelets (Bld) [#/Vol] 389 {x10EE3/UL} Normal 1 50 - 450 {x10EE3/UL} [facility] [employer] [facility] Department[facility].; [facility] [employer] [facility] DepartmentB[facility]. Work Phone: RBC (Bld) [#/Vol] 4.76 {x_10EE6/UL} Normal 4.10 - 5.30 {x_10EE6/UL} [facility].; [facility] [employer] [facility] DepartmentB[facility]. Work Phone: WBC (Bld) [#/Vol] 11.3 {x_10EE3/UL} Abnormal 4.5 - 10.8 {x_10EE3/UL} [facility].; [facility] [employer] [place]. Work Phone: No Panel Informationon 07-05 AGE 22 {years} Normal [facility].; [facility] [employer]. Work Phone: BMP with eGFR Normal [facility].; [facility] [employer]. Work Phone: MANUAL DIFF N/A Normal [facility] [employer].; [facility] [employer]. Work Phone: PROTHROMBIN TIME AND INR Normal [facility].; [facility]. Work Phone: Laboratory - Hematology and Cell countson 06-24-2017 Basophils (Bld) [#/Vol] 0.00 {x10EE3/UL} Normal 0.00 - 0.10 {x10EE3/UL} [facility].; [facility] Work Phone: Basophils/100 WBC (Bld) 0.4 % Normal 0.0 - 2.0 % [facility].; [facility]. Work Phone: CBC panel Auto (Bld) Normal [facility]; [facility]. Work Phone: Eosinophils (Bld) [#/Vol] 0.10 {x10EE3/UL} Normal 0.00 - 0.50 {x10EE3/UL} [facility].; [facility]. Work Phone: Eosinophils/100 WBC (Bld) 1.5 % Normal 0.0 - 7.0 % [facility].; [facility]. Work Phone: Erythrocyte distribution width (RBC) [Ratio] 14.0 % Normal 12.0 - 15.6 % [facility]fG[facility] CenterFR[facility]; [facility] Work Phone: Hematocrit (Bld) [Volume fraction] 37.4 % Normal 34.0 - 46.0 % [facility].; [facility]. Work Phone: Hemoglobin (Bld) [Mass/Vol] 12.5 g/dL Normal 12.0 - 16.0 g/dL [facility].; [facility] Work Phone: Lymphocytes (Bld) [#/Vol] 1.70 {x10EE3/UL} Normal 0.80 - 2.80 {x10EE3/UL} [facility].; [facility]. Work Phone: Lymphocytes/100 WBC (Bld) 22.4 % Normal 20.0 - 45.0 % [facility].; [facility]. Work Phone: MCH (RBC) [Entitic mass] 27 pg Normal 27 - 33 pg [facility].; [facility]. Work Phone: MCHC (RBC) [Mass/Vol] 34 {X10_3} Normal 32 - 36 {X10_3 } [facility].; [facility]. Work Phone: MCV (RBC) [Entitic vol] 81 fL Normal 80 - 99 fL E [facility].; [facility]. Work Phone: Monocytes (Bld) [#/Vol] 0.60 {x10EE3/UL} Normal 0.20 - 1.00 {x10EE3/UL} [facility].; [facility]. Work Phone: Monocytes/100 WBC (Bld) 8.4 % Normal 0.0 - 10.0 % [facility].; [facility]. Work Phone: Morphology Osei (Bld) [Interp] N/A Normal [facility].; [facility]. Work Phone: Neutrophils (Bld) [#/Vol] 5.20 {x10EE3/UL} Normal 1.50 - 7.10 {x10EE3/UL} [facility].; [facility], [place]. Work Phone: Neutrophils/100 WBC (Bld) 67.3 % Normal 46.0 - 76.0 % [facility].; [facility]. Work Phone: Platelet mean volume (Bld) [Entitic vol] 9.3 fL Normal 6.6 - 10.5 fL [facility] [employer].; [facility]. Work Phone: Platelets (Bld) [#/Vol] 276 {x10EE3/UL} Normal 1 50 - 450 {x10EE3/UL} [facility] [employer] [facility].; [facility]. Work Phone: RBC (Bld) [#/Vol] 4.62 {x_10EE6/UL} Normal 4.10 - 5.30 {x_10EE6/UL} [facility] [employer] [facility].; [facility] [employer] [facility] DepartmentB[facility]. Work Phone: WBC (Bld) [#/Vol] 7.7 {x_10EE3/UL} Normal 4.5 - 10.8 {x_10EE3/UL} [facility] [employer] [facility] DepartmentB[facility].; [facility] [employer] [facility] DepartmentB[facility]. Work Phone: No Panel Informationon 06-24 INTERNAL QC PASS Normal [facility] [employer]; [facility] [employer] [facility] DepartmentB[facility]. Work Phone: MANUAL DIFF N/A Normal [facility] [employer] [facility] DepartmentB[facility].; [facility]. Work Phone: Observation duration YES Normal [facility] [employer].; [facility] [employer] [facility] DepartmentB[facility]. Work Phone: UR Negative Normal [facility].; [facility] [employer] [facility] DepartmentB[facility]. Work Phone: Laboratory - Hematology and Cell countson 07-09-2015 Basophils/100 WBC (Bld) 0.4 % Normal 0.0 - 2.5 % [facility] [employer].; [facility] Eosinophils/100 WBC (Bld) 1.8 % Normal 0.0 - 6.0 % [facility]; [facility], [facility] Erythrocyte distribution width (RBC) [Ratio] 13.5 % Normal 11.5 - 15.5 % [facility]; [facility] Hematocrit (Bld) [Volume fraction] 34.4 % Normal 34.0 - 46.0 % [facility]; [facility], [facility] Hemoglobin (Bld) [Mass/Vol] 11.4 g/dL Abnormal 12.0 - 16.0 g/dL [facility]; [facility], [facility] Lymphocytes/100 WBC (Bld) 18.8 % Abnormal 20.0 - 40.0 % [facility]; [facility], [facility] MCH (RBC) [Entitic mass] 27.3 pg Normal 27.0 - 33.0 pg [facility]; [facility], [facility] MCHC (RBC) [Mass/Vol] 33.1 g/dL Normal 32.0 - 36.0 g/dL [facility], [facility]. MCV (RBC) [Entitic vol] 82.4 fL Normal 80.0 - 99.0 fL [facility]; [facility], [facility] Monocytes/100 WBC (Bld) 9.4 % Normal 2.0 - 13.0 % [facility], [facility] Neutrophils (Bld) [#/Vol] 5.00 {10_3/mcL} Normal 1.90 - 7.90 {10_3/mcL} [facility].; [facility], [facility] Neutrophils/100 WBC (Bld) 69.6 % Normal 50.0 - 75.0 % [facility].; [facility], [facility] Platelet mean volume (Bld) [Entitic vol] 9.5 fL Normal 6.6 - 10.5 fL [facility]; [facility]. Platelets (Bld) [#/Vol] 305 {10_3/mcL} Normal 15 0 - 450 {10_3/mcL} [facility].; [facility], [facility]. RBC (Bld) [#/Vol] 4.18 {10_6/mcL} Normal 4.10 - 5.30 {10_6/mcL} [facility].; [facility]. WBC (Bld) [#/Vol] 7.10 {10_3/mcL} Normal 4.50 - 10.80 {10_3/mcL} [facility].; [facility], [place]. Laboratory - Hematology and Cell countson 05-30-2011 Hematocrit (Bld) [Volume fraction] 35.2 % Normal 34.0 - 46.0 % [facility] [employer] [facility].; [facility] [employer] [facility]. Work Phone: Hemoglobin (Bld) [Mass/Vol] 11.9 g/dL Abnormal 12.0 - 16.0 g/dL [facility] [employer] [facility].; [facility] [employer] [facility]. Work Phone: Vital Signs Date Time Vital Sign Value Performing Clinician Facility 12-26-2024 14:43-0400 Body height 165.[address] Aldo Rodriguez DO Work Phone: [facility] 12-26-2024 14:43-0400 Body mass index (BMI) [Ratio] 41.6 kg/m2 Dr. Aldo Rodriguez DO Work Phone: [facility] 12-26-2024 14:43-0400 Body weight 113.[address] Aldo Rodriguez DO Work Phone: [facility] 12-26-2024 14:38-0400 Diastolic blood pressure 70 mm[Hg] Dr. Aldo Rodriguez DO Work Phone: [facility] 12-26-2024 14:38-0400 Heart rate 77 /min Dr. Aldo Rodriguez DO Work Phone: [facility] 12-26-2024 14:38-0400 Systolic blood pressure 136 mm[Hg] Dr. Aldo Rodriguez DO Work Phone: [facility] 12-22-2024 15:36-0400 Body mass index (BMI) [Ratio] 41.48 kg/m2 Lisandro Palencia MD Work Phone: [facility] 12-22-2024 15:36-0400 Body weight 116.57 kg Lisandro Palencia MD Work Phone: [facility] 12-22-2024 15:36-0400 Diastolic blood pressure 64 mm[Hg] Lisandro Palencia MD Work Phone: [facility] 12-22-2024 15:36-0400 Systolic blood pressure 120 mm[Hg] Lisandro Palencia MD Work Phone: [facility] 12-06-2024 14:28-0400 Body mass index (BMI) [Ratio] 41 kg/m2 Ashley Mishra TABLET MACHINE OPERATOR.CNM Work Phone: [facility] 12-06-2024 14:28-0400 Body weight 115.21 kg Ashley Mishra TABLET MACHINE OPERATOR.CNM Work Phone: [facility] 12-06-2024 14:28-0400 Diastolic blood pressure 64 mm[Hg] Ashley Mishra TABLET MACHINE OPERATOR.CNM Work Phone: [facility] 12-06-2024 14:28-0400 Systolic blood pressure 120 mm[Hg] Ashley Mishra TABLET MACHINE OPERATOR.CNM Work Phone: [facility] 11-23-2024 15:39-0400 Body mass index (BMI) [Ratio] 41 kg/m2 Yasmin Delvalle MD Work Phone: [facility] 11-23-2024 15:39-0400 Body weight 115.21 kg Yasmin Delvalle MD Work Phone: [facility] 11-23-2024 15:39-0400 Diastolic blood pressure 64 mm[Hg] Yasmin Delvalle MD Work Phone: [facility] 11-23-2024 15:39-0400 Systolic blood pressure 116 mm[Hg] Yasmin Delvalle MD Work Phone: [facility] 10-26-2024 14:39-0400 Body mass index (BMI) [Ratio] 39.71 kg/m2 Yasmin Delvalle MD Work Phone: [facility] 10-26-2024 14:39-0400 Body weight 111.58 kg Yasmin Delvalle MD Work Phone: [facility] 10-26-2024 14:39-0400 Diastolic blood pressure 68 mm[Hg] Yasmin Delvalle MD Work Phone: [facility] 10-26-2024 14:39-0400 Systolic blood pressure 116 mm[Hg] Yasmin Delvalle MD Work Phone: [facility] 10-21-2024 16:22-0400 Body temperature 98.6 [degF] Dr. Aldo Rodriguez DO Work Phone: [facility] 10-21-2024 16:22-0400 Diastolic blood pressure 59 mm[Hg] Dr. Aldo Rodriguez DO Work Phone: [facility] 10-21-2024 16:22-0400 Heart rate 61 /min Dr. Aldo Rodriguez DO Work Phone: [facility] 10-21-2024 16:22-0400 Respiratory rate 22 /min Dr. Aldo Rodriguez DO Work Phone: [facility] 10-21-2024 16:22-0400 SaO2% (BldA) [Mass fraction] 99 % Dr. Aldo Rodriguez DO Work Phone: [facility] 10-21-2024 16:22-0400 Systolic blood pressure 103 mm[Hg] Dr. Aldo Rodriguez DO Work Phone: [facility] 10-21-2024 12:24-0400 Body height 165.[address] Aldo Rodriguez DO Work Phone: [facility] 10-21-2024 12:24-0400 Body mass index (BMI) [Ratio] 41 kg/m2 Dr. Aldo Rodriguez DO Work Phone: [facility] 10-21-2024 12:24-0400 Body weight 111.[address] Aldo Rodriguez DO Work Phone: [facility] 10-21-2024 11:40-0400 Body mass index (BMI) [Ratio] 39.93 kg/m2 Ashley Mishra APRN.CNM Work Phone: [facility] 10-21-2024 11:40-0400 Body weight 112.22 kg Ashley Mishra APRN.CNM Work Phone: [facility] 10-21-2024 11:40-0400 Diastolic blood pressure 74 mm[Hg] Ashley Tad TABLET MACHINE OPERATOR.CNM Work Phone: [facility] 10-21-2024 11:40-0400 Systolic blood pressure 122 mm[Hg] Ashley Tad TABLET MACHINE OPERATOR.CNM Work Phone: [facility] 09-28-2024 13:47-0400 Body mass index (BMI) [Ratio] 39.77 kg/m2 Ashleyclarissa Mishra TABLET MACHINE OPERATOR.CNM Work Phone: [facility] 09-28-2024 13:47-0400 Body weight 111.77 kg Ashley Mishra TABLET MACHINE OPERATOR.CNM Work Phone: [facility] 09-28-2024 13:47-0400 Diastolic blood pressure 70 mm[Hg] Ashley Mishra TABLET MACHINE OPERATOR.CNM Work Phone: [facility] 09-28-2024 13:47-0400 Systolic blood pressure 110 mm[Hg] Ashley Mishra TABLET MACHINE OPERATOR.CNM Work Phone: [facility] 09-06-2024 13:23-0400 Body mass index (BMI) [Ratio] 38.9 kg/m2 Ashley Mishra TABLET MACHINE OPERATOR.CNM Work Phone: [facility] 09-06-2024 13:23-0400 Body weight 109.32 kg Ashley Mishra TABLET MACHINE OPERATOR.CNM Work Phone: [facility] 09-06-2024 13:23-0400 Diastolic blood pressure 60 mm[Hg] Ashley Mishra TABLET MACHINE OPERATOR.CNM Work Phone: [facility] 09-06-2024 13:23-0400 Systolic blood pressure 98 mm[Hg] Ashley Mishra TABLET MACHINE OPERATOR.CNM Work Phone: [facility] 08-09-2024 16:09-0400 Body mass index (BMI) [Ratio] 37.61 kg/m2 Citlaly Rutherford MD Work Phone: [facility] 08-09-2024 16:09-0400 Body weight 105.69 kg Citlaly Rutherford MD Work Phone: [facility] 08-09-2024 16:09-0400 Diastolic blood pressure 60 mm[Hg] Citlaly Rutherford MD Work Phone: [facility] 08-09-2024 16:09-0400 Systolic blood pressure 106 mm[Hg] Citlaly Rutherford MD Work Phone: [facility] 06-27-2024 14:36-0400 Body height 167.6 cm Julia Bangor TABLET MACHINE OPERATOR.AGRICULTURE DEPARTMENT CHAIR Work Phone: [facility] 06-27-2024 14:36-0400 Body mass index (BMI) [Ratio] 36.67 kg/m2 Julia Bangor TABLET MACHINE OPERATOR.AGRICULTURE DEPARTMENT CHAIR Work Phone: [facility] 06-27-2024 14:36-0400 Body weight 103.06 kg Julia Mir TABLET MACHINE OPERATOR.AGRICULTURE DEPARTMENT CHAIR Work Phone: [facility] Comment on above: weight at home today was 219 06-27-2024 14:36-0400 Diastolic blood pressure 64 mm[Hg] Julia Bangor TABLET MACHINE OPERATOR.AGRICULTURE DEPARTMENT CHAIR Work Phone: [facility] 06-27-2024 14:36-0400 Systolic blood pressure 116 mm[Hg] Julia Mir TABLET MACHINE OPERATOR.AGRICULTURE DEPARTMENT CHAIR Work Phone: [facility] 05-26-2024 11:28-0500 Body mass index (BMI) [Ratio] 33.86 kg/m2 Renetta Cabrera TABLET MACHINE OPERATOR.AGRICULTURE DEPARTMENT CHAIR Work Phone: [facility] 05-26-2024 11:28-0500 Body weight 96.62 kg Renetta Cabrera APRN.AGRICULTURE DEPARTMENT CHAIR Work Phone: [facility] [facility] 05-26-2024 11:28-0500 Diastolic blood pressure 75 mm[Hg] Renetta Cabrera APRN.AGRICULTURE DEPARTMENT CHAIR Work Phone: [facility] 05-26-2024 11:28-0500 Heart rate 65 /min Renetta Cabrera APRN.AGRICULTURE DEPARTMENT CHAIR Work Phone: [facility] 05-26-2024 11:28-0500 Systolic blood pressure 124 mm[Hg] Renetta Cabrera TABLET MACHINE OPERATOR.AGRICULTURE DEPARTMENT CHAIR Work Phone: [facility] 01-27-2024 15:58-0400 Body mass index (BMI) [Ratio] 35.29 kg/m2 Renetta Cabrera APRN.AGRICULTURE DEPARTMENT CHAIR Work Phone: [facility] 01-27-2024 15:58-0400 Body weight 100.7 kg Renetta Cabrera APRN.AGRICULTURE DEPARTMENT CHAIR Work Phone: [facility] 01-27-2024 15:58-0400 Diastolic blood pressure 84 mm[Hg] Renetta Santanahrie TABLET MACHINE OPERATOR.AGRICULTURE DEPARTMENT CHAIR Work Phone: [facility] 01-27-2024 15:58-0400 Heart rate 88 /min Renetta Cabrera APRN.AGRICULTURE DEPARTMENT CHAIR Work Phone: [facility] 01-27-2024 15:58-0400 Systolic blood pressure 129 mm[Hg] Renetta Cabrera APRN.AGRICULTURE DEPARTMENT CHAIR Work Phone: [facility] 11-04-2023 10:10-0400 Body mass index (BMI) [Ratio] 35.93 kg/m2 Renetta Cabrera APRN.AGRICULTURE DEPARTMENT CHAIR Work Phone: [facility] 11-04-2023 10:10-0400 Body weight 102.51 kg Renetta Cabrera APRN.AGRICULTURE DEPARTMENT CHAIR Work Phone: [facility] 11-04-2023 10:10-0400 Diastolic blood pressure 74 mm[Hg] Renetta Cabrera APRN.AGRICULTURE DEPARTMENT CHAIR Work Phone: [facility] 11-04-2023 10:10-0400 Heart rate 74 /min Renetta Cabrera APRN.AGRICULTURE DEPARTMENT CHAIR Work Phone: [facility] 11-04-2023 10:10-0400 Systolic blood pressure 133 mm[Hg] Renetta Cabrera APRN.AGRICULTURE DEPARTMENT CHAIR Work Phone: [facility] 09-17-2023 14:02-0400 Body mass index (BMI) [Ratio] 39.11 kg/m2 Renetta Cabrera APRN.AGRICULTURE DEPARTMENT CHAIR Work Phone: [facility] 09-17-2023 14:02-0400 Body weight 111.58 kg Renetta Cabrera APRN.AGRICULTURE DEPARTMENT CHAIR Work Phone: [facility] 09-17-2023 14:02-0400 Diastolic blood pressure 66 mm[Hg] Renetta Cabrera APRN.AGRICULTURE DEPARTMENT CHAIR Work Phone: [facility] 09-17-2023 14:02-0400 Heart rate 84 /min Renetta Cabrera APRN.AGRICULTURE DEPARTMENT CHAIR Work Phone: [facility] 09-17-2023 14:02-0400 SaO2% (BldA) [Mass fraction] 96 % Renetta Cabrera APRN.AGRICULTURE DEPARTMENT CHAIR Work Phone: [facility] 09-17-2023 14:02-0400 Systolic blood pressure 124 mm[Hg] Renetta Cabrera APRN.AGRICULTURE DEPARTMENT CHAIR Work Phone: [facility] 09-14-2023 09:10-0400 Body mass index (BMI) [Ratio] 39.52 kg/m2 Yasmin Vero TABLET MACHINE OPERATOR.AGRICULTURE DEPARTMENT CHAIR Work Phone: [facility] 09-14-2023 09:10-0400 Body weight 112.76 kg Yasmin Vero TABLET MACHINE OPERATOR.AGRICULTURE DEPARTMENT CHAIR Work Phone: [facility] 09-14-2023 09:10-0400 Diastolic blood pressure 82 mm[Hg] Yasmin Vero TABLET MACHINE OPERATOR.AGRICULTURE DEPARTMENT CHAIR Work Phone: [facility] 09-14-2023 09:10-0400 Heart rate 70 /min Yasmin Vero TABLET MACHINE OPERATOR.AGRICULTURE DEPARTMENT CHAIR Work Phone: [facility] 09-14-2023 09:10-0400 Respiratory rate 18 /min Yasmin Vero TABLET MACHINE OPERATOR.AGRICULTURE DEPARTMENT CHAIR Work Phone: [facility] 09-14-2023 09:10-0400 SaO2% (BldA) [Mass fraction] 98 % Yasmin Vero TABLET MACHINE OPERATOR.AGRICULTURE DEPARTMENT CHAIR Work Phone: [facility] 09-14-2023 09:10-0400 Systolic blood pressure 147 mm[Hg] Yasmin Vero TABLET MACHINE OPERATOR.AGRICULTURE DEPARTMENT CHAIR Work Phone: [facility] 08-06-2023 13:58-0400 Body mass index (BMI) [Ratio] 39.91 kg/m2 Renetta Cabrera APRN.AGRICULTURE DEPARTMENT CHAIR Work Phone: [facility] 08-06-2023 13:58-0400 Body weight 113.85 kg Renetta Cabrera APRN.AGRICULTURE DEPARTMENT CHAIR Work Phone: [facility] 08-06-2023 13:58-0400 Diastolic blood pressure 80 mm[Hg] Renetta Cabrera APRN.AGRICULTURE DEPARTMENT CHAIR Work Phone: [facility] 08-06-2023 13:58-0400 Heart rate 73 /min Renetta Cabrera APRN.AGRICULTURE DEPARTMENT CHAIR Work Phone: [facility] 08-06-2023 13:58-0400 Systolic blood pressure 115 mm[Hg] Renetta Cabrera APRN.AGRICULTURE DEPARTMENT CHAIR Work Phone: [facility] 08-05-2023 14:240400 Body height 168.9 cm Yasmin Delvalle MD Work Phone: [facility] 08-05-2023 14:24-040 Body mass index (BMI) [Ratio] 39.91 kg/m2 Yasmin Delvalle MD Work Phone: [facility] 08-05-2023 14:24040 Body weight 113.85 kg Yasmin Delvalle MD Work Phone: [facility] 08-05-2023 14:240400 Diastolic blood pressure 82 mm[Hg] Yasmin Delvalle MD Work Phone: [facility] 08-05-2023 14:24040 Systolic blood pressure 116 mm[Hg] Yasmin Delvalle MD Work Phone: [facility] 07-15-2023 10:03040 Body weight 115.12 kg Renetta Cabrera APRN.AGRICULTURE DEPARTMENT CHAIR Work Phone: [facility] 07-15-2023 10:03-0400 Diastolic blood pressure 74 mm[Hg] Renetta Cabrera APRN.AGRICULTURE DEPARTMENT CHAIR Work Phone: [facility] 07-15-2023 10:03-0400 Heart rate 68 /min Renetta Cabrera APRN.AGRICULTURE DEPARTMENT CHAIR Work Phone: [facility] 07-15-2023 10:03-0400 SaO2% (BldA) [Mass fraction] 97 % Renetta Cabrera APRN.AGRICULTURE DEPARTMENT CHAIR Work Phone: [facility] 07-15-2023 10:03-0400 Systolic blood pressure 122 mm[Hg] Renetta Cabrera APRN.AGRICULTURE DEPARTMENT CHAIR Work Phone: [facility] 06-30-2023 12:21-0400 Body height 168.[address] [facility] 06-30-2023 12:[id number] Body weight 116.[address] [facility] 04-17-2023 14:050 Body weight 117.48 kg Yasmin Delvalle MD Work Phone: [facility] 04-17-2023 14:29-0500 Diastolic blood pressure 74 mm[Hg] Yasmin Delvalle MD Work Phone: [facility] 04-17-2023 14:29-0500 Systolic blood pressure 112 mm[Hg] Yasmin Delvalle MD Work Phone: [facility] 01-23-2023 10:33-0400 Body temperature 98.6 [degF] RJ BOGGS WINDOWS SECURITY ENGINEER-BC Work Phone: [facility].; [facility] [employer] [facility] Emergency DepartmentBambisa. Comment on above: Method: Oral 01-23-2023 10:33-0400 Body weight 112.04 kg RJ BOGGS WINDOWS SECURITY ENGINEER-BC Work Phone: [facility] Emergency DepartmentBambisa.; [facility] [employer] [facility] Emergency DepartmentBambisa. 01-23-2023 10:33-0400 Diastolic blood pressure 78 mm[Hg] RJ BOGGS WINDOWS SECURITY ENGINEER-BC Work Phone: [facility] [employer] [facility] Emergency DepartmentBambisa.; [facility] [employer] [facility] Emergency DepartmentBambisa. Comment on above: Patient Position: Sitting; Cuff Location : Left Arm; Cuff Size: Standard 01-23-2023 10:33-0400 Heart rate 79 /min RJ FLAKITA WINDOWS SECURITY ENGINEER-BC Work Phone: [facility] Emergency DepartmentBambisa.; [employer] [facility]. Comment on above: Pattern: Regular 01-23-2023 10:33-0400 Systolic blood pressure 129 mm[Hg] RJ FLAKITA WINDOWS SECURITY ENGINEER-BC Work Phone: [employer].; [employer] [facility] [employer]. Comment on above: Patient Position: Sitting; Cuff Location : Left Arm; Cuff Size: Standard 06-18-2022 08:07-0500 Body temperature 98.2 [degF] Gilbert Vail APRN.CNP Work Phone: [facility] 06-18-2022 08:07-0500 Body weight 99.79 kg Gilbert Vail APRN.AGRICULTURE DEPARTMENT CHAIR Work Phone: [facility] 06-18-2022 08:07-0500 Diastolic blood pressure 86 mm[Hg] Gilbert Vail APRN.AGRICULTURE DEPARTMENT CHAIR Work Phone: [facility] 06-18-2022 08:07-0500 Heart rate 73 /min Gilbert Vail APRN.AGRICULTURE DEPARTMENT CHAIR Work Phone: [facility] 06-18-2022 08:07-0500 Respiratory rate 16 /min Gilbert Vail APRN.AGRICULTURE DEPARTMENT CHAIR Work Phone: [facility] 06-18-2022 08:07-0500 SaO2% (BldA) [Mass fraction] 98 % Gilbert Vail APRN.AGRICULTURE DEPARTMENT CHAIR Work Phone: [facility] 06-18-2022 08:07-0500 Systolic blood pressure 133 mm[Hg] Gilbert Vail APRN.AGRICULTURE DEPARTMENT CHAIR Work Phone: [facility] 11-14-2020 11:17-0400 Body height 165.1 cm RJ BOGGS WINDOWS SECURITY ENGINEER- Work Phone: [employer] [facility] Emergency DepartmentBambisa.; [employer] [facility] [employer] [facility] Emergency DepartmentBambisa. 11-14-2020 11:17-0400 Body mass index (BMI) [Ratio] 31.95 kg/m2 RJ BOGGS WINDOWS SECURITY ENGINEER- Work Phone: [facility] [employer] [facility] Emergency DepartmentBambisa.; [employer] [facility] [employer]. 11-14-2020 11:17-0400 Body surface area Derived from formula 1.94 m2 RJ BOGGS WINDOWS SECURITY ENGINEER- Work Phone: [employer]. 11-14-2020 11:17-0400 Body weight 87.09 kg RJ BOGGS WINDOWS SECURITY ENGINEER-BC Work Phone: [facility] [employer] [facility] Emergency DepartmentBambisa.; [employer]. 11-14-2020 11:17-0400 Diastolic blood pressure 70 mm[Hg] RJ BOGGS WINDOWS SECURITY ENGINEER-BC Work Phone: [facility]; [employer] [facility] [employer] [facility] Emergency DepartmentBambisa. Comment on above: Patient Position: Sitting; Cuff Location : Right Arm; Cuff Size: Standard 11-14-2020 11:17-0400 Heart rate 69 /min RJ BOGGS WINDOWS SECURITY ENGINEER-BC Work Phone: [facility] [employer]; [employer] [facility] [employer] [facility] Emergency DepartmentBambisa. Comment on above: Pattern: Regular 11-14-2020 11:17-0400 Inhaled oxygen concentration 21 % RJ BOGGS WINDOWS SECURITY ENGINEER-BC Work Phone: [facility] [employer]; [employer] [facility] [employer] [facility] Emergency DepartmentBambisa. Comment on above: Room air 11-14-2020 11:17-0400 Respiratory rate 16 /min RJ BOGGS WINDOWS SECURITY ENGINEER-BC Work Phone: [facility] Emergency DepartmentSolidcore [employer]; [employer] [facility] [employer] [facility] Emergency DepartmentBambisa. Comment on above: Pattern: Unlabored 11-14-2020 11:17-0400 SaO2% (BldA) [Mass fraction] 98 % RJ BOGGS WINDOWS SECURITY ENGINEER-BC Work Phone: [facility] [employer]; [employer] [facility] [employer] [facility] Emergency DepartmentBambisa. 11-14-2020 11:17-0400 Systolic blood pressure 116 mm[Hg] RJ BOGGS WINDOWS SECURITY ENGINEER-BC Work Phone: [facility] [employer]; [employer] [facility] [employer] [facility] Emergency DepartmentBambisa. Comment on above: Patient Position: Sitting; Cuff Location : Right Arm; Cuff Size: Standard 09-17-2020 14:05-0400 Body height 165.1 cm Dara Tee Boggs [facility] [employer] [facility] Emergency DepartmentBambisa.; [facility]. 09-17-2020 14:05-0400 Body mass index (BMI) [Ratio] 32.52 kg/m2 Dara Tee Boggs [facility].; [facility] [employer] [facility] Emergency DepartmentGrowlife [facility]. 09-17-2020 14:05-0400 Body surface area Derived from formula 1.96 m2 Dara Sorensen [employer] [facility], Inc.; [employer] [facility] [employer] [facility], Inc[employer] 09-17-2020 14:05-0400 Body weight 88.63 kg Dara Sorensen Mas [employer] [facility].; [facility] [employer] [facility], Inc[facility] 09-17-2020 14:05-0400 Diastolic blood pressure 67 mm[Hg] Dara Sorensen [employer] [facility].; [facility] [employer] [facility], Inc. Comment on above: Patient Position: Sitting; Cuff Location : Left Arm; Cuff Size: Standard 09-17-2020 14:05-0400 Heart rate 56 /min Dara Sorensen [employer] [facility] Emergency DepartmentGrowlife Inc.; [employer] [facility] [employer] [facility], Inc. Comment on above: Pattern: Regular 09-17-2020 14:05-0400 Systolic blood pressure 100 mm[Hg] Dara Sorensen [employer] [facility] Emergency DepartmentGrowlife Inc.; [employer] [facility] [employer] [facility], Inc. Comment on above: Patient Position: Sitting; Cuff Location : Left Arm; Cuff Size: Standard 11-16-2017 11:23-0400 Body height 165.1 cm RJ BOGGS [employer]20/20 [employer] Work Phone: [employer].; [employer] 11-16-2017 11:23-0400 Body mass index (BMI) [Ratio] 40.94 kg/m2 RJ BOGGS WINDOWS SECURITY ENGINEER-BC Work Phone: [employer].; [employer] [facility] [employer] 11-16-2017 11:23-0400 Body surface area Derived from formula 2.16 m2 RJ BunchballP-20/20 [employer] Work Phone: [employer].; [employer] 11-16-2017 11:23-0400 Body weight 111.59 kg RJ BunchballP-BC Work Phone: [employer].; [employer] 11-16-2017 11:23-0400 Diastolic blood pressure 82 mm[Hg] RJ BOGGS WINDOWS SECURITY ENGINEER-BC Work Phone: [employer].; [facility] [employer]. Comment on above: Patient Position: Sitting; Cuff Location : Left Arm; Cuff Size: Large 11-16-2017 11:23-0400 Heart rate 73 /min RJ BOGGS WINDOWS SECURITY ENGINEER-BC Work Phone: [employer] [facility] [employer] Comment on above: Pattern: Regular 11-16-2017 11:23-0400 Systolic blood pressure 123 mm[Hg] RJ BOGGS WINDOWS SECURITY ENGINEER-BC Work Phone: [employer] [facility] [employer] Comment on above: Patient Position: Sitting; Cuff Location : Left Arm; Cuff Size: Large 10-19-2017 11:20-0400 Body height 165.1 cm Dara Tee [employer] [facility] [employer] 10-19-2017 11:20-0400 Body mass index (BMI) [Ratio] 41.27 kg/m2 Dara Tee [employer] [facility] [employer] 10-19-2017 11:20-0400 Body surface area Derived from formula 2.17 m2 Dara Tee [employer] [facility] [employer] 10-19-2017 11:20-0400 Body weight 112.49 kg Dara Tee [employer] [facility] [employer] 10-19-2017 11:20-0400 Diastolic blood pressure 73 mm[Hg] Dara Tee [employer] [facility] [employer] Comment on above: Patient Position: Sitting; Cuff Location : Left Arm; Cuff Size: Large 10-19-2017 11:20-0400 Heart rate 68 /min Dara Tee [employer] [facility] [employer] Comment on above: Pattern: Regular 10-19-2017 11:20-0400 Systolic blood pressure 138 mm[Hg] Dara Boggs [facility] [employer] [facility] Emergency DepartmentBambisa.; [facility] Emergency DepartmentBambisa. Comment on above: Patient Position: Sitting; Cuff Location : Left Arm; Cuff Size: Large 08-13-2017 11:54-0400 Diastolic blood pressure 90 mm[Hg] RJ BOGGS WINDOWS SECURITY ENGINEER-BC Work Phone: [employer] [place] [employer] [facility] [employer] Comment on above: Patient Position: Sitting; Cuff Location : Left Arm; Cuff Size: Large 08-13-2017 11:54-0400 Heart rate 89 /min RJ BOGGS WINDOWS SECURITY ENGINEER-BC Work Phone: [employer] [facility] [employer] Comment on above: Pattern: Regular 08-13-2017 11:54-0400 Systolic blood pressure 142 mm[Hg] RJ BOGGS WINDOWS SECURITY ENGINEER-BC Work Phone: [facility] [employer].; [place] [employer] [facility] [employer]. Comment on above: Patient Position: Sitting; Cuff Location : Left Arm; Cuff Size: Large 08-10-2017 13:24-0400 Body height 165.1 cm RJ BOGGS WINDOWS SECURITY ENGINEER-BC Work Phone: [employer].; [employer] 08-10-2017 13:24-0400 Body mass index (BMI) [Ratio] 42.43 kg/m2 RJ BOGGS WINDOWS SECURITY ENGINEER-BC Work Phone: [employer].; [employer] 08-10-2017 13:24-0400 Body surface area Derived from formula 2.19 m2 RJ BOGGS WINDOWS SECURITY ENGINEER-BC Work Phone: [employer].; [employer] 08-10-2017 13:24-0400 Body weight 115.67 kg RJ BOGGS WINDOWS SECURITY ENGINEER-BC Work Phone: [employer](IN[employer]). 08-10-2017 13:24-0400 Diastolic blood pressure 86 mm[Hg] RJ BunchballP-BC Work Phone: [employer] [place] [employer]. Comment on above: Patient Position: Sitting; Cuff Location : Left Arm; Cuff Size: Large 08-10-2017 13:24-0400 Heart rate 104 /min RJ BOGGS WINDOWS SECURITY ENGINEER-BC Work Phone: [employer](INOR). Comment on above: Pattern: Regular 08-10-2017 13:24-0400 Systolic blood pressure 180 mm[Hg] RJ BunchballP-BC Work Phone: [employer].; [place] [employer]. Comment on above: Patient Position: Sitting; Cuff Location : Left Arm; Cuff Size: Large 07-13-2017 13:40-0400 Body height 165.1 cm RJ BunchballP-BC Work Phone: [employer].; [employer] [facility] [employer] 07-13-2017 13:40-0400 Body mass index (BMI) [Ratio] 42.43 kg/m2 RJ BunchballP-BC Work Phone: [employer].; [employer] [facility] [employer] 07-13-2017 13:40-0400 Body surface area Derived from formula 2.19 m2 RJ BunchballP-BC Work Phone: [employer].; [facility] [employer] [facility] [employer] 07-13-2017 13:40-0400 Body weight 115.67 kg RJ BunchballP-BC Work Phone: [employer].; [facility] [employer] 07-13-2017 13:40-0400 Diastolic blood pressure 80 mm[Hg] RJ BunchballP-BC Work Phone: [employer].; [employer] [facility] [employer]. Comment on above: Patient Position: Sitting; Cuff Location : Left Arm; Cuff Size: Large 07-13-2017 13:40-0400 Heart rate 84 /min RJ BOGGS WINDOWS SECURITY ENGINEER-BC Work Phone: [employer].; [employer] [facility] [employer]. Comment on above: Pattern: Regular 07-13-2017 13:40-0400 Systolic blood pressure 120 mm[Hg] RJ BOGGS WINDOWS SECURITY ENGINEER-BC Work Phone: [employer].; [employer] [facility] [employer]. Comment on above: Patient Position: Sitting; Cuff Location : Left Arm; Cuff Size: Large 04-20-2017 11:14-0500 Body temperature 97.7 [degF] RJ BOGGS WINDOWS SECURITY ENGINEER-BC Work Phone: [employer] [facility] [employer]. Comment on above: Method: Oral 04-20-2017 11:14-0500 Body weight 115.85 kg RJ BOGGS WINDOWS SECURITY ENGINEER-BC Work Phone: [employer](INOR). 04-20-2017 11:14-0500 Diastolic blood pressure 91 mm[Hg] RJ BOGGS WINDOWS SECURITY ENGINEER-BC Work Phone: [employer] [facility] [employer]. Comment on above: Patient Position: Sitting; Cuff Location : Left Arm; Cuff Size: Large 04-20-2017 11:14-0500 Heart rate 79 /min RJ BOGGS WINDOWS SECURITY ENGINEER-BC Work Phone: [employer](INOR). Comment on above: Pattern: Regular 04-20-2017 11:14-0500 Inhaled oxygen concentration 21 % RJ BOGGS WINDOWS SECURITY ENGINEER-BC Work Phone: [employer](INOR). Comment on above: Room air 04-20-2017 11:14-0500 SaO2% (BldA) [Mass fraction] 98 % RJ BOGGS WINDOWS SECURITY ENGINEER-BC Work Phone: [employer]; [employer](INOR). 04-20-2017 11:14-0500 Systolic blood pressure 146 mm[Hg] RJ BOGGS WINDOWS SECURITY ENGINEER-BC Work Phone: [employer](INOR). Comment on above: Patient Position: Sitting; Cuff Location : Left Arm; Cuff Size: Large 08-19-2016 08:52-0400 Body height 165.1 cm RJ BOGGS WINDOWS SECURITY ENGINEER-BC Work Phone: [employer]; [facility] [employer] 08-19-2016 08:52-0400 Body mass index (BMI) [Ratio] 41.77 kg/m2 RJ BOGGS WINDOWS SECURITY ENGINEER-BC Work Phone: [employer]; [facility] [employer]. 08-19-2016 08:52-0400 Body surface area Derived from formula 2.18 m2 RJ BOGGS WINDOWS SECURITY ENGINEER-BC Work Phone: [employer]; [facility] [employer]. 08-19-2016 08:52-0400 Body weight 113.85 kg RJ BOGGS WINDOWS SECURITY ENGINEER-BC Work Phone: [employer]; [facility] [employer]. 08-19-2016 08:52-0400 Diastolic blood pressure 85 mm[Hg] RJ BOGGS WINDOWS SECURITY ENGINEER-BC Work Phone: [employer]; [facility] [employer] Comment on above: Patient Position: Sitting; Cuff Location : Left Arm; Cuff Size: Standard 08-19-2016 08:52-0400 Heart rate 103 /min RJ BOGGS WINDOWS SECURITY ENGINEER-BC Work Phone: [employer]; [facility] [employer] Comment on above: Pattern: Regular 08-19-2016 08:52-0400 Systolic blood pressure 135 mm[Hg] RJ BOGGS WINDOWS SECURITY ENGINEER-BC Work Phone: [employer].; [facility] [employer]. Comment on above: Patient Position: Sitting; Cuff Location : Left Arm; Cuff Size: Standard 07-14-2016 10:45-0400 Body height 165.1 cm RJ BOGGS WINDOWS SECURITY ENGINEER-BC Work Phone: [employer] [facility] [employer]. 07-14-2016 10:45-0400 Body mass index (BMI) [Ratio] 40.94 kg/m2 RJ BOGGS WINDOWS SECURITY ENGINEER-BC Work Phone: [employer] [facility] [employer]. 07-14-2016 10:45-0400 Body surface area Derived from formula 2.16 m2 RJ BOGGS WINDOWS SECURITY ENGINEER-BC Work Phone: [employer].; [facility] [employer]. 07-14-2016 10:45-0400 Body weight 111.59 kg RJ BOGGS WINDOWS SECURITY ENGINEER-BC Work Phone: [employer].; [facility] [employer]. 07-14-2016 10:45-0400 Diastolic blood pressure 82 mm[Hg] RJ BOGGS WINDOWS SECURITY ENGINEER-BC Work Phone: [employer].; [facility] [employer]. Comment on above: Patient Position: Sitting; Cuff Location : Left Arm; Cuff Size: Large 07-14-2016 10:45-0400 Heart rate 76 /min RJ BOGGS WINDOWS SECURITY ENGINEER-BC Work Phone: [employer] [facility] [employer]. Comment on above: Pattern: Regular 07-14-2016 10:45-0400 Systolic blood pressure 132 mm[Hg] RJ BOGGS WINDOWS SECURITY ENGINEER-BC Work Phone: [employer].; [employer] [facility] DepartmentBambisa. Comment on above: Patient Position: Sitting; Cuff Location : Left Arm; Cuff Size: Large 10-22-2015 10:40-0400 Body height 165.1 cm [facility] [employer] [facility] 10-22-2015 10:40-0400 Body mass index (BMI) [Ratio] 41.93 kg/m2 [facility] [place] [employer] [facility] Emergency DepartmentGrowlife Inc.; [facility] 10-22-2015 10:40-0400 Body surface area Derived from formula 2.18 m2 [facility] [place] [employer] [facility] Emergency DepartmentBambisa.; [facility] [employer] [facility] DepartmentBambisa. 10-22-2015 10:40-0400 Body weight 114.31 kg [facility] [place] [employer] [facility] DepartmentBambisa.; [facility] [employer] [facility] DepartmentBambisa. 10-22-2015 10:40-0400 Diastolic blood pressure 86 mm[Hg] [facility] [place] [employer] [facility] DepartmentBambisa.; [facility] [employer] [facility] Emergency DepartmentBambisa. Comment on above: Patient Position: Sitting; Cuff Location : Left Arm; Cuff Size: Standard 10-22-2015 10:40-0400 Heart rate 81 /min [facility] [place] [employer] [facility] Emergency DepartmentBambisa.; [employer] [facility] [employer] [facility] Emergency DepartmentBambisa. Comment on above: Pattern: Regular 10-22-2015 10:40-0400 Systolic blood pressure 131 mm[Hg] [facility] [place] [employer] [facility] Emergency DepartmentBambisa.; [facility] [employer] [facility] Comment on above: Patient Position: Sitting; Cuff Location : Left Arm; Cuff Size: Standard 07-09-2015 10:38-0400 Body height 165.1 cm RJ BunchballP-20[employer] Work Phone: [facility].; [facility] [employer] 07-09-2015 10:38-0400 Body mass index (BMI) [Ratio] 42.27 kg/m2 RJ BunchballP-BC Work Phone: [facility].; [place] [facility] [employer]. 07-09-2015 10:38-0400 Body surface area Derived from formula 2.19 m2 RJ BOGGS WINDOWS SECURITY ENGINEER-BC Work Phone: [employer]; [employer]). 07-09-2015 10:38-0400 Body temperature 99.7 [degF] RJ BOGGS WINDOWS SECURITY ENGINEER-BC Work Phone: [employer]). Comment on above: Method: Oral 07-09-2015 10:38-0400 Body weight 115.21 kg RJ BOGGS WINDOWS SECURITY ENGINEER-BC Work Phone: [employer]; [employer]). 07-09-2015 10:38-0400 Diastolic blood pressure 71 mm[Hg] RJ BOGGS WINDOWS SECURITY ENGINEER-BC Work Phone: [employer]; [employer]). Comment on above: Patient Position: Sitting; Cuff Location : Left Arm; Cuff Size: Standard 07-09-2015 10:38-0400 Heart rate 71 /min RJ BOGGS WINDOWS SECURITY ENGINEER-BC Work Phone: [employer]; [employer]). Comment on above: Pattern: Regular 07-09-2015 10:38-0400 Systolic blood pressure 117 mm[Hg] RJ BOGGS WINDOWS SECURITY ENGINEER-BC Work Phone: [employer]; [employer]). Comment on above: Patient Position: Sitting; Cuff Location : Left Arm; Cuff Size: Standard Encounters Encounter Date Encounter Type Care Provider Facility Start: 01-31-[address] [facility] Facility: [facility] Start: 01-27-2025 End: 01-27-2025 ambulatory [facility] Facility:[facility] Start: 01-27-2025 End: 01-27-2025 ambulatory [facility] Facility:[facility] Start: 01-24-2025 End: 01-24-2025 ambulatory [facility] Facility:[facility] Start: 01-19-2025 End: 01-19-2025 ambulatory ASHLEY MISHRA Facility:[facility] Start: 01-19-2025 End: 01-19-2025 ambulatory Lisandro Palencia Facility:[facility] Start: 01-04-2025 End: 01-04-2025 ambulatory YASMIN DELVALLE Facility:[facility] Start: 12-26-2024 End: 12-26-[address] Aldo Rodriguez DO Work Phone: [facility] Start: 12-26-2024 End: 12-26-[address] Lisandro Palencia DO -[facility] Work Phone: Start: 12-26-2024 End: 12-26-2024 [...] Start: 12-22-2024 End: 12-22-2024 ambulatory LISANDRO PALENCIA Facility:[facility] Start: 12-06-2024 End: 12-06-2024 Patient [...] Start: 11-23-2024 End: 11-23-2024 ambulatory ASHLEY MISHRA Facility:[facility] Start: 11-23-2024 End: 11-23-2024 Patient [...] Start: 10-26-2024 End: 10-26-2024 ambulatory YASMIN DELVALLE Facility:[facility] Start: 10-26-2024 End: 12-26-2024 Follow-up [...] Start: 10-21-2024 End: 10-21-2024 ambulatory ASHLEY MISHRA Facility:[facility] Start: 10-20-2024 End: 10-21-2024 ambulatory Ashley Mishra APRN.CNM Work Phone: OB/Gynecology Comment on above: Headache Start: 09-28-2024 End: 09-28-2024 Patient encounter procedure Whi Tech 1 Wet Roller Mfm Wstr Mob Maternal Medicine Comment on [...] of pulmonary embolism Start: 09-28-2024 End: 09-28-2024 [facility] Facility:[facility] Start: 09-06-2024 End: 09-06-2024 Patient encounter procedure Ashley Mishra APRN.CNM Work Phone: OB/Gynecology Comment on above: Supervision of high risk , antepartum (HCC) (Primary Dx); 17 weeks gestation of (HCC); Obesity in (HCC); NIVIA on CPAP; History of pulmonary embolism Start: 09-06-2024 End: 09-06-2024 [facility] Facility:[facility] Start: 08-09-2024 End: 08-09-2024 Patient [...] of (HCC) Start: 08-09-2024 End: 08-09-2024 ambulatory [facility] Facility:[facility] Start: 07-19-2024 End: 07-19-2024 [facility] Facility:[id number] Start: 07-13-2024 End: 07-14-2024 ambulatory Julia Hester TABLET MACHINE OPERATOR.AGRICULTURE DEPARTMENT CHAIR Work Phone: OB/Gynecology Comment on above: NIPT testing Start: 07-01-2024 End: 07-01-2024 ambulatory Julia Machucaruben BAUGHN.AGRICULTURE DEPARTMENT CHAIR Work Phone: OB/Gynecology Comment on above: Symptoms Start: 06-30-2024 End: 06-30-2024 Telephone encounter Julia Mirleon MONTES DE OCA.AGRICULTURE DEPARTMENT CHAIR Work Phone: OB/Gynecology Comment on above: Results Start: 06-27-2024 End: 06-27-2024 ambulatory JULIA DALLAS Facility:[facility] Start: 06-27-2024 End: 06-27-2024 Patient encounter procedure Julia Mir TAVON.AGRICULTURE DEPARTMENT CHAIR Work Phone: OB/Gynecology Comment on above: Supervision of high risk , antepartum (Primary Dx); 7 weeks gestation of ; with uncertain dates in first trimester; Encounter for care in first trimester of first ; BMI 35.0-35.9,adult Start: 06-27-2024 End: 08-27-2024 Follow-up encounter Julia Hester APRN.SVETLANA Work Phone: OB/Gynecology Comment on above: Results Start: 05-26-2024 End: 05-26-2024 ambulatory Renetta Cabrera APRN.AGRICULTURE DEPARTMENT CHAIR Work Phone: OB/Gynecology Comment on above: NIVIA on CPAP (Primary Dx); PCOS (polycystic ovarian syndrome); Class 3 severe obesity with serious comorbidity and body mass index (BMI) of 40.0 to 44.9 in adult, unspecified obesity type (HCC) Start: 05-26-2024 End: 05-26-2024 Telemedicine consultation with patient Renetta Cabrera APRN.SVETLANA Work Phone: OB/Gynecology Start: 02-05-2024 End: 02-05-2024 [facility]:[id number] Start: 02-03-2024 End: 02-03-2024 ambulatory JULIA DALLAS Facility:[id number] Start: 01-27-2024 End: 01-27-2024 Telemedicine consultation with patient Renetta Cabrera APRN.AGRICULTURE DEPARTMENT CHAIR Work Phone: OB/Gynecology Start: 01-27-2024 End: 01-28-2024 ambulatory Renetta Cabrera APRN.AGRICULTURE DEPARTMENT CHAIR Work Phone: OB/Gynecology Comment on above: NIVIA on CPAP (Primary Dx); PCOS (polycystic ovarian syndrome); Class 3 severe obesity with serious comorbidity and body mass index (BMI) of 40.0 to 44.9 in adult, unspecified obesity type (HCC) Vitals Start: 01-13-2024 End: 01-13-2024 ambulatory CL MAR[facility] Start: 11-04-2023 End: 11-04-2023 ambulatory Renetta Cabrera APRN.AGRICULTURE DEPARTMENT CHAIR Work Phone: OB/Gynecology Comment on above: NIVIA on CPAP (Primary Dx); PCOS (polycystic ovarian syndrome); Class 3 severe obesity with serious comorbidity and body mass index (BMI) of 40.0 to 44.9 in adult, unspecified obesity type (HCC) Start: 11-04-2023 End: 11-04-2023 Telemedicine consultation with patient Renetta Cabrera APRN.AGRICULTURE DEPARTMENT CHAIR Work Phone: OB/Gynecology Start: 09-17-2023 End: 09-17-2023 Office outpatient visit 25 minutes Renetta Cabrera APRN.AGRICULTURE DEPARTMENT CHAIR Work Phone: OB/Gynecology Comment on above: NIVIA on CPAP (Primary Dx); PCOS (polycystic ovarian syndrome); Class 3 severe obesity with serious comorbidity and body mass index (BMI) of 40.0 to 44.9 in adult, unspecified obesity type (HCC); UTI symptoms Start: 09-17-2023 Orders Only Renetta SANDOVAL RN.AGRICULTURE DEPARTMENT CHAIR Work Phone: OB/Gynecology Start: 09-14-2023 End: 09-14-2023 Patient encounter procedure Yasimn Pham APRN.AGRICULTURE DEPARTMENT CHAIR Work Phone: Neurology Comment on above: NIVIA (obstructive sle ep apnea) (Primary Dx); Insomnia, unspecified type; Obesity, Class II, BMI 35-39.9 Start: 09-10-2023 Telephone encounter Neurology Provid er Neurology Start: 08-06-2023 End: 08-06-2023 Office outpatient visit 25 minutes Renetta Cabrera APRN.AGRICULTURE DEPARTMENT CHAIR Work Phone: OB/Gynecology Comment on above: NIVIA [...] status Yasmin Delvalle MD Work Phone: [facility] Start: 07-15-2023 End: 07-15-2023 Patient encounter procedure Renetta Cabrera APRN.AGRICULTURE DEPARTMENT CHAIR Work Phone: OB/Gynecology Comment on above: NIVIA [...] Start: 05-24-2023 End: 05-24-2023 ambulatory MARY MENJIVAR Facility:[id number] Start: 05-22-2023 End: 05-22-2023 ambulatory Yasmin Delvalle MD Work Phone: OB/Gynecology Comment on above: Progesterone Start: 04-17-2023 End: 04-17-2023 Patient encounter procedure Yasmin Delvalle MD Work Phone: OB/Gynecology Comment on above: Oligo-ovulation (Elena kermit Dx); Morbid obesity (HCC); PCOS (polycystic ovarian syndrome) Start: 01-23-2023 End: 01-23-2023 Office outpatient visit 15 minutes RJ BOGGS [facility]- Work Phone: [facility] Start: 12-23-2022 ambulatory Yasmin august MD Work Phone: OB/Gynecology Comment on above: Received Outside [facility] Records Start: 12-05-2022 End: 12-05-2022 ambulatory [facility] Work Phone: Start: 12-05-2022 End: 12-05-2022 Patient encounter procedure [facility], [place] input output clerk Off Start: 11-05-2022 ambulatory ALFRED Snyder cility:[facility]I Start: 11-05-2022 ambulatory [facility]-ALFRED Tao lity:UNI Start: 11-05-2022 End: 11-05-2022 Subsequent hospital visit by physician Alfred Hood APRN.AGRICULTURE DEPARTMENT CHAIR Work Phone: [facility] Comment on above: PRE-EMPLOYMENT Start: 11-05-2022 End: 11-05-2022 Subsequent hospital visit by physician Provider [facility] Comment on above: PRE EMPLOY UDS CXR L ABS PFT/[place] [employer] [place] Start: 10-20-2022 ambulatory ALFRED Snyder cility:UNI Start: 10-20-2022 End: 10-20-2022 Subsequent hospital visit by physician Provider [facility] Comment on above: PRE EMPLOYMENT PHYSI SUJATHA/FIRE DEPT [place] Start: 06-18-2022 End: 06-18-2022 Patient encounter procedure Gilbert Vail APRN.AGRICULTURE DEPARTMENT CHAIR Work Phone: [facility] Comment on above: Viral upper respirat ory tract infection (Primary Dx) Start: 12-18-2021 ambulatory WW-NICK Nay ESPOSITO Facility:[facility]I Start: 12-18-2021 End: 12-18-2021 Subsequent hospital visit by physician Provider [facility] Comment on above: 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[place] [employer] [place] Start: 11-14-2020 End: 11-14-2020 Office outpatient visit 25 minutes RJ BOGGS WINDOWS SECURITY ENGINEER-BC Work Phone: [facility] [employer] Start: 09-17-2020 End: 09-17-2020 Patient encounter status Elle CHASE MD Work Phone: [employer]; [facility] [employer] Start: 09-17-2020 End: 09-17-2020 Periodic preventive med est patient 18-39 yrs RJ BOGGS WINDOWS SECURITY ENGINEER-BC Work Phone: [facility] [employer] Start: 07-23-2020 End: 07-23-2020 Subsequent hospital visit by physician Provider [facility] Comment on above: PRE EMP UDS/ SUGAR[place] [employer] Start: 02-03-2020 End: 02-03-2020 Lab Only RJ BOGGS WINDOWS SECURITY ENGINEER-BC Work Phone: [facility] Start: 12-06-2018 End: 12-06-2018 Medication Refill/Order RJ BOGGS WINDOWS SECURITY ENGINEER-BC Work Phone: [facility] Start: 06-05-2018 End: 06-05-2018 Historical Summary RJ FLAKITA WINDOWS SECURITY ENGINEER-BC Work Phone: [place] [employer] Start: 02-03-2018 End: 02-03-2018 Injection/immunization only RJ BOGGS WINDOWS SECURITY ENGINEER-BC Work Phone: [facility] Start: 11-20-2017 End: 11-20-2017 Historical Summary RJ BOGGS WINDOWS SECURITY ENGINEER-BC Work Phone: [facility] Start: 11-16-2017 End: 11-16-2017 Transition of Care RJ BOGGS WINDOWS SECURITY ENGINEER-BC Work Phone: [facility] Start: 11-16-2017 End: 11-16-2017 Office outpatient visit 15 minutes RJ BOGGS WINDOWS SECURITY ENGINEER-BC Work Phone: [facility] Start: 10-20-2017 End: 10-20-2017 Historical Summary RJ BOGGS WINDOWS SECURITY ENGINEER-BC Work Phone: [facility] Start: 10-20-2017 End: 10-20-2017 Historical Summary RJ BOGGS WINDOWS SECURITY ENGINEER-BC Work Phone: [facility] [employer] [facility] Start: 10-19-2017 End: 10-19-2017 Office outpatient visit 15 minutes RJ BOGGS WINDOWS SECURITY ENGINEER-BC Work Phone: [facility] Start: 08-13-2017 End: 08-13-2017 Historical Summary RJ BOGGS WINDOWS SECURITY ENGINEER-BC Work Phone: [facility] Start: 08-10-2017 End: 08-10-2017 Office outpatient visit 10 minutes RJ BOGGS WINDOWS SECURITY ENGINEER-BC Work Phone: [facility] Start: 07-20-2017 End: 07-20-2017 Historical Summary RJ BOGGS WINDOWS SECURITY ENGINEER-BC Work Phone: [facility] [employer] [facility] Start: 07-13-2017 End: 07-13-2017 Office outpatient visit 15 minutes RJ BOGGS WINDOWS SECURITY ENGINEER-BC Work Phone: [facility] [employer] [facility] Start: 07-06-2017 End: 07-06-2017 Historical Summary RJ BOGGS WINDOWS SECURITY ENGINEER-BC Work Phone: [facility] [employer] Start: 04-20-2017 End: 04-20-2017 Office outpatient visit 15 minutes RJ BOGGS WINDOWS SECURITY ENGINEER-BC Work Phone: [place] [employer] [facility] [employer]. Start: 08-19-2016 End: 08-19-2016 Office outpatient visit 10 minutes RJ BOGGS WINDOWS SECURITY ENGINEER-BC Work Phone: [facility] [employer]. Start: 07-14-2016 End: 07-14-2016 Office outpatient visit 10 minutes RJ BOGGS WINDOWS SECURITY ENGINEER-BC Work Phone: [facility] [employer] Start: 10-26-2015 End: 10-26-2015 Results Review RJ BOGGS WINDOWS SECURITY ENGINEER-BC Work Phone: [place] [employer] [facility] [employer] Start: 10-22-2015 End: 10-22-2015 Office outpatient visit 10 minutes RJ BOGGS WINDOWS SECURITY ENGINEER-BC Work Phone: [facility] [employer] Start: 07-10-2015 End: 07-10-2015 Results Review RJ BOGGS WINDOWS SECURITY ENGINEER-BC [facility] Phone[facility] Start: 07-09-2015 End: 07-09-2015 Office outpatient visit 10 minutes RJ BOGGS WINDOWS SECURITY ENGINEER-BC Work Phone: [place] [employer] [facility] [employer] Start: 08-10-2013 End: 08-10-2013 Injection/immunization only RJ BOGGS WINDOWS SECURITY ENGINEER-BC Work Phone: [employer] [facility] [employer]. Start: 05-30-2011 End: 05-30-2011 Lab Only RJ BOGGS WINDOWS SECURITY ENGINEER-BC Work Phone: [employer] Procedures Date Procedure Procedure Detail Performing Clinician [...] after 1st trimest 1/ gestation Ashley Mishra TABLET MACHINE OPERATOR.CNM Work Phone: Start: 11-23-2024 Us preg uterus after 1st trimest 1/ gestation Maryann Acosta MD Work Phone: Start: 09-28-2024 Us preg uterus after 1st trimest 1/ gestation Julia Hester TABLET MACHINE OPERATOR.AGRICULTURE DEPARTMENT CHAIR Work Phone: Start: 08-09-2024 Us preg uterus after 1st trimest 1/ gestation Julia Mir TABLET MACHINE OPERATOR.AGRICULTURE DEPARTMENT CHAIR Work Phone: Start: 07-19-2024 Antibody screen JULIA ROMANO Comment on above: Order Comment: Speci men Type: BLOOD SPECIMEN Ordering Facility: [facility] Address: [address] [place] [address] Performed By: #### T [facility] #### [facility] [place] [id number] [address] [place] [address] [place] Start: 06-27-2024 Us uterus l imited 1/> fetuses Julia Bangor TABLET MACHINE OPERATOR.AGRICULTURE DEPARTMENT CHAIR Work Phone: Start: 02-05-2024 Vaccine refused by patient COV ID-19 vaccine series declined Renetta Cabrera TABLET MACHINE OPERATOR.AGRICULTURE DEPARTMENT CHAIR Work Phone: Start: 01-23-2023 End: 01-23-2023 Dischrg meds reconciled w/current med list JR BOGGS WINDOWS SECURITY ENGINEER-BC Work Phone: Start: 11-05-2022 CBC + DIFF Alfred puckett TABLET MACHINE OPERATOR.AGRICULTURE DEPARTMENT CHAIR Work Phone: Start: 11-05-2022 Comprehensive metabo lic 2000 panel - Serum or Plasma Alfred Hood TABLET MACHINE OPERATOR.AGRICULTURE DEPARTMENT CHAIR Work Phone: Start: 11-05-2022 LIPID PANEL BASIC Ingli sh Cassidyut TABLET MACHINE OPERATOR.AGRICULTURE DEPARTMENT CHAIR Work Phone: Start: 11-05-2022 Ecg routine ecg w/le ast 12 lds trcg only w/o i&r [facility] Provider Start: 11-05-2022 Radiologic exam ches t 2 views Ingaiden Hood TABLET MACHINE OPERATOR.AGRICULTURE DEPARTMENT CHAIR Work Phone: Start: 10-20-2022 Cv strs tst xers&/or rx cont ecg w/si&r Inglish Cassidyut TABLET MACHINE OPERATOR.AGRICULTURE DEPARTMENT CHAIR Work Phone: Start: 11-14-2020 End: 11-14-2020 Dischrg meds reconciled w/current med list Elle CHASE MD Work Phone: Start: 11-14-2020 End: 11-14-2020 Urinary Incontinence RJ BOGGS [facility]- Work Phone: Comment on above: Normal. Start: 04-14-2020 End: 04-14-2020 Vaccination given Dara Boggs Comment on above: Moderna, 2nd dose wa s May 09, 2020 Start: 03-13-2020 End: 03-13-2020 D&C Elle CHASE MD Work Phone: Comment on above: Dr. Newton Start: 03-12-2020 Antibody screen RJ MENDOZA WINDOWS SECURITY ENGINEER- Work Phone: Start: 11-11-2017 End: 11-11-2017 Sleep Study Diagnostic J REINA BOGGS MD Work Phone: Comment on above: Abnormal. mild NIVIA Start: 06-11-2017 End: 06-11-2017 L fibular fx Elle CHASE MD Work Phone: Comment on above: Surgical repair Dr. Ole Boggs Start: 08-10-2013 End: 08-10-2013 Adacel RJ BOGGS WINDOWS SECURITY ENGINEER-BC Work Phone: Start: 04-13-2009 End: 04-13-2009 ACL reconstruction Elle CHASE MD Work Phone: Appendectomy Elle CHASE MD Work Phone: Plan of Treatment Date Care Activity Detail Author Start: 08-04-2028 Screening for malignant neoplasm of cervix [facility] Start: 05-01-2026 Screening for malignant neoplasm of cervix Pap Testing [facility] Start: 02-02-2025 End: 02-02-2025 Patient encounter procedure 02/02/2025 1:15 PM EDT Routine Office Visit OB/Gynecology [address] [place] [address] Angelina Meek APRN.CNM [address] [place] [address] OB OB/Gynecology Comment on above: OB Start: 01-27-2025 End: 01-27-2025 Patient encounter procedure 01/27/2025 2:30 PM EDT Routine Office Visit OB/Gynecology [address] [place] [address] Ahsley Mishra APRN.CNM [address] [place] [address] OB OB/Gynecology Comment on above: OB Start: 01-19-2025 End: 01-19-2025 Patient encounter procedure Maternal F[facility] al [facility] Comment on above: Growth Start: 01-04-2025 End: 01-04-2025 Patient encounter procedure 01/04/2025 4:20 PM EDT Routine Office Visit OB/Gynecology [address] [place] [address] Yasmin Delvalle MD [address] [place] [address] OB OB/Gynecology Comment on above: OB Start: 12-26-2024 Nonstress test [facility] Start: 12-26-2024 Obstetric monitoring [facility] Start: 12-26-2024 Vital signs measurements [facility] Start: 12-26-2024 [facility] Start: 12-26-2024 Patient discharge [facility] Start: 12-22-2024 End: 12-22-2024 Patient encounter procedure Maternal Fet al Medicine Comment on above: Growth OB Start: 12-18-2024 RSV Vaccine (1 - Risk 1-dose series) RSV Vaccine (1 - Risk 1-dose series) [facility] Start: 12-12-2024 Influenza vaccination [facility] Start: 12-06-2024 End: 12-06-2024 Patient encounter procedure 12/06/2024 2:30 PM EDT Routine Office Visit OB/Gynecology [address] [place] [address] Ashley Mishra APRN.CNM [address] [place] [address] OB OB/Gynecology Comment on above: OB Start: 11-26-2024 End: 02-25-2025 ANEMIA REFLEX PANEL ANEMIA REFLEX PANEL Lab Routine Supervision of high risk , antepartum (HCC) Expected: 11/26/2024, Expires: 02/25/2025 [facility] Comment on above: Expected: 11/26/2024, Expires: 5 Start: 11-26-2024 End: 10-26-2025 SYPHILIS TREPONEMAL W/REFLEX SYPHILIS TREPONEMAL W/REFLEX Lab Routine Supervision of high risk , antepartum (HCC) Expected: 11/26/2024, Expires: 10/26/2025 [facility] Work Phone: Comment on above: Expected: 11/26/2024, Expires: 6 Start: 11-23-2024 End: 11-23-2024 Patient encounter procedure [facility] Comment on above: growth Growth/OB Start: 10-26-2024 End: 10-26-2024 Patient encounter procedure [facility] Comment on above: Growth Growth/OB Start: 10-26-2024 End: 01-25-2025 Protein/Creatinine [Mass Ratio] in Urine [facility] Comment on above: Expected: 10/26/2024, Expires: 5 Start: 10-21-2024 [facility] Start: 09-28-2024 End: 09-28-2024 Patient encounter procedure [facility] Comment on above: Anatomy Scan OB Routine Start: 09-06-2024 End: 09-06-2024 Patient encounter procedure 09/06/2024 1:15 PM EDT Routine Office Visit OB/Gynecology [address] [place] [address] Ashley Mishra APRN.CNM [address] [place] [address] OB Routine OB/Gynecology Comment on above: OB Routine Start: 08-24-2024 End: 08-24-2024 Patient encounter procedure 08/24/2024 11:30 AM EDT Office Visit OB/Gynecology [address] [place] [address] Renetta Cabrera APRN.AGRICULTURE DEPARTMENT CHAIR [address] [place] [address] wt mgmt f/u OB/Gynecology Comment on above: wt mgmt f/u Start: 08-19-2024 End: 08-19-2024 Patient encounter procedure 08/19/2024 2:20 PM EDT Office Visit OB/Gynecology [address] [place] [address] Yasmin Delvalle MD [address] [place] [address] Annual OB/Gynecology Comment on above: Annual Start: 08-09-2024 End: 08-09-2024 Patient encounter procedure [facility] Comment on above: NUCAL OB Start: 07-14-2024 End: 10-13-2024 Bacteria identified in Urine by Culture BACTERIAL CULTURE, URINE Microbiology Routine Recurrent urinary tract infection affecting in first trimester (HCC) Expected: 07/14/2024, Expires: 10/13/2024 [facility] Comment on above: Expected: 07/14/2024, Expires: Start: 07-14-2024 End: 10-13-2024 Chromosome 21 trisomy [Presence] in Blood or Tissue by Cytogenetics [id number] PLUS Lab Routine Encounter for supervision of normal first in first trimester ([facility]) Expected: 07/14/2024, Expires: 10/13/2024 [facility] Work Phone: Comment on above: Expected: 07/14/2024, Expires: Start: 06-27-2024 End: 09-26-2024 ANEMIA REFLEX PANEL ANEMIA REFLEX PANEL Lab Routine Encounter for care in first trimester of first 7 weeks gestation of Expected: 06/27/2024, Expires: 09/26/2024 [facility] Work Phone: Comment on above: Expected: 06/27/2024, Expires: Start: 06-27-2024 End: 09-26-2024 Hemoglobin A1c in Blood HEMOGLOBIN A1C Lab Routine Encounter for care in first trimester of first 7 weeks gestation of Expected: 06/27/2024, Expires: 09/26/2024 [facility] Comment on above: Expected: 06/27/2024, Expires: Start: 06-27-2024 End: 09-26-2024 Hepatitis B virus surface Ag [Presence] in Serum HEPATITIS B SURFACE ANTIGEN Lab Routine Encounter for care in first trimester of first 7 weeks gestation of Expected: 06/27/2024, Expires: 09/26/2024 [facility] Comment on above: Expected: 06/27/2024, Expires: Start: 06-27-2024 End: 09-26-2024 Hepatitis C virus Ab [Presence] in Serum HEPATITIS C ANTIBODY IA WITH CONFIRMATION Lab Routine Encounter for care in first trimester of first 7 weeks gestation of Expected: 06/27/2024, Expires: 09/26/2024 [facility] Comment on above: Expected: 06/27/2024, Expires: Start: 06-27-2024 End: 09-26-2024 HIV 1+2 Ab [Presence] in Serum or Plasma by Immunoassay HIV 1/2 COMBO WITH REFLEX TO DIFFERENTIATION Lab Routine Encounter for care in first trimester of first 7 weeks gestation of Expected: 06/27/2024, Expires: 09/26/2024 [facility] Comment on above: Expected: 06/27/2024, Expires: Start: 06-27-2024 End: 06-27-2025 OBSTETRIC ULTRASOUND WHI OBSTETRIC ULTRASOUND WHI Anc Imaging Routine Encounter for care in first trimester of first 7 weeks gestation of Expected: 06/27/2024, Expires: 06/27/2025 [facility] Comment on above: Expected: 06/27/2024, Expires: Start: 06-27-2024 End: 09-26-2024 RUBELLA IGG ANTIBODY RUBELLA IGG ANTIBODY Lab Routine Encounter for care in first trimester of first 7 weeks gestation of Expected: 06/27/2024, Expires: 09/26/2024 [facility] Comment on above: Expected: 06/27/2024, Expires: Start: 06-27-2024 End: 09-26-2024 SYPHILIS TREPONEMAL W/REFLEX SYPHILIS TREPONEMAL W/REFLEX Lab Routine Encounter for care in first trimester of first 7 weeks gestation of Expected: 06/27/2024, Expires: 09/26/2024 [facility] Comment on above: Expected: 06/27/2024, Expires: Start: 06-27-2024 End: 09-26-2024 TYPE + SCREEN TYPE + SCREEN Blood Bank Routine Encounter for care in first trimester of first 7 weeks gestation of Expected: 06/27/2024, Expires: 09/26/2024 [facility] Comment on above: Expected: 06/27/2024, Expires: Start: 01-27-2024 End: 01-27-2024 ambulatory 01/27/2024 4:00 PM EDT [facility] OB/Gynecology [address] [place] [address] Renetta Cabrera APRN.AGRICULTURE DEPARTMENT CHAIR [address] [place] [address] [facility] OB/Gynecology Comment on above: Wgt Mgmt Start: 12-13-2023 Covid-19 Vaccine ( season) Covid-19 Vaccine () [facility] Start: 12-13-2023 Influenza vaccination Influenza Vaccine (#[facility]) [facility] Start: 11-04-2023 End: 11-04-2023 ambulatory 11/04/2023 10:00 AM EDT [facility] OB/Gynecology [address] [place] [address] Renetta Cabrera, TABLET MACHINE OPERATOR.AGRICULTURE DEPARTMENT CHAIR [address] [place] [address] wt mgmt f/u OB/Gynecology Comment on above: wt mgmt f/u Start: 09-17-2023 End: 12-17-2023 Bacteria identified in Urine by Culture [facility] Work Phone: Comment on above: Expected: 09/17/2023, Expires: Start: 09-17-2023 End: 09-17-2023 Patient encounter procedure 09/17/2023 2:00 PM EDT Office Visit OB/Gynecology [address] [place] [address] Renetta Cabrera, TABLET MACHINE OPERATOR.AGRICULTURE DEPARTMENT CHAIR [address] [place] [address] WT MGMT F/U OB/Gynecology Comment on above: WT MGMT F/U Start: 09-14-2023 End: 09-14-2023 Patient encounter procedure 09/14/2023 9:00 AM EDT Office Visit Neurology [address] [place] [address] Yasmin Pham, TABLET MACHINE OPERATOR.AGRICULTURE DEPARTMENT CHAIR [address] [place] [address] NIVIA (obstructive sleep apnea) [G47.33]; Class [...] Vaccine (7 - Td or Tdap) [facility] Start: 08-06-2023 End: 08-06-2023 Patient encounter procedure 08/06/2023 2:00 PM EDT Office Visit OB/Gynecology [address] [place] [address] Renetta Cabrera APRN.AGRICULTURE DEPARTMENT CHAIR [address] [place] [address] 3 wk mgmt follow up appt OB/Gynecology Comment on above: 3 wk mgmt follow up appt Start: 06-04-2023 End: 09-03-2023 Choriogonadotropin.beta subunit [Units/volume] in Serum or Plasma [facility] Work Phone: Comment on above: Expected: 06/04/2023, Expires: Start: 04-13-2023 Behavioral Health Screening Behavioral Health Screening [facility] Start: 04-13-2023 Depression Assessment Depression Assessment [facility] Start: 2023 Screening for malignant neoplasm of cervix HPV Testing [facility] Start: 12-12-2022 Covid-19 Vaccine ( season) Covid-19 Vaccine ( season) [facility] Start: 12-12-2022 Influenza vaccination Influenza Vaccine (#[facility]) [facility] Start: 04-13-2022 DEPRESSION ASSESSMENT DEPRESSION ASSESSMENT [facility] Start: 12-12-2021 Influenza vaccination INFLUENZA (#1) [facility] Start: 11-14-2020 Patient Education [facility], [facility]. Start: 10-07-2020 COVID-19 VACCINE (3 - Booster for Moderna series) COVID-19 VACCINE (3 - Booster for Moderna series) [facility] Start: 07-04-2020 COVID-19 VACCINE (3 - Booster for Moderna series) COVID-19 VACCINE (3 - Booster for Moderna series) [facility] Start: 07-04-2020 Covid-19 Vaccine (3 - Moderna series) Covid-19 Vaccine (3 - Moderna series) [facility] Start: 02-09-2020 HPV Vaccine (1 - 3-dose SCDM series) HPV Vaccine (1 - 3-dose SCDM series) [facility] Start: 11-16-2017 Mri any jt lower extrem w/o contrast matrl MRI KNEE W/O CONTRAST (60280) Start: 16-Nov-2017 Intent Comments: left [employer]; [employer] Comment on above: left Start: 10-20-2017 Polysom any age sleep stage 1-3 addl lianne attnd POLYSOMNOGRAPHY, 1-3 (09153) Start: 20-Oct-2017 Intent [employer]; [employer]. Start: 07-14-2016 Patient Education ANKLE SPRAIN Indication: Sprain of left ankle, unspecified ligament, initial encounter Start: 14-Jul-2016 Instruction Type: Patient Education [employer]; [employer]. Start: 10-22-2015 Us pelvic nonobstetric real-time image complete US PELVIS, COMPLETE (94244) Start: 22-Oct-2015 Intent [employer]. Start: 2014 PAP TESTING PAP TESTING [facility] Start: 02-09-2012 Urine microalbumin profile [facility] [place] [facility] Start: 05-30-2011 Blood count hemoglobin HGB (HEMOGLOBIN) (57080) Start: 30-May-2011 09:22-05:00 Request [employer]). Start: 05-30-2011 Blood count hematocrit HCT (HEMATOCRIT) (10819) Start: 30-May-2011 09:22-05:00 Request [employer]). Start: 2011 Anxiety Screening Anxiety Screening [facility] Start: 2011 Depression Screening Depression Screening [facility] Start: 2011 HEPATITIS C SCREENING HEPATITIS C SCREENING [facility] Start: 2011 Hepatitis C screening Hepatitis C Screening [facility] Start: 2011 HIV SCREENING HIV SCREENING [facility] Start: 2011 HIV screening HIV Screening [facility] Start: 2005 Adult depression screening assessment DEPRESSION SCREENING [facility] Start: 02-09-2004 Urine microalbumin profile DTaP,Tdap,Td Vaccine (6 - Tdap) [facility] Start: 1993 HEPATITIS B (1 of 3 - 3-dose series) HEPATITIS B (1 of 3 - 3-dose series) [facility] Start: 1993 Hepatitis B Vaccine (1 of 3 - 3-dose series) Hepatitis B Vaccine (1 of 3 - 3-dose series) [facility] Bacteria identified in Urine by Culture BACTERIAL CULTURE, URINE Microbiology Routine Encounter for care in first trimester of first 7 weeks gestation of 06/27/2024 3:26 PM EDT [facility] Chlamydia trachomatis+Neisseria gonorrhoeae DNA [Presence] in Unspecified specimen by ANGELIA with probe detection GONORRHEA/CHLAMYDIA NAAT Lab Routine Encounter for care in first trimester of first 7 weeks gestation of 06/27/2024 3:26 PM EDT [facility] Dehydroepiandrostero ne sulfate (DHEA-S) [Mass/volume] in Serum or Plasma [facility] End: 02-12-2025 nonstress test NON-STRESS TEST Procedures Routine Supervision of high risk , antepartum (HCC) Obesity in (HCC) Diet controlled gestational diabetes mellitus (GDM) in third trimester (HCC) 32 weeks gestation of (HCC) Once per week for 5 Occurrences starting 12/22/2024 until 02/12/2025 [facility] Work Phone: Comment on above: Once per week for 5 Occurrences starting 12/22/2024 until 02/12/2025 End: 03-27-2025 OBSTETRIC ULTRASOUND WHI OBSTETRIC ULTRASOUND WHI Anc Imaging Routine Obesity in (HCC) Once per month for 5 Occurrences starting 09/28/2024 until 03/27/2025 [facility] Work Phone: Comment on above: Once per month for 5 Occurrences startin g 09/28/2024 until 03/27/2025 End: 02-21-2025 OBSTETRIC ULTRASOUND WHI OBSTETRIC ULTRASOUND WHI Anc Imaging Routine 20 weeks gestation of (HCC) Supervision of high risk , antepartum (HCC) Obesity in (HCC) Diet controlled gestational diabetes mellitus (GDM) in second trimester (HCC) Once per month for 5 Occurrences starting 09/28/2024 until 02/21/2025 [facility] Work Phone: Comment on above: Once per month for 5 Occurrences startin g 09/28/2024 until 02/21/2025 PAP TEST PAP TEST Lab [facility] allen Encounter for gynecological examination (general) (routine) without abnormal findings Screening for cervical cancer Encounter for screening for human papillomavirus (HPV) 08/05/2023 2:45 PM EDT [facility] Work Phone: Patient Education [facility] Work Phone: Testosterone Free [Mass/volume] in Serum or Plasma [facility] Testosterone measurement [facility] TRICHOMONAS VAGINALIS NAAT TRICH OMONAS VAGINALIS NAAT Lab Routine 7 weeks gestation of 06/27/2024 3:26 PM EDT [facility] URINE OB DIP B/O URINE OB DIP B/ O Lab Routine Supervision of high risk , antepartum (HCC) Obesity in (HCC) Diet controlled gestational diabetes mellitus (GDM) in second trimester (HCC) Ordered: 11/23/2024 [facility] Work Phone: Comment on above: Ordered: 11/23/2024 URINE OB DIP B/O URINE OB DIP B/ O Lab Routine Supervision of high risk , antepartum (HCC) 30 weeks gestation of (HCC) Obesity in (HCC) Diet controlled gestational diabetes mellitus (GDM) in second trimester (HCC) Antepartum anemia complicating in third trimester (HCC) Elevated hemoglobin A1c History of pulmonary embolism NIVIA on CPAP Ordered: 12/06/2024 [facility] Work Phone: Comment on above: Ordered: 12/06/2024 [facility] Immunizations Immunization Date Immunization Notes Care Provider Claudio ernandez 02-18-2023 influenza, injectabl e, quadrivalent, preservative free Yasmin Delvalle MD Work Phone: [facility] 02-18-2023 influenza virus vaccine, unspecified formulation Renetta Cabrera APRN.AGRICULTURE DEPARTMENT CHAIR Work Phone: [facility] 02-21-2022 influenza, injectabl e, quadrivalent, preservative free Yasmin Delvalle MD Work Phone: [facility] 11-26-2020 tuberculin skin test ; purified protein derivative solution, intradermal Renetta Cabrera APRN.AGRICULTURE DEPARTMENT CHAIR Work Phone: [facility] 05-09-2020 COVID-Moderna (100 MCG/0.5 ML) [facility] Work Phone: [employer]; [facility] [employer]. 04-14-2020 COVID-Moderna (100 MCG/0.5 ML) [facility]- Work Phone: [employer]; [facility] [employer]. 02-03-2018 influenza virus vaccine, unspecified formulation [facility]- Work Phone: [employer]; [facility] [employer]. Comment on above: Had immunization. 02-03-2018 unknown vaccine or immune globulin [facility]- Work Phone: [employer]; [employer]. 02-03-2018 influenza, injectabl e, quadrivalent, contains preservative [facility]- Work Phone: [employer]; [employer] Comment on above: Site: Left DeltoidVI S Given: * Influenza - Inactivated (11/17/14) 08-10-2013 *IMMUNIZATION ADMIN ([id number]) [facility] Work Phone: [facility] 08-10-2013 tetanus toxoid, redu divya diphtheria toxoid, and acellular pertussis vaccine, adsorbed [facility]- Work Phone: [facility]. Comment on above: Site: Deltoid (Left) 09-03-1999 hepatitis B vaccine, pediatric or pediatric/adolescent dosage Yasmin Delvalle MD Work Phone: [facility] 02-13-1999 diphtheria, tetanus toxoids and acellular pertussis vaccine, unspecified formulation Yasmin Delvalle MD Work Phone: [facility] 02-13-1999 hepatitis B vaccine, pediatric or pediatric/adolescent dosage Yasmin Delvalle MD Work Phone: [facility] 02-13-1999 measles, mumps and rubella virus vaccine Yasmin Delvalle MD Work Phone: [facility] 02-13-1999 trivalent poliovirus vaccine, live, oral Yasmin Delvalle MD Work Phone: [facility] 07-20-1998 hepatitis B vaccine, pediatric or pediatric/adolescent dosage Yasmin Delvalle MD Work Phone: [facility] 07-20-1998 varicella virus vaccine Hilary Delvalle MD Work Phone: [facility] 09-30-1994 DTP-Haemophilus influenzae type b conjugate vaccine Yasmin Delvalle MD Work Phone: [facility] 09-30-1994 measles, mumps and rubella virus vaccine Yasmin Delvalle MD Work Phone: [facility] 02-18-1994 diphtheria, tetanus toxoids and pertussis vaccine Yasmin Delvalle MD Work Phone: [facility] 02-18-1994 haemophilus influenz ae type b vaccine, conjugate unspecified formulation Yasmin Delvalle MD Work Phone: [facility] 02-18-1994 trivalent poliovirus vaccine, live, oral Yasmin Delvalle MD Work Phone: [facility] 1993 diphtheria, tetanus toxoids and pertussis vaccine Yasmin Delvalle MD Work Phone: [facility] 1993 trivalent poliovirus vaccine, live, oral Yasmin Delvalle MD Work Phone: [facility] 1993 diphtheria, tetanus toxoids and pertussis vaccine Yasmin Delvalle MD Work Phone: [facility] 1993 haemophilus influenz ae type b vaccine, conjugate unspecified formulation Yasmin Delvalle MD Work Phone: [facility] 1993 trivalent poliovirus vaccine, live, oral Yasmin Delvalle MD Work Phone: [facility] Payers Date Payer Category Payer Self-pay [id number] 2024 Private Health Insurance [employer] [id number] 2022 Unknown [id number] 2022 Unknown [id number] 2020 Unknown [id number] Self-pay [id number] Unknown [id number] Unknown [id number] Unknown [facility] [id number] Unknown [id number] Unknown [id number] Unknown [id number] Unknown [id number] Social History Date Type Detail Facility Tobacco smoking stat [facility] Unknown if ever smoked [facility] Start: 1995 Sex Assigned At Not on file [facility] Start: 03-06-2020 Tobacco smoking stat [facility] Tobacco smoking consumption unknown [facility] Start: 06-18-2022 End: 10-21-2024 Tobacco smoking status VAIS Never smoked tobacco [facility] Start: 06-18-2022 Tobacco use and exposure Smokeless tobacco non-user [facility] Start: 03-06-2020 Non-smoker [facility] Start: 1995 Sex Assigned At Female [facility] Start: 06-18-2022 End: 09-14-2023 History of Social function [facility] Start: 06-18-2022 End: 09-14-2023 Tobacco use panel [facility] Start: 11-26-2017 National Score (1-100), lower number is lower risk Not on file [facility] Start: 04-17-2023 End: 05-26-2024 Alcohol intake Current drinker of alcohol (finding) [facility] Start: 04-13-2023 Gender identity Identifies as female gender (finding) [facility] Start: 05-24-2023 Alcohol Comment rarely [facility] Start: 06-27-2024 End: 10-21-2024 Alcoholic beverage intake Ex-drinker (finding) [facility] Start: 06-22-2024 Education 15 [facility] Start: 05-22-2024 [facility] Alcohol Use: Alcohol Use: ; Occasional alcohol use. [facility] Tobacco use: Tobacco use: ; N ever smoker. [facility] Medical Equipment Procedure Code Equipment Code Equipment Origin al Text Equipment Identifier Dates Use as directed to check glucose levels up to seven times daily. [id number] Start: 09-28-2024 Use as directed to check glucose levels up to seven times daily. [id number] Start: 09-28-2024 Goals Date Patient Goal Desired Activity /State Personal health goal Personal health goal Mental Status Date Assessment Result Facility 10-21-2024 Cognitive function Level Of Cons ciousness Awake;Alert;Appropriate;Follow s Commands [facility] Work Phone: Clinical Notes 06-18-2022 to 01-30-2025 Telephone Encounter - Cat Villanueva RN - 12/26/2024 12:28 PM EDTTelephone Encounter - Cat Villanueva RN - 12/26/2024 12:28 PM EDTTelephone Encounter - Lisandro Palencia MD - 12/26/2024 12:14 PM EDT Note Date & Type Note Facility 01-30-2025 Note HNO ID: [id number] Author: MARTINA VASQUEZ, ? Service: ? Author Type: Patient International Marketing Coordinator Type: Progress Notes Filed: 01/30/2025 07:35 Note Text: POPULATION HEALTH NAVIGATION OUTREACH Action/FYI Added facilities operations technician to the chart through a note. No direct outreach was made. Reason for Outreach Medicaid OB/Peds Care Gaps due: N/A Patient Contacted: Unable or unnecessary to reach patient: facilities operations technician added Navigation Signature: Martina Vasquez Population Health Navigator January 30, 2025 7:35 AM [facility] 01-30-2025 Note Patient Outreach (JOSSY GENAO) LAURA CASTELLANOS ([id number]) 1995 F [facility] Date Time Provider Department 01/30/25 CECILIATiaMARTINA CARLA During your visit today, we recorded the following information about you: Martina Vasquez 01/30/2025 7:35 AM Signed POPULATION HEALTH NAVIGATION OUTREACH Action/FYI Added facilities operations technician to the chart through a note. No direct outreach was made. Reason for Outreach Medicaid OB/Peds Care Gaps due: N/A Patient Contacted: Unable or unnecessary to reach patient: [place] facilities operations technician added Navigation Signature: Martina Vasquez Population Health [...] Encounter Status:Closed by MARTINA VASQUEZ on 01/30/25 [facility] 01-24-2025 Note HNO ID: [id number] Author: DEVANG DELUNA MD Service: ? Author [...] None Interpretation: Reactive SIGNATURE: Devang Deluna MD [facility] 12-26-2024 Telephone encount er Note Patient notified and L&D notified patient coming in. Cat Villanueva RN [facility] 12-26-2024 Miscellaneous Notes Formattin g of [...] you like her seen here, L&D, or [facility] to rule out SROM? Regina Benitez RN documented in this encounter [facility] 12-26-2024 Telephone encount er Note Recommend L&D for eval [facility] Work Phone: 12-26-2024 Telephone encount er [...] you like her seen here, L&D, or [facility] to rule out SROM? Regina Benitez, RN [facility] 12-23-2024 Note Indication Evaluation of growth [...] 11 oz EFW by: Hadlock (HC-AC-FL) Extended Web Administrator 7.2 mm Extremities / Bony Struc FL [...] RTO 2 wks Lisandro Palencia DO [facility] 12-22-2024 Miscellaneous Notes Formattin g of [...] Palencia DO documented in this encounter [facility] 12-22-2024 Instructions Chelsy Walter MA - 12/22/2024 3:03 PM EDT SEQUENTIAL SCREENINGS The [facility] offers sequential screenings for women who [...] It will require an appointment with our assembly technician. This is not an ultrasound performed [...] the above symptoms, contact our office at [phone] and ask to speak with a nurse. After hours, you can call doctors registry at [phone] OR call [facility] at [phone] and ask to have the doctor senior executive compensation analyst paged. If you consider this an emergency, dial 9-1-1 or go to your nearest emergency department. NEED HELP? Are you dealing with a violent or abusive relationship? Are you a victim of rape or sexual assult? Call [facility] ([place]) 24 hour Crisis Hotline: 980.276.1291 or 495-268-7581. MANUAL Your Guide to a Healthy manual is now on-line. Visit [email or web address] [email or web address] to download your free copy documented in this encounter [facility] 12-07-2024 Telephone encount er Note I can't treat based on those numbers. Needs to be more consistent. Fastings look good. [facility] 12-07-2024 Miscellaneous Notes Formattin g of this note might be different from the original. I can't treat based on those numbers. Needs to be more consistent. Fastings look good. 30w2d Saw JAX today. Cat Villanueva RN documented in this encounter [facility] 12-06-2024 Telephone encount er Note 30w2d Saw JAX today. Cat Villanueva RN [facility] 12-06-2024 Progress note Formatting of t [...] in 2 weeks Ashley Mishra APRN.CNM [facility] 12-06-2024 Miscellaneous Notes Formattin g of [...] Mishra APRN.CNM documented in this encounter [facility] 12-06-2024 Instructions Ewa Salinas MA - 12/06/2024 2:24 PM EDT SEQUENTIAL SCREENINGS The [facility] offers sequential screenings for women who [...] It will require an appointment with our assembly technician. This is not an ultrasound performed [...] the above symptoms, contact our office at [phone] and ask to speak with a nurse. After hours, you can call doctors registry at [phone] OR call [facility] at [phone] and ask to have the doctor senior executive compensation analyst paged. If you consider this an emergency, dial 9-1 or go to your nearest emergency department. NEED HELP? Are you dealing with a violent or abusive relationship? Are you a victim of rape or sexual assult? Call [facility] ([place]) 24 hour Crisis Hotline: 393.819.4821 or 507-534-4257. MANUAL Your Guide to a Healthy manual is now on-line. Visit [email or web address] [email or web address] to download your free copy documented in this encounter [facility] 11-25-2024 Note Indication Evaluation of growth [...] 9 oz EFW by: Hadlock (HC-AC-FL) Extended Web Administrator 6.7 mm Extremities / Bony Struc FL [...] gestational diabetes mellitus (GDM) in second trimester ([facility]) - ICD9: 648.83, ICD10: O24.410 BS log reviewed, only 2 Postprandials elevated, cont. to monitor - URINE OB DIP B/O Yasmin Delvalle MD [facility] 11-23-2024 Miscellaneous Notes Formattin g of this note might be different from the original. RR- VB No. LOF No. CTXS No. Movement: present. Other c/o: YUSUF much improved Medication list reviewed. SENSITIVE EXAM: Sensitive exam not performed. Physical Exam See Flow Sheet Abd: soft, nontender A/P 28w3d Estimated Date of Delivery: 02/12/25 ASSESSMENT/PLAN: 1. Supervision of high risk , antepartum ([facility]) - ICD9: V23.9, ICD10: O09.90 (primary diagnosis) 28 week labs today, not 1 hr - URINE OB DIP B/O 2. Obesity in ([facility]) - ICD9: 649.10, ICD10: O99.210 growth scans ordered - URINE OB DIP B/O 4. Diet controlled gestational diabetes mellitus (GDM) in second trimester ([facility]) - ICD9: 648.83, ICD10: O24.410 BS log reviewed, only 2 Postprandials elevated, cont. to monitor - URINE OB DIP B/O Yasmin Delvalle MD documented in this encounter [facility] 11-23-2024 Instructions Alison Heard MA - 11/23/2024 3:39 PM EDT SEQUENTIAL SCREENINGS The [facility] offers sequential screenings for women who [...] It will require an appointment with our assembly technician. This is not an ultrasound performed [...] the above symptoms, contact our office at [phone] and ask to speak with a nurse. After hours, you can call doctors registry at [phone] OR call [facility] at [phone] and ask to have the doctor senior executive compensation analyst paged. If you consider this an emergency, dial 2--8 or go to your nearest emergency department. NEED HELP? Are you dealing with a violent or abusive relationship? Are you a victim of rape or sexual assult? Call [facility] ([place]) 24 hour Crisis Hotline: 687.219.4397 or 799-992-8262. MANUAL Your Guide to a Healthy manual is now on-line. Visit [email or web address] to download your free copy documented in this encounter [facility] 10-26-2024 Progress note Formatting of t [...] CREATININE RATIO; Future 24 weeks gestation of ([facility]) Orders: COMPLETE BLOOD COUNT; Future COMPREHENSIVE METABOLIC PANEL; Future PROTEIN / CREATININE RATIO; Future Obesity in ([facility]) Orders: COMPLETE BLOOD COUNT; Future COMPREHENSIVE METABOLIC PANEL; Future PROTEIN / CREATININE RATIO; Future Elevated hemoglobin A1c GDM FBS 86-95 feels like good control since watching these Orders: COMPLETE BLOOD COUNT; Future COMPREHENSIVE METABOLIC PANEL; Future PROTEIN / CREATININE RATIO; Future headache in second trimester ([facility]) Orders: COMPLETE BLOOD COUNT; Future COMPREHENSIVE [...] likely recommend PP. Yasmin Delvalle M.D. [facility] 10-26-2024 Miscellaneous Notes Formattin g of [...] Delvalle M.D. documented in this encounter [facility] 10-21-2024 Discharge summary [facility] 10-21-2024 Discharge summary Note Date/Time October 21, 2024 4:14pm [facility] Medical Records Department [address] [place] [address] Emergency Department Summary 10/21/24 MR#: [id number] Acct: [id number] Name: LAURA CASTELLANOS Rep #:[id number] : [...] her . Patient was seen at the GROUP ACCOUNT DIRECTOR office today in which they told her [...] some relief. Patient was seen at the GROUP ACCOUNT DIRECTOR office today in which they told her [...] MD [Primary Care Provider] - Print Language: Korean What to do if you have Problems For any increased pain, shortness of breath, bleeding, nausea or vomiting, chestpain, or any unexpected problems, contact your Primary Care Provider. Call Doctors Registry ([phone]) or report to the closest Emergency Room. Call 911 if necessary. 10/21/24 1612 <Electronically signed by Aldo Rodriguez DO> Cosigner Signature (if applicable): CC: Dr. Blessing Pena MD ~ Signed [facility] Work Phone: 1(637) 226-921107-11-2025 Progress note* Quick Notes - Ashley Mishra [...] RTO as scheduled Ashley Mishra APRN.CNM [facility]07-11-2025 Miscellaneous Notes* Quick Notes - Ashley [...] Ashley Mishra APRN.CNM documented in this encounter[facility] Instructions* Patient Instructions* Marcelle Mehta LPN - 10/21/2024 11:34 AM EDT SEQUENTIAL SCREENINGS The [facility] offers sequential screenings for women who [...] testing. It will require an appointment withour assembly technician. This is not an ultrasound performed [...] the above symptoms, contact our office at [phone] and ask to speak with anurse. After hours, you can call doctors registry at [phone] OR call [facility] at [phone] ask to have the doctor senior executive compensation analyst paged. If you consider this an emergency, dial 12-12-7 or go to your nearest emergency department. NEED HELP? Are you dealing with a violent or abusive relationship? Are you a victim of rape or sexual assult? Call [facility] ([place]) 24 hour Crisis Hotline: 715.297.8379 or 135-665-5157. MANUAL Your Guide to a Healthy manual is now on-line. Visit [email or web address] to download your free copy documented [facility] Telephone encounter Note * Telephone Encounter - Bozena Patton RN - 10/21/2024 10:08 AM EDT Patient called and appointment scheduled. Bozena Patton RN [facility]07-11-2025 Miscellaneous Notes* Telephone Encounter - Bozena [...] Bozena Patton RN documented in this encounter[facility] Telephone encounter Note * Telephone Encounter - Ashley Mishra APRN.CNM - 10/21/2024 9:56 AM EDT Please just fit her in I will see her at 1130 [facility]07-11-2025 Telephone encounter Note* Telephone Encounter - [...] if so where? Bozena Patton RN [facility]07-10-2025 Telephone encounter Note* Telephone Encounter - Lisandro Palencia MD - 10/20/2024 4:42 PM EDT Message sent to patient [facility] Work Phone: [phone]) 282-855007-10-2025 Telephone encounter Note* Telephone Encounter - Bozena Patton RN - 10/20/2024 4:27 PM EDT Can you review in CP's absence? Bozena Patton RN [facility]06-18-2025 NoteHNO ID: [id number] Author: ASHLEY MISHRA APRN.KARI Service: ? Author Type: Test Hole Driller Type: Progress Notes Filed: 10/04/2024 11:38 Note [...] a day. To send log weekly. Offered office clinician and life educator, declines at this time and feels she is comfortable with diet. Reviewed if levels continue to be increased will imitate insulin therapy. 6.History of pulmonary embolism -postsurgical PE -Anticoagulation therapy PP PTL precautions reviewed and when to call RTO in 4 weeks [facility] History of Present illness Narrative* Ashley Mishra [...] of GDM. Reviewed importance of diet control, ubvsdeq30-58 minutes after meals, and testing 4 times a day. To send log weekly. Offered office clinician and life educator, declines at this time and feels she is comfortable with diet. Reviewed if levels continue to be increased will imitate insulin therapy. 6.History of pulmonary embolism -postsurgical PE -Anticoagulation therapy PP PTL precautions reviewed and when to call RTO in 4 weeks Ashley Mishra APRN.CNM documented in this encounterTri[facility] Instructions* Patient Instructions* Ashley Mishra APRN.CNM [...] the above symptoms, contact our office at [phone] and ask to speak with anurse. After hours, you can call doctors registry at [phone] OR call [facility] at [phone] ask to have the doctor senior executive compensation analyst paged. If you consider this an emergency, dial 7-5-8 or go to your nearest emergency department. NEED HELP? Are you dealing with a violent or abusive relationship? Are you a victim of rape or sexual assult? Call [facility] ([place]) 24 hour Crisis Hotline: 879.594.1568 or 840-217-5390. MANUAL Your Guide to a Healthy manual is now on-line. Visit [email or web address] to download your free copy documented in this encounterTri[facility] Instructions* Patient Instructions* Ashley Mishra APRN.CNM [...] the above symptoms, contact our office at [phone] and ask to speak with anurse. After hours, you can call doctors registry at [phone] OR call [facility] at [phone] ask to have the doctor senior executive compensation analyst paged. If you consider this an emergency, dial 9-1-8 or go to your nearest emergency department. NEED HELP? Are you dealing with a violent or abusive relationship? Are you a victim of rape or sexual assult? Call [facility] ([place]) 24 hour Crisis Hotline: 836.147.2492 or 922-512-9017. MANUAL Your Guide to a Healthy manual is now on-line. Visit [email or web address] to download your free copy documented in [facility] encounter[facility] Miscellaneous Notes* Quick Notes - Ashley [...] Ashley Mishra APRN.CNM documented in this encounterTri[facility]-20[facility] Progress note* Quick Notes - Ashley [...] in 3 weeks Ashley Mishra APRN.CNM [facility]04-29-2025 Evaluation + Plan note* Assessment & Plan Note - Citlaly Stuart MD - 08/09/2024 5:06 PM EDTAssociated Problem(s): Supervision of high risk , antepartum (HCC) STOP vaginal Progesterone [facility]04-29-2025 Evaluation + Plan note* Assessment & [...] disorder. Continue ASA at this time [facility]04-29-2025 Miscellaneous Notes* Assessment & Plan Note - Citlaly Stuart MD - 08/09/2024 5:06 PM EDTAssociated Problem(s): Supervision of high risk , antepartum (HCC) STOP vaginal Progesterone * Assessment & Plan Note - Citlaly Stuart MD - 08/09/2024 5:06 PM EDT Associated Problem(s): Pulmonary embolism ([facility]) - after leg surgery- would offer [...] type, unspecified whether acute cor pulmonale present ([facility]) - after leg surgery- would offer [...] Citlaly James MD documented in this encounterTri[facility]04[facility]-2025 Progress note* Quick Notes - Citlaly [...] gestation of (HCC) Citlaly James MD [facility]04-29-2025 Instructions* Patient Instructions* Chelsy Walter MA - 08/09/2024 3:22 PM EDT SEQUENTIAL SCREENINGS The [facility] offers sequential screenings for women who [...] testing. It will require an appointment withour assembly technician. This is not an ultrasound performed [...] the above symptoms, contact our office at [phone] and ask to speak with anurse. After hours, you can call doctors registry at [phone] OR call [facility] at [phone] ask to have the doctor senior executive compensation analyst paged. If you consider this an emergency, dial 5-- or go to your nearest emergency department. NEED HELP? Are you dealing with a violent or abusive relationship? Are you a victim of rape or sexual assult? Call [facility] ([place]) 24 hour Crisis Hotline: 604.385.7666 or 139-252-0041. MANUAL Your Guide to a Healthy manual is now on-line. Visit [email or web address] to download your free copy documented in this encounterTri[facility] Telephone encounter Note * Telephone Encounter - Regina Benitez RN - 06/30/2024 10:01 AM EDT Patient notified. Regina Benitez RN [facility]03-20-2025 Miscellaneous Notes* Telephone Encounter - Regina Benitez RN - 06/30/2024 10:01 AM EDT Patient notified. Regina Benitez RN * Telephone Encounter - Bozena Patton RN - 06/30/2024 8:13 AM EDT Left message to call office. Bozena Patton RN * Telephone Encounter - Bozena Patton RN - 06/30/2024 8:12 AM EDT +UTI, Keflex sent. Julia Hester APRN.CNP documented in this encounterTri[facility]03[facility] Telephone encounter Note * Telephone Encounter - Bozena Patton RN - 06/30/2024 8:13 AM EDT Left message to call office. Bozena Patton RN [facility]03-20-2025 Telephone encounter Note* Telephone Encounter - Bozena Patton RN - 06/30/2024 8:12 AM EDT +UTI, Keflex sent. Julia Hester APRN.CNP [facility]03-20-2025 Telephone encounter Note* Telephone Encounter - Julia Hester APRN.CNP - 06/30/2024 6:56 AM EDT +UTI, Keflex sent. Julia Hester APRN.AGRICULTURE DEPARTMENT CHAIR [facility]03-20-2025 Miscellaneous Notes* Telephone Encounter - Julia Hester APRN.CNP - 06/30/2024 6:56 AM EDT +UTI, Keflex sent. Julia Hester APRN.AGRICULTURE DEPARTMENT CHAIR documented in this encounterTri[facility]03-17-2025 Instructions* Patient Instructions* Marcelle Mehta LPN - 06/27/2024 2:27 PM EDT Please select the following link to access the [facility] Your Guide to a Healthy . [email or web address] documented in this encounterTrihealth M[facility]03-12-2025 NoteHNO ID: [id number] Author: JULIA HESTER APRN.SVETLANA Service: ? Author Type: Nurse Practitioner Type: Progress Notes Filed: 06/27/2024 15:34 Note Text: Patient declined laminator preforms. INITIAL OB ASSESSMENT HPI: Laura is a [...] Status: Partner: Name: Forrest Age: 36 Occupation: [employer] Gender: Male PAST MEDICAL HISTORY Diagnosis Date [...] Vision, Ringing in Ea (more content not included)...[facility]03-12-2025 History of Present illness Narrative* Julia Hester APRN.AGRICULTURE DEPARTMENT CHAIR - 06/22/2024 2:47 PM EDT Patient declined laminator preforms. INITIAL OB ASSESSMENT HPI: Laura is a [...] Status: Partner: Name: Forrest Age: 36 Occupation: [employer] Gender: Male PAST MEDICAL HISTORY Diagnosis Date [...] discussed with the Patient or Patient's Authorized Manager Machine. As applicable, any other physician, advance practice provider, medical student, or other health professional student that will be observing or involved in the sensitive examination for educational or training purposes was discussed with the Patient or Authorized Manager Machine. The Patient or Authorized Manager Machine has agreed to proceed with the sensitive [...] activity, CRL consistent with LMP. Julia Hester, TABLET MACHINE OPERATOR.AGRICULTURE DEPARTMENT CHAIR ASSESSMENT: 29 year old at 7w1d wks gestational age PLAN: 1) Patient oriented to practice. Patient given new OB orientation folder. Discussed nutrition, folic acid supplementation, dietary guidelines, exercise, smoking, alcohol, caffeine, and drug use. Discussed gestational weight gain guidelines. Discussed routine OB labs including STD/HIV. Discussed how to access Your guide to a health and the Health Services Manager. Reviewed midwifery and egg pasteurizer services that are available. 2) Screening: Hemoglobin [...] Julia Hester APRN.CNP documented in this encounterTrihealth [facility]02-13-2025 Instructions* Patient Instructions* Renetta Cabrera APRN.CNP [...] oz is 28 gm protein Beef, Chicken, [place], Pork, Tang 1 oz 7g Fish, Tuna [...] protein & 2 carb Protein AND carbs Beef/[place] Jerky 1 oz dried 10-15g protein - check carb count, can be high if sugar added Slim Ghulam - 6 gm protein and 4 net carb Great Value original turkey sausage sticks - 7 gm protein and 2 gm carb Sandra & Charanjit (at [facility]) Original smoked sausage sticks - 8 gm protein and 0 carb Imitation Crab Meat 1 oz - 2g protein & 4g carb Milk, skim 2% or 1% 8 oz - 8g protein & 12g carb Fairlife 2% milk 8 oz -13 g protein & 6g carb Wallisian yogurt Full Fat Wallisian Yogurt 1 cup - 20.4g protein & 9.1g carb 2% Wallisian Yogurt 1 cup - 22.7g protein & 9.1g carb 0% (fat-free) Wallisian Yogurt - 1 cup 24g protein & 9.3g carb Aldi Protein Wallisian yogurt single svg - 15g protein & 7g carb Chobani Zero Sugar single svg: - 12g protein & 5g carb Dannon Wallisian Light + Fit 1 single svg - 12g protein & 9g carb Oikos Pro single svg - 20g protein & 8g carb Oikos Triple Zero Wallisian Nonfat Yogurt 1 single svg - 15g protein & 7g carb :ratio, KETO Friendly Dairy Snack 1 single svg - 15g protein & 2g carb :ratio Protein 1 single svg - 25g protein & 8g carb Two Good Lowfat Wallisian Yogurt, [place], Lower Sugar - 12g protein & 2g carb Yoplait Protein 1 single svg 15gm protein & 5gm carb Dairy Free - [place] unsweetened Wallisian almond/soy 15 gm protein & 3 gm carb Dairy Free - True Goodness by [facility] coconut-based yogurt alternative 1 gm protein 1 gm net carb 180 sujatha Cheese each oz Brie 5.9g protein & 0.1g carb Cheddar 7g protein & 0.4g carb Piotr 6.7g protein & 0.7g carb Cream Cheese 1.7g protein & 1.2g carb Feta 4g protein & 1.2g carb Mozzarella 6.3g protein & 0.6g carb Parmesan 10g protein & 0.9g carb Algerian 7.6g protein & 1.5g carb Cottage Cheese 1/2 c Breakstone 2% 13g protein 7g carb Yesi 2% 13g protein 5 g carb Good Culture 2% 14g protein 3g carb Galo s Low Fat 12g protein & 4g carb Legumes Lentils cup 9g protein & 20g carb Mak beans cup 7g protein & 20g carb Kidney, Black, [place], Cannellini beans cup 8g protein & 20g carb Soybeans 1/2 c 14g complete protein & 8.5g carb [place] milk, unsweetened 8 oz 1g protein & 2g carb Soy milk 8 oz 3.5g protein & 1.6g carb Tofu 1/2 cup 10g protein & 2.3g carb Peanut butter, natural 2 Tbsp 7-8g protein & 4g net carbs, 190 calories PB2 powder 2 Tbsp 6g protein & 5g carb Nuts and Seeds per oz Almonds - 5.9g protein & 6.1g carb [place] Nuts - 4.0g protein & 3.4g carb [...] Seeds - 6.9g protein & 5g carb Mayes Seeds - 5.8g protein & 5.6g carb Walnuts - 4.3g protein & 3.8g carb Edamame Beans (soybean) snack 1 pack 11 gm complete protein 2 carb 5 (FIVE) gram carb vegetable options 1 cup raw OR cup cooked: Asparagus Carrera sprouts Beets Broccoli Brussel sprouts Cabbage Carrots Cauliflower Celery [place] Eggplant Green beans Lettuce Peppers Snap peas [...] High Protein Snack Ideas 1. Jerky 2. [place] mix without dried fruit 3. Ke[place] roll-ups 4. Wallisian yogurt 5. Veggies and yogurt dip 6. Tuna 7. Hard-boiled eggs 8. Peanut butter with celery 9. Cheese slices/ Cheese Stick 10. Handful of almonds, peanuts or walnuts 11. Cottage Cheese 12. Beef sticks 13. Protein bars 14. Canned [place] 15. Pumpkin seeds 16. Nut butter 17. Protein shakes 18. Avocado and chicken salad 19. Egg muffins 20. Leftover protein or lunch meat 21. 1/2 c blended cottage cheese or Wallisian yogurt with dry ranch/Mrs. Dash/herb seasoning mix [...] nuts and freeze documented in this encounterTri[facility]02[facility]25 History of Present illness Narrative* Renetta Cabrera APRN.SVETLANA - 05/26/2024 11:30 AM EST Images from the original note were not included. Virtual Visit: This is a virtual visit using [employer], [employer] Zoom Video Visit. It required patient- provider interaction for the medical decision making as documented below. I have communicated my name and active licensure. The patient s identity and physical location wereverified at the time of this visit. 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 documented in this encounterTrihealth M[facility]02-[facility]-2025 NoteHNO ID: [id number] Author: RENETTA CABRERA APRN.CNP Service: ? Author Type: Nurse Practitioner Type: Progress Notes Filed: 05/26/2024 18:46 Note Text: Virtual Visit: This is a virtual visit using [employer]ov[employer] Video Visit. It required patient-provider interaction for the medical decision making as documented below. I have communicated my name and active licensure. The patient?s identity and physical location were verified at the time of this visit. 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 Results: recent labs reviewed with the patient. Latest Ref Rng AND Units 06/18/2023 CMP Sodium 136 - 144 mmol/L 139 Potassium 3.7 - 5.1 mmol/L 3.8 Chloride 97 - 105 mmol/ (more content not included)...[facility] 01-27-2024 History of Present illness Narrative* Renetta Cabrera APRN.SVETLANA - 01/27/2024 4:00 PM EDT Images from the original note were not included. Virtual Visit: This is a virtual visit using [facility] Zoom Video Visit. It required patient- provider interaction for the medical decision making as documented below. I have communicated my name and active licensure. The patient s identity and physical location wereverified at the time of this visit. 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 Virtual Visit: This is a virtual visit using Play[employer] Zoom Video Visit. It required patient- provider interaction for the medical decision making as documented below. I have communicated my name and active licensure. The patient s identity and physical location wereverified at the time of this visit. 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 The patient is [...] 4 - Moderate documented in this encounterTrihealth Mcc[facility]06-11-2024 Telephone encounter Note * Telephone Encounter - Marcelle Mehta LPN - 09/22/2023 5:40 PM EDT Sleep Study received, no further action. Marcelle Mehta LPN [facility]06-11-2024 Miscellaneous Notes* Telephone Encounter - Marcelle Mehta LPN - 09/22/2023 5:40 PM EDT Sleep Study received, no further action. Marcelle Mehta LPN * Telephone Encounter - Marcelle Mehta LPN - 09/14/2023 8:09 AM EDT Phone call placed to [facility] [phone] spoke to Nataly abrams study for review. Marcelle Mehta LPN documented in this encounterTrihealth Mccull[facility]06-06-2024 Instructions* Patient Instructions* Renetta Cabrera APRN.AGRICULTURE DEPARTMENT CHAIR - 09/17/2023 2:22 PM EDT Weight Management: [...] slots. This should not be done on [facility] as you will not be scheduled appropriately [...] oz is 28 gm protein Beef, Chicken, [place], Pork, Tang 1 oz 7g Fish, Tuna [...] protein & 2 carb Protein AND carbs Beef/Kerens Jerky 1 oz dried 10-15g protein - [...] oz - 8g protein & 12g carb Wallisian yogurt Full Fat Wallisian Yogurt 1 cup - 20.4g protein & 9.1g carb 2% Wallisian Yogurt 1 cup - 22.7g protein & 9.1g carb 0% (fat-free) Wallisian Yogurt - 1 cup 24g protein & 9.3g carb Aldi Protein Wallisian yogurt single svg - 15g protein & 7g carb Chobani Zero Sugar single svg: - 11g protein & 5g carb Dannon Light + Fit 1 single svg - 12g protein & 9g carb Oikos Pro single svg - 20g protein & 8g carb Oikos Triple Zero Wallisian Nonfat Yogurt 1 single svg - 15g protein & 7g carb :ratio, KETO Friendly Dairy Snack 1 single svg - 15g protein & 2g carb :ratio Protein 1 single svg - 25g protein & 8g carb Two Good Lowfat Wallisian Yogurt, [place], Lower Sugar - 12g protein & 2g [...] carb Feta 4g protein & 1.2g carb Algerian Cheese 7.6g protein & 1.5g carb Galo s Low Fat Cottage Cheese 1/2cup 12g protein & 4g carb Legumes Lentils cup 9g protein & 20g carb Mak beans cup 7g protein & 20g carb Kidney, Black, [place], Cannellini beans cup 8g protein & 20g carb Soybeans 1/2 c 14g complete protein & 8.5g carb [place] milk, unsweetened 8 oz 1g protein & 2g carb Soy milk 8 oz 3.5g protein & 1.6g carb Tofu 1/2 cup 10g protein & 2.3g carb Peanut butter, natural 2 Tbsp 7-8g protein & 4g net carbs, 190 calories PB2 powder 2 Tbsp 6g protein & 5g carb Nuts and Seeds per oz Almonds - 5.9g protein & 6.1g carb [place] Nuts - 4.0g protein & 3.4g carb [...] Seeds - 6.9g protein & 5g carb Mayes Seeds - 5.8g protein & 5.6g carb Walnuts - 4.3g protein & 3.8g carb documented in this encounterTrihealth Mcc[facility]06-06-2024 History of Present illness Narrative* Renetta [...] 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 [facility] New Patient Evaluation PATIENT NAME: Laura Castellanos DATE OF SERVICE: September 11, 2023 CONSULTING PROVIDER: Renetta [address] [facility] [id number] REASON FOR CONSULT: Renetta Cabrera sends the [...] shift worker. 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 Marcelle Mehta LPN [facility]04-25-2024 Instructions* Patient Instructions* Renetta Cabrera APRN.SVETLANA [...] FOR YOUR WEIGHT LOSS PLAN Per updated [place] state rules, initially, a one month supply [...] aware of the following statements per the [facility] pharmacy board rules. 1. Timely refills [...] at or call local emergency services at 776. What other information should I know? Keep all appointments with your doctor and the laboratory. Do not let anyone else take your medication. Phentermine is a controlled substance. It is FDA approved for up to 3 months. Prescriptions may be refilled only a limited number of times. Keep a written list of all of your prescription and nonprescription (durd-kqa-piclkbs) medicines, in addition to vitamins, minerals, or [...] make up for a missed one. 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 B - 15-60 min after wakening [...] in the past NEURO: Migraines/YUSUF: yes 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: natural family planning BP 115/80 Pulse [...] 4 - Moderate documented in this encounterTrihealth Mcc[facility]04-24-2024 History of Present illness Narrative* Yasmin [...] L0 SAB0 IAB0 Ectopic0 Multiple0 Live Births0 Inspector Golf Ball History LMP: 07/21/2023 (Approximate), Having periods Age at Menarche: Age at First : Age at Menopause: Inspector Golf Ball History Comments: Sexual Activity: Yes; Male 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: [...] external genitalia normal, normal Bartholin's glands, urethra, [place]'s glands, no vulvar lesions, no cervical lesions, [...] Yasmin Delvalle MD documented in this encounterTrihealth Mccull[facility]04-03-2024 Instructions* Patient Instructions* Renetta Cabrera APRN.AGRICULTURE DEPARTMENT CHAIR - 07/15/2023 10:36 AM EDT Metformin - [...] and equals 21 g protein Beef, Chicken, [place], Pork, Tang 1 oz 7g Fish, Tuna [...] protein & 2 carb Protein AND carbs Beef/[place] Jerky 1 oz dried 10-15g protein - [...] oz - 8g protein & 12g carb Wallisian yogurt Full Fat Wallisian Yogurt 1 cup - 20.4g protein & 9.1g carb 2% Wallisian Yogurt 1 cup - 22.7g protein & 9.1g carb 0% (fat-free) Wallisian Yogurt - 1 cup 24g protein & 9.3g carb :ratio, KETO Friendly Dairy Snack 1 single svg - 15g protein & 2g carb :ratio Protein 1 single svg - 25g protein & 8g carb Dannon Light + Fit 1 single csvg - 12g protein & 9g carb Two Good Lowfat Wallisian Yogurt, [place], Lower Sugar - 12g protein & 2g carb Oikos Triple Zero Wallisian Nonfat Yogurt 1 single svg - 15g protein & 7g carb Aldi Protein Wallisian yogurt 15g protein & 7g carb Cheese each oz Brie 5.9g protein & 0.1g carb Cheddar Cheese 7g protein & 0.4g carb Mozzarella Cheese 6.3g protein & 0.6g carb Piotr Cheese 6.7g protein & 0.7g carb Parmesan Cheese 10g protein & 0.9g carb Cream Cheese 1.7g protein & 1.2g carb Feta 4g protein & 1.2g carb Algerian Cheese 7.6g protein & 1.5g carb Galo s Low Fat Cottage Cheese 1/2cup 12g protein & 4g carb Legumes Lentils cup 9g protein & 20g carb Mak beans cup 7g protein & 20g carb Kidney, Black, [place], Cannellini beans cup 8g protein & 20g carb Soybeans 1/2 c 14g protein & 8.5g carb Peanut butter, natural 2 Tbsp 7-8g protein & 4g net carbs, 190 calories PB2 powder 2 Tbsp 6g protein & 5g carb [place] milk, unsweetened 8 oz 1g protein & 2g carb Soy milk 8 oz 3.5g protein & 1.6g carb Tofu 1/2 cup 10g protein & 2.3g carb Nuts and Seeds per oz Pumpkin Seeds - 6.9g protein & 5g carb Almonds - 5.9g protein & 6.1g carb Mayes Seeds - 5.8g protein & 5.6g carb Pistachios - 5.8g protein & 7.8g carb Cashews - 5.1g protein & 9.2g carb Walnuts - 4.3g protein & 3.8g carb Hazelnuts - 4.2g protein & 4.7g carb [place] Nuts - 4.0g protein & 3.4g carb [...] Cabbage Spinach Peppers Green beans Carrots Tomato Randolph Carrera sprouts Cauliflower Lettuce Snap peas Broccoli [...] High Protein Snack Ideas 1. Jerky 2. [place] mix without dried fruit 3. [place] roll-ups 4. Wallisian yogurt 5. Veggies and yogurt dip 6. Tuna 7. Hard-boiled eggs 8. Peanut butter with celery 9. Cheese slices/ Cheese Stick 10. Handful of almonds, peanuts or walnuts 11. Cottage Cheese 12. Beef sticks 13. Protein bars 14. Canned [place] 15. Pumpkin seeds 16. Nut butter 17. Protein shakes 18. Avocado and chicken salad 19. Egg muffins 20. Leftover protein or lunch meat 21. 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 documented in this encounterTrihealth Mccull[facility]03-19-2024 Instructions* Patient Instructions* Alondra Jones RD [...] aiming for 1700 sujatha, try the pool Payward. documented in this encounterTrihealth Mccull[facility]03-19-2024 History of Present illness Narrative* Alondra [...] aiming for 1700 sujatha, try the pool Payward. Nutrition Monitoring & Evaluation: 1-2 lb weight loss per week Need for Follow up: 1 month Patient presents for initial MNT as relates to class 3 Body mass index is 40.92 kg/m . Other medical issues NIVIA, PCOS, has had several surgeries, pulmonary embolism. Highest weight 262, lowest [id number] with a goal weight of 190 lb. [...] to lose weight Diet History: Breakfast - Brand[place] and premier Sleep: nap Snack - no [...] TIME: 12:19 PM documented in this encounterTrihealth Mccull[facility]02-22-2024 Miscellaneous Notes* Telephone Encounter - Devang [...] Cat Villanueva RN documented in this encounterTrihealth Mccull[facility]02-11-2024 NoteHNO ID: [id number] Author: MARY MENJIVAR PA-C Service: ? Author Type: Physician Groover Runner Type: Progress Notes Filed: 05/24/2023 12:59 Note [...] history is provided by the patient. 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 PAST MEDICAL HISTORY Diagnosis Date [...] Yellow Yellow Clarity Clear Cloudy ! Specific [place], Ur 1.005 - 1.030 1.010 pH, Urine 5.0 - 8.0 6.0 Protein, Urine Negative Negative Glucose, Urine Negative Ne (more content not included)...[facility] 04-17-2023 Instructions* Patient Instructions* Yasmin Delvalle [...] to the medication. documented in this encounterTrihealth Mccull[facility]01-05-2024 History of Present illness Narrative* Yasmin [...] D&C and has gained some. OB History Inspector Golf Ball History LMP: 04/16/2023 (Approximate), Having periods Age at Menarche: Age at First : Age at Menopause: Inspector Golf Ball History Comments: Sexual Activity: Yes; Male 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: [...] Yasmin Delvalle MD documented in this encounterTrihealth Mccull[facility]09-12-2023 History of Present illness Narrative* Regina Benitez RN - 12/23/2022 2:21 PM EDT Received records from [facility] [employer] ACCOUNT DIRECTOR. Placed in binder for upcoming appointment. Regina Benitez RN documented in this encounterTrihealth Mccull[facility]03-08-2023 History of Present illness Narrative* Gilbert Vail APRN.AGRICULTURE DEPARTMENT CHAIR - 06/18/2022 8:13 AM EST June 18, [...] Gilbert Vail APRN.CNP documented in this encounterTrihealth Mccull[facility]03-08-2023 Instructions* Patient Instructions* Gilbert Vail APRN.CNP [...] spread by coughs, sneezes, anddirect contact, especially [id number]. A respiratory tract infection usually clears up [...] 102 F (39 C). [facility]* Diagnosis Viral upper respiratory tract infection- Primary Acute upper respiratory infections of unspecified site documented in this encounter [facility] noteNo assessment information availableWNorwalk Memorial Hospital Work Phone: Evaluation note* Diagnosis Oligo-ovulation- Primary Female infertility associated with anovulation Morbid obesity (HCC) Morbid obesity PCOS (polycystic ovarian syndrome) Polycystic ovaries documented in this encounter [facility] note* Diagnosis Late menses- Primary Other disorder of menstruation and other abnormal bleeding from female genital tract documented in this encounter [facility] note* Diagnosis Dietary counseling- Primary Dietary surveillance [...] obesity type (HCC) documented in this encounter [facility] note* Diagnosis NIVIA (obstructive sleep apnea)- Primary Obstructive sleep apnea (adult) (pediatric) PCOS (polycystic ovarian syndrome) Polycystic ovaries Circadian rhythm sleep disorder, shift work type Excessive daytime sleepiness Malaise and fatigue Other malaise and fatigue Class 3 severe obesity with serious comorbidity and body mass index (BMI) of 40.0 to 44.9 in adult, unspecified obesity type (HCC) documented in this encounter [facility] note* Diagnosis Encounter for gynecological examination (general) [...] type (HCC) documented in this encounter [facility]* Diagnosis NIVIA (obstructive sleep apnea)- Primary Obstructive sleep apnea (adult) (pediatric) PCOS (polycystic ovarian syndrome) Polycystic ovaries Circadian rhythm sleep disorder, shift work type Excessive daytime sleepiness Malaise and fatigue Other malaise and fatigue Class 3 severe obesity with serious comorbidity and body mass index (BMI) of 40.0 to 44.9 in adult, unspecified obesity type (HCC) documented in this encounter [facility]* Diagnosis NIVIA (obstructive sleep apnea)- Primary Obstructive sleep apnea (adult) (pediatric) Insomnia, unspecified type Obesity, Class II, BMI 35-39.9 Obesity, unspecified documented in this encounter [facility]* Diagnosis NIVIA on CPAP- Primary Obstructive sleep apnea (adult) (pediatric) PCOS (polycystic ovarian syndrome) Polycystic ovaries Class 3 severe obesity with serious comorbidity and body mass index (BMI) of 40.0 to 44.9 in adult, unspecified obesity type (HCC) UTI symptoms Other symptoms involving urinary system documented in this encounter [facility]* Diagnosis NIVIA on CPAP- Primary Obstructive sleep apnea (adult) (pediatric) PCOS (polycystic ovarian syndrome) Polycystic ovaries Class 3 severe obesity with serious comorbidity and body mass index (BMI) of 40.0 to 44.9 in adult, unspecified obesity type (HCC) documented in this encounter [facility]* Diagnosis NIVIA on CPAP- Primary Obstructive sleep apnea (adult) (pediatric) PCOS (polycystic ovarian syndrome) Polycystic ovaries Class 3 severe obesity with serious comorbidity and body mass index (BMI) of 40.0 to 44.9 in adult, unspecified obesity type (HCC) documented in this encounter [facility]* Diagnosis NIVIA on CPAP- Primary Obstructive sleep apnea (adult) (pediatric) PCOS (polycystic ovarian syndrome) Polycystic ovaries Class 3 severe obesity with serious comorbidity and body mass index (BMI) of 40.0 to 44.9 in adult, unspecified obesity type (HCC) documented in this encounter [facility]* Diagnosis Supervision of high risk , antepartum- Primary 7 weeks gestation of state, incidental with uncertain dates in first trimester Encounter for care in first trimester of first BMI 35.0-35.9,adult Body Mass Index 35.0-35.9, adult documented in this encounter [facility]* Diagnosis Encounter for supervision of normal first in first trimester (HCC)- Primary Supervision of normal first Recurrent urinary tract infection affecting in first trimester (HCC) documented in this encounter [facility] note* Diagnosis Supervision of high risk , antepartum (HCC)- Primary Pulmonary embolism, unspecified chronicity, unspecified pulmonary embolism type, unspecified whether acute cor pulmonale present (HCC) Obesity in (HCC) Obesity complicating , childbirth, or the puerperium, unspecified as to episode of care or not applicable 13 weeks gestation of ([facility]) state, incidental documented in this encounter [facility] note* Diagnosis Supervision of high risk , antepartum (HCC)- Primary Pulmonary embolism, unspecified chronicity, unspecified pulmonary embolism type, unspecified whether acute cor pulmonale present (HCC) Obesity in (HCC) Obesity complicating , childbirth, or the puerperium, unspecified as to episode of care or not applicable 13 weeks gestation of ([facility]) state, incidental Encounter for screening for malformation using ultrasound ([facility])- Primary 13 weeks gestation of ([facility]) state, incidental documented in this encounter [facility]* Diagnosis Supervision of high risk , antepartum (HCC)- Primary Pulmonary embolism, unspecified chronicity, unspecified pulmonary embolism type, unspecified whether acute cor pulmonale present (HCC) Obesity in (HCC) Obesity complicating , childbirth, or the puerperium, unspecified as to episode of care or not applicable 13 weeks gestation of ([facility]) state, incidental Supervision of high risk , antepartum (HCC)- Primary 17 weeks gestation of ([facility]) state, incidental Obesity in (HCC) Obesity complicating , childbirth, or the puerperium, unspecified as to episode of care or not applicable NIVIA on CPAP Obstructive sleep apnea (adult) (pediatric) History of pulmonary embolism Personal history of pulmonary embolism documented [facility]* Diagnosis Supervision of high risk , [...] for care in first trimester of first ([facility]) 7 weeks gestation of ([facility]) state, incidental documented in this encounter [facility]* Diagnosis Supervision of high risk , antepartum (HCC)- Primary Pulmonary embolism, unspecified chronicity, unspecified pulmonary embolism type, unspecified whether acute cor pulmonale present (HCC) Obesity in (HCC) Obesity complicating , childbirth, or the puerperium, unspecified as to episode of care or not applicable 13 weeks gestation of ([facility]) state, incidental 20 weeks gestation of ([facility])- Primary state, incidental Supervision of high risk , antepartum (HCC) Obesity in (HCC) Obesity complicating , childbirth, or the puerperium, unspecified as to episode of care or not applicable Diet controlled gestational diabetes mellitus (GDM) in second trimester ([facility]) NIVIA on CPAP Obstructive sleep apnea (adult) (pediatric) History of pulmonary embolism Personal history of pulmonary embolism [facility] Diagnosis Supervision of high risk , antepartum (HCC)- Primary Pulmonary embolism, unspecified chronicity, unspecified pulmonary embolism type, unspecified whether acute cor pulmonale present (HCC) Obesity in (HCC) Obesity complicating , childbirth, or the puerperium, unspecified as to episode of care or not applicable 13 weeks gestation of (HCC) state, incidental Supervision of high risk , antepartum (HCC)- Primary 23 weeks gestation of ([facility]) state, incidental headache in second trimester ([facility]) documented in this encounter [facility] note* Diagnosis Supervision of high risk , [...] CREATININE RATIO; Future documented in this encounter [facility] note* Diagnosis Supervision of high risk , antepartum (HCC)- Primary Pulmonary embolism, unspecified chronicity, unspecified pulmonary embolism type, unspecified whether acute cor pulmonale present (HCC) Obesity in (HCC) Obesity complicating , childbirth, or the puerperium, unspecified as to episode of care or not applicable 13 weeks gestation of ([facility]) state, incidental Supervision of high risk , antepartum ([facility])- Primary 24 weeks gestation of ([facility]) state, incidental Obesity in ([facility]) Obesity complicating , childbirth, or the puerperium, unspecified as to episode of care or not applicable Elevated hemoglobin A1c Other abnormal blood chemistry headache in second trimester ([facility]) History of pulmonary embolism Personal history of pulmonary embolism Supervision of high risk , antepartum ([facility])- Primary Obesity in ([facility]) Obesity complicating , childbirth, or the puerperium, unspecified as to episode of care or not applicable Diet controlled gestational diabetes mellitus (GDM) in second trimester ([facility]) documented in this encounter [facility] note* Diagnosis Supervision of high risk , antepartum ([facility])- Primary Pulmonary embolism, unspecified chronicity, unspecified pulmonary embolism type, unspecified whether acute cor pulmonale present ([facility]) Obesity in ([facility]) Obesity complicating , childbirth, or the puerperium, unspecified as to episode of care or not applicable 13 weeks gestation of ([facility]) state, incidental Supervision of high risk , antepartum ([facility])- Primary 24 weeks gestation of ([facility]) state, incidental Obesity in ([facility]) Obesity complicating , childbirth, or the puerperium, unspecified as to episode of care or not applicable Elevated hemoglobin A1c Other abnormal blood chemistry headache in second trimester ([facility]) History of pulmonary embolism Personal history of pulmonary embolism 28 weeks gestation of ([facility])- Primary state, incidental Obesity in ([facility]) Obesity complicating , childbirth, or the puerperium, unspecified as to episode of care or not applicable Suspected problem with growth not found [facility] Diagnosis Supervision of high risk , antepartum ([facility])- Primary Pulmonary embolism, unspecified chronicity, unspecified pulmonary embolism type, unspecified whether acute cor pulmonale present (HCC) Obesity in ([facility]) Obesity complicating , childbirth, or the puerperium, unspecified as to episode of care or not applicable 13 weeks gestation of ([facility]) state, incidental Supervision of high risk , antepartum ([facility])- Primary 24 weeks gestation of ([facility]) state, incidental Obesity in (HCC) Obesity complicating , childbirth, or the puerperium, unspecified as to episode of care or not applicable Elevated hemoglobin A1c Other abnormal blood chemistry headache in second trimester ([facility]) History of pulmonary embolism Personal history of pulmonary embolism Supervision of high risk , antepartum ([facility])- Primary 30 weeks gestation of ([facility]) state, incidental Obesity in ([facility]) Obesity complicating , childbirth, or the puerperium, unspecified as to episode of care or not applicable Diet controlled gestational diabetes mellitus (GDM) in second trimester ([facility]) Antepartum anemia complicating in third trimester ([facility]) Elevated hemoglobin A1c Other abnormal blood chemistry History of pulmonary embolism Personal history of pulmonary embolism NIVIA on CPAP Obstructive sleep apnea (adult) (pediatric) documented in this encounter [facility] note* Diagnosis Supervision of high risk , antepartum ([facility])- Primary Pulmonary embolism, unspecified chronicity, unspecified pulmonary embolism type, unspecified whether acute cor pulmonale present ([facility]) Obesity in ([facility]) Obesity complicating , childbirth, or the puerperium, unspecified as to episode of care or not applicable 13 weeks gestation of ([facility]) state, incidental Supervision of high risk , antepartum ([facility])- Primary 24 weeks gestation of ([facility]) state, incidental Obesity in ([facility]) Obesity complicating , childbirth, or the puerperium, unspecified as to episode of care or not applicable Elevated hemoglobin A1c Other abnormal blood chemistry headache in second trimester ([facility]) History of pulmonary embolism Personal history of pulmonary embolism Supervision of high risk , antepartum ([facility])- Primary Obesity in ([facility]) Obesity complicating , childbirth, or the puerperium, unspecified as to episode of care or not applicable Diet controlled gestational diabetes mellitus (GDM) in third trimester ([facility]) 32 weeks gestation of ([facility]) state, incidental documented in this encounter [facility] note* Diagnosis Supervision of high risk , antepartum ([facility])- Primary Pulmonary embolism, unspecified chronicity, unspecified pulmonary embolism type, unspecified whether acute cor pulmonale present (HCC) Obesity in (HCC) Obesity complicating , childbirth, or the puerperium, unspecified as to episode of care or not applicable 13 weeks gestation of (HCC) state, incidental Supervision of high risk , antepartum (HCC)- Primary 24 weeks gestation of ([facility]) state, incidental Obesity in (HCC) Obesity complicating , childbirth, or the puerperium, unspecified as to episode of care or not applicable Elevated hemoglobin A1c Other abnormal blood chemistry headache in second trimester ([facility]) History of pulmonary embolism Personal history of pulmonary embolism 20 weeks gestation of ([facility]) state, incidental Supervision of high risk , antepartum ([facility]) Obesity in (HCC) Obesity complicating , childbirth, or the puerperium, unspecified as to episode of care or not applicable Diet controlled gestational diabetes mellitus (GDM) in second trimester ([facility]) documented in this encounter [facility]* Diagnosis Supervision of high risk , antepartum (HCC)- Primary Pulmonary embolism, unspecified chronicity, unspecified pulmonary embolism type, unspecified whether acute cor pulmonale present (HCC) Obesity in (HCC) Obesity complicating , childbirth, or the puerperium, unspecified as to episode of care or not applicable 13 weeks gestation of ([facility]) state, incidental Supervision of high risk , antepartum (HCC)- Primary 24 weeks gestation of ([facility]) state, incidental Obesity in (HCC) Obesity complicating , childbirth, or the puerperium, unspecified as to episode of care or not applicable Elevated hemoglobin A1c Other abnormal blood chemistry headache in second trimester ([facility]) History of pulmonary embolism Personal history of pulmonary embolism Antepartum anemia complicating in third trimester ([facility])- Primary [facility] Discharge instructionsAdditional Instructions Follow-up with primary care physician. 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 Diagnoses NIVIA on CPAP OB Procedures OFFICE/OUTPATIENT ESTABLISHED HIGH MDM 40 MIN OFFICE/OUTPATIENT EST PT MAY NOT REQ PHYS/QHP EST WHI OB Julia Hester, [place].AGRICULTURE DEPARTMENT CHAIR [address] [place] [address] Phone: tel: fax: Citlaly Stuart MD [address] [place] [address] Phone: tel: fax: Referral ID Status Reason Start Date Expiration Date V isits Requested Visits Authorized [id number] Authorized 09/06/2024 04/12/2025 99 99 [facility] Summary Purpose Family History No Family [...] Will No March 06 10:34am Power of Tire Servicer No March 06, 2020 10:34am Advance Directive Response Recorded Date/ Time Do you have a Healthcare Power of Tire Servicer? No October 21, 2024 3:42pm Reason for Referral Specialty Diagnoses / Procedures Referred By Staci simmons Referred To Contact Diagnoses NIVIA (obstructive sleep apnea) Class 3 severe obesity with serious comorbidity and body mass index (BMI) of 40.0 to 44.9 in adult, unspecified obesity type (HCC) Renetta Cabrera APRN.AGRICULTURE DEPARTMENT CHAIR [address] [place] [address] Referral ID Status Reason Start Date Expiration Date Visits Re quested Visits Authorized [id number] Closed 1 1 Chief Complaint and Reason for Visit Chief Complaint Admit Date MIGRAINE October 21, 2024 12:2 4pm Chief Complaint Admit Date MIGRAINE October 21, 2024 12:2 4pm R/O ROM December 26, 2024 2:20pm Additional Source Comments INFORMATION SOURCE (unrecogn ized section and content) DATE CREATED AUTHOR 03/22/2020 [facility] DATE CREATED AUTHOR AUTHOR'S ORGANIZ ATION 06/13/2020 [facility] ([place]) DATE CREATED AUTHOR AUTHOR'S ORGANIZ ATION 11/06/2022 [facility] DATE CREATED AUTHOR AUTHOR'S ORGANIZ ATION 01/18/2024 [facility] DATE CREATED AUTHOR AUTHOR'S ORGANIZ ATION 02/07/2024 [facility] nt DATE CREATED AUTHOR AUTHOR'S ORGANIZ ATION 07/25/2024 [facility] DATE CREATED AUTHOR AUTHOR'S ORGANIZ ATION 01/29/2025 [facility] DATE CREATED AUTHOR AUTHOR'S ORGANIZ ATION 01/31/2025 [facility] Source Comments (unrecognize d section and content) In the event this informatio n is protected by the Federal Confidentiality of Alcohol and Drug Abuse Patient Records regulations: The Federal rules restrict any use of the information to criminally investigate or prosecute any alcohol or drug abuse patient.[facility] Hospital[facility] the event this information is protected by the Federal Confidentiality of Alcohol and Drug Abuse Patient Records regulations: The Federal rules restrict any use of the information to criminally investigate or prosecute any alcohol or drug abuse patient.[facility] the event this information is protected by the Federal Confidentiality of Alcohol and Drug Abuse Patient Records regulations: The Federal rules restrict any use of the information to criminally investigate or prosecute any alcohol or drug abuse patient.[facility] HospitalIn the event this information is protected by the Federal Confidentiality of Alcohol and Drug Abuse Patient Records regulations: The Federal rules restrict any use of the information to criminally investigate or prosecute any alcohol or drug abuse patient.[facility] HospitalIn the event this information is protected by the Federal Confidentiality of Alcohol and Drug Abuse Patient Records regulations: The Federal rules restrict any use of the information to criminally investigate or prosecute any alcohol or drug abuse patient.[facility] HospitalIn the event this information is protected by the Federal Confidentiality of Alcohol and Drug Abuse Patient Records regulations: The Federal rules restrict any use of the information to criminally investigate or prosecute any alcohol or drug abuse patient.[facility] HospitalIn the event this information is protected by the Federal Confidentiality of Alcohol and Drug Abuse Patient Records regulations: The Federal rules restrict any use of the information to criminally investigate or prosecute any alcohol or drug abuse patient.[facility] HospitalIn the event this information is protected by the Federal Confidentiality of Alcohol and Drug Abuse Patient Records regulations: The Federal rules restrict any use of the information to criminally investigate or prosecute any alcohol or drug abuse patient.[facility] HospitalIn the event this information is protected by the Federal Confidentiality of Alcohol and Drug Abuse Patient Records regulations: The Federal rules restrict any use of the information to criminally investigate or prosecute any alcohol or drug abuse patient.[facility] HospitalIn the event this information is protected by the Federal Confidentiality of Alcohol and Drug Abuse Patient Records regulations: The Federal rules restrict any use of the information to criminally investigate or prosecute any alcohol or drug abuse patient.[facility] HospitalIn the event this information is protected by the Federal Confidentiality of Alcohol and Drug Abuse Patient Records regulations: The Federal rules restrict any use of the information to criminally investigate or prosecute any alcohol or drug abuse patient.[facility] HospitalIn the event this information is protected by the Federal Confidentiality of Alcohol and Drug Abuse Patient Records regulations: The Federal rules restrict any use of the information to criminally investigate or prosecute any alcohol or drug abuse patient.[facility] HospitalIn the event this information is protected by the Federal Confidentiality of Alcohol and Drug Abuse Patient Records regulations: The Federal rules restrict any use of the information to criminally investigate or prosecute any alcohol or drug abuse patient.[facility] HospitalIn the event this information is protected by the Federal Confidentiality of Alcohol and Drug Abuse Patient Records regulations: The Federal rules restrict any use of the information to criminally investigate or prosecute any alcohol or drug abuse patient.[facility] HospitalIn the event this information is protected by the Federal Confidentiality of Alcohol and Drug Abuse Patient Records regulations: The Federal rules restrict any use of the information to criminally investigate or prosecute any alcohol or drug abuse patient.[facility] HospitalIn the event this information is protected by the Federal Confidentiality of Alcohol and Drug Abuse Patient Records regulations: The Federal rules restrict any use of the information to criminally investigate or prosecute any alcohol or drug abuse patient.[facility] HospitalIn the event this information is protected by the Federal Confidentiality of Alcohol and Drug Abuse Patient Records regulations: The Federal rules restrict any use of the information to criminally investigate or prosecute any alcohol or drug abuse patient.[facility] HospitalIn the event this information is protected by the Federal Confidentiality of Alcohol and Drug Abuse Patient Records regulations: The Federal rules restrict any use of the information to criminally investigate or prosecute any alcohol or drug abuse patient.[facility] HospitalIn the event this information is protected by the Federal Confidentiality of Alcohol and Drug Abuse Patient Records regulations: The Federal rules restrict any use of the information to criminally investigate or prosecute any alcohol or drug abuse patient.[facility] HospitalIn the event this information is protected by the Federal Confidentiality of Alcohol and Drug Abuse Patient Records regulations: The Federal rules restrict any use of the information to criminally investigate or prosecute any alcohol or drug abuse patient.[facility] HospitalIn the event this information is protected by the Federal Confidentiality of Alcohol and Drug Abuse Patient Records regulations: The Federal rules restrict any use of the information to criminally investigate or prosecute any alcohol or drug abuse patient.[facility] HospitalIn the event this information is protected by the Federal Confidentiality of Alcohol and Drug Abuse Patient Records regulations: The Federal rules restrict any use of the information to criminally investigate or prosecute any alcohol or drug abuse patient.[facility] HospitalIn the event this information is protected by the Federal Confidentiality of Alcohol and Drug Abuse Patient Records regulations: The Federal rules restrict any use of the information to criminally investigate or prosecute any alcohol or drug abuse patient.[facility] HospitalIn the event this information is protected by the Federal Confidentiality of Alcohol and Drug Abuse Patient Records regulations: The Federal rules restrict any use of the information to criminally investigate or prosecute any alcohol or drug abuse patient.[facility] HospitalIn the event this information is protected by the Federal Confidentiality of Alcohol and Drug Abuse Patient Records regulations: The Federal rules restrict any use of the information to criminally investigate or prosecute any alcohol or drug abuse patient.[facility] HospitalIn the event this information is protected by the Federal Confidentiality of Alcohol and Drug Abuse Patient Records regulations: The Federal rules restrict any use of the information to criminally investigate or prosecute any alcohol or drug abuse patient.[facility] HospitalIn the event this information is protected by the Federal Confidentiality of Alcohol and Drug Abuse Patient Records regulations: The Federal rules restrict any use of the information to criminally investigate or prosecute any alcohol or drug abuse patient.[facility] HospitalIn the event this information is protected by the Federal Confidentiality of Alcohol and Drug Abuse Patient Records regulations: The Federal rules restrict any use of the information to criminally investigate or prosecute any alcohol or drug abuse patient.[facility] HospitalIn the event this information is protected by the Federal Confidentiality of Alcohol and Drug Abuse Patient Records regulations: The Federal rules restrict any use of the information to criminally investigate or prosecute any alcohol or drug abuse patient.[facility] HospitalIn the event this information is protected by the Federal Confidentiality of Alcohol and Drug Abuse Patient Records regulations: The Federal rules restrict any use of the information to criminally investigate or prosecute any alcohol or drug abuse patient.[facility] HospitalIn the event this information is protected by the Federal Confidentiality of Alcohol and Drug Abuse Patient Records regulations: The Federal rules restrict any use of the information to criminally investigate or prosecute any alcohol or drug abuse patient.[facility] HospitalIn the event this information is protected by the Federal Confidentiality of Alcohol and Drug Abuse Patient Records regulations: The Federal rules restrict any use of the information to criminally investigate or prosecute any alcohol or drug abuse patient.[facility] HospitalIn the event this information is protected by the Federal Confidentiality of Alcohol and Drug Abuse Patient Records regulations: The Federal rules restrict any use of the information to criminally investigate or prosecute any alcohol or drug abuse patient.[facility] HospitalIn the event this information is protected by the Federal Confidentiality of Alcohol and Drug Abuse Patient Records regulations: The Federal rules restrict any use of the information to criminally investigate or prosecute any alcohol or drug abuse patient.[facility] HospitalIn the event this information is protected by the Federal Confidentiality of Alcohol and Drug Abuse Patient Records regulations: The Federal rules restrict any use of the information to criminally investigate or prosecute any alcohol or drug abuse patient.[facility] HospitalIn the event this information is protected by the Federal Confidentiality of Alcohol and Drug Abuse Patient Records regulations: The Federal rules restrict any use of the information to criminally investigate or prosecute any alcohol or drug abuse patient.[facility] HospitalIn the event this information is protected by the Federal Confidentiality of Alcohol and Drug Abuse Patient Records regulations: The Federal rules restrict any use of the information to criminally investigate or prosecute any alcohol or drug abuse patient.[facility] HospitalIn the event this information is protected by the Federal Confidentiality of Alcohol and Drug Abuse Patient Records regulations: The Federal rules restrict any use of the information to criminally investigate or prosecute any alcohol or drug abuse patient.[facility] HospitalIn the event this information is protected by the Federal Confidentiality of Alcohol and Drug Abuse Patient Records regulations: The Federal rules restrict any use of the information to criminally investigate or prosecute any alcohol or drug abuse patient.[facility] HospitalIn the event this information is protected by the Federal Confidentiality of Alcohol and Drug Abuse Patient Records regulations: The Federal rules restrict any use of the information to criminally investigate or prosecute any alcohol or drug abuse patient.[facility] Hospital[facility] the event this information is protected by the Federal Confidentiality of Alcohol and Drug Abuse Patient Records regulations: The Federal rules restrict any use of the information to criminally investigate or prosecute any alcohol or drug abuse patient.[facility] HospitalIn the event this information is protected by the Federal Confidentiality of Alcohol and Drug Abuse Patient Records regulations: The Federal rules restrict any use of the information to criminally investigate or prosecute any alcohol or drug abuse patient.[facility] HospitalIn the event this information is protected by the Federal Confidentiality of Alcohol and Drug Abuse Patient Records regulations: The Federal rules restrict any use of the information to criminally investigate or prosecute any alcohol or drug abuse patient.[facility] HospitalIn the event this information is protected by the Federal Confidentiality of Alcohol and Drug Abuse Patient Records regulations: The Federal rules restrict any use of the information to criminally investigate or prosecute any alcohol or drug abuse patient.[facility] HospitalIn the event this information is protected by the Federal Confidentiality of Alcohol and Drug Abuse Patient Records regulations: The Federal rules restrict any use of the information to criminally investigate or prosecute any alcohol or drug abuse patient.[facility] Care Teams (unrecognized sec tion and content) Life Sciences Teacher Relationship Specialty Start Date End Date [facility] PCP - General 11/26/20 Life Sciences Teacher Relationship Specialty Start Date End Date [facility] PCP - General 11/26/20 Team Status: Active Member Role Status Dates Dr. Tona Boggs MD Primary Care Provider Active Team Status: Inactive Member Role Status Dates Dr. Tona Boggs MD Primary Care Provider Active Dr. Armen Boggs MD Attending Provider Active Life Sciences Teacher Relationship Specialty Start Date End Date [facility] PCP - General 11/26/20 Life Sciences Teacher Relationship Specialty Start Date End Date [facility] PCP - General 11/26/20 Life Sciences Teacher Relationship Specialty Start Date End Date [facility] PCP - General 11/26/20 Life Sciences Teacher Relationship Specialty Start Date End Date [facility] PCP - General 11/26/20 Life Sciences Teacher Relationship Specialty Start Date End Date [facility] PCP - General 11/26/20 Life Sciences Teacher Relationship Specialty Start Date End Date [facility] PCP - General 11/26/20 Life Sciences Teacher Relationship Specialty Start Date End Date [facility] PCP - General 11/26/20 Life Sciences Teacher Relationship Specialty Start Date End Date [facility] PCP - General 11/26/20 Life Sciences Teacher Relationship Specialty Start Date End Date [facility] PCP - General 11/26/20 Life Sciences Teacher Relationship Specialty Start Date End Date [facility] PCP - General 11/26/20 Life Sciences Teacher Relationship Specialty Start Date End Date [facility] PCP - General 11/26/20 Life Sciences Teacher Relationship Specialty Start Date End Date [facility] PCP - General 11/26/20 Life Sciences Teacher Relationship Specialty Start Date End Date [facility] PCP - General 11/26/20 Life Sciences Teacher Relationship Specialty Start Date End Date [facility] PCP - General 11/26/20 Life Sciences Teacher Relationship Specialty Start Date End Date [facility] PCP - General 11/26/20 Life Sciences Teacher Relationship Specialty Start Date End Date [facility] PCP - General 11/26/20 Life Sciences Teacher Relationship Specialty Start Date End Date [facility] PCP - General 11/26/20 Life Sciences Teacher Relationship Specialty Start Date End Date [facility] PCP - General 11/26/20 Life Sciences Teacher Relationship Specialty Start Date End Date [facility] PCP - General 11/26/20 Life Sciences Teacher Relationship Specialty Start Date End Date [facility] PCP - General 11/26/20 Life Sciences Teacher Relationship Specialty Start Date End Date [facility] PCP - General 11/26/20 Life Sciences Teacher Relationship Specialty Start Date End Date [facility] PCP - General 11/26/20 Life Sciences Teacher Relationship Specialty Start Date End Date [facility] PCP - General 11/26/20 Life Sciences Teacher Relationship Specialty Start Date End Date [facility] PCP - General 11/26/20 Life Sciences Teacher Relationship Specialty Start Date End Date [facility] PCP - General 11/26/20 Life Sciences Teacher Relationship Specialty Start Date End Date [facility] PCP - General 11/26/20 Team Status: Active Member Role/Relationship Status Dates Dr. Blessing Pena MD Primary Care Provider Active Team Status: Inactive Member Role/Relationship Status Dates Dr. Aldo Rodriguez DO Emergency Provider Activ e Start: October 21, 2024 End: October 21, 2024 Dr. Blessing Pena MD Primary Care Provider Active Start: October 21, 2024 End: October 21, 2024 Life Sciences Teacher Relationship Specialty Start Date End Date [facility] PCP - General 11/26/20 Life Sciences Teacher Relationship Specialty Start Date End Date [facility] PCP - General 11/26/20 Life Sciences Teacher Relationship Specialty Start Date End Date [facility] PCP - General 11/26/20 Life Sciences Teacher Relationship Specialty Start Date End Date [facility] PCP - General 11/26/20 Life Sciences Teacher Relationship Specialty Start Date End Date [facility] PCP - General 11/26/20 Life Sciences Teacher Relationship Specialty Start Date End Date [facility] PCP - General 11/26/20 Life Sciences Teacher Relationship Specialty Start Date End Date [facility] PCP - General 11/26/20 Life Sciences Teacher Relationship Specialty Start Date End Date [facility] PCP - General 11/26/20 Life Sciences Teacher Relationship Specialty Start Date End Date [facility] PCP - General 11/26/20 Team Status: Inactive [...] December 26, 2024 End: December 26, 2024 Life Sciences Teacher Relationship Specialty Start Date End Date [facility] PCP - General 11/26/20 Life Sciences Teacher Relationship Specialty Start Date End Date [facility] PCP - General 11/26/20 Reason for Visit (unrecogniz ed section and content) Reason Onset Date Comments Care 11/23/2024 Specialty Diagnoses / Procedures Referred By Staci simmons Referred To Contact Road Freight Brake Coupler / GROUP ACCOUNT DIRECTOR Diagnoses NIVIA on CPAP OB Procedures OFFICE/OUTPATIENT ESTABLISHED HIGH MDM 40 MIN OFFICE/OUTPATIENT EST PT MAY NOT REQ PHYS/QHP EST WHI OB [place], Julia, TABLET MACHINE OPERATOR.AGRICULTURE DEPARTMENT CHAIR [address] [place] [address] Phone: tel: fax:[phone] Citlaly Stuart MD [address] [place] [address] Phone: tel: fax: Referral ID Status Reason Start Date Expiration Date V isits Requested Visits Authorized [id number] Authorized 09/06/2024 04/12/2025 99 99 Reason Onset Date Comments Care 10/21/2024 Reason Onset Date Comments Care 09/06/2024 Reason Comments Weight Management Specialty Diagnoses / Procedures Referred By Contac t Referred To Contact [facility] Diagnoses . Procedures . [facility] [address] [place] [address] [facility] [place] [address] Referral ID Status Reason Start Date Expiration Date V isits Requested Visits Authorized [id number] Closed Financial Clearance Required - Self Pay Patient Cleared - Qualified for 501r 02/06/2024 05/03/2024 1 1 Specialty Diagnoses / Procedures Referred By Contac t Referred To Contact Gynecology / GROUP ACCOUNT DIRECTOR Diagnoses Wgt Mgmt Procedures VIDEO EST WHI PATIENT Self Renetta Cabrera APRN.AGRICULTURE DEPARTMENT CHAIR [address] [place] [address] Referral ID Status Reason Start Date Expiration Date V isits Requested Visits Authorized [id number] Closed Financial Clearance Required - Self Pay Clearance Not Met - Admin/New Product Trainer /Director Advise to Postpone/Heydi edule or Not Proceed Patient Cleared - Qualified for 501r 01/27/2024 04/26/2024 1 1 Specialty Diagnoses / Procedures Referred By Contac t Referred To Contact [facility] Diagnoses Consult, Test, Treat Procedures CONSULT TO NUTRITION THERAPY All Medically Necessary Services Renetta Cabrera APRN.AGRICULTURE DEPARTMENT CHAIR [address] [place] [address] [place] [address] Referral ID Status Reason Start Date Expiration Date Visits Requested Visits Authorized [id number] Authorized PCP Requested Referral Financial Clearance Required [...] Procedures CONSULT TO NUTRITION THERAPY Renetta Cabrera APRN.AGRICULTURE DEPARTMENT CHAIR [address] [place] [address] [facility] [address] [place] [address] Referral ID Status Reason Start Date Expiration Date Visits Requested Visits Authorized [id number] Ref Not Required PCP Requested Referral 06/16/2023 06/15/2024 1 1 Reason Comments Yearly Exam Reason Comments Weight Management Reason Comments New Patient Evaluation Reason Comments Initial OB Visit Reason Comments Results Reason Onset Date Comments Care 08/09/2024 Referral ID Status Reason Start Date Expiration Date V isits Requested Visits Authorized [id number] Authorized 08/09/2024 04/12/2025 99 99 Reason Comments US Specialty Diagnoses / Procedures Referred By Contac t Referred To Contact [facility] Diagnoses Encounter for care in first trimester of first (HCC) 7 weeks gestation of (HCC) Procedures OBSTETRIC ULTRASOUND WHI US PREG UTERUS AFTER 1ST TRIMEST GESTATION Julia Hester APRN.AGRICULTURE DEPARTMENT CHAIR [address] [place] [address] Phone: tel: fax: [address] [address] Referral ID Status Reason Start Date Expiration Date V isits Requested Visits Authorized [id number] Closed Auto-Generate d Referral 06/27/2024 06/27/2025 1 1 Reason Onset Date Comments Results 06/27/2024 Reason Comments US Specialty Diagnoses / Procedures Referred By Contac t Referred To Contact [facility] Diagnoses Encounter for care in first trimester of first (HCC) 7 weeks gestation of (HCC) Procedures OBSTETRIC ULTRASOUND WHI US PREG UTERUS AFTER 1ST TRIMEST GESTATION Julia Hester, [place].AGRICULTURE DEPARTMENT CHAIR [address] [place] [address] Phone: tel: fax: [phone] [place] [address] Referral ID Status Reason Start Date Expiration Date V isits Requested Visits Authorized [id number] Closed Auto-Generate d Referral 06/27/2024 06/27/2025 1 1 Reason Onset Date Comments Care 09/28/2024 Specialty Diagnoses / Procedures Referred By Contac t Referred To Contact Road Freight Brake Coupler / GROUP ACCOUNT DIRECTOR Diagnoses NIVIA on CPAP OB Procedures OFFICE/OUTPATIENT ESTABLISHED HIGH MDM 40 MIN OFFICE/OUTPATIENT EST PT MAY NOT REQ PHYS/QHP EST WHI OB Julia Hester, TABLET MACHINE OPERATOR.AGRICULTURE DEPARTMENT CHAIR [address] [place] [address] Phone: tel: fax:[phone] Citlaly Stuart MD [address] [place] [address] Phone: tel: fax: Specialty Diagnoses / Procedures Referred By Contac t Referred To Contact [facility] Diagnoses Obesity in (HCC) Procedures OBSTETRIC ULTRASOUND WHI US PREG UTERUS AFTER 1ST TRIMEST GESTATION Maryann Acosta MD [address] [place] [address] Phone: tel: fax: [address] [address] Referral ID Status Reason Start Date Expiration Date V isits Requested Visits Authorized [id number] Closed Auto-Generate d Referral 09/28/2024 09/28/2025 1 1 Reason Onset Date Comments Care 12/06/2024 Reason Onset Date Comments Care 12/22/2024 Specialty Diagnoses / Procedures Referred By Contac t Referred To Contact [facility] Diagnoses 20 weeks gestation of (HCC) Supervision of high risk , antepartum (HCC) Obesity in (HCC) Diet controlled gestational diabetes mellitus (GDM) in second trimester (HCC) Procedures OBSTETRIC ULTRASOUND WHI US PREG UTERUS AFTER 1ST TRIMEST GESTATION Ashley Mishra, TABLET MACHINE OPERATOR.CNM [address] [place] [address] Phone: tel: fax: Former[facility] Named [facility] [address] [place] [address] Referral ID Status Reason Start Date Expiration Date V isits Requested Visits Authorized [id number] Closed Auto-Generate d Referral 09/28/2024 09/28/2025 5 [...] BE BASED ON THE PRIMARY CLINICAL RECORDS. [employer] provides no warranty or guarantee of the accuracy or completeness of information in this document.
[2025-01-31 19:38] VITALS: BP 128/66; PULSE 73; RESP 16; TEMP 36.4
[2025-01-31 19:41] VITALS: PULSE 71; O2SAT 98
[2025-01-31 19:46] VITALS: BMI 44.4
[2025-01-31 20:34] LABS: Hematocrit 33.8 % (37-47); Hemoglobin 11.1 g/dL (12.0-15.0); Immature Granulocytes Count 0.050 X10^3/uL (0.0-0.0); Mean Corp Hgb Conc 32.8 g/dL (32-36); Mean Corpuscular Volume 86.9 fL (81-99); Mean Platelet Vol. 11.5 fl (6.2-12.0); NRBC Flagged by Analyzer 0 % (0-5); Platelet Count 287 K/mm3 (150-450); RBC Distribution Width CV 14.2 % (11.6-14.6); RBC Distribution Width SD 45.0 fl (35.1-43.9); Red Blood Count 3.89 M/mm3 (4.2-5.4); White Blood Count 10.3 K/mm3 (4.4-11.0)
[2025-01-31 20:45] LABS: Syphilis Antibodies Nonreactive (Nonreactive)
[2025-01-31 21:01] VITALS: PULSE 62; RESP 16; TEMP 36.7; O2SAT 98
[2025-01-31 21:02] VITALS: BP 125/68; PULSE 66
[2025-02-01] VITALS (50 sets, daily range): BP systolic 90–159; BP diastolic 50–86; PULSE 49–75; RESP 12–16; TEMP 36.1–36.6; O2SAT 92–100
[2025-02-01] MEDS: Lactated Ringers 1,000 ML 50 ML IV (05:03)
[2025-02-01] MEDS: 0.9% Normal Saline Single 100 ML IV.SOLN. INTRA-UTER (08:19)
[2025-02-01] MEDS: Lactated Ringers 1,000 ML 999 ML IV (08:40)
--- NOTE | 2025-02-01 08:49 | PCM.HP.OB ---
HPI - General General Date of Admission: 01/31/25 Date of Service: 02/01/25 Chief Complaint: IOL for GDM HPI Narrative JAZMYN CASTELLANOS, is a 29 F who presents induction of labor for GDM. Fasting BG increasing. Maternal Data Information Final PHYLLIS: 02/12/25 Gestational age: 37+3 [facility] Medical History (Updated 02/01/25 @ 08:[address] Regina Reddy MD) Infertility Blood clotting disorder Gestational diabetes Home Medications ?Medication ?Instructions ?Recorded ?Last Taken ?Type aspirin 81 mg tablet,delayed 81 mg PO DAILY@0800 03/06/20 01/31/25 History release calcium carb-ergocalciferol (vit tab PO 12/26/24 12/25/24 21:30 History D2) 600 mg calcium-200 unit tablet coenzyme Q10 100 mg capsule (Co 100 mg PO DAILY 12/26/24 12/26/24 12:30 History Q-10) metformin 500 mg tablet,extended 1,000 mg PO BID GDM 12/26/24 01/31/25 History release 24 hr vit no.95-ferrous 1 tab PO DAILY 12/26/24 01/31/25 History fumarate 28 mg-folic acid 800 mcg tablet () Allergy/AdvReac Type Severity Reaction Status Date / Time chlorhexidine (From AdvReac Rash Verified 01/31/25 19:54 Hibiclens) Latex, Natural Rubber AdvReac Rash Verified 01/31/25 19:54 Surgical History History of surgery History of surgery History of surgery Social History Smoking Status: Never smoker History Elective abortions Hx Para 0 Spontaneous abortions Hx # Term Pregnancies Ectopic pregnancies Hx # Pregnancies Multiple births # of living children ROS Constitutional Constitutional: Denies fatigue, fever(s) or malaise Eyes Eyes: Denies change in vision ENT HEENT: Denies dizziness or headache(s) Cardiovascular Cardiovascular: Denies chest pain, dyspnea or lightheadedness Respiratory/Chest Respiratory/Chest: Denies cough or dyspnea Gastrointestinal Gastrointestinal: Denies change in bowel habits Genitourinary Genitourinary: Denies burning urination or genital lesions Integumentary Integumentary: Denies rash Neurologic Neurologic: Denies confusion, dizziness, headache(s), numbness or weakness Vital Signs Vital Signs Vital Signs: 01/31/25 19:38 01/31/25 19:38 01/31/25 19:38 Temperature Temperature Source Temporal Pulse Rate 73 Respiratory Rate Blood Pressure 128/66 H BP Systolic 128 BP Diastolic 66 Pulse Ox 01/31/25 19:38 01/31/25 19:38 01/31/25 19:41 Temperature 97.6 F L Temperature Source Pulse Rate 71 Respiratory Rate 16 Blood Pressure BP Systolic BP Diastolic Pulse Ox 01/31/25 19:41 01/31/25 21:01 01/31/25 21:01 Temperature Temperature Source Temporal Pulse Rate 62 Respiratory Rate Blood Pressure BP Systolic BP Diastolic Pulse Ox 98 01/31/25 21:01 01/31/25 21:01 01/31/25 21:01 Temperature 98.1 F Temperature Source Pulse Rate Respiratory Rate 16 Blood Pressure BP Systolic BP Diastolic Pulse Ox 98 01/31/25 21:02 01/31/25 21:02 02/01/25 00:15 Temperature Temperature Source Temporal Pulse Rate 66 Respiratory Rate Blood Pressure 125/68 H BP Systolic 125 BP Diastolic 68 Pulse Ox 02/01/25 00:15 02/01/25 00:15 02/01/25 00:16 Temperature 97.3 F L Temperature Source Pulse Rate Respiratory Rate 14 Blood Pressure 126/73 H BP Systolic 126 BP Diastolic 73 Pulse Ox 02/01/25 00:16 02/01/25 00:16 02/01/25 04:08 Temperature Temperature Source Temporal Pulse Rate 66 Respiratory Rate Blood Pressure BP Systolic BP Diastolic Pulse Ox 98 02/01/25 04:08 02/01/25 04:08 02/01/25 04:08 Temperature Temperature Source Pulse Rate 56 L Respiratory Rate 14 Blood Pressure 135/65 H BP Systolic 135 BP Diastolic 65 Pulse Ox 02/01/25 04:08 02/01/25 04:08 02/01/25 04:08 Temperature 97.7 F L Temperature Source Pulse Rate 63 Respiratory Rate Blood Pressure BP Systolic BP Diastolic Pulse Ox 98 02/01/25 08:21 02/01/25 08:21 02/01/25 08:24 Temperature Temperature Source Temporal Pulse Rate 57 L Respiratory Rate Blood Pressure BP Systolic BP Diastolic Pulse Ox 99 02/01/25 08:24 02/01/25 08:24 02/01/25 08:26 Temperature 97.4 F L Temperature Source Pulse Rate Respiratory Rate 16 Blood Pressure 159/76 H BP Systolic 159 BP Diastolic 76 Pulse Ox 02/01/25 08:26 02/01/25 08:26 02/01/25 08:26 Temperature Temperature Source Pulse Rate 59 L 55 L Respiratory Rate Blood Pressure BP Systolic BP Diastolic Pulse Ox 99 02/01/25 08:30 02/01/25 08:30 02/01/25 08:31 Temperature Temperature Source Pulse Rate 64 55 L Respiratory Rate Blood Pressure 128/67 H BP Systolic 128 BP Diastolic 67 Pulse Ox 02/01/25 08:31 02/01/25 08:36 02/01/25 08:36 Temperature Temperature Source Pulse Rate 57 L Respiratory Rate Blood Pressure BP Systolic BP Diastolic Pulse Ox 99 98 02/01/25 08:41 02/01/25 08:41 Temperature Temperature Source Pulse Rate 60 Respiratory Rate Blood Pressure BP Systolic BP Diastolic Pulse Ox 100 Weight Weight: 121.2 kg Body Mass Index (BMI) 44.4 Physical Exam Const alert and no apparent distress General Appearance: cooperative HEENT normocephalic Resp normal respiratory effort Cardio regular rate GI soft to palpation GI Narrative: gravid, nontender, appropriate for gestational age Extremity no calf tenderness General Extremity: edema Skin no wounds Rashes: No rashes noted Psych activity/motor behavior normal Labs Labs Labs: Blood Type AB POSITIVE Antibody Screen NEGATIVE Hct, (37-47) 33.8 % L Hgb, (12.0-15.0) 11.1 g/dL L Syphilis Total Ab, (Nonreactive) Nonreactive Assessment & Plan (1) 37 weeks gestation of : (2) Gestational diabetes: PLAN: Plan Cytotec induction over night with espinosa in am. Epidural planned
--- NOTE | 2025-02-01 08:52 | PCM.PN.OB ---
Subjective Subjective Attempted to place espinosa bulb/ ROM with attempt. Espinosa would not stay in. Clear fluid. Decel to 60s after AROM. Patient placed on hands and knees. No pitocin currently running. Objective Data Objective Data Vital Signs: Vital Signs Temp Pulse Resp BP Pulse Ox 97.4 F L 60 16 128/67 H 100 02/01/25 08:24 02/01/25 08:41 02/01/25 08:24 02/01/25 08:30 02/01/25 08:41 Weight: 121.2 kg Body Mass Index (BMI) 44.4 Intake & Output: Intake and Output for Last 24 Hours 01/30/25 01/31/25 02/01/25 23:59 23:59 23:59 Intake Total 656.17 / 656.17 Balance 656.17 / 656.17 Lab / Micro Data 01/31/25 19:50 Labs: Laboratory Results - last 24 hr 01/31/25 19:50: WBC 10.3, RBC 3.89 L, Hgb 11.1 L, Hct 33.8 L, MCV 86.9, MCH 28.5, MCHC 32.8, RDW Std Deviation 45.0 H, RDW Coeff of Melanie 14.2, Plt Count 287, MPV 11.5, Immature Gran % (Auto) 0.500, Neut % (Auto) 78.3 H, Lymph % (Auto) 14.5 L, [place] % (Auto) 6.0, Eos % (Auto) 0.6, Baso % (Auto) 0.1, Absolute Neuts (auto) 8.1 H, Absolute Lymphs (auto) 1.49, Nucleated RBC % 0, Syphilis Total Ab Nonreactive, Blood Type AB POSITIVE, Antibody Screen NEGATIVE 01/31/25 20:00: POC Glucose 127 H 01/31/25 21:00: POC Glucose 73 L 02/01/25 00:13: POC Glucose 100 02/01/25 04:12: POC Glucose 104 02/01/25 08:30: POC Glucose 100 Assessment & Plan (1) Gestational diabetes: (2) 37 weeks gestation of :
[2025-02-01] MEDS: Amnioinfusion- 0.9% NS 1,000 ML IV.SOLN. 1000 ML INTRA-UTER (09:24)
[2025-02-01] MEDS: fentaNYL-bupivacaine (epidural) 100 ML BAG EPIDURAL (09:29)
[2025-02-01] MEDS: Lactated Ringers 1,000 ML 1000 ML IV (10:32)
[2025-02-01] MEDS: fentaNYL 100 MCG/2 ML Ampul EPIDURAL (10:32)
[2025-02-01] MEDS: Lidocaine 2% (5ml sdv) 5 ML VIAL.MPF 20 ML EPIDURAL (10:35)
[2025-02-01] MEDS: Cefazolin 1 GM/5 ML Vial 3 GM IV (10:39)
[2025-02-01] MEDS: morphine PF (epidural) 5 MG/10 ML Vial 3 MG EPIDURAL (11:04)
--- NOTE | 2025-02-01 11:22 | EX.PCM.OBRPT ---
Assessment & Plan (1) Gestational diabetes: QUALIFIERS: Gestational diabetes mellitus control: unspecified Trimester: third trimester Qualified Code(s): O24.419 - Gestational diabetes mellitus in , unspecified control COMMENT: uncontrolled (2) 37 weeks gestation of : (3) Non-reassuring heart rate or rhythm affecting management of fetus: Maternal Data Information Final PHYLLIS: 02/12/25 Gestational age: 38+3 Operative Report (OB) Procedure Details Date of Procedure: 02/01/25 Procedure Start Time: 10:45 Procedure Stop Time: : Time of Delivery: 10:50 Pre-Operative Diagnosis: Nonreassuring Status Post-Operative Diagnosis: Same as Pre-operative diagnosis Classification: Stat Type of Anesthesia: Epidural Antibiotic Given: Ancef 3 grams IV x1 and Zithromax 500 mg/5 mL X1 Drain: Platt to straight drain Estimated Blood Loss: 500 Findings Description of surgery: Recurrent HR decelerations follow ROM. No pitocin was ever administered. Patient was contraction regularly from previous Cytotec doses. Amnio infusion and position changes did not improve HR. Decision was made to precede with PCS Patient taken to the OR with epidural and Platt in place. Epidural was dosed for . She was prepped and draped in the normal sterile fashion. A Pfannenstiel incision was made and carried down to the underlying fascia. The fascia was incised in the midline and extended laterally. The fascia was dissected from the muscle. The muscles divided in the midline. The peritoneum was entered bluntly and extended manually. A bladder blade was placed. A bladder flap was created. A low transverse incision was made and extended bluntly. The head was elevated to the incision. The shoulders delivered easily. The cried upon delivery. The cord was cut and clamped. The placenta was delivered with pat traction. The uterus was exteriorized and cleared of all clot and debris. The incision was repaired with 1-0 Vicryl x 2. The uterus was returned the abdomen. The gutter cleared of all clots. The peritoneum was closed with 2-0 Monocryl. Plain gut was used to reapproximate the rectus muscle. The fascia was closed with 1-0 Vicryl. The subcutaneous tissue was reapproximated with 2-0 Monocryl The skin was closed with 4-0. I performed the major parts of the procedure with the RFNA assisting with retraction and closing the skin. The sponge lap and needle count was correct x 2 Surgical findings: normal uterus, tubes and ovaries Presentation: Vertex and EZ Amniotic Membrane Rupture Type: Artificial Amniotic Fluid Description: Clear Placental Delivery Description: Spontaneous Placenta Disposition: [facility] Specimen collected: No Cord Vessel Description: 3 Vessels Cord Entanglement: Other (next to head) Cord Gases: ABG and VBG Infant A gender: Female (1 minute): 8 (5 minute): 9 Delayed Cord Clamping: Yes Refrigerator Room Clerk insurance counselor: Yes Director Child Development Center: Elissa Rodríguez Tasks completed by promotions assistant sales marketing: Closing and Retracting Additional criminal legal assistant?: No Complications Complications: No
[2025-02-01] MEDS: Oxytocin 15 Units/NS 250ml 15 UNITS/250 ML IV.SOLN 83 UNITS IV (11:50)
[2025-02-01] MEDS: Ketorolac 30 MG/ML Syringe IV ×3 (12:44→23:41)
[2025-02-01] MEDS: Lactated Ringers 1,000 ML 100 ML IV (15:36)
[2025-02-01] MEDS: 0.9% Saline Lock 10 ML Syringe IV ×2 (17:55→23:42)
[2025-02-02] VITALS (8 sets, daily range): BP systolic 100–112; BP diastolic 47–66; PULSE 62–71; RESP 16–18; TEMP 36.3–36.6; O2SAT 18–99
[2025-02-02 04:44] LABS: Hematocrit 29.7 % (37-47); Hemoglobin 9.8 g/dL (12.0-15.0); Mean Corp Hgb Conc 33.0 g/dL (32-36); Mean Corpuscular Volume 85.8 fL (81-99); Mean Platelet Vol. 11.4 fl (6.2-12.0); Platelet Count 264 K/mm3 (150-450); RBC Distribution Width CV 14.2 % (11.6-14.6); RBC Distribution Width SD 44.2 fl (35.1-43.9); Red Blood Count 3.46 M/mm3 (4.2-5.4); White Blood Count 15.7 K/mm3 (4.4-11.0)
[2025-02-02] MEDS: 0.9% Saline Lock 10 ML Syringe IV (06:06)
[2025-02-02] MEDS: Ketorolac 30 MG/ML Syringe IV (06:06)
--- NOTE | 2025-02-02 06:51 | PN.OBGYN_ITS ---
Subjective Subjective Doing well. Ambulating and voiding without difficulty. Mild lochia. Breast feeding. Objective Data Objective Data Vital Signs: Vital Signs Temp Pulse Resp BP Pulse Ox O2 Del Method 98 F 68 16 102/57 L 18 Room Air 02/02/25 03:40 02/02/25 03:40 02/02/25 03:40 02/02/25 03:40 02/02/25 03:40 02/02/25 03:40 Oxygen Delivery Method Room Air Weight: 121.2 kg Body Mass Index (BMI) 44.4 Intake & Output: Intake and Output for Last 24 Hours 01/31/25 02/01/25 02/02/25 23:59 23:59 23:59 Intake Total 2503.33 / 2503.33 Output Total 3100 / 3100 400 / 400 Balance -596.67 / -596.67 -400 / -400 Lab / Micro Data 02/02/25 04:30 Labs: Laboratory Results - last 24 hr 02/01/25 08:30: POC Glucose 100 02/01/25 12:52: POC Glucose 108 H 02/02/25 04:29: POC Glucose 93 02/02/25 04:30: WBC 15.7 H, RBC 3.46 L, Hgb 9.8 L, Hct 29.7 L, MCV 85.8, MCH 28.3, MCHC 33.0, RDW Std Deviation 44.2 H, RDW Coeff of Melanie 14.2, Plt Count 264, MPV 11.4 ROS Constitutional Constitutional: Denies headache(s) Cardiovascular Cardiovascular: Denies chest pain or dyspnea Gastrointestinal Gastrointestinal: Denies nausea or vomiting Genitourinary Genitourinary: Denies dysuria Physical Exam Const alert, oriented x3 and no apparent distress General Appearance: cooperative and comfortable Eyes PERRL and EOMs intact bilaterally Resp normal respiratory effort GI soft to palpation and non-tender GI Narrative: soft, moderate distention, fundus firm, appropriately tender. Abdominal bandage clean dry and intact Uterus Palpation: uterus fundus firm ( below umbilicus) Extremity normal to inspection and full ROM Neuro oriented x3 and CN's II-XII intact bilaterally Psych mental status grossly normal Assessment & Plan (1) Gestational diabetes: QUALIFIERS: Gestational diabetes mellitus control: unspecified T rimester: third trimester Qualified Code(s): O24.419 - Gestational diabetes mellitus in , unspecified control COMMENT: uncontrolled (2) S/P : PLAN: Plan plan for discharge tomorrow
[2025-02-02] MEDS: Senna/Docusate Sodium 1 Tablet PO (12:28)
[2025-02-03 01:09] VITALS: BP 122/73; PULSE 65; RESP 16; TEMP 36.2; O2SAT 100
--- NOTE | 2025-02-03 06:32 | PCM.DC.SUM ---
Providers Date of Admission: 01/31/25 Primary Care Physician: Dr. Miles Woodall MD Reason For Visit: PRIMARY C SECTION Diagnosis Discharge Diagnosis (1) Gestational diabetes: Status: Acute Code(s): O24.419 - Gestational diabetes mellitus in , unspecified control Qualifiers: Gestational diabetes mellitus control: unspecified Trimester: third trimester Qualified Code(s): O24.419 - Gestational diabetes mellitus in , unspecified control (2) S/P : Status: Acute Code(s): Z98.891 - History of uterine scar from previous surgery (3) Care and examination of lactating mother: Status: Acute Code(s): Z39.1 - Encounter for care and examination of lactating mother (4) Blood clotting disorder: Status: Acute Code(s): D68.9 - Coagulation defect, unspecified Plan PO C/S Pain controlled with Tylenol PO and Ibuprofen PO Hx of pulmonary embolism - Rx for Lovenox 40 mg SQ DAILY sent to pharmacy- patient aware will need to remain on until physician discontinues D/C home with follow up in office this week for incision check Medications at Discharge Home Medications calcium carb-ergocalciferol (vit D2) 600 mg calcium-200 unit tablet tab PO 12/26/24 coenzyme Q10 100 mg capsule (Co Q-10) 100 mg PO DAILY 12/26/24 metformin 500 mg tablet,extended release 24 hr 1,000 mg PO BID GDM 12/26/24 vit no.95-ferrous fumarate 28 mg-folic acid 800 mcg tablet () 1 tab PO DAILY 12/26/24 acetaminophen 500 mg tablet 1,000 mg (2 x 500 mg) PO Q6 #0 tabs 02/03/25 enoxaparin 40 mg/0.4 mL subcutaneous syringe 40 mg (0.4 mL) subcut Q24H #4 mL 02/03/25 ibuprofen 600 mg tablet 600 mg PO Q6H #0 tabs 02/03/25 sennosides 8.6 mg-docusate sodium 50 mg tablet (Stimulant Laxative Plus) 1 - 2 tab PO DAILY #0 tabs 02/03/25 Hospital Course Operations section Procedures None Summary of Care Provided Minutes Spent on Discharge: 15 Hospital Course: Patient had section. Hospital course was uneventful. Physical Exam Narrative Patient seen at bedside. Laying in chair. Ambulating and voiding without difficulty. Passing flatus. Denies any headache, dizziness, SOB, or CP. with support. Denies current pain. Desires discharge home today. Const alert and no apparent distress General Appearance: cooperative and comfortable Exam Limitations: no limitations HEENT normocephalic Eyes General Eye: normal appearance of both eyes Neck full ROM General: normal visual inspection Chest Chest: symmetrical chest wall rise Resp normal respiratory effort and normal air movement Effort and Inspection: symmetric chest movement Auscultation: clear to auscultation bilaterally Cardio regular rate and regular rhythm GI normal to inspection, nondistended, normoactive bowel sounds Back/Spine normal ROM Extremity full ROM and no calf tenderness General Extremity: normal exam except as noted Skin no rashes or lesions noted Wound Narrative: Dressing is dry and intact. Neuro CN's II-XII intact bilaterally Psych mental status grossly normal Weight / BMI Weight Weight: 267 lb 3.2 oz Body Mass Index (BMI) 44.4 ABG / Lab / Microbiology Data 02/02/25 04:30 D/C Instructions Discharge Activity: May Drive (2 weeks) and May Shower May resume sexual activity in: 6-8 weeks Weight Bearing Status: Weight bearing as tolerated Lifting Restricted to (Lbs): 25 Call your doctor if your incision/area has: Continuous Slow Oozing, Sudden Increased Bleeding, Increased Pain/ Swelling, Increased Redness, Foul Smelling Discharge and Swelling at the incision site Call your doctor if you observe: Fever of 101 or Higher, Numbness or Tingling, Using more than 1 pad per hour, Shortness of breath, Dizziness, Swelling in the ankles, Chest pain, Calf discomfort and Uncontrolled pain Suture Line Care: Avoid Pulling/Pushing Remove Dressing in: 5 days (Remove yourself or call office and schedule appointment for dressing removal.) DC O2, CPAP, BIPAP Needs Home O2 Discharge instructions: No When: 5 days for dressing removal or 2 weeks for post appointment. Meaningful Use Info Meaningful Use Meaningful Use Diagnoses (Choose all that apply): None applicable Discharge Plan Admission Admit Date/Time: 01/31/25 19:13 Primary Reason for Your Visit: Delivery Attending Provider: Regina Reddy Primary Care Provider: Miles Woodall Discharge Orders/Prescriptions Prescriptions: New sennosides-docusate sodium [Stimulant Laxative Plus] 8.6-50 mg Tablet 1 - 2 tab PO DAILY Qty: 0 0RF acetaminophen 500 mg Tablet 1,000 mg PO Q6 Qty: 0 0RF ibuprofen 600 mg Tablet 600 mg PO Q6H Qty: 0 0RF enoxaparin 40 mg/0.4 mL Syringe 40 mg subcut Q24H Qty: 4 5RF Continued PNV no.95-ferrous fumarate-FA [] 28 mg iron- 800 mcg tablet 1 tab PO DAILY metformin 500 mg tablet extended release 24 hr 1,000 mg PO BID calcium carbonate-vitamin D2 600 mg calcium- 200 unit tablet PO coenzyme Q10 [Co Q-10] 100 mg capsule 100 mg PO DAILY Discontinued aspirin 81 MG tablet 81 mg PO DAILY@0800 Referrals / Follow Up: Miles Woodall MD [Primary Care Provider, Medical] Disposition Disposition (needs filled in before D/C Order can be placed): Home, Self Care
[2025-02-03 08:11] VITALS: BP 123/64; PULSE 66; RESP 16; TEMP 36.6; O2SAT 99
[2025-02-03] MEDS: Senna/Docusate Sodium 1 Tablet PO (12:34)
[2025-02-03 13:00] VITALS: BP 119/75; PULSE 80; RESP 16; TEMP 36.6; O2SAT 98
--- NOTE | 2025-03-14 15:26 | NURSING ---
Decision time for C/S updated after discussion with primary RN and verified.
== END 2025-02-03 14:10 | disposition home or self-care (01) | DRG 788 ==
PROVIDERS: Advanced Practice Midwife; Obstetrics & Gynecology; Admitting Provider Obstetrics & Gynecology; PCP Family Medicine; Referring Provider Obstetrics & Gynecology; Visit Provider Obstetrics & Gynecology
DX: O24.425 Gestational diabetes mellitus in childbirth, controlled by oral hypoglycemic drugs (principal); O69.82X0 Labor and delivery complicated by other cord entanglement, without compression, not applicable or unspecified; O76 Abnormality in fetal heart rate and rhythm complicating labor and delivery; Z3A.38 38 weeks gestation of pregnancy; Z37.0 Single live birth; Z86.711 Personal history of pulmonary embolism
CPT/HCPCS: 59025; 59050; 82962; 85025; 85027; 86780; 86850; 86900; 86901; 99221; A4216; G0378; J2405